=== PATIENT | male | born 1950 | race Caucasian/White ===

== ENCOUNTER 2019-06-20 18:18 | Inpatient (IN) | payer OTHER ==
[~2019-06-20] VITALS: Ht 172.7 cm; Wt 92.7 kg
[2019-06-20] MEDS ORDERED: AMLO10TA8 PO (18:44)
[2019-06-20] MEDS ORDERED: MELA3TAB19 PO (18:44)
[2019-06-20] MEDS ORDERED: ERGO500027 PO (18:44)
[2019-06-20] MEDS ORDERED: ASPI-630 PO (18:44)
[2019-06-20] MEDS ORDERED: TRAZ-120 PO ×2 (18:44)
[2019-06-20] MEDS ORDERED: traZODone 50 MG TABLET. PO PRN (18:45)
[2019-06-20 18:56] VITALS: BP 165/95
[2019-06-20] MEDS ORDERED: MAGNESIUM HYDROXIDE 2,400 MG/30 ML ORAL.SUSP. PO PRN (19:00)
[2019-06-20] MEDS ORDERED: METHYL SALICYLATE/MENTHOL TOPICAL OINTMENT 57GM TUBE. TP PRN (19:00)
[2019-06-20] MEDS ORDERED: ACETAMINOPHEN 325 MG TABLET PO PRN (19:00)
[2019-06-20] MEDS ORDERED: MAG HYDROX/AL HYDROX/SIMETH 30 ML ORAL.SUSP PO PRN (19:00)
--- NOTE | 2019-06-20 20:21 | PDOC ---
Exam Note: Jassi Note: Please also refer to the separate dictated note~for this date of service dictated separately. Discussed the patient with Nursing staff reviewed the chart.~Reviewed interim history and current functioning. Reviewed vital signs,~Labs/ Radiology~and current medications noted below. Continue current treatment with the changes noted in the dictated addendum note Assessment: Vital Signs/I&O: Vital Signs Date Time Temp Pulse Resp B/P (MAP) Pulse Ox O2 Delivery O2 Flow Rate FiO2 06/20/19 18:56 97.4 117 20 165/95 (118) 96 Current Medications: I have reviewed the current psychotropics carefully including drug interactions. Risk benefit ratio favors no change other than as noted in my dictated progress note. OBDULIA MOLINA MD Jun 20, 2019 20:21
[2019-06-20] MEDS: MELATONIN 3 MG TABLET PO SCH (21:00)
[2019-06-20] MEDS: traZODone 50 MG TABLET. PO SCH (21:00)
[2019-06-21 05:29] VITALS: BP 134/82
[2019-06-21 06:31] LABS: BASO # 0.1 x10^3/uL (0.0-0.2); BASO % 1 % (0-3); EOS # 0.3 x10^3/uL (0.0-0.7); EOS % 5 % (0-3); HEMATOCRIT 41.6 % (39.0-53.0); HEMOGLOBIN 13.9 g/dL (13.0-17.5); LYMPH # 1.3 x10^3/uL (1.0-4.8); LYMPH % 21 % (24-48); MEAN CORPUSCULAR HEMOGLOBIN 30 pg (25-35); MEAN CORPUSCULAR HGB CONC 33 g/dL (31-37); MEAN CORPUSCULAR VOLUME 91 fL (79-100); MONO % 17 % (0-9); NEUT # 3.5 x10^3uL (1.8-7.7); NEUT % 56 % (31-73); PLATELET COUNT 286 x10^3/uL (140-400); RED BLOOD COUNT 4.57 x10^6/uL (4.30-5.70); RED CELL DISTRIBUTION WIDTH 13.8 % (11.5-14.5); WHITE BLOOD COUNT 6.1 x10^3/uL (4.0-11.0)
[2019-06-21 06:53] LABS: ALBUMIN 3.4 g/dL (3.4-5.0); CALCIUM 8.6 mg/dL (8.5-10.1); CREATININE 0.9 mg/dL (0.7-1.3); GFR 83.4; POTASSIUM 4.4 mmol/L (3.5-5.1); TOTAL BILIRUBIN 0.4 mg/dL (0.2-1.0); TOTAL PROTEIN 6.7 g/dL (6.4-8.2)
[2019-06-21] MEDS: ASPIRIN 81 MG TAB.CHEW PO SCH (08:40)
[2019-06-21] MEDS: amLODIPine BESYLATE 10 MG TABLET PO SCH (08:41)
[2019-06-21 10:52] LABS: THYROID STIM HORMONE (TSH) 1.579 uIU/mL (0.358-3.740)
[2019-06-21 12:07] LABS: THYROXINE 5.5 ug/dL (4.5-12.0)
[2019-06-21 15:44] VITALS: BP 126/77
--- NOTE | 2019-06-21 19:42 | EKG ---
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
[2019-06-21] MEDS: MELATONIN 3 MG TABLET PO SCH (20:43)
[2019-06-21] MEDS: traZODone 50 MG TABLET. PO SCH (20:43)
[2019-06-21] MEDS ORDERED: DIVALPROEX 125 MG CAP.SPRINK PO SCH (21:00)
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
[2019-06-21 23:06] LABS: HEMOGLOBIN A1C 5.2 % (4.8-5.6)
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
[2019-06-22 05:51] VITALS: BP 126/73
[2019-06-22] MEDS: amLODIPine BESYLATE 10 MG TABLET PO SCH (09:00)
[2019-06-22] MEDS: ASPIRIN 81 MG TAB.CHEW PO SCH (09:00)
[2019-06-22] MEDS: DIVALPROEX 125 MG CAP.SPRINK PO SCH ×2 (09:00→17:50)
[2019-06-22 16:08] VITALS: BP 115/72
[2019-06-22] MEDS ORDERED: NEOMY/BACITR/POLYMYXIN OINT PACKET. TP PRN (18:45)
[2019-06-22] MEDS: MELATONIN 3 MG TABLET PO SCH (20:09)
[2019-06-22] MEDS: traZODone 50 MG TABLET. PO SCH (20:09)
--- NOTE | 2019-06-22 21:46 | PDOC ---
Exam Note: Jassi Note: Please also refer to the separate dictated note~for this date of service dictated separately.~Patient seen individually. Discussed the patient with Nursing staff reviewed the chart.~Reviewed interim history and current functioning. Reviewed vital signs,~Labs/ Radiology~and current medications noted below. Continue current treatment with the changes noted in the dictated addendum note Assessment: Vital Signs/I&O: Vital Signs Date Time Temp Pulse Resp B/P (MAP) Pulse Ox O2 Delivery O2 Flow Rate FiO2 06/22/19 16:08 97.2 72 20 115/72 (86) 98 06/21/19 05:29 Room Air I & O 06/21/19 06/21/19 06/22/19 15:00 23:00 07:00 Intake Total 600 ml 240 ml 240 ml Balance 600 ml 240 ml 240 ml Current Medications: Meds: Current Medications Medications (Trade) Dose Ordered Sig/Vicente Route PRN Reason Start Time Stop Time Status Last Admin Dose Admin Divalproex Sodium (Depakote Sprinkles) 125 mg BID@0900,1700 PO 06/22/19 09:00 06/22/19 17:50 I have reviewed the current psychotropics carefully including drug interactions. Risk benefit ratio favors no change other than as noted in my dictated progress note. Diagnosis: Problems: (1) Major neurocognitive disorder (2) Anxiety disorder (3) Frontotemporal dementia with behavioral disturbance (4) Impulse control disorder OBDULIA MOLINA MD Jun 22, 2019 21:46
--- NOTE | 2019-06-22 21:46 | PDOC ---
Exam Note: Jassi Note: This is a late entry for DOS 06/21/2019. Please also refer to the separate dictated note~for this date of service dictated separately.~Patient seen individually. Discussed the patient with Nursing staff reviewed the chart.~Reviewed interim history and current functioning. Reviewed vital signs,~Labs/ Radiology~and current medications noted below. Continue current treatment with the changes noted in the dictated addendum note Assessment: Vital Signs/I&O: Vital Signs Date Time Temp Pulse Resp B/P (MAP) Pulse Ox O2 Delivery O2 Flow Rate FiO2 06/22/19 16:08 97.2 72 20 115/72 (86) 98 06/21/19 05:29 Room Air I & O 06/21/19 06/21/19 06/22/19 15:00 23:00 07:00 Intake Total 600 ml 240 ml 240 ml Balance 600 ml 240 ml 240 ml Current Medications: Meds: Current Medications Medications (Trade) Dose Ordered Sig/Vicente Route PRN Reason Start Time Stop Time Status Last Admin Dose Admin Divalproex Sodium (Depakote Sprinkles) 125 mg BID@0900,1700 PO 06/22/19 09:00 06/22/19 17:50 I have reviewed the current psychotropics carefully including drug interactions. Risk benefit ratio favors no change other than as noted in my dictated progress note. Diagnosis: Problems: (1) Anxiety disorder (2) Frontotemporal dementia with behavioral disturbance (3) Impulse control disorder (4) Major neurocognitive disorder OBDULIA MOLINA MD Jun 22, 2019 21:46
[2019-06-23 05:50] VITALS: BP 127/78
[2019-06-23] MEDS: ASPIRIN 81 MG TAB.CHEW PO SCH (09:09)
[2019-06-23] MEDS: amLODIPine BESYLATE 10 MG TABLET PO SCH (09:09)
[2019-06-23] MEDS: DIVALPROEX 125 MG CAP.SPRINK PO SCH ×2 (09:09→17:13)
[2019-06-23 12:23] LABS: BACTERIA,URINE 0 /HPF (0-FEW); BILIRUBIN,URINE NEG (NEG); CLARITY,URINE CLEAR; COLOR,URINE YELLOW; GLUCOSE,URINE NEG (NEG); NITRITE,URINE NEG (NEG); RBC,URINE OCC /HPF (0-2); SQUAMOUS EPITHELIAL CELL,UR OCC /LPF; UROBILINOGEN,URINE 0.2 mg/dL (0.2 mg/dL); WBC,URINE RARE /HPF (0-4)
[2019-06-23 16:00] VITALS: BP 115/82
--- NOTE | 2019-06-23 20:22 | PDOC ---
Exam Note: Jassi Note: Please also refer to the separate dictated note~for this date of service dictated separately.~Patient seen individually. Discussed the patient with Nursing staff reviewed the chart.~Reviewed interim history and current functioning. Reviewed vital signs,~Labs/ Radiology~and current medications noted below. Continue current treatment with the changes noted in the dictated addendum note Assessment: Vital Signs/I&O: Vital Signs Date Time Temp Pulse Resp B/P (MAP) Pulse Ox O2 Delivery O2 Flow Rate FiO2 06/23/19 16:00 97.7 88 16 115/82 (93) 96 06/21/19 05:29 Room Air I & O 06/22/19 06/22/19 06/23/19 14:59 22:59 06:59 Intake Total 960 ml 840 ml Balance 960 ml 840 ml Labs: Laboratory Tests Test 06/23/19 11:15 Urine Collection Type Unknown Urine Color Yellow Urine Clarity Clear Urine pH 8.0 Urine Specific Erlanger 1.015 Urine Protein Neg (NEG-TRACE) Urine Glucose (UA) Neg mg/dL (NEG) Urine Ketones (Stick) Neg mg/dL (NEG) Urine Blood Neg (NEG) Urine Nitrite Neg (NEG) Urine Bilirubin Neg (NEG) Urine Urobilinogen Dipstick 0.2 mg/dL (0.2 mg/dL) Urine Leukocyte Esterase Neg (NEG) Urine RBC Occ /HPF (0-2) Urine WBC Rare /HPF (0-4) Urine Squamous Epithelial Cells Occ /LPF Urine Bacteria 0 /HPF (0-FEW) Current Medications: I have reviewed the current psychotropics carefully including drug interactions. Risk benefit ratio favors no change other than as noted in my dictated progress note. Diagnosis: Problems: (1) Major neurocognitive disorder (2) Anxiety disorder (3) Frontotemporal dementia with behavioral disturbance (4) Impulse control disorder OBDULIA MOLINA MD Jun 23, 2019 20:22
[2019-06-23] MEDS: MELATONIN 3 MG TABLET PO SCH (20:34)
[2019-06-23] MEDS: traZODone 50 MG TABLET. PO SCH (20:34)
--- NOTE | 2019-06-24 00:23 | PN ---
DATE: 06/22/2019 PSYCHIATRIC PROGRESS NOTE This late entry 06/22/2019 covers elements not covered in my initial note. SUBJECTIVE: I met with the patient evening of 06/22/2019. The patient slept 7 hours previous night. He has been cooperative, tolerating the Depakote, which was initiated for his impulse control consequent to the frontotemporal dementia. REVIEW OF SYSTEMS: No CV, , pulmonary, eye system symptoms on review. MENTAL STATUS EXAM: Reasonably oriented. Speech is coherent, abstraction fair, computation impaired, language function intact, attention span short. Mood and affect showing improvement. LABORATORY DATA: Reviewed. IMPRESSION: Unchanged from initial note. PLAN: No change from initial note. OBDULIA MOLINA MD DR: CHANNING/eileen JOB#: [id number] / [id number]
--- NOTE | 2019-06-24 00:26 | PN ---
DATE: 06/21/2019 PSYCHIATRIC PROGRESS NOTE This late entry of 06/21 covers elements not covered in my initial note. SUBJECTIVE: I met with the patient on the evening of 06/21. The patient had slept 6-1/4 hours the previous night. The patient continues to have poor social skills, somewhat impulsive, but is reasonably oriented. REVIEW OF SYSTEMS: No CV, , pulmonary, eye system symptoms on review. MENTAL STATUS EXAMINATION: Reasonably oriented. Speech is coherent, abstraction fair, computation impaired, language function intact. Mood and affect showing some improvement. No active suicidal or homicidal ideation. PLAN: May consider SSRIs for his anxiety, impulse control problems; Depakote as a mood stabilizer; and we will adjust it to reach therapeutic level. OBDULIA MOLINA MD DR: CHANNING/eileen JOB#: [id number] / [id number]
[2019-06-24 06:16] VITALS: BP 135/64
[2019-06-24 07:22] LABS: BASO # 0.1 x10^3/uL (0.0-0.2); BASO % 1 % (0-3); EOS # 0.5 x10^3/uL (0.0-0.7); EOS % 8 % (0-3); HEMATOCRIT 42.9 % (39.0-53.0); HEMOGLOBIN 14.5 g/dL (13.0-17.5); LYMPH # 1.2 x10^3/uL (1.0-4.8); LYMPH % 21 % (24-48); MEAN CORPUSCULAR HEMOGLOBIN 31 pg (25-35); MEAN CORPUSCULAR HGB CONC 34 g/dL (31-37); MEAN CORPUSCULAR VOLUME 92 fL (79-100); MONO # 0.9 x10^3/uL (0.0-1.1); MONO % 15 % (0-9); NEUT # 3.2 x10^3uL (1.8-7.7); NEUT % 55 % (31-73); PLATELET COUNT 309 x10^3/uL (140-400); RED BLOOD COUNT 4.68 x10^6/uL (4.30-5.70); WHITE BLOOD COUNT 5.9 x10^3/uL (4.0-11.0)
[2019-06-24 07:50] LABS: ALBUMIN 3.8 g/dL (3.4-5.0); ALK PHOS 135 U/L (46-116); ALT (SGPT) 43 U/L (16-63); ANION GAP 6 (6-14); AST (SGOT) 29 U/L (15-37); BLOOD UREA NITROGEN 14 mg/dL (8-26); BUN/CREATININE RATIO 16 (6-20); CALCIUM 9.2 mg/dL (8.5-10.1); CARBON DIOXIDE 32 mmol/L (21-32); CHLORIDE 106 mmol/L (98-107); CREATININE 0.9 mg/dL (0.7-1.3); GFR 83.4; GLUCOSE 104 mg/dL (70-99); POTASSIUM 4.1 mmol/L (3.5-5.1); SODIUM 144 mmol/L (136-145); TOTAL BILIRUBIN 0.3 mg/dL (0.2-1.0); TOTAL PROTEIN 7.6 g/dL (6.4-8.2)
[2019-06-24 07:51] LABS: VAL ACID 12 mcg/mL (50-100)
--- NOTE | 2019-06-24 08:20 | EKG ---
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
[2019-06-24] MEDS: ASPIRIN 81 MG TAB.CHEW PO SCH (08:33)
[2019-06-24] MEDS: amLODIPine BESYLATE 10 MG TABLET PO SCH (08:34)
[2019-06-24] MEDS: DIVALPROEX 125 MG CAP.SPRINK PO SCH ×2 (08:34→16:04)
[2019-06-24 15:45] VITALS: BP 123/70
[2019-06-24] MEDS: MELATONIN 3 MG TABLET PO SCH (19:55)
[2019-06-24] MEDS: traZODone 50 MG TABLET. PO SCH (19:55)
--- NOTE | 2019-06-24 20:46 | PDOC ---
Exam Note: Jassi Note: Please also refer to the separate dictated note~for this date of service dictated separately.~Patient seen individually. Discussed the patient with Nursing staff reviewed the chart.~Reviewed interim history and current functioning. Reviewed vital signs,~Labs/ Radiology~and current medications noted below. Continue current treatment with the changes noted in the dictated addendum note Assessment: Vital Signs/I&O: Vital Signs Date Time Temp Pulse Resp B/P (MAP) Pulse Ox O2 Delivery O2 Flow Rate FiO2 06/24/19 15:45 97.2 99 16 123/70 (87) 96 06/24/19 06:16 Room Air I & O 06/23/19 06/23/19 06/24/19 15:00 23:00 07:00 Intake Total 840 ml 240 ml 480 ml Balance 840 ml 240 ml 480 ml Labs: Laboratory Tests Test 06/24/19 06:43 White Blood Count 5.9 x10^3/uL (4.0-11.0) Red Blood Count 4.68 x10^6/uL (4.30-5.70) Hemoglobin 14.5 g/dL (13.0-17.5) Hematocrit 42.9 % (39.0-53.0) Mean Corpuscular Volume 92 fL (79-100) Mean Corpuscular Hemoglobin 31 pg (25-35) Mean Corpuscular Hemoglobin Concent 34 g/dL (31-37) Red Cell Distribution Width 14.0 % (11.5-14.5) Platelet Count 309 x10^3/uL (140-400) Neutrophils (%) (Auto) 55 % (31-73) Lymphocytes (%) (Auto) 21 % (24-48) L Monocytes (%) (Auto) 15 % (0-9) H Eosinophils (%) (Auto) 8 % (0-3) H Basophils (%) (Auto) 1 % (0-3) Neutrophils # (Auto) 3.2 x10^3uL (1.8-7.7) Lymphocytes # (Auto) 1.2 x10^3/uL (1.0-4.8) Monocytes # (Auto) 0.9 x10^3/uL (0.0-1.1) Eosinophils # (Auto) 0.5 x10^3/uL (0.0-0.7) Basophils # (Auto) 0.1 x10^3/uL (0.0-0.2) Sodium Level 144 mmol/L (136-145) Potassium Level 4.1 mmol/L (3.5-5.1) Chloride Level 106 mmol/L (98-107) Carbon Dioxide Level 32 mmol/L (21-32) Anion Gap 6 (6-14) Blood Urea Nitrogen 14 mg/dL (8-26) Creatinine 0.9 mg/dL (0.7-1.3) Estimated GFR (Cockcroft-Gault) 83.4 BUN/Creatinine Ratio 16 (6-20) Glucose Level 104 mg/dL (70-99) H Calcium Level 9.2 mg/dL (8.5-10.1) Total Bilirubin 0.3 mg/dL (0.2-1.0) Aspartate Amino Transferase (AST) 29 U/L (15-37) Alanine Aminotransferase (ALT) 43 U/L (16-63) Alkaline Phosphatase 135 U/L (46-116) H Total Protein 7.6 g/dL (6.4-8.2) Albumin 3.8 g/dL (3.4-5.0) Albumin/Globulin Ratio 1.0 (1.0-1.7) Valproic Acid Level 12 mcg/mL (50-100) L Valproic Acid Last Dose Date 06/23/19 Valproic Acid Last Dose Time 1700 Current Medications: I have reviewed the current psychotropics carefully including drug interactions. Risk benefit ratio favors no change other than as noted in my dictated progress note. Diagnosis: Problems: (1) Major neurocognitive disorder (2) Anxiety disorder (3) Frontotemporal dementia with behavioral disturbance (4) Impulse control disorder OBDULIA MOLINA MD Jun 24, 2019 20:46
[2019-06-25 05:45] VITALS: BP 125/81
[2019-06-25] MEDS: ASPIRIN 81 MG TAB.CHEW PO SCH (08:59)
[2019-06-25] MEDS: DIVALPROEX 125 MG CAP.SPRINK PO SCH ×2 (08:59→17:27)
[2019-06-25] MEDS: amLODIPine BESYLATE 10 MG TABLET PO SCH (08:59)
[2019-06-25 15:59] VITALS: BP 123/78
--- NOTE | 2019-06-25 17:10 | PN ---
DATE: 06/23/2019 PSYCHIATRIC PROGRESS NOTE This late entry 06/23/2019 covers elements not covered in my initial note. SUBJECTIVE: I met with the patient evening of 06/23/2019. The patient slept reasonably previous night. Overall, he states he is feeling better with the Depakote, feels his mind is clearer. I returned a call from the patient's daughter and discussed the patient's diagnosis, treatment options, placement options possibly at [facility] in [place]. REVIEW OF SYSTEMS: No CV, , pulmonary, eye system symptoms on review. MENTAL STATUS EXAMINATION: The patient is reasonably oriented. Speech is coherent, abstraction fair, computation impaired, language function intact, attention span short. Mood and affect improved. LABORATORY DATA: Reviewed. IMPRESSION: Unchanged from initial note. PLAN: No change from initial note. MAN Tonie MOLINA MD DR: CHANNING/eileen JOB#: [id number] / [id number]
--- NOTE | 2019-06-25 18:52 | PN ---
DATE: 06/24/2019 PSYCHIATRIC PROGRESS NOTE This late entry 06/24/2019 covers elements not covered in my initial note. SUBJECTIVE: I met with the patient evening of 06/24/2019. The patient slept 6-1/4 hours previous night. Overall, the patient is doing better per DARRICK Crouch. Valproic acid level is 12, subtherapeutic, but still adequate since he feels his mind is clearer, he is less impulsive and states his mind is "sharper." REVIEW OF SYSTEMS: No CV, , pulmonary, eye system symptoms on review. MENTAL STATUS EXAM: Reasonably oriented. Speech is coherent, abstraction fair, computation reasonable, language function intact, attention span short. Mood and affect is improved, less impulsive. LABORATORY DATA: Reviewed. IMPRESSION: Unchanged from initial note. PLAN: No change from initial note. MAN Tonie MOLINA MD DR: CHANNING/eileen JOB#: [id number] / [id number]
[2019-06-25] MEDS: traZODone 50 MG TABLET. PO SCH (19:57)
[2019-06-25] MEDS: MELATONIN 3 MG TABLET PO SCH (19:57)
--- NOTE | 2019-06-25 20:34 | PDOC ---
Exam Note: Jassi Note: Please also refer to the separate dictated note~for this date of service dictated separately.~Patient seen individually. Discussed the patient with Nursing staff reviewed the chart.~Reviewed interim history and current functioning. Reviewed vital signs,~Labs/ Radiology~and current medications noted below. Continue current treatment with the changes noted in the dictated addendum note Assessment: Vital Signs/I&O: Vital Signs Date Time Temp Pulse Resp B/P (MAP) Pulse Ox O2 Delivery O2 Flow Rate FiO2 06/25/19 15:59 98.0 97 14 123/78 (93) 96 Room Air I & O 06/24/19 06/24/19 06/25/19 15:00 23:00 07:00 Intake Total 1200 ml 600 ml 360 ml Balance 1200 ml 600 ml 360 ml Current Medications: I have reviewed the current psychotropics carefully including drug interactions. Risk benefit ratio favors no change other than as noted in my dictated progress note. Diagnosis: Problems: (1) Major neurocognitive disorder (2) Anxiety disorder (3) Frontotemporal dementia with behavioral disturbance (4) Impulse control disorder OBDULIA MOLINA MD Jun 25, 2019 20:34
[2019-06-26 05:51] VITALS: BP 136/79
[2019-06-26] MEDS: DIVALPROEX 125 MG CAP.SPRINK PO SCH ×2 (08:43→17:11)
[2019-06-26] MEDS: ASPIRIN 81 MG TAB.CHEW PO SCH (08:43)
[2019-06-26] MEDS: CHOLECALCIFEROL (VITAMIN D3) 50,000 UNIT CAPSULE PO SCH (08:43)
[2019-06-26] MEDS: amLODIPine BESYLATE 10 MG TABLET PO SCH (08:43)
[2019-06-26 16:38] VITALS: BP 130/77
[2019-06-26] MEDS: MELATONIN 3 MG TABLET PO SCH (20:14)
[2019-06-26] MEDS: traZODone 50 MG TABLET. PO SCH (20:14)
--- NOTE | 2019-06-26 20:34 | PDOC ---
Exam Note: Jassi Note: Please also refer to the separate dictated note~for this date of service dictated separately.~Patient seen individually. Discussed the patient with Nursing staff reviewed the chart.~Reviewed interim history and current functioning. Reviewed vital signs,~Labs/ Radiology~and current medications noted below. Continue current treatment with the changes noted in the dictated addendum note Assessment: Vital Signs/I&O: Vital Signs Date Time Temp Pulse Resp B/P (MAP) Pulse Ox O2 Delivery O2 Flow Rate FiO2 06/26/19 16:38 98.0 79 18 130/77 (94) 97 06/26/19 05:51 Room Air I & O 06/25/19 06/25/19 06/26/19 15:00 23:00 07:00 Intake Total 720 ml 360 ml Balance 720 ml 360 ml Current Medications: Meds: Current Medications Medications (Trade) Dose Ordered Sig/Vicente Route PRN Reason Start Time Stop Time Status Last Admin Dose Admin Vitamin D (Vitamin D3) 50,000 unit WEEKLY PO 06/26/19 09:00 06/26/19 08:43 I have reviewed the current psychotropics carefully including drug interactions. Risk benefit ratio favors no change other than as noted in my dictated progress note. Diagnosis: Problems: (1) Major neurocognitive disorder (2) Anxiety disorder (3) Frontotemporal dementia with behavioral disturbance (4) Impulse control disorder OBDULIA MOLINA MD Jun 26, 2019 20:34
[2019-06-27 06:25] VITALS: BP 149/80
[2019-06-27] MEDS: DIVALPROEX 125 MG CAP.SPRINK PO SCH ×2 (08:15→17:13)
[2019-06-27] MEDS: ASPIRIN 81 MG TAB.CHEW PO SCH (08:15)
[2019-06-27] MEDS: amLODIPine BESYLATE 10 MG TABLET PO SCH (08:16)
--- NOTE | 2019-06-27 12:27 | PN ---
DATE: 06/25/2019 This late entry 06/25 covers elements not covered in my initial note. SUBJECTIVE: I met with the patient evening of 06/25. The patient slept 7-1/4 hours previous night per Autumn. He reportedly had a good day, does have some poor social skills consistent with his frontotemporal dementia, but not agitated, disruptive, intrusive. Compliant with medications, pleasant. REVIEW OF SYSTEMS: No CV, , pulmonary, eye system symptoms on review. MENTAL STATUS EXAM: The patient is reasonably oriented. Speech is coherent, abstraction fair, computation reasonable, language function intact, attention span short. Mood and affect is improved. LABORATORY DATA: Reviewed. ASSESSMENT: He is tolerating the Depakote and I do not see a need to add SSRIs or cholinesterase inhibitors for now. PLAN: No further change for now. MAN Tonie MOLINA MD DR: CHANNING/eileen JOB#: [id number] / [id number]
[2019-06-27 15:55] VITALS: BP 135/78
--- NOTE | 2019-06-27 18:59 | PN ---
DATE: 06/26/2019 PSYCHIATRIC PROGRESS NOTE This late entry 06/26/2019 covers elements not covered in my initial note. SUBJECTIVE: I met with the patient evening of 06/26/2019, staff at the treatment team, meeting with the entire team in the morning and the patient's daughter who is a family physician attended this conference. Pennie, the daughter, reviewed the patient's history and we discussed the patient's progress, diagnosis, current treatment on Depakote while we are leaving open the option of using cholinesterase inhibitors and SSRIs, but only if needed. He is sleeping about 6-1/2 hours average, much more appropriate on the unit. REVIEW OF SYSTEMS: No CV, , Pulmonary, Eye, ENT system symptoms on review. MENTAL STATUS EXAM: Reasonably oriented. Speech is coherent, very pleasant, verbal, interactive, abstraction fair, computation impaired, language function intact, other times computation is reasonable. Mood and affect is improved. No suicidal or homicidal ideation. LABORATORY DATA: Reviewed. IMPRESSION: Unchanged from initial note. PLAN: No change from initial note. OBDULIA MOLINA MD DR: CHANNING/eileen JOB#: [id number] / [id number]
[2019-06-27] MEDS: traZODone 50 MG TABLET. PO SCH (19:57)
[2019-06-27] MEDS: MELATONIN 3 MG TABLET PO SCH (19:57)
--- NOTE | 2019-06-27 20:47 | PDOC ---
Exam Note: Jassi Note: Please also refer to the separate dictated note~for this date of service dictated separately.~Patient seen individually. Discussed the patient with Nursing staff reviewed the chart.~Reviewed interim history and current functioning. Reviewed vital signs,~Labs/ Radiology~and current medications noted below. Continue current treatment with the changes noted in the dictated addendum note Assessment: Vital Signs/I&O: Vital Signs Date Time Temp Pulse Resp B/P (MAP) Pulse Ox O2 Delivery O2 Flow Rate FiO2 06/27/19 15:55 98.6 85 20 135/78 (97) 96 06/26/19 05:51 Room Air I & O 06/26/19 06/26/19 06/27/19 15:00 23:00 07:00 Intake Total 1200 ml 480 ml 240 ml Balance 1200 ml 480 ml 240 ml Current Medications: I have reviewed the current psychotropics carefully including drug interactions. Risk benefit ratio favors no change other than as noted in my dictated progress note. Diagnosis: Problems: (1) Major neurocognitive disorder (2) Anxiety disorder (3) Frontotemporal dementia with behavioral disturbance (4) Impulse control disorder OBDULIA MOLINA MD Jun 27, 2019 20:47
[2019-06-28 05:10] VITALS: BP 121/77
[2019-06-28] MEDS: DIVALPROEX 125 MG CAP.SPRINK PO SCH ×2 (08:11→16:48)
[2019-06-28] MEDS: ASPIRIN 81 MG TAB.CHEW PO SCH (08:11)
[2019-06-28] MEDS: amLODIPine BESYLATE 10 MG TABLET PO SCH (08:12)
[2019-06-28 15:53] VITALS: BP 120/74
[2019-06-28] MEDS: MELATONIN 3 MG TABLET PO SCH (20:09)
[2019-06-28] MEDS: traZODone 50 MG TABLET. PO SCH (20:09)
--- NOTE | 2019-06-28 20:38 | PDOC ---
Exam Note: Jassi Note: Please also refer to the separate dictated note~for this date of service dictated separately.~Patient seen individually. Discussed the patient with Nursing staff reviewed the chart.~Reviewed interim history and current functioning. Reviewed vital signs,~Labs/ Radiology~and current medications noted below. Continue current treatment with the changes noted in the dictated addendum note Assessment: Vital Signs/I&O: Vital Signs Date Time Temp Pulse Resp B/P (MAP) Pulse Ox O2 Delivery O2 Flow Rate FiO2 06/28/19 15:53 98.2 90 16 120/74 (89) 94 06/28/19 05:10 Room Air I & O 06/27/19 06/27/19 06/28/19 14:59 22:59 06:59 Intake Total 840 ml 720 ml Balance 840 ml 720 ml Current Medications: I have reviewed the current psychotropics carefully including drug interactions. Risk benefit ratio favors no change other than as noted in my dictated progress note. Diagnosis: Problems: (1) Major neurocognitive disorder (2) Anxiety disorder (3) Frontotemporal dementia with behavioral disturbance (4) Impulse control disorder OBDULIA MOLINA MD Jun 28, 2019 20:38
[2019-06-29] MEDS: ASPIRIN 81 MG TAB.CHEW PO SCH (06:15)
[2019-06-29] MEDS: DIVALPROEX 125 MG CAP.SPRINK PO SCH ×2 (06:15→16:02)
[2019-06-29] MEDS: amLODIPine BESYLATE 10 MG TABLET PO SCH (06:15)
[2019-06-29 06:25] VITALS: BP 120/74
[2019-06-29 08:45] LABS: BASO # 0.1 x10^3/uL (0.0-0.2); BASO % 1 % (0-3); EOS # 0.3 x10^3/uL (0.0-0.7); EOS % 5 % (0-3); HEMATOCRIT 42.6 % (39.0-53.0); HEMOGLOBIN 14.4 g/dL (13.0-17.5); LYMPH # 1.2 x10^3/uL (1.0-4.8); LYMPH % 18 % (24-48); MEAN CORPUSCULAR HEMOGLOBIN 31 pg (25-35); MEAN CORPUSCULAR HGB CONC 34 g/dL (31-37); MEAN CORPUSCULAR VOLUME 91 fL (79-100); MONO # 0.9 x10^3/uL (0.0-1.1); MONO % 14 % (0-9); NEUT # 4.3 x10^3uL (1.8-7.7); NEUT % 63 % (31-73); PLATELET COUNT 314 x10^3/uL (140-400); RED BLOOD COUNT 4.69 x10^6/uL (4.30-5.70); RED CELL DISTRIBUTION WIDTH 13.7 % (11.5-14.5); WHITE BLOOD COUNT 6.8 x10^3/uL (4.0-11.0)
[2019-06-29 08:48] LABS: ALBUMIN 3.7 g/dL (3.4-5.0); CALCIUM 9.1 mg/dL (8.5-10.1); CREATININE 0.9 mg/dL (0.7-1.3); GFR 83.4; POTASSIUM 4.3 mmol/L (3.5-5.1); TOTAL BILIRUBIN 0.4 mg/dL (0.2-1.0); TOTAL PROTEIN 7.4 g/dL (6.4-8.2)
--- NOTE | 2019-06-29 15:12 | PN ---
DATE: 06/27/2019 PSYCHIATRIC PROGRESS NOTE This late entry June 27 covers elements not covered in my initial note. SUBJECTIVE: I met with the patient in the evening. Per Vel RN, the patient slept 6-3/4 hours previous night. He has some social skill deficits consistent with his frontal lobe dementia. At times, he is found holding puddings and snacks, picking some of these off the trays of other patients, but does redirect. Other than this, he has been appropriate. Memory is reasonable. REVIEW OF SYSTEMS: No CV, , pulmonary, eye system symptoms on review. MENTAL STATUS EXAM: Reasonably oriented. Speech is coherent, abstraction fair, computation impaired, language function intact, attention span short. Mood and affect have improved. LABORATORY DATA: Reviewed. IMPRESSION: Unchanged from initial note. PLAN: No change from initial note. MAN Tonie MOLINA MD DR: CHANNING/eileen JOB#: [id number] / [id number]
[2019-06-29 16:02] VITALS: BP 120/74
[2019-06-29] MEDS: MELATONIN 3 MG TABLET PO SCH (18:01)
[2019-06-29] MEDS: traZODone 50 MG TABLET. PO SCH (18:01)
--- NOTE | 2019-06-29 20:28 | PDOC ---
Exam Note: Jassi Note: Please also refer to the separate dictated note~for this date of service dictated separately.~Patient seen individually. Discussed the patient with Nursing staff reviewed the chart.~Reviewed interim history and current functioning. Reviewed vital signs,~Labs/ Radiology~and current medications noted below. Continue current treatment with the changes noted in the dictated addendum note Assessment: Vital Signs/I&O: Vital Signs Date Time Temp Pulse Resp B/P (MAP) Pulse Ox O2 Delivery O2 Flow Rate FiO2 06/29/19 16:02 98.0 78 18 120/74 (89) 96 06/28/19 05:10 Room Air I & O 06/28/19 06/28/19 06/29/19 15:00 23:00 07:00 Intake Total 1080 ml 360 ml Balance 1080 ml 360 ml Labs: Laboratory Tests Test 06/29/19 08:10 White Blood Count 6.8 x10^3/uL (4.0-11.0) Red Blood Count 4.69 x10^6/uL (4.30-5.70) Hemoglobin 14.4 g/dL (13.0-17.5) Hematocrit 42.6 % (39.0-53.0) Mean Corpuscular Volume 91 fL (79-100) Mean Corpuscular Hemoglobin 31 pg (25-35) Mean Corpuscular Hemoglobin Concent 34 g/dL (31-37) Red Cell Distribution Width 13.7 % (11.5-14.5) Platelet Count 314 x10^3/uL (140-400) Neutrophils (%) (Auto) 63 % (31-73) Lymphocytes (%) (Auto) 18 % (24-48) L Monocytes (%) (Auto) 14 % (0-9) H Eosinophils (%) (Auto) 5 % (0-3) H Basophils (%) (Auto) 1 % (0-3) Neutrophils # (Auto) 4.3 x10^3uL (1.8-7.7) Lymphocytes # (Auto) 1.2 x10^3/uL (1.0-4.8) Monocytes # (Auto) 0.9 x10^3/uL (0.0-1.1) Eosinophils # (Auto) 0.3 x10^3/uL (0.0-0.7) Basophils # (Auto) 0.1 x10^3/uL (0.0-0.2) Sodium Level 143 mmol/L (136-145) Potassium Level 4.3 mmol/L (3.5-5.1) Chloride Level 106 mmol/L (98-107) Carbon Dioxide Level 30 mmol/L (21-32) Anion Gap 7 (6-14) Blood Urea Nitrogen 14 mg/dL (8-26) Creatinine 0.9 mg/dL (0.7-1.3) Estimated GFR (Cockcroft-Gault) 83.4 BUN/Creatinine Ratio 16 (6-20) Glucose Level 89 mg/dL (70-99) Calcium Level 9.1 mg/dL (8.5-10.1) Total Bilirubin 0.4 mg/dL (0.2-1.0) Aspartate Amino Transferase (AST) 26 U/L (15-37) Alanine Aminotransferase (ALT) 37 U/L (16-63) Alkaline Phosphatase 134 U/L (46-116) H Total Protein 7.4 g/dL (6.4-8.2) Albumin 3.7 g/dL (3.4-5.0) Albumin/Globulin Ratio 1.0 (1.0-1.7) Current Medications: I have reviewed the current psychotropics carefully including drug interactions. Risk benefit ratio favors no change other than as noted in my dictated progress note. Diagnosis: Problems: (1) Major neurocognitive disorder (2) Anxiety disorder (3) Frontotemporal dementia with behavioral disturbance (4) Impulse control disorder OBDULIA MOLINA MD Jun 29, 2019 20:28
--- NOTE | 2019-06-29 23:37 | PN ---
DATE: 06/28/2019 PSYCHIATRIC PROGRESS NOTE This late entry of 06/28/2019 covers the elements not covered in my initial note. SUBJECTIVE: I met with the patient in the evening. The patient slept 7-1/2 hours previous night. He has been pleasant, cooperative, has been holding snags, part of this is his poor social skills consequent to frontal lobe damage. REVIEW OF SYSTEMS: No CV, , pulmonary, eye system symptoms on review. MENTAL STATUS EXAM: Reasonably oriented. Speech is coherent, abstraction fair, computation impaired, language function intact, attention span short. Mood and affect is improved. LABORATORY DATA: Reviewed. IMPRESSION: Unchanged from initial note. PLAN: No change from initial note. OBDULIA MOLINA MD DR: CHANNING/eileen JOB#: [id number] / [id number]
[2019-06-30 05:41] VITALS: BP 118/75
[2019-06-30] MEDS: amLODIPine BESYLATE 10 MG TABLET PO SCH (08:40)
[2019-06-30] MEDS: DIVALPROEX 125 MG CAP.SPRINK PO SCH ×2 (08:40→17:31)
[2019-06-30] MEDS: ASPIRIN 81 MG TAB.CHEW PO SCH (08:40)
[2019-06-30 15:34] VITALS: BP 133/77
[2019-06-30] MEDS: MELATONIN 3 MG TABLET PO SCH (20:04)
[2019-06-30] MEDS: traZODone 50 MG TABLET. PO SCH (20:04)
--- NOTE | 2019-06-30 20:04 | PDOC ---
Exam Note: Jassi Note: Please also refer to the separate dictated note~for this date of service dictated separately.~Patient seen individually. Discussed the patient with Nursing staff reviewed the chart.~Reviewed interim history and current functioning. Reviewed vital signs,~Labs/ Radiology~and current medications noted below. Continue current treatment with the changes noted in the dictated addendum note Assessment: Vital Signs/I&O: Vital Signs Date Time Temp Pulse Resp B/P (MAP) Pulse Ox O2 Delivery O2 Flow Rate FiO2 06/30/19 15:34 97.9 82 18 133/77 (95) 96 06/30/19 05:41 Room Air I & O 06/29/19 06/29/19 06/30/19 14:59 22:59 06:59 Intake Total 1200 ml 480 ml 120 ml Balance 1200 ml 480 ml 120 ml Current Medications: I have reviewed the current psychotropics carefully including drug interactions. Risk benefit ratio favors no change other than as noted in my dictated progress note. Diagnosis: Problems: (1) Major neurocognitive disorder (2) Anxiety disorder (3) Frontotemporal dementia with behavioral disturbance (4) Impulse control disorder OBDULIA MOLINA MD Jun 30, 2019 20:04
--- NOTE | 2019-06-30 22:18 | PN ---
DATE: 06/29/2019 PSYCHIATRIC PROGRESS NOTE This late entry of 06/29 covers elements not covered in my initial note. SUBJECTIVE: I met with the patient on the evening of 06/29. The patient slept 7 hours the previous night. He has been fairly cooperative, compliant on the unit; does have some poor social skills secondary to his frontal lobe damage. REVIEW OF SYSTEMS: No CV, , pulmonary, eye, ENT system symptoms on review. MENTAL STATUS EXAMINATION: The patient is reasonably oriented. Speech coherent; talked at length about his daughter, Pennie, and her 4 children, i.e., his grandchildren, and how Pennie while taking care of the children was trying to make appropriate arrangements for his placement and he is pleased with this. Speech is coherent, abstraction fair, computation reasonable, language function intact. Mood and affect was improved. LABORATORY DATA: Reviewed. IMPRESSION: Unchanged from initial note. PLAN: No change from initial note. Transition to nursing facility this week. OBDULIA MOLINA MD DR: CHANNING/eileen JOB#: [id number] / [id number]
[2019-07-01 06:16] VITALS: BP 121/78
[2019-07-01] MEDS: ASPIRIN 81 MG TAB.CHEW PO SCH (09:37)
[2019-07-01] MEDS: DIVALPROEX 125 MG CAP.SPRINK PO SCH ×2 (09:37→17:07)
[2019-07-01] MEDS: amLODIPine BESYLATE 10 MG TABLET PO SCH (09:38)
[2019-07-01 16:06] VITALS: BP 126/75
[2019-07-01] MEDS: MELATONIN 3 MG TABLET PO SCH (19:46)
[2019-07-01] MEDS: traZODone 50 MG TABLET. PO SCH (19:46)
--- NOTE | 2019-07-01 19:50 | PDOC ---
Exam Note: Jassi Note: Please also refer to the separate dictated note~for this date of service dictated separately.~Patient seen individually. Discussed the patient with Nursing staff reviewed the chart.~Reviewed interim history and current functioning. Reviewed vital signs,~Labs/ Radiology~and current medications noted below. Continue current treatment with the changes noted in the dictated addendum note Assessment: Vital Signs/I&O: Vital Signs Date Time Temp Pulse Resp B/P (MAP) Pulse Ox O2 Delivery O2 Flow Rate FiO2 07/01/19 16:06 98.1 84 18 126/75 (92) 95 06/30/19 05:41 Room Air I & O 06/30/19 06/30/19 07/01/19 15:00 23:00 07:00 Intake Total 1080 ml 240 ml 100 ml Balance 1080 ml 240 ml 100 ml Current Medications: I have reviewed the current psychotropics carefully including drug interactions. Risk benefit ratio favors no change other than as noted in my dictated progress note. Diagnosis: Problems: (1) Major neurocognitive disorder (2) Anxiety disorder (3) Frontotemporal dementia with behavioral disturbance (4) Impulse control disorder OBDULIA MOLINA MD Jul 01, 2019 19:50
--- NOTE | 2019-07-02 03:16 | PN ---
DATE: 06/30/2019 This late entry, 06/30/2019, covers elements not covered in my initial note. SUBJECTIVE: I met with the patient in the evening of 06/30/2019. The patient slept 6-1/2 hours previous night per DARRICK Cook. He has been interactive, appropriate, does have poor social skills consequent to his frontal lobe damage. REVIEW OF SYSTEMS: No CV, , pulmonary, or eye system symptoms on review. MENTAL STATUS EXAM: Reasonably oriented. Speech is coherent and has some latency. Abstraction fair, computation impaired, language function intact, and attention span short. Mood and affect withdrawn. LABORATORY DATA: Reviewed. IMPRESSION: Unchanged from initial note. PLAN: No change from initial note. MAN Tonie MOLINA MD DR: CHANNING/eileen JOB#: [id number] / [id number]
[2019-07-02 06:05] VITALS: BP 134/71
[2019-07-02] MEDS: DIVALPROEX 125 MG CAP.SPRINK PO SCH ×2 (08:22→17:31)
[2019-07-02] MEDS: ASPIRIN 81 MG TAB.CHEW PO SCH (08:22)
[2019-07-02] MEDS: amLODIPine BESYLATE 10 MG TABLET PO SCH (08:25)
[2019-07-02 16:23] VITALS: BP 139/76
--- NOTE | 2019-07-02 19:50 | PDOC ---
Exam Note: Jassi Note: Please also refer to the separate dictated note~for this date of service dictated separately.~Patient seen individually. Discussed the patient with Nursing staff reviewed the chart.~Reviewed interim history and current functioning. Reviewed vital signs,~Labs/ Radiology~and current medications noted below. Continue current treatment with the changes noted in the dictated addendum note Assessment: Vital Signs/I&O: Vital Signs Date Time Temp Pulse Resp B/P (MAP) Pulse Ox O2 Delivery O2 Flow Rate FiO2 07/02/19 16:23 97.8 84 18 139/76 (97) 96 06/30/19 05:41 Room Air I & O 07/01/19 07/01/19 07/02/19 15:00 23:00 07:00 Intake Total 1440 ml 360 ml Balance 1440 ml 360 ml Current Medications: I have reviewed the current psychotropics carefully including drug interactions. Risk benefit ratio favors no change other than as noted in my dictated progress note. Diagnosis: Problems: (1) Major neurocognitive disorder (2) Anxiety disorder (3) Frontotemporal dementia with behavioral disturbance (4) Impulse control disorder OBDULIA MOLINA MD Jul 02, 2019 19:50
[2019-07-02] MEDS: traZODone 50 MG TABLET. PO SCH (19:58)
[2019-07-02] MEDS: MELATONIN 3 MG TABLET PO SCH (19:59)
[2019-07-03 05:54] VITALS: BP 132/77
[2019-07-03] MEDS: amLODIPine BESYLATE 10 MG TABLET PO SCH (07:48)
[2019-07-03] MEDS: ASPIRIN 81 MG TAB.CHEW PO SCH (07:48)
[2019-07-03] MEDS: DIVALPROEX 125 MG CAP.SPRINK PO SCH ×2 (07:48→16:26)
[2019-07-03] MEDS: CHOLECALCIFEROL (VITAMIN D3) 50,000 UNIT CAPSULE PO SCH (07:52)
--- NOTE | 2019-07-03 10:24 | PN ---
DATE: 07/01/2019 PSYCHIATRIC PROGRESS NOTE This late entry 07/01/2019 covers elements not covered in my initial note. SUBJECTIVE: I met with the patient evening of 07/01/2019. The patient per DARRICK Crowder slept 6-3/4 hours previous night. Earlier in the day, had a call from [facility] Social Service staff indicating the patient had made sexually inappropriate comments to one of the nursing aides and then to [facility] herself. We did discuss informing the daughter about this and if the daughter is agreeable, we may consider hormone therapy if these persist. There was a concern how he would function at the new facility if these behaviors persisted, but we will watch another 24 hours and decide. REVIEW OF SYSTEMS: No CV, , pulmonary, eye, ENT system symptoms on review. Reliability fair. MENTAL STATUS EXAM: Oriented reasonably. Speech is coherent, abstraction fair, computation reasonable, language function intact. Mood and affect improved. LABORATORY DATA: Reviewed. IMPRESSION: Unchanged from initial note. PLAN: No change from initial note. OBDULIA MOLINA MD DR: CHANNING/eileen JOB#: [id number] / [id number]
[2019-07-03 15:59] VITALS: BP 133/79
[2019-07-03] MEDS: traZODone 50 MG TABLET. PO SCH (19:44)
[2019-07-03] MEDS: MELATONIN 3 MG TABLET PO SCH (19:44)
--- NOTE | 2019-07-03 19:56 | PDOC ---
Exam Note: Jassi Note: Please also refer to the separate dictated note~for this date of service dictated separately.~Patient seen individually. Discussed the patient with Nursing staff reviewed the chart.~Reviewed interim history and current functioning. Reviewed vital signs,~Labs/ Radiology~and current medications noted below. Continue current treatment with the changes noted in the dictated addendum note Assessment: Vital Signs/I&O: Vital Signs Date Time Temp Pulse Resp B/P (MAP) Pulse Ox O2 Delivery O2 Flow Rate FiO2 07/03/19 15:59 97.8 73 18 133/79 (97) 96 06/30/19 05:41 Room Air I & O 07/02/19 07/02/19 07/03/19 15:00 23:00 07:00 Intake Total 960 ml 600 ml Balance 960 ml 600 ml Current Medications: I have reviewed the current psychotropics carefully including drug interactions. Risk benefit ratio favors no change other than as noted in my dictated progress note. Diagnosis: Problems: (1) Major neurocognitive disorder (2) Anxiety disorder (3) Frontotemporal dementia with behavioral disturbance (4) Impulse control disorder OBDULIA MOLINA MD Jul 03, 2019 19:56
[2019-07-04 05:53] VITALS: BP 117/66
[2019-07-04] MEDS: ASPIRIN 81 MG TAB.CHEW PO SCH (07:43)
[2019-07-04] MEDS: amLODIPine BESYLATE 10 MG TABLET PO SCH (07:43)
[2019-07-04] MEDS: DIVALPROEX 125 MG CAP.SPRINK PO SCH ×2 (07:43→17:01)
[2019-07-04 16:12] VITALS: BP 134/75
[2019-07-04] MEDS: MELATONIN 3 MG TABLET PO SCH (20:11)
[2019-07-04] MEDS: traZODone 50 MG TABLET. PO SCH (20:11)
--- NOTE | 2019-07-04 20:32 | PDOC ---
Exam Note: Jassi Note: Please also refer to the separate dictated note~for this date of service dictated separately.~Patient seen individually. Discussed the patient with Nursing staff reviewed the chart.~Reviewed interim history and current functioning. Reviewed vital signs,~Labs/ Radiology~and current medications noted below. Continue current treatment with the changes noted in the dictated addendum note Assessment: Vital Signs/I&O: Vital Signs Date Time Temp Pulse Resp B/P (MAP) Pulse Ox O2 Delivery O2 Flow Rate FiO2 07/04/19 16:12 98.0 77 16 134/75 (94) 97 Room Air I & O 07/03/19 07/03/19 07/04/19 15:00 23:00 07:00 Intake Total 720 ml 960 ml Balance 720 ml 960 ml Current Medications: Meds: Current Medications Medications (Trade) Dose Ordered Sig/Vicente Route PRN Reason Start Time Stop Time Status Last Admin Dose Admin Medroxyprogesterone Acetate (Provera) 2.5 mg DAILY PO 07/04/19 09:00 07/06/19 21:00 07/04/19 07:43 I have reviewed the current psychotropics carefully including drug interactions. Risk benefit ratio favors no change other than as noted in my dictated progress note. Diagnosis: Problems: (1) Major neurocognitive disorder (2) Anxiety disorder (3) Frontotemporal dementia with behavioral disturbance (4) Impulse control disorder OBDULIA MOLINA MD Jul 04, 2019 20:32
--- NOTE | 2019-07-04 23:21 | PN ---
DATE: 07/02/2019 PSYCHIATRIC PROGRESS NOTE This late entry 07/02/2019 covers elements not covered in my initial note. SUBJECTIVE: I met with the patient evening of 07/02/2019. Per DARRICK Crowder, the patient slept 7 hours previous night. He has had no sexually inappropriate behaviors, though social service staff, Eula, indicated, he has made sexually suggestive statements to others and to her during visits. REVIEW OF SYSTEMS: No CV, , pulmonary, eye system symptoms on review. MENTAL STATUS EXAMINATION: Oriented to himself and situation. Speech is coherent, has some latency. Abstraction fair, computation impaired, language function intact. Mood and affect remain somewhat withdrawn at times, but overall improved. LABORATORY DATA: Reviewed. IMPRESSION: Unchanged from initial note. PLAN: No change from initial note. MAN Tonie MOLINA MD DR: CHANNING/eileen JOB#: [id number] / [id number]
--- NOTE | 2019-07-05 02:34 | PN ---
DATE: 07/03/2019 PSYCHIATRIC PROGRESS NOTE This late entry 07/03/2019 covers the elements not covered in my initial note. SUBJECTIVE: I met with the patient in the evening and staffed at a treatment team meeting with the entire team in the morning and later in the day, I also called the patient's daughter, Pennie, who is a physician herself to discuss the patient's progress. The patient has had some sexually inappropriate behaviors statements on the unit, but not physically, sexually inappropriate behaviors. Slept 7-1/4 hours previous night. Appetite is fair. REVIEW OF SYSTEMS: No CV, , pulmonary, eye system symptoms on review. MENTAL STATUS EXAM: Reasonably oriented. Speech is coherent, has some latency. Abstraction fair, computation impaired, language function intact. Mood and affect somewhat withdrawn. LABORATORY DATA: Reviewed. IMPRESSION: Unchanged from initial note. Frontotemporal dementia, impulse control disorder; anxiety disorder, unspecified. PLAN: After discussion with the patient's daughter be in agreement to start him on Provera 2.5 mg a day if approved by Dr. Youngblood from a medical standpoint. We will increase to 5 mg a day. We are trying to make sure his placement is not jeopardized in [place], which is good that he can be close to his daughter. Continue rest unchanged for now. MAN Tonie MOLINA MD DR: CHANNING/eileen JOB#: [id number] / [id number]
[2019-07-05 05:53] VITALS: BP 136/83
[2019-07-05] MEDS: ASPIRIN 81 MG TAB.CHEW PO SCH (08:20)
[2019-07-05] MEDS: amLODIPine BESYLATE 10 MG TABLET PO SCH (08:20)
[2019-07-05] MEDS: DIVALPROEX 125 MG CAP.SPRINK PO SCH ×2 (08:20→17:20)
[2019-07-05 08:24] LABS: ALBUMIN 3.6 g/dL (3.4-5.0); CALCIUM 8.7 mg/dL (8.5-10.1); CREATININE 0.8 mg/dL (0.7-1.3); GFR 95.6; POTASSIUM 4.2 mmol/L (3.5-5.1); TOTAL BILIRUBIN 0.5 mg/dL (0.2-1.0); TOTAL PROTEIN 7.2 g/dL (6.4-8.2)
[2019-07-05 08:25] LABS: BASO # 0.1 x10^3/uL (0.0-0.2); BASO % 1 % (0-3); EOS # 0.3 x10^3/uL (0.0-0.7); EOS % 5 % (0-3); HEMATOCRIT 42.7 % (39.0-53.0); HEMOGLOBIN 14.4 g/dL (13.0-17.5); LYMPH # 1.1 x10^3/uL (1.0-4.8); LYMPH % 17 % (24-48); MEAN CORPUSCULAR HEMOGLOBIN 30 pg (25-35); MEAN CORPUSCULAR HGB CONC 34 g/dL (31-37); MEAN CORPUSCULAR VOLUME 90 fL (79-100); MONO % 15 % (0-9); NEUT % 62 % (31-73); PLATELET COUNT 307 x10^3/uL (140-400); RED BLOOD COUNT 4.75 x10^6/uL (4.30-5.70); RED CELL DISTRIBUTION WIDTH 13.6 % (11.5-14.5); WHITE BLOOD COUNT 6.5 x10^3/uL (4.0-11.0)
[2019-07-05 15:54] VITALS: BP 111/79
--- NOTE | 2019-07-05 20:35 | PDOC ---
Exam Note: Jassi Note: Please also refer to the separate dictated note~for this date of service dictated separately.~Patient seen individually. Discussed the patient with Nursing staff reviewed the chart.~Reviewed interim history and current functioning. Reviewed vital signs,~Labs/ Radiology~and current medications noted below. Continue current treatment with the changes noted in the dictated addendum note Assessment: Vital Signs/I&O: Vital Signs Date Time Temp Pulse Resp B/P (MAP) Pulse Ox O2 Delivery O2 Flow Rate FiO2 07/05/19 15:54 97.0 80 18 111/79 (90) 96 07/05/19 05:53 Room Air I & O 07/04/19 07/04/19 07/05/19 15:00 23:00 07:00 Intake Total 1080 ml 480 ml Balance 1080 ml 480 ml Labs: Laboratory Tests Test 07/05/19 07:40 White Blood Count 6.5 x10^3/uL (4.0-11.0) Red Blood Count 4.75 x10^6/uL (4.30-5.70) Hemoglobin 14.4 g/dL (13.0-17.5) Hematocrit 42.7 % (39.0-53.0) Mean Corpuscular Volume 90 fL (79-100) Mean Corpuscular Hemoglobin 30 pg (25-35) Mean Corpuscular Hemoglobin Concent 34 g/dL (31-37) Red Cell Distribution Width 13.6 % (11.5-14.5) Platelet Count 307 x10^3/uL (140-400) Neutrophils (%) (Auto) 62 % (31-73) Lymphocytes (%) (Auto) 17 % (24-48) L Monocytes (%) (Auto) 15 % (0-9) H Eosinophils (%) (Auto) 5 % (0-3) H Basophils (%) (Auto) 1 % (0-3) Neutrophils # (Auto) 4.0 x10^3uL (1.8-7.7) Lymphocytes # (Auto) 1.1 x10^3/uL (1.0-4.8) Monocytes # (Auto) 1.0 x10^3/uL (0.0-1.1) Eosinophils # (Auto) 0.3 x10^3/uL (0.0-0.7) Basophils # (Auto) 0.1 x10^3/uL (0.0-0.2) Sodium Level 143 mmol/L (136-145) Potassium Level 4.2 mmol/L (3.5-5.1) Chloride Level 107 mmol/L (98-107) Carbon Dioxide Level 28 mmol/L (21-32) Anion Gap 8 (6-14) Blood Urea Nitrogen 11 mg/dL (8-26) Creatinine 0.8 mg/dL (0.7-1.3) Estimated GFR (Cockcroft-Gault) 95.6 BUN/Creatinine Ratio 14 (6-20) Glucose Level 97 mg/dL (70-99) Calcium Level 8.7 mg/dL (8.5-10.1) Total Bilirubin 0.5 mg/dL (0.2-1.0) Aspartate Amino Transferase (AST) 23 U/L (15-37) Alanine Aminotransferase (ALT) 32 U/L (16-63) Alkaline Phosphatase 128 U/L (46-116) H Total Protein 7.2 g/dL (6.4-8.2) Albumin 3.6 g/dL (3.4-5.0) Albumin/Globulin Ratio 1.0 (1.0-1.7) Current Medications: I have reviewed the current psychotropics carefully including drug interactions. Risk benefit ratio favors no change other than as noted in my dictated progress note. Diagnosis: Problems: (1) Major neurocognitive disorder (2) Anxiety disorder (3) Frontotemporal dementia with behavioral disturbance (4) Impulse control disorder OBDULIA MOLINA MD Jul 05, 2019 20:35
[2019-07-05] MEDS: traZODone 50 MG TABLET. PO SCH (21:00)
[2019-07-05] MEDS: MELATONIN 3 MG TABLET PO SCH (21:01)
[2019-07-06 05:44] VITALS: BP 116/54
[2019-07-06] MEDS: DIVALPROEX 125 MG CAP.SPRINK PO SCH ×2 (08:11→17:04)
[2019-07-06] MEDS: ASPIRIN 81 MG TAB.CHEW PO SCH (08:11)
[2019-07-06 08:12] VITALS: BP 162/78
[2019-07-06] MEDS: amLODIPine BESYLATE 10 MG TABLET PO SCH (08:13)
[2019-07-06 15:34] VITALS: BP 122/76
[2019-07-06] MEDS: traZODone 50 MG TABLET. PO SCH (19:49)
[2019-07-06] MEDS: MELATONIN 3 MG TABLET PO SCH (19:50)
--- NOTE | 2019-07-06 19:53 | PDOC ---
Exam Note: Jassi Note: Please also refer to the separate dictated note~for this date of service dictated separately.~Patient seen individually. Discussed the patient with Nursing staff reviewed the chart.~Reviewed interim history and current functioning. Reviewed vital signs,~Labs/ Radiology~and current medications noted below. Continue current treatment with the changes noted in the dictated addendum note Assessment: Vital Signs/I&O: Vital Signs Date Time Temp Pulse Resp B/P (MAP) Pulse Ox O2 Delivery O2 Flow Rate FiO2 07/06/19 15:34 98.3 84 18 122/76 (91) 98 07/05/19 05:53 Room Air I & O 07/05/19 07/05/19 07/06/19 15:00 23:00 07:00 Intake Total 840 ml 720 ml Balance 840 ml 720 ml Current Medications: I have reviewed the current psychotropics carefully including drug interactions. Risk benefit ratio favors no change other than as noted in my dictated progress note. Diagnosis: Problems: (1) Major neurocognitive disorder (2) Anxiety disorder (3) Frontotemporal dementia with behavioral disturbance (4) Impulse control disorder OBDULIA MOLINA MD Jul 06, 2019 19:53
--- NOTE | 2019-07-06 21:05 | PN ---
DATE: 07/04/2019 PSYCHIATRIC PROGRESS NOTE This late entry 07/04/2019 covers the elements not covered in my initial note. SUBJECTIVE: I met with the patient in the evening. Per Vel RN, the patient slept 7-1/2 hours previous night. He has not had any sexually inappropriate behaviors and is tolerating Provera 2.5 mg a day, which we will increase to 5 mg a day after 2 doses. REVIEW OF SYSTEMS: No CV, , pulmonary, eye, ENT system symptoms on review. MENTAL STATUS EXAM: Oriented to himself and situation. Speech is coherent, abstraction fair, computation reasonable, language function intact. Mood and affect is improved. IMPRESSION: Unchanged from initial note. PLAN: No change from initial note. MAN Tonie MOLINA MD DR: CHANNING/eileen JOB#: [id number] / [id number]
[2019-07-07 05:59] VITALS: BP 119/75
[2019-07-07] MEDS: DIVALPROEX 125 MG CAP.SPRINK PO SCH ×2 (08:14→17:09)
[2019-07-07] MEDS: ASPIRIN 81 MG TAB.CHEW PO SCH (08:14)
[2019-07-07] MEDS: amLODIPine BESYLATE 10 MG TABLET PO SCH (08:15)
[2019-07-07] MEDS: medroxyPROGESTERone 5 MG TABLET PO SCH (08:15)
--- NOTE | 2019-07-07 15:26 | PN ---
DATE: 07/05/2019 This late entry, 07/05/2019, covers the elements not covered in my initial note. SUBJECTIVE: I met with the patient in the evening. The patient slept 6-1/4 hours previous night. He has had no sexually inappropriate behavior, somewhat withdrawn, but appropriate. REVIEW OF SYSTEMS: No CV, , pulmonary, eye, or ENT system symptoms on review. Reliability fair. MENTAL STATUS EXAM: Oriented to himself and situation. Speech has some latency, coherent. Abstraction fair, computation impaired, language function intact, and attention span short. Mood and affect remains somewhat withdrawn. LABORATORY DATA: Reviewed. IMPRESSION: Unchanged from initial note. PLAN: No change from initial note. MAN Tonie MOLINA MD DR: CHANNING/eileen JOB#: [id number] / [id number]
--- NOTE | 2019-07-07 15:26 | PN ---
DATE: 07/06/2019 PSYCHIATRIC PROGRESS NOTE This late entry 07/06/2019 covers elements not covered in my initial note. SUBJECTIVE: I met with the patient in the evening. The patient slept 6-1/4 hours previous night. Per nursing report, he has been fairly appropriate. No sexually inappropriate behaviors noted. I talked to him at length about transition to the nursing facility next Sunday and he is very agreeable to it. He said he talked to his daughter, Pennie, and that two of his grandchildren are still sick, but improving. Quite animated, talking about this. REVIEW OF SYSTEMS: No CV, , pulmonary, eye, ENT system symptoms on review. MENTAL STATUS EXAM: Reasonably oriented. Speech is coherent, has some latency. Abstraction fair, computation impaired, language function intact. Mood and affect is improved. LABORATORY DATA: Reviewed. IMPRESSION: Unchanged from initial note. PLAN: No change from initial note. MAN Tonie MOLINA MD DR: CHANNING/eileen JOB#: [id number] / [id number]
[2019-07-07 15:50] VITALS: BP 145/88
[2019-07-07] MEDS: traZODone 50 MG TABLET. PO SCH (19:42)
[2019-07-07] MEDS: MELATONIN 3 MG TABLET PO SCH (19:42)
--- NOTE | 2019-07-07 19:47 | PDOC ---
Exam Note: Jassi Note: Please also refer to the separate dictated note~for this date of service dictated separately.~Patient seen individually. Discussed the patient with Nursing staff reviewed the chart.~Reviewed interim history and current functioning. Reviewed vital signs,~Labs/ Radiology~and current medications noted below. Continue current treatment with the changes noted in the dictated addendum note Assessment: Vital Signs/I&O: Vital Signs Date Time Temp Pulse Resp B/P (MAP) Pulse Ox O2 Delivery O2 Flow Rate FiO2 07/07/19 15:50 98.2 92 20 145/88 (107) 98 07/07/19 05:59 Room Air I & O 07/06/19 07/06/19 07/07/19 14:59 22:59 06:59 Intake Total 960 ml 720 ml Balance 960 ml 720 ml Current Medications: Meds: Current Medications Medications (Trade) Dose Ordered Sig/Vicente Route PRN Reason Start Time Stop Time Status Last Admin Dose Admin Medroxyprogesterone Acetate (Provera) 5 mg DAILY PO 07/07/19 09:00 07/07/19 08:15 I have reviewed the current psychotropics carefully including drug interactions. Risk benefit ratio favors no change other than as noted in my dictated progress note. Diagnosis: Problems: (1) Major neurocognitive disorder (2) Anxiety disorder (3) Frontotemporal dementia with behavioral disturbance (4) Impulse control disorder OBDULIA MOLINA MD Jul 07, 2019 19:47
[2019-07-07] MEDS ORDERED: ACET325T9 PO (22:08)
[2019-07-07] MEDS ORDERED: CHOL500021 PO (22:09)
[2019-07-07] MEDS ORDERED: DIVA125C2 PO (22:11)
[2019-07-07] MEDS ORDERED: MAG30ORA2 PO (22:12)
[2019-07-07] MEDS ORDERED: MAGN2400 PO (22:12)
[2019-07-07] MEDS ORDERED: METH28OI2 TP (22:13)
[2019-07-07] MEDS ORDERED: NEOM1OIN13 TP (22:16)
[2019-07-07] MEDS ORDERED: OLAN5TAB5 PO (22:17)
[2019-07-07] MEDS ORDERED: MEDR5TAB PO (22:19)
[2019-07-08 06:10] VITALS: BP 152/68
[2019-07-08 08:10] VITALS: BP 152/68
[2019-07-08] MEDS: DIVALPROEX 125 MG CAP.SPRINK PO SCH (08:10)
[2019-07-08] MEDS: ASPIRIN 81 MG TAB.CHEW PO SCH (08:10)
[2019-07-08] MEDS: medroxyPROGESTERone 5 MG TABLET PO SCH (08:10)
[2019-07-08] MEDS: amLODIPine BESYLATE 10 MG TABLET PO SCH (08:10)
--- NOTE | 2019-07-08 19:12 | DS ---
DATE OF DISCHARGE: 07/08/2019 PSYCHIATRIC DISCHARGE SUMMARY/PSYCHIATRIC PROGRESS NOTE This note covers elements not covered in my initial note 07/08/2019. REASON FOR ADMISSION: Please refer to the admission history for details. Briefly, patient is a 68-year-old male referred to us from the [facility] with a history of frontotemporal dementia. He had been living at home, was impulsive, delusional and socially inappropriate, intrusive, threatening to self-harm and kill other elderly demented patients. He was talking about violence. Prior to being at the [facility], he had wandered into the home of strangers and was arrested. The daughter had to bail him out and took him to the [facility]. He has had some short-term memory deficits, but globally cognitively he has been intact and oriented. SIGNIFICANT FINDINGS AND CLINICAL COURSE: Following admission, the patient was seen daily individually by myself from a psychiatric standpoint, medical followup per Dr. Youngblood. The patient was socially inappropriate at times, sexually inappropriate, but minimally so initially, but more of a problem later in the hospitalization. Provera was added 2.5 mg daily, increasing to 5 mg daily and he seemed to additionally respond to a combination of Depakote Sprinkles 125 mg twice a day. Even though the level was subtherapeutic at 12, it was adequate to help with his impulse control. He was maintained on melatonin 6 mg at bedtime, trazodone 25 mg q.i.d. p.r.n. 50 mg at bedtime. CONDITION AT DISCHARGE: Improved. REVIEW OF SYSTEMS: Prior to discharge on 07/08/2019. No CV, , pulmonary, eye, ENT system symptoms on review. MENTAL STATUS EXAM: Oriented to himself and situation. Speech is coherent, has some latency. Abstraction fair, computation impaired, language function intact, attention span short. Mood and affect is improved, less labile. LABORATORY DATA: Reviewed. No suicidal or homicidal ideation. No sexually inappropriate behaviors prior to discharge. FINAL DIAGNOSES: Major neurocognitive disorder, frontotemporal with delusion, behavioral disturbance, impulse control disorder; anxiety disorder, unspecified. Rest unchanged from admission. DISCHARGE MEDICATIONS: Please refer to the MRAD. DISCHARGE INSTRUCTIONS: Outpatient psychiatric and medical followup as arranged in [place], [place] where he had been residing at the facility close to his daughter. Time for discharge day management greater than 30 minutes. OBDULIA MOLINA MD DR: CHANNING/eileen JOB#: [id number] / [id number]
--- NOTE | 2019-07-08 19:49 | PDOC ---
Exam Note: Jassi Note: Please also refer to the separate dictated note~for this date of service dictated separately.~Patient seen individually. Discussed the patient with Nursing staff reviewed the chart.~Reviewed interim history and current functioning. Reviewed vital signs,~Labs/ Radiology~and current medications noted below. Continue current treatment with the changes noted in the dictated addendum note Assessment: Vital Signs/I&O: Vital Signs Date Time Temp Pulse Resp B/P (MAP) Pulse Ox O2 Delivery O2 Flow Rate FiO2 07/08/19 08:10 72 152/68 07/08/19 06:10 97.7 16 97 07/07/19 05:59 Room Air I & O 07/07/19 07/07/19 07/08/19 15:00 23:00 07:00 Intake Total 960 ml 240 ml 240 ml Balance 960 ml 240 ml 240 ml Current Medications: I have reviewed the current psychotropics carefully including drug interactions. Risk benefit ratio favors no change other than as noted in my dictated progress note. Diagnosis: Problems: (1) Major neurocognitive disorder (2) Anxiety disorder (3) Frontotemporal dementia with behavioral disturbance (4) Impulse control disorder OBDULIA MOLINA MD Jul 08, 2019 19:49
--- NOTE | 2019-07-08 23:14 | PN ---
DATE: 07/07/2019 PSYCHIATRIC PROGRESS NOTE This late entry, 07/07/2019, covers the elements not covered in my initial note. SUBJECTIVE: I met with the patient in the evening. Per Anupama RN, the patient slept 6-3/4 hours previous night. He has been appropriate with no sexually inappropriate behaviors noted. During the individual visit, he talked at some length. Having talked to his daughter, his 2 grandchildren are still not well, but he states the daughter intends to come and pick him up on 07/08/2019 and transfer him to the facility. REVIEW OF SYSTEMS: No CV, , pulmonary, or eye system symptoms on review. MENTAL STATUS EXAM: Reasonably oriented. Speech is coherent, abstraction fair, computation impaired, and language function intact. Mood and affect appears improved. LABORATORY DATA: Reviewed. IMPRESSION: Unchanged from initial note. PLAN: No change from initial note. MAN Tonie MOLINA MD DR: CHANNING/eileen JOB#: [id number] / [id number]
== END 2019-07-08 13:06 | DRG 57 ==
LOC: GEROPSY 18:19
PROVIDERS: ADMIT Psychiatry & Neurology Psychiatry; ATTEND Psychiatry & Neurology Psychiatry
DX: G31.09 Other frontotemporal neurocognitive disorder (principal); F01.51 Vascular dementia, unspecified severity, with behavioral disturbance; F02.81 Dementia in other diseases classified elsewhere, unspecified severity, with behavioral disturbance; F63.9 Impulse disorder, unspecified; F41.9 Anxiety disorder, unspecified; B35.1 Tinea unguium; E55.9 Vitamin D deficiency, unspecified; I10 Essential (primary) hypertension; M15.9 Polyosteoarthritis, unspecified; Z79.899 Other long term (current) drug therapy; Z86.73 Personal history of transient ischemic attack (TIA), and cerebral infarction without residual deficits
CPT/HCPCS: 36415; 80053; 80061; 80164; 81001; 82306; 82607; 83036; 83540; 83550; 83735; 84436; 84443; 84480; 85025; 86592; 93005

== ENCOUNTER 2020-02-23 10:07 | Inpatient (IN) | payer MEDICARE, MEDICAID ==
[~2020-02-23] VITALS: Ht 172.7 cm; Wt 86.5 kg
[~2020-02-23 10:07] MED LIST: ACET325T9 PO; AMLO10TA8 PO; ASPI-630 PO; CHOL500021 PO; DIVA125C2 PO; ERGO500027 PO; MAG30ORA2 PO; MAGN24003 PO; MEDR5TAB PO; MELA3TAB19 PO; METH28OI2 TP; NEOM1OIN13 TP; OLAN5TAB99 PO; TRAZ-120 PO
[2020-02-23] MEDS ORDERED: LORA10CA PO (10:37)
[2020-02-23] MEDS ORDERED: CALC250T PO (10:37)
[2020-02-23] MEDS ORDERED: ACET500T68 PO (10:37)
[2020-02-23] MEDS ORDERED: METO-239 PO (10:37)
[2020-02-23] MEDS ORDERED: CYCL-331 PO (10:37)
[2020-02-23] MEDS ORDERED: DICL100G18 TP (10:39)
[2020-02-23] MEDS ORDERED: MAG HYDROX/AL HYDROX/SIMETH 30 ML ORAL.SUSP PO PRN (10:45)
[2020-02-23] MEDS ORDERED: METHYL SALICYLATE/MENTHOL TOPICAL OINTMENT 57GM TUBE. TP PRN (10:45)
[2020-02-23] MEDS ORDERED: MAGNESIUM HYDROXIDE 2,400 MG/30 ML ORAL.SUSP. PO PRN (10:45)
[2020-02-23 11:06] VITALS: BP 156/82
--- NOTE | 2020-02-23 11:40 | RAD ---
CT HEAD INDICATION: Altered mental status COMPARISON: None Available. Exposure: One or more of the following individualized dose reduction techniques were utilized for this examination: 1. Automated exposure control 2. Adjustment of the mA and/or kV according to patient size 3. Use of iterative reconstruction technique TECHNIQUE: 5 mm contiguous axial images were obtained from the skull base to the vertex in both bone and soft tissue algorithm. FINDINGS: Mild bilateral periventricular white matter hypodensities likely chronic small vessel ischemic disease. No evidence of acute intracranial hemorrhage. No extra-axial fluid collections. No mass effect or midline shift. Ventricular size is appropriate. Basal cisterns are patent. No fractures identified.Fontana-white differentiation is preserved.Globes and orbits are within normal limits. Minimal mucosal thickening identified in the left maxillary sinus. IMPRESSION: No acute intracranial findings. Electronically signed by: Pablo Villegas MD (02/23/2020 11:36 AM) [id number]
[2020-02-23] MEDS ORDERED: DICLOFENAC SODIUM 1% TOPICAL GEL 100GM TUBE. TP PRN (14:15)
[2020-02-23 16:16] VITALS: BP 129/81
[2020-02-23] MEDS: CALCIUM CARBONATE 500 MG TABLET PO SCH (17:18)
[2020-02-23 20:31] LABS: BASO # 0.1 x10^3/uL (0.0-0.2); BASO % 2 % (0-3); EOS # 0.2 x10^3/uL (0.0-0.7); EOS % 3 % (0-3); HEMATOCRIT 40.7 % (39.0-53.0); HEMOGLOBIN 14.4 g/dL (13.0-17.5); LYMPH # 1.6 x10^3/uL (1.0-4.8); LYMPH % 18 % (24-48); MEAN CORPUSCULAR HEMOGLOBIN 32 pg (25-35); MEAN CORPUSCULAR HGB CONC 35 g/dL (31-37); MEAN CORPUSCULAR VOLUME 90 fL (79-100); MONO % 12 % (0-9); NEUT # 5.8 x10^3uL (1.8-7.7); NEUT % 66 % (31-73); PLATELET COUNT 336 x10^3/uL (140-400); RED BLOOD COUNT 4.51 x10^6/uL (4.30-5.70); RED CELL DISTRIBUTION WIDTH 13.2 % (11.5-14.5); WHITE BLOOD COUNT 8.7 x10^3/uL (4.0-11.0)
[2020-02-23 21:06] LABS: ALBUMIN 3.7 g/dL (3.4-5.0); CALCIUM 9.3 mg/dL (8.5-10.1); CREATININE 1.1 mg/dL (0.7-1.3); MAGNESIUM 2.1 mg/dL (1.8-2.4); POTASSIUM 3.7 mmol/L (3.5-5.1); TOTAL BILIRUBIN 0.4 mg/dL (0.2-1.0); TOTAL PROTEIN 7.4 g/dL (6.4-8.2)
[2020-02-23] MEDS: traZODone 50 MG TABLET. PO SCH (21:58)
[2020-02-23] MEDS: ACETAMINOPHEN 500 MG TABLET PO SCH (21:58)
[2020-02-23] MEDS ORDERED: CETIRIZINE HCL 10 MG TABLET PO PRN (22:00)
--- NOTE | 2020-02-23 22:02 | PDOC ---
Exam Note: Jassi Note: Please also refer to the separate dictated note~for this date of service dictated separately.~Patient seen individually. Discussed the patient with Nursing staff reviewed the chart.~Reviewed interim history and current functioning. Reviewed vital signs,~Labs/ Radiology~and current medications noted below. Continue current treatment with the changes noted in the dictated addendum note Assessment: Vital Signs/I&O: Vital Signs Date Time Temp Pulse Resp B/P (MAP) Pulse Ox O2 Delivery O2 Flow Rate FiO2 02/23/20 16:16 98.1 85 16 129/81 (97) 95 02/23/20 11:06 Room Air Labs: Laboratory Tests Test 02/23/20 20:20 White Blood Count 8.7 x10^3/uL (4.0-11.0) Red Blood Count 4.51 x10^6/uL (4.30-5.70) Hemoglobin 14.4 g/dL (13.0-17.5) Hematocrit 40.7 % (39.0-53.0) Mean Corpuscular Volume 90 fL (79-100) Mean Corpuscular Hemoglobin 32 pg (25-35) Mean Corpuscular Hemoglobin Concent 35 g/dL (31-37) Red Cell Distribution Width 13.2 % (11.5-14.5) Platelet Count 336 x10^3/uL (140-400) Neutrophils (%) (Auto) 66 % (31-73) Lymphocytes (%) (Auto) 18 % (24-48) L Monocytes (%) (Auto) 12 % (0-9) H Eosinophils (%) (Auto) 3 % (0-3) Basophils (%) (Auto) 2 % (0-3) Neutrophils # (Auto) 5.8 x10^3uL (1.8-7.7) Lymphocytes # (Auto) 1.6 x10^3/uL (1.0-4.8) Monocytes # (Auto) 1.0 x10^3/uL (0.0-1.1) Eosinophils # (Auto) 0.2 x10^3/uL (0.0-0.7) Basophils # (Auto) 0.1 x10^3/uL (0.0-0.2) Sodium Level 139 mmol/L (136-145) Potassium Level 3.7 mmol/L (3.5-5.1) Chloride Level 103 mmol/L (98-107) Carbon Dioxide Level 28 mmol/L (21-32) Anion Gap 8 (6-14) Blood Urea Nitrogen 12 mg/dL (8-26) Creatinine 1.1 mg/dL (0.7-1.3) Estimated GFR (Cockcroft-Gault) 66.0 BUN/Creatinine Ratio 11 (6-20) Glucose Level 100 mg/dL (70-99) H Calcium Level 9.3 mg/dL (8.5-10.1) Magnesium Level 2.1 mg/dL (1.8-2.4) Total Bilirubin 0.4 mg/dL (0.2-1.0) Aspartate Amino Transferase (AST) 27 U/L (15-37) Alanine Aminotransferase (ALT) 35 U/L (16-63) Alkaline Phosphatase 115 U/L (46-116) Total Protein 7.4 g/dL (6.4-8.2) Albumin 3.7 g/dL (3.4-5.0) Albumin/Globulin Ratio 1.0 (1.0-1.7) Current Medications: Meds: Current Medications Medications (Trade) Dose Ordered Sig/Vicente Route PRN Reason Start Time Stop Time Status Last Admin Dose Admin Acetaminophen (Tylenol) 1,000 mg BID PO 02/23/20 21:00 02/23/20 21:58 Trazodone HCl (Desyrel) 50 mg QHS PO 02/23/20 21:00 02/23/20 21:58 Calcium Carbonate/ Glycine (Oscal) 500 mg TIDAFTMEAL PO 02/23/20 18:00 02/23/20 17:18 I have reviewed the current psychotropics carefully including drug interactions. Risk benefit ratio favors no change other than as noted in my dictated progress note. Diagnosis: Problems: (1) Major neurocognitive disorder (2) Anxiety disorder (3) Frontotemporal dementia with behavioral disturbance (4) Impulse control disorder OBDULIA MOLINA MD Feb 23, 2020 22:02
--- NOTE | 2020-02-23 22:46 | HP ---
ADMIT DATE: 02/23/2020 PSYCHIATRIC ADMISSION HISTORY/EVALUATION This note covers elements not covered in my initial note 02/23/2020. IDENTIFYING DATA: The patient is a 69-year-old male referred to us from [facility] Emergency Room at 3:00 a.m. this morning when I was called by the nursing staff. The patient presented to the ER from [facility] on account of inappropriate sexual behavior, refusing medications, increased agitation. He was hospitalized here in the past in 06/2019 and was discharged on a combination of Provera for his sexually inappropriate behaviors and Depakote as a mood stabilizer along with olanzapine. His psychotropics had been discontinued at [facility] and some of his behaviors seemed to resurface with sexually inappropriate behaviors. He was also agitated, refusing medications, threatening another resident "I will rip your throat out." This happened because the other resident called him a "piece of shit." The patient's Depakote, olanzapine and Provera had been discontinued previously at the care home and he was restarted on Provera, sent to the ER and referred back to us due to his dangerous, out of control behaviors. CHIEF COMPLAINT: "I didn't do anything. He says things to me and I told him I would rip his throat out." HISTORY OF PRESENT ILLNESS: The patient has a history of worsening symptoms of depression, anxiety, mood lability, paranoia, marked agitation. Initially, he was thought to be confused, but he is oriented x 4. He is ex[employer], having served in [employer] and states he will use those skills to injure the other person. He has had mood swings and worsening paranoia. No active suicidal or homicidal ideation. PAST PSYCHIATRIC HISTORY: As above. PAST MEDICAL HISTORY: Hypertension, vitamin D deficiency, osteoarthritis, history of TIAs. CODE STATUS: Full code. ALLERGIES: HANK INHIBITORS, RIFAMPICIN. ACTIVITIES: Ambulates independently. DIET: Regular. ACCU-CHEKS: None. LABORATORY DATA: UA 02/23/2020 at the ER was negative. PSYCHOTROPICS: Zyprexa p.r.n., which we added following admission. Trazodone 50 mg at bedtime, Provera 2.5 mg daily. FAMILY HISTORY: Noncontributory. SOCIAL HISTORY: No history of alcohol, drug abuse, physical, sexual or elder abuse. He is not known to be a perpetrator. REACTION TO HOSPITALIZATION: The patient accepting of it. ASSETS: Supportive living back at the care home. REVIEW OF SYSTEMS: No CV, , pulmonary, eye, ENT system symptoms on review. MENTAL STATUS EXAMINATION: The patient is reasonably oriented, seen individually evening of 02/23/2020. Speech coherent. He is angry, irritable, paranoid, discussing the incident at the care home, prompting this referral. Abstraction fair, computation impaired, language function intact, attention span short. Mood and affect remains paranoid, labile at times, withdrawn. No suicidal or homicidal ideation. LABORATORY DATA: Reviewed. IMPRESSION: Schizoaffective disorder, bipolar type, mixed with psychotic features; anxiety disorder, unspecified; impulse control disorder, unspecified. Rest unchanged. PLAN: Admit to Geropsychiatry Unit at [facility]. I will see the patient daily individually from a psychiatric standpoint. Medical followup per Dr. Youngblood/Dr. Marinelli. Continue on his current psychotropics, add the Zyprexa p.r.n. Consider adding and restarting Depakote and olanzapine. We will make further adjustments as clinically indicated. ESTIMATED LENGTH OF STAY: 10-12 days. DISPOSITION: Plans back to care home when stable. OBDULIA MOLINA MD DR: CHANNING/eileen JOB#: [id number] / [id number]
[2020-02-24 05:00] VITALS: BP 149/72
[2020-02-24] MEDS: CALCIUM CARBONATE 500 MG TABLET PO SCH ×3 (08:34→16:59)
[2020-02-24] MEDS: METOPROLOL SUCC 24HR ER 25 MG TAB.ER.24H. PO SCH (08:35)
[2020-02-24] MEDS: medroxyPROGESTERone 5 MG TABLET PO SCH (08:35)
[2020-02-24] MEDS: amLODIPine BESYLATE 5 MG TABLET PO SCH (08:35)
[2020-02-24] MEDS: ACETAMINOPHEN 500 MG TABLET PO SCH ×2 (08:35→20:32)
--- NOTE | 2020-02-24 11:55 | CONS ---
DATE OF CONSULTATION: 02/24/2020 ATTENDING PHYSICIAN: Dr. Santamaria. REASON FOR CONSULTATION: We are asked to see this patient for medical consultation. HISTORY OF PRESENT ILLNESS: The patient is a 69-year-old gentleman with frontotemporal dementia and behavioral disturbances. He has been living at [facility]. He originally came [place] [facility]. The patient is pleasant, but somewhat confused. He has major neurocognitive disorder along with anxiety. He was sent here for further treatment and evaluation of his meds. ALLERGIES: HE HAS ALLERGIES TO HANK INHIBITORS, RAMIPRIL AND RIFAMPIN. CURRENT MEDICINES: Include Tylenol, amlodipine, calcium, Flexeril, diclofenac gel, loratadine, magnesium, Provera tablets, methyl salicylate, metoprolol and trazodone 50 mg at bedtime. SOCIAL HISTORY: He is a nonsmoker, nondrinker. FAMILY HISTORY: Unobtainable. REVIEW OF SYSTEMS: Unobtainable due to the patient's condition. PHYSICAL EXAMINATION: GENERAL: When I saw him, this is a pleasant gentleman. INITIAL VITAL SIGNS: Showed a blood pressure 129/81 mmHg, pulse is 85 and regular, temperature 98.3 degrees Fahrenheit, and his room air saturation were 95%. HEENT: Head is without trauma. The pupils are reactive. Sclerae are nonicteric. The oropharynx is clear. NECK: Supple, no bruits. LUNGS: Otherwise clear. CARDIOVASCULAR: Showed regular heart tones. No gallops. Peripheral pulses palpable and full. ABDOMEN: Soft, scaphoid, nontender, no organomegaly. Bowel sounds are normoactive. EXTREMITIES: Showed both knees are in braces to help with ambulation. There is trace edema. NEUROLOGIC: Focally intact. Speech is fluent. Cranial nerves 2 through 12 are intact. The tendon reflexes unremarkable. No focal deficits identified. At this time because of his arthritis, we did not assess his gait or his Romberg. PERTINENT LABORATORY DATA: His hemoglobin is maintained at 14.4 g/dL with a white count of 8700. Electrolytes within normal range. Creatinine is 1.1 mg/dL, nonfasting blood sugar 100. Transaminases, bilirubin and liver panel are all within normal range. ASSESSMENT: 1. This 69-year-old gentleman has frontotemporal dementia with behavioral issues. 2. Degenerative arthritis. 3. Essential hypertension. 4. The patient is stable from medical standpoint at this time. RECOMMENDATIONS: 1. The patient is medically stable. 2. I reviewed his medication. 3. We shall follow along closely during his inpatient stay. Thank you again for asking me to see this patient for medical consultation. CHARO STEEL MD DR: ADELINA/eileen JOB#: [id number] / [id number]
[2020-02-24 15:20] VITALS: BP 129/81
[2020-02-24 20:07] LABS: THYROXINE 6.7 ug/dL (4.5-12.0)
[2020-02-24] MEDS: DIVALPROEX ER 250 MG TAB.ER.24H. PO SCH (20:32)
[2020-02-24] MEDS: traZODone 50 MG TABLET. PO SCH (20:32)
--- NOTE | 2020-02-24 22:03 | PDOC ---
Exam Note: Jassi Note: Please also refer to the separate dictated note~for this date of service dictated separately.~Patient seen individually. Discussed the patient with Nursing staff reviewed the chart.~Reviewed interim history and current functioning. Reviewed vital signs,~Labs/ Radiology~and current medications noted below. Continue current treatment with the changes noted in the dictated addendum note Assessment: Vital Signs/I&O: Vital Signs Date Time Temp Pulse Resp B/P (MAP) Pulse Ox O2 Delivery O2 Flow Rate FiO2 02/24/20 20:43 98.4 97 02/24/20 15:20 85 18 129/81 (97) 02/23/20 11:06 Room Air Current Medications: Meds: Current Medications Medications (Trade) Dose Ordered Sig/Vicente Route PRN Reason Start Time Stop Time Status Last Admin Dose Admin Medroxyprogesterone Acetate (Provera) 2.5 mg DAILY PO 02/24/20 09:00 02/24/20 08:35 Metoprolol Succinate (Toprol Xl) 25 mg DAILY PO 02/24/20 09:00 02/24/20 08:35 Amlodipine Besylate (Norvasc) 5 mg DAILY PO 02/24/20 09:00 02/24/20 08:35 Divalproex Sodium (Depakote Er) 250 mg QHS PO 02/24/20 21:00 02/24/20 20:32 I have reviewed the current psychotropics carefully including drug interactions. Risk benefit ratio favors no change other than as noted in my dictated progress note. Diagnosis: Problems: (1) Schizoaffective disorder, bipolar type (2) Bipolar disorder, curr episode mixed, severe, with psychotic features (3) Anxiety disorder, unspecified (4) Impulse control disorder, unspecified (5) Major neurocognitive disorder OBDULIA MOLINA MD Feb 24, 2020 22:03
[2020-02-25 01:07] LABS: HEMOGLOBIN A1C 5.2 % (4.8-5.6)
[2020-02-25 06:03] VITALS: BP 124/71
--- NOTE | 2020-02-25 07:42 | PDOC ---
Exam Note: Jassi Note: This note is a late entry for 02/24/2020 covers elements not covered in my initial note. Subjective: The patient was seen on telehealth rounds in the evening of 02/24/2020 with Sami RN and Janette RN. COVID-19 screen has been done on all patients and staff members since one patient has turned up positive for COVID-19 on the unit today. The unit is on lockdown per the [facility] ([facility]Centers for Disease Control (CDC) due to the COVID positive patient on our unit, which was discovered. All patients are back in their rooms and are not using main dining room either to avoid group activities and exposure. Per Niya HOLLINGSWORTH, she slept 5 hours previous night. She had a good night and had done reasonably during the day, somewhat suspicious. I have reviewed his past inpatient psychiatric records and the time of discharge from our facility last year, he was on Depakote, schedule Zyprexa, and schedule Provera. We talked at length about how not to react to others at the facility he lives at since this gives them even more control on him than he is aware of. He is insightful about this. Review of Systems: Ambulates independently. No CV, , eye, ENT system symp toms on review. Mental Status Exam: Reasonably oriented. Speech is coherent, little pressured at times. Abstraction is fair. Computation is impaired. Language function is intact. Attention span short. Mood and affect remains somewhat labile, anxiou s. Laboratory Data: Reviewed. Impression: Bipolar 1 disorder mixed with psychotic features. Impulse control disorder, unspecified. Anxiety disorder unspecified. Plan: Continue current psychotropics from initial note. Start Depakote ER 250 mg h.s. Check CBC, CMP, valproic acid level in 3 days. Adjust to reach therapeutic level. Discussed with Niya HOLLINGSWORTH. Assessment: Vital Signs/I&O: Vital Signs Date Time Temp Pulse Resp B/P (MAP) Pulse Ox O2 Delivery O2 Flow Rate FiO2 02/25/20 06:03 97.9 64 18 124/71 (88) 95 02/23/20 11:06 Room Air I & O 02/24/20 02/24/20 02/25/20 15:00 23:00 07:00 Intake Total 960 ml 480 ml Balance 960 ml 480 ml Current Medications: Meds: Current Medications Medications (Trade) Dose Ordered Sig/Vicente Route PRN Reason Start Time Stop Time Status Last Admin Dose Admin Medroxyprogesterone Acetate (Provera) 2.5 mg DAILY PO 02/24/20 09:00 02/24/20 08:35 Metoprolol Succinate (Toprol Xl) 25 mg DAILY PO 02/24/20 09:00 02/24/20 08:35 Amlodipine Besylate (Norvasc) 5 mg DAILY PO 02/24/20 09:00 02/24/20 08:35 Divalproex Sodium (Depakote Er) 250 mg QHS PO 02/24/20 21:00 02/24/20 20:32 I have reviewed the current psychotropics carefully including drug interactions. Risk benefit ratio favors no change other than as noted in my dictated progress note. Diagnosis: Problems: (1) Major neurocognitive disorder (2) Impulse control disorder, unspecified (3) Anxiety disorder, unspecified (4) Bipolar disorder, curr episode mixed, severe, with psychotic features (5) Anxiety disorder (6) Impulse control disorder (7) Schizoaffective disorder, bipolar type OBDULIA MOLINA MD Feb 25, 2020 07:41
[2020-02-25] MEDS: METOPROLOL SUCC 24HR ER 25 MG TAB.ER.24H. PO SCH (08:40)
[2020-02-25] MEDS: amLODIPine BESYLATE 5 MG TABLET PO SCH (08:41)
[2020-02-25] MEDS: CALCIUM CARBONATE 500 MG TABLET PO SCH ×3 (08:41→17:10)
[2020-02-25] MEDS: ACETAMINOPHEN 500 MG TABLET PO SCH ×2 (08:41→20:25)
[2020-02-25] MEDS: medroxyPROGESTERone 5 MG TABLET PO SCH (08:41)
[2020-02-25 15:34] VITALS: BP 134/85
--- NOTE | 2020-02-25 15:34 | TX PLAN ---
Interdisciplinary Tx Plan Admission Information Feb 23, 2020 at 10:07 Legal Status (on Admission): Voluntary DPOA/Guardian Name: Adriana Olsen "La" Contact Other Contact Name: Pioneer Beard Other Contact Verified Code Status: Full Code Allergies: Coded Allergies: ramipril (Verified Allergy, Mild, Hives, 02/23/20) HANK Inhibitors (Verified Allergy, Unknown, 02/23/20) rifampin (Verified Allergy, Unknown, 02/23/20) Diagnoses Primary Diagnosis: Dementia with Behavioral Disturbance Reasons for Admission: Aggressive, Agitated, Poor impulse control, Other Problem in Patient's Words: Pt dtr believes that the other resident has been antagonizing pt for some time. But because pt is the one getting "aggressive" and is mobile, he will have to be moved. Additional Admission Comments: According to the intake pt was displaying inappropriate sexual behaviors, increased agitation, threatened another resident "I'll rip your thought out" because the other resident called him a "piece of shit", refusing medications Problems Active Problems: delusional Inactive Problems: Compliant with medications Compliant with cares Compiant with staff direction Compliant with wearing a mask on the unit Participating in group Pt Strengths/Limitations Ability for Ray: Poor Cognitive Functioning/Ability: Fair Communication Skills/Ability: Fair Financial Resources: Fair Insight/Judgement: Poor Intellectual Ability: Fair Physical Health: Poor Social Skills: Fair Stability in Family: Good Stability in School/Work: Poor Verbal Skills: Fair Discharge Criteria Discharge Criteria: Adequate arrangements @DC, Improved behavior, Improved mood/thought Preliminary Discharge Plan Preliminary DC Plan: Placement Needed Special Precautions Fall Risk: Low Initial D/C Plan Referrals to placements will be sent out as pt is not able to return to placement at [facility] Identified Discharge Needs: Referrals for a different level of care Currently Utilized Resources Currently Utilized Resources/P: Primary Care physician Referrals Community Resources: Referrals to a different level of care Identified Problems/Hx/Goals Objectives/Short-Term Goals Short Term Goals: Dec. Aggression, Dec. Outbursts, Medication Stabilization, Promote Coping Skill Short Term Goals in Patient's: N/A Interventions/Frequency Staff Interventions/Frequency&: Psychiatrist to assess pt at least 3x per week Social Work to assess pt at least 2x per week. Nursing to assess behaviors, medications and complete 15 minute checks. Encourage group participation in activities or 1:1 engagement based of Activity Dept assessment. 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 Once the recession hit, he was laid off and did odds and ends jobs. 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 Education: Graduated high school (12th) Community Follow-up Primary Care Physician Referal to psychiatrist/neurologist Community Provider/Family Inpu: I cannot keep moving him. I need someone who can maintain him and his behavior. Treatment Plan Explained Patient/Prep Person had this treatment plan explained to him/her as indicated by the signature below and has been given the opportunity to ask questions and make suggestions: Date: Patient/Prep Person Signature: Patient/Prep Person Decline: No (Pt daughter very active within pt care.) CLEMENT LANIER Feb 25, 2020 15:34
[2020-02-25] MEDS: DIVALPROEX ER 250 MG TAB.ER.24H. PO SCH (20:26)
[2020-02-25] MEDS: traZODone 50 MG TABLET. PO SCH (20:26)
--- NOTE | 2020-02-25 22:06 | PDOC ---
Exam Note: Jassi Note: Please also refer to the separate dictated note~for this date of service dictated separately.~Patient seen individually. Discussed the patient with Nursing staff reviewed the chart.~Reviewed interim history and current functioning. Reviewed vital signs,~Labs/ Radiology~and current medications noted below. Continue current treatment with the changes noted in the dictated addendum note Assessment: Vital Signs/I&O: Vital Signs Date Time Temp Pulse Resp B/P (MAP) Pulse Ox O2 Delivery O2 Flow Rate FiO2 02/25/20 19:03 97.9 02/25/20 15:34 92 18 134/85 (101) 96 02/23/20 11:06 Room Air I & O 02/24/20 02/24/20 02/25/20 15:00 23:00 07:00 Intake Total 960 ml 480 ml Balance 960 ml 480 ml Labs: Laboratory Tests Test 02/25/20 13:00 Coronavirus (COVID-19)(PCR) Negative (NEGATIVE) Current Medications: I have reviewed the current psychotropics carefully including drug interactions. Risk benefit ratio favors no change other than as noted in my dictated progress note. Diagnosis: Problems: (1) Major neurocognitive disorder (2) Impulse control disorder, unspecified (3) Anxiety disorder, unspecified (4) Bipolar disorder, curr episode mixed, severe, with psychotic features (5) Anxiety disorder (6) Impulse control disorder (7) Schizoaffective disorder, bipolar type OBDULIA MOLINA MD Feb 25, 2020 22:06
[2020-02-26 06:24] VITALS: BP 133/73
--- NOTE | 2020-02-26 07:09 | PDOC ---
Exam Note: Jassi Note: This note is a late entry for 02/25/2020 covers elements not covered in my initial note. Subjective: The patient was seen on telehealth rounds in the evening of 02/25/2020 with nursing staff. The unit is on lockdown due to the COVID positive patient on our unit, which was discovered. Each patient is in their room, not able to come out to the dining room or to interact with others according to the recommendation by the [facility]. Per Niya HOLLINGSWORTH, he slept 7 hours previous night. I met with him on telehealth rounds in the evening. Overall he had done better today. Review of Systems: No CV, , eye, ENT system symptoms on review. Mental Status Exam: Reasonably oriented. Speech is coherent. Abstraction is fair. Computation is impaired. Language function is intact. Attention span short. Mood and affect remains somewhat anxious, at times labile but improved. Laboratory Data: Reviewed. Impression: Bipolar 1 disorder mixed with psychotic features. Impulse control disorder, unspecified. Anxiety disorder unspecified. Plan: No change from initial note. We will adjust the Depakote ER currently at 250 mg h.s. We will draw labs on the 02/26 and adjust to reach therapeutic level. I addressed with him about being able to not react to everything thrown at him at the alf. Assessment: Vital Signs/I&O: Vital Signs Date Time Temp Pulse Resp B/P (MAP) Pulse Ox O2 Delivery O2 Flow Rate FiO2 02/26/20 06:24 97.9 69 18 133/73 (93) 97 02/23/20 11:06 Room Air I & O 02/25/20 02/25/20 02/26/20 14:59 22:59 06:59 Intake Total 960 ml 240 ml 0 ml Balance 960 ml 240 ml 0 ml Labs: Laboratory Tests Test 02/25/20 13:00 Coronavirus (COVID-19)(PCR) Negative (NEGATIVE) Current Medications: I have reviewed the current psychotropics carefully including drug interactions. Risk benefit ratio favors no change other than as noted in my dictated progress note. Diagnosis: Problems: (1) Major neurocognitive disorder (2) Schizoaffective disorder, bipolar type (3) Impulse control disorder, unspecified (4) Anxiety disorder, unspecified (5) Bipolar disorder, curr episode mixed, severe, with psychotic features (6) Anxiety disorder (7) Impulse control disorder OBDULIA MOLINA MD Feb 26, 2020 07:09
[2020-02-26] MEDS: CALCIUM CARBONATE 500 MG TABLET PO SCH ×3 (08:42→18:00)
[2020-02-26] MEDS: medroxyPROGESTERone 5 MG TABLET PO SCH (08:42)
[2020-02-26] MEDS: METOPROLOL SUCC 24HR ER 25 MG TAB.ER.24H. PO SCH (08:43)
[2020-02-26] MEDS: ACETAMINOPHEN 500 MG TABLET PO SCH ×2 (08:43→19:49)
[2020-02-26] MEDS: amLODIPine BESYLATE 5 MG TABLET PO SCH (08:43)
[2020-02-26 16:36] VITALS: BP 155/81
[2020-02-26] MEDS: traZODone 50 MG TABLET. PO SCH (19:48)
[2020-02-26] MEDS: DIVALPROEX ER 250 MG TAB.ER.24H. PO SCH (19:49)
--- NOTE | 2020-02-26 22:05 | PDOC ---
Exam Note: Jassi Note: Please also refer to the separate dictated note~for this date of service dictated separately.~Patient seen individually. Discussed the patient with Nursing staff reviewed the chart.~Reviewed interim history and current functioning. Reviewed vital signs,~Labs/ Radiology~and current medications noted below. Continue current treatment with the changes noted in the dictated addendum note Assessment: Vital Signs/I&O: Vital Signs Date Time Temp Pulse Resp B/P (MAP) Pulse Ox O2 Delivery O2 Flow Rate FiO2 02/26/20 18:21 98.6 02/26/20 16:36 71 18 155/81 (105) 96 Room Air I & O 02/25/20 02/25/20 02/26/20 15:00 23:00 07:00 Intake Total 960 ml 240 ml 0 ml Balance 960 ml 240 ml 0 ml Current Medications: I have reviewed the current psychotropics carefully including drug interactions. Risk benefit ratio favors no change other than as noted in my dictated progress note. Diagnosis: Problems: (1) Major neurocognitive disorder (2) Schizoaffective disorder, bipolar type (3) Impulse control disorder, unspecified (4) Anxiety disorder, unspecified (5) Bipolar disorder, curr episode mixed, severe, with psychotic features (6) Anxiety disorder (7) Impulse control disorder OBDULIA MOLINA MD Feb 26, 2020 22:05
--- NOTE | 2020-02-26 23:28 | PDOC ---
Exam Note: Jassi Note: This note for 02/26/2020 covers elements not covered in my initial note. Subjective: The patient was evaluated via telehealth rounds in the morning of 02/26/2020 for the treatment team meeting with [place] (social service staff), and Santa HOLLINGSWORTH. He was also evaluated in the evening on telehealth rounds with Reggie HOLLINGSWORTH. The patient is sleeping 5-6 hours. Appetite is 100%. He is COVID negative. He has been calm, pleasant, cooperative, walking the unit, tolerating the Depakote. He will be re-swabbed. He slept 5-1/2 hours previous night. Review of Systems: No CV, , pulmonary, eye, ENT system symptoms on review. Mental Status Exam: The patient is reasonably oriented. Speech is coherent, has some latency. Abstraction is fair. Computation is impaired. Language function is intact. Mood and affect remains somewhat withdrawn but improved. Laboratory Data: Reviewed. Impression: Bipolar 1 disorder mixed with psychotic features. Impulse control disorder, unspecified. Anxiety disorder unspecified. Plan: The patient has been started on Depakote ER 250 mg h.s. We will check CBC, CMP, valproic acid level in 3 days. Continue rest of the psychotropics unchanged. Assessment: Vital Signs/I&O: Vital Signs Date Time Temp Pulse Resp B/P (MAP) Pulse Ox O2 Delivery O2 Flow Rate FiO2 02/26/20 23:20 97.9 96 02/26/20 16:36 71 18 155/81 (105) Room Air I & O 02/25/20 02/25/20 02/26/20 15:00 23:00 07:00 Intake Total 960 ml 240 ml 0 ml Balance 960 ml 240 ml 0 ml Current Medications: I have reviewed the current psychotropics carefully including drug interactions. Risk benefit ratio favors no change other than as noted in my dictated progress note. Diagnosis: Problems: (1) Major neurocognitive disorder (2) Schizoaffective disorder, bipolar type (3) Impulse control disorder, unspecified (4) Anxiety disorder, unspecified (5) Bipolar disorder, curr episode mixed, severe, with psychotic features (6) Anxiety disorder (7) Impulse control disorder OBDULIA MOLINA MD Feb 26, 2020 23:28
[2020-02-27 06:24] VITALS: BP 150/84
[2020-02-27 06:24] LABS: BASO # 0.1 x10^3/uL (0.0-0.2); BASO % 1 % (0-3); EOS # 0.3 x10^3/uL (0.0-0.7); EOS % 4 % (0-3); HEMATOCRIT 39.2 % (39.0-53.0); HEMOGLOBIN 13.6 g/dL (13.0-17.5); LYMPH # 1.5 x10^3/uL (1.0-4.8); LYMPH % 23 % (24-48); MEAN CORPUSCULAR HEMOGLOBIN 32 pg (25-35); MEAN CORPUSCULAR HGB CONC 35 g/dL (31-37); MEAN CORPUSCULAR VOLUME 92 fL (79-100); MONO # 0.8 x10^3/uL (0.0-1.1); MONO % 13 % (0-9); NEUT # 3.7 x10^3uL (1.8-7.7); NEUT % 59 % (31-73); PLATELET COUNT 294 x10^3/uL (140-400); RED BLOOD COUNT 4.28 x10^6/uL (4.30-5.70); RED CELL DISTRIBUTION WIDTH 13.4 % (11.5-14.5); WHITE BLOOD COUNT 6.4 x10^3/uL (4.0-11.0)
[2020-02-27 06:35] LABS: ALBUMIN 3.5 g/dL (3.4-5.0); ALK PHOS 105 U/L (46-116); ALT (SGPT) 34 U/L (16-63); ANION GAP 6 (6-14); AST (SGOT) 25 U/L (15-37); BLOOD UREA NITROGEN 14 mg/dL (8-26); BUN/CREATININE RATIO 14 (6-20); CALCIUM 8.9 mg/dL (8.5-10.1); CARBON DIOXIDE 29 mmol/L (21-32); CHLORIDE 105 mmol/L (98-107); GFR 73.7; GLUCOSE 98 mg/dL (70-99); POTASSIUM 3.9 mmol/L (3.5-5.1); SODIUM 140 mmol/L (136-145); TOTAL BILIRUBIN 0.6 mg/dL (0.2-1.0)
[2020-02-27 06:40] LABS: VAL ACID 18 mcg/mL (50-100)
[2020-02-27] MEDS: medroxyPROGESTERone 5 MG TABLET PO SCH (08:08)
[2020-02-27] MEDS: ACETAMINOPHEN 500 MG TABLET PO SCH ×2 (08:08→19:35)
[2020-02-27] MEDS: amLODIPine BESYLATE 5 MG TABLET PO SCH (08:09)
[2020-02-27] MEDS: CALCIUM CARBONATE 500 MG TABLET PO SCH ×3 (08:09→17:28)
[2020-02-27] MEDS: METOPROLOL SUCC 24HR ER 25 MG TAB.ER.24H. PO SCH (08:09)
[2020-02-27 15:16] VITALS: BP 135/81
[2020-02-27] MEDS: DIVALPROEX ER 500 MG TAB.ER.24H PO SCH (19:34)
[2020-02-27] MEDS: traZODone 50 MG TABLET. PO SCH (19:35)
--- NOTE | 2020-02-27 21:57 | PDOC ---
Exam Note: Jassi Note: Please also refer to the separate dictated note~for this date of service dictated separately.~Patient seen individually. Discussed the patient with Nursing staff reviewed the chart.~Reviewed interim history and current functioning. Reviewed vital signs,~Labs/ Radiology~and current medications noted below. Continue current treatment with the changes noted in the dictated addendum note Assessment: Vital Signs/I&O: Vital Signs Date Time Temp Pulse Resp B/P (MAP) Pulse Ox O2 Delivery O2 Flow Rate FiO2 02/27/20 20:14 98.0 98 02/27/20 15:16 76 16 135/81 (99) Room Air I & O 02/26/20 02/26/20 02/27/20 15:00 23:00 07:00 Intake Total 960 ml 480 ml 240 ml Balance 960 ml 480 ml 240 ml Labs: Laboratory Tests Test 02/27/20 06:00 White Blood Count 6.4 x10^3/uL (4.0-11.0) Red Blood Count 4.28 x10^6/uL (4.30-5.70) L Hemoglobin 13.6 g/dL (13.0-17.5) Hematocrit 39.2 % (39.0-53.0) Mean Corpuscular Volume 92 fL (79-100) Mean Corpuscular Hemoglobin 32 pg (25-35) Mean Corpuscular Hemoglobin Concent 35 g/dL (31-37) Red Cell Distribution Width 13.4 % (11.5-14.5) Platelet Count 294 x10^3/uL (140-400) Neutrophils (%) (Auto) 59 % (31-73) Lymphocytes (%) (Auto) 23 % (24-48) L Monocytes (%) (Auto) 13 % (0-9) H Eosinophils (%) (Auto) 4 % (0-3) H Basophils (%) (Auto) 1 % (0-3) Neutrophils # (Auto) 3.7 x10^3uL (1.8-7.7) Lymphocytes # (Auto) 1.5 x10^3/uL (1.0-4.8) Monocytes # (Auto) 0.8 x10^3/uL (0.0-1.1) Eosinophils # (Auto) 0.3 x10^3/uL (0.0-0.7) Basophils # (Auto) 0.1 x10^3/uL (0.0-0.2) Sodium Level 140 mmol/L (136-145) Potassium Level 3.9 mmol/L (3.5-5.1) Chloride Level 105 mmol/L (98-107) Carbon Dioxide Level 29 mmol/L (21-32) Anion Gap 6 (6-14) Blood Urea Nitrogen 14 mg/dL (8-26) Creatinine 1.0 mg/dL (0.7-1.3) Estimated GFR (Cockcroft-Gault) 73.7 BUN/Creatinine Ratio 14 (6-20) Glucose Level 98 mg/dL (70-99) Calcium Level 8.9 mg/dL (8.5-10.1) Total Bilirubin 0.6 mg/dL (0.2-1.0) Aspartate Amino Transferase (AST) 25 U/L (15-37) Alanine Aminotransferase (ALT) 34 U/L (16-63) Alkaline Phosphatase 105 U/L (46-116) Total Protein 7.0 g/dL (6.4-8.2) Albumin 3.5 g/dL (3.4-5.0) Albumin/Globulin Ratio 1.0 (1.0-1.7) Valproic Acid Level 18 mcg/mL (50-100) L Valproic Acid Last Dose Date 02/26/2020 Valproic Acid Last Dose Time 2100 Current Medications: Meds: Current Medications Medications (Trade) Dose Ordered Sig/Vicente Route PRN Reason Start Time Stop Time Status Last Admin Dose Admin Divalproex Sodium (Depakote Er) 500 mg QHS PO 02/27/20 21:00 02/27/20 19:34 I have reviewed the current psychotropics carefully including drug interactions. Risk benefit ratio favors no change other than as noted in my dictated progress note. Diagnosis: Problems: (1) Major neurocognitive disorder (2) Schizoaffective disorder, bipolar type (3) Impulse control disorder, unspecified (4) Anxiety disorder, unspecified (5) Bipolar disorder, curr episode mixed, severe, with psychotic features (6) Anxiety disorder (7) Impulse control disorder OBDULIA MOLINA MD Feb 27, 2020 21:57
[2020-02-28 06:30] VITALS: BP 149/71
[2020-02-28] MEDS: amLODIPine BESYLATE 5 MG TABLET PO SCH (08:29)
[2020-02-28] MEDS: medroxyPROGESTERone 5 MG TABLET PO SCH (08:29)
[2020-02-28] MEDS: METOPROLOL SUCC 24HR ER 25 MG TAB.ER.24H. PO SCH (08:30)
[2020-02-28] MEDS: ACETAMINOPHEN 500 MG TABLET PO SCH ×2 (08:30→20:18)
[2020-02-28] MEDS: CALCIUM CARBONATE 500 MG TABLET PO SCH ×3 (08:30→16:48)
[2020-02-28 16:07] VITALS: BP 150/81
[2020-02-28] MEDS: DIVALPROEX ER 500 MG TAB.ER.24H PO SCH (20:18)
[2020-02-28] MEDS: traZODone 50 MG TABLET. PO SCH (20:18)
--- NOTE | 2020-02-28 21:54 | PDOC ---
Exam Note: Jassi Note: Please also refer to the separate dictated note~for this date of service dictated separately.~Patient seen individually. Discussed the patient with Nursing staff reviewed the chart.~Reviewed interim history and current functioning. Reviewed vital signs,~Labs/ Radiology~and current medications noted below. Continue current treatment with the changes noted in the dictated addendum note Assessment: Vital Signs/I&O: Vital Signs Date Time Temp Pulse Resp B/P (MAP) Pulse Ox O2 Delivery O2 Flow Rate FiO2 02/28/20 20:36 99.6 97 02/28/20 16:07 87 18 150/81 (104) Room Air I & O 02/27/20 02/27/20 02/28/20 15:00 23:00 07:00 Intake Total 760 ml 510 ml Balance 760 ml 510 ml Current Medications: I have reviewed the current psychotropics carefully including drug interactions. Risk benefit ratio favors no change other than as noted in my dictated progress note. Diagnosis: Problems: (1) Major neurocognitive disorder (2) Schizoaffective disorder, bipolar type (3) Impulse control disorder, unspecified (4) Anxiety disorder, unspecified (5) Bipolar disorder, curr episode mixed, severe, with psychotic features (6) Anxiety disorder (7) Impulse control disorder OBDULIA MOLINA MD Feb 28, 2020 21:54
[2020-02-29 06:29] VITALS: BP 145/71
--- NOTE | 2020-02-29 06:48 | PDOC ---
Exam Note: Jassi Note: This note is a late entry for 02/27/2020 covers elements not covered in my initial note. Subjective: The patient was evaluated on telehealth rounds in the evening of 02/27/2020 with Reggie HOLLINGSWORTH taking the camera around. Per Reggie HOLLINGSWORTH overall the patient has been fairly cooperative, gets a little anxious at times, redirects. He slept 7 hours previous night. He remains a little delusional, somewhat hypomanic at times. He has been talking about wanting to be discharged so he can go and live with his 20-year-old girlfriend. Review of Systems: No CV, , pulmonary, eye, ENT system symptoms on review. Mental Status Exam: The patient is reasonably oriented. Speech is coherent. Abstraction is fair. Computation is impaired. Language function is intact. Attention span short. Mood and affect remains delusional, hypomanic at times. Laboratory Data: Reviewed. Impression: Bipolar 1 disorder mixed with psychotic features. Impulse control disorder, unspecified. Anxiety disorder unspecified. Plan: The patients WBC is 6.4. Valproic acid level is 18. Continue rest of the psychotropics unchanged. Increase Depakote ER from 250 mg h.s. to 500 mg h.s. Check CBC, CMP, valproic acid level in 3 days. Continue rest of the psychotropics unchanged. I addressed the above with him at some length and the importance of keeping his mind busy during the day. We will provide a kevin for him to listen to music otherwise, engage himself since he is on COVID restrictions, restricted to his room. Assessment: Vital Signs/I&O: Vital Signs Date Time Temp Pulse Resp B/P (MAP) Pulse Ox O2 Delivery O2 Flow Rate FiO2 02/29/20 06:29 98.1 64 16 145/71 (95) 97 Room Air I & O 02/28/20 02/28/20 02/29/20 15:00 23:00 07:00 Intake Total 600 ml 220 ml Balance 600 ml 220 ml Current Medications: I have reviewed the current psychotropics carefully including drug interactions. Risk benefit ratio favors no change other than as noted in my dictated progress note. Diagnosis: Problems: (1) Major neurocognitive disorder (2) Schizoaffective disorder, bipolar type (3) Impulse control disorder, unspecified (4) Anxiety disorder, unspecified (5) Bipolar disorder, curr episode mixed, severe, with psychotic features (6) Anxiety disorder (7) Impulse control disorder OBDULIA MOLINA MD Feb 29, 2020 06:48
--- NOTE | 2020-02-29 06:59 | PDOC ---
Exam Note: Jassi Note: This note is a late entry for 02/28/2020 covers elements not covered in my initial note. Subjective: The patient was evaluated on telehealth rounds in the evening of 02/28/2020 with Santa HOLLINGSWORTH taking the camera around. Per Alexander RN, he slept 8 hours previous night. He has been listening to music on the kevin, keeping himself busy. Review of Systems: No CV, , pulmonary, eye, ENT system symptoms on review. Mental Status Exam: The patient is reasonably oriented. He is quite verbal, animated, appreciative of having had the opportunity to listen to music keeping his mind busy. Speech is coherent, has some latency. Abstraction is fair. Computation is impaired. Language function is intact. Mood and affect remains improved. Laboratory Data: Reviewed. Impression: Bipolar 1 disorder mixed with psychotic features. Impulse control disorder, unspecified. Anxiety disorder unspecified. Plan: Continue rest of the psychotropics unchanged. Assessment: Vital Signs/I&O: Vital Signs Date Time Temp Pulse Resp B/P (MAP) Pulse Ox O2 Delivery O2 Flow Rate FiO2 02/29/20 06:29 98.1 64 16 145/71 (95) 97 Room Air I & O 02/28/20 02/28/20 02/29/20 15:00 23:00 07:00 Intake Total 600 ml 220 ml Balance 600 ml 220 ml Current Medications: I have reviewed the current psychotropics carefully including drug interactions. Risk benefit ratio favors no change other than as noted in my dictated progress note. Diagnosis: Problems: (1) Major neurocognitive disorder (2) Schizoaffective disorder, bipolar type (3) Impulse control disorder, unspecified (4) Anxiety disorder, unspecified (5) Bipolar disorder, curr episode mixed, severe, with psychotic features (6) Anxiety disorder (7) Impulse control disorder OBDULIA MOLINA MD Feb 29, 2020 06:59
[2020-02-29] MEDS: ACETAMINOPHEN 500 MG TABLET PO SCH ×2 (08:15→19:57)
[2020-02-29] MEDS: amLODIPine BESYLATE 5 MG TABLET PO SCH (08:15)
[2020-02-29] MEDS: METOPROLOL SUCC 24HR ER 25 MG TAB.ER.24H. PO SCH (08:15)
[2020-02-29] MEDS: medroxyPROGESTERone 5 MG TABLET PO SCH (08:15)
[2020-02-29] MEDS: CALCIUM CARBONATE 500 MG TABLET PO SCH ×3 (08:16→17:14)
[2020-02-29 16:26] VITALS: BP 135/82
[2020-02-29] MEDS: traZODone 50 MG TABLET. PO SCH (19:57)
[2020-02-29] MEDS: DIVALPROEX ER 500 MG TAB.ER.24H PO SCH (19:57)
--- NOTE | 2020-02-29 21:54 | PDOC ---
Exam Note: Jassi Note: Please also refer to the separate dictated note~for this date of service dictated separately.~Patient seen individually. Discussed the patient with Nursing staff reviewed the chart.~Reviewed interim history and current functioning. Reviewed vital signs,~Labs/ Radiology~and current medications noted below. Continue current treatment with the changes noted in the dictated addendum note Assessment: Vital Signs/I&O: Vital Signs Date Time Temp Pulse Resp B/P (MAP) Pulse Ox O2 Delivery O2 Flow Rate FiO2 02/29/20 21:35 98.5 97 02/29/20 16:26 79 18 135/82 (99) 02/29/20 06:29 Room Air I & O 02/28/20 02/28/20 02/29/20 15:00 23:00 07:00 Intake Total 600 ml 220 ml Balance 600 ml 220 ml Current Medications: I have reviewed the current psychotropics carefully including drug interactions. Risk benefit ratio favors no change other than as noted in my dictated progress note. Diagnosis: Problems: (1) Major neurocognitive disorder (2) Schizoaffective disorder, bipolar type (3) Impulse control disorder, unspecified (4) Anxiety disorder, unspecified (5) Bipolar disorder, curr episode mixed, severe, with psychotic features (6) Impulse control disorder (7) Anxiety disorder (8) Frontotemporal dementia with behavioral disturbance OBDULIA MOLINA MD Feb 29, 2020 21:54
--- NOTE | 2020-02-29 23:04 | PDOC ---
Exam Note: Jassi Note: This note is for 02/29/2020 covers elements not covered in my initial note. Subjective: The patient was evaluated on telehealth rounds in the evening of 02/29/2020 with Santa HOLLINGSWORTH with the camera around. Per Santa HOLLINGSWORTH, he slept 7- 3/4 hours previous night. He had low-grade temperature last evening 99.6 degree s but today it has been unremarkable. Review of Systems: No CV, , pulmonary, eye, ENT system symptoms on review. Mental Status Exam: The patient is quite animated as I met with him in the evening audiovisually. Speech is coherent. Abstraction is fair. Computation is impaired. Language function is intact. Attention span is fair. Mood and affect has improved. Laboratory Data: Reviewed. Impression: Bipolar 1 disorder mixed with psychotic features. Impulse control disorder, unspecified. Anxiety disorder unspecified. Plan: Continue rest of the psychotropics unchanged. He is tolerating the increased Depakote ER 500 mg h.s. Labs and valproic acid level to be checked in 2 days. Assessment: Vital Signs/I&O: Vital Signs Date Time Temp Pulse Resp B/P (MAP) Pulse Ox O2 Delivery O2 Flow Rate FiO2 02/29/20 21:35 98.5 97 02/29/20 16:26 79 18 135/82 (99) 02/29/20 06:29 Room Air I & O 02/28/20 02/28/20 02/29/20 15:00 23:00 07:00 Intake Total 600 ml 220 ml Balance 600 ml 220 ml Current Medications: I have reviewed the current psychotropics carefully including drug interactions. Risk benefit ratio favors no change other than as noted in my dictated progress note. Diagnosis: Problems: (1) Major neurocognitive disorder (2) Schizoaffective disorder, bipolar type (3) Impulse control disorder, unspecified (4) Anxiety disorder, unspecified (5) Bipolar disorder, curr episode mixed, severe, with psychotic features (6) Anxiety disorder (7) Frontotemporal dementia with behavioral disturbance (8) Impulse control disorder OBDULIA MOLINA MD Feb 29, 2020 23:04
[2020-03-01 05:48] VITALS: BP 155/71
[2020-03-01 08:08] LABS: BASO # 0.1 x10^3/uL (0.0-0.2); BASO % 1 % (0-3); EOS # 0.2 x10^3/uL (0.0-0.7); EOS % 4 % (0-3); HEMATOCRIT 38.9 % (39.0-53.0); HEMOGLOBIN 13.4 g/dL (13.0-17.5); LYMPH # 1.1 x10^3/uL (1.0-4.8); LYMPH % 18 % (24-48); MEAN CORPUSCULAR HEMOGLOBIN 31 pg (25-35); MEAN CORPUSCULAR HGB CONC 35 g/dL (31-37); MEAN CORPUSCULAR VOLUME 91 fL (79-100); MONO # 0.8 x10^3/uL (0.0-1.1); MONO % 14 % (0-9); NEUT # 3.6 x10^3uL (1.8-7.7); NEUT % 63 % (31-73); PLATELET COUNT 322 x10^3/uL (140-400); RED BLOOD COUNT 4.28 x10^6/uL (4.30-5.70); RED CELL DISTRIBUTION WIDTH 13.4 % (11.5-14.5); WHITE BLOOD COUNT 5.8 x10^3/uL (4.0-11.0)
[2020-03-01 08:29] LABS: ANION GAP 6 (6-14); BLOOD UREA NITROGEN 15 mg/dL (8-26); CALCIUM 8.9 mg/dL (8.5-10.1); CARBON DIOXIDE 29 mmol/L (21-32); CHLORIDE 105 mmol/L (98-107); GFR 73.7; GLUCOSE 98 mg/dL (70-99); POTASSIUM 4.1 mmol/L (3.5-5.1); SODIUM 140 mmol/L (136-145)
[2020-03-01] MEDS: amLODIPine BESYLATE 5 MG TABLET PO SCH (08:30)
[2020-03-01] MEDS: CALCIUM CARBONATE 500 MG TABLET PO SCH ×3 (08:30→17:10)
[2020-03-01] MEDS: ACETAMINOPHEN 500 MG TABLET PO SCH ×2 (08:31→19:36)
[2020-03-01] MEDS: METOPROLOL SUCC 24HR ER 25 MG TAB.ER.24H. PO SCH (08:31)
[2020-03-01] MEDS: medroxyPROGESTERone 5 MG TABLET PO SCH (08:31)
[2020-03-01 08:32] LABS: VAL ACID 31 mcg/mL (50-100)
[2020-03-01 16:24] VITALS: BP 136/82
[2020-03-01] MEDS: traZODone 50 MG TABLET. PO SCH (19:36)
[2020-03-01] MEDS: DIVALPROEX ER 250 MG TAB.ER.24H. PO SCH (19:39)
--- NOTE | 2020-03-01 22:08 | PDOC ---
Exam Note: Jassi Note: Please also refer to the separate dictated note~for this date of service dictated separately.~Patient seen individually. Discussed the patient with Nursing staff reviewed the chart.~Reviewed interim history and current functioning. Reviewed vital signs,~Labs/ Radiology~and current medications noted below. Continue current treatment with the changes noted in the dictated addendum note Assessment: Vital Signs/I&O: Vital Signs Date Time Temp Pulse Resp B/P (MAP) Pulse Ox O2 Delivery O2 Flow Rate FiO2 03/01/20 20:59 97.9 98 03/01/20 16:24 88 18 136/82 (100) Room Air I & O 02/29/20 02/29/20 03/01/20 15:00 23:00 07:00 Intake Total 840 ml 720 ml Balance 840 ml 720 ml Labs: Laboratory Tests Test 03/01/20 07:10 White Blood Count 5.8 x10^3/uL (4.0-11.0) Red Blood Count 4.28 x10^6/uL (4.30-5.70) L Hemoglobin 13.4 g/dL (13.0-17.5) Hematocrit 38.9 % (39.0-53.0) L Mean Corpuscular Volume 91 fL (79-100) Mean Corpuscular Hemoglobin 31 pg (25-35) Mean Corpuscular Hemoglobin Concent 35 g/dL (31-37) Red Cell Distribution Width 13.4 % (11.5-14.5) Platelet Count 322 x10^3/uL (140-400) Neutrophils (%) (Auto) 63 % (31-73) Lymphocytes (%) (Auto) 18 % (24-48) L Monocytes (%) (Auto) 14 % (0-9) H Eosinophils (%) (Auto) 4 % (0-3) H Basophils (%) (Auto) 1 % (0-3) Neutrophils # (Auto) 3.6 x10^3uL (1.8-7.7) Lymphocytes # (Auto) 1.1 x10^3/uL (1.0-4.8) Monocytes # (Auto) 0.8 x10^3/uL (0.0-1.1) Eosinophils # (Auto) 0.2 x10^3/uL (0.0-0.7) Basophils # (Auto) 0.1 x10^3/uL (0.0-0.2) Sodium Level 140 mmol/L (136-145) Potassium Level 4.1 mmol/L (3.5-5.1) Chloride Level 105 mmol/L (98-107) Carbon Dioxide Level 29 mmol/L (21-32) Anion Gap 6 (6-14) Blood Urea Nitrogen 15 mg/dL (8-26) Creatinine 1.0 mg/dL (0.7-1.3) Estimated GFR (Cockcroft-Gault) 73.7 Glucose Level 98 mg/dL (70-99) Calcium Level 8.9 mg/dL (8.5-10.1) Valproic Acid Level 31 mcg/mL (50-100) L Valproic Acid Last Dose Date 02/29/20 Valproic Acid Last Dose Time 2100 Current Medications: Meds: Current Medications Medications (Trade) Dose Ordered Sig/Vicente Route PRN Reason Start Time Stop Time Status Last Admin Dose Admin Divalproex Sodium (Depakote Er) 750 mg QHS PO 03/01/20 21:00 03/01/20 19:39 I have reviewed the current psychotropics carefully including drug interactions. Risk benefit ratio favors no change other than as noted in my dictated progress note. Diagnosis: Problems: (1) Major neurocognitive disorder (2) Schizoaffective disorder, bipolar type (3) Impulse control disorder, unspecified (4) Anxiety disorder, unspecified (5) Bipolar disorder, curr episode mixed, severe, with psychotic features (6) Anxiety disorder (7) Frontotemporal dementia with behavioral disturbance (8) Impulse control disorder OBDULIA MOLINA MD Mar 01, 2020 22:07
[2020-03-02 06:08] VITALS: BP 139/76
[2020-03-02] MEDS: medroxyPROGESTERone 5 MG TABLET PO SCH (08:43)
[2020-03-02] MEDS: CALCIUM CARBONATE 500 MG TABLET PO SCH ×3 (08:43→17:58)
[2020-03-02] MEDS: ACETAMINOPHEN 500 MG TABLET PO SCH ×2 (08:43→20:04)
[2020-03-02] MEDS: METOPROLOL SUCC 24HR ER 25 MG TAB.ER.24H. PO SCH (08:43)
[2020-03-02] MEDS: amLODIPine BESYLATE 5 MG TABLET PO SCH (08:44)
[2020-03-02 15:47] VITALS: BP 165/74
[2020-03-02] MEDS: traZODone 50 MG TABLET. PO SCH (20:04)
[2020-03-02] MEDS: DIVALPROEX ER 250 MG TAB.ER.24H. PO SCH (20:04)
[2020-03-02] MEDS: CYCLOBENZAPRINE 10 MG TABLET. PO PRN (20:05)
[2020-03-02] MEDS: ACETAMINOPHEN 325 MG TABLET PO PRN (20:06)
--- NOTE | 2020-03-02 22:32 | PDOC ---
Exam Note: Jassi Note: Please also refer to the separate dictated note~for this date of service dictated separately.~Patient seen individually. Discussed the patient with Nursing staff reviewed the chart.~Reviewed interim history and current functioning. Reviewed vital signs,~Labs/ Radiology~and current medications noted below. Continue current treatment with the changes noted in the dictated addendum note Assessment: Vital Signs/I&O: Vital Signs Date Time Temp Pulse Resp B/P (MAP) Pulse Ox O2 Delivery O2 Flow Rate FiO2 03/02/20 21:23 98.6 96 03/02/20 18:06 Room Air 03/02/20 15:47 85 18 I & O 03/01/20 03/01/20 03/02/20 15:00 23:00 07:00 Intake Total 840 ml 480 ml Balance 840 ml 480 ml Current Medications: I have reviewed the current psychotropics carefully including drug interactions. Risk benefit ratio favors no change other than as noted in my dictated progress note. Diagnosis: Problems: (1) Major neurocognitive disorder (2) Schizoaffective disorder, bipolar type (3) Impulse control disorder, unspecified (4) Anxiety disorder, unspecified (5) Bipolar disorder, curr episode mixed, severe, with psychotic features (6) Anxiety disorder (7) Frontotemporal dementia with behavioral disturbance (8) Impulse control disorder OBDULIA MOLINA MD Mar 02, 2020 22:32
[2020-03-03 06:00] VITALS: BP 137/72
--- NOTE | 2020-03-03 07:04 | PDOC ---
Exam Note: Jassi Note: This note is a late entry for 03/01/2020 covers elements not covered in my initial note. Subjective: The patient was evaluated on telehealth rounds in the evening of 03/01/2020 with nursing staff. Per Santa HOLLINGSWORTH, he slept 7-1/2 hours previous night. Valproic acid level is 31 on Depakote ER 500 mg p.o. h.s. The patient has been quite appropriate on the unit. As we met individually, he repeatedly talked about ignoring the other person who he was reacting to at the group home. Review of Systems: No CV, , pulmonary, eye, ENT system symptoms on review. Mental Status Exam: The patient is quite animated, appropriate as I met with him audiovisually. Speech is coherent. Abstraction is fair. Computation is impaired. Language function is intact. Attention span is fair. Mood and affect has improved. Laboratory Data: Reviewed. Impression: Bipolar 1 disorder mixed with psychotic features. Impulse control disorder, unspecified. Anxiety disorder unspecified. Plan: Since the patients valproic acid is subtherapeutic at 31 we will increase Depakote ER from 500 mg h.s. to 750 mg h.s. Check CBC, CMP, and valproic acid level in 3 days. Continue rest unchanged. Assessment: Vital Signs/I&O: Vital Signs Date Time Temp Pulse Resp B/P (MAP) Pulse Ox O2 Delivery O2 Flow Rate FiO2 03/03/20 06:00 97.9 63 16 137/72 (93) 98 03/02/20 18:06 Room Air I & O0 03/02/20 03/02/20 03/03/20 15:00 23:00 07:00 Intake Total 720 ml 480 ml Balance 720 ml 480 ml Current Medications: I have reviewed the current psychotropics carefully including drug interactions. Risk benefit ratio favors no change other than as noted in my dictated progress note. Diagnosis: Problems: (1) Major neurocognitive disorder (2) Schizoaffective disorder, bipolar type (3) Impulse control disorder, unspecified (4) Anxiety disorder, unspecified (5) Bipolar disorder, curr episode mixed, severe, with psychotic features (6) Anxiety disorder (7) Frontotemporal dementia with behavioral disturbance (8) Impulse control disorder OBDULIA MOLINA MD Mar 03, 2020 07:04
--- NOTE | 2020-03-03 07:13 | PDOC ---
Exam Note: Jassi Note: This note is late entry for 03/02/2020 covers elements not covered in my initial note. Subjective: The patient was evaluated on telehealth rounds in the evening of 03/02/2020 with Otilia, nursing staff. Per Vel HOLLINGSWORTH, he slept 7-1/4 hours previous night. Overall he had a good day. At times he appears disoriented to the day and date but behaviorally less impulsive. Review of Systems: No CV, , pulmonary, eye, ENT system symptoms on review. Mental Status Exam: The patient is quite animated, verbal, interactive, and appropriate with me during the audiovisual visit. Speech is coherent. Abstraction is fair. Computation is impaired. Language function is intact. Attention span is fair. Mood and affect has improved. No suicidal or homicidal ideation. Laboratory Data: Reviewed. Impression: Bipolar 1 disorder mixed with psychotic features. Impulse control disorder, unspecified. Anxiety disorder unspecified. Plan: No change from initial note. Assessment: Vital Signs/I&O: Vital Signs Date Time Temp Pulse Resp B/P (MAP) Pulse Ox O2 Delivery O2 Flow Rate FiO2 03/03/20 06:00 97.9 63 16 137/72 (93) 98 03/02/20 18:06 Room Air I & O 03/02/20 03/02/20 03/03/20 15:00 23:00 07:00 Intake Total 720 ml 480 ml Balance 720 ml 480 ml Current Medications: I have reviewed the current psychotropics carefully including drug interactions. Risk benefit ratio favors no change other than as noted in my dictated progress note. Diagnosis: Problems: (1) Major neurocognitive disorder (2) Schizoaffective disorder, bipolar type (3) Impulse control disorder, unspecified (4) Anxiety disorder, unspecified (5) Bipolar disorder, curr episode mixed, severe, with psychotic features (6) Anxiety disorder (7) Frontotemporal dementia with behavioral disturbance (8) Impulse control disorder OBDULIA MOLINA MD Mar 03, 2020 07:13
[2020-03-03] MEDS: METOPROLOL SUCC 24HR ER 25 MG TAB.ER.24H. PO SCH (08:30)
[2020-03-03] MEDS: medroxyPROGESTERone 5 MG TABLET PO SCH (08:31)
[2020-03-03] MEDS: CALCIUM CARBONATE 500 MG TABLET PO SCH ×3 (08:31→17:17)
[2020-03-03] MEDS: amLODIPine BESYLATE 5 MG TABLET PO SCH (08:31)
[2020-03-03] MEDS: ACETAMINOPHEN 500 MG TABLET PO SCH ×2 (08:31→20:28)
[2020-03-03 15:36] VITALS: BP 133/77
[2020-03-03] MEDS: DIVALPROEX ER 250 MG TAB.ER.24H. PO SCH (20:28)
[2020-03-03] MEDS: traZODone 50 MG TABLET. PO SCH (20:28)
--- NOTE | 2020-03-03 22:03 | PDOC ---
Exam Note: Jassi Note: Please also refer to the separate dictated note~for this date of service dictated separately.~Patient seen individually. Discussed the patient with Nursing staff reviewed the chart.~Reviewed interim history and current functioning. Reviewed vital signs,~Labs/ Radiology~and current medications noted below. Continue current treatment with the changes noted in the dictated addendum note Assessment: Vital Signs/I&O: Vital Signs Date Time Temp Pulse Resp B/P (MAP) Pulse Ox O2 Delivery O2 Flow Rate FiO2 03/03/20 19:55 98.4 96 03/03/20 15:36 81 16 133/77 (95) 03/02/20 18:06 Room Air I & O 03/02/20 03/02/20 03/03/20 15:00 23:00 07:00 Intake Total 720 ml 480 ml Balance 720 ml 480 ml Current Medications: I have reviewed the current psychotropics carefully including drug interactions. Risk benefit ratio favors no change other than as noted in my dictated progress note. Diagnosis: Problems: (1) Major neurocognitive disorder (2) Schizoaffective disorder, bipolar type (3) Impulse control disorder, unspecified (4) Anxiety disorder, unspecified (5) Bipolar disorder, curr episode mixed, severe, with psychotic features (6) Anxiety disorder (7) Frontotemporal dementia with behavioral disturbance (8) Impulse control disorder OBDULIA MOLINA MD Mar 03, 2020 22:03
[2020-03-04 06:13] LABS: BASO # 0.1 x10^3/uL (0.0-0.2); BASO % 2 % (0-3); EOS # 0.3 x10^3/uL (0.0-0.7); EOS % 5 % (0-3); HEMATOCRIT 37.1 % (39.0-53.0); HEMOGLOBIN 12.9 g/dL (13.0-17.5); LYMPH # 1.5 x10^3/uL (1.0-4.8); LYMPH % 29 % (24-48); MEAN CORPUSCULAR HEMOGLOBIN 32 pg (25-35); MEAN CORPUSCULAR HGB CONC 35 g/dL (31-37); MEAN CORPUSCULAR VOLUME 91 fL (79-100); MONO # 0.8 x10^3/uL (0.0-1.1); MONO % 15 % (0-9); NEUT # 2.6 x10^3uL (1.8-7.7); NEUT % 50 % (31-73); PLATELET COUNT 294 x10^3/uL (140-400); RED BLOOD COUNT 4.07 x10^6/uL (4.30-5.70); RED CELL DISTRIBUTION WIDTH 13.2 % (11.5-14.5); WHITE BLOOD COUNT 5.3 x10^3/uL (4.0-11.0)
[2020-03-04 06:19] LABS: ALBUMIN 3.3 g/dL (3.4-5.0); ALK PHOS 93 U/L (46-116); ALT (SGPT) 25 U/L (16-63); ANION GAP 5 (6-14); AST (SGOT) 15 U/L (15-37); BLOOD UREA NITROGEN 16 mg/dL (8-26); BUN/CREATININE RATIO 16 (6-20); CALCIUM 8.8 mg/dL (8.5-10.1); CARBON DIOXIDE 31 mmol/L (21-32); CHLORIDE 105 mmol/L (98-107); GFR 73.7; GLUCOSE 99 mg/dL (70-99); POTASSIUM 3.9 mmol/L (3.5-5.1); SODIUM 141 mmol/L (136-145); TOTAL BILIRUBIN 0.3 mg/dL (0.2-1.0); TOTAL PROTEIN 6.5 g/dL (6.4-8.2)
[2020-03-04 06:22] LABS: VAL ACID 43 mcg/mL (50-100)
[2020-03-04 06:24] VITALS: BP 136/81
[2020-03-04] MEDS: METOPROLOL SUCC 24HR ER 25 MG TAB.ER.24H. PO SCH (09:06)
[2020-03-04] MEDS: medroxyPROGESTERone 5 MG TABLET PO SCH (09:07)
[2020-03-04] MEDS: ACETAMINOPHEN 500 MG TABLET PO SCH ×2 (09:07→20:02)
[2020-03-04] MEDS: CALCIUM CARBONATE 500 MG TABLET PO SCH ×3 (09:07→17:24)
[2020-03-04] MEDS: amLODIPine BESYLATE 5 MG TABLET PO SCH (09:07)
[2020-03-04 15:48] VITALS: BP 148/88
[2020-03-04] MEDS: traZODone 50 MG TABLET. PO SCH (20:01)
[2020-03-04] MEDS: DIVALPROEX ER 500 MG TAB.ER.24H PO SCH (20:02)
--- NOTE | 2020-03-04 22:02 | PDOC ---
Exam Note: Jassi Note: Please also refer to the separate dictated note~for this date of service dictated separately.~Patient seen individually. Discussed the patient with Nursing staff reviewed the chart.~Reviewed interim history and current functioning. Reviewed vital signs,~Labs/ Radiology~and current medications noted below. Continue current treatment with the changes noted in the dictated addendum note Assessment: Vital Signs/I&O: Vital Signs Date Time Temp Pulse Resp B/P (MAP) Pulse Ox O2 Delivery O2 Flow Rate FiO2 03/04/20 20:22 98.1 97 03/04/20 15:48 78 18 148/88 (108) 03/02/20 18:06 Room Air I & O 03/03/20 03/03/20 03/04/20 15:00 23:00 07:00 Intake Total 960 ml 760 ml Balance 960 ml 760 ml Labs: Laboratory Tests Test 03/04/20 05:55 White Blood Count 5.3 x10^3/uL (4.0-11.0) Red Blood Count 4.07 x10^6/uL (4.30-5.70) L Hemoglobin 12.9 g/dL (13.0-17.5) L Hematocrit 37.1 % (39.0-53.0) L Mean Corpuscular Volume 91 fL (79-100) Mean Corpuscular Hemoglobin 32 pg (25-35) Mean Corpuscular Hemoglobin Concent 35 g/dL (31-37) Red Cell Distribution Width 13.2 % (11.5-14.5) Platelet Count 294 x10^3/uL (140-400) Neutrophils (%) (Auto) 50 % (31-73) Lymphocytes (%) (Auto) 29 % (24-48) Monocytes (%) (Auto) 15 % (0-9) H Eosinophils (%) (Auto) 5 % (0-3) H Basophils (%) (Auto) 2 % (0-3) Neutrophils # (Auto) 2.6 x10^3uL (1.8-7.7) Lymphocytes # (Auto) 1.5 x10^3/uL (1.0-4.8) Monocytes # (Auto) 0.8 x10^3/uL (0.0-1.1) Eosinophils # (Auto) 0.3 x10^3/uL (0.0-0.7) Basophils # (Auto) 0.1 x10^3/uL (0.0-0.2) Sodium Level 141 mmol/L (136-145) Potassium Level 3.9 mmol/L (3.5-5.1) Chloride Level 105 mmol/L (98-107) Carbon Dioxide Level 31 mmol/L (21-32) Anion Gap 5 (6-14) L Blood Urea Nitrogen 16 mg/dL (8-26) Creatinine 1.0 mg/dL (0.7-1.3) Estimated GFR (Cockcroft-Gault) 73.7 BUN/Creatinine Ratio 16 (6-20) Glucose Level 99 mg/dL (70-99) Calcium Level 8.8 mg/dL (8.5-10.1) Total Bilirubin 0.3 mg/dL (0.2-1.0) Aspartate Amino Transferase (AST) 15 U/L (15-37) Alanine Aminotransferase (ALT) 25 U/L (16-63) Alkaline Phosphatase 93 U/L (46-116) Total Protein 6.5 g/dL (6.4-8.2) Albumin 3.3 g/dL (3.4-5.0) L Albumin/Globulin Ratio 1.0 (1.0-1.7) Valproic Acid Level 43 mcg/mL (50-100) L Valproic Acid Last Dose Date 03/03/2020 Valproic Acid Last Dose Time 2100 Current Medications: Meds: Current Medications Medications (Trade) Dose Ordered Sig/Vicente Route PRN Reason Start Time Stop Time Status Last Admin Dose Admin Divalproex Sodium (Depakote Er) 1,000 mg QHS PO 03/04/20 21:00 03/04/20 20:02 I have reviewed the current psychotropics carefully including drug interactions. Risk benefit ratio favors no change other than as noted in my dictated progress note. Diagnosis: Problems: (1) Major neurocognitive disorder (2) Schizoaffective disorder, bipolar type (3) Impulse control disorder, unspecified (4) Anxiety disorder, unspecified (5) Bipolar disorder, curr episode mixed, severe, with psychotic features (6) Anxiety disorder (7) Frontotemporal dementia with behavioral disturbance (8) Impulse control disorder OBDULIA MOLINA MD Mar 04, 2020 22:02
[2020-03-05 05:29] VITALS: BP 122/67
[2020-03-05] MEDS: METOPROLOL SUCC 24HR ER 25 MG TAB.ER.24H. PO SCH (08:32)
[2020-03-05] MEDS: amLODIPine BESYLATE 5 MG TABLET PO SCH (08:32)
[2020-03-05] MEDS: ACETAMINOPHEN 500 MG TABLET PO SCH ×2 (08:32→20:00)
[2020-03-05] MEDS: CALCIUM CARBONATE 500 MG TABLET PO SCH ×3 (08:32→17:05)
[2020-03-05] MEDS: medroxyPROGESTERone 5 MG TABLET PO SCH (08:32)
--- NOTE | 2020-03-05 10:47 | TX PLAN ---
Interdisciplinary Tx Plan Admission Information Feb 23, 2020 at 10:07 Legal Status (on Admission): Voluntary DPOA/Guardian Name: Adriana Olsen "La" Contact Other Contact Name: Pioneer Beard Other Contact Verified Code Status: Full Code Allergies: Coded Allergies: ramipril (Verified Allergy, Mild, Hives, 02/23/20) HANK Inhibitors (Verified Allergy, Unknown, 02/23/20) rifampin (Verified Allergy, Unknown, 02/23/20) Diagnoses Primary Diagnosis: Dementia with Behavioral Disturbance Reasons for Admission: Aggressive, Agitated, Poor impulse control, Other Problem in Patient's Words: Pt dtr believes that the other resident has been antagonizing pt for some time. But because pt is the one getting "aggressive" and is mobile, he will have to be moved. Additional Admission Comments: According to the intake pt was displaying inappropriate sexual behaviors, increased agitation, threatened another resident "I'll rip your thought out" because the other resident called him a "piece of shit", refusing medications Problems Active Problems: delusional Inactive Problems: Compliant with medications Compliant with cares Compiant with staff direction Compliant with wearing a mask on the unit Participating in group Pt Strengths/Limitations Ability for [place]: Poor Cognitive Functioning/Ability: Fair Communication Skills/Ability: Fair Financial Resources: Fair Insight/Judgement: Poor Intellectual Ability: Fair Physical Health: Poor Social Skills: Fair Stability in Family: Good Stability in School/Work: Poor Verbal Skills: Fair Discharge Criteria Discharge Criteria: Adequate arrangements @DC, Improved behavior, Improved mood/thought Preliminary Discharge Plan Preliminary DC Plan: Placement Needed Special Precautions Fall Risk: Low Initial D/C Plan Referrals to placements will be sent out as pt is not able to return to placement at [facility] Identified Discharge Needs: Referrals for a different level of care Currently Utilized Resources Currently Utilized Resources/P: Primary Care physician Referrals Community Resources: Referrals to a different level of care Identified Problems/Hx/Goals Objectives/Short-Term Goals Short Term Goals: Dec. Aggression, Dec. Outbursts, Medication Stabilization, Promote Coping Skill Short Term Goals in Patient's: N/A Interventions/Frequency Staff Interventions/Frequency&: Psychiatrist to assess pt at least 3x per week Social Work to assess pt at least 2x per week. Nursing to assess behaviors, medications and complete 15 minute checks. Encourage group participation in activities or 1:1 engagement based of Activity Dept assessment. 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 Once the recession hit, he was laid off and did odds and ends jobs. 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 Education: Graduated high school (12th) Community Follow-up Primary Care Physician Referal to psychiatrist/neurologist Community Provider/Family Inpu: I cannot keep moving him. I need someone who can maintain him and his behavior. Treatment Plan Explained Patient/Well Service Floor Worker had this treatment plan explained to him/her as indicated by the signature below and has been given the opportunity to ask questions and make suggestions: Date: Patient/Well Service Floor Worker Signature: Status Update Update Pt is eating 100% and sleeping on average 6.5 hours of sleep. Pt is doing well with the quarantine and wears his mask in the event that he wants to walk the hallway. Pt is calm, compliant with all cares and medications. Pt facility is working on getting a new placement for pt as they do not feel that they are a great fit. [facility] sent a referral to the [facility], who turned pt down as they currently do not have any openings. [facility] will be working with pt family and sending out referrals for placement. CLEMENT LANIER Mar 05, 2020 10:47
[2020-03-05 16:12] VITALS: BP 154/82
[2020-03-05] MEDS: DIVALPROEX ER 500 MG TAB.ER.24H PO SCH (20:00)
[2020-03-05] MEDS: traZODone 50 MG TABLET. PO SCH (20:01)
--- NOTE | 2020-03-05 22:05 | PDOC ---
Exam Note: Jassi Note: Please also refer to the separate dictated note~for this date of service dictated separately.~Patient seen individually. Discussed the patient with Nursing staff reviewed the chart.~Reviewed interim history and current functioning. Reviewed vital signs,~Labs/ Radiology~and current medications noted below. Continue current treatment with the changes noted in the dictated addendum note Assessment: Vital Signs/I&O: Vital Signs Date Time Temp Pulse Resp B/P (MAP) Pulse Ox O2 Delivery O2 Flow Rate FiO2 03/05/20 21:58 98.1 98 03/05/20 16:12 65 18 154/82 (106) 03/05/20 05:29 Room Air I & O 03/04/20 03/04/20 03/05/20 15:00 23:00 07:00 Intake Total 960 ml 840 ml Balance 960 ml 840 ml Current Medications: I have reviewed the current psychotropics carefully including drug interactions. Risk benefit ratio favors no change other than as noted in my dictated progress note. Diagnosis: Problems: (1) Major neurocognitive disorder (2) Schizoaffective disorder, bipolar type (3) Impulse control disorder, unspecified (4) Anxiety disorder, unspecified (5) Bipolar disorder, curr episode mixed, severe, with psychotic features (6) Anxiety disorder (7) Frontotemporal dementia with behavioral disturbance (8) Impulse control disorder OBDULIA MOLINA MD Mar 05, 2020 22:05
[2020-03-06 06:05] VITALS: BP 146/72
--- NOTE | 2020-03-06 07:03 | PDOC ---
Exam Note: Jassi Note: This note is late entry for 03/03/2020 covers elements not covered in my initial note. Subjective: The patient was evaluated on telehealth rounds in the evening of 03/03/2020 with nursing staff. Per Niya HOLLINGSWORTH, he slept 6-1/4 hours previous night. Overall the patient states he is doing well. Review of Systems: No CV, , pulmonary, eye, ENT system symptoms on review. Mental Status Exam: The patient is reasonably oriented. Speech is coherent. Abstraction is fair. Computation is impaired. Language function is intact. Mood and affect has improved, less labile. Laboratory Data: Reviewed. Impression: Bipolar 1 disorder mixed with psychotic features. Impulse control disorder, unspecified. Anxiety disorder unspecified. Plan: No change from initial note. We have increased the Depakote. We will monitor labs level and adjust as indicated. Assessment: Vital Signs/I&O: Vital Signs Date Time Temp Pulse Resp B/P (MAP) Pulse Ox O2 Delivery O2 Flow Rate FiO2 03/06/20 06:05 98.4 73 14 146/72 (96) 98 Room Air I & O 03/05/20 03/05/20 03/06/20 15:00 23:00 07:00 Intake Total 960 ml 920 ml Balance 960 ml 920 ml Current Medications: I have reviewed the current psychotropics carefully including drug interactions. Risk benefit ratio favors no change other than as noted in my dictated progress note. Diagnosis: Problems: (1) Major neurocognitive disorder (2) Schizoaffective disorder, bipolar type (3) Impulse control disorder, unspecified (4) Anxiety disorder, unspecified (5) Bipolar disorder, curr episode mixed, severe, with psychotic features (6) Anxiety disorder (7) Frontotemporal dementia with behavioral disturbance (8) Impulse control disorder OBDULIA MOLINA MD Mar 06, 2020 07:03
--- NOTE | 2020-03-06 07:09 | PDOC ---
Exam Note: Jassi Note: This note is late entry for 03/04/2020 covers elements not covered in my initial note. Subjective: The patient was evaluated in the morning of 03/01/2020 with treatment team meeting with Modesta (social service staff)Niya RN. He slept 7 hours previous night. Appetite is fair. Valproic acid level is 43 and we will increase the Depakote ER from 750 mg h.s. to 1000 mg h.s. Check CBC, CMP, valproic acid level in 3 days. The patient repeated himself spontaneously that he was not going to fall for the tricks the other resident at the skilled nursing does by trying to have the patient react to that patients overtures. He was quite deliberate about saying this. Review of Systems: No CV, , pulmonary, eye, ENT system symptoms on review. Mental Status Exam: The patient is quite verbal, open, pleasant, smiling during the audiovisual visit. Speech is coherent. Abstraction is fair. Computation is impaired. Language function is intact. Mood and affect improved, labile. No suicidal or homicidal ideation. Laboratory Data: Reviewed. Impression: Bipolar 1 disorder mixed with psychotic features. Impulse control disorder, unspecified. Anxiety disorder unspecified. Plan: Valproic acid level is 43 and we will increase the Depakote ER from 750 mg h.s. to 1000 mg h.s. Check CBC, CMP, valproic acid level in 3 days. We will make further adjustments as clinically indicated. Assessment: Vital Signs/I&O: Vital Signs Date Time Temp Pulse Resp B/P (MAP) Pulse Ox O2 Delivery O2 Flow Rate FiO2 03/06/20 06:05 98.4 73 14 146/72 (96) 98 Room Air I & O 03/05/20 03/05/20 03/06/20 15:00 23:00 07:00 Intake Total 960 ml 920 ml Balance 960 ml 920 ml Current Medications: I have reviewed the current psychotropics carefully including drug interactions. Risk benefit ratio favors no change other than as noted in my dictated progress note. Diagnosis: Problems: (1) Major neurocognitive disorder (2) Schizoaffective disorder, bipolar type (3) Impulse control disorder, unspecified (4) Anxiety disorder, unspecified (5) Bipolar disorder, curr episode mixed, severe, with psychotic features (6) Anxiety disorder (7) Frontotemporal dementia with behavioral disturbance (8) Impulse control disorder OBDULIA MOLINA MD Mar 06, 2020 07:09
--- NOTE | 2020-03-06 07:15 | PDOC ---
Exam Note: Jassi Note: This note is late entry for 03/04/2020 covers elements not covered in my initial note. Subjective: The patient was evaluated in the morning of 03/04/2020 with treatment team meeting with Modesta (social service staff), Niya HOLLINGSWORTH. He slept 7 hours previous night. Appetite is fair. Valproic acid level is 43 and we will increase the Depakote ER from 750 mg h.s. to 1000 mg h.s. Check CBC, CMP, valproic acid level in 3 days. The patient repeated himself spontaneously that he was not going to fall for the tricks the other resident at the senior living does by trying to have the patient react to that patients overtures. He was quite deliberate about saying this. Review of Systems: No CV, , pulmonary, eye, ENT system symptoms on review. Mental Status Exam: The patient is quite verbal, open, pleasant, smiling during the audiovisual visit. Speech is coherent. Abstraction is fair. Computation is impaired. Language function is intact. Mood and affect improved, labile. No suicidal or homicidal ideation. Laboratory Data: Reviewed. Impression: Bipolar 1 disorder mixed with psychotic features. Impulse control disorder, unspecified. Anxiety disorder unspecified. Plan: Valproic acid level is 43 and we will increase the Depakote ER from 750 mg h.s. to 1000 mg h.s. Check CBC, CMP, valproic acid level in 3 days. We will make further adjustments as clinically indicated. Assessment: Vital Signs/I&O: Vital Signs Date Time Temp Pulse Resp B/P (MAP) Pulse Ox O2 Delivery O2 Flow Rate FiO2 03/06/20 06:05 98.4 73 14 146/72 (96) 98 Room Air I & O 03/05/20 03/05/20 03/06/20 14:59 22:59 06:59 Intake Total 960 ml 920 ml Balance 960 ml 920 ml Current Medications: I have reviewed the current psychotropics carefully including drug interactions. Risk benefit ratio favors no change other than as noted in my dictated progress note. Diagnosis: Problems: (1) Major neurocognitive disorder (2) Schizoaffective disorder, bipolar type (3) Impulse control disorder, unspecified (4) Anxiety disorder, unspecified (5) Bipolar disorder, curr episode mixed, severe, with psychotic features (6) Anxiety disorder (7) Frontotemporal dementia with behavioral disturbance (8) Impulse control disorder OBDULIA MOLINA MD Mar 06, 2020 07:15
--- NOTE | 2020-03-06 07:20 | PDOC ---
Exam Note: Jassi Note: This note is late entry for 03/05/2020 covers elements not covered in my initial note. Subjective: The patient was evaluated on telehealth rounds in the evening of 03/05/2020 with nursing staff. Per Niya HOLLINGSWORTH, he slept 5-3/4 hours previous night. He was somewhat snarky during the showers previous night with the nursing aid but better during the day today. Review of Systems: No CV, , pulmonary, eye, ENT system symptoms on review. Mental Status Exam: The patient is reasonably oriented during the audiovisual visit. Speech is coherent. Abstraction is fair. Computation is impaired. Language function is intact. Mood and affect lability is improved. Laboratory Data: Reviewed. Impression: Bipolar 1 disorder mixed with psychotic features. Impulse control disorder, unspecified. Anxiety disorder unspecified. Plan: No change from initial note. Check CBC, CMP, valproic acid level in 2 days. Assessment: Vital Signs/I&O: Vital Signs Date Time Temp Pulse Resp B/P (MAP) Pulse Ox O2 Delivery O2 Flow Rate FiO2 03/06/20 06:05 98.4 73 14 146/72 (96) 98 Room Air I & O 03/05/20 03/05/20 03/06/20 14:59 22:59 06:59 Intake Total 960 ml 920 ml Balance 960 ml 920 ml Current Medications: I have reviewed the current psychotropics carefully including drug interactions. Risk benefit ratio favors no change other than as noted in my dictated progress note. Diagnosis: Problems: (1) Major neurocognitive disorder (2) Schizoaffective disorder, bipolar type (3) Impulse control disorder, unspecified (4) Anxiety disorder, unspecified (5) Bipolar disorder, curr episode mixed, severe, with psychotic features (6) Anxiety disorder (7) Frontotemporal dementia with behavioral disturbance (8) Impulse control disorder OBDULIA MOLINA MD Mar 06, 2020 07:20
[2020-03-06] MEDS: medroxyPROGESTERone 5 MG TABLET PO SCH (08:37)
[2020-03-06] MEDS: METOPROLOL SUCC 24HR ER 25 MG TAB.ER.24H. PO SCH (08:38)
[2020-03-06] MEDS: CALCIUM CARBONATE 500 MG TABLET PO SCH ×3 (08:38→17:30)
[2020-03-06] MEDS: ACETAMINOPHEN 500 MG TABLET PO SCH ×2 (08:38→19:41)
[2020-03-06] MEDS: amLODIPine BESYLATE 5 MG TABLET PO SCH (08:38)
[2020-03-06 16:51] VITALS: BP 157/80
[2020-03-06] MEDS: DIVALPROEX ER 500 MG TAB.ER.24H PO SCH (19:41)
[2020-03-06] MEDS: traZODone 50 MG TABLET. PO SCH (19:41)
--- NOTE | 2020-03-06 22:04 | PDOC ---
Exam Note: Jassi Note: Please also refer to the separate dictated note~for this date of service dictated separately.~Patient seen individually. Discussed the patient with Nursing staff reviewed the chart.~Reviewed interim history and current functioning. Reviewed vital signs,~Labs/ Radiology~and current medications noted below. Continue current treatment with the changes noted in the dictated addendum note Assessment: Vital Signs/I&O: Vital Signs Date Time Temp Pulse Resp B/P (MAP) Pulse Ox O2 Delivery O2 Flow Rate FiO2 03/06/20 20:41 98.2 97 03/06/20 16:51 76 157/80 (105) 03/06/20 06:05 14 Room Air I & O 03/05/20 03/05/20 03/06/20 15:00 23:00 07:00 Intake Total 960 ml 920 ml Balance 960 ml 920 ml Current Medications: I have reviewed the current psychotropics carefully including drug interactions. Risk benefit ratio favors no change other than as noted in my dictated progress note. Diagnosis: Problems: (1) Major neurocognitive disorder (2) Schizoaffective disorder, bipolar type (3) Impulse control disorder, unspecified (4) Anxiety disorder, unspecified (5) Bipolar disorder, curr episode mixed, severe, with psychotic features (6) Anxiety disorder (7) Frontotemporal dementia with behavioral disturbance (8) Impulse control disorder OBDULIA MOLINA MD Mar 06, 2020 22:04
[2020-03-07 06:03] VITALS: BP 107/66
[2020-03-07] MEDS: amLODIPine BESYLATE 5 MG TABLET PO SCH (08:43)
[2020-03-07] MEDS: CALCIUM CARBONATE 500 MG TABLET PO SCH ×3 (08:43→17:09)
[2020-03-07] MEDS: medroxyPROGESTERone 5 MG TABLET PO SCH (08:44)
[2020-03-07] MEDS: ACETAMINOPHEN 500 MG TABLET PO SCH ×2 (08:44→20:07)
[2020-03-07] MEDS: METOPROLOL SUCC 24HR ER 25 MG TAB.ER.24H. PO SCH (08:44)
[2020-03-07 09:30] LABS: BASO # 0.1 x10^3/uL (0.0-0.2); BASO % 1 % (0-3); EOS # 0.2 x10^3/uL (0.0-0.7); EOS % 3 % (0-3); HEMATOCRIT 41.4 % (39.0-53.0); HEMOGLOBIN 14.2 g/dL (13.0-17.5); LYMPH # 1.2 x10^3/uL (1.0-4.8); LYMPH % 18 % (24-48); MEAN CORPUSCULAR HEMOGLOBIN 32 pg (25-35); MEAN CORPUSCULAR HGB CONC 34 g/dL (31-37); MEAN CORPUSCULAR VOLUME 92 fL (79-100); MONO # 0.6 x10^3/uL (0.0-1.1); MONO % 9 % (0-9); NEUT # 4.6 x10^3uL (1.8-7.7); NEUT % 70 % (31-73); PLATELET COUNT 350 x10^3/uL (140-400); RED BLOOD COUNT 4.49 x10^6/uL (4.30-5.70); RED CELL DISTRIBUTION WIDTH 13.4 % (11.5-14.5); WHITE BLOOD COUNT 6.7 x10^3/uL (4.0-11.0)
[2020-03-07 09:33] LABS: ALBUMIN 4.1 g/dL (3.4-5.0); ALBUMIN/GLOBULIN RATIO 1.1 (1.0-1.7); ALK PHOS 109 U/L (46-116); ALT (SGPT) 28 U/L (16-63); ANION GAP 9 (6-14); AST (SGOT) 21 U/L (15-37); BLOOD UREA NITROGEN 14 mg/dL (8-26); BUN/CREATININE RATIO 14 (6-20); CALCIUM 9.3 mg/dL (8.5-10.1); CARBON DIOXIDE 29 mmol/L (21-32); CHLORIDE 102 mmol/L (98-107); GFR 73.7; GLUCOSE 139 mg/dL (70-99); SODIUM 140 mmol/L (136-145); TOTAL BILIRUBIN 0.6 mg/dL (0.2-1.0); TOTAL PROTEIN 7.8 g/dL (6.4-8.2)
[2020-03-07 09:42] LABS: VAL ACID 79 mcg/mL (50-100)
[2020-03-07 15:30] VITALS: BP 127/66
[2020-03-07] MEDS: DIVALPROEX ER 500 MG TAB.ER.24H PO SCH (20:06)
[2020-03-07] MEDS: traZODone 50 MG TABLET. PO SCH (20:07)
[2020-03-08 06:22] VITALS: BP 136/86
--- NOTE | 2020-03-08 07:16 | PDOC ---
Exam Note: Jassi Note: This note is late entry for 03/06/2020 covers elements not covered in my initial note. Subjective: The patient was evaluated on telehealth rounds in the evening of 03/06/2020 with Rosalia HOLLINGSWORTH. Per Rosalia HOLLINGSWORTH, he slept 7 hours previous night. I met with him in his room. He has been listening to music from the 70s on the [place], appears to keep himself mentally occupied. We will address what prompted this referral from the intermediate and how he will avoid that specific resident rather than take his zaina and react to him. We will check labs morning of 03/07 for his Depakote, CBC, CMP. Review of Systems: No CV, , pulmonary, eye, ENT system symptoms on review. Mental Status Exam: The patient is reasonably oriented. Speech is coherent. Abstraction is fair. Computation is impaired. Language function is intact. Attention span is short. He is quite animated, verbal, pleasant as I met with him. No suicidal or homicidal ideation. Laboratory Data: Reviewed. Impression: Bipolar 1 disorder mixed with psychotic features. Impulse control disorder, unspecified. Anxiety disorder unspecified. Plan: No change from initial note. Assessment: Vital Signs/I&O: Vital Signs Date Time Temp Pulse Resp B/P (MAP) Pulse Ox O2 Delivery O2 Flow Rate FiO2 03/08/20 06:22 98.7 60 18 136/86 (103) 96 03/07/20 15:30 Room Air I & O 03/07/20 03/07/20 03/08/20 14:59 22:59 06:59 Intake Total 1080 ml 410 ml Balance 1080 ml 410 ml Labs: Laboratory Tests Test 03/07/20 08:46 White Blood Count 6.7 x10^3/uL (4.0-11.0) Red Blood Count 4.49 x10^6/uL (4.30-5.70) Hemoglobin 14.2 g/dL (13.0-17.5) Hematocrit 41.4 % (39.0-53.0) Mean Corpuscular Volume 92 fL (79-100) Mean Corpuscular Hemoglobin 32 pg (25-35) Mean Corpuscular Hemoglobin Concent 34 g/dL (31-37) Red Cell Distribution Width 13.4 % (11.5-14.5) Platelet Count 350 x10^3/uL (140-400) Neutrophils (%) (Auto) 70 % (31-73) Lymphocytes (%) (Auto) 18 % (24-48) L Monocytes (%) (Auto) 9 % (0-9) Eosinophils (%) (Auto) 3 % (0-3) Basophils (%) (Auto) 1 % (0-3) Neutrophils # (Auto) 4.6 x10^3uL (1.8-7.7) Lymphocytes # (Auto) 1.2 x10^3/uL (1.0-4.8) Monocytes # (Auto) 0.6 x10^3/uL (0.0-1.1) Eosinophils # (Auto) 0.2 x10^3/uL (0.0-0.7) Basophils # (Auto) 0.1 x10^3/uL (0.0-0.2) Sodium Level 140 mmol/L (136-145) Potassium Level 4.0 mmol/L (3.5-5.1) Chloride Level 102 mmol/L (98-107) Carbon Dioxide Level 29 mmol/L (21-32) Anion Gap 9 (6-14) Blood Urea Nitrogen 14 mg/dL (8-26) Creatinine 1.0 mg/dL (0.7-1.3) Estimated GFR (Cockcroft-Gault) 73.7 BUN/Creatinine Ratio 14 (6-20) Glucose Level 139 mg/dL (70-99) H Calcium Level 9.3 mg/dL (8.5-10.1) Total Bilirubin 0.6 mg/dL (0.2-1.0) Aspartate Amino Transferase (AST) 21 U/L (15-37) Alanine Aminotransferase (ALT) 28 U/L (16-63) Alkaline Phosphatase 109 U/L (46-116) Total Protein 7.8 g/dL (6.4-8.2) Albumin 4.1 g/dL (3.4-5.0) Albumin/Globulin Ratio 1.1 (1.0-1.7) Valproic Acid Level 79 mcg/mL (50-100) Valproic Acid Last Dose Date 03/06/20 Valproic Acid Last Dose Time 2100 Current Medications: I have reviewed the current psychotropics carefully including drug interactions. Risk benefit ratio favors no change other than as noted in my dictated progress note. Diagnosis: Problems: (1) Major neurocognitive disorder (2) Schizoaffective disorder, bipolar type (3) Impulse control disorder, unspecified (4) Anxiety disorder, unspecified (5) Bipolar disorder, curr episode mixed, severe, with psychotic features (6) Anxiety disorder (7) Frontotemporal dementia with behavioral disturbance (8) Impulse control disorder OBDULIA MOLINA MD Mar 08, 2020 07:16
--- NOTE | 2020-03-08 07:17 | PDOC ---
Exam Note: Jassi Note: This is a late entry for DOS 03/07/20. Please also refer to the separate dictated note~for this date of service dictated separately.~Patient seen individually. Discussed the patient with Nursing staff reviewed the chart.~Reviewed interim history and current functioning. Reviewed vital signs,~Labs/ Radiology~and current medications noted below. Continue current treatment with the changes noted in the dictated addendum note Assessment: Vital Signs/I&O: Vital Signs Date Time Temp Pulse Resp B/P (MAP) Pulse Ox O2 Delivery O2 Flow Rate FiO2 03/08/20 06:22 98.7 60 18 136/86 (103) 96 03/07/20 15:30 Room Air I & O 03/07/20 03/07/20 03/08/20 14:59 22:59 06:59 Intake Total 1080 ml 410 ml Balance 1080 ml 410 ml Labs: Laboratory Tests Test 03/07/20 08:46 White Blood Count 6.7 x10^3/uL (4.0-11.0) Red Blood Count 4.49 x10^6/uL (4.30-5.70) Hemoglobin 14.2 g/dL (13.0-17.5) Hematocrit 41.4 % (39.0-53.0) Mean Corpuscular Volume 92 fL (79-100) Mean Corpuscular Hemoglobin 32 pg (25-35) Mean Corpuscular Hemoglobin Concent 34 g/dL (31-37) Red Cell Distribution Width 13.4 % (11.5-14.5) Platelet Count 350 x10^3/uL (140-400) Neutrophils (%) (Auto) 70 % (31-73) Lymphocytes (%) (Auto) 18 % (24-48) L Monocytes (%) (Auto) 9 % (0-9) Eosinophils (%) (Auto) 3 % (0-3) Basophils (%) (Auto) 1 % (0-3) Neutrophils # (Auto) 4.6 x10^3uL (1.8-7.7) Lymphocytes # (Auto) 1.2 x10^3/uL (1.0-4.8) Monocytes # (Auto) 0.6 x10^3/uL (0.0-1.1) Eosinophils # (Auto) 0.2 x10^3/uL (0.0-0.7) Basophils # (Auto) 0.1 x10^3/uL (0.0-0.2) Sodium Level 140 mmol/L (136-145) Potassium Level 4.0 mmol/L (3.5-5.1) Chloride Level 102 mmol/L (98-107) Carbon Dioxide Level 29 mmol/L (21-32) Anion Gap 9 (6-14) Blood Urea Nitrogen 14 mg/dL (8-26) Creatinine 1.0 mg/dL (0.7-1.3) Estimated GFR (Cockcroft-Gault) 73.7 BUN/Creatinine Ratio 14 (6-20) Glucose Level 139 mg/dL (70-99) H Calcium Level 9.3 mg/dL (8.5-10.1) Total Bilirubin 0.6 mg/dL (0.2-1.0) Aspartate Amino Transferase (AST) 21 U/L (15-37) Alanine Aminotransferase (ALT) 28 U/L (16-63) Alkaline Phosphatase 109 U/L (46-116) Total Protein 7.8 g/dL (6.4-8.2) Albumin 4.1 g/dL (3.4-5.0) Albumin/Globulin Ratio 1.1 (1.0-1.7) Valproic Acid Level 79 mcg/mL (50-100) Valproic Acid Last Dose Date 03/06/20 Valproic Acid Last Dose Time 2100 Current Medications: I have reviewed the current psychotropics carefully including drug interactions. Risk benefit ratio favors no change other than as noted in my dictated progress note. Diagnosis: Problems: (1) Major neurocognitive disorder (2) Schizoaffective disorder, bipolar type (3) Impulse control disorder, unspecified (4) Anxiety disorder, unspecified (5) Bipolar disorder, curr episode mixed, severe, with psychotic features (6) Anxiety disorder (7) Frontotemporal dementia with behavioral disturbance (8) Impulse control disorder OBDULIA MOLINA MD Mar 08, 2020 07:17
[2020-03-08] MEDS: CALCIUM CARBONATE 500 MG TABLET PO SCH ×3 (09:05→17:46)
[2020-03-08] MEDS: ACETAMINOPHEN 500 MG TABLET PO SCH ×2 (09:05→19:53)
[2020-03-08] MEDS: METOPROLOL SUCC 24HR ER 25 MG TAB.ER.24H. PO SCH (09:05)
[2020-03-08] MEDS: medroxyPROGESTERone 5 MG TABLET PO SCH (09:05)
[2020-03-08] MEDS: amLODIPine BESYLATE 5 MG TABLET PO SCH (09:06)
[2020-03-08 15:35] VITALS: BP 163/77
[2020-03-08] MEDS: DIVALPROEX ER 500 MG TAB.ER.24H PO SCH (19:54)
[2020-03-08] MEDS: traZODone 50 MG TABLET. PO SCH (19:55)
--- NOTE | 2020-03-08 21:57 | PDOC ---
Exam Note: Jassi Note: Please also refer to the separate dictated note~for this date of service dictated separately.~Patient seen individually. Discussed the patient with Nursing staff reviewed the chart.~Reviewed interim history and current functioning. Reviewed vital signs,~Labs/ Radiology~and current medications noted below. Continue current treatment with the changes noted in the dictated addendum note Assessment: Vital Signs/I&O: Vital Signs Date Time Temp Pulse Resp B/P (MAP) Pulse Ox O2 Delivery O2 Flow Rate FiO2 03/08/20 19:57 98.0 03/08/20 15:35 65 18 163/77 (105) 97 03/07/20 15:30 Room Air I & O 03/07/20 03/07/20 03/08/20 15:00 23:00 07:00 Intake Total 1080 ml 410 ml Balance 1080 ml 410 ml Current Medications: I have reviewed the current psychotropics carefully including drug interactions. Risk benefit ratio favors no change other than as noted in my dictated progress note. Diagnosis: Problems: (1) Major neurocognitive disorder (2) Schizoaffective disorder, bipolar type (3) Impulse control disorder, unspecified (4) Anxiety disorder, unspecified (5) Bipolar disorder, curr episode mixed, severe, with psychotic features (6) Anxiety disorder (7) Frontotemporal dementia with behavioral disturbance (8) Impulse control disorder OBDULIA MOLINA MD Mar 08, 2020 21:57
[2020-03-09 06:06] VITALS: BP 155/80
[2020-03-09] MEDS: CALCIUM CARBONATE 500 MG TABLET PO SCH ×3 (09:07→17:08)
[2020-03-09] MEDS: amLODIPine BESYLATE 5 MG TABLET PO SCH (09:07)
[2020-03-09] MEDS: medroxyPROGESTERone 5 MG TABLET PO SCH (09:07)
[2020-03-09] MEDS: METOPROLOL SUCC 24HR ER 25 MG TAB.ER.24H. PO SCH (09:07)
[2020-03-09] MEDS: ACETAMINOPHEN 500 MG TABLET PO SCH ×2 (09:07→20:39)
[2020-03-09 15:24] VITALS: BP 126/72
[2020-03-09] MEDS: traZODone 50 MG TABLET. PO SCH (20:38)
[2020-03-09] MEDS: DIVALPROEX ER 500 MG TAB.ER.24H PO SCH (20:39)
--- NOTE | 2020-03-09 22:01 | PDOC ---
Exam Note: Jassi Note: Please also refer to the separate dictated note~for this date of service dictated separately.~Patient seen individually. Discussed the patient with Nursing staff reviewed the chart.~Reviewed interim history and current functioning. Reviewed vital signs,~Labs/ Radiology~and current medications noted below. Continue current treatment with the changes noted in the dictated addendum note Assessment: Vital Signs/I&O: Vital Signs Date Time Temp Pulse Resp B/P (MAP) Pulse Ox O2 Delivery O2 Flow Rate FiO2 03/09/20 19:45 97.7 94 03/09/20 15:24 61 16 126/72 (90) 03/09/20 06:06 Room Air I & O 03/08/20 03/08/20 03/09/20 15:00 23:00 07:00 Intake Total 720 ml 840 ml Balance 720 ml 840 ml Current Medications: I have reviewed the current psychotropics carefully including drug interactions. Risk benefit ratio favors no change other than as noted in my dictated progress note. Diagnosis: Problems: (1) Major neurocognitive disorder (2) Schizoaffective disorder, bipolar type (3) Impulse control disorder, unspecified (4) Anxiety disorder, unspecified (5) Bipolar disorder, curr episode mixed, severe, with psychotic features (6) Anxiety disorder (7) Frontotemporal dementia with behavioral disturbance (8) Impulse control disorder OBDULIA MOLINA MD Mar 09, 2020 22:00
[2020-03-10 06:31] VITALS: BP 130/82
--- NOTE | 2020-03-10 06:56 | PDOC ---
Exam Note: Jassi Note: This note is late entry for 03/07/2020 covers elements not covered in my initial note. Subjective: The patient was evaluated on telehealth rounds in the evening of 03/07/2020 with nursing staff. Per Santa HOLLINGSWORTH, his valproic acid level is 79 therapeutic. He slept 7-1/2 hours previous night. He remains somewhat obsessive, states he cannot shave himself, wants assistance for this. Otherwise, oriented, listens to music from the 70s. Review of Systems: No CV, , pulmonary, eye, ENT system symptoms on review. Mental Status Exam: The patient is reasonably oriented. Speech is coherent. Abstraction is fair. Computation is impaired. Language function is intact. Attention span is short. No suicidal or homicidal ideation. Laboratory Data: Reviewed. Impression: Bipolar 1 disorder mixed with psychotic features. Impulse control disorder, unspecified. Anxiety disorder unspecified. Plan: No change from initial note. Assessment: Vital Signs/I&O: Vital Signs Date Time Temp Pulse Resp B/P (MAP) Pulse Ox O2 Delivery O2 Flow Rate FiO2 03/10/20 06:31 98.2 76 20 130/82 (98) 98 Room Air I & O 03/09/20 03/09/20 03/10/20 15:00 23:00 07:00 Intake Total 840 ml 960 ml Balance 840 ml 960 ml Current Medications: I have reviewed the current psychotropics carefully including drug interactions. Risk benefit ratio favors no change other than as noted in my dictated progress note. Diagnosis: Problems: (1) Major neurocognitive disorder (2) Schizoaffective disorder, bipolar type (3) Impulse control disorder, unspecified (4) Anxiety disorder, unspecified (5) Bipolar disorder, curr episode mixed, severe, with psychotic features (6) Anxiety disorder (7) Frontotemporal dementia with behavioral disturbance (8) Impulse control disorder OBDULIA MOLINA MD Mar 10, 2020 06:56
--- NOTE | 2020-03-10 07:09 | PDOC ---
Exam Note: Jassi Note: This note is late entry for 03/08/2020 covers elements not covered in my initial note. Subjective: The patient was evaluated on telehealth rounds in the evening of 03/08/2020 with Anette HOLLINGSWORTH. Per Vel HOLLINGSWORTH, he slept 7-1/4 hours previous night. He remains quite oriented, very pleasant, appropriate as I met with him individually. He made it a point to tell me that which time I am going to react to other patient at the residential and not take his zaina. He seems to be ruminating about this which perhaps is reasonable given the circumstances prompting admission. Review of Systems: No CV, , pulmonary, eye, ENT system symptoms on review. Mental Status Exam: The patient is reasonably oriented. Speech is coherent. Abstraction is fair. Computation is impaired. Language function is intact. Attention span is short. No suicidal or homicidal ideation. Laboratory Data: Reviewed. Impression: Bipolar 1 disorder mixed with psychotic features. Impulse control disorder, unspecified. Anxiety disorder unspecified. Plan: No change from initial note. Assessment: Vital Signs/I&O: Vital Signs Date Time Temp Pulse Resp B/P (MAP) Pulse Ox O2 Delivery O2 Flow Rate FiO2 03/10/20 06:31 98.2 76 20 130/82 (98) 98 Room Air I & O 03/09/20 03/09/20 03/10/20 15:00 23:00 07:00 Intake Total 840 ml 960 ml Balance 840 ml 960 ml Current Medications: I have reviewed the current psychotropics carefully including drug interactions. Risk benefit ratio favors no change other than as noted in my dictated progress note. Diagnosis: Problems: (1) Major neurocognitive disorder (2) Schizoaffective disorder, bipolar type (3) Impulse control disorder, unspecified (4) Anxiety disorder, unspecified (5) Bipolar disorder, curr episode mixed, severe, with psychotic features (6) Anxiety disorder (7) Frontotemporal dementia with behavioral disturbance (8) Impulse control disorder OBDULIA MOLINA MD Mar 10, 2020 07:09
--- NOTE | 2020-03-10 07:22 | PDOC ---
Exam Note: Jassi Note: This note is late entry for 03/09/2020 covers elements not covered in my initial note. Subjective: The patient was evaluated on telehealth rounds in the evening of 03/09/2020 with Anette HOLLINGSWORTH. Per Niya HOLLINGSWORTH, he slept 6-1/4 hours previous night. Per nursing report last night he was hoarding spoons in his room and we addressed this. He was then quite anxious, paranoid, obsessive feeling one of the other patients on the unit had COVID-19 infection. In fact there is no evidence of this. I addressed this with him, he was understanding. Review of Systems: No CV, , pulmonary, eye, ENT system symptoms on review. Mental Status Exam: The patient is reasonably oriented. Speech is coherent. Abstraction is fair. Computation is impaired. Language function is intact. Attention span is short. No suicidal or homicidal ideation. Laboratory Data: Reviewed. Impression: Bipolar 1 disorder mixed with psychotic features. Impulse control disorder, unspecified. Anxiety disorder unspecified. Plan: No change from initial note. Assessment: Vital Signs/I&O: Vital Signs Date Time Temp Pulse Resp B/P (MAP) Pulse Ox O2 Delivery O2 Flow Rate FiO2 03/10/20 06:31 98.2 76 20 130/82 (98) 98 Room Air I & O 03/09/20 03/09/20 03/10/20 15:00 23:00 07:00 Intake Total 840 ml 960 ml Balance 840 ml 960 ml Current Medications: I have reviewed the current psychotropics carefully including drug interactions. Risk benefit ratio favors no change other than as noted in my dictated progress note. Diagnosis: Problems: (1) Major neurocognitive disorder (2) Schizoaffective disorder, bipolar type (3) Impulse control disorder, unspecified (4) Anxiety disorder, unspecified (5) Bipolar disorder, curr episode mixed, severe, with psychotic features (6) Anxiety disorder (7) Frontotemporal dementia with behavioral disturbance (8) Impulse control disorder OBDULIA MOLINA MD Mar 10, 2020 07:22
[2020-03-10] MEDS: CALCIUM CARBONATE 500 MG TABLET PO SCH ×3 (08:44→17:05)
[2020-03-10] MEDS: METOPROLOL SUCC 24HR ER 25 MG TAB.ER.24H. PO SCH (08:44)
[2020-03-10] MEDS: amLODIPine BESYLATE 5 MG TABLET PO SCH (08:44)
[2020-03-10] MEDS: medroxyPROGESTERone 5 MG TABLET PO SCH (08:44)
[2020-03-10] MEDS: ACETAMINOPHEN 500 MG TABLET PO SCH ×2 (08:44→19:37)
[2020-03-10] MEDS: ACETAMINOPHEN 325 MG TABLET PO PRN (14:56)
[2020-03-10 15:28] VITALS: BP 103/65
[2020-03-10] MEDS: DIVALPROEX ER 500 MG TAB.ER.24H PO SCH (19:38)
[2020-03-10] MEDS: traZODone 50 MG TABLET. PO SCH (19:38)
--- NOTE | 2020-03-10 22:01 | PDOC ---
Exam Note: Jassi Note: Please also refer to the separate dictated note~for this date of service dictated separately.~Patient seen individually. Discussed the patient with Nursing staff reviewed the chart.~Reviewed interim history and current functioning. Reviewed vital signs,~Labs/ Radiology~and current medications noted below. Continue current treatment with the changes noted in the dictated addendum note Assessment: Vital Signs/I&O: Vital Signs Date Time Temp Pulse Resp B/P (MAP) Pulse Ox O2 Delivery O2 Flow Rate FiO2 03/10/20 20:34 98.5 96 03/10/20 15:28 63 16 103/65 (78) 03/10/20 06:31 Room Air I & O 03/09/20 03/09/20 03/10/20 15:00 23:00 07:00 Intake Total 840 ml 960 ml Balance 840 ml 960 ml Current Medications: I have reviewed the current psychotropics carefully including drug interactions. Risk benefit ratio favors no change other than as noted in my dictated progress note. Diagnosis: Problems: (1) Major neurocognitive disorder (2) Schizoaffective disorder, bipolar type (3) Impulse control disorder, unspecified (4) Anxiety disorder, unspecified (5) Bipolar disorder, curr episode mixed, severe, with psychotic features (6) Anxiety disorder (7) Frontotemporal dementia with behavioral disturbance (8) Impulse control disorder OBDULIA MOLINA MD Mar 10, 2020 22:01
[2020-03-11 05:03] VITALS: BP 130/84
[2020-03-11] MEDS: CALCIUM CARBONATE 500 MG TABLET PO SCH ×3 (08:20→17:01)
[2020-03-11] MEDS: amLODIPine BESYLATE 5 MG TABLET PO SCH (08:20)
[2020-03-11] MEDS: METOPROLOL SUCC 24HR ER 25 MG TAB.ER.24H. PO SCH (08:20)
[2020-03-11] MEDS: medroxyPROGESTERone 5 MG TABLET PO SCH (08:20)
[2020-03-11] MEDS: ACETAMINOPHEN 500 MG TABLET PO SCH ×2 (08:27→20:03)
[2020-03-11 15:19] VITALS: BP 129/78
[2020-03-11] MEDS: ACETAMINOPHEN 325 MG TABLET PO PRN (15:21)
[2020-03-11] MEDS: DIVALPROEX ER 500 MG TAB.ER.24H PO SCH (20:03)
[2020-03-11] MEDS: traZODone 50 MG TABLET. PO SCH (20:03)
--- NOTE | 2020-03-11 21:59 | PDOC ---
Exam Note: Jassi Note: Please also refer to the separate dictated note~for this date of service dictated separately.~Patient seen individually. Discussed the patient with Nursing staff reviewed the chart.~Reviewed interim history and current functioning. Reviewed vital signs,~Labs/ Radiology~and current medications noted below. Continue current treatment with the changes noted in the dictated addendum note Assessment: Vital Signs/I&O: Vital Signs Date Time Temp Pulse Resp B/P (MAP) Pulse Ox O2 Delivery O2 Flow Rate FiO2 03/11/20 20:27 98.2 99 03/11/20 15:19 83 16 129/78 (95) Room Air I & O 03/10/20 03/10/20 03/11/20 15:00 23:00 07:00 Intake Total 420 ml 480 ml Balance 420 ml 480 ml Current Medications: I have reviewed the current psychotropics carefully including drug interactions. Risk benefit ratio favors no change other than as noted in my dictated progress note. Diagnosis: Problems: (1) Major neurocognitive disorder (2) Schizoaffective disorder, bipolar type (3) Impulse control disorder, unspecified (4) Anxiety disorder, unspecified (5) Bipolar disorder, curr episode mixed, severe, with psychotic features (6) Anxiety disorder (7) Frontotemporal dementia with behavioral disturbance (8) Impulse control disorder OBDULIA MOLINA MD Mar 11, 2020 21:59
[2020-03-12 05:53] VITALS: BP 123/72
--- NOTE | 2020-03-12 07:11 | PDOC ---
Exam Note: Jassi Note: This note is late entry for 03/10/2020 covers elements not covered in my initial note. Subjective: The patient was evaluated on telehealth rounds in the evening of 03/10/2020 with nursing staff. Per Niya HOLLINGSWORTH, he slept 5-3/4 hours previous night. He has been appropriate, trying to be helpful to one of the other female patients on the unit, trying to go into her room but easily redirected when staff intervened. Review of Systems: No CV, , pulmonary, eye, ENT system symptoms on review. Mental Status Exam: Reasonably oriented. Speech is coherent, verbal, interactive, repeatedly stating how he will avoid any conflicts with other resident at the care home that prompted this admission and we processed this. No suicidal or homicidal ideation. Laboratory Data: Reviewed. Impression: Bipolar 1 disorder mixed with psychotic features. Impulse control disorder, unspecified. Anxiety disorder unspecified. Plan: Continue psychotropics from initial note. Assessment: Vital Signs/I&O: Vital Signs Date Time Temp Pulse Resp B/P (MAP) Pulse Ox O2 Delivery O2 Flow Rate FiO2 03/12/20 05:53 98.1 64 18 123/72 (89) 97 03/11/20 15:19 Room Air I & O 03/11/20 03/11/20 03/12/20 15:00 23:00 07:00 Intake Total 600 ml 360 ml Balance 600 ml 360 ml Current Medications: I have reviewed the current psychotropics carefully including drug interactions. Risk benefit ratio favors no change other than as noted in my dictated progress note. Diagnosis: Problems: (1) Major neurocognitive disorder (2) Schizoaffective disorder, bipolar type (3) Impulse control disorder, unspecified (4) Anxiety disorder, unspecified (5) Bipolar disorder, curr episode mixed, severe, with psychotic features (6) Anxiety disorder (7) Frontotemporal dementia with behavioral disturbance (8) Impulse control disorder OBDULIA MOLINA MD Mar 12, 2020 07:11
--- NOTE | 2020-03-12 07:21 | PDOC ---
Exam Note: Jassi Note: This note is late entry for 03/11/2020 covers elements not covered in my initial note. Subjective: The patient was evaluated in the morning of 03/11/2020 with treatment team meeting with Modesta (social service staff) and Reggie HOLLINGSWORTH and also was evaluated on telehealth rounds in the evening of 03/11/2020 with Mary adam RN, he slept 6-1/2 hours previous night. Appetite is fair. Review of Systems: No CV, , pulmonary, eye, ENT system symptoms on review. Mental Status Exam: The patient is reasonably oriented. Speech is coherent, interactive. Abstraction is fair. Computation is impaired. Language function is intact. Attention span is short. No suicidal or homicidal ideation. Laboratory Data: Reviewed. Impression: Bipolar 1 disorder mixed with psychotic features. Impulse control disorder, unspecified. Anxiety disorder unspecified. Plan: No change from initial note. Assessment: Vital Signs/I&O: Vital Signs Date Time Temp Pulse Resp B/P (MAP) Pulse Ox O2 Delivery O2 Flow Rate FiO2 03/12/20 05:53 98.1 64 18 123/72 (89) 97 03/11/20 15:19 Room Air I & O 03/11/20 03/11/20 03/12/20 15:00 23:00 07:00 Intake Total 600 ml 360 ml Balance 600 ml 360 ml Current Medications: I have reviewed the current psychotropics carefully including drug interactions. Risk benefit ratio favors no change other than as noted in my dictated progress note. Diagnosis: Problems: (1) Major neurocognitive disorder (2) Schizoaffective disorder, bipolar type (3) Impulse control disorder, unspecified (4) Anxiety disorder, unspecified (5) Bipolar disorder, curr episode mixed, severe, with psychotic features (6) Anxiety disorder (7) Frontotemporal dementia with behavioral disturbance (8) Impulse control disorder OBDULIA MOLINA MD Mar 12, 2020 07:21
[2020-03-12] MEDS: METOPROLOL SUCC 24HR ER 25 MG TAB.ER.24H. PO SCH (09:21)
[2020-03-12] MEDS: medroxyPROGESTERone 5 MG TABLET PO SCH (09:21)
[2020-03-12] MEDS: ACETAMINOPHEN 500 MG TABLET PO SCH ×2 (09:21→20:03)
[2020-03-12] MEDS: amLODIPine BESYLATE 5 MG TABLET PO SCH (09:22)
[2020-03-12] MEDS: CALCIUM CARBONATE 500 MG TABLET PO SCH ×3 (09:22→17:06)
[2020-03-12] MEDS: CYCLOBENZAPRINE 10 MG TABLET. PO PRN (14:15)
[2020-03-12 16:07] VITALS: BP 128/76
[2020-03-12] MEDS: traZODone 50 MG TABLET. PO SCH (20:03)
[2020-03-12] MEDS: DIVALPROEX ER 500 MG TAB.ER.24H PO SCH (20:03)
--- NOTE | 2020-03-12 21:59 | PDOC ---
Exam Note: Jassi Note: Please also refer to the separate dictated note~for this date of service dictated separately.~Patient seen individually. Discussed the patient with Nursing staff reviewed the chart.~Reviewed interim history and current functioning. Reviewed vital signs,~Labs/ Radiology~and current medications noted below. Continue current treatment with the changes noted in the dictated addendum note Assessment: Vital Signs/I&O: Vital Signs Date Time Temp Pulse Resp B/P (MAP) Pulse Ox O2 Delivery O2 Flow Rate FiO2 03/12/20 20:33 99.0 95 03/12/20 16:07 63 16 128/76 (93) 03/11/20 15:19 Room Air I & O 03/11/20 03/11/20 03/12/20 14:59 22:59 06:59 Intake Total 600 ml 360 ml Balance 600 ml 360 ml Current Medications: I have reviewed the current psychotropics carefully including drug interactions. Risk benefit ratio favors no change other than as noted in my dictated progress note. Diagnosis: Problems: (1) Major neurocognitive disorder (2) Schizoaffective disorder, bipolar type (3) Impulse control disorder, unspecified (4) Anxiety disorder, unspecified (5) Bipolar disorder, curr episode mixed, severe, with psychotic features (6) Anxiety disorder (7) Frontotemporal dementia with behavioral disturbance (8) Impulse control disorder OBDULIA MOLINA MD Mar 12, 2020 21:59
[2020-03-13 05:57] VITALS: BP 118/65
[2020-03-13] MEDS: METOPROLOL SUCC 24HR ER 25 MG TAB.ER.24H. PO SCH ×2 (09:29→09:34)
[2020-03-13] MEDS: amLODIPine BESYLATE 5 MG TABLET PO SCH (09:31)
[2020-03-13] MEDS: medroxyPROGESTERone 5 MG TABLET PO SCH (09:31)
[2020-03-13] MEDS: ACETAMINOPHEN 500 MG TABLET PO SCH ×2 (09:31→20:00)
[2020-03-13] MEDS: CALCIUM CARBONATE 500 MG TABLET PO SCH ×3 (09:31→17:05)
[2020-03-13 09:59] LABS: BASO # 0.1 x10^3/uL (0.0-0.2); BASO % 1 % (0-3); EOS # 0.2 x10^3/uL (0.0-0.7); EOS % 3 % (0-3); HEMATOCRIT 41.3 % (39.0-53.0); HEMOGLOBIN 14.5 g/dL (13.0-17.5); LYMPH # 1.3 x10^3/uL (1.0-4.8); LYMPH % 20 % (24-48); MEAN CORPUSCULAR HEMOGLOBIN 32 pg (25-35); MEAN CORPUSCULAR HGB CONC 35 g/dL (31-37); MEAN CORPUSCULAR VOLUME 92 fL (79-100); MONO % 15 % (0-9); NEUT # 4.1 x10^3uL (1.8-7.7); NEUT % 61 % (31-73); PLATELET COUNT 345 x10^3/uL (140-400); RED CELL DISTRIBUTION WIDTH 13.1 % (11.5-14.5); WHITE BLOOD COUNT 6.7 x10^3/uL (4.0-11.0)
[2020-03-13 10:14] LABS: ALBUMIN 3.9 g/dL (3.4-5.0); ALBUMIN/GLOBULIN RATIO 1.1 (1.0-1.7); CREATININE 1.1 mg/dL (0.7-1.3); POTASSIUM 3.9 mmol/L (3.5-5.1); TOTAL BILIRUBIN 0.4 mg/dL (0.2-1.0); TOTAL PROTEIN 7.5 g/dL (6.4-8.2)
[2020-03-13] MEDS: ACETAMINOPHEN 325 MG TABLET PO PRN (15:15)
[2020-03-13 16:04] VITALS: BP 126/77
[2020-03-13] MEDS: traZODone 50 MG TABLET. PO SCH (19:59)
[2020-03-13] MEDS: DIVALPROEX ER 500 MG TAB.ER.24H PO SCH (20:00)
--- NOTE | 2020-03-13 22:01 | PDOC ---
Exam Note: Jassi Note: Please also refer to the separate dictated note~for this date of service dictated separately.~Patient seen individually. Discussed the patient with Nursing staff reviewed the chart.~Reviewed interim history and current functioning. Reviewed vital signs,~Labs/ Radiology~and current medications noted below. Continue current treatment with the changes noted in the dictated addendum note Assessment: Vital Signs/I&O: Vital Signs Date Time Temp Pulse Resp B/P (MAP) Pulse Ox O2 Delivery O2 Flow Rate FiO2 03/13/20 20:04 97.9 03/13/20 16:04 86 18 126/77 (93) 96 03/13/20 08:44 Room Air I & O 03/12/20 03/12/20 03/13/20 15:00 23:00 07:00 Intake Total 1440 ml 840 ml Balance 1440 ml 840 ml Labs: Laboratory Tests Test 03/13/20 09:40 White Blood Count 6.7 x10^3/uL (4.0-11.0) Red Blood Count 4.50 x10^6/uL (4.30-5.70) Hemoglobin 14.5 g/dL (13.0-17.5) Hematocrit 41.3 % (39.0-53.0) Mean Corpuscular Volume 92 fL (79-100) Mean Corpuscular Hemoglobin 32 pg (25-35) Mean Corpuscular Hemoglobin Concent 35 g/dL (31-37) Red Cell Distribution Width 13.1 % (11.5-14.5) Platelet Count 345 x10^3/uL (140-400) Neutrophils (%) (Auto) 61 % (31-73) Lymphocytes (%) (Auto) 20 % (24-48) L Monocytes (%) (Auto) 15 % (0-9) H Eosinophils (%) (Auto) 3 % (0-3) Basophils (%) (Auto) 1 % (0-3) Neutrophils # (Auto) 4.1 x10^3uL (1.8-7.7) Lymphocytes # (Auto) 1.3 x10^3/uL (1.0-4.8) Monocytes # (Auto) 1.0 x10^3/uL (0.0-1.1) Eosinophils # (Auto) 0.2 x10^3/uL (0.0-0.7) Basophils # (Auto) 0.1 x10^3/uL (0.0-0.2) Sodium Level 140 mmol/L (136-145) Potassium Level 3.9 mmol/L (3.5-5.1) Chloride Level 103 mmol/L (98-107) Carbon Dioxide Level 28 mmol/L (21-32) Anion Gap 9 (6-14) Blood Urea Nitrogen 13 mg/dL (8-26) Creatinine 1.1 mg/dL (0.7-1.3) Estimated GFR (Cockcroft-Gault) 66.0 BUN/Creatinine Ratio 12 (6-20) Glucose Level 78 mg/dL (70-99) Calcium Level 9.0 mg/dL (8.5-10.1) Total Bilirubin 0.4 mg/dL (0.2-1.0) Aspartate Amino Transferase (AST) 24 U/L (15-37) Alanine Aminotransferase (ALT) 30 U/L (16-63) Alkaline Phosphatase 98 U/L (46-116) Total Protein 7.5 g/dL (6.4-8.2) Albumin 3.9 g/dL (3.4-5.0) Albumin/Globulin Ratio 1.1 (1.0-1.7) Current Medications: I have reviewed the current psychotropics carefully including drug interactions. Risk benefit ratio favors no change other than as noted in my dictated progress note. Diagnosis: Problems: (1) Major neurocognitive disorder (2) Schizoaffective disorder, bipolar type (3) Impulse control disorder, unspecified (4) Anxiety disorder, unspecified (5) Bipolar disorder, curr episode mixed, severe, with psychotic features (6) Anxiety disorder (7) Frontotemporal dementia with behavioral disturbance (8) Impulse control disorder OBDULIA MOLINA MD Mar 13, 2020 22:01
[2020-03-14 06:07] VITALS: BP 134/74
--- NOTE | 2020-03-14 07:00 | PDOC ---
Exam Note: Jassi Note: This note is late entry for 03/12/2020 covers elements not covered in my initial note. Subjective: The patient was evaluated in the evening of 03/12/2020 with Niya HOLLINGSWORTH. Per Niya RN, he slept 5-1/4 hours previous night. He has been doing better, appropriate, trying to be helpful to other patients, redirects when nursing staff stating needs to stay in his room. He is less talkative at night. Review of Systems: No CV, , pulmonary, eye, ENT system symptoms on review. Mental Status Exam: The patient is reasonably oriented. Speech is coherent. Abstraction is fair. Computation is impaired. Language function is intact. Attention span is short. No suicidal or homicidal ideation. Laboratory Data: Reviewed. Impression: Bipolar 1 disorder mixed with psychotic features. Impulse control disorder, unspecified. Anxiety disorder unspecified. Plan: No change from initial note. Assessment: Vital Signs/I&O: Vital Signs Date Time Temp Pulse Resp B/P (MAP) Pulse Ox O2 Delivery O2 Flow Rate FiO2 03/14/20 06:07 98.1 64 16 134/74 (94) 98 03/13/20 08:44 Room Air I & O 03/13/20 03/13/20 03/14/20 15:00 23:00 07:00 Intake Total 840 ml 840 ml Balance 840 ml 840 ml Labs: Laboratory Tests Test 03/13/20 09:40 White Blood Count 6.7 x10^3/uL (4.0-11.0) Red Blood Count 4.50 x10^6/uL (4.30-5.70) Hemoglobin 14.5 g/dL (13.0-17.5) Hematocrit 41.3 % (39.0-53.0) Mean Corpuscular Volume 92 fL (79-100) Mean Corpuscular Hemoglobin 32 pg (25-35) Mean Corpuscular Hemoglobin Concent 35 g/dL (31-37) Red Cell Distribution Width 13.1 % (11.5-14.5) Platelet Count 345 x10^3/uL (140-400) Neutrophils (%) (Auto) 61 % (31-73) Lymphocytes (%) (Auto) 20 % (24-48) L Monocytes (%) (Auto) 15 % (0-9) H Eosinophils (%) (Auto) 3 % (0-3) Basophils (%) (Auto) 1 % (0-3) Neutrophils # (Auto) 4.1 x10^3uL (1.8-7.7) Lymphocytes # (Auto) 1.3 x10^3/uL (1.0-4.8) Monocytes # (Auto) 1.0 x10^3/uL (0.0-1.1) Eosinophils # (Auto) 0.2 x10^3/uL (0.0-0.7) Basophils # (Auto) 0.1 x10^3/uL (0.0-0.2) Sodium Level 140 mmol/L (136-145) Potassium Level 3.9 mmol/L (3.5-5.1) Chloride Level 103 mmol/L (98-107) Carbon Dioxide Level 28 mmol/L (21-32) Anion Gap 9 (6-14) Blood Urea Nitrogen 13 mg/dL (8-26) Creatinine 1.1 mg/dL (0.7-1.3) Estimated GFR (Cockcroft-Gault) 66.0 BUN/Creatinine Ratio 12 (6-20) Glucose Level 78 mg/dL (70-99) Calcium Level 9.0 mg/dL (8.5-10.1) Total Bilirubin 0.4 mg/dL (0.2-1.0) Aspartate Amino Transferase (AST) 24 U/L (15-37) Alanine Aminotransferase (ALT) 30 U/L (16-63) Alkaline Phosphatase 98 U/L (46-116) Total Protein 7.5 g/dL (6.4-8.2) Albumin 3.9 g/dL (3.4-5.0) Albumin/Globulin Ratio 1.1 (1.0-1.7) Current Medications: I have reviewed the current psychotropics carefully including drug interactions. Risk benefit ratio favors no change other than as noted in my dictated progress note. Diagnosis: Problems: (1) Major neurocognitive disorder (2) Schizoaffective disorder, bipolar type (3) Impulse control disorder, unspecified (4) Anxiety disorder, unspecified (5) Bipolar disorder, curr episode mixed, severe, with psychotic features (6) Anxiety disorder (7) Frontotemporal dementia with behavioral disturbance (8) Impulse control disorder OBDULIA MOLINA MD Mar 14, 2020 07:00
--- NOTE | 2020-03-14 07:16 | PDOC ---
Exam Note: Jassi Note: This note is late entry for 03/13/2020 covers elements not covered in my initial note. Subjective: The patient was evaluated in the evening of 03/13/2020 with Santa HOLLINGSOWRTH. Per Santa HOLLINGSWORTH, he slept 7-1/4 hours previous night. I met with him in his room on telehealth rounds. He is quite pleasant, appropriate, states he has walked several 100 steps and states he does regular exercise all day. Review of Systems: No CV, , pulmonary, eye, ENT system symptoms on review. Mental Status Exam: The patient is reasonably oriented. Speech is coherent, interactive. Abstraction is fair. Computation is impaired. Language function is intact. Attention span is short. No suicidal or homicidal ideation. Laboratory Data: Reviewed. Impression: Bipolar 1 disorder mixed with psychotic features. Impulse control disorder, unspecified. Anxiety disorder unspecified. Plan: No change from initial note. Assessment: Vital Signs/I&O: Vital Signs Date Time Temp Pulse Resp B/P (MAP) Pulse Ox O2 Delivery O2 Flow Rate FiO2 03/14/20 06:07 98.1 64 16 134/74 (94) 98 03/13/20 08:44 Room Air I & O 03/13/20 03/13/20 03/14/20 15:00 23:00 07:00 Intake Total 840 ml 840 ml Balance 840 ml 840 ml Labs: Laboratory Tests Test 03/13/20 09:40 White Blood Count 6.7 x10^3/uL (4.0-11.0) Red Blood Count 4.50 x10^6/uL (4.30-5.70) Hemoglobin 14.5 g/dL (13.0-17.5) Hematocrit 41.3 % (39.0-53.0) Mean Corpuscular Volume 92 fL (79-100) Mean Corpuscular Hemoglobin 32 pg (25-35) Mean Corpuscular Hemoglobin Concent 35 g/dL (31-37) Red Cell Distribution Width 13.1 % (11.5-14.5) Platelet Count 345 x10^3/uL (140-400) Neutrophils (%) (Auto) 61 % (31-73) Lymphocytes (%) (Auto) 20 % (24-48) L Monocytes (%) (Auto) 15 % (0-9) H Eosinophils (%) (Auto) 3 % (0-3) Basophils (%) (Auto) 1 % (0-3) Neutrophils # (Auto) 4.1 x10^3uL (1.8-7.7) Lymphocytes # (Auto) 1.3 x10^3/uL (1.0-4.8) Monocytes # (Auto) 1.0 x10^3/uL (0.0-1.1) Eosinophils # (Auto) 0.2 x10^3/uL (0.0-0.7) Basophils # (Auto) 0.1 x10^3/uL (0.0-0.2) Sodium Level 140 mmol/L (136-145) Potassium Level 3.9 mmol/L (3.5-5.1) Chloride Level 103 mmol/L (98-107) Carbon Dioxide Level 28 mmol/L (21-32) Anion Gap 9 (6-14) Blood Urea Nitrogen 13 mg/dL (8-26) Creatinine 1.1 mg/dL (0.7-1.3) Estimated GFR (Cockcroft-Gault) 66.0 BUN/Creatinine Ratio 12 (6-20) Glucose Level 78 mg/dL (70-99) Calcium Level 9.0 mg/dL (8.5-10.1) Total Bilirubin 0.4 mg/dL (0.2-1.0) Aspartate Amino Transferase (AST) 24 U/L (15-37) Alanine Aminotransferase (ALT) 30 U/L (16-63) Alkaline Phosphatase 98 U/L (46-116) Total Protein 7.5 g/dL (6.4-8.2) Albumin 3.9 g/dL (3.4-5.0) Albumin/Globulin Ratio 1.1 (1.0-1.7) Current Medications: I have reviewed the current psychotropics carefully including drug interactions. Risk benefit ratio favors no change other than as noted in my dictated progress note. Diagnosis: Problems: (1) Major neurocognitive disorder (2) Schizoaffective disorder, bipolar type (3) Impulse control disorder, unspecified (4) Anxiety disorder, unspecified (5) Bipolar disorder, curr episode mixed, severe, with psychotic features (6) Anxiety disorder (7) Frontotemporal dementia with behavioral disturbance (8) Impulse control disorder OBDULIA MOLINA MD Mar 14, 2020 07:16
[2020-03-14] MEDS: medroxyPROGESTERone 5 MG TABLET PO SCH (08:58)
[2020-03-14] MEDS: CALCIUM CARBONATE 500 MG TABLET PO SCH ×3 (08:58→17:10)
[2020-03-14] MEDS: amLODIPine BESYLATE 5 MG TABLET PO SCH (08:58)
[2020-03-14] MEDS: METOPROLOL SUCC 24HR ER 25 MG TAB.ER.24H. PO SCH (08:59)
[2020-03-14] MEDS: ACETAMINOPHEN 500 MG TABLET PO SCH ×2 (08:59→19:56)
[2020-03-14 15:31] VITALS: BP 144/77
[2020-03-14] MEDS: DIVALPROEX ER 500 MG TAB.ER.24H PO SCH (19:56)
[2020-03-14] MEDS: traZODone 50 MG TABLET. PO SCH (19:56)
--- NOTE | 2020-03-14 22:16 | PDOC ---
Exam Note: Jassi Note: Please also refer to the separate dictated note~for this date of service dictated separately.~Patient seen individually. Discussed the patient with Nursing staff reviewed the chart.~Reviewed interim history and current functioning. Reviewed vital signs,~Labs/ Radiology~and current medications noted below. Continue current treatment with the changes noted in the dictated addendum note Assessment: Vital Signs/I&O: Vital Signs Date Time Temp Pulse Resp B/P (MAP) Pulse Ox O2 Delivery O2 Flow Rate FiO2 03/14/20 20:06 97.8 98 03/14/20 15:31 86 18 144/77 (99) 03/13/20 08:44 Room Air I & O 03/13/20 03/13/20 03/14/20 15:00 23:00 07:00 Intake Total 840 ml 840 ml Balance 840 ml 840 ml Current Medications: I have reviewed the current psychotropics carefully including drug interactions. Risk benefit ratio favors no change other than as noted in my dictated progress note. Diagnosis: Problems: (1) Major neurocognitive disorder (2) Schizoaffective disorder, bipolar type (3) Impulse control disorder, unspecified (4) Anxiety disorder, unspecified (5) Bipolar disorder, curr episode mixed, severe, with psychotic features (6) Anxiety disorder (7) Frontotemporal dementia with behavioral disturbance (8) Impulse control disorder OBDULIA MOLINA MD Mar 14, 2020 22:16
[2020-03-15 06:08] VITALS: BP 139/73
[2020-03-15] MEDS: amLODIPine BESYLATE 5 MG TABLET PO SCH (08:25)
[2020-03-15] MEDS: ACETAMINOPHEN 500 MG TABLET PO SCH ×2 (08:25→20:37)
[2020-03-15] MEDS: METOPROLOL SUCC 24HR ER 25 MG TAB.ER.24H. PO SCH (08:25)
[2020-03-15] MEDS: medroxyPROGESTERone 5 MG TABLET PO SCH (08:25)
[2020-03-15] MEDS: CALCIUM CARBONATE 500 MG TABLET PO SCH ×3 (08:26→17:10)
[2020-03-15] MEDS: ACETAMINOPHEN 325 MG TABLET PO PRN (15:05)
[2020-03-15 15:31] VITALS: BP 137/77
[2020-03-15] MEDS: traZODone 50 MG TABLET. PO SCH (20:37)
[2020-03-15] MEDS: DIVALPROEX ER 500 MG TAB.ER.24H PO SCH (20:37)
--- NOTE | 2020-03-15 22:01 | PDOC ---
Exam Note: Jassi Note: Please also refer to the separate dictated note~for this date of service dictated separately.~Patient seen individually. Discussed the patient with Nursing staff reviewed the chart.~Reviewed interim history and current functioning. Reviewed vital signs,~Labs/ Radiology~and current medications noted below. Continue current treatment with the changes noted in the dictated addendum note Assessment: Vital Signs/I&O: Vital Signs Date Time Temp Pulse Resp B/P (MAP) Pulse Ox O2 Delivery O2 Flow Rate FiO2 03/15/20 15:31 98.1 83 16 137/77 (97) 98 03/15/20 06:08 Room Air I & O 03/14/20 03/14/20 03/15/20 14:59 22:59 06:59 Intake Total 1140 ml 720 ml Balance 1140 ml 720 ml Current Medications: I have reviewed the current psychotropics carefully including drug interactions. Risk benefit ratio favors no change other than as noted in my dictated progress note. Diagnosis: Problems: (1) Major neurocognitive disorder (2) Schizoaffective disorder, bipolar type (3) Impulse control disorder, unspecified (4) Anxiety disorder, unspecified (5) Bipolar disorder, curr episode mixed, severe, with psychotic features (6) Anxiety disorder (7) Frontotemporal dementia with behavioral disturbance (8) Impulse control disorder OBDULIA MOLINA MD Mar 15, 2020 22:01
[2020-03-16 06:05] VITALS: BP 122/79
[2020-03-16] MEDS: medroxyPROGESTERone 5 MG TABLET PO SCH (08:30)
[2020-03-16] MEDS: METOPROLOL SUCC 24HR ER 25 MG TAB.ER.24H. PO SCH (08:31)
[2020-03-16] MEDS: amLODIPine BESYLATE 5 MG TABLET PO SCH (08:31)
[2020-03-16] MEDS: CALCIUM CARBONATE 500 MG TABLET PO SCH ×3 (08:31→17:44)
[2020-03-16] MEDS: ACETAMINOPHEN 500 MG TABLET PO SCH ×2 (08:31→20:56)
[2020-03-16] MEDS: ACETAMINOPHEN 325 MG TABLET PO PRN (15:02)
[2020-03-16 16:09] VITALS: BP 126/76
[2020-03-16] MEDS: DIVALPROEX ER 500 MG TAB.ER.24H PO SCH (20:57)
[2020-03-16] MEDS: traZODone 50 MG TABLET. PO SCH (20:57)
--- NOTE | 2020-03-16 22:22 | PDOC ---
Exam Note: Jassi Note: Please also refer to the separate dictated note~for this date of service dictated separately.~Patient seen individually. Discussed the patient with Nursing staff reviewed the chart.~Reviewed interim history and current functioning. Reviewed vital signs,~Labs/ Radiology~and current medications noted below. Continue current treatment with the changes noted in the dictated addendum note Assessment: Vital Signs/I&O: Vital Signs Date Time Temp Pulse Resp B/P (MAP) Pulse Ox O2 Delivery O2 Flow Rate FiO2 03/16/20 20:25 98.2 96 03/16/20 16:09 78 16 126/76 (93) Room Air I & O 03/15/20 03/15/20 03/16/20 15:00 23:00 07:00 Intake Total 720 ml 240 ml Balance 720 ml 240 ml Current Medications: I have reviewed the current psychotropics carefully including drug interactions. Risk benefit ratio favors no change other than as noted in my dictated progress note. Diagnosis: Problems: (1) Major neurocognitive disorder (2) Schizoaffective disorder, bipolar type (3) Impulse control disorder, unspecified (4) Anxiety disorder, unspecified (5) Bipolar disorder, curr episode mixed, severe, with psychotic features (6) Anxiety disorder (7) Frontotemporal dementia with behavioral disturbance (8) Impulse control disorder OBDULIA MOLINA MD Mar 16, 2020 22:22
[2020-03-17 05:54] VITALS: BP 157/81
--- NOTE | 2020-03-17 07:10 | PDOC ---
Exam Note: Jassi Note: This note is late entry for 03/14/2020 covers elements not covered in my initial note. Subjective: The patient was evaluated in the evening of 03/14/2020 with Santa HOLLINGSWORTH. Per Santa RN, he slept 6 hours previous night. He did well previous night and during the day. Review of Systems: No CV, , pulmonary, eye, ENT system symptoms on review. Mental Status Exam: The patient is reasonably oriented. Speech is coherent. Abstraction is fair. Computation is impaired. Language function is intact. Attention span is short. No suicidal or homicidal ideation. Laboratory Data: Reviewed. Impression: Bipolar 1 disorder mixed with psychotic features. Impulse control disorder, unspecified. Anxiety disorder unspecified. Plan: No change from initial note. Assessment: Vital Signs/I&O: Vital Signs Date Time Temp Pulse Resp B/P (MAP) Pulse Ox O2 Delivery O2 Flow Rate FiO2 03/17/20 05:54 97.8 64 16 157/81 (106) 98 03/16/20 16:09 Room Air I & O 03/16/20 03/16/20 03/17/20 15:00 23:00 07:00 Intake Total 1320 ml 840 ml Balance 1320 ml 840 ml Current Medications: I have reviewed the current psychotropics carefully including drug interactions. Risk benefit ratio favors no change other than as noted in my dictated progress note. Diagnosis: Problems: (1) Major neurocognitive disorder (2) Schizoaffective disorder, bipolar type (3) Impulse control disorder, unspecified (4) Anxiety disorder, unspecified (5) Bipolar disorder, curr episode mixed, severe, with psychotic features (6) Anxiety disorder (7) Frontotemporal dementia with behavioral disturbance (8) Impulse control disorder OBDULIA MOLINA MD Mar 17, 2020 07:10
--- NOTE | 2020-03-17 07:25 | PDOC ---
Exam Note: Jassi Note: This note is late entry for 03/15/2020 covers elements not covered in my initial note. Subjective: The patient was evaluated in the evening of 03/15/2020 with Niya HOLLINGSWORTH. He slept 7 hours previous night. He is pleasant, cooperative. He does walk and tries to exercise during the day. Review of Systems: No CV, , pulmonary, eye, ENT system symptoms on review. Mental Status Exam: The patient is reasonably oriented. Speech is coherent. He is pleasant, cooperative. Abstraction is fair. Computation is impaired. Language function is intact. Attention span is short. No suicidal or homicidal ideation. Laboratory Data: Reviewed. Impression: Bipolar 1 disorder mixed with psychotic features. Impulse control disorder, unspecified. Anxiety disorder unspecified. Plan: No change from initial note. Assessment: Vital Signs/I&O: Vital Signs Date Time Temp Pulse Resp B/P (MAP) Pulse Ox O2 Delivery O2 Flow Rate FiO2 03/17/20 05:54 97.8 64 16 157/81 (106) 98 03/16/20 16:09 Room Air I & O 03/16/20 03/16/20 03/17/20 15:00 23:00 07:00 Intake Total 1320 ml 840 ml Balance 1320 ml 840 ml Current Medications: I have reviewed the current psychotropics carefully including drug interactions. Risk benefit ratio favors no change other than as noted in my dictated progress note. Diagnosis: Problems: (1) Major neurocognitive disorder (2) Schizoaffective disorder, bipolar type (3) Impulse control disorder, unspecified (4) Anxiety disorder, unspecified (5) Bipolar disorder, curr episode mixed, severe, with psychotic features (6) Anxiety disorder (7) Frontotemporal dementia with behavioral disturbance (8) Impulse control disorder OBDULIA MOLINA MD Mar 17, 2020 07:25
--- NOTE | 2020-03-17 07:32 | PDOC ---
Exam Note: Jassi Note: This note is late entry for 03/16/2020 covers elements not covered in my initial note. Subjective: The patient was evaluated in the evening of 03/16/2020 with Rosalia HOLLINGSWORTH. Per Rosalia HOLLINGSWORTH, he slept 6-1/2 hours previous night. He does take the kevin and listen to music, more so after breakfast. He was somewhat obsessive, but distressed about a crack in the glass window. I processed this with him. Review of Systems: No CV, , pulmonary, eye, ENT system symptoms on review. Mental Status Exam: The patient is reasonably oriented. Speech is coherent, interactive. Abstraction is fair. Computation is impaired. Language function is intact. Attention span is short. No suicidal or homicidal ideation. Laboratory Data: Reviewed. Impression: Bipolar 1 disorder mixed with psychotic features. Impulse control disorder, unspecified. Anxiety disorder unspecified. Plan: No change from initial note. Assessment: Vital Signs/I&O: Vital Signs Date Time Temp Pulse Resp B/P (MAP) Pulse Ox O2 Delivery O2 Flow Rate FiO2 03/17/20 05:54 97.8 64 16 157/81 (106) 98 03/16/20 16:09 Room Air I & O 03/16/20 03/16/20 03/17/20 15:00 23:00 07:00 Intake Total 1320 ml 840 ml Balance 1320 ml 840 ml Current Medications: I have reviewed the current psychotropics carefully including drug interactions. Risk benefit ratio favors no change other than as noted in my dictated progress note. Diagnosis: Problems: (1) Major neurocognitive disorder (2) Schizoaffective disorder, bipolar type (3) Impulse control disorder, unspecified (4) Anxiety disorder, unspecified (5) Bipolar disorder, curr episode mixed, severe, with psychotic features (6) Anxiety disorder (7) Frontotemporal dementia with behavioral disturbance (8) Impulse control disorder OBDULIA MOLINA MD Mar 17, 2020 07:32
[2020-03-17] MEDS: METOPROLOL SUCC 24HR ER 25 MG TAB.ER.24H. PO SCH (08:40)
[2020-03-17] MEDS: medroxyPROGESTERone 5 MG TABLET PO SCH (08:40)
[2020-03-17] MEDS: CALCIUM CARBONATE 500 MG TABLET PO SCH ×3 (08:41→17:15)
[2020-03-17] MEDS: ACETAMINOPHEN 500 MG TABLET PO SCH ×2 (08:41→19:59)
[2020-03-17] MEDS: amLODIPine BESYLATE 5 MG TABLET PO SCH (08:41)
[2020-03-17 15:23] VITALS: BP 130/83
[2020-03-17] MEDS: traZODone 50 MG TABLET. PO SCH (19:58)
[2020-03-17] MEDS: DIVALPROEX ER 500 MG TAB.ER.24H PO SCH (19:59)
--- NOTE | 2020-03-17 21:54 | PDOC ---
Exam Note: Jassi Note: Please also refer to the separate dictated note~for this date of service dictated separately.~Patient seen individually. Discussed the patient with Nursing staff reviewed the chart.~Reviewed interim history and current functioning. Reviewed vital signs,~Labs/ Radiology~and current medications noted below. Continue current treatment with the changes noted in the dictated addendum note Assessment: Vital Signs/I&O: Vital Signs Date Time Temp Pulse Resp B/P (MAP) Pulse Ox O2 Delivery O2 Flow Rate FiO2 03/17/20 20:27 98.7 97 03/17/20 15:23 94 18 130/83 (99) 03/16/20 16:09 Room Air I & O 03/16/20 03/16/20 03/17/20 15:00 23:00 07:00 Intake Total 1320 ml 840 ml Balance 1320 ml 840 ml Current Medications: I have reviewed the current psychotropics carefully including drug interactions. Risk benefit ratio favors no change other than as noted in my dictated progress note. Diagnosis: Problems: (1) Major neurocognitive disorder (2) Schizoaffective disorder, bipolar type (3) Impulse control disorder, unspecified (4) Anxiety disorder, unspecified (5) Bipolar disorder, curr episode mixed, severe, with psychotic features (6) Anxiety disorder (7) Frontotemporal dementia with behavioral disturbance (8) Impulse control disorder OBDULIA MOLINA MD Mar 17, 2020 21:54
[2020-03-18 06:19] VITALS: BP_SYST 131; BP_DIAS 4; BP_DIAS 74
--- NOTE | 2020-03-18 06:47 | PDOC ---
Exam Note: Jassi Note: This note is late entry for 03/17/2020 covers elements not covered in my initial note. Subjective: The patient was evaluated in the evening of 03/17/2020 with Rosalia HOLLINGSWORTH. Per Rosalia HOLLINGSWORTH, he slept 7-1/4 hours previous night. He has been demanding to use the kevin but some of this is understandable and he was given kevin after breakfast. He sat outside on the patio watching the tree being cut down. Review of Systems: No CV, , pulmonary, eye, ENT system symptoms on review. Mental Status Exam: The patient is well oriented. He was pleasant, smiling, interactive. He states if he cannot be accepted back at nursing he would rather go home and he will go to the [facility] every 2 weeks to do his grocery shopping, cook and clean for himself in case if he is capable of that. We addressed this and the need for him to have a more structured setting. He is agreeable to this. Speech is coherent. Abstraction is fair. Computation is impaired. Language function is intact. Attention span is short. No suicidal or homicidal ideation. Laboratory Data: Reviewed. Impression: Bipolar 1 disorder mixed with psychotic features. Impulse control disorder, unspecified. Anxiety disorder unspecified. Plan: No change from initial note. Assessment: Vital Signs/I&O: Vital Signs Date Time Temp Pulse Resp B/P (MAP) Pulse Ox O2 Delivery O2 Flow Rate FiO2 03/18/20 06:19 97.9 65 20 131/74 (93) 98 03/16/20 16:09 Room Air I & O 03/17/20 03/17/20 03/18/20 15:00 23:00 07:00 Intake Total 1140 ml 720 ml Balance 1140 ml 720 ml Current Medications: I have reviewed the current psychotropics carefully including drug interactions. Risk benefit ratio favors no change other than as noted in my dictated progress note. Diagnosis: Problems: (1) Major neurocognitive disorder (2) Schizoaffective disorder, bipolar type (3) Impulse control disorder, unspecified (4) Anxiety disorder, unspecified (5) Bipolar disorder, curr episode mixed, severe, with psychotic features (6) Anxiety disorder (7) Frontotemporal dementia with behavioral disturbance (8) Impulse control disorder OBDULIA MOLINA MD Mar 18, 2020 06:47
[2020-03-18] MEDS: CALCIUM CARBONATE 500 MG TABLET PO SCH ×3 (07:59→17:03)
[2020-03-18] MEDS: amLODIPine BESYLATE 5 MG TABLET PO SCH (07:59)
[2020-03-18] MEDS: medroxyPROGESTERone 5 MG TABLET PO SCH (07:59)
[2020-03-18] MEDS: ACETAMINOPHEN 500 MG TABLET PO SCH ×2 (07:59→20:24)
[2020-03-18] MEDS: METOPROLOL SUCC 24HR ER 25 MG TAB.ER.24H. PO SCH (08:00)
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
[2020-03-18 15:23] VITALS: BP 125/76
[2020-03-18] MEDS: traZODone 50 MG TABLET. PO SCH (20:23)
[2020-03-18] MEDS: DIVALPROEX ER 500 MG TAB.ER.24H PO SCH (20:24)
[2020-03-18] MEDS ORDERED: CETI10TA24 PO (20:31)
[2020-03-18] MEDS ORDERED: DIVA500T17 PO (20:32)
--- NOTE | 2020-03-18 21:50 | PDOC ---
Exam Note: Jassi Note: Please also refer to the separate dictated note~for this date of service dictated separately.~Patient seen individually. Discussed the patient with Nursing staff reviewed the chart.~Reviewed interim history and current functioning. Reviewed vital signs,~Labs/ Radiology~and current medications noted below. Continue current treatment with the changes noted in the dictated addendum note Assessment: Vital Signs/I&O: Vital Signs Date Time Temp Pulse Resp B/P (MAP) Pulse Ox O2 Delivery O2 Flow Rate FiO2 03/18/20 20:27 97.0 98 03/18/20 15:23 103 125/76 (92) 03/18/20 06:19 20 03/16/20 16:09 Room Air I & O 03/17/20 03/17/20 03/18/20 15:00 23:00 07:00 Intake Total 1140 ml 720 ml Balance 1140 ml 720 ml Current Medications: I have reviewed the current psychotropics carefully including drug interactions. Risk benefit ratio favors no change other than as noted in my dictated progress note. Diagnosis: Problems: (1) Major neurocognitive disorder (2) Schizoaffective disorder, bipolar type (3) Impulse control disorder, unspecified (4) Anxiety disorder, unspecified (5) Bipolar disorder, curr episode mixed, severe, with psychotic features (6) Anxiety disorder (7) Frontotemporal dementia with behavioral disturbance (8) Impulse control disorder OBDULIA MOLINA MD Mar 18, 2020 21:50
[2020-03-19 06:32] VITALS: BP 151/82
[2020-03-19] MEDS: CALCIUM CARBONATE 500 MG TABLET PO SCH (08:02)
[2020-03-19 08:03] VITALS: BP 151/82
[2020-03-19] MEDS: ACETAMINOPHEN 500 MG TABLET PO SCH (08:03)
[2020-03-19] MEDS: amLODIPine BESYLATE 5 MG TABLET PO SCH (08:03)
[2020-03-19] MEDS: METOPROLOL SUCC 24HR ER 25 MG TAB.ER.24H. PO SCH (08:03)
[2020-03-19] MEDS: medroxyPROGESTERone 5 MG TABLET PO SCH (08:03)
--- NOTE | 2020-03-19 21:51 | PDOC ---
Exam Note: Jassi Note: Please also refer to the separate dictated note~for this date of service dictated separately.~Patient seen individually. Discussed the patient with Nursing staff reviewed the chart.~Reviewed interim history and current functioning. Reviewed vital signs,~Labs/ Radiology~and current medications noted below. Continue current treatment with the changes noted in the dictated addendum note Assessment: Vital Signs/I&O: Vital Signs Date Time Temp Pulse Resp B/P (MAP) Pulse Ox O2 Delivery O2 Flow Rate FiO2 03/19/20 08:50 97.9 99 Room Air 03/19/20 08:03 63 151/82 03/19/20 06:32 18 I & O 03/18/20 03/18/20 03/19/20 15:00 23:00 07:00 Intake Total 480 ml 840 ml Balance 480 ml 840 ml Current Medications: I have reviewed the current psychotropics carefully including drug interactions. Risk benefit ratio favors no change other than as noted in my dictated progress note. Diagnosis: Problems: (1) Major neurocognitive disorder (2) Schizoaffective disorder, bipolar type (3) Impulse control disorder, unspecified (4) Anxiety disorder, unspecified (5) Bipolar disorder, curr episode mixed, severe, with psychotic features (6) Anxiety disorder (7) Frontotemporal dementia with behavioral disturbance (8) Impulse control disorder OBDULIA MOLINA MD Mar 19, 2020 21:51
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
--- NOTE | 2020-03-21 06:45 | PDOC ---
Exam Note: Jassi Note: This note is late entry for 03/18/2020 covers elements not covered in my initial note. Subjective: The patient was evaluated in the morning of 03/18/2020 on telehealth rounds for a treatment team meeting with Samra (social insurance analyst)Niya RN. Appetite is 100%. The patients Pennie attended the treatment team meeting as well. He was also seen on telehealth rounds in the evening. The patients sleeping average is 7 hours. He slept 4-3/4 hours previous night. He has been appropriate, pleasant, cooperative. We discussed alternate placements since he is not being accepted back at [facility]. Review of Systems: No CV, , pulmonary, eye, ENT system symptoms on review. Mental Status Exam: The patient is well oriented. He was pleasant, cooperative as I met with him. Speech is coherent. Abstraction is fair. Computation is impaired. Language function is intact. Attention span is short. No suicidal or homicidal ideation. Laboratory Data: Reviewed. Impression: Bipolar 1 disorder mixed with psychotic features. Impulse control disorder, unspecified. Anxiety disorder unspecified. Plan: We discussed alternate placements since he is not being accepted back at [facility]. Assessment: Vital Signs/I&O: Vital Signs Date Time Temp Pulse Resp B/P (MAP) Pulse Ox O2 Delivery O2 Flow Rate FiO2 03/19/20 08:50 97.9 99 Room Air 03/19/20 08:03 63 151/82 03/19/20 06:32 18 Current Medications: I have reviewed the current psychotropics carefully including drug interactions. Risk benefit ratio favors no change other than as noted in my dictated progress note. Diagnosis: Problems: (1) Major neurocognitive disorder (2) Schizoaffective disorder, bipolar type (3) Impulse control disorder, unspecified (4) Anxiety disorder, unspecified (5) Bipolar disorder, curr episode mixed, severe, with psychotic features (6) Anxiety disorder (7) Frontotemporal dementia with behavioral disturbance (8) Impulse control disorder OBDULIA MOLINA MD Mar 21, 2020 06:45
== END 2020-03-19 11:00 | DRG 885 ==
LOC: GEROPSY 10:07
PROVIDERS: ADMIT Psychiatry & Neurology Psychiatry; ATTEND Psychiatry & Neurology Psychiatry
DX: F25.0 Schizoaffective disorder, bipolar type (principal); F02.81 Dementia in other diseases classified elsewhere, unspecified severity, with behavioral disturbance; F01.51 Vascular dementia, unspecified severity, with behavioral disturbance; F41.9 Anxiety disorder, unspecified; F63.9 Impulse disorder, unspecified; Z20.828 Contact with and (suspected) exposure to other viral communicable diseases; G31.09 Other frontotemporal neurocognitive disorder; I10 Essential (primary) hypertension; M19.90 Unspecified osteoarthritis, unspecified site; Z79.899 Other long term (current) drug therapy; Z86.73 Personal history of transient ischemic attack (TIA), and cerebral infarction without residual deficits
CPT/HCPCS: 36415; 70450; 80048; 80053; 80061; 80164; 82306; 82607; 83036; 83540; 83550; 83735; 84436; 84480; 85025; 86592; U0003-CS

== ENCOUNTER 2020-06-04 14:37 | Inpatient (IN) | payer MEDICARE, MEDICAID ==
[~2020-06-04] VITALS: Ht 170.2 cm; Wt 89.3 kg
[~2020-06-04 14:37] MED LIST changes: +ACET500T68 PO; +AMLO-187 PO; -AMLO10TA8 PO; +CALC250T PO; +CETI10TA74 PO; +CYCL-331 PO; +DICL100G18 TP; +DIVA500T17 PO; +LORA10CA PO; +METO-239 PO
[2020-06-04 15:33] VITALS: BP 158/100
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
[2020-06-04] MEDS ORDERED: CETIRIZINE HCL 10 MG TABLET PO PRN (17:45)
[2020-06-04] MEDS ORDERED: MAG HYDROX/AL HYDROX/SIMETH 30 ML ORAL.SUSP PO PRN (17:45)
[2020-06-04] MEDS ORDERED: DICLOFENAC SODIUM 1% TOPICAL GEL 100GM TUBE. TP PRN (17:45)
[2020-06-04] MEDS ORDERED: CYCLOBENZAPRINE 10 MG TABLET. PO PRN (17:45)
[2020-06-04] MEDS ORDERED: METHYL SALICYLATE/MENTHOL TOPICAL OINTMENT 57GM TUBE. TP PRN (18:00)
[2020-06-04] MEDS ORDERED: MAGNESIUM HYDROXIDE 2,400 MG/30 ML ORAL.SUSP. PO PRN (18:00)
[2020-06-04] MEDS: CALCIUM CARBONATE 500 MG TAB.CHEW PO SCH (18:30)
[2020-06-04 20:20] VITALS: BP 136/87
[2020-06-04] MEDS: ACETAMINOPHEN 500 MG TABLET PO SCH (20:45)
[2020-06-04] MEDS ORDERED: traZODone 50 MG TABLET. PO SCH (21:00)
[2020-06-04] MEDS ORDERED: DIVALPROEX ER 500 MG TAB.ER.24H PO SCH (21:00)
--- NOTE | 2020-06-04 22:10 | PDOC ---
Exam Note: Jassi Note: Please also refer to the separate dictated note~for this date of service dictated separately.~Patient seen individually. Discussed the patient with Nursing staff reviewed the chart.~Reviewed interim history and current functioning. Reviewed vital signs,~Labs/ Radiology~and current medications noted below. Continue current treatment with the changes noted in the dictated addendum note Assessment: Vital Signs/I&O: Vital Signs Date Time Temp Pulse Resp B/P (MAP) Pulse Ox O2 Delivery O2 Flow Rate FiO2 06/04/20 20:30 Room Air 06/04/20 20:20 98.4 87 18 136/87 (103) 93 Current Medications: Meds: Current Medications Medications (Trade) Dose Ordered Sig/Vicente Route PRN Reason Start Time Stop Time Status Last Admin Dose Admin Acetaminophen (Tylenol) 1,000 mg BID PO 06/04/20 21:00 06/04/20 20:45 Divalproex Sodium (Depakote Er) 1,000 mg QHS PO 06/04/20 21:00 06/04/20 20:45 Trazodone HCl (Desyrel) 50 mg QHS PO 06/04/20 21:00 06/04/20 20:45 I have reviewed the current psychotropics carefully including drug interactions. Risk benefit ratio favors no change other than as noted in my dictated progress note. Diagnosis: Problems: (1) Major neurocognitive disorder (2) Schizoaffective disorder, bipolar type (3) Impulse control disorder, unspecified (4) Anxiety disorder, unspecified (5) Bipolar disorder, curr episode mixed, severe, with psychotic features (6) Person under investigation for COVID-19 (7) Anxiety disorder (8) Frontotemporal dementia with behavioral disturbance (9) Impulse control disorder OBDULIA MOLINA MD Jun 04, 2020 22:10
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
[2020-06-05 08:27] VITALS: BP 148/72
[2020-06-05] MEDS ORDERED: amLODIPine BESYLATE 5 MG TABLET PO SCH (09:00)
[2020-06-05] MEDS ORDERED: METOPROLOL SUCC 24HR ER 25 MG TAB.ER.24H. PO SCH (09:00)
[2020-06-05 09:03] VITALS: BP 148/72
[2020-06-05] MEDS: CALCIUM CARBONATE 500 MG TAB.CHEW PO SCH ×2 (09:03→12:47)
[2020-06-05] MEDS: ACETAMINOPHEN 500 MG TABLET PO SCH (09:03)
--- NOTE | 2020-06-05 15:02 | DS ---
DATE OF DISCHARGE: 06/05/2020 HOSPITAL COURSE: The patient is a 69-year-old male patient, a resident at [facility], in [place], [place], who was admitted to skilled unit of [facility] and his COVID test was done and was negative and was discharged to [facility] for inpatient psychiatric stabilization. PHYSICAL EXAMINATION: GENERAL: When I saw him this afternoon, he was sitting comfortably in his chair, in no apparent respiratory distress. No pallor, jaundice, cyanosis or thyromegaly. No jugular venous distention or limb edema. VITAL SIGNS: His heart rate was 58, blood pressure was 148/72, temperature was 98.5, respiratory rate was 18 and oxygen saturation was 97% on room air. The rest of clinical exam is stable. The patient is ambulatory without any assistance or assistive devices. LABORATORY DATA: His lab work done at [facility] were all within normal range. DISCHARGE MEDICATIONS: He was discharged to [facility] to continue on his acetaminophen 1000 mg twice a day, amlodipine 5 mg once a day, calcium citrate 500 mg 3 times a day, cetirizine 10 mg once a day, cyclobenzaprine 10 mg at bedtime, diclofenac sodium 1 gram applied topically every 6 hours, divalproex sodium 1000 mg at bedtime. He is on Mylanta 15 mL after meals and as needed, milk of magnesia 30 mL p.o. daily p.r.n. for constipation. He is on analgesic balm applied topically 4 times a day, metoprolol succinate 25 mg once a day and trazodone 50 mg at bedtime. FINAL DISCHARGE DIAGNOSES: Bipolar disorder, mixed with psychotic features, impulse control disorder, anxiety disorder. His COVID screen is negative. ROJELIO BERG MD DR: NAVA/eileen JOB#: [id number] / [id number]
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
== END 2020-06-05 15:05 | DRG 57 ==
LOC: 1 SOUTH 14:37
PROVIDERS: ADMIT Internal Medicine; ATTEND Internal Medicine
DX: G31.09 Other frontotemporal neurocognitive disorder (principal); F02.81 Dementia in other diseases classified elsewhere, unspecified severity, with behavioral disturbance; F25.0 Schizoaffective disorder, bipolar type; E78.5 Hyperlipidemia, unspecified; F01.50 Vascular dementia, unspecified severity, without behavioral disturbance, psychotic disturbance, mood disturbance, and anxiety; F41.9 Anxiety disorder, unspecified; F63.9 Impulse disorder, unspecified; I10 Essential (primary) hypertension; Z20.828 Contact with and (suspected) exposure to other viral communicable diseases; Z80.1 Family history of malignant neoplasm of trachea, bronchus and lung; Z86.73 Personal history of transient ischemic attack (TIA), and cerebral infarction without residual deficits; Z87.891 Personal history of nicotine dependence; Z88.8 Allergy status to other drugs, medicaments and biological substances
CPT/HCPCS: U0003

== ENCOUNTER 2020-06-05 15:05 | Inpatient (IN) | payer MEDICARE, MEDICAID ==
[~2020-06-05] VITALS: Ht 170.2 cm; Wt 96.8 kg
[~2020-06-05 15:05] MED LIST changes: +NEOM1OIN TP; -NEOM1OIN13 TP
[2020-06-05] MEDS ORDERED: METHYL SALICYLATE/MENTHOL TOPICAL OINTMENT 57GM TUBE. TP PRN ×2 (16:45→18:45)
[2020-06-05] MEDS ORDERED: MAG HYDROX/AL HYDROX/SIMETH 30 ML ORAL.SUSP PO PRN ×2 (16:45→18:15)
[2020-06-05 18:29] VITALS: BP 148/82
[2020-06-05] MEDS: CALCIUM CARBONATE 500 MG TAB.CHEW PO SCH (18:42)
[2020-06-05] MEDS ORDERED: MAGNESIUM HYDROXIDE 2,400 MG/30 ML ORAL.SUSP. PO PRN (18:45)
[2020-06-05 19:10] LABS: ALBUMIN 3.8 g/dL (3.4-5.0); CALCIUM 9.5 mg/dL (8.5-10.1); CREATININE 1.2 mg/dL (0.7-1.3); GFR 59.7; TOTAL BILIRUBIN 0.4 mg/dL (0.2-1.0); TOTAL PROTEIN 7.5 g/dL (6.4-8.2)
[2020-06-05 19:16] LABS: BASO # 0.1 x10^3/uL (0.0-0.2); BASO % 1 % (0-3); EOS # 0.1 x10^3/uL (0.0-0.7); EOS % 2 % (0-3); HEMATOCRIT 42.2 % (39.0-53.0); HEMOGLOBIN 14.4 g/dL (13.0-17.5); LYMPH # 1.3 x10^3/uL (1.0-4.8); LYMPH % 17 % (24-48); MEAN CORPUSCULAR HEMOGLOBIN 32 pg (25-35); MEAN CORPUSCULAR HGB CONC 34 g/dL (31-37); MEAN CORPUSCULAR VOLUME 92 fL (79-100); MONO # 0.8 x10^3/uL (0.0-1.1); MONO % 11 % (0-9); NEUT # 5.4 x10^3uL (1.8-7.7); NEUT % 70 % (31-73); PLATELET COUNT 311 x10^3/uL (140-400); RED BLOOD COUNT 4.58 x10^6/uL (4.30-5.70); RED CELL DISTRIBUTION WIDTH 13.2 % (11.5-14.5); WHITE BLOOD COUNT 7.7 x10^3/uL (4.0-11.0)
[2020-06-05] MEDS: DIVALPROEX ER 500 MG TAB.ER.24H PO SCH (20:04)
[2020-06-05] MEDS: ACETAMINOPHEN 500 MG TABLET PO SCH (20:04)
[2020-06-05] MEDS: traZODone 50 MG TABLET. PO SCH (20:06)
[2020-06-05] MEDS: CETIRIZINE HCL 10 MG TABLET PO PRN (20:13)
[2020-06-06 06:00] VITALS: BP 133/82
[2020-06-06] MEDS: CALCIUM CARBONATE 500 MG TAB.CHEW PO SCH ×3 (08:14→08:17)
[2020-06-06] MEDS: amLODIPine BESYLATE 10 MG TABLET PO SCH (08:14)
[2020-06-06] MEDS: ACETAMINOPHEN 500 MG TABLET PO SCH ×2 (08:14→20:47)
[2020-06-06] MEDS: METOPROLOL SUCC 24HR ER 25 MG TAB.ER.24H. PO SCH (08:14)
[2020-06-06 10:43] LABS: THYROID STIM HORMONE (TSH) 0.793 uIU/mL (0.358-3.740)
[2020-06-06 15:50] VITALS: BP 121/76
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
[2020-06-06 20:20] LABS: CLARITY,URINE CLEAR; COLOR,URINE YELLOW
[2020-06-06 20:21] LABS: BACTERIA,URINE 0 /HPF (0-FEW); BILIRUBIN,URINE NEG (NEG); GLUCOSE,URINE NEG (NEG); NITRITE,URINE NEG (NEG); SQUAMOUS EPITHELIAL CELL,UR OCC /LPF; UROBILINOGEN,URINE 0.2 mg/dL (0.2 mg/dL); WBC,URINE OCC /HPF (0-4)
[2020-06-06] MEDS: DIVALPROEX ER 500 MG TAB.ER.24H PO SCH (20:47)
[2020-06-06] MEDS: traZODone 50 MG TABLET. PO SCH (20:48)
[2020-06-06 23:09] LABS: THYROXINE 5.8 ug/dL (4.5-12.0)
[2020-06-07 03:10] LABS: HEMOGLOBIN A1C 5.2 % (4.8-5.6)
[2020-06-07 06:00] VITALS: BP 113/69
--- NOTE | 2020-06-07 06:52 | PDOC ---
Exam Note: Jassi Note: This is a late entry for DOS 06/05/2020. Please also refer to the separate dictated note~for this date of service dictated separately.~Patient seen individually. Discussed the patient with Nursing staff reviewed the chart.~Reviewed interim history and current functioning. Reviewed vital signs,~Labs/ Radiology~and current medications noted below. Continue current treatment with the changes noted in the dictated addendum note Assessment: Vital Signs/I&O: Vital Signs Date Time Temp Pulse Resp B/P (MAP) Pulse Ox O2 Delivery O2 Flow Rate FiO2 06/07/20 06:00 97.9 73 16 113/69 (84) 98 Room Air I & O 06/06/20 06/06/20 06/07/20 14:59 22:59 06:59 Intake Total 960 ml 360 ml Balance 960 ml 360 ml Labs: Laboratory Tests Test 06/06/20 19:53 Urine Collection Type Unknown Urine Color Yellow Urine Clarity Clear Urine pH 7.0 Urine Specific [place] 1.020 Urine Protein Neg (NEG-TRACE) Urine Glucose (UA) Neg mg/dL (NEG) Urine Ketones (Stick) Neg mg/dL (NEG) Urine Blood Small (NEG) Urine Nitrite Neg (NEG) Urine Bilirubin Neg (NEG) Urine Urobilinogen Dipstick 0.2 mg/dL (0.2 mg/dL) Urine Leukocyte Esterase Neg (NEG) Urine RBC 1-2 /HPF (0-2) Urine WBC Occ /HPF (0-4) Urine Squamous Epithelial Cells Occ /LPF Urine Bacteria 0 /HPF (0-FEW) Current Medications: Meds: Current Medications Medications (Trade) Dose Ordered Sig/Vicente Route PRN Reason Start Time Stop Time Status Last Admin Dose Admin Amlodipine Besylate (Norvasc) 5 mg DAILY PO 06/06/20 09:00 06/06/20 08:14 Metoprolol Succinate (Toprol Xl) 25 mg DAILY PO 06/06/20 09:00 06/06/20 08:14 I have reviewed the current psychotropics carefully including drug interactions. Risk benefit ratio favors no change other than as noted in my dictated progress note. Diagnosis: Problems: (1) Bipolar disorder, curr episode mixed, severe, with psychotic features (2) Anxiety disorder (3) Frontotemporal dementia with behavioral disturbance (4) Impulse control disorder (5) Anxiety disorder, unspecified (6) Major neurocognitive disorder (7) Schizoaffective disorder, bipolar type OBDULIA MOLINA MD Jun 07, 2020 06:52
--- NOTE | 2020-06-07 06:53 | PDOC ---
Exam Note: Jassi Note: This is a late entry for DOS 06/06/2020. Please also refer to the separate dictated note~for this date of service dictated separately.~Patient seen individually. Discussed the patient with Nursing staff reviewed the chart.~Reviewed interim history and current functioning. Reviewed vital signs,~Labs/ Radiology~and current medications noted below. Continue current treatment with the changes noted in the dictated addendum note Assessment: Vital Signs/I&O: Vital Signs Date Time Temp Pulse Resp B/P (MAP) Pulse Ox O2 Delivery O2 Flow Rate FiO2 06/07/20 06:00 97.9 73 16 113/69 (84) 98 Room Air I & O 06/06/20 06/06/20 06/07/20 14:59 22:59 06:59 Intake Total 960 ml 360 ml Balance 960 ml 360 ml Labs: Laboratory Tests Test 06/06/20 19:53 Urine Collection Type Unknown Urine Color Yellow Urine Clarity Clear Urine pH 7.0 Urine Specific [place] 1.020 Urine Protein Neg (NEG-TRACE) Urine Glucose (UA) Neg mg/dL (NEG) Urine Ketones (Stick) Neg mg/dL (NEG) Urine Blood Small (NEG) Urine Nitrite Neg (NEG) Urine Bilirubin Neg (NEG) Urine Urobilinogen Dipstick 0.2 mg/dL (0.2 mg/dL) Urine Leukocyte Esterase Neg (NEG) Urine RBC 1-2 /HPF (0-2) Urine WBC Occ /HPF (0-4) Urine Squamous Epithelial Cells Occ /LPF Urine Bacteria 0 /HPF (0-FEW) Current Medications: Meds: Current Medications Medications (Trade) Dose Ordered Sig/Vicente Route PRN Reason Start Time Stop Time Status Last Admin Dose Admin Amlodipine Besylate (Norvasc) 5 mg DAILY PO 06/06/20 09:00 06/06/20 08:14 Metoprolol Succinate (Toprol Xl) 25 mg DAILY PO 06/06/20 09:00 06/06/20 08:14 I have reviewed the current psychotropics carefully including drug interactions. Risk benefit ratio favors no change other than as noted in my dictated progress note. Diagnosis: Problems: (1) Impulse control disorder, unspecified (2) Schizoaffective disorder, bipolar type (3) Anxiety disorder, unspecified (4) Bipolar disorder, curr episode mixed, severe, with psychotic features (5) Major neurocognitive disorder (6) Anxiety disorder (7) Frontotemporal dementia with behavioral disturbance (8) Impulse control disorder OBDULIA MOLINA MD Jun 07, 2020 06:53
[2020-06-07 07:40] LABS: VAL ACID 42 mcg/mL (50-100)
[2020-06-07] MEDS: CALCIUM CARBONATE 500 MG TAB.CHEW PO SCH ×3 (08:48→17:48)
[2020-06-07] MEDS: ACETAMINOPHEN 500 MG TABLET PO SCH ×2 (08:48→20:09)
[2020-06-07] MEDS: METOPROLOL SUCC 24HR ER 25 MG TAB.ER.24H. PO SCH (08:49)
[2020-06-07] MEDS: amLODIPine BESYLATE 10 MG TABLET PO SCH (08:55)
[2020-06-07 16:00] VITALS: BP 107/64
[2020-06-07] MEDS: CHOLECALCIFEROL (VITAMIN D3) 50,000 UNIT CAPSULE PO SCH (17:47)
[2020-06-07] MEDS: traZODone 50 MG TABLET. PO SCH (20:10)
[2020-06-07] MEDS: DIVALPROEX ER 500 MG TAB.ER.24H PO SCH (20:12)
[2020-06-07] MEDS: ATORVASTATIN CALCIUM 10 MG TABLET. PO SCH (20:12)
[2020-06-07] MEDS: ACETAMINOPHEN 325 MG TABLET PO PRN (20:55)
--- NOTE | 2020-06-07 22:08 | PDOC ---
Exam Note: Jassi Note: Please also refer to the separate dictated note~for this date of service dictated separately.~Patient seen individually. Discussed the patient with Nursing staff reviewed the chart.~Reviewed interim history and current functioning. Reviewed vital signs,~Labs/ Radiology~and current medications noted below. Continue current treatment with the changes noted in the dictated addendum note Assessment: Vital Signs/I&O: Vital Signs Date Time Temp Pulse Resp B/P (MAP) Pulse Ox O2 Delivery O2 Flow Rate FiO2 06/07/20 16:00 98.3 83 19 107/64 (78) 95 06/07/20 06:00 Room Air I & O 06/06/20 06/06/20 06/07/20 15:00 23:00 07:00 Intake Total 960 ml 360 ml Balance 960 ml 360 ml Labs: Laboratory Tests Test 06/07/20 06:50 Valproic Acid Level 42 mcg/mL (50-100) L Valproic Acid Last Dose Date 06/06/20 Valproic Acid Last Dose Time 2100 Current Medications: Meds: Current Medications Medications (Trade) Dose Ordered Sig/Vicente Route PRN Reason Start Time Stop Time Status Last Admin Dose Admin Divalproex Sodium (Depakote Er) 1,250 mg QHS PO 06/07/20 21:00 06/07/20 20:12 Vitamin D (Vitamin D3) 50,000 unit WEEKLY PO 06/07/20 17:15 06/07/20 17:47 Atorvastatin Calcium (Lipitor) 10 mg QHS PO 06/07/20 21:00 06/07/20 20:12 I have reviewed the current psychotropics carefully including drug interactions. Risk benefit ratio favors no change other than as noted in my dictated progress note. Diagnosis: Problems: (1) Schizoaffective disorder, bipolar type (2) Anxiety disorder, unspecified (3) Impulse control disorder, unspecified (4) Frontotemporal dementia with behavioral disturbance OBDULIA MOLINA MD Jun 07, 2020 22:08
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
[2020-06-08 06:06] VITALS: BP 149/68
--- NOTE | 2020-06-08 06:41 | PDOC ---
Exam Note: Jassi Note: This note is a late entry for 06/06/2020 covers elements not covered in my initial note. Subjective: The patient was seen face to face in the evening of 06/06/2020 with Alexander HOLLINGSWORTH. Discussed with nursing staff, reviewed the chart. The patient slept 6-3/4 hours previous night. I reviewed the discharge summary from his last hospitalization. At the time of discharge he was on Depakote ER 1000 mg h.s., trazodone 50 mg h.s., Provera 2.5 mg a day. He is showing no sexually inappropriate behaviours and we will not restart Provera. Review of Systems: Ambulation impaired with walker. No CV, , pulmonary, eye system symptoms on review. Mental Status Exam: Reasonably oriented. Speech is coherent. Abstraction is fair. Computation is impaired. Language function intact. Attention span is short. Mood and affect is improved, very pleasant, verbal, interactive as I met with him in his room. No suicidal or homicidal ideation. Laboratory Data: Reviewed. Impression: Bipolar disorder mixed with psychotic features. Mild cognitive impairment. Impulse control disorder unspecified. Plan: No change from initial note. Check valproic acid level, adjust to reach therapeutic level. Consider adding atypical antipsychotic if mood lability and agitation resurfaces. Assessment: Vital Signs/I&O: Vital Signs Date Time Temp Pulse Resp B/P (MAP) Pulse Ox O2 Delivery O2 Flow Rate FiO2 06/08/20 06:06 97.5 59 18 149/68 (95) 97 06/07/20 06:00 Room Air I & O 06/07/20 06/07/20 06/08/20 15:00 23:00 07:00 Intake Total 720 ml 480 ml Balance 720 ml 480 ml Labs: Laboratory Tests Test 06/07/20 06:50 Valproic Acid Level 42 mcg/mL (50-100) L Valproic Acid Last Dose Date 06/06/20 Valproic Acid Last Dose Time 2100 Current Medications: Meds: Current Medications Medications (Trade) Dose Ordered Sig/Vicente Route PRN Reason Start Time Stop Time Status Last Admin Dose Admin Divalproex Sodium (Depakote Er) 1,250 mg QHS PO 06/07/20 21:00 06/07/20 20:12 Vitamin D (Vitamin D3) 50,000 unit WEEKLY PO 06/07/20 17:15 06/07/20 17:47 Atorvastatin Calcium (Lipitor) 10 mg QHS PO 06/07/20 21:00 06/07/20 20:12 I have reviewed the current psychotropics carefully including drug interactions. Risk benefit ratio favors no change other than as noted in my dictated progress note. Diagnosis: Problems: (1) Bipolar disorder, curr episode mixed, severe, with psychotic features (2) Anxiety disorder, unspecified (3) Major neurocognitive disorder (4) Impulse control disorder, unspecified (5) Anxiety disorder (6) Impulse control disorder (7) Schizoaffective disorder, bipolar type OBDULIA MOLINA MD Jun 08, 2020 06:41
--- NOTE | 2020-06-08 07:10 | PDOC ---
Exam Note: Jassi Note: This note is a late entry for 06/06/2020 covers elements not covered in my initial note. Subjective: The patient was seen face to face in the morning of 06/07/2020 for a treatment team meeting with Samra Forde Nikki (social sciences department chair), and Niya HOLLINGSWORTH. Discussed with nursing staff, reviewed the chart. The patient slept 6/3-4 hours previous night. The patient has been compliant with meals, not aggressive or disruptive. The patients daughter is his power of transactional attorney. She and her are physicians in [facility] and the patient states his plan is not to return to the senior living but to start living back on his own. Review of Systems: Ambulation impaired with walker. No CV, , pulmonary, eye system symptoms on review. Mental Status Exam: Reasonably oriented. I met with him in his room. He was very pleasant, verbal, interactive. Speech is coherent. Abstraction is fair. Computation is impaired. Language function intact. Attention span is short. Mood and affect is improved. No suicidal or homicidal ideation. Laboratory Data: Reviewed. Impression: Plan: Valproic acid level is 42 on Depakote ER 1000 mg h.s. We will increase to 1250 mg h.s. Check CBC, CMP, valproic acid level in 3 days. Make further adjustments as clinically indicated. Assessment: Vital Signs/I&O: Vital Signs Date Time Temp Pulse Resp B/P (MAP) Pulse Ox O2 Delivery O2 Flow Rate FiO2 06/08/20 06:06 97.5 59 18 149/68 (95) 97 06/07/20 06:00 Room Air I & O 06/07/20 06/07/20 06/08/20 14:59 22:59 06:59 Intake Total 720 ml 480 ml Balance 720 ml 480 ml Current Medications: Meds: Current Medications Medications (Trade) Dose Ordered Sig/Vicente Route PRN Reason Start Time Stop Time Status Last Admin Dose Admin Divalproex Sodium (Depakote Er) 1,250 mg QHS PO 06/07/20 21:00 06/07/20 20:12 Vitamin D (Vitamin D3) 50,000 unit WEEKLY PO 06/07/20 17:15 06/07/20 17:47 Atorvastatin Calcium (Lipitor) 10 mg QHS PO 06/07/20 21:00 06/07/20 20:12 I have reviewed the current psychotropics carefully including drug interactions. Risk benefit ratio favors no change other than as noted in my dictated progress note. Diagnosis: Problems: (1) Bipolar disorder, curr episode mixed, severe, with psychotic features (2) Major neurocognitive disorder (3) Impulse control disorder, unspecified (4) Anxiety disorder (5) Schizoaffective disorder, bipolar type (6) Impulse control disorder OBDULIA MOLINA MD Jun 08, 2020 07:10
[2020-06-08] MEDS: CALCIUM CARBONATE 500 MG TAB.CHEW PO SCH ×3 (08:57→17:25)
[2020-06-08] MEDS: ACETAMINOPHEN 500 MG TABLET PO SCH ×2 (08:57→20:51)
[2020-06-08] MEDS: amLODIPine BESYLATE 10 MG TABLET PO SCH (08:57)
[2020-06-08] MEDS: METOPROLOL SUCC 24HR ER 25 MG TAB.ER.24H. PO SCH (08:57)
[2020-06-08 16:03] VITALS: BP 142/75
[2020-06-08] MEDS: ATORVASTATIN CALCIUM 10 MG TABLET. PO SCH (20:49)
[2020-06-08] MEDS: DIVALPROEX ER 500 MG TAB.ER.24H PO SCH (20:50)
[2020-06-08] MEDS: traZODone 50 MG TABLET. PO SCH (20:51)
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
--- NOTE | 2020-06-08 21:59 | PDOC ---
Exam Note: Jassi Note: Please also refer to the separate dictated note~for this date of service dictated separately.~Patient seen individually. Discussed the patient with Nursing staff reviewed the chart.~Reviewed interim history and current functioning. Reviewed vital signs,~Labs/ Radiology~and current medications noted below. Continue current treatment with the changes noted in the dictated addendum note Assessment: Vital Signs/I&O: Vital Signs Date Time Temp Pulse Resp B/P (MAP) Pulse Ox O2 Delivery O2 Flow Rate FiO2 06/08/20 16:03 98.3 82 18 142/75 (97) 98 Room Air I & O 06/07/20 06/07/20 06/08/20 15:00 23:00 07:00 Intake Total 720 ml 480 ml Balance 720 ml 480 ml Current Medications: I have reviewed the current psychotropics carefully including drug interactions. Risk benefit ratio favors no change other than as noted in my dictated progress note. Diagnosis: Problems: (1) Schizoaffective disorder, bipolar type (2) Anxiety disorder, unspecified (3) Bipolar disorder, curr episode mixed, severe, with psychotic features (4) Major neurocognitive disorder (5) Impulse control disorder, unspecified (6) Anxiety disorder OBDULIA MOLINA MD Jun 08, 2020 21:58
[2020-06-09 05:32] VITALS: BP 130/71
[2020-06-09] MEDS: ACETAMINOPHEN 500 MG TABLET PO SCH ×2 (09:03→19:59)
[2020-06-09] MEDS: CALCIUM CARBONATE 500 MG TAB.CHEW PO SCH ×3 (09:03→17:28)
[2020-06-09] MEDS: METOPROLOL SUCC 24HR ER 25 MG TAB.ER.24H. PO SCH (09:03)
[2020-06-09] MEDS: amLODIPine BESYLATE 10 MG TABLET PO SCH (09:03)
[2020-06-09 16:19] VITALS: BP 152/94
[2020-06-09] MEDS: traZODone 50 MG TABLET. PO SCH (19:59)
[2020-06-09] MEDS: ATORVASTATIN CALCIUM 10 MG TABLET. PO SCH (20:00)
[2020-06-09] MEDS: QUEtiapine 25 MG TABLET. PO SCH (20:00)
[2020-06-09] MEDS: DIVALPROEX ER 500 MG TAB.ER.24H PO SCH (20:01)
--- NOTE | 2020-06-09 22:10 | PDOC ---
Exam Note: Jassi Note: Please also refer to the separate dictated note~for this date of service dictated separately.~Patient seen individually. Discussed the patient with Nursing staff reviewed the chart.~Reviewed interim history and current functioning. Reviewed vital signs,~Labs/ Radiology~and current medications noted below. Continue current treatment with the changes noted in the dictated addendum note Assessment: Vital Signs/I&O: Vital Signs Date Time Temp Pulse Resp B/P (MAP) Pulse Ox O2 Delivery O2 Flow Rate FiO2 06/09/20 16:19 98.5 89 19 152/94 (113) 96 06/08/20 16:03 Room Air I & O 06/08/20 06/08/20 06/09/20 15:00 23:00 07:00 Intake Total 840 ml 480 ml Balance 840 ml 480 ml Current Medications: Meds: Current Medications Medications (Trade) Dose Ordered Sig/Vicente Route PRN Reason Start Time Stop Time Status Last Admin Dose Admin Quetiapine Fumarate (SEROquel) 25 mg QHS PO 06/09/20 21:00 06/09/20 20:00 I have reviewed the current psychotropics carefully including drug interactions. Risk benefit ratio favors no change other than as noted in my dictated progress note. Diagnosis: Problems: (1) Bipolar disorder, curr episode mixed, severe, with psychotic features (2) Schizoaffective disorder, bipolar type (3) Major neurocognitive disorder (4) Impulse control disorder, unspecified (5) Impulse control disorder (6) Anxiety disorder, unspecified OBDULIA MOLINA MD Jun 09, 2020 22:10
[2020-06-10 05:38] VITALS: BP 128/74
--- NOTE | 2020-06-10 06:15 | PDOC ---
Exam Note: Jassi Note: This note is a late entry for 06/06/2020 covers elements not covered in my initial note. Subjective: The patient was seen face to face in the evening of 06/08/2020 with Niya HOLLINGSWORTH. Discussed with nursing staff, reviewed the chart. The patient slept 6-1/4 hours previous night. He has done reasonably well. Per nursing report as noted he has done well, but as I met with him in the evening, he was a little confused about his daughter being as second marriage is what he initially indicated but then on further questioning it appears this is her first marriage. He was aware she has 4 children. 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 Review of Systems: Ambulation impaired with walker. No CV, , pulmonary, eye system symptoms on review. Mental Status Exam: Reasonably oriented. He was very pleasant, interactive. Speech is coherent. Abstraction is fair. Computation is impaired. Language function intact. Attention span is short. Mood and affect is improved. No suicidal or homicidal ideation. Laboratory Data: Reviewed. Impression: Bipolar disorder mixed with psychotic features. Mild cognitive impairment. Impulse control disorder unspecified. Anxiety disorder unspecified. Plan: No change from initial note. Assessment: Vital Signs/I&O: Vital Signs Date Time Temp Pulse Resp B/P (MAP) Pulse Ox O2 Delivery O2 Flow Rate FiO2 06/10/20 05:38 97.5 66 18 128/74 (92) 98 Room Air I & O 06/09/20 06/09/20 06/10/20 15:00 23:00 07:00 Intake Total 620 ml 480 ml Balance 620 ml 480 ml Current Medications: Meds: Current Medications Medications (Trade) Dose Ordered Sig/Vicente Route PRN Reason Start Time Stop Time Status Last Admin Dose Admin Quetiapine Fumarate (SEROquel) 25 mg QHS PO 06/09/20 21:00 06/09/20 20:00 I have reviewed the current psychotropics carefully including drug interactions. Risk benefit ratio favors no change other than as noted in my dictated progress note. Diagnosis: Problems: (1) Anxiety disorder, unspecified (2) Schizoaffective disorder, bipolar type (3) Bipolar disorder, curr episode mixed, severe, with psychotic features (4) Major neurocognitive disorder (5) Impulse control disorder, unspecified (6) Impulse control disorder OBDULIA MOLINA MD Jun 10, 2020 06:15
[2020-06-10 06:29] LABS: BASO # 0.1 x10^3/uL (0.0-0.2); BASO % 1 % (0-3); EOS # 0.3 x10^3/uL (0.0-0.7); EOS % 5 % (0-3); HEMATOCRIT 40.6 % (39.0-53.0); HEMOGLOBIN 13.7 g/dL (13.0-17.5); LYMPH # 1.7 x10^3/uL (1.0-4.8); LYMPH % 30 % (24-48); MEAN CORPUSCULAR HEMOGLOBIN 31 pg (25-35); MEAN CORPUSCULAR HGB CONC 34 g/dL (31-37); MEAN CORPUSCULAR VOLUME 92 fL (79-100); MONO # 0.9 x10^3/uL (0.0-1.1); MONO % 15 % (0-9); NEUT # 2.8 x10^3uL (1.8-7.7); NEUT % 49 % (31-73); PLATELET COUNT 264 x10^3/uL (140-400); RED BLOOD COUNT 4.41 x10^6/uL (4.30-5.70); RED CELL DISTRIBUTION WIDTH 13.4 % (11.5-14.5); WHITE BLOOD COUNT 5.8 x10^3/uL (4.0-11.0)
--- NOTE | 2020-06-10 06:41 | PDOC ---
Exam Note: Jassi Note: This note is a late entry for 06/09/2020 covers elements not covered in my initial note. Subjective: The patient was seen face to face in the evening of 06/09/2020 with Niya HOLLINGSWORTH. Discussed with nursing staff, reviewed the chart. Per nursing report, the patient is somewhat delusional, suspicious previous evening. He is talking about wanting to go home, get to his girlfriend and live in the house. He slept 7-1/2 hours previous night. Review of Systems: Ambulation impaired with walker. No CV, , pulmonary, eye system symptoms on review. Mental Status Exam: Reasonably oriented. I met with him in his room. He was very pleasant, verbal, interactive, some mild short-term memory deficits. Speech is coherent. Abstraction is fair. Computation is impaired. Language function intact. Attention span is short. Mood and affect is improved. No suicidal or homicidal ideation. Laboratory Data: Reviewed. Impression: Bipolar disorder mixed with psychotic features. Mild cognitive impairment. Impulse control disorder unspecified. Anxiety disorder unspecified. Plan: Start Seroquel 25 mg h.s. for some of his delusions, psychotic symptoms. Rest unchanged for now. Assessment: Vital Signs/I&O: Vital Signs Date Time Temp Pulse Resp B/P (MAP) Pulse Ox O2 Delivery O2 Flow Rate FiO2 06/10/20 05:38 97.5 66 18 128/74 (92) 98 Room Air I & O 06/09/20 06/09/20 06/10/20 15:00 23:00 07:00 Intake Total 620 ml 480 ml Balance 620 ml 480 ml Labs: Laboratory Tests Test 06/10/20 05:55 White Blood Count 5.8 x10^3/uL (4.0-11.0) Red Blood Count 4.41 x10^6/uL (4.30-5.70) Hemoglobin 13.7 g/dL (13.0-17.5) Hematocrit 40.6 % (39.0-53.0) Mean Corpuscular Volume 92 fL (79-100) Mean Corpuscular Hemoglobin 31 pg (25-35) Mean Corpuscular Hemoglobin Concent 34 g/dL (31-37) Red Cell Distribution Width 13.4 % (11.5-14.5) Platelet Count 264 x10^3/uL (140-400) Neutrophils (%) (Auto) 49 % (31-73) Lymphocytes (%) (Auto) 30 % (24-48) Monocytes (%) (Auto) 15 % (0-9) H Eosinophils (%) (Auto) 5 % (0-3) H Basophils (%) (Auto) 1 % (0-3) Neutrophils # (Auto) 2.8 x10^3uL (1.8-7.7) Lymphocytes # (Auto) 1.7 x10^3/uL (1.0-4.8) Monocytes # (Auto) 0.9 x10^3/uL (0.0-1.1) Eosinophils # (Auto) 0.3 x10^3/uL (0.0-0.7) Basophils # (Auto) 0.1 x10^3/uL (0.0-0.2) Current Medications: Meds: Current Medications Medications (Trade) Dose Ordered Sig/Vicente Route PRN Reason Start Time Stop Time Status Last Admin Dose Admin Quetiapine Fumarate (SEROquel) 25 mg QHS PO 06/09/20 21:00 06/09/20 20:00 I have reviewed the current psychotropics carefully including drug interactions. Risk benefit ratio favors no change other than as noted in my dictated progress note. Diagnosis: Problems: (1) Person under investigation for COVID-19 (2) Anxiety disorder, unspecified (3) Bipolar disorder, curr episode mixed, severe, with psychotic features (4) Major neurocognitive disorder (5) Impulse control disorder, unspecified (6) Impulse control disorder OBDULIA MOLINA MD Jun 10, 2020 06:41
[2020-06-10 06:48] LABS: ALBUMIN 3.4 g/dL (3.4-5.0); BLOOD UREA NITROGEN 13 mg/dL (8-26); BUN/CREATININE RATIO 14 (6-20); CREATININE 0.9 mg/dL (0.7-1.3); GLUCOSE 88 mg/dL (70-99); TOTAL PROTEIN 6.9 g/dL (6.4-8.2)
[2020-06-10 06:49] LABS: ALK PHOS 97 U/L (46-116); ALT (SGPT) 36 U/L (16-63); ANION GAP 8 (6-14); AST (SGOT) 25 U/L (15-37); CARBON DIOXIDE 29 mmol/L (21-32); CHLORIDE 105 mmol/L (98-107); GFR 83.2; SODIUM 142 mmol/L (136-145); TOTAL BILIRUBIN 0.4 mg/dL (0.2-1.0)
[2020-06-10 07:04] LABS: VAL ACID 79 mcg/mL (50-100)
[2020-06-10] MEDS: METOPROLOL SUCC 24HR ER 25 MG TAB.ER.24H. PO SCH (08:05)
[2020-06-10] MEDS: CALCIUM CARBONATE 500 MG TAB.CHEW PO SCH ×3 (08:05→17:05)
[2020-06-10] MEDS: amLODIPine BESYLATE 10 MG TABLET PO SCH (08:06)
[2020-06-10] MEDS: ACETAMINOPHEN 500 MG TABLET PO SCH ×2 (08:06→20:14)
[2020-06-10] MEDS: CYCLOBENZAPRINE 10 MG TABLET. PO PRN (12:21)
[2020-06-10 15:54] VITALS: BP 128/74
[2020-06-10] MEDS: ATORVASTATIN CALCIUM 10 MG TABLET. PO SCH (20:14)
[2020-06-10] MEDS: QUEtiapine 25 MG TABLET. PO SCH (20:14)
[2020-06-10] MEDS: traZODone 50 MG TABLET. PO SCH (20:14)
[2020-06-10] MEDS: DIVALPROEX ER 500 MG TAB.ER.24H PO SCH (20:15)
--- NOTE | 2020-06-10 21:55 | PDOC ---
Exam Note: Jassi Note: Please also refer to the separate dictated note~for this date of service dictated separately.~Patient seen individually. Discussed the patient with Nursing staff reviewed the chart.~Reviewed interim history and current functioning. Reviewed vital signs,~Labs/ Radiology~and current medications noted below. Continue current treatment with the changes noted in the dictated addendum note Assessment: Vital Signs/I&O: Vital Signs Date Time Temp Pulse Resp B/P (MAP) Pulse Ox O2 Delivery O2 Flow Rate FiO2 06/10/20 15:54 97.2 83 18 128/74 (92) 97 Room Air I & O 06/09/20 06/09/20 06/10/20 14:59 22:59 06:59 Intake Total 620 ml 480 ml Balance 620 ml 480 ml Labs: Laboratory Tests Test 06/10/20 05:55 White Blood Count 5.8 x10^3/uL (4.0-11.0) Red Blood Count 4.41 x10^6/uL (4.30-5.70) Hemoglobin 13.7 g/dL (13.0-17.5) Hematocrit 40.6 % (39.0-53.0) Mean Corpuscular Volume 92 fL (79-100) Mean Corpuscular Hemoglobin 31 pg (25-35) Mean Corpuscular Hemoglobin Concent 34 g/dL (31-37) Red Cell Distribution Width 13.4 % (11.5-14.5) Platelet Count 264 x10^3/uL (140-400) Neutrophils (%) (Auto) 49 % (31-73) Lymphocytes (%) (Auto) 30 % (24-48) Monocytes (%) (Auto) 15 % (0-9) H Eosinophils (%) (Auto) 5 % (0-3) H Basophils (%) (Auto) 1 % (0-3) Neutrophils # (Auto) 2.8 x10^3uL (1.8-7.7) Lymphocytes # (Auto) 1.7 x10^3/uL (1.0-4.8) Monocytes # (Auto) 0.9 x10^3/uL (0.0-1.1) Eosinophils # (Auto) 0.3 x10^3/uL (0.0-0.7) Basophils # (Auto) 0.1 x10^3/uL (0.0-0.2) Sodium Level 142 mmol/L (136-145) Potassium Level 4.0 mmol/L (3.5-5.1) Chloride Level 105 mmol/L (98-107) Carbon Dioxide Level 29 mmol/L (21-32) Anion Gap 8 (6-14) Blood Urea Nitrogen 13 mg/dL (8-26) Creatinine 0.9 mg/dL (0.7-1.3) Estimated GFR (Cockcroft-Gault) 83.2 BUN/Creatinine Ratio 14 (6-20) Glucose Level 88 mg/dL (70-99) Calcium Level 9.0 mg/dL (8.5-10.1) Total Bilirubin 0.4 mg/dL (0.2-1.0) Aspartate Amino Transferase (AST) 25 U/L (15-37) Alanine Aminotransferase (ALT) 36 U/L (16-63) Alkaline Phosphatase 97 U/L (46-116) Total Protein 6.9 g/dL (6.4-8.2) Albumin 3.4 g/dL (3.4-5.0) Albumin/Globulin Ratio 1.0 (1.0-1.7) Valproic Acid Level 79 mcg/mL (50-100) Valproic Acid Last Dose Date 06/09/20 Valproic Acid Last Dose Time 2100 Current Medications: I have reviewed the current psychotropics carefully including drug interactions. Risk benefit ratio favors no change other than as noted in my dictated progress note. Diagnosis: Problems: (1) Anxiety disorder, unspecified (2) Bipolar disorder, curr episode mixed, severe, with psychotic features (3) Major neurocognitive disorder (4) Impulse control disorder, unspecified (5) Schizoaffective disorder, bipolar type OBDULIA MOLINA MD Jun 10, 2020 21:55
[2020-06-11 06:23] VITALS: BP 151/75
[2020-06-11] MEDS: amLODIPine BESYLATE 10 MG TABLET PO SCH (08:34)
[2020-06-11] MEDS: METOPROLOL SUCC 24HR ER 25 MG TAB.ER.24H. PO SCH (08:34)
[2020-06-11] MEDS: CALCIUM CARBONATE 500 MG TAB.CHEW PO SCH ×3 (08:34→17:45)
[2020-06-11] MEDS: ACETAMINOPHEN 500 MG TABLET PO SCH ×2 (08:34→20:01)
[2020-06-11 15:55] VITALS: BP 136/87
[2020-06-11] MEDS: traZODone 50 MG TABLET. PO SCH (20:01)
[2020-06-11] MEDS: ATORVASTATIN CALCIUM 10 MG TABLET. PO SCH (20:01)
[2020-06-11] MEDS: QUEtiapine 25 MG TABLET. PO SCH (20:01)
[2020-06-11] MEDS: CYCLOBENZAPRINE 10 MG TABLET. PO PRN (20:01)
[2020-06-11] MEDS: DIVALPROEX ER 500 MG TAB.ER.24H PO SCH (20:02)
--- NOTE | 2020-06-11 22:01 | PDOC ---
Exam Note: Jassi Note: Please also refer to the separate dictated note~for this date of service dictated separately.~Patient seen individually. Discussed the patient with Nursing staff reviewed the chart.~Reviewed interim history and current functioning. Reviewed vital signs,~Labs/ Radiology~and current medications noted below. Continue current treatment with the changes noted in the dictated addendum note Assessment: Vital Signs/I&O: Vital Signs Date Time Temp Pulse Resp B/P (MAP) Pulse Ox O2 Delivery O2 Flow Rate FiO2 06/11/20 15:55 98.4 92 18 136/87 (103) 97 Room Air I & O 06/10/20 06/10/20 06/11/20 15:00 23:00 07:00 Intake Total 225 ml 705 ml Balance 225 ml 705 ml Current Medications: I have reviewed the current psychotropics carefully including drug interactions. Risk benefit ratio favors no change other than as noted in my dictated progress note. Diagnosis: Problems: (1) Bipolar disorder, curr episode mixed, severe, with psychotic features (2) Major neurocognitive disorder (3) Impulse control disorder, unspecified (4) Anxiety disorder, unspecified (5) Schizoaffective disorder, bipolar type OBDULIA MOLINA MD Jun 11, 2020 22:01
[2020-06-12 06:26] VITALS: BP 144/83
[2020-06-12] MEDS: METOPROLOL SUCC 24HR ER 25 MG TAB.ER.24H. PO SCH (08:34)
[2020-06-12] MEDS: amLODIPine BESYLATE 10 MG TABLET PO SCH (08:34)
[2020-06-12] MEDS: ACETAMINOPHEN 500 MG TABLET PO SCH ×2 (08:34→20:13)
[2020-06-12] MEDS: CALCIUM CARBONATE 500 MG TAB.CHEW PO SCH ×3 (08:34→17:32)
[2020-06-12 15:46] VITALS: BP 124/86
[2020-06-12] MEDS: DIVALPROEX ER 500 MG TAB.ER.24H PO SCH (20:12)
[2020-06-12] MEDS: traZODone 50 MG TABLET. PO SCH (20:13)
[2020-06-12] MEDS: QUEtiapine 25 MG TABLET. PO SCH (20:13)
[2020-06-12] MEDS: ATORVASTATIN CALCIUM 10 MG TABLET. PO SCH (20:13)
--- NOTE | 2020-06-12 21:51 | PDOC ---
Exam Note: Jassi Note: Please also refer to the separate dictated note~for this date of service dictated separately.~Patient seen individually. Discussed the patient with Nursing staff reviewed the chart.~Reviewed interim history and current functioning. Reviewed vital signs,~Labs/ Radiology~and current medications noted below. Continue current treatment with the changes noted in the dictated addendum note Assessment: Vital Signs/I&O: Vital Signs Date Time Temp Pulse Resp B/P (MAP) Pulse Ox O2 Delivery O2 Flow Rate FiO2 06/12/20 15:46 98.1 100 20 124/86 (99) 96 Room Air I & O 06/11/20 06/11/20 06/12/20 15:00 23:00 07:00 Intake Total 550 ml 445 ml Balance 550 ml 445 ml Current Medications: I have reviewed the current psychotropics carefully including drug interactions. Risk benefit ratio favors no change other than as noted in my dictated progress note. Diagnosis: Problems: (1) Schizoaffective disorder, bipolar type (2) Anxiety disorder, unspecified (3) Bipolar disorder, curr episode mixed, severe, with psychotic features (4) Major neurocognitive disorder (5) Impulse control disorder, unspecified OBDULIA MOLINA MD Jun 12, 2020 21:51
[2020-06-13 05:54] VITALS: BP 132/72
--- NOTE | 2020-06-13 07:14 | PDOC ---
Exam Note: Jassi Note: This note is a late entry for 06/10/2020 covers elements not covered in my initial note. Subjective: The patient was seen face to face in the evening of 06/10/2020 with Michelle HOLLINGSWORTH. Discussed with nursing staff, reviewed the chart. The patient slept 5-1/2 hours previous night. I met with the patient in his room. Review of Systems: Ambulation impaired with walker. No CV, , pulmonary, eye system symptoms on review. Mental Status Exam: Reasonably oriented. I met with him in his room. He is very pleasant, interactive, little confused with short-term memory deficits at times, other times much better. Speech is coherent. Abstraction is fair. Computation is impaired. Language function intact. Attention span is short. Mood and affect is improved. No suicidal or homicidal ideation. Laboratory Data: Reviewed. Impression: Bipolar disorder mixed with psychotic features. Mild cognitive impairment. Impulse control disorder unspecified. Anxiety disorder unspecified. Plan: No change from initial note. Assessment: Vital Signs/I&O: Vital Signs Date Time Temp Pulse Resp B/P (MAP) Pulse Ox O2 Delivery O2 Flow Rate FiO2 06/13/20 05:54 97.4 56 18 132/72 (92) 97 06/12/20 15:46 Room Air I & O 06/12/20 06/12/20 06/13/20 15:00 23:00 07:00 Intake Total 480 ml 600 ml Balance 480 ml 600 ml Current Medications: I have reviewed the current psychotropics carefully including drug interactions. Risk benefit ratio favors no change other than as noted in my dictated progress note. Diagnosis: Problems: (1) Anxiety disorder, unspecified (2) Bipolar disorder, curr episode mixed, severe, with psychotic features (3) Major neurocognitive disorder (4) Impulse control disorder, unspecified (5) Frontotemporal dementia with behavioral disturbance (6) Schizoaffective disorder, bipolar type OBDULIA MOLINA MD Jun 13, 2020 07:14
--- NOTE | 2020-06-13 07:37 | PDOC ---
Exam Note: Jassi Note: This note is a late entry for 06/11/2020 covers elements not covered in my initial note. Subjective: The patient was seen face to face in the evening of 06/11/2020 with Vel HOLLINGSWORTH. Discussed with nursing staff, reviewed the chart. The patient slept 7 hours previous night. He remains pleasant, interactive. I met with him in his room. No behaviors noted. Review of Systems: Ambulation impaired with walker. No CV, , pulmonary, eye system symptoms on review. Mental Status Exam: Reasonably oriented. He is very pleasant, interactive, short-term memory deficits at times, other times much better. Speech is coherent. Abstraction is fair. Computation is impaired. Language function i ntact. Attention span is short. Mood and affect is improved. No suicidal or homicidal ideation. Laboratory Data: Reviewed. Impression: Bipolar disorder mixed with psychotic features. Mild cognitive impairment. Impulse control disorder unspecified. Anxiety disorder unspecified. Plan: No change from initial note. Assessment: Vital Signs/I&O: Vital Signs Date Time Temp Pulse Resp B/P (MAP) Pulse Ox O2 Delivery O2 Flow Rate FiO2 06/13/20 05:54 97.4 56 18 132/72 (92) 97 06/12/20 15:46 Room Air I & O 06/12/20 06/12/20 06/13/20 15:00 23:00 07:00 Intake Total 480 ml 600 ml Balance 480 ml 600 ml Current Medications: I have reviewed the current psychotropics carefully including drug interactions. Risk benefit ratio favors no change other than as noted in my dictated progress note. Diagnosis: Problems: (1) Schizoaffective disorder, bipolar type (2) Anxiety disorder, unspecified (3) Bipolar disorder, curr episode mixed, severe, with psychotic features (4) Major neurocognitive disorder (5) Impulse control disorder, unspecified (6) Frontotemporal dementia with behavioral disturbance OBDULIA MOLINA MD Jun 13, 2020 07:37
--- NOTE | 2020-06-13 07:57 | PDOC ---
Exam Note: Jassi Note: This note is a late entry for 06/12/2020 covers elements not covered in my initial note. Subjective: The patient was seen face to face in the evening of 06/12/2020 with Diego HOLLINGSWORTH. Discussed with nursing staff, reviewed the chart. The patient slept 7 hours previous night. He has been somewhat isolative, withdrawn, but not agitated or aggressive. Review of Systems: Ambulation impaired with walker. No CV, , pulmonary, eye system symptoms on review. Mental Status Exam: Reasonably oriented. I met with him in his room in the evening of 06/12. Speech is coherent. Abstraction is fair. Computation is impaired. Language function intact. Attention span is short. Mood and affect is improved. No suicidal or homicidal ideation. Laboratory Data: Reviewed. Impression: Bipolar disorder mixed with psychotic features. Mild cognitive impairment. Impulse control disorder unspecified. Anxiety disorder unspecified. Plan: No change from initial note. Assessment: Vital Signs/I&O: Vital Signs Date Time Temp Pulse Resp B/P (MAP) Pulse Ox O2 Delivery O2 Flow Rate FiO2 06/13/20 05:54 97.4 56 18 132/72 (92) 97 06/12/20 15:46 Room Air I & O 06/12/20 06/12/20 06/13/20 15:00 23:00 07:00 Intake Total 480 ml 600 ml Balance 480 ml 600 ml Current Medications: I have reviewed the current psychotropics carefully including drug interactions. Risk benefit ratio favors no change other than as noted in my dictated progress note. Diagnosis: Problems: (1) Bipolar disorder, curr episode mixed, severe, with psychotic features (2) Anxiety disorder, unspecified (3) Major neurocognitive disorder (4) Impulse control disorder, unspecified (5) Frontotemporal dementia with behavioral disturbance (6) Schizoaffective disorder, bipolar type OBDULIA MOLINA MD Jun 13, 2020 07:56
[2020-06-13] MEDS: CALCIUM CARBONATE 500 MG TAB.CHEW PO SCH ×3 (08:58→16:22)
[2020-06-13] MEDS: ACETAMINOPHEN 500 MG TABLET PO SCH ×2 (08:58→20:06)
[2020-06-13] MEDS: METOPROLOL SUCC 24HR ER 25 MG TAB.ER.24H. PO SCH (08:59)
[2020-06-13] MEDS: amLODIPine BESYLATE 10 MG TABLET PO SCH (08:59)
[2020-06-13 16:00] VITALS: BP 148/86
[2020-06-13] MEDS: DIVALPROEX ER 500 MG TAB.ER.24H PO SCH (20:06)
[2020-06-13] MEDS: ATORVASTATIN CALCIUM 10 MG TABLET. PO SCH (20:07)
[2020-06-13] MEDS: traZODone 50 MG TABLET. PO SCH (20:07)
[2020-06-13] MEDS: QUEtiapine 25 MG TABLET. PO SCH (20:07)
--- NOTE | 2020-06-13 20:53 | PDOC ---
Exam Note: Jassi Note: Please also refer to the separate dictated note~for this date of service dictated separately.~Patient seen individually. Discussed the patient with Nursing staff reviewed the chart.~Reviewed interim history and current functioning. Reviewed vital signs,~Labs/ Radiology~and current medications noted below. Continue current treatment with the changes noted in the dictated addendum note Assessment: Vital Signs/I&O: Vital Signs Date Time Temp Pulse Resp B/P (MAP) Pulse Ox O2 Delivery O2 Flow Rate FiO2 06/13/20 16:00 98.2 81 20 148/86 (106) 96 Room Air I & O 06/12/20 06/12/20 06/13/20 15:00 23:00 07:00 Intake Total 480 ml 600 ml Balance 480 ml 600 ml Current Medications: I have reviewed the current psychotropics carefully including drug interactions. Risk benefit ratio favors no change other than as noted in my dictated progress note. Diagnosis: Problems: (1) Schizoaffective disorder, bipolar type (2) Anxiety disorder, unspecified (3) Bipolar disorder, curr episode mixed, severe, with psychotic features (4) Major neurocognitive disorder (5) Impulse control disorder, unspecified (6) Frontotemporal dementia with behavioral disturbance OBDULIA MOLINA MD Jun 13, 2020 20:53
[2020-06-14 06:05] VITALS: BP 153/71
[2020-06-14] MEDS: amLODIPine BESYLATE 10 MG TABLET PO SCH (08:03)
[2020-06-14] MEDS: METOPROLOL SUCC 24HR ER 25 MG TAB.ER.24H. PO SCH (08:03)
[2020-06-14] MEDS: CALCIUM CARBONATE 500 MG TAB.CHEW PO SCH ×3 (08:03→17:21)
[2020-06-14] MEDS: ACETAMINOPHEN 500 MG TABLET PO SCH ×2 (08:03→20:16)
[2020-06-14] MEDS: CHOLECALCIFEROL (VITAMIN D3) 50,000 UNIT CAPSULE PO SCH (08:08)
--- NOTE | 2020-06-14 13:07 | TX PLAN ---
Interdisciplinary Tx Plan Admission Information Jun 05, 2020 at 15:05 Legal Status (on Admission): Voluntary DPOA/Guardian Name: Adriana Olsen (Katy) Contact Other Contact Name: [facility] Other Contact Verified Code Status: Full Code Allergies: Coded Allergies: ramipril (Verified Allergy, Mild, Hives, 02/23/20) HANK Inhibitors (Verified Allergy, Unknown, 02/23/20) rifampin (Verified Allergy, Unknown, 02/23/20) Diagnoses Primary Diagnosis: Major Neurocognitive D/O Reasons for Admission: Aggressive, Relation/conflict, Agitated, Combative, Poor impulse control Problem in Patient's Words: Pt periodically has episodes with other residents Additional Admission Comments: According to the intake, pt was combative with another peer, pt hit the peer and threatens the peer. Pt is agitated. Problems Active Problems: Impulsive Poor boundaries Inactive Problems: Medication compliance Group participation Pt Strengths/Limitations Ability for [place]: Poor Cognitive Functioning/Ability: Fair Communication Skills/Ability: Fair Financial Resources: Fair Insight/Judgement: Poor Intellectual Ability: Fair Physical Health: Fair Social Skills: Poor Stability in Family: Good Stability in School/Work: Poor Verbal Skills: Fair Discharge Criteria Discharge Criteria: No need for close observ., Adequate arrangements @DC, Improved behavior, Improved mood/thought Preliminary Discharge Plan Preliminary DC Plan: Current Living Arrange. Special Precautions Fall Risk: Low Initial D/C Plan At this time, pt will discharge back [facility] once stable. Identified Discharge Needs: Referral for psychiatry Currently Utilized Resources Currently Utilized Resources/P: Primary Care Physician Referrals Community Resources: Psychiatry services Identified Problems/Hx/Goals Objectives/Short-Term Goals Short Term Goals: Dec. Aggression, Dec. Outbursts, Improved Social Skills, Medication Stabilization, Monitor Med Effects Short Term Goals in Patient's: I want to go back to my own home. Interventions/Frequency Staff Interventions/Frequency&: Psychiatrist to assess pt at least 3x per week for medication management. Social Work to assess pt at least 2x per week for discharge planning and attention to barriers. Nursing to assess medications, manage behaviors and complete 15 minute checks on pt once stable. Encourage group participation in activities (if applicable) or 1:1 engagement based of the activity dept assessment. 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 Education: Pt graduated High school (12th grade) Community Follow-up Primary Care Physician Community Provider/Family Inpu: He just gets fixated on one thing about another resident and his behaviors increase with that person over time. Treatment Plan Explained Patient/Crown Blocker had this treatment plan explained to him/her as indicated by the signature below and has been given the opportunity to ask questions and make suggestions: Date: Patient/Crown Blocker Signature: Status Update Update Team attempted to reach pt dtr, [place], to participate via telephone and was not able to connect. Pt is eating 100% of meals and sleeping on average 7 hours per night. Pt tends to be withdrawn to his room and is attending minimal groups. Pt did refuse to shower this morning and reports that he is adamant on leaving and using his thumb to catch a ride back to [place], [place] where he lived prior to placement. SW was verbally told by staff that pt attempted to pick on another peer but was able to be redirected to return back to his room (unknown if there is a note in his chart of this incident). Pt also randomly asked the activities staff to come live with him as he has kids and needs help. Pt is currently taking Depakote, Seroquel and Trazodone with no concerns. [facility] will continue to work with pt dtr and the facility on releasing pt within the beginning of next week. CLEMENT LANIER Jun 14, 2020 13:07
[2020-06-14 15:59] VITALS: BP 155/93
[2020-06-14] MEDS: QUEtiapine 25 MG TABLET. PO SCH (20:15)
[2020-06-14] MEDS: DIVALPROEX ER 500 MG TAB.ER.24H PO SCH (20:16)
[2020-06-14] MEDS: traZODone 50 MG TABLET. PO SCH (20:17)
[2020-06-14] MEDS: ATORVASTATIN CALCIUM 10 MG TABLET. PO SCH (20:17)
--- NOTE | 2020-06-14 21:13 | PDOC ---
Exam Note: Jassi Note: Please also refer to the separate dictated note~for this date of service dictated separately.~Patient seen individually. Discussed the patient with Nursing staff reviewed the chart.~Reviewed interim history and current functioning. Reviewed vital signs,~Labs/ Radiology~and current medications noted below. Continue current treatment with the changes noted in the dictated addendum note Assessment: Vital Signs/I&O: Vital Signs Date Time Temp Pulse Resp B/P (MAP) Pulse Ox O2 Delivery O2 Flow Rate FiO2 06/14/20 15:59 97.6 65 18 155/93 (113) 99 06/13/20 16:00 Room Air I & O 06/13/20 06/13/20 06/14/20 15:00 23:00 07:00 Intake Total 720 ml 480 ml Balance 720 ml 480 ml Current Medications: I have reviewed the current psychotropics carefully including drug interactions. Risk benefit ratio favors no change other than as noted in my dictated progress note. Diagnosis: Problems: (1) Bipolar disorder, curr episode mixed, severe, with psychotic features (2) Major neurocognitive disorder (3) Impulse control disorder, unspecified (4) Frontotemporal dementia with behavioral disturbance (5) Schizoaffective disorder, bipolar type (6) Anxiety disorder, unspecified OBDULIA MOLINA MD Jun 14, 2020 21:13
[2020-06-15 06:24] VITALS: BP 136/79
--- NOTE | 2020-06-15 07:58 | PDOC ---
Exam Note: Jassi Note: This note is a late entry for 06/13/2020 covers elements not covered in my initial note. Subjective: The patient was reviewed on telehealth rounds in the evening of 06/13/2020 with Tennille HOLLINGSWORTH. Discussed with nursing staff, reviewed the chart. The patient slept 7-1/2 hours previous night. He has been talking about hitchhiking to a place where he wants to live with his girlfriend. I addressed this with him individually. Review of Systems: Ambulation impaired with walker. No CV, , pulmonary, eye system symptoms on review. Mental Status Exam: Reasonably oriented. I met with him in his room. He is quite verbal, interactive, little forgetful at times. Speech is coherent. Abstraction is fair. Computation is impaired. Language function intact. Attention span is short. Mood and affect is improved. No suicidal or homicidal ideation. Laboratory Data: Reviewed. Impression: Bipolar disorder mixed with psychotic features. Mild cognitive impairment. Impulse control disorder unspecified. Anxiety disorder unspecified. Plan: No change from initial note. Assessment: Vital Signs/I&O: Vital Signs Date Time Temp Pulse Resp B/P (MAP) Pulse Ox O2 Delivery O2 Flow Rate FiO2 06/15/20 06:24 97.9 61 20 136/79 (98) 96 06/13/20 16:00 Room Air I & O 06/14/20 06/14/20 06/15/20 15:00 23:00 07:00 Intake Total 720 ml 480 ml Balance 720 ml 480 ml Current Medications: I have reviewed the current psychotropics carefully including drug interactions. Risk benefit ratio favors no change other than as noted in my dictated progress note. Diagnosis: Problems: (1) Bipolar disorder, curr episode mixed, severe, with psychotic features (2) Major neurocognitive disorder (3) Impulse control disorder, unspecified (4) Anxiety disorder, unspecified (5) Impulse control disorder OBDULIA MOLINA MD Jun 15, 2020 07:58
--- NOTE | 2020-06-15 08:13 | PDOC ---
Exam Note: Jassi Note: This note is a late entry for 06/14/2020 covers elements not covered in my initial note. Subjective: The patient was seen face to face in the morning of 06/14/2020 for treatment team meeting with Samra Forde, and Shirin (social service staff), Rosana (activity therapy), and Niya HOLLINGSWORTH. Discussed with nursing staff, reviewed the chart. The patient slept 7 hours previous night. No behaviors noted. He was agitated with another psychotic patient with this other patient, can be somewhat disruptive at times. I processed this with the patient. We did try to call the patients daughter Pennie who was his guardian to join us in the treatment team meeting but she was unavailable. Review of Systems: Ambulation impaired with walker. No CV, , pulmonary, eye system symptoms on review. Mental Status Exam: Reasonably oriented. I met with him in his room in the evening. He was quite verbal, interactive, stated he is doing well. Speech is coherent. Abstraction is fair. Computation is impaired. Language function intact. Attention span is short. Mood and affect is improved. No suicidal or homicidal ideation. Laboratory Data: Reviewed. Impression: Bipolar disorder mixed with psychotic features. Mild cognitive impairment. Impulse control disorder unspecified. Anxiety disorder unspecified. Plan: No change from initial note. Assessment: Vital Signs/I&O: Vital Signs Date Time Temp Pulse Resp B/P (MAP) Pulse Ox O2 Delivery O2 Flow Rate FiO2 06/15/20 06:24 97.9 61 20 136/79 (98) 96 06/13/20 16:00 Room Air I & O 06/14/20 06/14/20 06/15/20 14:59 22:59 06:59 Intake Total 720 ml 480 ml Balance 720 ml 480 ml Current Medications: I have reviewed the current psychotropics carefully including drug interactions. Risk benefit ratio favors no change other than as noted in my dictated progress note. Diagnosis: Problems: (1) Bipolar disorder, curr episode mixed, severe, with psychotic features (2) Major neurocognitive disorder (3) Impulse control disorder, unspecified (4) Anxiety disorder, unspecified OBDULIA MOLINA MD Jun 15, 2020 08:13
[2020-06-15] MEDS: amLODIPine BESYLATE 10 MG TABLET PO SCH (08:31)
[2020-06-15] MEDS: CALCIUM CARBONATE 500 MG TAB.CHEW PO SCH ×3 (08:31→17:02)
[2020-06-15] MEDS: ACETAMINOPHEN 500 MG TABLET PO SCH ×2 (08:31→20:19)
[2020-06-15] MEDS: METOPROLOL SUCC 24HR ER 25 MG TAB.ER.24H. PO SCH (08:31)
[2020-06-15 16:02] VITALS: BP 130/87
[2020-06-15] MEDS: DIVALPROEX ER 250 MG TAB.ER.24H. PO SCH (20:19)
[2020-06-15] MEDS: DIVALPROEX ER 500 MG TAB.ER.24H PO SCH (20:19)
[2020-06-15] MEDS: ATORVASTATIN CALCIUM 10 MG TABLET. PO SCH (20:20)
[2020-06-15] MEDS: traZODone 50 MG TABLET. PO SCH (20:20)
[2020-06-15] MEDS: QUEtiapine 25 MG TABLET. PO SCH (20:20)
--- NOTE | 2020-06-15 20:41 | PDOC ---
Exam Note: Jassi Note: Please also refer to the separate dictated note~for this date of service dictated separately.~Patient seen individually. Discussed the patient with Nursing staff reviewed the chart.~Reviewed interim history and current functioning. Reviewed vital signs,~Labs/ Radiology~and current medications noted below. Continue current treatment with the changes noted in the dictated addendum note Assessment: Vital Signs/I&O: Vital Signs Date Time Temp Pulse Resp B/P (MAP) Pulse Ox O2 Delivery O2 Flow Rate FiO2 06/15/20 16:02 98.0 86 17 130/87 (101) 97 06/13/20 16:00 Room Air I & O 06/14/20 06/14/20 06/15/20 15:00 23:00 07:00 Intake Total 720 ml 480 ml Balance 720 ml 480 ml Current Medications: Meds: Current Medications Medications (Trade) Dose Ordered Sig/Vicente Route PRN Reason Start Time Stop Time Status Last Admin Dose Admin Divalproex Sodium (Depakote Er) 250 mg QHS PO 06/15/20 21:00 06/15/20 20:19 Divalproex Sodium (Depakote Er) 1,000 mg QHS PO 06/15/20 21:00 06/15/20 20:19 I have reviewed the current psychotropics carefully including drug interactions. Risk benefit ratio favors no change other than as noted in my dictated progress note. Diagnosis: Problems: (1) Bipolar disorder, curr episode mixed, severe, with psychotic features (2) Major neurocognitive disorder (3) Impulse control disorder, unspecified (4) Impulse control disorder (5) Anxiety disorder, unspecified (6) Schizoaffective disorder, bipolar type OBDULIA MOLINA MD Jun 15, 2020 20:41
[2020-06-16 05:38] VITALS: BP 143/79
[2020-06-16] MEDS: METOPROLOL SUCC 24HR ER 25 MG TAB.ER.24H. PO SCH (09:10)
[2020-06-16] MEDS: CALCIUM CARBONATE 500 MG TAB.CHEW PO SCH ×3 (09:10→17:20)
[2020-06-16] MEDS: amLODIPine BESYLATE 10 MG TABLET PO SCH (09:10)
[2020-06-16] MEDS: ACETAMINOPHEN 500 MG TABLET PO SCH ×2 (09:10→19:52)
[2020-06-16 16:25] VITALS: BP 136/82
[2020-06-16] MEDS: QUEtiapine 25 MG TABLET. PO SCH (19:54)
[2020-06-16] MEDS: DIVALPROEX ER 250 MG TAB.ER.24H. PO SCH (19:54)
[2020-06-16] MEDS: DIVALPROEX ER 500 MG TAB.ER.24H PO SCH (19:54)
[2020-06-16] MEDS: traZODone 50 MG TABLET. PO SCH (19:54)
[2020-06-16] MEDS: ATORVASTATIN CALCIUM 10 MG TABLET. PO SCH (19:54)
--- NOTE | 2020-06-16 20:38 | PDOC ---
Exam Note: Jassi Note: Please also refer to the separate dictated note~for this date of service dictated separately.~Patient seen individually. Discussed the patient with Nursing staff reviewed the chart.~Reviewed interim history and current functioning. Reviewed vital signs,~Labs/ Radiology~and current medications noted below. Continue current treatment with the changes noted in the dictated addendum note Assessment: Vital Signs/I&O: Vital Signs Date Time Temp Pulse Resp B/P (MAP) Pulse Ox O2 Delivery O2 Flow Rate FiO2 06/16/20 16:25 98.1 84 19 136/82 (100) 95 06/13/20 16:00 Room Air I & O 06/15/20 06/15/20 06/16/20 15:00 23:00 07:00 Intake Total 840 ml 120 ml Balance 840 ml 120 ml Current Medications: Meds: Current Medications Medications (Trade) Dose Ordered Sig/Vicente Route PRN Reason Start Time Stop Time Status Last Admin Dose Admin Divalproex Sodium (Depakote Er) 250 mg QHS PO 06/15/20 21:00 06/16/20 19:54 Divalproex Sodium (Depakote Er) 1,000 mg QHS PO 06/15/20 21:00 06/16/20 19:54 I have reviewed the current psychotropics carefully including drug interactions. Risk benefit ratio favors no change other than as noted in my dictated progress note. Diagnosis: Problems: (1) Bipolar disorder, curr episode mixed, severe, with psychotic features (2) Major neurocognitive disorder (3) Impulse control disorder, unspecified (4) Impulse control disorder (5) Schizoaffective disorder, bipolar type OBDULIA MOLINA MD Jun 16, 2020 20:37
[2020-06-17 06:22] VITALS: BP 132/67
--- NOTE | 2020-06-17 06:52 | PDOC ---
Exam Note: Jassi Note: This note is a late entry for 06/15/2020 covers elements not covered in my initial note. Subjective: The patient was seen face to face in the evening of 06/15/2020 with Niya HOLLINGSWORTH. Discussed with nursing staff, reviewed the chart. The patient slept 6-3/4 hours previous night. No behaviors have been noted. Review of Systems: Ambulation impaired with walker. No CV, , pulmonary, eye system symptoms on review. Mental Status Exam: Reasonably oriented. I met with him in his room in the evening. He was quite verbal, interactive. Speech is coherent. Abstraction is fair. Computation is impaired. Language function intact. Attention span is short. Mood and affect is improved. No suicidal or homicidal ideation. Laboratory Data: Reviewed. Impression: Bipolar disorder mixed with psychotic features. Mild cognitive impairment. Impulse control disorder unspecified. Anxiety disorder unspecified. Plan: No change from initial note. Assessment: Vital Signs/I&O: Vital Signs Date Time Temp Pulse Resp B/P (MAP) Pulse Ox O2 Delivery O2 Flow Rate FiO2 06/17/20 06:22 97.2 54 18 132/67 (88) 96 06/13/20 16:00 Room Air I & O 06/16/20 06/16/20 06/17/20 14:59 22:59 06:59 Intake Total 840 ml 480 ml Balance 840 ml 480 ml Current Medications: I have reviewed the current psychotropics carefully including drug interactions. Risk benefit ratio favors no change other than as noted in my dictated progress note. Diagnosis: Problems: (1) Anxiety disorder, unspecified (2) Bipolar disorder, curr episode mixed, severe, with psychotic features (3) Major neurocognitive disorder (4) Impulse control disorder, unspecified (5) Person under investigation for COVID-19 OBDULIA MOLINA MD Jun 17, 2020 06:51
--- NOTE | 2020-06-17 07:24 | PDOC ---
Exam Note: Jassi Note: This note is a late entry for 06/16/2020 covers elements not covered in my initial note. Subjective: The patient was seen face to face in the evening of 06/16/2020 with Niya HOLLINGSWORTH. Discussed with nursing staff, reviewed the chart. He slept 7-1/4 hours previous night. He is overall doing well. Review of Systems: Ambulation impaired with walker. No CV, , pulmonary, eye system symptoms on review. Mental Status Exam: Reasonably oriented. I met with him in his room in the evening. He is somewhat withdrawn. He is wanting to go home. We discussed appropriate discharge plans. Abstraction is fair. Computation is impaired. Language function intact. Attention span is short. Mood and affect is improved. No suicidal or homicidal ideation. Laboratory Data: Reviewed. Impression: Bipolar disorder mixed with psychotic features. Mild cognitive impairment. Impulse control disorder unspecified. Anxiety disorder unspecified. Plan: No change from initial note. Assessment: Vital Signs/I&O: Vital Signs Date Time Temp Pulse Resp B/P (MAP) Pulse Ox O2 Delivery O2 Flow Rate FiO2 06/17/20 06:22 97.2 54 18 132/67 (88) 96 06/13/20 16:00 Room Air I & O 06/16/20 06/16/20 06/17/20 14:59 22:59 06:59 Intake Total 840 ml 480 ml Balance 840 ml 480 ml Current Medications: I have reviewed the current psychotropics carefully including drug interactions. Risk benefit ratio favors no change other than as noted in my dictated progress note. Diagnosis: Problems: (1) Bipolar disorder, curr episode mixed, severe, with psychotic features (2) Major neurocognitive disorder (3) Impulse control disorder, unspecified (4) Schizoaffective disorder, bipolar type OBDULIA MOLINA MD Jun 17, 2020 07:24
[2020-06-17] MEDS: CALCIUM CARBONATE 500 MG TAB.CHEW PO SCH ×3 (08:40→17:30)
[2020-06-17] MEDS: ACETAMINOPHEN 500 MG TABLET PO SCH ×2 (08:40→19:38)
[2020-06-17] MEDS: METOPROLOL SUCC 24HR ER 25 MG TAB.ER.24H. PO SCH (08:41)
[2020-06-17] MEDS: amLODIPine BESYLATE 10 MG TABLET PO SCH (08:41)
[2020-06-17 16:15] VITALS: BP 133/72
[2020-06-17] MEDS: traZODone 50 MG TABLET. PO SCH (19:38)
[2020-06-17] MEDS: DIVALPROEX ER 500 MG TAB.ER.24H PO SCH (19:39)
[2020-06-17] MEDS: QUEtiapine 25 MG TABLET. PO SCH (19:39)
[2020-06-17] MEDS: ATORVASTATIN CALCIUM 10 MG TABLET. PO SCH (19:39)
[2020-06-17] MEDS: DIVALPROEX ER 250 MG TAB.ER.24H. PO SCH (19:39)
--- NOTE | 2020-06-17 20:50 | PDOC ---
Exam Note: Jassi Note: Please also refer to the separate dictated note~for this date of service dictated separately.~Patient seen individually. Discussed the patient with Nursing staff reviewed the chart.~Reviewed interim history and current functioning. Reviewed vital signs,~Labs/ Radiology~and current medications noted below. Continue current treatment with the changes noted in the dictated addendum note Assessment: Vital Signs/I&O: Vital Signs Date Time Temp Pulse Resp B/P (MAP) Pulse Ox O2 Delivery O2 Flow Rate FiO2 06/17/20 16:15 98.2 84 18 133/72 (92) 95 06/13/20 16:00 Room Air I & O 06/16/20 06/16/20 06/17/20 14:59 22:59 06:59 Intake Total 840 ml 480 ml Balance 840 ml 480 ml Current Medications: I have reviewed the current psychotropics carefully including drug interactions. Risk benefit ratio favors no change other than as noted in my dictated progress note. Diagnosis: Problems: (1) Bipolar disorder, curr episode mixed, severe, with psychotic features (2) Anxiety disorder, unspecified (3) Schizoaffective disorder, bipolar type (4) Major neurocognitive disorder (5) Impulse control disorder, unspecified OBDULIA MOLINA MD Jun 17, 2020 20:50
[2020-06-18 05:58] VITALS: BP 108/69
[2020-06-18] MEDS: ACETAMINOPHEN 500 MG TABLET PO SCH ×2 (08:39→20:27)
[2020-06-18] MEDS: METOPROLOL SUCC 24HR ER 25 MG TAB.ER.24H. PO SCH (08:40)
[2020-06-18] MEDS: amLODIPine BESYLATE 10 MG TABLET PO SCH (08:40)
[2020-06-18] MEDS: CALCIUM CARBONATE 500 MG TAB.CHEW PO SCH ×3 (08:40→17:33)
[2020-06-18 15:56] VITALS: BP 135/85
[2020-06-18] MEDS: DIVALPROEX ER 250 MG TAB.ER.24H. PO SCH (20:26)
[2020-06-18] MEDS: traZODone 50 MG TABLET. PO SCH (20:27)
[2020-06-18] MEDS: DIVALPROEX ER 500 MG TAB.ER.24H PO SCH (20:27)
[2020-06-18] MEDS: QUEtiapine 25 MG TABLET. PO SCH (20:27)
[2020-06-18] MEDS: ATORVASTATIN CALCIUM 10 MG TABLET. PO SCH (20:28)
--- NOTE | 2020-06-18 20:59 | PDOC ---
Exam Note: Jassi Note: Please also refer to the separate dictated note~for this date of service dictated separately.~Patient seen individually. Discussed the patient with Nursing staff reviewed the chart.~Reviewed interim history and current functioning. Reviewed vital signs,~Labs/ Radiology~and current medications noted below. Continue current treatment with the changes noted in the dictated addendum note Assessment: Vital Signs/I&O: Vital Signs Date Time Temp Pulse Resp B/P (MAP) Pulse Ox O2 Delivery O2 Flow Rate FiO2 06/18/20 15:56 97.9 87 16 135/85 (102) 95 06/18/20 05:58 Room Air I & O 06/17/20 06/17/20 06/18/20 14:59 22:59 06:59 Intake Total 360 ml 360 ml Balance 360 ml 360 ml Current Medications: I have reviewed the current psychotropics carefully including drug interactions. Risk benefit ratio favors no change other than as noted in my dictated progress note. Diagnosis: Problems: (1) Schizoaffective disorder, bipolar type (2) Anxiety disorder, unspecified (3) Bipolar disorder, curr episode mixed, severe, with psychotic features (4) Major neurocognitive disorder (5) Impulse control disorder, unspecified OBDULIA MOLINA MD Jun 18, 2020 20:59
[2020-06-19 06:00] VITALS: BP 138/87
[2020-06-19] MEDS: ACETAMINOPHEN 500 MG TABLET PO SCH ×2 (07:49→20:33)
[2020-06-19] MEDS: amLODIPine BESYLATE 10 MG TABLET PO SCH (07:49)
[2020-06-19] MEDS: METOPROLOL SUCC 24HR ER 25 MG TAB.ER.24H. PO SCH (07:50)
[2020-06-19] MEDS: CALCIUM CARBONATE 500 MG TAB.CHEW PO SCH ×2 (07:50→11:28)
[2020-06-19 14:32] VITALS: BP 118/76
[2020-06-19] MEDS: DIVALPROEX ER 250 MG TAB.ER.24H. PO SCH (20:32)
[2020-06-19] MEDS: QUEtiapine 25 MG TABLET. PO SCH (20:33)
[2020-06-19] MEDS: DIVALPROEX ER 500 MG TAB.ER.24H PO SCH (20:33)
[2020-06-19] MEDS: ATORVASTATIN CALCIUM 10 MG TABLET. PO SCH (20:33)
[2020-06-19] MEDS: traZODone 50 MG TABLET. PO SCH (20:33)
--- NOTE | 2020-06-19 20:52 | PDOC ---
Exam Note: Jassi Note: Please also refer to the separate dictated note~for this date of service dictated separately.~Patient seen individually. Discussed the patient with Nursing staff reviewed the chart.~Reviewed interim history and current functioning. Reviewed vital signs,~Labs/ Radiology~and current medications noted below. Continue current treatment with the changes noted in the dictated addendum note Assessment: Vital Signs/I&O: Vital Signs Date Time Temp Pulse Resp B/P (MAP) Pulse Ox O2 Delivery O2 Flow Rate FiO2 06/19/20 14:32 98.3 96 18 118/76 (90) 95 06/19/20 06:00 Room Air I & O 06/18/20 06/18/20 06/19/20 15:00 23:00 07:00 Intake Total 650 ml 900 ml Balance 650 ml 900 ml Current Medications: I have reviewed the current psychotropics carefully including drug interactions. Risk benefit ratio favors no change other than as noted in my dictated progress note. Diagnosis: Problems: (1) Bipolar disorder, curr episode mixed, severe, with psychotic features (2) Major neurocognitive disorder (3) Impulse control disorder, unspecified (4) Schizoaffective disorder, bipolar type (5) Anxiety disorder, unspecified OBDULIA MOLINA MD Jun 19, 2020 20:52
[2020-06-20 06:29] VITALS: BP 148/87
--- NOTE | 2020-06-20 07:13 | PDOC ---
Exam Note: Jassi Note: This note is a late entry for 06/17/2020 covers elements not covered in my initial note. Subjective: The patient was seen face to face in the evening of 06/17/2020 with Vel HOLLINGSWORTH. Discussed with nursing staff, reviewed the chart. He slept 7-1/2 hours previous night. Review of Systems: Ambulation impaired with walker. No CV, , pulmonary, eye system symptoms on review. Mental Status Exam: Reasonably oriented. He was pleasant, verbal, interactive, quite appropriate. We discussed appropriate discharge plans. Abstraction is fair. Computation is impaired. Language function intact. Attention span is short. Mood and affect is improved. No suicidal or homicidal ideation. Laboratory Data: Reviewed. Impression: Bipolar disorder mixed with psychotic features. Mild cognitive impairment. Impulse control disorder unspecified. Anxiety disorder unspecified. Plan: No change from initial note. Assessment: Vital Signs/I&O: Vital Signs Date Time Temp Pulse Resp B/P (MAP) Pulse Ox O2 Delivery O2 Flow Rate FiO2 06/20/20 06:29 97.8 62 16 148/87 (107) 96 06/19/20 06:00 Room Air I & O 06/19/20 06/19/20 06/20/20 15:00 23:00 07:00 Intake Total 240 ml 600 ml Balance 240 ml 600 ml Current Medications: I have reviewed the current psychotropics carefully including drug interactions. Risk benefit ratio favors no change other than as noted in my dictated progress note. Diagnosis: Problems: (1) Schizoaffective disorder, bipolar type (2) Anxiety disorder, unspecified (3) Bipolar disorder, curr episode mixed, severe, with psychotic features (4) Major neurocognitive disorder (5) Impulse control disorder, unspecified OBDULIA MOLINA MD Jun 20, 2020 07:13
[2020-06-20] MEDS: CALCIUM CARBONATE 500 MG TAB.CHEW PO SCH (07:25)
--- NOTE | 2020-06-20 07:32 | PDOC ---
Exam Note: Jassi Note: This note is a late entry for 06/18/2020 covers elements not covered in my initial note. Subjective: The patient was seen face to face in the evening of 06/18/2020 with Vel HOLLINGSWORTH. Discussed with nursing staff, reviewed the chart. The patient is doing better. I met with him in his room. He was angry at lunch time with one of the other patients who was singing, somewhat intrusively. We discussed ways to help reduce his agitation, irritability and he was compliant with this. Also discussed whether his daughter had called him and he had no contact with her. He seemed to accept this reasonably well. The patient slept 6-1/2 hours previous night. Review of Systems: Ambulation impaired with walker. No CV, , pulmonary, eye system symptoms on review. Mental Status Exam: Reasonably oriented. Speech is coherent. Abstraction is fair. Computation is impaired. Language function intact. Attention span is short. Mood and affect is improved. No suicidal or homicidal ideation. Laboratory Data: Reviewed. Impression: Bipolar disorder mixed with psychotic features. Mild cognitive impairment. Impulse control disorder unspecified. Anxiety disorder unspecified. Plan: No change from initial note. Assessment: Vital Signs/I&O: Vital Signs Date Time Temp Pulse Resp B/P (MAP) Pulse Ox O2 Delivery O2 Flow Rate FiO2 06/20/20 06:29 97.8 62 16 148/87 (107) 96 06/19/20 06:00 Room Air I & O 06/19/20 06/19/20 06/20/20 15:00 23:00 07:00 Intake Total 240 ml 600 ml Balance 240 ml 600 ml Current Medications: I have reviewed the current psychotropics carefully including drug interactions. Risk benefit ratio favors no change other than as noted in my dictated progress note. Diagnosis: Problems: (1) Schizoaffective disorder, bipolar type (2) Anxiety disorder, unspecified (3) Bipolar disorder, curr episode mixed, severe, with psychotic features (4) Major neurocognitive disorder (5) Impulse control disorder, unspecified OBDULIA MOLINA MD Jun 20, 2020 07:32
--- NOTE | 2020-06-20 07:50 | PDOC ---
Exam Note: Jassi Note: This note is a late entry for 06/19/2020 covers elements not covered in my initial note. Subjective: The patient was seen face to face in the evening of 06/19/2020 with Alexander HOLLINGSWORTH. Discussed with nursing staff, reviewed the chart. The patient slept 7-1/4 hours previous night. He had become threatening the day before when another demented patient walked into his room but today during the day he has been pleasant, cooperative. Review of Systems: Ambulation impaired with walker. No CV, , pulmonary, eye system symptoms on review. Mental Status Exam: Reasonably oriented. I met with him in his room. He is pleasant, cooperative. He states his daughter has not called him even though he has left her message. Abstraction is fair. Computation is impaired. Language function intact. Attention span is short. Mood and affect is improved. No suicidal or homicidal ideation. Laboratory Data: Reviewed. Impression: Bipolar disorder mixed with psychotic features. Mild cognitive impairment. Impulse control disorder unspecified. Anxiety disorder unspecified. Plan: No change from initial note. Assessment: Vital Signs/I&O: Vital Signs Date Time Temp Pulse Resp B/P (MAP) Pulse Ox O2 Delivery O2 Flow Rate FiO2 06/20/20 06:29 97.8 62 16 148/87 (107) 96 06/19/20 06:00 Room Air I & O 06/19/20 06/19/20 06/20/20 15:00 23:00 07:00 Intake Total 240 ml 600 ml Balance 240 ml 600 ml Current Medications: I have reviewed the current psychotropics carefully including drug interactions. Risk benefit ratio favors no change other than as noted in my dictated progress note. Diagnosis: Problems: (1) Schizoaffective disorder, bipolar type (2) Anxiety disorder, unspecified (3) Bipolar disorder, curr episode mixed, severe, with psychotic features (4) Major neurocognitive disorder (5) Impulse control disorder, unspecified OBDULIA MOLINA MD Jun 20, 2020 07:50
[2020-06-20] MEDS: METOPROLOL SUCC 24HR ER 25 MG TAB.ER.24H. PO SCH (08:38)
[2020-06-20] MEDS: amLODIPine BESYLATE 10 MG TABLET PO SCH (08:38)
[2020-06-20] MEDS: ACETAMINOPHEN 500 MG TABLET PO SCH ×2 (08:38→20:21)
[2020-06-20 09:55] LABS: BASO # 0.1 x10^3/uL (0.0-0.2); BASO % 1 % (0-3); EOS # 0.3 x10^3/uL (0.0-0.7); EOS % 5 % (0-3); HEMATOCRIT 44.3 % (39.0-53.0); HEMOGLOBIN 14.8 g/dL (13.0-17.5); LYMPH # 1.3 x10^3/uL (1.0-4.8); LYMPH % 23 % (24-48); MEAN CORPUSCULAR HEMOGLOBIN 31 pg (25-35); MEAN CORPUSCULAR HGB CONC 34 g/dL (31-37); MEAN CORPUSCULAR VOLUME 92 fL (79-100); MONO # 0.5 x10^3/uL (0.0-1.1); MONO % 9 % (0-9); NEUT # 3.5 x10^3uL (1.8-7.7); NEUT % 61 % (31-73); PLATELET COUNT 285 x10^3/uL (140-400); RED BLOOD COUNT 4.79 x10^6/uL (4.30-5.70); RED CELL DISTRIBUTION WIDTH 13.3 % (11.5-14.5); WHITE BLOOD COUNT 5.7 x10^3/uL (4.0-11.0)
[2020-06-20 10:02] LABS: ALBUMIN 3.6 g/dL (3.4-5.0); ALBUMIN/GLOBULIN RATIO 0.9 (1.0-1.7); CALCIUM 9.4 mg/dL (8.5-10.1); CREATININE 0.9 mg/dL (0.7-1.3); GFR 83.2; TOTAL BILIRUBIN 0.4 mg/dL (0.2-1.0); TOTAL PROTEIN 7.4 g/dL (6.4-8.2)
[2020-06-20 15:51] VITALS: BP 147/78
[2020-06-20] MEDS: traZODone 50 MG TABLET. PO SCH (20:20)
[2020-06-20] MEDS: DIVALPROEX ER 250 MG TAB.ER.24H. PO SCH (20:20)
[2020-06-20] MEDS: QUEtiapine 25 MG TABLET. PO SCH (20:20)
[2020-06-20] MEDS: ATORVASTATIN CALCIUM 10 MG TABLET. PO SCH (20:21)
[2020-06-20] MEDS: DIVALPROEX ER 500 MG TAB.ER.24H PO SCH (20:21)
--- NOTE | 2020-06-20 20:36 | PDOC ---
Exam Note: Jassi Note: Please also refer to the separate dictated note~for this date of service dictated separately.~Patient seen individually. Discussed the patient with Nursing staff reviewed the chart.~Reviewed interim history and current functioning. Reviewed vital signs,~Labs/ Radiology~and current medications noted below. Continue current treatment with the changes noted in the dictated addendum note Assessment: Vital Signs/I&O: Vital Signs Date Time Temp Pulse Resp B/P (MAP) Pulse Ox O2 Delivery O2 Flow Rate FiO2 06/20/20 15:51 98.6 82 20 147/78 (101) 97 Room Air I & O 06/19/20 06/19/20 06/20/20 14:59 22:59 06:59 Intake Total 240 ml 600 ml Balance 240 ml 600 ml Labs: Laboratory Tests Test 06/20/20 08:50 White Blood Count 5.7 x10^3/uL (4.0-11.0) Red Blood Count 4.79 x10^6/uL (4.30-5.70) Hemoglobin 14.8 g/dL (13.0-17.5) Hematocrit 44.3 % (39.0-53.0) Mean Corpuscular Volume 92 fL (79-100) Mean Corpuscular Hemoglobin 31 pg (25-35) Mean Corpuscular Hemoglobin Concent 34 g/dL (31-37) Red Cell Distribution Width 13.3 % (11.5-14.5) Platelet Count 285 x10^3/uL (140-400) Neutrophils (%) (Auto) 61 % (31-73) Lymphocytes (%) (Auto) 23 % (24-48) L Monocytes (%) (Auto) 9 % (0-9) Eosinophils (%) (Auto) 5 % (0-3) H Basophils (%) (Auto) 1 % (0-3) Neutrophils # (Auto) 3.5 x10^3uL (1.8-7.7) Lymphocytes # (Auto) 1.3 x10^3/uL (1.0-4.8) Monocytes # (Auto) 0.5 x10^3/uL (0.0-1.1) Eosinophils # (Auto) 0.3 x10^3/uL (0.0-0.7) Basophils # (Auto) 0.1 x10^3/uL (0.0-0.2) Sodium Level 142 mmol/L (136-145) Potassium Level 4.0 mmol/L (3.5-5.1) Chloride Level 104 mmol/L (98-107) Carbon Dioxide Level 26 mmol/L (21-32) Anion Gap 12 (6-14) Blood Urea Nitrogen 16 mg/dL (8-26) Creatinine 0.9 mg/dL (0.7-1.3) Estimated GFR (Cockcroft-Gault) 83.2 BUN/Creatinine Ratio 18 (6-20) Glucose Level 133 mg/dL (70-99) H Calcium Level 9.4 mg/dL (8.5-10.1) Total Bilirubin 0.4 mg/dL (0.2-1.0) Aspartate Amino Transferase (AST) 61 U/L (15-37) H Alanine Aminotransferase (ALT) 53 U/L (16-63) Alkaline Phosphatase 101 U/L (46-116) Total Protein 7.4 g/dL (6.4-8.2) Albumin 3.6 g/dL (3.4-5.0) Albumin/Globulin Ratio 0.9 (1.0-1.7) L Current Medications: I have reviewed the current psychotropics carefully including drug interactions. Risk benefit ratio favors no change other than as noted in my dictated progress note. Diagnosis: Problems: (1) Schizoaffective disorder, bipolar type (2) Anxiety disorder, unspecified (3) Bipolar disorder, curr episode mixed, severe, with psychotic features (4) Major neurocognitive disorder (5) Impulse control disorder, unspecified OBDULIA MOLINA MD Jun 20, 2020 20:36
[2020-06-21 06:26] VITALS: BP 140/82
--- NOTE | 2020-06-21 07:48 | PDOC ---
Exam Note: Jassi Note: This note is a late entry for 06/20/2020 covers elements not covered in my initial note. Subjective: The patient was seen face to face in the evening of 06/20/2020 with Alexander HOLLINGSWORTH. Discussed with nursing staff, reviewed the chart. The patient slept 6-3/4 hours previous night. He has been calmer, anxious. He states he has not had a return telephone call from his daughter but he admits she is busy because she has 4 children to take care of. Review of Systems: Ambulation impaired with walker. No CV, , pulmonary, eye system symptoms on review. Mental Status Exam: Reasonably oriented. Speech is coherent. Abstraction is fair. Computation is impaired. Language function intact. Attention span is short. Mood and affect is improved. No suicidal or homicidal ideation. Laboratory Data: Reviewed. Impression: Bipolar disorder mixed with psychotic features. Mild cognitive impairment. Impulse control disorder unspecified. Anxiety disorder unspecified. Plan: No change from initial note. Assessment: Vital Signs/I&O: Vital Signs Date Time Temp Pulse Resp B/P (MAP) Pulse Ox O2 Delivery O2 Flow Rate FiO2 06/21/20 06:26 97.5 62 14 140/82 (101) 97 06/20/20 15:51 Room Air I & O 06/20/20 06/20/20 06/21/20 15:00 23:00 07:00 Intake Total 360 ml 580 ml 360 ml Balance 360 ml 580 ml 360 ml Labs: Laboratory Tests Test 06/20/20 08:50 White Blood Count 5.7 x10^3/uL (4.0-11.0) Red Blood Count 4.79 x10^6/uL (4.30-5.70) Hemoglobin 14.8 g/dL (13.0-17.5) Hematocrit 44.3 % (39.0-53.0) Mean Corpuscular Volume 92 fL (79-100) Mean Corpuscular Hemoglobin 31 pg (25-35) Mean Corpuscular Hemoglobin Concent 34 g/dL (31-37) Red Cell Distribution Width 13.3 % (11.5-14.5) Platelet Count 285 x10^3/uL (140-400) Neutrophils (%) (Auto) 61 % (31-73) Lymphocytes (%) (Auto) 23 % (24-48) L Monocytes (%) (Auto) 9 % (0-9) Eosinophils (%) (Auto) 5 % (0-3) H Basophils (%) (Auto) 1 % (0-3) Neutrophils # (Auto) 3.5 x10^3uL (1.8-7.7) Lymphocytes # (Auto) 1.3 x10^3/uL (1.0-4.8) Monocytes # (Auto) 0.5 x10^3/uL (0.0-1.1) Eosinophils # (Auto) 0.3 x10^3/uL (0.0-0.7) Basophils # (Auto) 0.1 x10^3/uL (0.0-0.2) Sodium Level 142 mmol/L (136-145) Potassium Level 4.0 mmol/L (3.5-5.1) Chloride Level 104 mmol/L (98-107) Carbon Dioxide Level 26 mmol/L (21-32) Anion Gap 12 (6-14) Blood Urea Nitrogen 16 mg/dL (8-26) Creatinine 0.9 mg/dL (0.7-1.3) Estimated GFR (Cockcroft-Gault) 83.2 BUN/Creatinine Ratio 18 (6-20) Glucose Level 133 mg/dL (70-99) H Calcium Level 9.4 mg/dL (8.5-10.1) Total Bilirubin 0.4 mg/dL (0.2-1.0) Aspartate Amino Transferase (AST) 61 U/L (15-37) H Alanine Aminotransferase (ALT) 53 U/L (16-63) Alkaline Phosphatase 101 U/L (46-116) Total Protein 7.4 g/dL (6.4-8.2) Albumin 3.6 g/dL (3.4-5.0) Albumin/Globulin Ratio 0.9 (1.0-1.7) L Current Medications: I have reviewed the current psychotropics carefully including drug interactions. Risk benefit ratio favors no change other than as noted in my dictated progress note. Diagnosis: Problems: (1) Schizoaffective disorder, bipolar type (2) Bipolar disorder, curr episode mixed, severe, with psychotic features (3) Anxiety disorder, unspecified (4) Major neurocognitive disorder (5) Impulse control disorder, unspecified (6) Impulse control disorder OBDULIA MOLINA MD Jun 21, 2020 07:48
[2020-06-21] MEDS: METOPROLOL SUCC 24HR ER 25 MG TAB.ER.24H. PO SCH (07:58)
[2020-06-21] MEDS: amLODIPine BESYLATE 10 MG TABLET PO SCH (07:58)
[2020-06-21] MEDS: CALCIUM CARBONATE 500 MG TAB.CHEW PO SCH ×3 (07:59→17:16)
[2020-06-21] MEDS: CHOLECALCIFEROL (VITAMIN D3) 50,000 UNIT CAPSULE PO SCH (07:59)
[2020-06-21] MEDS: ACETAMINOPHEN 500 MG TABLET PO SCH ×2 (07:59→19:58)
[2020-06-21 16:13] VITALS: BP 137/79
[2020-06-21] MEDS: QUEtiapine 25 MG TABLET. PO SCH (19:58)
[2020-06-21] MEDS: traZODone 50 MG TABLET. PO SCH (19:58)
[2020-06-21] MEDS: ATORVASTATIN CALCIUM 10 MG TABLET. PO SCH (19:58)
[2020-06-21] MEDS: GABAPENTIN 300 MG CAPSULE. PO SCH (20:00)
--- NOTE | 2020-06-21 20:53 | PDOC ---
Exam Note: Jassi Note: Please also refer to the separate dictated note~for this date of service dictated separately.~Patient seen individually. Discussed the patient with Nursing staff reviewed the chart.~Reviewed interim history and current functioning. Reviewed vital signs,~Labs/ Radiology~and current medications noted below. Continue current treatment with the changes noted in the dictated addendum note Assessment: Vital Signs/I&O: Vital Signs Date Time Temp Pulse Resp B/P (MAP) Pulse Ox O2 Delivery O2 Flow Rate FiO2 06/21/20 16:13 98.5 87 18 137/79 (98) 96 06/20/20 15:51 Room Air I & O 06/20/20 06/20/20 06/21/20 15:00 23:00 07:00 Intake Total 360 ml 580 ml 360 ml Balance 360 ml 580 ml 360 ml Current Medications: Meds: Current Medications Medications (Trade) Dose Ordered Sig/Vicente Route PRN Reason Start Time Stop Time Status Last Admin Dose Admin Gabapentin (Neurontin) 300 mg BID PO 06/21/20 21:00 06/21/20 20:00 I have reviewed the current psychotropics carefully including drug interactions. Risk benefit ratio favors no change other than as noted in my dictated progress note. Diagnosis: Problems: (1) Schizoaffective disorder, bipolar type (2) Anxiety disorder, unspecified (3) Bipolar disorder, curr episode mixed, severe, with psychotic features (4) Major neurocognitive disorder (5) Impulse control disorder, unspecified OBDULIA MOLINA MD Jun 21, 2020 20:53
[2020-06-22 06:17] VITALS: BP 124/71
--- NOTE | 2020-06-22 07:24 | PDOC ---
Exam Note: Jassi Note: This note is a late entry for 06/21/2020 covers elements not covered in my initial note. Subjective: The patient was seen face to face in the evening of 06/21/2020 with Niya HOLLINGSWORTH. Discussed with nursing staff, reviewed the chart. The patient slept 5-3/4 hours previous night. Overall the patient is doing better. He does complain of a wart on his fingers and we will defer to Dr. Youngblood. AST is increased from 25 to 61. ALT 36 to 53. He is on Depakote and we will change this to Neurontin 300 mg twice a day as a mood stabilizer and avoid side effects from Depakote. Review of Systems: Ambulation impaired with walker. No CV, , pulmonary, eye system symptoms on review. Mental Status Exam: Reasonably oriented. I met with him in his room. He is quite pleasant, verbal, interactive, fixated on the warts on his fingers. We will defer to Dr. Youngblood. Speech is coherent. Abstraction is fair. Computation is impaired. Language function intact. Attention span is short. Mood and affect is improved. No suicidal or homicidal ideation. Laboratory Data: Reviewed. Impression: Bipolar disorder mixed with psychotic features. Mild cognitive impairment. Impulse control disorder unspecified. Anxiety disorder unspecified. Plan: Change the patients Depakote which could be hepatotoxic to Neurontin 300 mg twice a day. Rest unchanged for now. Assessment: Vital Signs/I&O: Vital Signs Date Time Temp Pulse Resp B/P (MAP) Pulse Ox O2 Delivery O2 Flow Rate FiO2 06/22/20 06:17 97.8 60 18 124/71 (88) 96 06/20/20 15:51 Room Air I & O 06/21/20 06/21/20 06/22/20 15:00 23:00 07:00 Intake Total 840 ml 480 ml 360 ml Balance 840 ml 480 ml 360 ml Current Medications: Meds: Current Medications Medications (Trade) Dose Ordered Sig/Vicente Route PRN Reason Start Time Stop Time Status Last Admin Dose Admin Gabapentin (Neurontin) 300 mg BID PO 06/21/20 21:00 06/21/20 20:00 I have reviewed the current psychotropics carefully including drug interactions. Risk benefit ratio favors no change other than as noted in my dictated progress note. Diagnosis: Problems: (1) Schizoaffective disorder, bipolar type (2) Anxiety disorder, unspecified (3) Bipolar disorder, curr episode mixed, severe, with psychotic features (4) Major neurocognitive disorder (5) Impulse control disorder, unspecified OBDULIA MOLINA MD Jun 22, 2020 07:24
[2020-06-22] MEDS: METOPROLOL SUCC 24HR ER 25 MG TAB.ER.24H. PO SCH (08:52)
[2020-06-22] MEDS: CALCIUM CARBONATE 500 MG TAB.CHEW PO SCH ×3 (08:52→17:34)
[2020-06-22] MEDS: GABAPENTIN 300 MG CAPSULE. PO SCH ×2 (08:53→20:34)
[2020-06-22] MEDS: amLODIPine BESYLATE 10 MG TABLET PO SCH (08:53)
[2020-06-22] MEDS: ACETAMINOPHEN 500 MG TABLET PO SCH ×2 (08:53→20:37)
[2020-06-22 16:25] VITALS: BP 118/77
[2020-06-22] MEDS: ATORVASTATIN CALCIUM 10 MG TABLET. PO SCH (20:36)
[2020-06-22] MEDS: traZODone 50 MG TABLET. PO SCH (20:38)
[2020-06-22] MEDS: QUEtiapine 25 MG TABLET. PO SCH (20:40)
--- NOTE | 2020-06-22 20:47 | PDOC ---
Exam Note: Jassi Note: Please also refer to the separate dictated note~for this date of service dictated separately.~Patient seen individually. Discussed the patient with Nursing staff reviewed the chart.~Reviewed interim history and current functioning. Reviewed vital signs,~Labs/ Radiology~and current medications noted below. Continue current treatment with the changes noted in the dictated addendum note Assessment: Vital Signs/I&O: Vital Signs Date Time Temp Pulse Resp B/P (MAP) Pulse Ox O2 Delivery O2 Flow Rate FiO2 06/22/20 16:25 98.5 88 16 118/77 (91) 94 06/20/20 15:51 Room Air I & O 06/21/20 06/21/20 06/22/20 15:00 23:00 07:00 Intake Total 840 ml 480 ml 360 ml Balance 840 ml 480 ml 360 ml Current Medications: Meds: Current Medications Medications (Trade) Dose Ordered Sig/Vicente Route PRN Reason Start Time Stop Time Status Last Admin Dose Admin Gabapentin (Neurontin) 300 mg BID PO 06/21/20 21:00 06/22/20 20:34 I have reviewed the current psychotropics carefully including drug interactions. Risk benefit ratio favors no change other than as noted in my dictated progress note. Diagnosis: Problems: (1) Anxiety disorder, unspecified (2) Bipolar disorder, curr episode mixed, severe, with psychotic features (3) Major neurocognitive disorder (4) Impulse control disorder, unspecified (5) Schizoaffective disorder, bipolar type OBDULIA MOLINA MD Jun 22, 2020 20:47
[2020-06-23 07:11] VITALS: BP 145/88
[2020-06-23 07:54] LABS: BASO # 0.1 x10^3/uL (0.0-0.2); BASO % 1 % (0-3); EOS # 0.3 x10^3/uL (0.0-0.7); EOS % 5 % (0-3); HEMATOCRIT 37.7 % (39.0-53.0); HEMOGLOBIN 12.8 g/dL (13.0-17.5); LYMPH # 1.3 x10^3/uL (1.0-4.8); LYMPH % 25 % (24-48); MEAN CORPUSCULAR HEMOGLOBIN 31 pg (25-35); MEAN CORPUSCULAR HGB CONC 34 g/dL (31-37); MEAN CORPUSCULAR VOLUME 92 fL (79-100); MONO % 19 % (0-9); NEUT # 2.5 x10^3uL (1.8-7.7); NEUT % 49 % (31-73); PLATELET COUNT 259 x10^3/uL (140-400); RED BLOOD COUNT 4.08 x10^6/uL (4.30-5.70); RED CELL DISTRIBUTION WIDTH 13.4 % (11.5-14.5)
[2020-06-23 08:07] LABS: ALBUMIN 3.1 g/dL (3.4-5.0); CALCIUM 8.6 mg/dL (8.5-10.1); GFR 73.7; POTASSIUM 3.9 mmol/L (3.5-5.1); TOTAL BILIRUBIN 0.3 mg/dL (0.2-1.0); TOTAL PROTEIN 6.2 g/dL (6.4-8.2)
[2020-06-23] MEDS: CALCIUM CARBONATE 500 MG TAB.CHEW PO SCH ×3 (09:06→17:19)
[2020-06-23] MEDS: GABAPENTIN 300 MG CAPSULE. PO SCH ×2 (09:06→19:56)
[2020-06-23] MEDS: METOPROLOL SUCC 24HR ER 25 MG TAB.ER.24H. PO SCH (09:06)
[2020-06-23] MEDS: amLODIPine BESYLATE 10 MG TABLET PO SCH (09:07)
[2020-06-23] MEDS: ACETAMINOPHEN 500 MG TABLET PO SCH ×3 (09:08→20:13)
[2020-06-23 11:19] LABS: % EOS 7 % (0-5); % LYMPHS 29 % (24-48); % MONOS 19 % (0-10); % SEGS 45 % (35-66); PLT ESTIMATE ADEQUATE (ADEQUATE)
[2020-06-23 16:32] VITALS: BP 130/79
[2020-06-23] MEDS: ATORVASTATIN CALCIUM 10 MG TABLET. PO SCH (19:56)
[2020-06-23] MEDS: traZODone 50 MG TABLET. PO SCH (19:56)
[2020-06-23] MEDS: QUEtiapine 25 MG TABLET. PO SCH (19:56)
--- NOTE | 2020-06-23 20:44 | PDOC ---
Exam Note: Jassi Note: Please also refer to the separate dictated note~for this date of service dictated separately.~Patient seen individually. Discussed the patient with Nursing staff reviewed the chart.~Reviewed interim history and current functioning. Reviewed vital signs,~Labs/ Radiology~and current medications noted below. Continue current treatment with the changes noted in the dictated addendum note Assessment: Vital Signs/I&O: Vital Signs Date Time Temp Pulse Resp B/P (MAP) Pulse Ox O2 Delivery O2 Flow Rate FiO2 06/23/20 16:32 97.6 84 19 130/79 (96) 94 06/20/20 15:51 Room Air I & O 06/22/20 06/22/20 06/23/20 15:00 23:00 07:00 Intake Total 805 ml 720 ml Balance 805 ml 720 ml Labs: Laboratory Tests Test 06/23/20 07:23 White Blood Count 5.0 x10^3/uL (4.0-11.0) Red Blood Count 4.08 x10^6/uL (4.30-5.70) L Hemoglobin 12.8 g/dL (13.0-17.5) L Hematocrit 37.7 % (39.0-53.0) L Mean Corpuscular Volume 92 fL (79-100) Mean Corpuscular Hemoglobin 31 pg (25-35) Mean Corpuscular Hemoglobin Concent 34 g/dL (31-37) Red Cell Distribution Width 13.4 % (11.5-14.5) Platelet Count 259 x10^3/uL (140-400) Neutrophils (%) (Auto) 49 % (31-73) Lymphocytes (%) (Auto) 25 % (24-48) Monocytes (%) (Auto) 19 % (0-9) H Eosinophils (%) (Auto) 5 % (0-3) H Basophils (%) (Auto) 1 % (0-3) Neutrophils # (Auto) 2.5 x10^3uL (1.8-7.7) Lymphocytes # (Auto) 1.3 x10^3/uL (1.0-4.8) Monocytes # (Auto) 1.0 x10^3/uL (0.0-1.1) Eosinophils # (Auto) 0.3 x10^3/uL (0.0-0.7) Basophils # (Auto) 0.1 x10^3/uL (0.0-0.2) Segmented Neutrophils % 45 % (35-66) Lymphocytes % 29 % (24-48) Monocytes % 19 % (0-10) H Eosinophils % 7 % (0-5) H Platelet Estimate Adequate (ADEQUATE) Sodium Level 142 mmol/L (136-145) Potassium Level 3.9 mmol/L (3.5-5.1) Chloride Level 108 mmol/L (98-107) H Carbon Dioxide Level 28 mmol/L (21-32) Anion Gap 6 (6-14) Blood Urea Nitrogen 17 mg/dL (8-26) Creatinine 1.0 mg/dL (0.7-1.3) Estimated GFR (Cockcroft-Gault) 73.7 BUN/Creatinine Ratio 17 (6-20) Glucose Level 93 mg/dL (70-99) Calcium Level 8.6 mg/dL (8.5-10.1) Total Bilirubin 0.3 mg/dL (0.2-1.0) Aspartate Amino Transferase (AST) 40 U/L (15-37) H Alanine Aminotransferase (ALT) 52 U/L (16-63) Alkaline Phosphatase 86 U/L (46-116) Total Protein 6.2 g/dL (6.4-8.2) L Albumin 3.1 g/dL (3.4-5.0) L Albumin/Globulin Ratio 1.0 (1.0-1.7) Current Medications: I have reviewed the current psychotropics carefully including drug interactions. Risk benefit ratio favors no change other than as noted in my dictated progress note. Diagnosis: Problems: (1) Schizoaffective disorder, bipolar type (2) Anxiety disorder, unspecified (3) Bipolar disorder, curr episode mixed, severe, with psychotic features (4) Major neurocognitive disorder (5) Impulse control disorder, unspecified OBDULIA MOLINA MD Jun 23, 2020 20:44
[2020-06-24 05:54] VITALS: BP 123/73
--- NOTE | 2020-06-24 07:09 | PDOC ---
Exam Note: Jassi Note: This note is a late entry for 06/22/2020 covers elements not covered in my initial note. Subjective: The patient was seen face to face in the evening of 06/22/2020 with Niya HOLLINGSWORTH. Discussed with nursing staff, reviewed the chart. The patient slept 7 hours previous night. The patient has been a new roommate with another patient. He has been somewhat frustrated about this but we processed this individually. He was able to accept this. We will repeat labs morning of 06/23. Review of Systems: Ambulation impaired with walker. No CV, , pulmonary, eye system symptoms on review. Mental Status Exam: Reasonably oriented. I met with him in his room. Speech is coherent. Abstraction is fair. Computation is impaired. Language function intact. Attention span is short. Mood and affect is improved. No suicidal or homicidal ideation. Laboratory Data: Reviewed. Impression: Bipolar disorder mixed with psychotic features. Mild cognitive impairment. Impulse control disorder unspecified. Anxiety disorder unspecified. Plan: The patient is tolerating the change from Depakote which was stopped due to elevation of liver enzymes to Neurontin as a mood stabilizer and seems to be tolerating it well. We may need to increase this as clinically indicated. Assessment: Vital Signs/I&O: Vital Signs Date Time Temp Pulse Resp B/P (MAP) Pulse Ox O2 Delivery O2 Flow Rate FiO2 06/24/20 05:54 97.5 60 18 123/73 (90) 96 Room Air I & O 06/23/20 06/23/20 06/24/20 15:00 23:00 07:00 Intake Total 650 ml 480 ml 120 ml Balance 650 ml 480 ml 120 ml Labs: Laboratory Tests Test 06/23/20 07:23 White Blood Count 5.0 x10^3/uL (4.0-11.0) Red Blood Count 4.08 x10^6/uL (4.30-5.70) L Hemoglobin 12.8 g/dL (13.0-17.5) L Hematocrit 37.7 % (39.0-53.0) L Mean Corpuscular Volume 92 fL (79-100) Mean Corpuscular Hemoglobin 31 pg (25-35) Mean Corpuscular Hemoglobin Concent 34 g/dL (31-37) Red Cell Distribution Width 13.4 % (11.5-14.5) Platelet Count 259 x10^3/uL (140-400) Neutrophils (%) (Auto) 49 % (31-73) Lymphocytes (%) (Auto) 25 % (24-48) Monocytes (%) (Auto) 19 % (0-9) H Eosinophils (%) (Auto) 5 % (0-3) H Basophils (%) (Auto) 1 % (0-3) Neutrophils # (Auto) 2.5 x10^3uL (1.8-7.7) Lymphocytes # (Auto) 1.3 x10^3/uL (1.0-4.8) Monocytes # (Auto) 1.0 x10^3/uL (0.0-1.1) Eosinophils # (Auto) 0.3 x10^3/uL (0.0-0.7) Basophils # (Auto) 0.1 x10^3/uL (0.0-0.2) Segmented Neutrophils % 45 % (35-66) Lymphocytes % 29 % (24-48) Monocytes % 19 % (0-10) H Eosinophils % 7 % (0-5) H Platelet Estimate Adequate (ADEQUATE) Sodium Level 142 mmol/L (136-145) Potassium Level 3.9 mmol/L (3.5-5.1) Chloride Level 108 mmol/L (98-107) H Carbon Dioxide Level 28 mmol/L (21-32) Anion Gap 6 (6-14) Blood Urea Nitrogen 17 mg/dL (8-26) Creatinine 1.0 mg/dL (0.7-1.3) Estimated GFR (Cockcroft-Gault) 73.7 BUN/Creatinine Ratio 17 (6-20) Glucose Level 93 mg/dL (70-99) Calcium Level 8.6 mg/dL (8.5-10.1) Total Bilirubin 0.3 mg/dL (0.2-1.0) Aspartate Amino Transferase (AST) 40 U/L (15-37) H Alanine Aminotransferase (ALT) 52 U/L (16-63) Alkaline Phosphatase 86 U/L (46-116) Total Protein 6.2 g/dL (6.4-8.2) L Albumin 3.1 g/dL (3.4-5.0) L Albumin/Globulin Ratio 1.0 (1.0-1.7) Current Medications: I have reviewed the current psychotropics carefully including drug interactions. Risk benefit ratio favors no change other than as noted in my dictated progress note. Diagnosis: Problems: (1) Schizoaffective disorder, bipolar type (2) Anxiety disorder, unspecified (3) Bipolar disorder, curr episode mixed, severe, with psychotic features (4) Major neurocognitive disorder (5) Impulse control disorder, unspecified OBDULIA MOLINA MD Jun 24, 2020 07:09
[2020-06-24] MEDS: METOPROLOL SUCC 24HR ER 25 MG TAB.ER.24H. PO SCH (09:04)
[2020-06-24] MEDS: CALCIUM CARBONATE 500 MG TAB.CHEW PO SCH ×3 (09:04→18:00)
[2020-06-24] MEDS: GABAPENTIN 300 MG CAPSULE. PO SCH ×2 (09:04→19:30)
[2020-06-24] MEDS: amLODIPine BESYLATE 10 MG TABLET PO SCH (09:04)
[2020-06-24] MEDS: ACETAMINOPHEN 500 MG TABLET PO SCH ×2 (09:05→19:31)
[2020-06-24 16:25] VITALS: BP 123/65
[2020-06-24] MEDS: ATORVASTATIN CALCIUM 10 MG TABLET. PO SCH (19:30)
[2020-06-24] MEDS: QUEtiapine 25 MG TABLET. PO SCH (19:30)
[2020-06-24] MEDS: traZODone 50 MG TABLET. PO SCH (19:30)
--- NOTE | 2020-06-24 20:42 | PDOC ---
Exam Note: Jassi Note: Please also refer to the separate dictated note~for this date of service dictated separately.~Patient seen individually. Discussed the patient with Nursing staff reviewed the chart.~Reviewed interim history and current functioning. Reviewed vital signs,~Labs/ Radiology~and current medications noted below. Continue current treatment with the changes noted in the dictated addendum note Assessment: Vital Signs/I&O: Vital Signs Date Time Temp Pulse Resp B/P (MAP) Pulse Ox O2 Delivery O2 Flow Rate FiO2 06/24/20 16:25 97.9 86 16 123/65 (84) 96 06/24/20 05:54 Room Air I & O 06/23/20 06/23/20 06/24/20 15:00 23:00 07:00 Intake Total 650 ml 480 ml 120 ml Balance 650 ml 480 ml 120 ml Current Medications: I have reviewed the current psychotropics carefully including drug interactions. Risk benefit ratio favors no change other than as noted in my dictated progress note. Diagnosis: Problems: (1) Schizoaffective disorder, bipolar type (2) Anxiety disorder, unspecified (3) Bipolar disorder, curr episode mixed, severe, with psychotic features (4) Major neurocognitive disorder (5) Impulse control disorder, unspecified OBDULIA MOLINA MD Jun 24, 2020 20:42
[2020-06-25 05:49] VITALS: BP 130/81
[2020-06-25] MEDS: GABAPENTIN 300 MG CAPSULE. PO SCH ×2 (08:40→20:02)
[2020-06-25] MEDS: amLODIPine BESYLATE 10 MG TABLET PO SCH (08:41)
[2020-06-25] MEDS: CALCIUM CARBONATE 500 MG TAB.CHEW PO SCH ×3 (08:41→17:56)
[2020-06-25] MEDS: METOPROLOL SUCC 24HR ER 25 MG TAB.ER.24H. PO SCH (08:41)
[2020-06-25] MEDS: ACETAMINOPHEN 500 MG TABLET PO SCH (08:46)
--- NOTE | 2020-06-25 08:49 | PDOC ---
Exam Note: Jassi Note: This note is a late entry for 06/23/2020 covers elements not covered in my initial note. Subjective: The patient was seen face to face in the evening of 06/23/2020 with Vel HOLLINGSWORTH. Discussed with nursing staff, reviewed the chart. The patient slept 6-3/4 hours previous night. Overall the patient has been quite appropriate on the unit. He spends much time in his room, wanting to walk outside. At one point he stated he needed to go out as one of the other patient was being discharged. Staff informed him that it was not possible and he accepted it readily. Reportedly his [facility] is not willing to have him back and I will defer to social service staff to address this. Review of Systems: Ambulation impaired with walker. No CV, , pulmonary, eye system symptoms on review. He does complain of a wart on his hand. I will defer to Dr. Youngblood. Mental Status Exam: Reasonably oriented. I met with him in his room. Speech is coherent. Abstraction is fair. Computation is impaired. Language function intact. Attention span is short. Mood and affect is improved. No suicidal or homicidal ideation. Laboratory Data: Reviewed. Impression: Bipolar disorder mixed with psychotic features. Mild cognitive impairment. Impulse control disorder unspecified. Anxiety disorder unspecified. Plan: Continue current psychotropics. The patient is tolerating Neurontin in place of Depakote. We will repeat liver enzymes to assess stability. Assessment: Vital Signs/I&O: Vital Signs Date Time Temp Pulse Resp B/P (MAP) Pulse Ox O2 Delivery O2 Flow Rate FiO2 06/25/20 08:41 57 130/81 06/25/20 05:49 97.6 18 94 Room Air I & O 06/24/20 06/24/20 06/25/20 15:00 23:00 07:00 Intake Total 680 ml 420 ml Balance 680 ml 420 ml Current Medications: I have reviewed the current psychotropics carefully including drug interactions. Risk benefit ratio favors no change other than as noted in my dictated progress note. Diagnosis: Problems: (1) Schizoaffective disorder, bipolar type (2) Anxiety disorder, unspecified (3) Bipolar disorder, curr episode mixed, severe, with psychotic features (4) Major neurocognitive disorder (5) Impulse control disorder, unspecified OBDULIA MOLINA MD Jun 25, 2020 08:48
--- NOTE | 2020-06-25 08:50 | PDOC ---
Exam Note: Jassi Note: This note is a late entry for 06/24/2020 covers elements not covered in my initial note. Subjective: The patient was reviewed on telehealth rounds in the evening of 06/24/2020 with Vel HOLLINGSWORTH, because there was a patient who turned up positive for Covid-19 infection on the unit and the unit has been closed by the [facility] for any admissions or discharges once again. Discussed with nursing staff, reviewed the chart. The patient has been refusing Tylenol because he is aware his liver enzymes were elevated. When I explained the risk-benefit ratio he stated he did not need Tylenol because he had no pain. AST is still elevated, slightly at 40 but ALT is normal at 53. Review of Systems: Ambulation impaired with walker. No CV, , pulmonary, eye system symptoms on review. Mental Status Exam: Reasonably oriented. He was very pleasant, verbal, interactive I met with him in his room. I asked him if his daughter had called and he stated she had not but he understands because she is busy raising 4 children. He intends to call her tomorrow. Speech is coherent. Abstraction is fair. Computation is impaired. Language function intact. Attention span is short. Mood and affect is improved. No suicidal or homicidal ideation. Laboratory Data: Reviewed. Impression: Bipolar disorder mixed with psychotic features. Mild cognitive impairment. Impulse control disorder unspecified. Anxiety disorder unspecified. Plan: No change from initial note. Assessment: Vital Signs/I&O: Vital Signs Date Time Temp Pulse Resp B/P (MAP) Pulse Ox O2 Delivery O2 Flow Rate FiO2 06/25/20 08:41 57 130/81 06/25/20 05:49 97.6 18 94 Room Air I & O 06/24/20 06/24/20 06/25/20 15:00 23:00 07:00 Intake Total 680 ml 420 ml Balance 680 ml 420 ml Current Medications: I have reviewed the current psychotropics carefully including drug interactions. Risk benefit ratio favors no change other than as noted in my dictated progress note. Diagnosis: Problems: (1) Schizoaffective disorder, bipolar type (2) Anxiety disorder, unspecified (3) Bipolar disorder, curr episode mixed, severe, with psychotic features (4) Major neurocognitive disorder (5) Impulse control disorder, unspecified OBDULIA MOLINA MD Jun 25, 2020 08:50
[2020-06-25 15:47] VITALS: BP 128/73
--- NOTE | 2020-06-25 18:40 | TX PLAN ---
Interdisciplinary Tx Plan Admission Information Jun 05, 2020 at 15:05 Legal Status (on Admission): Voluntary DPOA/Guardian Name: Adriana Olsen (Katy) Contact Other Contact Name: [facility] Other Contact Verified Code Status: Full Code Allergies: Coded Allergies: ramipril (Verified Allergy, Mild, Hives, 02/23/20) HANK Inhibitors (Verified Allergy, Unknown, 02/23/20) rifampin (Verified Allergy, Unknown, 02/23/20) Diagnoses Primary Diagnosis: Major Neurocognitive D/O Reasons for Admission: Aggressive, Relation/conflict, Agitated, Combative, Poor impulse control Problem in Patient's Words: Pt periodically has episodes with other residents Additional Admission Comments: According to the intake, pt was combative with another peer, pt hit the peer and threatens the peer. Pt is agitated. Problems Active Problems: Impulsive Poor boundaries Inactive Problems: Medication compliance Group participation Pt Strengths/Limitations Ability for [place]: Poor Cognitive Functioning/Ability: Fair Communication Skills/Ability: Fair Financial Resources: Fair Insight/Judgement: Poor Intellectual Ability: Fair Physical Health: Fair Social Skills: Poor Stability in Family: Good Stability in School/Work: Poor Verbal Skills: Fair Discharge Criteria Discharge Criteria: No need for close observ., Adequate arrangements @DC, Improved behavior, Improved mood/thought Preliminary Discharge Plan Preliminary DC Plan: Current Living Arrange. Special Precautions Fall Risk: Low Initial D/C Plan At this time, pt will discharge back to [facility] once stable. Identified Discharge Needs: Referral for psychiatry Currently Utilized Resources Currently Utilized Resources/P: Primary Care Physician Referrals Community Resources: Psychiatry services Identified Problems/Hx/Goals Objectives/Short-Term Goals Short Term Goals: Dec. Aggression, Dec. Outbursts, Improved Social Skills, Medication Stabilization, Monitor Med Effects Short Term Goals in Patient's: I want to go back to my own home. Interventions/Frequency Staff Interventions/Frequency&: Psychiatrist to assess pt at least 3x per week for medication management. Social Work to assess pt at least 2x per week for discharge planning and attention to barriers. Nursing to assess medications, manage behaviors and complete 15 minute checks on pt once stable. Encourage group participation in activities (if applicable) or 1:1 engagement based of the activity dept assessment. 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 Education: Pt graduated High school (12th grade) Community Follow-up Primary Care Physician Community Provider/Family Inpu: He just gets fixated on one thing about another resident and his behaviors increase with that person over time. Treatment Plan Explained Patient/Quartz Miner [employer]asting had this treatment plan explained to him/her as indicated by the signature below and has been given the opportunity to ask questions and make suggestions: Date: Patient/Qu[employer]z [employer]er [employer]asting Signature: Status Update Update Pt is eating 100% of meals and sleeping on average 7 hours per night. Pt is calm and cooperative with all staff direction; pt is completely compliant with medications. 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 SW was told that pt is not able to return to [facility] and will need placement elsewhere. SW will aid pt family in finding placement. Pt to discharge [place]. CLEMENT LANIER Jun 25, 2020 18:40
[2020-06-25] MEDS: ATORVASTATIN CALCIUM 10 MG TABLET. PO SCH (20:01)
[2020-06-25] MEDS: traZODone 50 MG TABLET. PO SCH (20:01)
[2020-06-25] MEDS: QUEtiapine 25 MG TABLET. PO SCH (20:01)
--- NOTE | 2020-06-25 20:53 | PDOC ---
Exam Note: Jassi Note: Please also refer to the separate dictated note~for this date of service dictated separately.~Patient seen individually. Discussed the patient with Nursing staff reviewed the chart.~Reviewed interim history and current functioning. Reviewed vital signs,~Labs/ Radiology~and current medications noted below. Continue current treatment with the changes noted in the dictated addendum note Assessment: Vital Signs/I&O: Vital Signs Date Time Temp Pulse Resp B/P (MAP) Pulse Ox O2 Delivery O2 Flow Rate FiO2 06/25/20 15:47 98.0 78 22 128/73 (91) 97 Room Air I & O 06/24/20 06/24/20 06/25/20 15:00 23:00 07:00 Intake Total 680 ml 420 ml Balance 680 ml 420 ml Current Medications: I have reviewed the current psychotropics carefully including drug interactions. Risk benefit ratio favors no change other than as noted in my dictated progress note. Diagnosis: Problems: (1) Schizoaffective disorder, bipolar type (2) Anxiety disorder, unspecified (3) Bipolar disorder, curr episode mixed, severe, with psychotic features (4) Major neurocognitive disorder (5) Impulse control disorder, unspecified OBDULIA MOLINA MD Jun 25, 2020 20:53
[2020-06-26 06:00] VITALS: BP 135/78
[2020-06-26] MEDS: GABAPENTIN 300 MG CAPSULE. PO SCH ×2 (09:21→19:58)
[2020-06-26] MEDS: METOPROLOL SUCC 24HR ER 25 MG TAB.ER.24H. PO SCH (09:22)
[2020-06-26] MEDS: amLODIPine BESYLATE 10 MG TABLET PO SCH (09:22)
[2020-06-26] MEDS: CALCIUM CARBONATE 500 MG TAB.CHEW PO SCH ×3 (09:23→17:27)
[2020-06-26 15:00] VITALS: BP 117/82
[2020-06-26] MEDS: traZODone 50 MG TABLET. PO SCH (19:57)
[2020-06-26] MEDS: QUEtiapine 25 MG TABLET. PO SCH (19:57)
[2020-06-26] MEDS: ATORVASTATIN CALCIUM 10 MG TABLET. PO SCH (19:58)
--- NOTE | 2020-06-26 21:01 | PDOC ---
Exam Note: Jassi Note: Please also refer to the separate dictated note~for this date of service dictated separately.~Patient seen individually. Discussed the patient with Nursing staff reviewed the chart.~Reviewed interim history and current functioning. Reviewed vital signs,~Labs/ Radiology~and current medications noted below. Continue current treatment with the changes noted in the dictated addendum note Assessment: Vital Signs/I&O: Vital Signs Date Time Temp Pulse Resp B/P (MAP) Pulse Ox O2 Delivery O2 Flow Rate FiO2 06/26/20 15:00 97.2 99 20 117/82 (94) 97 Room Air I & O 06/25/20 06/25/20 06/26/20 15:00 23:00 07:00 Intake Total 960 ml 600 ml Balance 960 ml 600 ml Current Medications: I have reviewed the current psychotropics carefully including drug interactions. Risk benefit ratio favors no change other than as noted in my dictated progress note. Diagnosis: Problems: (1) Schizoaffective disorder, bipolar type (2) Anxiety disorder, unspecified (3) Bipolar disorder, curr episode mixed, severe, with psychotic features (4) Major neurocognitive disorder (5) Impulse control disorder, unspecified OBDULIA MOLINA MD Jun 26, 2020 21:01
[2020-06-27 05:42] VITALS: BP 122/68
[2020-06-27] MEDS: amLODIPine BESYLATE 10 MG TABLET PO SCH (08:41)
[2020-06-27] MEDS: GABAPENTIN 300 MG CAPSULE. PO SCH ×2 (08:41→19:54)
[2020-06-27] MEDS: CALCIUM CARBONATE 500 MG TAB.CHEW PO SCH ×3 (08:42→17:28)
[2020-06-27] MEDS: METOPROLOL SUCC 24HR ER 25 MG TAB.ER.24H. PO SCH (09:00)
[2020-06-27 16:15] VITALS: BP 127/74
[2020-06-27] MEDS: traZODone 50 MG TABLET. PO SCH (19:53)
[2020-06-27] MEDS: QUEtiapine 25 MG TABLET. PO SCH (19:54)
[2020-06-27] MEDS: ATORVASTATIN CALCIUM 10 MG TABLET. PO SCH (19:54)
--- NOTE | 2020-06-27 20:54 | PDOC ---
Exam Note: Jassi Note: This note is a late entry for 06/25/2020 covers elements not covered in my initial note. Subjective: The patient was reviewed on telehealth rounds in the evening of 06/25/2020 with Vel HOLLINGSWORTH. Discussed with nursing staff, reviewed the chart. He slept reasonably for 6 hours previous night. He states he tried to talk to his daughter but ended up leaving a message. Review of Systems: Ambulation impaired with walker. No CV, , pulmonary, eye system symptoms on review. Mental Status Exam: Reasonably oriented. He is pleasant, interactive, fairly cooperative, verbal. Speech is coherent. Abstraction is fair. Computation is impaired. Language function intact. Attention span is short. Mood and affect is improved. No suicidal or homicidal ideation. Laboratory Data: Reviewed. Impression: Bipolar disorder mixed with psychotic features. Mild cognitive impairment. Impulse control disorder unspecified. Anxiety disorder unspecified. Plan: No change from initial note. Assessment: Vital Signs/I&O: Vital Signs Date Time Temp Pulse Resp B/P (MAP) Pulse Ox O2 Delivery O2 Flow Rate FiO2 06/27/20 16:15 98.0 96 18 127/74 (91) 97 06/26/20 15:00 Room Air I & O 06/26/20 06/26/20 06/27/20 14:59 22:59 06:59 Intake Total 840 ml 720 ml Balance 840 ml 720 ml Current Medications: I have reviewed the current psychotropics carefully including drug interactions. Risk benefit ratio favors no change other than as noted in my dictated progress note. Diagnosis: Problems: (1) Schizoaffective disorder, bipolar type (2) Anxiety disorder, unspecified (3) Bipolar disorder, curr episode mixed, severe, with psychotic features (4) Major neurocognitive disorder (5) Impulse control disorder, unspecified OBDULIA MOLINA MD Jun 27, 2020 20:54
--- NOTE | 2020-06-27 21:10 | PDOC ---
Exam Note: Jassi Note: This note is a late entry for 06/26/2020 covers elements not covered in my initial note. Subjective: The patient was reviewed on telehealth rounds in the evening of 06/26/2020 with Santa HOLLINGSWORTH. Discussed with nursing staff, reviewed the chart. He slept 7 hours previous night. He did well previous night and during the day. Review of Systems: Ambulation impaired with walker. No CV, , pulmonary, eye system symptoms on review. Mental Status Exam: Reasonably oriented. He is pleasant, verbal, interactive. I have specifically questioned him about any mood changes he has experienced since we have changed the Depakote to Neurontin and he was quite verbal explaining that his mood seems stable to him. No different from before and in fact improved. He does seem less anxious. Speech is coherent. Abstraction is fair. Computation is impaired. Language function intact. Attention span is short. Mood and affect is improved. No suicidal or homicidal ideation. Laboratory Data: Reviewed. Impression: Bipolar disorder mixed with psychotic features. Mild cognitive impairment. Impulse control disorder unspecified. Anxiety disorder unspecified. Plan: No change from initial note. Assessment: Vital Signs/I&O: Vital Signs Date Time Temp Pulse Resp B/P (MAP) Pulse Ox O2 Delivery O2 Flow Rate FiO2 06/27/20 16:15 98.0 96 18 127/74 (91) 97 06/26/20 15:00 Room Air I & O 06/26/20 06/26/20 06/27/20 14:59 22:59 06:59 Intake Total 840 ml 720 ml Balance 840 ml 720 ml Current Medications: I have reviewed the current psychotropics carefully including drug interactions. Risk benefit ratio favors no change other than as noted in my dictated progress note. Diagnosis: Problems: (1) Schizoaffective disorder, bipolar type (2) Anxiety disorder, unspecified (3) Bipolar disorder, curr episode mixed, severe, with psychotic features (4) Major neurocognitive disorder (5) Impulse control disorder, unspecified OBDULIA MOLINA MD Jun 27, 2020 21:10
--- NOTE | 2020-06-27 21:22 | PDOC ---
Exam Note: Jassi Note: Please also refer to the separate dictated note~for this date of service dictated separately.~Patient seen individually. Discussed the patient with Nursing staff reviewed the chart.~Reviewed interim history and current functioning. Reviewed vital signs,~Labs/ Radiology~and current medications noted below. Continue current treatment with the changes noted in the dictated addendum note Assessment: Vital Signs/I&O: Vital Signs Date Time Temp Pulse Resp B/P (MAP) Pulse Ox O2 Delivery O2 Flow Rate FiO2 06/27/20 16:15 98.0 96 18 127/74 (91) 97 06/26/20 15:00 Room Air I & O 06/26/20 06/26/20 06/27/20 14:59 22:59 06:59 Intake Total 840 ml 720 ml Balance 840 ml 720 ml Current Medications: I have reviewed the current psychotropics carefully including drug interactions. Risk benefit ratio favors no change other than as noted in my dictated progress note. Diagnosis: Problems: (1) Schizoaffective disorder, bipolar type (2) Anxiety disorder, unspecified (3) Bipolar disorder, curr episode mixed, severe, with psychotic features (4) Major neurocognitive disorder (5) Impulse control disorder, unspecified OBDULIA MOLINA MD Jun 27, 2020 21:22
[2020-06-28 06:03] VITALS: BP 134/65
[2020-06-28 06:57] LABS: BASO # 0.1 x10^3/uL (0.0-0.2); BASO % 1 % (0-3); EOS # 0.4 x10^3/uL (0.0-0.7); EOS % 7 % (0-3); HEMATOCRIT 38.7 % (39.0-53.0); HEMOGLOBIN 12.9 g/dL (13.0-17.5); LYMPH # 1.6 x10^3/uL (1.0-4.8); LYMPH % 27 % (24-48); MEAN CORPUSCULAR HEMOGLOBIN 31 pg (25-35); MEAN CORPUSCULAR HGB CONC 33 g/dL (31-37); MEAN CORPUSCULAR VOLUME 93 fL (79-100); MONO % 16 % (0-9); NEUT # 2.8 x10^3uL (1.8-7.7); NEUT % 48 % (31-73); PLATELET COUNT 266 x10^3/uL (140-400); RED BLOOD COUNT 4.18 x10^6/uL (4.30-5.70); RED CELL DISTRIBUTION WIDTH 13.3 % (11.5-14.5); WHITE BLOOD COUNT 5.9 x10^3/uL (4.0-11.0)
[2020-06-28 07:26] LABS: ALBUMIN 3.1 g/dL (3.4-5.0); CALCIUM 8.8 mg/dL (8.5-10.1); GFR 73.7; POTASSIUM 4.1 mmol/L (3.5-5.1); TOTAL BILIRUBIN 0.3 mg/dL (0.2-1.0); TOTAL PROTEIN 6.2 g/dL (6.4-8.2)
[2020-06-28] MEDS: GABAPENTIN 300 MG CAPSULE. PO SCH ×2 (09:08→19:40)
[2020-06-28] MEDS: amLODIPine BESYLATE 10 MG TABLET PO SCH (09:08)
[2020-06-28] MEDS: METOPROLOL SUCC 24HR ER 25 MG TAB.ER.24H. PO SCH (09:09)
[2020-06-28] MEDS: CALCIUM CARBONATE 500 MG TAB.CHEW PO SCH ×3 (09:09→17:20)
[2020-06-28] MEDS: CHOLECALCIFEROL (VITAMIN D3) 50,000 UNIT CAPSULE PO SCH (13:37)
--- NOTE | 2020-06-28 14:47 | TX PLAN ---
Interdisciplinary Tx Plan Admission Information Jun 05, 2020 at 15:05 Legal Status (on Admission): Voluntary DPOA/Guardian Name: Adriana Olsen (Katy) Contact Other Contact Name: [facility] Other Contact Verified Code Status: Full Code Allergies: Coded Allergies: ramipril (Verified Allergy, Mild, Hives, 02/23/20) HANK Inhibitors (Verified Allergy, Unknown, 02/23/20) rifampin (Verified Allergy, Unknown, 02/23/20) Diagnoses Primary Diagnosis: Major Neurocognitive D/O Reasons for Admission: Aggressive, Relation/conflict, Agitated, Combative, Poor impulse control Problem in Patient's Words: Pt periodically has episodes with other residents Additional Admission Comments: According to the intake, pt was combative with another peer, pt hit the peer and threatens the peer. Pt is agitated. Problems Active Problems: Impulsive Poor boundaries Inactive Problems: Medication compliance Group participation Pt Strengths/Limitations Ability for [place]: Poor Cognitive Functioning/Ability: Fair Communication Skills/Ability: Fair Financial Resources: Fair Insight/Judgement: Poor Intellectual Ability: Fair Physical Health: Fair Social Skills: Poor Stability in Family: Good Stability in School/Work: Poor Verbal Skills: Fair Discharge Criteria Discharge Criteria: No need for close observ., Adequate arrangements @DC, Improved behavior, Improved mood/thought Preliminary Discharge Plan Preliminary DC Plan: Current Living Arrange. Special Precautions Fall Risk: Low Initial D/C Plan At this time, pt will discharge back to [facility] once stable. Identified Discharge Needs: Referral for psychiatry Currently Utilized Resources Currently Utilized Resources/P: Primary Care Physician Referrals Community Resources: Psychiatry services Identified Problems/Hx/Goals Objectives/Short-Term Goals Short Term Goals: Dec. Aggression, Dec. Outbursts, Improved Social Skills, Medication Stabilization, Monitor Med Effects Short Term Goals in Patient's: I want to go back to my own home. Interventions/Frequency Staff Interventions/Frequency&: Psychiatrist to assess pt at least 3x per week for medication management. Social Work to assess pt at least 2x per week for discharge planning and attention to barriers. Nursing to assess medications, manage behaviors and complete 15 minute checks on pt once stable. Encourage group participation in activities (if applicable) or 1:1 engagement based of the activity dept assessment. 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 Education: Pt graduated High school (12th grade) Community Follow-up Primary Care Physician Community Provider/Family Inpu: He just gets fixated on one thing about another resident and his behaviors increase with that person over time. Treatment Plan Explained Patient/Fudger had this treatment plan explained to him/her as indicated by the signature below and has been given the opportunity to ask questions and make suggestions: Date: Patient/Fudger Signature: Status Update Update Pt is currently eating 100% of meals and sleeping on average 7 hours per night. Pt is calm, cooperative and compliant with all medications. Pt is not able to return to his placement and will need referrals sent out. SW to work with pt family and his placement on getting referrals sent out. CLEMENT LANIER Jun 28, 2020 14:47
[2020-06-28 15:58] VITALS: BP 128/76
[2020-06-28] MEDS: QUEtiapine 25 MG TABLET. PO SCH (19:40)
[2020-06-28] MEDS: ATORVASTATIN CALCIUM 10 MG TABLET. PO SCH (19:40)
[2020-06-28] MEDS: traZODone 50 MG TABLET. PO SCH (19:40)
--- NOTE | 2020-06-28 20:44 | PDOC ---
Exam Note: Jassi Note: Please also refer to the separate dictated note~for this date of service dictated separately.~Patient seen individually. Discussed the patient with Nursing staff reviewed the chart.~Reviewed interim history and current functioning. Reviewed vital signs,~Labs/ Radiology~and current medications noted below. Continue current treatment with the changes noted in the dictated addendum note Assessment: Vital Signs/I&O: Vital Signs Date Time Temp Pulse Resp B/P (MAP) Pulse Ox O2 Delivery O2 Flow Rate FiO2 06/28/20 15:58 98.0 88 16 128/76 (93) 94 06/26/20 15:00 Room Air I & O 06/27/20 06/27/20 06/28/20 15:00 23:00 07:00 Intake Total 960 ml 360 ml Balance 960 ml 360 ml Labs: Laboratory Tests Test 06/28/20 06:25 White Blood Count 5.9 x10^3/uL (4.0-11.0) Red Blood Count 4.18 x10^6/uL (4.30-5.70) L Hemoglobin 12.9 g/dL (13.0-17.5) L Hematocrit 38.7 % (39.0-53.0) L Mean Corpuscular Volume 93 fL (79-100) Mean Corpuscular Hemoglobin 31 pg (25-35) Mean Corpuscular Hemoglobin Concent 33 g/dL (31-37) Red Cell Distribution Width 13.3 % (11.5-14.5) Platelet Count 266 x10^3/uL (140-400) Neutrophils (%) (Auto) 48 % (31-73) Lymphocytes (%) (Auto) 27 % (24-48) Monocytes (%) (Auto) 16 % (0-9) H Eosinophils (%) (Auto) 7 % (0-3) H Basophils (%) (Auto) 1 % (0-3) Neutrophils # (Auto) 2.8 x10^3uL (1.8-7.7) Lymphocytes # (Auto) 1.6 x10^3/uL (1.0-4.8) Monocytes # (Auto) 1.0 x10^3/uL (0.0-1.1) Eosinophils # (Auto) 0.4 x10^3/uL (0.0-0.7) Basophils # (Auto) 0.1 x10^3/uL (0.0-0.2) Sodium Level 142 mmol/L (136-145) Potassium Level 4.1 mmol/L (3.5-5.1) Chloride Level 107 mmol/L (98-107) Carbon Dioxide Level 26 mmol/L (21-32) Anion Gap 9 (6-14) Blood Urea Nitrogen 17 mg/dL (8-26) Creatinine 1.0 mg/dL (0.7-1.3) Estimated GFR (Cockcroft-Gault) 73.7 BUN/Creatinine Ratio 17 (6-20) Glucose Level 94 mg/dL (70-99) Calcium Level 8.8 mg/dL (8.5-10.1) Total Bilirubin 0.3 mg/dL (0.2-1.0) Aspartate Amino Transferase (AST) 22 U/L (15-37) Alanine Aminotransferase (ALT) 39 U/L (16-63) Alkaline Phosphatase 88 U/L (46-116) Total Protein 6.2 g/dL (6.4-8.2) L Albumin 3.1 g/dL (3.4-5.0) L Albumin/Globulin Ratio 1.0 (1.0-1.7) Current Medications: I have reviewed the current psychotropics carefully including drug interactions. Risk benefit ratio favors no change other than as noted in my dictated progress note. Diagnosis: Problems: (1) Schizoaffective disorder, bipolar type (2) Anxiety disorder, unspecified (3) Bipolar disorder, curr episode mixed, severe, with psychotic features (4) Major neurocognitive disorder (5) Impulse control disorder, unspecified OBDULIA MOLINA MD Jun 28, 2020 20:44
[2020-06-29 06:31] VITALS: BP 134/75
--- NOTE | 2020-06-29 07:46 | PDOC ---
Exam Note: Jassi Note: This note is a late entry for 06/27/2020 covers elements not covered in my initial note. Subjective: The patient was reviewed on telehealth rounds in the evening of 06/27/2020 with Santa HOLLINGSWORTH. Discussed with nursing staff, reviewed the chart. He slept 7-3/4 hours previous night. Review of Systems: Ambulation impaired with walker. No CV, , pulmonary, eye system symptoms on review. Mental Status Exam: Reasonably oriented. The patient was verbal, interactive. He talked about him trying to contact his daughter on the 06/27. He states he has left several messages for her but knows she is busy with her children and she has not called back and he was quite accepting of this. Speech is coherent. Abstraction is fair. Computation is impaired. Language function intact. Attention span is short. Mood and affect is improved. No suicidal or homicidal ideation. Laboratory Data: Reviewed. Impression: Bipolar disorder mixed with psychotic features. Mild cognitive impairment. Impulse control disorder unspecified. Anxiety disorder unspecified. Plan: No change from initial note. Assessment: Vital Signs/I&O: Vital Signs Date Time Temp Pulse Resp B/P (MAP) Pulse Ox O2 Delivery O2 Flow Rate FiO2 06/29/20 06:31 97.6 60 18 134/75 (94) 97 06/26/20 15:00 Room Air I & O 06/28/20 06/28/20 06/29/20 15:00 23:00 07:00 Intake Total 840 ml 720 ml Balance 840 ml 720 ml Current Medications: I have reviewed the current psychotropics carefully including drug interactions. Risk benefit ratio favors no change other than as noted in my dictated progress note. Diagnosis: Problems: (1) Schizoaffective disorder, bipolar type (2) Anxiety disorder, unspecified (3) Bipolar disorder, curr episode mixed, severe, with psychotic features (4) Major neurocognitive disorder (5) Impulse control disorder, unspecified OBDULIA MOLINA MD Jun 29, 2020 07:46
--- NOTE | 2020-06-29 08:03 | PDOC ---
Exam Note: Jassi Note: This note is a late entry for 06/28/2020 covers elements not covered in my initial note. Subjective: The patient was seen face to face in the morning of 06/28/2020 for treatment team meeting with Rhonda, criminal justice social worker, Rosana, activity therapy and Santa HOLLINGSWORTH. Discussed with nursing staff, reviewed the chart. He slept 7 hours previous night. Appetite is 100%. He was also seen face to face in the evening. Review of Systems: Ambulation impaired with walker. No CV, , pulmonary, eye system symptoms on review. Mental Status Exam: Reasonably oriented. Speech is coherent. Abstraction is fair. Computation is impaired. Language function intact. Attention span is fair. Mood and affect is improved. Laboratory Data: Reviewed. Impression: Bipolar disorder mixed with psychotic features. Mild cognitive impairment. Impulse control disorder unspecified. Anxiety disorder unspecified. Plan: No change from initial note. Assessment: Vital Signs/I&O: Vital Signs Date Time Temp Pulse Resp B/P (MAP) Pulse Ox O2 Delivery O2 Flow Rate FiO2 06/29/20 06:31 97.6 60 18 134/75 (94) 97 06/26/20 15:00 Room Air I & O 06/28/20 06/28/20 06/29/20 15:00 23:00 07:00 Intake Total 840 ml 720 ml Balance 840 ml 720 ml Current Medications: I have reviewed the current psychotropics carefully including drug interactions. Risk benefit ratio favors no change other than as noted in my dictated progress note. Diagnosis: Problems: (1) Schizoaffective disorder, bipolar type (2) Anxiety disorder, unspecified (3) Bipolar disorder, curr episode mixed, severe, with psychotic features (4) Major neurocognitive disorder OBDULIA MOLINA MD Jun 29, 2020 08:03
[2020-06-29] MEDS: GABAPENTIN 300 MG CAPSULE. PO SCH ×2 (09:11→20:02)
[2020-06-29] MEDS: METOPROLOL SUCC 24HR ER 25 MG TAB.ER.24H. PO SCH (09:11)
[2020-06-29] MEDS: CALCIUM CARBONATE 500 MG TAB.CHEW PO SCH ×3 (09:12→17:38)
[2020-06-29] MEDS: amLODIPine BESYLATE 10 MG TABLET PO SCH (09:12)
[2020-06-29 15:36] VITALS: BP 121/81
[2020-06-29] MEDS: ATORVASTATIN CALCIUM 10 MG TABLET. PO SCH (20:02)
[2020-06-29] MEDS: QUEtiapine 25 MG TABLET. PO SCH (20:02)
[2020-06-29] MEDS: traZODone 50 MG TABLET. PO SCH (20:02)
--- NOTE | 2020-06-29 20:58 | PDOC ---
Exam Note: Jassi Note: Please also refer to the separate dictated note~for this date of service dictated separately.~Patient seen individually. Discussed the patient with Nursing staff reviewed the chart.~Reviewed interim history and current functioning. Reviewed vital signs,~Labs/ Radiology~and current medications noted below. Continue current treatment with the changes noted in the dictated addendum note Assessment: Vital Signs/I&O: Vital Signs Date Time Temp Pulse Resp B/P (MAP) Pulse Ox O2 Delivery O2 Flow Rate FiO2 06/29/20 15:36 98.1 87 16 121/81 (94) 95 06/26/20 15:00 Room Air I & O 06/28/20 06/28/20 06/29/20 15:00 23:00 07:00 Intake Total 840 ml 720 ml Balance 840 ml 720 ml Current Medications: I have reviewed the current psychotropics carefully including drug interactions. Risk benefit ratio favors no change other than as noted in my dictated progress note. Diagnosis: Problems: (1) Schizoaffective disorder, bipolar type (2) Anxiety disorder, unspecified (3) Bipolar disorder, curr episode mixed, severe, with psychotic features (4) Major neurocognitive disorder (5) Impulse control disorder, unspecified OBDULIA MOLINA MD Jun 29, 2020 20:58
[2020-06-30 06:32] VITALS: BP 88/50
[2020-06-30] MEDS: GABAPENTIN 300 MG CAPSULE. PO SCH ×2 (08:36→19:37)
[2020-06-30] MEDS: amLODIPine BESYLATE 10 MG TABLET PO SCH (08:36)
[2020-06-30] MEDS: METOPROLOL SUCC 24HR ER 25 MG TAB.ER.24H. PO SCH (08:37)
[2020-06-30] MEDS: CALCIUM CARBONATE 500 MG TAB.CHEW PO SCH ×3 (08:37→17:23)
[2020-06-30 15:22] VITALS: BP 128/83
[2020-06-30] MEDS: QUEtiapine 25 MG TABLET. PO SCH (19:37)
[2020-06-30] MEDS: traZODone 50 MG TABLET. PO SCH (19:37)
[2020-06-30] MEDS: ATORVASTATIN CALCIUM 10 MG TABLET. PO SCH (19:37)
--- NOTE | 2020-06-30 20:55 | PDOC ---
Exam Note: Jassi Note: Please also refer to the separate dictated note~for this date of service dictated separately.~Patient seen individually. Discussed the patient with Nursing staff reviewed the chart.~Reviewed interim history and current functioning. Reviewed vital signs,~Labs/ Radiology~and current medications noted below. Continue current treatment with the changes noted in the dictated addendum note Assessment: Vital Signs/I&O: Vital Signs Date Time Temp Pulse Resp B/P (MAP) Pulse Ox O2 Delivery O2 Flow Rate FiO2 06/30/20 15:22 98.4 94 18 128/83 (98) 94 Room Air I & O 06/29/20 06/29/20 06/30/20 15:00 23:00 07:00 Intake Total 720 ml 360 ml Balance 720 ml 360 ml Current Medications: I have reviewed the current psychotropics carefully including drug interactions. Risk benefit ratio favors no change other than as noted in my dictated progress note. Diagnosis: Problems: (1) Schizoaffective disorder, bipolar type (2) Anxiety disorder, unspecified (3) Bipolar disorder, curr episode mixed, severe, with psychotic features (4) Major neurocognitive disorder (5) Impulse control disorder, unspecified OBDULIA MOLINA MD Jun 30, 2020 20:55
[2020-07-01] MEDS: CALCIUM CARBONATE 500 MG TAB.CHEW PO SCH ×3 (04:13→17:48)
[2020-07-01] MEDS: GABAPENTIN 300 MG CAPSULE. PO SCH ×2 (04:13→19:54)
[2020-07-01] MEDS: amLODIPine BESYLATE 10 MG TABLET PO SCH (04:15)
[2020-07-01] MEDS: METOPROLOL SUCC 24HR ER 25 MG TAB.ER.24H. PO SCH (04:16)
[2020-07-01 04:33] VITALS: BP 16/75
--- NOTE | 2020-07-01 07:54 | PDOC ---
Exam Note: Jassi Note: This note is a late entry for 06/29/2020 covers elements not covered in my initial note. Subjective: The patient was seen face to face in the evening of 06/29/2020 with Vel HOLLINGSWORTH. Discussed with nursing staff, reviewed the chart. He slept 7 hours previous night. For the most part he has been cooperative. He did yell at Brady the nursing aid on one occasion after she had asked for one of the female patients in his room to go back to her own room and the patient resented this. I addressed this with him individually on inappropriateness of doing this and he was accepting. He states he is again trying to call his daughter with no response from her. Review of Systems: Ambulation impaired with walker. No CV, , pulmonary, eye system symptoms on review. Mental Status Exam: Reasonably oriented. Speech is coherent. Abstraction is fair. Computation is impaired. Language function intact. Attention span is fair. Mood and affect is improved. Laboratory Data: Reviewed. Impression: Bipolar disorder mixed with psychotic features. Mild cognitive impairment. Impulse control disorder unspecified. Anxiety disorder unspecified. Plan: No change from initial note. Assessment: Vital Signs/I&O: Vital Signs Date Time Temp Pulse Resp B/P (MAP) Pulse Ox O2 Delivery O2 Flow Rate FiO2 07/01/20 04:33 98.1 59 14 16/75 (56) 96 Room Air I & O 06/30/20 06/30/20 07/01/20 15:00 23:00 07:00 Intake Total 840 ml 600 ml Balance 840 ml 600 ml Current Medications: I have reviewed the current psychotropics carefully including drug interactions. Risk benefit ratio favors no change other than as noted in my dictated progress note. Diagnosis: Problems: (1) Schizoaffective disorder, bipolar type (2) Anxiety disorder, unspecified (3) Bipolar disorder, curr episode mixed, severe, with psychotic features (4) Major neurocognitive disorder (5) Impulse control disorder, unspecified OBDULIA MOLINA MD Jul 01, 2020 07:54
--- NOTE | 2020-07-01 08:10 | PDOC ---
Exam Note: Jassi Note: This note is a late entry for 06/30/2020 covers elements not covered in my initial note. Subjective: The patient was seen face to face in the evening of 06/30/2020 with Niya HOLLINGSWORTH. Discussed with nursing staff, reviewed the chart. He slept 8 hours previous night. The patient has been fairly appropriate. Review of Systems: Ambulation impaired. No CV, , pulmonary, eye system symptoms on review. Mental Status Exam: Reasonably oriented. He is pleasant, interactive. He states he left another message for his daughter but she did not call back perhaps she is busy with her 4 children. Speech is coherent. Abstraction is fair. Computation is impaired. Language function intact. Attention span is fair. Mood and affect is improved. Laboratory Data: Reviewed. Impression: Bipolar disorder mixed with psychotic features. Mild cognitive impairment. Impulse control disorder unspecified. Anxiety disorder unspecified. Plan: No change from initial note. Assessment: Vital Signs/I&O: Vital Signs Date Time Temp Pulse Resp B/P (MAP) Pulse Ox O2 Delivery O2 Flow Rate FiO2 07/01/20 04:33 98.1 59 14 16/75 (56) 96 Room Air I & O 06/30/20 06/30/20 07/01/20 15:00 23:00 07:00 Intake Total 840 ml 600 ml Balance 840 ml 600 ml Current Medications: I have reviewed the current psychotropics carefully including drug interactions. Risk benefit ratio favors no change other than as noted in my dictated progress note. Diagnosis: Problems: (1) Schizoaffective disorder, bipolar type (2) Anxiety disorder, unspecified (3) Bipolar disorder, curr episode mixed, severe, with psychotic features (4) Major neurocognitive disorder (5) Impulse control disorder, unspecified OBDULIA MOLIAN MD Jul 01, 2020 08:10
[2020-07-01 16:13] VITALS: BP 126/79
[2020-07-01] MEDS: QUEtiapine 25 MG TABLET. PO SCH (19:54)
[2020-07-01] MEDS: traZODone 50 MG TABLET. PO SCH (19:54)
[2020-07-01] MEDS: ATORVASTATIN CALCIUM 10 MG TABLET. PO SCH (19:54)
[2020-07-01] MEDS: ACETAMINOPHEN 325 MG TABLET PO PRN (20:08)
--- NOTE | 2020-07-01 20:52 | PDOC ---
Exam Note: Jassi Note: Please also refer to the separate dictated note~for this date of service dictated separately.~Patient seen individually. Discussed the patient with Nursing staff reviewed the chart.~Reviewed interim history and current functioning. Reviewed vital signs,~Labs/ Radiology~and current medications noted below. Continue current treatment with the changes noted in the dictated addendum note Assessment: Vital Signs/I&O: Vital Signs Date Time Temp Pulse Resp B/P (MAP) Pulse Ox O2 Delivery O2 Flow Rate FiO2 07/01/20 16:13 98.7 69 18 126/79 (95) 95 07/01/20 04:33 Room Air I & O 06/30/20 06/30/20 07/01/20 15:00 23:00 07:00 Intake Total 840 ml 600 ml Balance 840 ml 600 ml Current Medications: I have reviewed the current psychotropics carefully including drug interactions. Risk benefit ratio favors no change other than as noted in my dictated progress note. Diagnosis: Problems: (1) Schizoaffective disorder, bipolar type (2) Anxiety disorder, unspecified (3) Bipolar disorder, curr episode mixed, severe, with psychotic features (4) Major neurocognitive disorder (5) Impulse control disorder, unspecified (6) Person under investigation for COVID-19 OBDULIA MOLINA MD Jul 01, 2020 20:52
[2020-07-02 06:00] VITALS: BP 124/68
[2020-07-02] MEDS: GABAPENTIN 300 MG CAPSULE. PO SCH ×2 (08:59→20:20)
[2020-07-02] MEDS: CALCIUM CARBONATE 500 MG TAB.CHEW PO SCH ×3 (08:59→17:43)
[2020-07-02] MEDS: amLODIPine BESYLATE 10 MG TABLET PO SCH (09:00)
[2020-07-02] MEDS: METOPROLOL SUCC 24HR ER 25 MG TAB.ER.24H. PO SCH (09:00)
[2020-07-02 15:00] VITALS: BP 123/74
[2020-07-02] MEDS: traZODone 50 MG TABLET. PO SCH (20:19)
[2020-07-02] MEDS: QUEtiapine 25 MG TABLET. PO SCH (20:20)
[2020-07-02] MEDS: ATORVASTATIN CALCIUM 10 MG TABLET. PO SCH (20:20)
--- NOTE | 2020-07-02 21:01 | PDOC ---
Exam Note: Jassi Note: Please also refer to the separate dictated note~for this date of service dictated separately.~Patient seen individually. Discussed the patient with Nursing staff reviewed the chart.~Reviewed interim history and current functioning. Reviewed vital signs,~Labs/ Radiology~and current medications noted below. Continue current treatment with the changes noted in the dictated addendum note Assessment: Vital Signs/I&O: Vital Signs Date Time Temp Pulse Resp B/P (MAP) Pulse Ox O2 Delivery O2 Flow Rate FiO2 07/02/20 15:00 98.4 85 18 123/74 (90) 98 Room Air I & O 07/01/20 07/01/20 07/02/20 15:00 23:00 07:00 Intake Total 685 ml 240 ml Balance 685 ml 240 ml Current Medications: I have reviewed the current psychotropics carefully including drug interactions. Risk benefit ratio favors no change other than as noted in my dictated progress note. Diagnosis: Problems: (1) Schizoaffective disorder, bipolar type (2) Anxiety disorder, unspecified (3) Bipolar disorder, curr episode mixed, severe, with psychotic features (4) Major neurocognitive disorder (5) Impulse control disorder, unspecified OBDULIA MOLINA MD Jul 02, 2020 21:01
[2020-07-03 06:29] VITALS: BP 156/88
--- NOTE | 2020-07-03 07:02 | PDOC ---
Exam Note: Jassi Note: This note is a late entry for 07/01/2020 covers elements not covered in my initial note. Subjective: The patient was seen face to face in the evening of 07/01/2020 with Vel HOLLINGSWORTH. Discussed with nursing staff, reviewed the chart. He slept 7-1/4 hours previous night. Review of Systems: Ambulation impaired. No CV, , pulmonary, eye system symptoms on review. Mental Status Exam: Reasonably oriented. I met with him in his room. The patient has been pleasant, cooperative, at times seems somewhat more confused in the evening as I met with him. He was talking about his son-in-law having been killed. This came out of nowhere and I addressed this with him. Speech is coherent. Abstraction is fair. Computation is impaired. Language function intact. Attention span is fair. Mood and affect is improved. Laboratory Data: Reviewed. Impression: Bipolar disorder mixed with psychotic features. Mild cognitive impairment. Impulse control disorder unspecified. Anxiety disorder unspecified. Plan: No change from initial note. Assessment: Vital Signs/I&O: Vital Signs Date Time Temp Pulse Resp B/P (MAP) Pulse Ox O2 Delivery O2 Flow Rate FiO2 07/03/20 06:29 97.8 58 17 156/88 (110) 97 Room Air I & O 07/02/20 07/02/20 07/03/20 15:00 23:00 07:00 Intake Total 480 ml 360 ml Balance 480 ml 360 ml Current Medications: I have reviewed the current psychotropics carefully including drug interactions. Risk benefit ratio favors no change other than as noted in my dictated progress note. Diagnosis: Problems: (1) Schizoaffective disorder, bipolar type (2) Anxiety disorder, unspecified (3) Bipolar disorder, curr episode mixed, severe, with psychotic features (4) Major neurocognitive disorder (5) Impulse control disorder, unspecified OBDULIA MOLINA MD Jul 03, 2020 07:02
--- NOTE | 2020-07-03 07:21 | PDOC ---
Exam Note: Jassi Note: This note is a late entry for 07/02/2020 covers elements not covered in my initial note. Subjective: The patient was seen on telehealth rounds in the evening of 07/02/2020 with Vel HOLLINGSWORTH. Discussed with nursing staff, reviewed the chart. He slept 6-1/2 hours previous night. He appears a little confused in the evening, better during the day, spends much time in his room. Review of Systems: Ambulation impaired. No CV, , pulmonary, eye system symptoms on review. Mental Status Exam: Reasonably oriented. He is pleasant, less delusional overall today. Speech is coherent. Abstraction is fair. Computation is impaired. Language function intact. Attention span is fair. Mood and affect is improved. Laboratory Data: Reviewed. Impression: Bipolar disorder mixed with psychotic features. Mild cognitive impa irment. Impulse control disorder unspecified. Anxiety disorder unspecified. Plan: No change from initial note. Assessment: Vital Signs/I&O: Vital Signs Date Time Temp Pulse Resp B/P (MAP) Pulse Ox O2 Delivery O2 Flow Rate FiO2 07/03/20 06:29 97.8 58 17 156/88 (110) 97 Room Air I & O 07/02/20 07/02/20 07/03/20 15:00 23:00 07:00 Intake Total 480 ml 360 ml Balance 480 ml 360 ml Current Medications: I have reviewed the current psychotropics carefully including drug interactions. Risk benefit ratio favors no change other than as noted in my dictated progress note. Diagnosis: Problems: (1) Schizoaffective disorder, bipolar type (2) Anxiety disorder, unspecified (3) Bipolar disorder, curr episode mixed, severe, with psychotic features (4) Major neurocognitive disorder (5) Impulse control disorder, unspecified OBDULIA MOLINA MD Jul 03, 2020 07:21
[2020-07-03] MEDS: GABAPENTIN 300 MG CAPSULE. PO SCH ×2 (09:42→19:58)
[2020-07-03] MEDS: amLODIPine BESYLATE 10 MG TABLET PO SCH (09:43)
[2020-07-03] MEDS: METOPROLOL SUCC 24HR ER 25 MG TAB.ER.24H. PO SCH (09:44)
[2020-07-03] MEDS: CALCIUM CARBONATE 500 MG TAB.CHEW PO SCH ×3 (09:45→17:40)
[2020-07-03 12:04] LABS: BASO # 0.1 x10^3/uL (0.0-0.2); BASO % 1 % (0-3); EOS # 0.2 x10^3/uL (0.0-0.7); EOS % 3 % (0-3); HEMATOCRIT 40.5 % (39.0-53.0); HEMOGLOBIN 13.8 g/dL (13.0-17.5); LYMPH % 16 % (24-48); MEAN CORPUSCULAR HEMOGLOBIN 31 pg (25-35); MEAN CORPUSCULAR HGB CONC 34 g/dL (31-37); MEAN CORPUSCULAR VOLUME 92 fL (79-100); MONO # 0.9 x10^3/uL (0.0-1.1); MONO % 14 % (0-9); NEUT # 4.1 x10^3uL (1.8-7.7); NEUT % 65 % (31-73); PLATELET COUNT 315 x10^3/uL (140-400); RED BLOOD COUNT 4.38 x10^6/uL (4.30-5.70); RED CELL DISTRIBUTION WIDTH 13.9 % (11.5-14.5); WHITE BLOOD COUNT 6.3 x10^3/uL (4.0-11.0)
[2020-07-03 12:26] LABS: ALBUMIN 3.5 g/dL (3.4-5.0); CALCIUM 9.1 mg/dL (8.5-10.1); GFR 73.7; POTASSIUM 4.1 mmol/L (3.5-5.1); TOTAL BILIRUBIN 0.4 mg/dL (0.2-1.0); TOTAL PROTEIN 6.9 g/dL (6.4-8.2)
[2020-07-03 15:55] VITALS: BP 131/74
[2020-07-03] MEDS: traZODone 50 MG TABLET. PO SCH (19:57)
[2020-07-03] MEDS: ATORVASTATIN CALCIUM 10 MG TABLET. PO SCH (19:59)
[2020-07-03] MEDS: QUEtiapine 25 MG TABLET. PO SCH (19:59)
--- NOTE | 2020-07-03 21:03 | PDOC ---
Exam Note: Jassi Note: Please also refer to the separate dictated note~for this date of service dictated separately.~Patient seen individually. Discussed the patient with Nursing staff reviewed the chart.~Reviewed interim history and current functioning. Reviewed vital signs,~Labs/ Radiology~and current medications noted below. Continue current treatment with the changes noted in the dictated addendum note Assessment: Vital Signs/I&O: Vital Signs Date Time Temp Pulse Resp B/P (MAP) Pulse Ox O2 Delivery O2 Flow Rate FiO2 07/03/20 15:55 98.1 75 16 131/74 (93) 96 07/03/20 06:29 Room Air I & O 07/02/20 07/02/20 07/03/20 15:00 23:00 07:00 Intake Total 480 ml 360 ml Balance 480 ml 360 ml Labs: Laboratory Tests Test 07/03/20 11:25 White Blood Count 6.3 x10^3/uL (4.0-11.0) Red Blood Count 4.38 x10^6/uL (4.30-5.70) Hemoglobin 13.8 g/dL (13.0-17.5) Hematocrit 40.5 % (39.0-53.0) Mean Corpuscular Volume 92 fL (79-100) Mean Corpuscular Hemoglobin 31 pg (25-35) Mean Corpuscular Hemoglobin Concent 34 g/dL (31-37) Red Cell Distribution Width 13.9 % (11.5-14.5) Platelet Count 315 x10^3/uL (140-400) Neutrophils (%) (Auto) 65 % (31-73) Lymphocytes (%) (Auto) 16 % (24-48) L Monocytes (%) (Auto) 14 % (0-9) H Eosinophils (%) (Auto) 3 % (0-3) Basophils (%) (Auto) 1 % (0-3) Neutrophils # (Auto) 4.1 x10^3uL (1.8-7.7) Lymphocytes # (Auto) 1.0 x10^3/uL (1.0-4.8) Monocytes # (Auto) 0.9 x10^3/uL (0.0-1.1) Eosinophils # (Auto) 0.2 x10^3/uL (0.0-0.7) Basophils # (Auto) 0.1 x10^3/uL (0.0-0.2) Sodium Level 139 mmol/L (136-145) Potassium Level 4.1 mmol/L (3.5-5.1) Chloride Level 104 mmol/L (98-107) Carbon Dioxide Level 28 mmol/L (21-32) Anion Gap 7 (6-14) Blood Urea Nitrogen 17 mg/dL (8-26) Creatinine 1.0 mg/dL (0.7-1.3) Estimated GFR (Cockcroft-Gault) 73.7 BUN/Creatinine Ratio 17 (6-20) Glucose Level 108 mg/dL (70-99) H Calcium Level 9.1 mg/dL (8.5-10.1) Total Bilirubin 0.4 mg/dL (0.2-1.0) Aspartate Amino Transferase (AST) 29 U/L (15-37) Alanine Aminotransferase (ALT) 47 U/L (16-63) Alkaline Phosphatase 108 U/L (46-116) Total Protein 6.9 g/dL (6.4-8.2) Albumin 3.5 g/dL (3.4-5.0) Albumin/Globulin Ratio 1.0 (1.0-1.7) Current Medications: I have reviewed the current psychotropics carefully including drug interactions. Risk benefit ratio favors no change other than as noted in my dictated progress note. Diagnosis: Problems: (1) Schizoaffective disorder, bipolar type (2) Anxiety disorder, unspecified (3) Bipolar disorder, curr episode mixed, severe, with psychotic features (4) Major neurocognitive disorder (5) Impulse control disorder, unspecified OBDULIA MOLINA MD Jul 03, 2020 21:03
[2020-07-04 05:47] VITALS: BP 126/80
[2020-07-04] MEDS: amLODIPine BESYLATE 10 MG TABLET PO SCH (09:15)
[2020-07-04] MEDS: GABAPENTIN 300 MG CAPSULE. PO SCH ×2 (09:15→19:42)
[2020-07-04] MEDS: CALCIUM CARBONATE 500 MG TAB.CHEW PO SCH ×3 (09:16→17:36)
[2020-07-04] MEDS: METOPROLOL SUCC 24HR ER 25 MG TAB.ER.24H. PO SCH (09:16)
[2020-07-04 15:00] VITALS: BP 133/81
[2020-07-04] MEDS: QUEtiapine 25 MG TABLET. PO SCH (19:42)
[2020-07-04] MEDS: ATORVASTATIN CALCIUM 10 MG TABLET. PO SCH (19:42)
[2020-07-04] MEDS: traZODone 50 MG TABLET. PO SCH (19:42)
--- NOTE | 2020-07-04 20:46 | PDOC ---
Exam Note: Jassi Note: Please also refer to the separate dictated note~for this date of service dictated separately.~Patient seen individually. Discussed the patient with Nursing staff reviewed the chart.~Reviewed interim history and current functioning. Reviewed vital signs,~Labs/ Radiology~and current medications noted below. Continue current treatment with the changes noted in the dictated addendum note Assessment: Vital Signs/I&O: Vital Signs Date Time Temp Pulse Resp B/P (MAP) Pulse Ox O2 Delivery O2 Flow Rate FiO2 07/04/20 15:00 98.3 80 16 133/81 (98) 99 Room Air I & O 07/03/20 07/03/20 07/04/20 15:00 23:00 07:00 Intake Total 840 ml 720 ml Balance 840 ml 720 ml Current Medications: I have reviewed the current psychotropics carefully including drug interactions. Risk benefit ratio favors no change other than as noted in my dictated progress note. Diagnosis: Problems: (1) Schizoaffective disorder, bipolar type (2) Anxiety disorder, unspecified (3) Bipolar disorder, curr episode mixed, severe, with psychotic features (4) Major neurocognitive disorder (5) Impulse control disorder, unspecified OBDULIA MOLINA MD Jul 04, 2020 20:46
[2020-07-05 05:59] VITALS: BP 145/81
--- NOTE | 2020-07-05 07:31 | PDOC ---
Exam Note: Jassi Note: This note is a late entry for 07/03/2020 covers elements not covered in my initial note. Subjective: The patient was seen on telehealth rounds in the evening of 07/03/2020 with Santa HOLLINGSWORTH. Discussed with nursing staff, reviewed the chart. He slept 7-1/2 hours previous night. He did well previous night and during the day, talking about wanting to go home and I addressed this with him during the telehealth rounds. Review of Systems: Ambulation impaired. No CV, , pulmonary, eye system symptoms on review. Mental Status Exam: Reasonably oriented. Speech is coherent. Abstraction is fair. Computation is impaired. Language function intact. Attention span is fair. Mood and affect is improved. Laboratory Data: Reviewed. Impression: Bipolar disorder mixed with psychotic features. Mild cognitive impairment. Impulse control disorder unspecified. Anxiety disorder unspecified. Plan: No change from initial note. Assessment: Vital Signs/I&O: Vital Signs Date Time Temp Pulse Resp B/P (MAP) Pulse Ox O2 Delivery O2 Flow Rate FiO2 07/05/20 05:59 97.7 58 18 145/81 (102) 97 07/04/20 15:00 Room Air I & O 07/04/20 07/04/20 07/05/20 15:00 23:00 07:00 Intake Total 480 ml 480 ml Balance 480 ml 480 ml Current Medications: I have reviewed the current psychotropics carefully including drug interactions. Risk benefit ratio favors no change other than as noted in my dictated progress note. Diagnosis: Problems: (1) Schizoaffective disorder, bipolar type (2) Anxiety disorder, unspecified (3) Bipolar disorder, curr episode mixed, severe, with psychotic features (4) Major neurocognitive disorder (5) Impulse control disorder, unspecified OBDULIA MOLINA MD Jul 05, 2020 07:31
--- NOTE | 2020-07-05 07:52 | PDOC ---
Exam Note: Jassi Note: This note is a late entry for 07/04/2020 covers elements not covered in my initial note. Subjective: The patient was seen on telehealth rounds in the evening of 07/04/2020 with Santa HOLLINGSWORTH. Discussed with nursing staff, reviewed the chart. He slept 8 hours previous night. The patient is pleasant, fairly interactive, cooperative, less delusional about someone being killed in his family as I questioned him. Review of Systems: Ambulation impaired. No CV, , pulmonary, eye system symptoms on review. Mental Status Exam: Reasonably oriented. He is pleasant, less delusional, fairly interactive. Speech is coherent. Abstraction is fair. Computation is impaired. Language function intact. Attention span is fair. Mood and affect is improved. Laboratory Data: Reviewed. Impression: Bipolar disorder mixed with psychotic features. Mild cognitive impairment. Impulse control disorder unspecified. Anxiety disorder unspecified. Plan: No change from initial note. Assessment: Vital Signs/I&O: Vital Signs Date Time Temp Pulse Resp B/P (MAP) Pulse Ox O2 Delivery O2 Flow Rate FiO2 07/05/20 05:59 97.7 58 18 145/81 (102) 97 07/04/20 15:00 Room Air I & O 07/04/20 07/04/20 07/05/20 14:59 22:59 06:59 Intake Total 1280 ml 480 ml Balance 1280 ml 480 ml Current Medications: I have reviewed the current psychotropics carefully including drug interactions. Risk benefit ratio favors no change other than as noted in my dictated progress note. Diagnosis: Problems: (1) Schizoaffective disorder, bipolar type (2) Anxiety disorder, unspecified (3) Bipolar disorder, curr episode mixed, severe, with psychotic features (4) Major neurocognitive disorder (5) Impulse control disorder, unspecified OBDULIA MOLINA MD Jul 05, 2020 07:52
[2020-07-05] MEDS: GABAPENTIN 300 MG CAPSULE. PO SCH ×2 (09:31→19:10)
[2020-07-05] MEDS: amLODIPine BESYLATE 10 MG TABLET PO SCH (09:32)
[2020-07-05] MEDS: CALCIUM CARBONATE 500 MG TAB.CHEW PO SCH ×3 (09:32→17:28)
[2020-07-05] MEDS: METOPROLOL SUCC 24HR ER 25 MG TAB.ER.24H. PO SCH (09:32)
[2020-07-05] MEDS: CHOLECALCIFEROL (VITAMIN D3) 50,000 UNIT CAPSULE PO SCH (09:33)
[2020-07-05 15:13] VITALS: BP 142/73
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
[2020-07-05] MEDS: traZODone 50 MG TABLET. PO SCH (19:10)
[2020-07-05] MEDS: ATORVASTATIN CALCIUM 10 MG TABLET. PO SCH (19:10)
[2020-07-05] MEDS: QUEtiapine 25 MG TABLET. PO SCH (19:10)
--- NOTE | 2020-07-05 21:18 | PDOC ---
Exam Note: Jassi Note: Please also refer to the separate dictated note~for this date of service dictated separately.~Patient seen individually. Discussed the patient with Nursing staff reviewed the chart.~Reviewed interim history and current functioning. Reviewed vital signs,~Labs/ Radiology~and current medications noted below. Continue current treatment with the changes noted in the dictated addendum note Assessment: Vital Signs/I&O: Vital Signs Date Time Temp Pulse Resp B/P (MAP) Pulse Ox O2 Delivery O2 Flow Rate FiO2 07/05/20 15:13 97.6 73 16 142/73 (96) 96 07/04/20 15:00 Room Air I & O 07/04/20 07/04/20 07/05/20 15:00 23:00 07:00 Intake Total 1280 ml 480 ml Balance 1280 ml 480 ml Current Medications: I have reviewed the current psychotropics carefully including drug interactions. Risk benefit ratio favors no change other than as noted in my dictated progress note. Diagnosis: Problems: (1) Schizoaffective disorder, bipolar type (2) Anxiety disorder, unspecified (3) Bipolar disorder, curr episode mixed, severe, with psychotic features (4) Major neurocognitive disorder (5) Impulse control disorder, unspecified OBDULIA MOLINA MD Jul 05, 2020 21:18
[2020-07-06 05:53] VITALS: BP 146/74
--- NOTE | 2020-07-06 07:55 | PDOC ---
Exam Note: Jassi Note: This note is a late entry for 07/05/2020 covers elements not covered in my initial note. Subjective: The patient was seen on telehealth rounds in the morning of 07/05/2020 for treatment team meeting with Samra Hsu and Shirin, social service liaison and Santa HOLLINGSWORTH. Discussed with nursing staff, reviewed the chart. He slept 7-1/4 hours previous night. Appetite is 100%. He gets a little delusional, gets confused. As I met with him he was talking that his daughter is from her first . Review of Systems: Ambulation impaired. No CV, , pulmonary, eye system symptoms on review. Mental Status Exam: Reasonably oriented. He was quite animated, verbal, interactive as I met with him. No suicidal or homicidal ideation. Speech is coherent. Abstraction is fair. Computation is impaired. Language function intact. Attention span is fair. Mood and affect is improved. Laboratory Data: Reviewed. Impression: Bipolar disorder mixed with psychotic features. Mild cognitive impairment. Impulse control disorder unspecified. Anxiety disorder unspecified. Plan: No change from initial note. Assessment: Vital Signs/I&O: Vital Signs Date Time Temp Pulse Resp B/P (MAP) Pulse Ox O2 Delivery O2 Flow Rate FiO2 07/06/20 05:53 97.6 56 18 146/74 (98) 98 07/04/20 15:00 Room Air I & O 07/05/20 07/05/20 07/06/20 15:00 23:00 07:00 Intake Total 685 ml 445 ml Balance 685 ml 445 ml Current Medications: I have reviewed the current psychotropics carefully including drug interactions. Risk benefit ratio favors no change other than as noted in my dictated progress note. Diagnosis: Problems: (1) Schizoaffective disorder, bipolar type (2) Anxiety disorder, unspecified (3) Bipolar disorder, curr episode mixed, severe, with psychotic features (4) Major neurocognitive disorder (5) Impulse control disorder, unspecified OBDULIA MOLINA MD Jul 06, 2020 07:55
[2020-07-06] MEDS: GABAPENTIN 300 MG CAPSULE. PO SCH ×2 (08:33→20:01)
[2020-07-06] MEDS: CALCIUM CARBONATE 500 MG TAB.CHEW PO SCH ×3 (08:33→17:22)
[2020-07-06] MEDS: METOPROLOL SUCC 24HR ER 25 MG TAB.ER.24H. PO SCH (08:33)
[2020-07-06] MEDS: amLODIPine BESYLATE 10 MG TABLET PO SCH (08:33)
[2020-07-06 15:46] VITALS: BP 133/81
[2020-07-06] MEDS: QUEtiapine 25 MG TABLET. PO SCH (20:00)
[2020-07-06] MEDS: traZODone 50 MG TABLET. PO SCH (20:00)
[2020-07-06] MEDS: ATORVASTATIN CALCIUM 10 MG TABLET. PO SCH (20:01)
--- NOTE | 2020-07-06 20:57 | PDOC ---
Exam Note: Jassi Note: Please also refer to the separate dictated note~for this date of service dictated separately.~Patient seen individually. Discussed the patient with Nursing staff reviewed the chart.~Reviewed interim history and current functioning. Reviewed vital signs,~Labs/ Radiology~and current medications noted below. Continue current treatment with the changes noted in the dictated addendum note Assessment: Vital Signs/I&O: Vital Signs Date Time Temp Pulse Resp B/P (MAP) Pulse Ox O2 Delivery O2 Flow Rate FiO2 07/06/20 15:46 97.7 83 16 133/81 (98) 95 07/04/20 15:00 Room Air I & O 07/05/20 07/05/20 07/06/20 15:00 23:00 07:00 Intake Total 685 ml 445 ml Balance 685 ml 445 ml Current Medications: I have reviewed the current psychotropics carefully including drug interactions. Risk benefit ratio favors no change other than as noted in my dictated progress note. Diagnosis: Problems: (1) Schizoaffective disorder, bipolar type (2) Anxiety disorder, unspecified (3) Bipolar disorder, curr episode mixed, severe, with psychotic features (4) Major neurocognitive disorder (5) Impulse control disorder, unspecified OBDULIA MOLINA MD Jul 06, 2020 20:57
[2020-07-07 06:33] VITALS: BP 115/64
[2020-07-07] MEDS: GABAPENTIN 300 MG CAPSULE. PO SCH ×2 (08:56→20:09)
[2020-07-07] MEDS: METOPROLOL SUCC 24HR ER 25 MG TAB.ER.24H. PO SCH (08:56)
[2020-07-07] MEDS: CALCIUM CARBONATE 500 MG TAB.CHEW PO SCH ×3 (08:57→18:04)
[2020-07-07] MEDS: amLODIPine BESYLATE 10 MG TABLET PO SCH (08:57)
[2020-07-07 15:47] VITALS: BP 133/85
[2020-07-07] MEDS: ATORVASTATIN CALCIUM 10 MG TABLET. PO SCH (20:09)
[2020-07-07] MEDS: traZODone 50 MG TABLET. PO SCH (20:09)
[2020-07-07] MEDS: QUEtiapine 25 MG TABLET. PO SCH (20:09)
--- NOTE | 2020-07-07 20:57 | PDOC ---
Exam Note: Jassi Note: Please also refer to the separate dictated note~for this date of service dictated separately.~Patient seen individually. Discussed the patient with Nursing staff reviewed the chart.~Reviewed interim history and current functioning. Reviewed vital signs,~Labs/ Radiology~and current medications noted below. Continue current treatment with the changes noted in the dictated addendum note Assessment: Vital Signs/I&O: Vital Signs Date Time Temp Pulse Resp B/P (MAP) Pulse Ox O2 Delivery O2 Flow Rate FiO2 07/07/20 15:47 97.8 88 16 133/85 (101) 96 07/04/20 15:00 Room Air I & O 07/06/20 07/06/20 07/07/20 15:00 23:00 07:00 Intake Total 1080 ml 600 ml Balance 1080 ml 600 ml Current Medications: I have reviewed the current psychotropics carefully including drug interactions. Risk benefit ratio favors no change other than as noted in my dictated progress note. Diagnosis: Problems: (1) Schizoaffective disorder, bipolar type (2) Anxiety disorder, unspecified (3) Bipolar disorder, curr episode mixed, severe, with psychotic features (4) Major neurocognitive disorder (5) Impulse control disorder, unspecified OBDULIA MOLINA MD Jul 07, 2020 20:57
[2020-07-08 05:39] VITALS: BP 120/67
[2020-07-08] MEDS: METOPROLOL SUCC 24HR ER 25 MG TAB.ER.24H. PO SCH (08:44)
[2020-07-08] MEDS: CALCIUM CARBONATE 500 MG TAB.CHEW PO SCH ×3 (08:44→17:40)
[2020-07-08] MEDS: GABAPENTIN 300 MG CAPSULE. PO SCH ×2 (08:44→19:43)
[2020-07-08] MEDS: amLODIPine BESYLATE 10 MG TABLET PO SCH (08:45)
[2020-07-08 15:40] VITALS: BP 144/79
[2020-07-08] MEDS: QUEtiapine 25 MG TABLET. PO SCH (19:43)
[2020-07-08] MEDS: traZODone 50 MG TABLET. PO SCH (19:43)
[2020-07-08] MEDS: ATORVASTATIN CALCIUM 10 MG TABLET. PO SCH (19:43)
--- NOTE | 2020-07-08 20:58 | PDOC ---
Exam Note: Jassi Note: This note is a late entry for 07/06/2020 covers elements not covered in my initial note. Subjective: The patient was seen face to face in the evening of 07/06/2020 with Vel HOLLINGSWORTH. Discussed with nursing staff, reviewed the chart. He slept 6 hours previous night. Basically he is the same as before. He gets a little delusional, gets confused. Review of Systems: Ambulation impaired. No CV, , pulmonary, eye system symptoms on review. Mental Status Exam: Reasonably oriented. I met with him in his room. He was again wanting the wart on his finger to be frozen. We will defer to Dr. Youngblood. I addressed this with him. He said he again tried to contact his daughter. No suicidal or homicidal ideation. Speech is coherent. Abstraction is fair. Computation is impaired. Language function intact. Attention span is fair. Mood and affect is improved. Laboratory Data: Reviewed. Impression: Bipolar disorder mixed with psychotic features. Mild cognitive impairment. Impulse control disorder unspecified. Anxiety disorder unspecified. Plan: No change from initial note. Assessment: Vital Signs/I&O: Vital Signs Date Time Temp Pulse Resp B/P (MAP) Pulse Ox O2 Delivery O2 Flow Rate FiO2 07/08/20 15:40 98.8 85 16 144/79 (100) 97 07/04/20 15:00 Room Air I & O 07/07/20 07/07/20 07/08/20 15:00 23:00 07:00 Intake Total 720 ml 480 ml Balance 720 ml 480 ml Current Medications: I have reviewed the current psychotropics carefully including drug interactions. Risk benefit ratio favors no change other than as noted in my dictated progress note. Diagnosis: Problems: (1) Schizoaffective disorder, bipolar type (2) Anxiety disorder, unspecified (3) Bipolar disorder, curr episode mixed, severe, with psychotic features (4) Major neurocognitive disorder (5) Impulse control disorder, unspecified OBDULIA MOLINA MD Jul 08, 2020 20:58
--- NOTE | 2020-07-08 21:14 | PDOC ---
Exam Note: Jassi Note: This note is a late entry for 07/07/2020 covers elements not covered in my initial note. Subjective: The patient was seen on telehealth rounds in the evening of 07/07/2020 with Vel HOLLINGSWORTH. Discussed with nursing staff, reviewed the chart. He slept 7-1/4 hours previous night. No changes from before. He is delusional, anxious. Review of Systems: Ambulation impaired. No CV, , pulmonary, eye system symptoms on review. Mental Status Exam: Reasonably oriented. He was more verbal, interactive as I met with him. No suicidal or homicidal ideation. Speech is coherent. Abstraction is fair. Computation is impaired. Language function intact. Attention span is fair. Mood and affect is anxious. Laboratory Data: Reviewed. Impression: Bipolar disorder mixed with psychotic features. Mild cognitive impairment. Impulse control disorder unspecified. Anxiety disorder unspecified. Plan: No change from initial note. Assessment: Vital Signs/I&O: Vital Signs Date Time Temp Pulse Resp B/P (MAP) Pulse Ox O2 Delivery O2 Flow Rate FiO2 07/08/20 15:40 98.8 85 16 144/79 (100) 97 07/04/20 15:00 Room Air I & O 07/07/20 07/07/20 07/08/20 15:00 23:00 07:00 Intake Total 720 ml 480 ml Balance 720 ml 480 ml Current Medications: I have reviewed the current psychotropics carefully including drug interactions. Risk benefit ratio favors no change other than as noted in my dictated progress note. Diagnosis: Problems: (1) Schizoaffective disorder, bipolar type (2) Anxiety disorder, unspecified (3) Bipolar disorder, curr episode mixed, severe, with psychotic features (4) Major neurocognitive disorder (5) Impulse control disorder, unspecified OBDULIA MOLINA MD Jul 08, 2020 21:14
--- NOTE | 2020-07-08 21:32 | PDOC ---
Exam Note: Jassi Note: Please also refer to the separate dictated note~for this date of service dictated separately.~Patient seen individually. Discussed the patient with Nursing staff reviewed the chart.~Reviewed interim history and current functioning. Reviewed vital signs,~Labs/ Radiology~and current medications noted below. Continue current treatment with the changes noted in the dictated addendum note Assessment: Vital Signs/I&O: Vital Signs Date Time Temp Pulse Resp B/P (MAP) Pulse Ox O2 Delivery O2 Flow Rate FiO2 07/08/20 15:40 98.8 85 16 144/79 (100) 97 07/04/20 15:00 Room Air I & O 07/07/20 07/07/20 07/08/20 15:00 23:00 07:00 Intake Total 720 ml 480 ml Balance 720 ml 480 ml Current Medications: I have reviewed the current psychotropics carefully including drug interactions. Risk benefit ratio favors no change other than as noted in my dictated progress note. Diagnosis: Problems: (1) Schizoaffective disorder, bipolar type (2) Anxiety disorder, unspecified (3) Bipolar disorder, curr episode mixed, severe, with psychotic features (4) Major neurocognitive disorder (5) Impulse control disorder, unspecified OBDULIA MOLINA MD Jul 08, 2020 21:32
[2020-07-09 06:09] VITALS: BP 115/64
--- NOTE | 2020-07-09 07:55 | PDOC ---
Exam Note: Jassi Note: This note is a late entry for 07/08/2020 covers elements not covered in my initial note. Subjective: The patient was seen on telehealth rounds in the evening of 07/08/2020 with Vel HOLLINGSWORTH. Discussed with nursing staff, reviewed the chart. He slept 6-3/4 hours previous night. The patient has been active doing word searches, quite involved and flexible in his thinking. Review of Systems: Ambulation impaired. No CV, , pulmonary, eye system symptoms on review. Mental Status Exam: Reasonably oriented. When I questioned the patient of what he has done all day, he was able to describe various thanksgiving activities and what he had at thanksgiving meal and how happy he was to be doing word searches, quite interactive, appropriate. Speech is coherent. Abstraction is fair. Computation is impaired. Language function intact. Attention span is fair. Mood and affect is anxious. Laboratory Data: Reviewed. Impression: Bipolar disorder mixed with psychotic features. Mild cognitive impairment. Impulse control disorder unspecified. Anxiety disorder unspecified. Plan: No change from initial note. Assessment: Vital Signs/I&O: Vital Signs Date Time Temp Pulse Resp B/P (MAP) Pulse Ox O2 Delivery O2 Flow Rate FiO2 07/09/20 06:09 98.3 57 16 115/64 (81) 98 Room Air I & O 07/08/20 07/08/20 07/09/20 15:00 23:00 07:00 Intake Total 840 ml 360 ml Balance 840 ml 360 ml Current Medications: I have reviewed the current psychotropics carefully including drug interactions. Risk benefit ratio favors no change other than as noted in my dictated progress note. Diagnosis: Problems: (1) Schizoaffective disorder, bipolar type (2) Anxiety disorder, unspecified (3) Bipolar disorder, curr episode mixed, severe, with psychotic features (4) Major neurocognitive disorder (5) Impulse control disorder, unspecified OBDULIA MOLINA MD Jul 09, 2020 07:55
[2020-07-09] MEDS: CALCIUM CARBONATE 500 MG TAB.CHEW PO SCH ×3 (08:10→17:34)
[2020-07-09] MEDS: amLODIPine BESYLATE 10 MG TABLET PO SCH (08:11)
[2020-07-09] MEDS: METOPROLOL SUCC 24HR ER 25 MG TAB.ER.24H. PO SCH (08:11)
[2020-07-09] MEDS: GABAPENTIN 300 MG CAPSULE. PO SCH ×2 (08:13→19:36)
[2020-07-09 15:42] VITALS: BP 133/90
[2020-07-09] MEDS: ATORVASTATIN CALCIUM 10 MG TABLET. PO SCH (19:36)
[2020-07-09] MEDS: QUEtiapine 25 MG TABLET. PO SCH (19:36)
[2020-07-09] MEDS: traZODone 50 MG TABLET. PO SCH (19:36)
--- NOTE | 2020-07-09 20:48 | PDOC ---
Exam Note: Jassi Note: Please also refer to the separate dictated note~for this date of service dictated separately.~Patient seen individually. Discussed the patient with Nursing staff reviewed the chart.~Reviewed interim history and current functioning. Reviewed vital signs,~Labs/ Radiology~and current medications noted below. Continue current treatment with the changes noted in the dictated addendum note Assessment: Vital Signs/I&O: Vital Signs Date Time Temp Pulse Resp B/P (MAP) Pulse Ox O2 Delivery O2 Flow Rate FiO2 07/09/20 15:42 98.1 88 18 133/90 (104) 95 07/09/20 06:09 Room Air I & O 07/08/20 07/08/20 07/09/20 15:00 23:00 07:00 Intake Total 840 ml 360 ml Balance 840 ml 360 ml Current Medications: I have reviewed the current psychotropics carefully including drug interactions. Risk benefit ratio favors no change other than as noted in my dictated progress note. Diagnosis: Problems: (1) Schizoaffective disorder, bipolar type (2) Anxiety disorder, unspecified (3) Bipolar disorder, curr episode mixed, severe, with psychotic features (4) Major neurocognitive disorder (5) Impulse control disorder, unspecified OBDULIA MOLINA MD Jul 09, 2020 20:48
[2020-07-10 06:29] VITALS: BP 150/72
[2020-07-10 07:00] LABS: BASO # 0.1 x10^3/uL (0.0-0.2); BASO % 2 % (0-3); EOS # 0.4 x10^3/uL (0.0-0.7); EOS % 6 % (0-3); HEMATOCRIT 40.2 % (39.0-53.0); HEMOGLOBIN 13.4 g/dL (13.0-17.5); LYMPH # 1.6 x10^3/uL (1.0-4.8); LYMPH % 26 % (24-48); MEAN CORPUSCULAR HEMOGLOBIN 31 pg (25-35); MEAN CORPUSCULAR HGB CONC 33 g/dL (31-37); MEAN CORPUSCULAR VOLUME 93 fL (79-100); MONO # 0.9 x10^3/uL (0.0-1.1); MONO % 15 % (0-9); NEUT # 3.1 x10^3uL (1.8-7.7); NEUT % 51 % (31-73); PLATELET COUNT 259 x10^3/uL (140-400); RED BLOOD COUNT 4.31 x10^6/uL (4.30-5.70); RED CELL DISTRIBUTION WIDTH 13.8 % (11.5-14.5)
[2020-07-10 07:15] LABS: ALBUMIN 3.2 g/dL (3.4-5.0); CALCIUM 8.7 mg/dL (8.5-10.1); CREATININE 1.1 mg/dL (0.7-1.3); POTASSIUM 4.2 mmol/L (3.5-5.1); TOTAL BILIRUBIN 0.4 mg/dL (0.2-1.0); TOTAL PROTEIN 6.5 g/dL (6.4-8.2)
[2020-07-10] MEDS: amLODIPine BESYLATE 10 MG TABLET PO SCH (08:28)
[2020-07-10] MEDS: GABAPENTIN 300 MG CAPSULE. PO SCH ×2 (08:28→19:48)
[2020-07-10] MEDS: CALCIUM CARBONATE 500 MG TAB.CHEW PO SCH ×3 (08:29→18:00)
[2020-07-10] MEDS: METOPROLOL SUCC 24HR ER 25 MG TAB.ER.24H. PO SCH (08:29)
[2020-07-10 16:41] VITALS: BP 143/84
[2020-07-10] MEDS: ATORVASTATIN CALCIUM 10 MG TABLET. PO SCH (19:48)
[2020-07-10] MEDS: traZODone 50 MG TABLET. PO SCH (19:48)
[2020-07-10] MEDS: QUEtiapine 25 MG TABLET. PO SCH (19:48)
--- NOTE | 2020-07-10 20:59 | PDOC ---
Exam Note: Jassi Note: This note is a late entry for 07/09/2020 covers elements not covered in my initial note. Subjective: The patient was seen on telehealth rounds in the evening of 07/09/2020 with Zuleima HOLLINGSWORTH as the unit is on a lockdown by the [place] [employer] because there were 2 patients who turned out positive for COVID-19 and no admission or discharges can be done for next 2 weeks due to the quarantine requirements. Discussed with nursing staff, reviewed the chart. He slept 7-3/4 hours previous night. I addressed the above changes due to COVID-19 with him. He did not fully comprehended but was otherwise pleasant. He keeps busy doing his crossword puzzles. Review of Systems: Ambulation impaired. No CV, , pulmonary, eye system symptoms on review. Mental Status Exam: Reasonably oriented. Speech is coherent. Abstraction is fair. Computation is impaired. Language function intact. Attention span is fair. Mood and affect is anxious. Laboratory Data: Reviewed. Impression: Bipolar disorder mixed with psychotic features. Mild cognitive impairment. Impulse control disorder unspecified. Anxiety disorder unspecified. Plan: No change from initial note. Assessment: Vital Signs/I&O: Vital Signs Date Time Temp Pulse Resp B/P (MAP) Pulse Ox O2 Delivery O2 Flow Rate FiO2 07/10/20 16:41 97.4 85 18 143/84 (103) 96 07/10/20 06:29 Room Air I & O 0 07/09/20 07/09/20 07/10/20 15:00 23:00 07:00 Intake Total 680 ml 720 ml Balance 680 ml 720 ml Labs: Laboratory Tests Test 07/10/20 06:25 White Blood Count 6.0 x10^3/uL (4.0-11.0) Red Blood Count 4.31 x10^6/uL (4.30-5.70) Hemoglobin 13.4 g/dL (13.0-17.5) Hematocrit 40.2 % (39.0-53.0) Mean Corpuscular Volume 93 fL (79-100) Mean Corpuscular Hemoglobin 31 pg (25-35) Mean Corpuscular Hemoglobin Concent 33 g/dL (31-37) Red Cell Distribution Width 13.8 % (11.5-14.5) Platelet Count 259 x10^3/uL (140-400) Neutrophils (%) (Auto) 51 % (31-73) Lymphocytes (%) (Auto) 26 % (24-48) Monocytes (%) (Auto) 15 % (0-9) H Eosinophils (%) (Auto) 6 % (0-3) H Basophils (%) (Auto) 2 % (0-3) Neutrophils # (Auto) 3.1 x10^3uL (1.8-7.7) Lymphocytes # (Auto) 1.6 x10^3/uL (1.0-4.8) Monocytes # (Auto) 0.9 x10^3/uL (0.0-1.1) Eosinophils # (Auto) 0.4 x10^3/uL (0.0-0.7) Basophils # (Auto) 0.1 x10^3/uL (0.0-0.2) Sodium Level 140 mmol/L (136-145) Potassium Level 4.2 mmol/L (3.5-5.1) Chloride Level 106 mmol/L (98-107) Carbon Dioxide Level 30 mmol/L (21-32) Anion Gap 4 (6-14) L Blood Urea Nitrogen 16 mg/dL (8-26) Creatinine 1.1 mg/dL (0.7-1.3) Estimated GFR (Cockcroft-Gault) 66.0 BUN/Creatinine Ratio 15 (6-20) Glucose Level 90 mg/dL (70-99) Calcium Level 8.7 mg/dL (8.5-10.1) Total Bilirubin 0.4 mg/dL (0.2-1.0) Aspartate Amino Transferase (AST) 27 U/L (15-37) Alanine Aminotransferase (ALT) 46 U/L (16-63) Alkaline Phosphatase 102 U/L (46-116) Total Protein 6.5 g/dL (6.4-8.2) Albumin 3.2 g/dL (3.4-5.0) L Albumin/Globulin Ratio 1.0 (1.0-1.7) Current Medications: I have reviewed the current psychotropics carefully including drug interactions. Risk benefit ratio favors no change other than as noted in my dictated progress note. Diagnosis: Problems: (1) Schizoaffective disorder, bipolar type (2) Anxiety disorder, unspecified (3) Bipolar disorder, curr episode mixed, severe, with psychotic features (4) Major neurocognitive disorder (5) Impulse control disorder, unspecified OBDULIA MOLINA MD Jul 10, 2020 20:59
--- NOTE | 2020-07-10 21:10 | PDOC ---
Exam Note: Jassi Note: Please also refer to the separate dictated note~for this date of service dictated separately.~Patient seen individually. Discussed the patient with Nursing staff reviewed the chart.~Reviewed interim history and current functioning. Reviewed vital signs,~Labs/ Radiology~and current medications noted below. Continue current treatment with the changes noted in the dictated addendum note Assessment: Vital Signs/I&O: Vital Signs Date Time Temp Pulse Resp B/P (MAP) Pulse Ox O2 Delivery O2 Flow Rate FiO2 07/10/20 16:41 97.4 85 18 143/84 (103) 96 07/10/20 06:29 Room Air I & O 07/09/20 07/09/20 07/10/20 15:00 23:00 07:00 Intake Total 680 ml 720 ml Balance 680 ml 720 ml Labs: Laboratory Tests Test 07/10/20 06:25 White Blood Count 6.0 x10^3/uL (4.0-11.0) Red Blood Count 4.31 x10^6/uL (4.30-5.70) Hemoglobin 13.4 g/dL (13.0-17.5) Hematocrit 40.2 % (39.0-53.0) Mean Corpuscular Volume 93 fL (79-100) Mean Corpuscular Hemoglobin 31 pg (25-35) Mean Corpuscular Hemoglobin Concent 33 g/dL (31-37) Red Cell Distribution Width 13.8 % (11.5-14.5) Platelet Count 259 x10^3/uL (140-400) Neutrophils (%) (Auto) 51 % (31-73) Lymphocytes (%) (Auto) 26 % (24-48) Monocytes (%) (Auto) 15 % (0-9) H Eosinophils (%) (Auto) 6 % (0-3) H Basophils (%) (Auto) 2 % (0-3) Neutrophils # (Auto) 3.1 x10^3uL (1.8-7.7) Lymphocytes # (Auto) 1.6 x10^3/uL (1.0-4.8) Monocytes # (Auto) 0.9 x10^3/uL (0.0-1.1) Eosinophils # (Auto) 0.4 x10^3/uL (0.0-0.7) Basophils # (Auto) 0.1 x10^3/uL (0.0-0.2) Sodium Level 140 mmol/L (136-145) Potassium Level 4.2 mmol/L (3.5-5.1) Chloride Level 106 mmol/L (98-107) Carbon Dioxide Level 30 mmol/L (21-32) Anion Gap 4 (6-14) L Blood Urea Nitrogen 16 mg/dL (8-26) Creatinine 1.1 mg/dL (0.7-1.3) Estimated GFR (Cockcroft-Gault) 66.0 BUN/Creatinine Ratio 15 (6-20) Glucose Level 90 mg/dL (70-99) Calcium Level 8.7 mg/dL (8.5-10.1) Total Bilirubin 0.4 mg/dL (0.2-1.0) Aspartate Amino Transferase (AST) 27 U/L (15-37) Alanine Aminotransferase (ALT) 46 U/L (16-63) Alkaline Phosphatase 102 U/L (46-116) Total Protein 6.5 g/dL (6.4-8.2) Albumin 3.2 g/dL (3.4-5.0) L Albumin/Globulin Ratio 1.0 (1.0-1.7) Current Medications: I have reviewed the current psychotropics carefully including drug interactions. Risk benefit ratio favors no change other than as noted in my dictated progress note. Diagnosis: Problems: (1) Schizoaffective disorder, bipolar type (2) Anxiety disorder, unspecified (3) Bipolar disorder, curr episode mixed, severe, with psychotic features (4) Major neurocognitive disorder (5) Impulse control disorder, unspecified OBDULIA MOLINA MD Jul 10, 2020 21:10
[2020-07-11 06:20] VITALS: BP 129/76
[2020-07-11] MEDS: GABAPENTIN 300 MG CAPSULE. PO SCH ×2 (08:14→19:52)
[2020-07-11] MEDS: amLODIPine BESYLATE 10 MG TABLET PO SCH (08:14)
[2020-07-11] MEDS: METOPROLOL SUCC 24HR ER 25 MG TAB.ER.24H. PO SCH (08:15)
[2020-07-11] MEDS: CALCIUM CARBONATE 500 MG TAB.CHEW PO SCH ×3 (08:15→17:45)
[2020-07-11 15:58] VITALS: BP 145/82
[2020-07-11] MEDS: QUEtiapine 25 MG TABLET. PO SCH (19:52)
[2020-07-11] MEDS: traZODone 50 MG TABLET. PO SCH (19:52)
[2020-07-11] MEDS: ATORVASTATIN CALCIUM 10 MG TABLET. PO SCH (19:52)
--- NOTE | 2020-07-12 00:24 | PDOC ---
Exam Note: Jassi Note: This is a late entry for 07/11/2020. Please also refer to the separate dictated note~for this date of service dictated separately.~Patient seen individually. Discussed the patient with Nursing staff reviewed the chart.~Reviewed interim history and current functioning. Reviewed vital signs,~Labs/ Radiology~and cur rent medications noted below. Continue current treatment with the changes noted in the dictated addendum note Assessment: Vital Signs/I&O: Vital Signs Date Time Temp Pulse Resp B/P (MAP) Pulse Ox O2 Delivery O2 Flow Rate FiO2 07/11/20 15:58 97.4 81 16 145/82 (103) 97 07/10/20 06:29 Room Air I & O 07/11/20 07/11/20 07/12/20 15:00 23:00 07:00 Intake Total 960 ml 600 ml Balance 960 ml 600 ml Current Medications: I have reviewed the current psychotropics carefully including drug interactions. Risk benefit ratio favors no change other than as noted in my dictated progress note. Diagnosis: Problems: (1) Schizoaffective disorder, bipolar type (2) Anxiety disorder, unspecified (3) Bipolar disorder, curr episode mixed, severe, with psychotic features (4) Major neurocognitive disorder (5) Impulse control disorder, unspecified OBDULIA MOLINA MD Jul 12, 2020 00:24
[2020-07-12 05:58] VITALS: BP 121/58
[2020-07-12] MEDS: GABAPENTIN 300 MG CAPSULE. PO SCH ×2 (08:07→20:02)
[2020-07-12] MEDS: amLODIPine BESYLATE 10 MG TABLET PO SCH (08:08)
[2020-07-12] MEDS: METOPROLOL SUCC 24HR ER 25 MG TAB.ER.24H. PO SCH (08:08)
[2020-07-12] MEDS: CALCIUM CARBONATE 500 MG TAB.CHEW PO SCH ×3 (08:09→17:10)
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
[2020-07-12 14:27] VITALS: BP 139/77
[2020-07-12] MEDS: CHOLECALCIFEROL (VITAMIN D3) 50,000 UNIT CAPSULE PO SCH (17:10)
[2020-07-12] MEDS: ATORVASTATIN CALCIUM 10 MG TABLET. PO SCH (20:01)
[2020-07-12] MEDS: QUEtiapine 25 MG TABLET. PO SCH (20:01)
[2020-07-12] MEDS: traZODone 50 MG TABLET. PO SCH (20:01)
--- NOTE | 2020-07-12 20:51 | PDOC ---
Exam Note: Jassi Note: Please also refer to the separate dictated note~for this date of service dictated separately.~Patient seen individually. Discussed the patient with Nursing staff reviewed the chart.~Reviewed interim history and current functioning. Reviewed vital signs,~Labs/ Radiology~and current medications noted below. Continue current treatment with the changes noted in the dictated addendum note Assessment: Vital Signs/I&O: Vital Signs Date Time Temp Pulse Resp B/P (MAP) Pulse Ox O2 Delivery O2 Flow Rate FiO2 07/12/20 14:27 97.6 84 17 139/77 (97) 96 Room Air I & O 07/11/20 07/11/20 07/12/20 15:00 23:00 07:00 Intake Total 960 ml 600 ml Balance 960 ml 600 ml Current Medications: I have reviewed the current psychotropics carefully including drug interactions. Risk benefit ratio favors no change other than as noted in my dictated progress note. Diagnosis: Problems: (1) Schizoaffective disorder, bipolar type (2) Anxiety disorder, unspecified (3) Bipolar disorder, curr episode mixed, severe, with psychotic features (4) Major neurocognitive disorder (5) Impulse control disorder, unspecified OBDULIA MOLINA MD Jul 12, 2020 20:51
[2020-07-13 05:29] VITALS: BP 130/69
[2020-07-13] MEDS: METOPROLOL SUCC 24HR ER 25 MG TAB.ER.24H. PO SCH (07:50)
[2020-07-13] MEDS: GABAPENTIN 300 MG CAPSULE. PO SCH ×2 (07:50→19:38)
[2020-07-13] MEDS: CALCIUM CARBONATE 500 MG TAB.CHEW PO SCH ×3 (07:50→17:24)
[2020-07-13] MEDS: amLODIPine BESYLATE 10 MG TABLET PO SCH (07:51)
--- NOTE | 2020-07-13 08:40 | PDOC ---
Exam Note: Jassi Note: This note is a late entry for 07/10/2020 covers elements not covered in my initial note. Subjective: The patient was seen on telehealth rounds in the evening of 07/10/2020 with Essence HOLLINGSWORTH as the unit is on a lockdown by the [facility] because there were 2 patients who turned out positive for COVID-19 and no admission or discharges can be done for next 2 weeks due to the quarantine requirements. Discussed with nursing staff, reviewed the chart. He slept 8 hours previous night. Review of Systems: Ambulation impaired. No CV, , pulmonary, eye system symptoms on review. Mental Status Exam: Reasonably oriented. I addressed the patient about Covid exposure on the unit and he was accepting of it not fully understanding. He has been working on Crossword puzzles. Speech is coherent. Abstraction is fair. Computation is impaired. Language function intact. Attention span is fair. Mood and affect is anxious. Laboratory Data: Reviewed. Impression: Bipolar disorder mixed with psychotic features. Mild cognitive impairment. Impulse control disorder unspecified. Anxiety disorder unspecified. Plan: No change from initial note. Assessment: Vital Signs/I&O: Vital Signs Date Time Temp Pulse Resp B/P (MAP) Pulse Ox O2 Delivery O2 Flow Rate FiO2 07/13/20 07:51 62 130/69 07/13/20 05:29 97.6 18 96 07/12/20 14:27 Room Air I & O 07/12/20 07/12/20 07/13/20 15:00 23:00 07:00 Intake Total 720 ml 480 ml Balance 720 ml 480 ml Current Medications: I have reviewed the current psychotropics carefully including drug interactions. Risk benefit ratio favors no change other than as noted in my dictated progress note. Diagnosis: Problems: (1) Schizoaffective disorder, bipolar type (2) Anxiety disorder, unspecified (3) Bipolar disorder, curr episode mixed, severe, with psychotic features (4) Major neurocognitive disorder (5) Impulse control disorder, unspecified BODULIA MOLINA MD Jul 13, 2020 08:40
--- NOTE | 2020-07-13 08:57 | PDOC ---
Exam Note: Jassi Note: This note is a late entry for 07/11/2020 covers elements not covered in my initial note. Subjective: The patient was seen on telehealth rounds in the evening of 07/11/2020 with Essence HOLLINGSWORTH as the unit is on a lockdown by the [facility] of COVID-19 exposure on the unit and no admission or discharges can be done for next 2 weeks due to the quarantine requirements. Discussed with nursing staff, reviewed the chart. He slept 7-1/2 hours previous night. Review of Systems: Ambulation impaired. No CV, , pulmonary, eye system symptoms on review. Mental Status Exam: Reasonably oriented. We discussed his discharge plans given the current Covid status on the unit and he seemed to understand. Speech is coherent. Abstraction is fair. Computation is impaired. Language function intact. Attention span is fair. Mood and affect is anxious. Laboratory Data: Reviewed. Impression: Bipolar disorder mixed with psychotic features. Mild cognitive impairment. Impulse control disorder unspecified. Anxiety disorder unspecified. Plan: No change from initial note. Assessment: Vital Signs/I&O: Vital Signs Date Time Temp Pulse Resp B/P (MAP) Pulse Ox O2 Delivery O2 Flow Rate FiO2 07/13/20 07:51 62 130/69 07/13/20 05:29 97.6 18 96 07/12/20 14:27 Room Air I & O 07/12/20 07/12/20 07/13/20 14:59 22:59 06:59 Intake Total 720 ml 480 ml Balance 720 ml 480 ml Current Medications: I have reviewed the current psychotropics carefully including drug interactions. Risk benefit ratio favors no change other than as noted in my dictated progress note. Diagnosis: Problems: (1) Schizoaffective disorder, bipolar type (2) Anxiety disorder, unspecified (3) Bipolar disorder, curr episode mixed, severe, with psychotic features (4) Major neurocognitive disorder (5) Impulse control disorder, unspecified OBDULIA MOLINA MD Jul 13, 2020 08:57
--- NOTE | 2020-07-13 09:15 | PDOC ---
Exam Note: Jassi Note: This note is a late entry for 07/12/2020 covers elements not covered in my initial note. Subjective: The patient was seen on telehealth rounds in the morning of 07/12/2020 for treatment team meeting with Shirin Cruz, social sciences chair, Rosana, activity therapy and Santa HOLLINGSWORTH as the unit is on a lockdown by the [facility] of COVID-19 exposure on the unit and no admission or discharges can be done for next 2 weeks due to the quarantine requirements. Discussed with nursing staff, reviewed the chart. He slept 7-1/2 hours previous night. Appetite is 100%. He is making inappropriate comments at times to staff but redirects. Review of Systems: Ambulation impaired. No CV, , pulmonary, eye system symptoms on review. Mental Status Exam: Reasonably oriented. Speech is coherent. Abstraction is fair. Computation is impaired. Language function intact. Attention span is fair. Mood and affect is anxious. Laboratory Data: Reviewed. Impression: Bipolar disorder mixed with psychotic features. Mild cognitive impairment. Impulse control disorder unspecified. Anxiety disorder unspecified. Plan: No change from initial note. Assessment: Vital Signs/I&O: Vital Signs Date Time Temp Pulse Resp B/P (MAP) Pulse Ox O2 Delivery O2 Flow Rate FiO2 07/13/20 07:51 62 130/69 07/13/20 05:29 97.6 18 96 07/12/20 14:27 Room Air I & O 07/12/20 07/12/20 07/13/20 15:00 23:00 07:00 Intake Total 720 ml 480 ml Balance 720 ml 480 ml Current Medications: I have reviewed the current psychotropics carefully including drug interactions. Risk benefit ratio favors no change other than as noted in my dictated progress note. Diagnosis: Problems: (1) Schizoaffective disorder, bipolar type (2) Anxiety disorder, unspecified (3) Bipolar disorder, curr episode mixed, severe, with psychotic features (4) Major neurocognitive disorder (5) Impulse control disorder, unspecified OBDULIA MOLINA MD Jul 13, 2020 09:15
[2020-07-13 15:42] VITALS: BP 134/76
[2020-07-13] MEDS: QUEtiapine 25 MG TABLET. PO SCH (19:38)
[2020-07-13] MEDS: ATORVASTATIN CALCIUM 10 MG TABLET. PO SCH (19:38)
[2020-07-13] MEDS: traZODone 50 MG TABLET. PO SCH (19:38)
--- NOTE | 2020-07-13 21:02 | PDOC ---
Exam Note: Jassi Note: Please also refer to the separate dictated note~for this date of service dictated separately.~Patient seen individually. Discussed the patient with Nursing staff reviewed the chart.~Reviewed interim history and current functioning. Reviewed vital signs,~Labs/ Radiology~and current medications noted below. Continue current treatment with the changes noted in the dictated addendum note Assessment: Vital Signs/I&O: Vital Signs Date Time Temp Pulse Resp B/P (MAP) Pulse Ox O2 Delivery O2 Flow Rate FiO2 07/13/20 15:42 97.5 76 18 134/76 (95) 95 07/12/20 14:27 Room Air I & O 07/12/20 07/12/20 07/13/20 15:00 23:00 07:00 Intake Total 720 ml 480 ml Balance 720 ml 480 ml Current Medications: I have reviewed the current psychotropics carefully including drug interactions. Risk benefit ratio favors no change other than as noted in my dictated progress note. Diagnosis: Problems: (1) Schizoaffective disorder, bipolar type (2) Anxiety disorder, unspecified (3) Bipolar disorder, curr episode mixed, severe, with psychotic features (4) Major neurocognitive disorder (5) Impulse control disorder, unspecified OBDULIA MOLINA MD Jul 13, 2020 21:02
[2020-07-14 06:19] VITALS: BP 137/75
[2020-07-14] MEDS: GABAPENTIN 300 MG CAPSULE. PO SCH ×2 (06:32→20:04)
[2020-07-14] MEDS: CALCIUM CARBONATE 500 MG TAB.CHEW PO SCH ×3 (06:32→17:45)
[2020-07-14] MEDS: METOPROLOL SUCC 24HR ER 25 MG TAB.ER.24H. PO SCH (06:32)
[2020-07-14] MEDS: amLODIPine BESYLATE 10 MG TABLET PO SCH (06:33)
[2020-07-14 15:09] VITALS: BP 139/89
[2020-07-14] MEDS: traZODone 50 MG TABLET. PO SCH (20:04)
[2020-07-14] MEDS: QUEtiapine 25 MG TABLET. PO SCH (20:04)
[2020-07-14] MEDS: ATORVASTATIN CALCIUM 10 MG TABLET. PO SCH (20:04)
--- NOTE | 2020-07-14 20:47 | PDOC ---
Exam Note: Jassi Note: Please also refer to the separate dictated note~for this date of service dictated separately.~Patient seen individually. Discussed the patient with Nursing staff reviewed the chart.~Reviewed interim history and current functioning. Reviewed vital signs,~Labs/ Radiology~and current medications noted below. Continue current treatment with the changes noted in the dictated addendum note Assessment: Vital Signs/I&O: Vital Signs Date Time Temp Pulse Resp B/P (MAP) Pulse Ox O2 Delivery O2 Flow Rate FiO2 07/14/20 15:09 97.8 72 18 139/89 (106) 98 07/12/20 14:27 Room Air I & O 07/13/20 07/13/20 07/14/20 15:00 23:00 07:00 Intake Total 1080 ml 480 ml 120 ml Balance 1080 ml 480 ml 120 ml Current Medications: I have reviewed the current psychotropics carefully including drug interactions. Risk benefit ratio favors no change other than as noted in my dictated progress note. Diagnosis: Problems: (1) Schizoaffective disorder, bipolar type (2) Anxiety disorder, unspecified (3) Bipolar disorder, curr episode mixed, severe, with psychotic features (4) Major neurocognitive disorder (5) Impulse control disorder, unspecified OBDULIA MOLINA MD Jul 14, 2020 20:46
[2020-07-15 06:07] VITALS: BP 134/85
[2020-07-15] MEDS: CALCIUM CARBONATE 500 MG TAB.CHEW PO SCH ×3 (08:00→16:55)
[2020-07-15] MEDS: METOPROLOL SUCC 24HR ER 25 MG TAB.ER.24H. PO SCH (08:00)
[2020-07-15] MEDS: GABAPENTIN 300 MG CAPSULE. PO SCH ×2 (08:00→19:54)
[2020-07-15] MEDS: amLODIPine BESYLATE 10 MG TABLET PO SCH (08:01)
[2020-07-15 15:06] VITALS: BP 157/90
[2020-07-15] MEDS: ATORVASTATIN CALCIUM 10 MG TABLET. PO SCH (19:54)
[2020-07-15] MEDS: traZODone 50 MG TABLET. PO SCH (19:54)
[2020-07-15] MEDS: QUEtiapine 25 MG TABLET. PO SCH (19:54)
--- NOTE | 2020-07-15 21:03 | PDOC ---
Exam Note: Jassi Note: Please also refer to the separate dictated note~for this date of service dictated separately.~Patient seen individually. Discussed the patient with Nursing staff reviewed the chart.~Reviewed interim history and current functioning. Reviewed vital signs,~Labs/ Radiology~and current medications noted below. Continue current treatment with the changes noted in the dictated addendum note Assessment: Vital Signs/I&O: Vital Signs Date Time Temp Pulse Resp B/P (MAP) Pulse Ox O2 Delivery O2 Flow Rate FiO2 07/15/20 15:06 98.5 68 20 157/90 (112) 95 07/15/20 06:07 Room Air I & O 07/14/20 07/14/20 07/15/20 15:00 23:00 07:00 Intake Total 960 ml 240 ml 360 ml Balance 960 ml 240 ml 360 ml Current Medications: I have reviewed the current psychotropics carefully including drug interactions. Risk benefit ratio favors no change other than as noted in my dictated progress note. Diagnosis: Problems: (1) Schizoaffective disorder, bipolar type (2) Anxiety disorder, unspecified (3) Bipolar disorder, curr episode mixed, severe, with psychotic features (4) Major neurocognitive disorder (5) Impulse control disorder, unspecified OBDULIA MOLINA MD Jul 15, 2020 21:03
[2020-07-16 06:35] VITALS: BP 129/86
[2020-07-16] MEDS: CALCIUM CARBONATE 500 MG TAB.CHEW PO SCH ×3 (07:35→17:54)
[2020-07-16] MEDS: GABAPENTIN 300 MG CAPSULE. PO SCH ×2 (07:36→19:38)
[2020-07-16] MEDS: METOPROLOL SUCC 24HR ER 25 MG TAB.ER.24H. PO SCH (07:36)
[2020-07-16] MEDS: amLODIPine BESYLATE 10 MG TABLET PO SCH (07:36)
--- NOTE | 2020-07-16 08:03 | PDOC ---
Exam Note: Jassi Note: This note is a late entry for 07/13/2020 covers elements not covered in my initial note. Subjective: The patient was seen on telehealth rounds in the evening of 07/13/2020 with Jessie HOLLINGSWORTH as the unit is on a lockdown by the [facility] of COVID-19 exposure on the unit and no admission or discharges can be done. Discussed with nursing staff, reviewed the chart. He slept well previous night. He remains withdrawn, working on Crossword puzzles. Review of Systems: Ambulation impaired. No CV, , pulmonary, eye system symptoms on review. Mental Status Exam: Reasonably oriented. Speech is coherent. Abstraction is fair. Computation is impaired. Language function intact. Attention span is fair. Mood and affect is anxious. Laboratory Data: Reviewed. Impression: Bipolar disorder mixed with psychotic features. Mild cognitive impairment. Impulse control disorder unspecified. Anxiety disorder unspecified. Plan: No change from initial note. Assessment: Vital Signs/I&O: Vital Signs Date Time Temp Pulse Resp B/P (MAP) Pulse Ox O2 Delivery O2 Flow Rate FiO2 07/16/20 07:36 61 129/86 07/16/20 06:35 97.5 16 97 07/15/20 06:07 Room Air I & O 07/15/20 07/15/20 07/16/20 15:00 23:00 07:00 Intake Total 640 ml 480 ml Balance 640 ml 480 ml Current Medications: I have reviewed the current psychotropics carefully including drug interactions. Risk benefit ratio favors no change other than as noted in my dictated progress note. Diagnosis: Problems: (1) Schizoaffective disorder, bipolar type (2) Anxiety disorder, unspecified (3) Bipolar disorder, curr episode mixed, severe, with psychotic features (4) Major neurocognitive disorder (5) Impulse control disorder, unspecified OBDULIA MOLINA MD Jul 16, 2020 08:03
--- NOTE | 2020-07-16 08:21 | PDOC ---
Exam Note: Jassi Note: This note is a late entry for 07/14/2020 covers elements not covered in my initial note. Subjective: The patient was seen on telehealth rounds in the evening of 07/14/2020 with Shalini HOLLINGSWORTH as the unit is on a lockdown by the [facility] of COVID-19 exposure on the unit and no admission or discharges can be done. Discussed with nursing staff, reviewed the chart. He slept 7-1/2 hours previous night. He is doing better, somewhat withdrawn, paranoid at times. Review of Systems: Ambulation impaired. No CV, , pulmonary, eye system symptoms on review. He is hard of hearing. Mental Status Exam: Reasonably oriented. Speech is coherent. Abstraction is fair. Computation is impaired. Language function intact. Attention span is fair. Mood and affect is withdrawn, paranoid. Laboratory Data: Reviewed. Impression: Bipolar disorder mixed with psychotic features. Mild cognitive impairment. Impulse control disorder unspecified. Anxiety disorder unspecified. Plan: No change from initial note. Assessment: Vital Signs/I&O: Vital Signs Date Time Temp Pulse Resp B/P (MAP) Pulse Ox O2 Delivery O2 Flow Rate FiO2 07/16/20 07:36 61 129/86 07/16/20 06:35 97.5 16 97 07/15/20 06:07 Room Air I & O 07/15/20 07/15/20 07/16/20 15:00 23:00 07:00 Intake Total 640 ml 480 ml Balance 640 ml 480 ml Current Medications: I have reviewed the current psychotropics carefully including drug interactions. Risk benefit ratio favors no change other than as noted in my dictated progress note. Diagnosis: Problems: (1) Schizoaffective disorder, bipolar type (2) Anxiety disorder, unspecified (3) Bipolar disorder, curr episode mixed, severe, with psychotic features (4) Major neurocognitive disorder (5) Impulse control disorder, unspecified OBDULIA MOLINA MD Jul 16, 2020 08:21
--- NOTE | 2020-07-16 08:45 | PDOC ---
Exam Note: Jassi Note: This note is a late entry for 07/15/2020 covers elements not covered in my initial note. Subjective: The patient was seen on telehealth rounds in the evening of 07/15/2020 with Janette HOLLINGSWORTH as the unit is on a lockdown by the [facility] of COVID-19 exposure on the unit and no admission or discharges can be done. Discussed with nursing staff, reviewed the chart. He remains a little more disorganized, withdrawn. Review of Systems: Ambulation impaired. No CV, , pulmonary, eye system symptoms on review. He is hard of hearing. Mental Status Exam: Reasonably oriented. Speech is coherent. Abstraction is fair. Computation is impaired. Language function intact. Attention span is fair. Mood and affect is anxious. Laboratory Data: Reviewed. Impression: Bipolar disorder mixed with psychotic features. Mild cognitive impairment. Impulse control disorder unspecified. Anxiety disorder unspecified. Plan: No change from initial note. Assessment: Vital Signs/I&O: Vital Signs Date Time Temp Pulse Resp B/P (MAP) Pulse Ox O2 Delivery O2 Flow Rate FiO2 07/16/20 07:36 61 129/86 07/16/20 06:35 97.5 16 97 07/15/20 06:07 Room Air I & O 07/15/20 07/15/20 07/16/20 15:00 23:00 07:00 Intake Total 640 ml 480 ml Balance 640 ml 480 ml Current Medications: I have reviewed the current psychotropics carefully including drug interactions. Risk benefit ratio favors no change other than as noted in my dictated progress note. Diagnosis: Problems: (1) Schizoaffective disorder, bipolar type (2) Anxiety disorder, unspecified (3) Bipolar disorder, curr episode mixed, severe, with psychotic features (4) Major neurocognitive disorder (5) Impulse control disorder, unspecified OBDULIA MOLINA MD Jul 16, 2020 08:45
[2020-07-16 15:42] VITALS: BP 164/75
[2020-07-16] MEDS: ATORVASTATIN CALCIUM 10 MG TABLET. PO SCH (19:38)
[2020-07-16] MEDS: traZODone 50 MG TABLET. PO SCH (19:38)
[2020-07-16] MEDS: QUEtiapine 25 MG TABLET. PO SCH (19:38)
--- NOTE | 2020-07-16 20:57 | PDOC ---
Exam Note: Jassi Note: Please also refer to the separate dictated note~for this date of service dictated separately.~Patient seen individually. Discussed the patient with Nursing staff reviewed the chart.~Reviewed interim history and current functioning. Reviewed vital signs,~Labs/ Radiology~and current medications noted below. Continue current treatment with the changes noted in the dictated addendum note Assessment: Vital Signs/I&O: Vital Signs Date Time Temp Pulse Resp B/P (MAP) Pulse Ox O2 Delivery O2 Flow Rate FiO2 07/16/20 15:42 97.8 86 17 164/75 (104) 95 Room Air I & O 07/15/20 07/15/20 07/16/20 15:00 23:00 07:00 Intake Total 640 ml 480 ml Balance 640 ml 480 ml Current Medications: I have reviewed the current psychotropics carefully including drug interactions. Risk benefit ratio favors no change other than as noted in my dictated progress note. Diagnosis: Problems: (1) Schizoaffective disorder, bipolar type (2) Anxiety disorder, unspecified (3) Bipolar disorder, curr episode mixed, severe, with psychotic features (4) Major neurocognitive disorder (5) Impulse control disorder, unspecified OBDULIA MOLINA MD Jul 16, 2020 20:57
[2020-07-17 06:26] VITALS: BP 150/88
[2020-07-17] MEDS: GABAPENTIN 300 MG CAPSULE. PO SCH ×2 (08:24→19:39)
[2020-07-17] MEDS: amLODIPine BESYLATE 10 MG TABLET PO SCH (08:26)
[2020-07-17] MEDS: METOPROLOL SUCC 24HR ER 25 MG TAB.ER.24H. PO SCH (08:27)
[2020-07-17] MEDS: CALCIUM CARBONATE 500 MG TAB.CHEW PO SCH ×3 (08:27→18:23)
[2020-07-17 11:18] LABS: BASO # 0.1 x10^3/uL (0.0-0.2); BASO % 1 % (0-3); EOS # 0.3 x10^3/uL (0.0-0.7); EOS % 4 % (0-3); HEMATOCRIT 41.6 % (39.0-53.0); LYMPH # 1.1 x10^3/uL (1.0-4.8); LYMPH % 17 % (24-48); MEAN CORPUSCULAR HEMOGLOBIN 31 pg (25-35); MEAN CORPUSCULAR HGB CONC 34 g/dL (31-37); MEAN CORPUSCULAR VOLUME 92 fL (79-100); MONO # 0.8 x10^3/uL (0.0-1.1); MONO % 13 % (0-9); NEUT # 4.3 x10^3uL (1.8-7.7); NEUT % 65 % (31-73); PLATELET COUNT 287 x10^3/uL (140-400); RED CELL DISTRIBUTION WIDTH 13.6 % (11.5-14.5); WHITE BLOOD COUNT 6.6 x10^3/uL (4.0-11.0)
[2020-07-17 14:08] LABS: ALBUMIN 3.6 g/dL (3.4-5.0); CALCIUM 9.1 mg/dL (8.5-10.1); GFR 73.7; POTASSIUM 4.2 mmol/L (3.5-5.1); TOTAL BILIRUBIN 0.4 mg/dL (0.2-1.0); TOTAL PROTEIN 7.3 g/dL (6.4-8.2)
[2020-07-17 15:00] VITALS: BP 136/82
[2020-07-17] MEDS: QUEtiapine 25 MG TABLET. PO SCH (19:40)
[2020-07-17] MEDS: traZODone 50 MG TABLET. PO SCH (19:40)
[2020-07-17] MEDS: ATORVASTATIN CALCIUM 10 MG TABLET. PO SCH (19:40)
[2020-07-17] MEDS: ACETAMINOPHEN 325 MG TABLET PO PRN (20:55)
--- NOTE | 2020-07-17 21:15 | PDOC ---
Exam Note: Jassi Note: Please also refer to the separate dictated note~for this date of service dictated separately.~Patient seen individually. Discussed the patient with Nursing staff reviewed the chart.~Reviewed interim history and current functioning. Reviewed vital signs,~Labs/ Radiology~and current medications noted below. Continue current treatment with the changes noted in the dictated addendum note Assessment: Vital Signs/I&O: Vital Signs Date Time Temp Pulse Resp B/P (MAP) Pulse Ox O2 Delivery O2 Flow Rate FiO2 07/17/20 15:00 98.0 88 20 136/82 (100) 96 Room Air I & O 07/16/20 07/16/20 07/17/20 15:00 23:00 07:00 Intake Total 720 ml 960 ml Balance 720 ml 960 ml Labs: Laboratory Tests Test 07/17/20 10:50 White Blood Count 6.6 x10^3/uL (4.0-11.0) Red Blood Count 4.50 x10^6/uL (4.30-5.70) Hemoglobin 14.0 g/dL (13.0-17.5) Hematocrit 41.6 % (39.0-53.0) Mean Corpuscular Volume 92 fL (79-100) Mean Corpuscular Hemoglobin 31 pg (25-35) Mean Corpuscular Hemoglobin Concent 34 g/dL (31-37) Red Cell Distribution Width 13.6 % (11.5-14.5) Platelet Count 287 x10^3/uL (140-400) Neutrophils (%) (Auto) 65 % (31-73) Lymphocytes (%) (Auto) 17 % (24-48) L Monocytes (%) (Auto) 13 % (0-9) H Eosinophils (%) (Auto) 4 % (0-3) H Basophils (%) (Auto) 1 % (0-3) Neutrophils # (Auto) 4.3 x10^3uL (1.8-7.7) Lymphocytes # (Auto) 1.1 x10^3/uL (1.0-4.8) Monocytes # (Auto) 0.8 x10^3/uL (0.0-1.1) Eosinophils # (Auto) 0.3 x10^3/uL (0.0-0.7) Basophils # (Auto) 0.1 x10^3/uL (0.0-0.2) Sodium Level 143 mmol/L (136-145) Potassium Level 4.2 mmol/L (3.5-5.1) Chloride Level 107 mmol/L (98-107) Carbon Dioxide Level 31 mmol/L (21-32) Anion Gap 5 (6-14) L Blood Urea Nitrogen 18 mg/dL (8-26) Creatinine 1.0 mg/dL (0.7-1.3) Estimated GFR (Cockcroft-Gault) 73.7 BUN/Creatinine Ratio 18 (6-20) Glucose Level 115 mg/dL (70-99) H Calcium Level 9.1 mg/dL (8.5-10.1) Total Bilirubin 0.4 mg/dL (0.2-1.0) Aspartate Amino Transferase (AST) 31 U/L (15-37) Alanine Aminotransferase (ALT) 59 U/L (16-63) Alkaline Phosphatase 131 U/L (46-116) H Total Protein 7.3 g/dL (6.4-8.2) Albumin 3.6 g/dL (3.4-5.0) Albumin/Globulin Ratio 1.0 (1.0-1.7) Current Medications: I have reviewed the current psychotropics carefully including drug interactions. Risk benefit ratio favors no change other than as noted in my dictated progress note. Diagnosis: Problems: (1) Schizoaffective disorder, bipolar type (2) Anxiety disorder, unspecified (3) Bipolar disorder, curr episode mixed, severe, with psychotic features (4) Major neurocognitive disorder (5) Impulse control disorder, unspecified OBDULIA MOLINA MD Jul 17, 2020 21:15
[2020-07-18 06:11] VITALS: BP 153/82
[2020-07-18] MEDS: GABAPENTIN 300 MG CAPSULE. PO SCH ×2 (08:24→20:17)
[2020-07-18] MEDS: METOPROLOL SUCC 24HR ER 25 MG TAB.ER.24H. PO SCH (08:25)
[2020-07-18] MEDS: amLODIPine BESYLATE 10 MG TABLET PO SCH (08:25)
[2020-07-18] MEDS: CALCIUM CARBONATE 500 MG TAB.CHEW PO SCH ×3 (08:26→17:50)
[2020-07-18] MEDS: ACETAMINOPHEN 325 MG TABLET PO PRN (08:28)
[2020-07-18 16:11] VITALS: BP 135/80
[2020-07-18] MEDS: QUEtiapine 25 MG TABLET. PO SCH (20:17)
[2020-07-18] MEDS: ATORVASTATIN CALCIUM 10 MG TABLET. PO SCH (20:17)
[2020-07-18] MEDS: traZODone 50 MG TABLET. PO SCH (20:18)
--- NOTE | 2020-07-18 21:29 | PDOC ---
Exam Note: Jassi Note: This note is a late entry for 07/16/2020 covers elements not covered in my initial note. Subjective: The patient was seen on telehealth rounds in the evening of 07/16/2020 with Jessie HOLLINGSWORTH as the unit is on a lockdown by the [facility] of COVID-19 exposure on the unit with no admissions or discharges. Discussed with nursing staff, reviewed the chart. He slept 7 hours previous night. Review of Systems: Ambulation impaired. No CV, , pulmonary, eye system symptoms on review. He is hard of hearing. Mental Status Exam: The patient is oriented to himself and situation. He remains withdrawn into his room but has been appropriate working on Crossword puzzles. Speech has some latency, coherent. Abstraction is fair. Computation is impaired. Language function intact. Mood and affect is somewhat withdrawn, but pleasant, verbal and interactive as I met with him. No suicidal or homicidal ideation. Laboratory Data: Reviewed. Impression: Bipolar disorder mixed with psychotic features. Mild cognitive impairment. Impulse control disorder unspecified. Anxiety disorder unspecified. Plan: No change from initial note. Assessment: Vital Signs/I&O: Vital Signs Date Time Temp Pulse Resp B/P (MAP) Pulse Ox O2 Delivery O2 Flow Rate FiO2 07/18/20 16:11 97.9 74 18 135/80 (98) 96 07/18/20 06:11 Room Air I & O 07/17/20 07/17/20 07/18/20 15:00 23:00 07:00 Intake Total 820 ml 600 ml Balance 820 ml 600 ml Current Medications: I have reviewed the current psychotropics carefully including drug interactions. Risk benefit ratio favors no change other than as noted in my dictated progress note. Diagnosis: Problems: (1) Schizoaffective disorder, bipolar type (2) Anxiety disorder, unspecified (3) Bipolar disorder, curr episode mixed, severe, with psychotic features (4) Major neurocognitive disorder (5) Impulse control disorder, unspecified OBDULIA MOLINA MD Jul 18, 2020 21:29
--- NOTE | 2020-07-18 21:40 | PDOC ---
Exam Note: Jassi Note: This note is a late entry for 07/17/2020 covers elements not covered in my initial note. Subjective: The patient was seen on telehealth rounds in the evening of 07/17/2020 with Santos HOLLINGSWORTH as the unit is on a lockdown by the [facility] of COVID-19 exposure on the unit with no admissions or discharges. Discussed with nursing staff, reviewed the chart. He slept 7-1/4 hours previous night. He continues to be somewhat isolative, doing Crossword puzzles in his room. Review of Systems: Ambulation impaired. No CV, , pulmonary, eye system symptoms on review. He is hard of hearing. He complains of pain in the right knee. I did address with nursing staff and they will apply Bengay and treat symptomatically and a crepe bandages needed. Mental Status Exam: The patient is oriented to himself and situation. Speech is coherent, has some latency. Abstraction is fair. Computation is impaired. Language function intact. Attention span is short. Mood and affect is withdrawn. Laboratory Data: Reviewed. Impression: Bipolar disorder mixed with psychotic features. Mild cognitive impairment. Impulse control disorder unspecified. Anxiety disorder unspecified. Plan: No change from initial note. Assessment: Vital Signs/I&O: Vital Signs Date Time Temp Pulse Resp B/P (MAP) Pulse Ox O2 Delivery O2 Flow Rate FiO2 07/18/20 16:11 97.9 74 18 135/80 (98) 96 07/18/20 06:11 Room Air I & O 07/17/20 07/17/20 07/18/20 15:00 23:00 07:00 Intake Total 820 ml 600 ml Balance 820 ml 600 ml Current Medications: I have reviewed the current psychotropics carefully including drug interactions. Risk benefit ratio favors no change other than as noted in my dictated progress note. Diagnosis: Problems: (1) Schizoaffective disorder, bipolar type (2) Anxiety disorder, unspecified (3) Bipolar disorder, curr episode mixed, severe, with psychotic features (4) Major neurocognitive disorder (5) Impulse control disorder, unspecified OBDULIA MOLINA MD Jul 18, 2020 21:40
--- NOTE | 2020-07-18 21:40 | PDOC ---
Exam Note: Jassi Note: Please also refer to the separate dictated note~for this date of service dictated separately.~Patient seen individually. Discussed the patient with Nursing staff reviewed the chart.~Reviewed interim history and current functioning. Reviewed vital signs,~Labs/ Radiology~and current medications noted below. Continue current treatment with the changes noted in the dictated addendum note Assessment: Vital Signs/I&O: Vital Signs Date Time Temp Pulse Resp B/P (MAP) Pulse Ox O2 Delivery O2 Flow Rate FiO2 07/18/20 16:11 97.9 74 18 135/80 (98) 96 07/18/20 06:11 Room Air I & O 07/17/20 07/17/20 07/18/20 15:00 23:00 07:00 Intake Total 820 ml 600 ml Balance 820 ml 600 ml Current Medications: I have reviewed the current psychotropics carefully including drug interactions. Risk benefit ratio favors no change other than as noted in my dictated progress note. Diagnosis: Problems: (1) Schizoaffective disorder, bipolar type (2) Anxiety disorder, unspecified (3) Bipolar disorder, curr episode mixed, severe, with psychotic features (4) Major neurocognitive disorder (5) Impulse control disorder, unspecified OBDULIA MOLINA MD Jul 18, 2020 21:40
[2020-07-19 06:04] VITALS: BP 153/80
[2020-07-19] MEDS: GABAPENTIN 300 MG CAPSULE. PO SCH ×2 (08:51→19:52)
[2020-07-19] MEDS: amLODIPine BESYLATE 10 MG TABLET PO SCH (08:51)
[2020-07-19] MEDS: METOPROLOL SUCC 24HR ER 25 MG TAB.ER.24H. PO SCH (08:52)
[2020-07-19] MEDS: CALCIUM CARBONATE 500 MG TAB.CHEW PO SCH ×3 (08:52→17:15)
[2020-07-19] MEDS: CHOLECALCIFEROL (VITAMIN D3) 50,000 UNIT CAPSULE PO SCH (08:53)
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
[2020-07-19 15:52] VITALS: BP 143/79
[2020-07-19] MEDS: traZODone 50 MG TABLET. PO SCH (19:52)
[2020-07-19] MEDS: QUEtiapine 25 MG TABLET. PO SCH (19:52)
[2020-07-19] MEDS: ATORVASTATIN CALCIUM 10 MG TABLET. PO SCH (19:52)
--- NOTE | 2020-07-19 20:59 | PDOC ---
Exam Note: Jassi Note: Please also refer to the separate dictated note~for this date of service dictated separately.~Patient seen individually. Discussed the patient with Nursing staff reviewed the chart.~Reviewed interim history and current functioning. Reviewed vital signs,~Labs/ Radiology~and current medications noted below. Continue current treatment with the changes noted in the dictated addendum note Assessment: Vital Signs/I&O: Vital Signs Date Time Temp Pulse Resp B/P (MAP) Pulse Ox O2 Delivery O2 Flow Rate FiO2 07/19/20 15:52 97.9 75 18 143/79 (100) 97 07/18/20 06:11 Room Air I & O 07/18/20 07/18/20 07/19/20 15:00 23:00 07:00 Intake Total 600 ml 600 ml Balance 600 ml 600 ml Current Medications: I have reviewed the current psychotropics carefully including drug interactions. Risk benefit ratio favors no change other than as noted in my dictated progress note. Diagnosis: Problems: (1) Schizoaffective disorder, bipolar type (2) Anxiety disorder, unspecified (3) Bipolar disorder, curr episode mixed, severe, with psychotic features (4) Major neurocognitive disorder (5) Impulse control disorder, unspecified OBDULIA MOLINA MD Jul 19, 2020 20:59
[2020-07-20 05:59] VITALS: BP 128/76
[2020-07-20] MEDS: CALCIUM CARBONATE 500 MG TAB.CHEW PO SCH ×3 (07:53→17:11)
[2020-07-20] MEDS: amLODIPine BESYLATE 10 MG TABLET PO SCH (07:54)
[2020-07-20] MEDS: METOPROLOL SUCC 24HR ER 25 MG TAB.ER.24H. PO SCH (07:54)
[2020-07-20] MEDS: GABAPENTIN 300 MG CAPSULE. PO SCH ×2 (07:54→20:49)
--- NOTE | 2020-07-20 08:02 | PDOC ---
Exam Note: Jassi Note: This note is a late entry for 07/18/2020 covers elements not covered in my initial note. Subjective: The patient was seen on telehealth rounds in the evening of 07/18/2020 with Santos HOLLINGSWORTH as the unit is on a lockdown by the [facility] of COVID-19 exposure on the unit with no admissions or discharges. Discussed with nursing staff, reviewed the chart. He slept 8 hours previous night. He states his knee pain is better. Review of Systems: Ambulation impaired. No CV, , pulmonary, eye system symptoms on review. He is hard of hearing. Mental Status Exam: The patient is oriented to himself and situation. He is little more interactive, pleasant, and cooperative. He states he has been trying to call his daughter. Speech is coherent, has some latency. Abstraction is fair. Computation is impaired. Language function intact. Attention span is short. Mood and affect is withdrawn. Laboratory Data: Reviewed. Impression: Bipolar disorder mixed with psychotic features. Mild cognitive impairment. Impulse control disorder unspecified. Anxiety disorder unspecified. Plan: No change from initial note. Assessment: Vital Signs/I&O: Vital Signs Date Time Temp Pulse Resp B/P (MAP) Pulse Ox O2 Delivery O2 Flow Rate FiO2 07/20/20 07:54 65 128/76 07/20/20 05:59 97.5 16 95 07/18/20 06:11 Room Air I & O 07/19/20 07/19/20 07/20/20 15:00 23:00 07:00 Intake Total 840 ml 600 ml Balance 840 ml 600 ml Current Medications: I have reviewed the current psychotropics carefully including drug interactions. Risk benefit ratio favors no change other than as noted in my dictated progress note. Diagnosis: Problems: (1) Schizoaffective disorder, bipolar type (2) Anxiety disorder, unspecified (3) Bipolar disorder, curr episode mixed, severe, with psychotic features (4) Major neurocognitive disorder (5) Impulse control disorder, unspecified OBDULIA MOLINA MD Jul 20, 2020 08:02
--- NOTE | 2020-07-20 08:12 | PDOC ---
Exam Note: Jassi Note: This note is a late entry for 07/19/2020 covers elements not covered in my initial note. Subjective: The patient was seen on telehealth rounds in the evening of 07/19/2020 with Shalini HOLLINGSWORTH as the unit is on a lockdown by the [facility] of COVID-19 exposure on the unit with no admissions or discharges. Discussed with nursing staff, reviewed the chart. He slept 6-1/2 hours previous night. He has been agitated with one of the other patients on the unit but redirects. Review of Systems: Ambulation impaired. No CV, , pulmonary, eye system symp toms on review. He is hard of hearing. Mental Status Exam: The patient is oriented to himself and situation. Speech is coherent, has some latency. Abstraction is fair. Computation is impaired. Language function intact. Attention span is short. Mood and affect is withdrawn. Laboratory Data: Reviewed. Impression: Bipolar disorder mixed with psychotic features. Mild cognitive impairment. Impulse control disorder unspecified. Anxiety disorder unspecified. Plan: No change from initial note. Assessment: Vital Signs/I&O: Vital Signs Date Time Temp Pulse Resp B/P (MAP) Pulse Ox O2 Delivery O2 Flow Rate FiO2 07/20/20 07:54 65 128/76 07/20/20 05:59 97.5 16 95 07/18/20 06:11 Room Air I & O 07/19/20 07/19/20 07/20/20 15:00 23:00 07:00 Intake Total 840 ml 600 ml Balance 840 ml 600 ml Current Medications: I have reviewed the current psychotropics carefully including drug interactions. Risk benefit ratio favors no change other than as noted in my dictated progress note. Diagnosis: Problems: (1) Schizoaffective disorder, bipolar type (2) Anxiety disorder, unspecified (3) Bipolar disorder, curr episode mixed, severe, with psychotic features (4) Major neurocognitive disorder (5) Impulse control disorder, unspecified OBDULIA MOLINA MD Jul 20, 2020 08:12
[2020-07-20 15:48] VITALS: BP 157/88
[2020-07-20] MEDS: ATORVASTATIN CALCIUM 10 MG TABLET. PO SCH (20:49)
[2020-07-20] MEDS: traZODone 50 MG TABLET. PO SCH (20:49)
[2020-07-20] MEDS: QUEtiapine 25 MG TABLET. PO SCH (20:49)
--- NOTE | 2020-07-20 21:04 | PDOC ---
Exam Note: Jassi Note: Please also refer to the separate dictated note~for this date of service dictated separately.~Patient seen individually. Discussed the patient with Nursing staff reviewed the chart.~Reviewed interim history and current functioning. Reviewed vital signs,~Labs/ Radiology~and current medications noted below. Continue current treatment with the changes noted in the dictated addendum note Assessment: Vital Signs/I&O: Vital Signs Date Time Temp Pulse Resp B/P (MAP) Pulse Ox O2 Delivery O2 Flow Rate FiO2 07/20/20 15:48 98.1 88 20 157/88 (111) 96 07/18/20 06:11 Room Air I & O 07/19/20 07/19/20 07/20/20 15:00 23:00 07:00 Intake Total 840 ml 600 ml Balance 840 ml 600 ml Current Medications: I have reviewed the current psychotropics carefully including drug interactions. Risk benefit ratio favors no change other than as noted in my dictated progress note. Diagnosis: Problems: (1) Schizoaffective disorder, bipolar type (2) Anxiety disorder, unspecified (3) Bipolar disorder, curr episode mixed, severe, with psychotic features (4) Major neurocognitive disorder (5) Impulse control disorder, unspecified OBDULIA MOLINA MD Jul 20, 2020 21:04
[2020-07-21 06:01] VITALS: BP 137/76
[2020-07-21] MEDS: CALCIUM CARBONATE 500 MG TAB.CHEW PO SCH ×3 (09:06→17:09)
[2020-07-21] MEDS: METOPROLOL SUCC 24HR ER 25 MG TAB.ER.24H. PO SCH (09:07)
[2020-07-21] MEDS: amLODIPine BESYLATE 10 MG TABLET PO SCH (09:07)
[2020-07-21] MEDS: GABAPENTIN 300 MG CAPSULE. PO SCH ×2 (09:08→20:21)
[2020-07-21 15:48] VITALS: BP 133/81
[2020-07-21] MEDS: ACETAMINOPHEN 325 MG TABLET PO PRN ×2 (18:04→20:21)
[2020-07-21] MEDS: ATORVASTATIN CALCIUM 10 MG TABLET. PO SCH (20:21)
[2020-07-21] MEDS: traZODone 50 MG TABLET. PO SCH (20:21)
[2020-07-21] MEDS: QUEtiapine 25 MG TABLET. PO SCH (20:21)
--- NOTE | 2020-07-21 20:53 | PDOC ---
Exam Note: Jassi Note: Please also refer to the separate dictated note~for this date of service dictated separately.~Patient seen individually. Discussed the patient with Nursing staff reviewed the chart.~Reviewed interim history and current functioning. Reviewed vital signs,~Labs/ Radiology~and current medications noted below. Continue current treatment with the changes noted in the dictated addendum note Assessment: Vital Signs/I&O: Vital Signs Date Time Temp Pulse Resp B/P (MAP) Pulse Ox O2 Delivery O2 Flow Rate FiO2 07/21/20 15:48 97.5 82 18 133/81 (98) 95 07/18/20 06:11 Room Air I & O 07/20/20 07/20/20 07/21/20 15:00 23:00 07:00 Intake Total 960 ml 840 ml Balance 960 ml 840 ml Current Medications: I have reviewed the current psychotropics carefully including drug interactions. Risk benefit ratio favors no change other than as noted in my dictated progress note. Diagnosis: Problems: (1) Schizoaffective disorder, bipolar type (2) Anxiety disorder, unspecified (3) Bipolar disorder, curr episode mixed, severe, with psychotic features (4) Major neurocognitive disorder (5) Impulse control disorder, unspecified OBDULIA MOLINA MD Jul 21, 2020 20:53
[2020-07-22 06:11] VITALS: BP 144/74
[2020-07-22] MEDS: CALCIUM CARBONATE 500 MG TAB.CHEW PO SCH ×3 (08:11→17:24)
--- NOTE | 2020-07-22 08:11 | PDOC ---
Exam Note: Jassi Note: This note is a late entry for 07/20/2020 covers elements not covered in my initial note. Subjective: The patient was seen on telehealth rounds in the evening of 07/20/2020 with Niya HOLLINGSWORTH as the unit is on a lockdown by the [facility] of COVID-19 exposure on the unit with no admissions or discharges. Discussed with nursing staff, reviewed the chart. He slept 7-3/4 hours previous night. He was snarky previous evening with nursing aid but then did better. Review of Systems: Ambulation impaired. He made somewhat sexually inappropriate comment to the nursing staff during the day on 07/20 I love you. When he was corrected he was very apologetic repeatedly. No CV, , pulmonary, eye system symptoms on review. He is hard of hearing. He was complaining of pain in his right knee. Nursing staff are treating him symptomatically. Mental Status Exam: The patient is oriented to himself and situation. He was again wanting to know discharge plans which I addressed with him. Speech is coherent, has some latency. Abstraction is fair. Computation is impaired. Language function intact. Attention span is short. Mood and affect is withdrawn. Laboratory Data: Reviewed. Impression: Bipolar disorder mixed with psychotic features. Mild cognitive impairment. Impulse control disorder unspecified. Anxiety disorder unspecified. Plan: No change from initial note. Assessment: Vital Signs/I&O: Vital Signs Date Time Temp Pulse Resp B/P (MAP) Pulse Ox O2 Delivery O2 Flow Rate FiO2 07/22/20 06:11 97.3 65 18 144/74 (97) 96 Room Air I & O 07/21/20 07/21/20 07/22/20 15:00 23:00 07:00 Intake Total 960 ml 480 ml Balance 960 ml 480 ml Current Medications: I have reviewed the current psychotropics carefully including drug interactions. Risk benefit ratio favors no change other than as noted in my dictated progress note. Diagnosis: Problems: (1) Schizoaffective disorder, bipolar type (2) Anxiety disorder, unspecified (3) Bipolar disorder, curr episode mixed, severe, with psychotic features (4) Major neurocognitive disorder (5) Impulse control disorder, unspecified OBDULIA MOLINA MD Jul 22, 2020 08:11
[2020-07-22] MEDS: METOPROLOL SUCC 24HR ER 25 MG TAB.ER.24H. PO SCH (08:12)
[2020-07-22] MEDS: amLODIPine BESYLATE 10 MG TABLET PO SCH (08:13)
--- NOTE | 2020-07-22 08:24 | PDOC ---
Exam Note: Jassi Note: This note is a late entry for 07/21/2020 covers elements not covered in my initial note. Subjective: The patient was seen on telehealth rounds in the evening of 07/21/2020 with Niya HOLLINGSWORTH as the unit is on a lockdown by the [facility] of COVID-19 exposure on the unit with no admissions or discharges. Discussed with nursing staff, reviewed the chart. He slept 7 hours previous night. He was appropriate, still complains of right knee pain. He has been less inappropriate in comments to the nursing staff, which even previously were infrequent. I did address this with him. Review of Systems: Ambulation impaired. No CV, , pulmonary, eye system symptoms on review. He is hard of hearing. Mental Status Exam: The patient is oriented to himself and situation. Speech is coherent, has some latency. Abstraction is fair. Computation is impaired. Language function intact. Attention span is short. Mood and affect is with drawn. Laboratory Data: Reviewed. Impression: Bipolar disorder mixed with psychotic features. Mild cognitive impairment. Impulse control disorder unspecified. Anxiety disorder unspecified. Plan: No change from initial note. Assessment: Vital Signs/I&O: Vital Signs Date Time Temp Pulse Resp B/P (MAP) Pulse Ox O2 Delivery O2 Flow Rate FiO2 07/22/20 08:13 65 144/74 07/22/20 06:11 97.3 18 96 Room Air I & O 0 07/21/20 07/21/20 07/22/20 15:00 23:00 07:00 Intake Total 960 ml 480 ml Balance 960 ml 480 ml Current Medications: I have reviewed the current psychotropics carefully including drug interactions. Risk benefit ratio favors no change other than as noted in my dictated progress note. Diagnosis: Problems: (1) Schizoaffective disorder, bipolar type (2) Anxiety disorder, unspecified (3) Bipolar disorder, curr episode mixed, severe, with psychotic features (4) Major neurocognitive disorder (5) Impulse control disorder, unspecified OBDULIA MOLINA MD Jul 22, 2020 08:24
[2020-07-22] MEDS: ACETAMINOPHEN 325 MG TABLET PO PRN ×2 (09:34→20:07)
[2020-07-22] MEDS: GABAPENTIN 300 MG CAPSULE. PO SCH ×2 (09:37→20:07)
[2020-07-22] MEDS: DICLOFENAC SODIUM 1% TOPICAL GEL 100GM TUBE. TP PRN (10:06)
[2020-07-22 15:48] VITALS: BP 114/79
[2020-07-22] MEDS: ATORVASTATIN CALCIUM 10 MG TABLET. PO SCH (20:07)
[2020-07-22] MEDS: traZODone 50 MG TABLET. PO SCH (20:07)
[2020-07-22] MEDS: QUEtiapine 25 MG TABLET. PO SCH (20:07)
--- NOTE | 2020-07-22 20:58 | PDOC ---
Exam Note: Jassi Note: Please also refer to the separate dictated note~for this date of service dictated separately.~Patient seen individually. Discussed the patient with Nursing staff reviewed the chart.~Reviewed interim history and current functioning. Reviewed vital signs,~Labs/ Radiology~and current medications noted below. Continue current treatment with the changes noted in the dictated addendum note Assessment: Vital Signs/I&O: Vital Signs Date Time Temp Pulse Resp B/P (MAP) Pulse Ox O2 Delivery O2 Flow Rate FiO2 07/22/20 15:48 98.3 76 16 114/79 (91) 97 07/22/20 06:11 Room Air I & O 07/21/20 07/21/20 07/22/20 15:00 23:00 07:00 Intake Total 960 ml 480 ml Balance 960 ml 480 ml Current Medications: I have reviewed the current psychotropics carefully including drug interactions. Risk benefit ratio favors no change other than as noted in my dictated progress note. Diagnosis: Problems: (1) Schizoaffective disorder, bipolar type (2) Anxiety disorder, unspecified (3) Bipolar disorder, curr episode mixed, severe, with psychotic features (4) Major neurocognitive disorder (5) Impulse control disorder, unspecified OBDULIA MOLINA MD Jul 22, 2020 20:58
[2020-07-23 05:59] VITALS: BP 169/64
[2020-07-23 06:16] LABS: BASO # 0.1 x10^3/uL (0.0-0.2); BASO % 1 % (0-3); EOS # 0.4 x10^3/uL (0.0-0.7); EOS % 6 % (0-3); HEMOGLOBIN 13.3 g/dL (13.0-17.5); LYMPH # 1.6 x10^3/uL (1.0-4.8); LYMPH % 23 % (24-48); MEAN CORPUSCULAR HEMOGLOBIN 31 pg (25-35); MEAN CORPUSCULAR HGB CONC 33 g/dL (31-37); MEAN CORPUSCULAR VOLUME 93 fL (79-100); MONO # 1.2 x10^3/uL (0.0-1.1); MONO % 16 % (0-9); NEUT # 3.8 x10^3uL (1.8-7.7); NEUT % 54 % (31-73); PLATELET COUNT 255 x10^3/uL (140-400); RED BLOOD COUNT 4.32 x10^6/uL (4.30-5.70); RED CELL DISTRIBUTION WIDTH 13.5 % (11.5-14.5)
[2020-07-23 06:31] LABS: ALBUMIN 3.4 g/dL (3.4-5.0); CALCIUM 8.8 mg/dL (8.5-10.1); GFR 73.7; TOTAL BILIRUBIN 0.6 mg/dL (0.2-1.0); TOTAL PROTEIN 6.7 g/dL (6.4-8.2)
[2020-07-23] MEDS: CALCIUM CARBONATE 500 MG TAB.CHEW PO SCH ×3 (07:14→16:21)
[2020-07-23] MEDS: amLODIPine BESYLATE 10 MG TABLET PO SCH (07:15)
[2020-07-23] MEDS: METOPROLOL SUCC 24HR ER 25 MG TAB.ER.24H. PO SCH (07:16)
[2020-07-23] MEDS: GABAPENTIN 300 MG CAPSULE. PO SCH ×2 (07:18→19:54)
[2020-07-23] MEDS: ACETAMINOPHEN 325 MG TABLET PO PRN (07:18)
[2020-07-23] MEDS ORDERED: ATOR10TA60 PO (11:09)
[2020-07-23] MEDS ORDERED: ACET325T9 PO (11:10)
[2020-07-23] MEDS ORDERED: GABA-586 PO (11:11)
[2020-07-23] MEDS ORDERED: QUET25TA5 PO (11:12)
[2020-07-23] MEDS ORDERED: CHOL500021 PO (11:13)
[2020-07-23] MEDS ORDERED: METH57CR17 TP (11:14)
[2020-07-23 15:30] VITALS: BP 126/79
[2020-07-23] MEDS: traZODone 50 MG TABLET. PO SCH (19:53)
[2020-07-23] MEDS: ATORVASTATIN CALCIUM 10 MG TABLET. PO SCH (19:54)
[2020-07-23] MEDS: QUEtiapine 25 MG TABLET. PO SCH (19:54)
--- NOTE | 2020-07-23 20:54 | PDOC ---
Exam Note: Jassi Note: Please also refer to the separate dictated note~for this date of service dictated separately.~Patient seen individually. Discussed the patient with Nursing staff reviewed the chart.~Reviewed interim history and current functioning. Reviewed vital signs,~Labs/ Radiology~and current medications noted below. Continue current treatment with the changes noted in the dictated addendum note Assessment: Vital Signs/I&O: Vital Signs Date Time Temp Pulse Resp B/P (MAP) Pulse Ox O2 Delivery O2 Flow Rate FiO2 07/23/20 15:30 98.4 88 18 126/79 (95) 95 Room Air I & O 07/22/20 07/22/20 07/23/20 15:00 23:00 07:00 Intake Total 480 ml 360 ml 300 ml Balance 480 ml 360 ml 300 ml Labs: Laboratory Tests Test 07/23/20 05:55 White Blood Count 7.0 x10^3/uL (4.0-11.0) Red Blood Count 4.32 x10^6/uL (4.30-5.70) Hemoglobin 13.3 g/dL (13.0-17.5) Hematocrit 40.0 % (39.0-53.0) Mean Corpuscular Volume 93 fL (79-100) Mean Corpuscular Hemoglobin 31 pg (25-35) Mean Corpuscular Hemoglobin Concent 33 g/dL (31-37) Red Cell Distribution Width 13.5 % (11.5-14.5) Platelet Count 255 x10^3/uL (140-400) Neutrophils (%) (Auto) 54 % (31-73) Lymphocytes (%) (Auto) 23 % (24-48) L Monocytes (%) (Auto) 16 % (0-9) H Eosinophils (%) (Auto) 6 % (0-3) H Basophils (%) (Auto) 1 % (0-3) Neutrophils # (Auto) 3.8 x10^3uL (1.8-7.7) Lymphocytes # (Auto) 1.6 x10^3/uL (1.0-4.8) Monocytes # (Auto) 1.2 x10^3/uL (0.0-1.1) H Eosinophils # (Auto) 0.4 x10^3/uL (0.0-0.7) Basophils # (Auto) 0.1 x10^3/uL (0.0-0.2) Sodium Level 143 mmol/L (136-145) Potassium Level 4.0 mmol/L (3.5-5.1) Chloride Level 107 mmol/L (98-107) Carbon Dioxide Level 28 mmol/L (21-32) Anion Gap 8 (6-14) Blood Urea Nitrogen 14 mg/dL (8-26) Creatinine 1.0 mg/dL (0.7-1.3) Estimated GFR (Cockcroft-Gault) 73.7 BUN/Creatinine Ratio 14 (6-20) Glucose Level 90 mg/dL (70-99) Calcium Level 8.8 mg/dL (8.5-10.1) Total Bilirubin 0.6 mg/dL (0.2-1.0) Aspartate Amino Transferase (AST) 30 U/L (15-37) Alanine Aminotransferase (ALT) 56 U/L (16-63) Alkaline Phosphatase 122 U/L (46-116) H Total Protein 6.7 g/dL (6.4-8.2) Albumin 3.4 g/dL (3.4-5.0) Albumin/Globulin Ratio 1.0 (1.0-1.7) Current Medications: I have reviewed the current psychotropics carefully including drug interactions. Risk benefit ratio favors no change other than as noted in my dictated progress note. Diagnosis: Problems: (1) Schizoaffective disorder, bipolar type (2) Anxiety disorder, unspecified (3) Bipolar disorder, curr episode mixed, severe, with psychotic features (4) Major neurocognitive disorder (5) Impulse control disorder, unspecified OBDULIA MOLINA MD Jul 23, 2020 20:54
[2020-07-24 06:02] VITALS: BP 133/83
[2020-07-24] MEDS: CALCIUM CARBONATE 500 MG TAB.CHEW PO SCH ×3 (08:31→17:49)
[2020-07-24] MEDS: GABAPENTIN 300 MG CAPSULE. PO SCH ×2 (08:31→20:02)
[2020-07-24] MEDS: amLODIPine BESYLATE 10 MG TABLET PO SCH (08:32)
[2020-07-24] MEDS: METOPROLOL SUCC 24HR ER 25 MG TAB.ER.24H. PO SCH (08:32)
[2020-07-24 16:03] VITALS: BP 131/74
[2020-07-24] MEDS: traZODone 50 MG TABLET. PO SCH (20:02)
[2020-07-24] MEDS: QUEtiapine 25 MG TABLET. PO SCH (20:02)
[2020-07-24] MEDS: ATORVASTATIN CALCIUM 10 MG TABLET. PO SCH (20:02)
[2020-07-25 06:02] VITALS: BP 172/80
[2020-07-25] MEDS: GABAPENTIN 300 MG CAPSULE. PO SCH ×2 (07:43→20:02)
[2020-07-25] MEDS: METOPROLOL SUCC 24HR ER 25 MG TAB.ER.24H. PO SCH (07:43)
[2020-07-25] MEDS: CALCIUM CARBONATE 500 MG TAB.CHEW PO SCH ×3 (07:43→15:41)
[2020-07-25] MEDS: amLODIPine BESYLATE 10 MG TABLET PO SCH (07:44)
[2020-07-25 15:51] VITALS: BP 120/74
[2020-07-25] MEDS: QUEtiapine 25 MG TABLET. PO SCH (20:02)
[2020-07-25] MEDS: ATORVASTATIN CALCIUM 10 MG TABLET. PO SCH (20:02)
[2020-07-25] MEDS: traZODone 50 MG TABLET. PO SCH (20:02)
--- NOTE | 2020-07-25 21:02 | PDOC ---
Exam Note: Jassi Note: This note is a late entry for 07/22/2020 covers elements not covered in my initial note. Subjective: The patient was reviewed on telehealth rounds in the evening of 07/22/2020 with Sami HOLLINGSWORTH as the unit is on a lockdown by the [facility] of COVID-19 exposure on the unit with no admissions or discharges. Discussed with nursing staff, reviewed the chart. He slept 7-3/4 hours previous night. He spent much time in his room. He has been pleasant, still gets a little agitated with or the other patients on the unit. We addressed this. Review of Systems: Ambulation impaired. No CV, , pulmonary, eye system symptoms on review. He complains of right knee pain. Mental Status Exam: The patient is oriented to himself and situation. He is pleasant, verbal, interactive. Speech is coherent, has some latency. Abstraction is fair. Computation is impaired. Language function intact. Attention span is somewhat short. Mood and affect is withdrawn. No suicidal or homicidal ideation. Laboratory Data: Reviewed. Impression: Bipolar disorder mixed with psychotic features. Mild cognitive impairment. Impulse control disorder unspecified. Anxiety disorder unspecified. Plan: No change from initial note. Assessment: Vital Signs/I&O: Vital Signs Date Time Temp Pulse Resp B/P (MAP) Pulse Ox O2 Delivery O2 Flow Rate FiO2 07/25/20 15:51 98.0 72 18 120/74 (89) 98 07/23/20 15:30 Room Air I & O 07/24/20 07/24/20 07/25/20 14:59 22:59 06:59 Intake Total 840 ml 720 ml Balance 840 ml 720 ml Current Medications: I have reviewed the current psychotropics carefully including drug interactions. Risk benefit ratio favors no change other than as noted in my dictated progress note. Diagnosis: Problems: (1) Schizoaffective disorder, bipolar type (2) Anxiety disorder, unspecified (3) Bipolar disorder, curr episode mixed, severe, with psychotic features (4) Major neurocognitive disorder (5) Impulse control disorder, unspecified OBDULIA MOLINA MD Jul 25, 2020 21:02
--- NOTE | 2020-07-25 21:24 | PDOC ---
Exam Note: Jassi Note: This note is a late entry for 07/23/2020 covers elements not covered in my initial note. Subjective: The patient was reviewed on telehealth rounds in the evening of 07/23/2020 with Santos HOLLINGSWORTH. The [facility] has opened up the unit for admission and discharges following quarantine for Covid-19 exposure. Discussed with nursing staff, reviewed the chart. He slept 7-3/4 hours previous night. Overall the patient has done better. Review of Systems: Ambulation impaired. No CV, , pulmonary, eye system symptoms on review. Patient states his right knee pain is better because God has given him a new cartilage and he states he walked 5 times around the unit with no pain whatsoever. Mental Status Exam: The patient is oriented to himself and situation. He is pleasant, smiling, verbal, interactive, wanting to know discharge plans which we addressed. Speech is coherent, has some latency. Abstraction is fair. Computation is impaired. Language function intact. Attention span is short. Mood and affect is withdrawn. Laboratory Data: Reviewed. Impression: Bipolar disorder mixed with psychotic features. Mild cognitive impairment. Impulse control disorder unspecified. Anxiety disorder unspecified. Plan: No change from initial note. Assessment: Vital Signs/I&O: Vital Signs Date Time Temp Pulse Resp B/P (MAP) Pulse Ox O2 Delivery O2 Flow Rate FiO2 07/25/20 15:51 98.0 72 18 120/74 (89) 98 07/23/20 15:30 Room Air I & O 07/24/20 07/24/20 07/25/20 15:00 23:00 07:00 Intake Total 840 ml 720 ml Balance 840 ml 720 ml Current Medications: I have reviewed the current psychotropics carefully including drug interactions. Risk benefit ratio favors no change other than as noted in my dictated progress note. Diagnosis: Problems: (1) Schizoaffective disorder, bipolar type (2) Anxiety disorder, unspecified (3) Bipolar disorder, curr episode mixed, severe, with psychotic features (4) Major neurocognitive disorder (5) Impulse control disorder, unspecified OBDULIA MOLINA MD Jul 25, 2020 21:24
--- NOTE | 2020-07-25 22:00 | PDOC ---
Exam Note: Jassi Note: Please also refer to the separate dictated note~for this date of service dictated separately.~Patient seen individually. Discussed the patient with Nursing staff reviewed the chart.~Reviewed interim history and current functioning. Reviewed vital signs,~Labs/ Radiology~and current medications noted below. Continue current treatment with the changes noted in the dictated addendum note Assessment: Vital Signs/I&O: Vital Signs Date Time Temp Pulse Resp B/P (MAP) Pulse Ox O2 Delivery O2 Flow Rate FiO2 07/25/20 15:51 98.0 72 18 120/74 (89) 98 07/23/20 15:30 Room Air I & O 07/24/20 07/24/20 07/25/20 15:00 23:00 07:00 Intake Total 840 ml 720 ml Balance 840 ml 720 ml Current Medications: I have reviewed the current psychotropics carefully including drug interactions. Risk benefit ratio favors no change other than as noted in my dictated progress note. Diagnosis: Problems: (1) Schizoaffective disorder, bipolar type (2) Anxiety disorder, unspecified (3) Bipolar disorder, curr episode mixed, severe, with psychotic features (4) Major neurocognitive disorder (5) Impulse control disorder, unspecified OBDULIA MOLINA MD Jul 25, 2020 22:00
[2020-07-26 06:09] VITALS: BP 118/75
--- NOTE | 2020-07-26 08:10 | PDOC ---
Exam Note: Jassi Note: This note is a late entry for 07/24/2020 covers elements not covered in my initial note. Subjective: The patient was reviewed on telehealth rounds in the evening of 07/24/2020 with Diego HOLLINGSWORTH. The [facility] Department has opened up the unit for admission and discharges following quarantine for Covid-19 exposure. Discussed with nursing staff, reviewed the chart. He slept 7-1/4 hours previous night. Overall the patient has been doing better. He does not complain of anymore pain in his right knee and he believes the good Lord has resolved this for him. He has been walking around the unit. Review of Systems: Ambulation impaired. No CV, , pulmonary, eye system symptoms on review. Mental Status Exam: The patient is oriented to himself and situation. He is pleasant, verbal, interactive, still believes he should be able to go home. I addressed this with him. Speech is coherent, has some latency. Abstraction is fair. Computation is impaired. Language function intact. Attention span is short. Mood and affect is improved. No suicidal or homicidal ideation. Laboratory Data: Reviewed. Impression: Bipolar disorder mixed with psychotic features. Mild cognitive impairment. Impulse control disorder unspecified. Anxiety disorder unspecified. Plan: No change from initial note. Assessment: Vital Signs/I&O: Vital Signs Date Time Temp Pulse Resp B/P (MAP) Pulse Ox O2 Delivery O2 Flow Rate FiO2 07/26/20 06:09 97.7 64 16 118/75 (89) 97 Room Air I & O 07/25/20 07/25/20 07/26/20 15:00 23:00 07:00 Intake Total 480 ml 720 ml Balance 480 ml 720 ml Current Medications: I have reviewed the current psychotropics carefully including drug interactions. Risk benefit ratio favors no change other than as noted in my dictated progress note. Diagnosis: Problems: (1) Schizoaffective disorder, bipolar type (2) Anxiety disorder, unspecified (3) Bipolar disorder, curr episode mixed, severe, with psychotic features (4) Major neurocognitive disorder (5) Impulse control disorder, unspecified OBDULIA MOLINA MD Jul 26, 2020 08:10
[2020-07-26] MEDS: METOPROLOL SUCC 24HR ER 25 MG TAB.ER.24H. PO SCH (08:12)
[2020-07-26] MEDS: GABAPENTIN 300 MG CAPSULE. PO SCH ×2 (08:12→20:11)
[2020-07-26] MEDS: CHOLECALCIFEROL (VITAMIN D3) 50,000 UNIT CAPSULE PO SCH (08:13)
[2020-07-26] MEDS: amLODIPine BESYLATE 10 MG TABLET PO SCH (08:13)
[2020-07-26] MEDS: CALCIUM CARBONATE 500 MG TAB.CHEW PO SCH ×3 (08:13→17:47)
--- NOTE | 2020-07-26 08:21 | PDOC ---
Exam Note: Jassi Note: This note is a late entry for 07/25/2020 covers elements not covered in my initial note. Subjective: The patient was reviewed on telehealth rounds in the evening of 07/25/2020 with Zenaida HOLLINGSWORTH. The Health Department has opened up the unit for admission and discharges following quarantine for Covid-19 exposure. Discussed with nursing staff, reviewed the chart. He slept 7-1/2 hours previous night. Overall the patient has done better. He is pleasant, cooperative, not getting into instigating the other patient on the unit that he was doing previously. He denies any pain in his knee. Review of Systems: Ambulation impaired. No CV, , pulmonary, eye system symptoms on review. Mental Status Exam: The patient is oriented to himself and situation. He is pleasant, verbal, interactive. Speech has some latency of responses but otherwise appropriate. Attention span is short. Mood and affect is improved. Thought processes goal directed. Intellect average. Insight is good. Judgment is intact. Laboratory Data: Reviewed. Impression: Bipolar disorder mixed with psychotic features. Mild cognitive impairment. Impulse control disorder unspecified. Anxiety disorder unspecified. Plan: No change from initial note. Assessment: Vital Signs/I&O: Vital Signs Date Time Temp Pulse Resp B/P (MAP) Pulse Ox O2 Delivery O2 Flow Rate FiO2 07/26/20 08:13 64 118/75 07/26/20 06:09 97.7 16 97 Room Air I & O 07/25/20 07/25/20 07/26/20 14:59 22:59 06:59 Intake Total 480 ml 720 ml Balance 480 ml 720 ml Current Medications: I have reviewed the current psychotropics carefully including drug interactions. Risk benefit ratio favors no change other than as noted in my dictated progress note. Diagnosis: Problems: (1) Schizoaffective disorder, bipolar type (2) Anxiety disorder, unspecified (3) Bipolar disorder, curr episode mixed, severe, with psychotic features (4) Major neurocognitive disorder (5) Impulse control disorder, unspecified OBDULIA MOLINA MD Jul 26, 2020 08:21
--- NOTE | 2020-07-26 12:18 | TX PLAN ---
Interdisciplinary Tx Plan Admission Information Jun 05, 2020 at 15:05 Legal Status (on Admission): Voluntary DPOA/Guardian Name: Adriana Olsen (Katy) Contact Other Contact Name: [facility] Other Contact Verified Code Status: Full Code Allergies: Coded Allergies: ramipril (Verified Allergy, Mild, Hives, 02/23/20) HANK Inhibitors (Verified Allergy, Unknown, 02/23/20) rifampin (Verified Allergy, Unknown, 02/23/20) Diagnoses Primary Diagnosis: Major Neurocognitive D/O Reasons for Admission: Aggressive, Relation/conflict, Agitated, Combative, Poor impulse control Problem in Patient's Words: Pt periodically has episodes with other residents Additional Admission Comments: According to the intake, pt was combative with another peer, pt hit the peer and threatens the peer. Pt is agitated. Problems Active Problems: Impulsive Poor boundaries Inactive Problems: Medication compliance Group participation Pt Strengths/Limitations Ability for Schoolcraft: Poor Cognitive Functioning/Ability: Fair Communication Skills/Ability: Fair Financial Resources: Fair Insight/Judgement: Poor Intellectual Ability: Fair Physical Health: Fair Social Skills: Poor Stability in Family: Good Stability in School/Work: Poor Verbal Skills: Fair Discharge Criteria Discharge Criteria: No need for close observ., Adequate arrangements @DC, Improved behavior, Improved mood/thought Preliminary Discharge Plan Preliminary DC Plan: Current Living Arrange. Special Precautions Fall Risk: Low Initial D/C Plan At this time, pt will discharge back to [facility] once stable. Identified Discharge Needs: Referral for psychiatry Currently Utilized Resources Currently Utilized Resources/P: Primary Care Physician Referrals Community Resources: Psychiatry services Identified Problems/Hx/Goals Objectives/Short-Term Goals Short Term Goals: Dec. Aggression, Dec. Outbursts, Improved Social Skills, Medication Stabilization, Monitor Med Effects Short Term Goals in Patient's: I want to go back to my own home. Interventions/Frequency Staff Interventions/Frequency&: Psychiatrist to assess pt at least 3x per week for medication management. Social Work to assess pt at least 2x per week for discharge planning and attention to barriers. Nursing to assess medications, manage behaviors and complete 15 minute checks on pt once stable. Encourage group participation in activities (if applicable) or 1:1 engagement based of the activity dept assessment. 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 Education: Pt graduated High school (12th grade) Community Follow-up Primary Care Physician Community Provider/Family Inpu: He just gets fixated on one thing about another resident and his behaviors increase with that person over time. 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 Pt continues to be calm, cooperative and compliant with all cares and medications. Pt does walk the hallway for exercise and can be intrusive with staff and some peers; however, is redirectable and apologetic afterwards. has sent multiple referrals for pt with no acceptance for admission. will continue to send referrals and keep pt family updated. CLEMENT LANIER Jul 26, 2020 12:17
[2020-07-26 15:52] VITALS: BP 130/72
[2020-07-26] MEDS: QUEtiapine 25 MG TABLET. PO SCH (20:11)
[2020-07-26] MEDS: ATORVASTATIN CALCIUM 10 MG TABLET. PO SCH (20:11)
[2020-07-26] MEDS: traZODone 50 MG TABLET. PO SCH (20:11)
--- NOTE | 2020-07-26 21:07 | PDOC ---
Exam Note: Jassi Note: Please also refer to the separate dictated note~for this date of service dictated separately.~Patient seen individually. Discussed the patient with Nursing staff reviewed the chart.~Reviewed interim history and current functioning. Reviewed vital signs,~Labs/ Radiology~and current medications noted below. Continue current treatment with the changes noted in the dictated addendum note Assessment: Vital Signs/I&O: Vital Signs Date Time Temp Pulse Resp B/P (MAP) Pulse Ox O2 Delivery O2 Flow Rate FiO2 07/26/20 15:52 98.5 87 17 130/72 (91) 94 07/26/20 06:09 Room Air I & O 07/25/20 07/25/20 07/26/20 15:00 23:00 07:00 Intake Total 480 ml 720 ml Balance 480 ml 720 ml Current Medications: I have reviewed the current psychotropics carefully including drug interactions. Risk benefit ratio favors no change other than as noted in my dictated progress note. Diagnosis: Problems: (1) Schizoaffective disorder, bipolar type (2) Anxiety disorder, unspecified (3) Bipolar disorder, curr episode mixed, severe, with psychotic features (4) Major neurocognitive disorder (5) Impulse control disorder, unspecified OBDULIA MOLINA MD Jul 26, 2020 21:07
[2020-07-27 06:31] VITALS: BP 138/72
--- NOTE | 2020-07-27 07:53 | PDOC ---
Exam Note: Jassi Note: This note is a late entry for 07/26/2020 covers elements not covered in my initial note. Subjective: The patient was reviewed on telehealth rounds in the morning of 07/26/2020 for treatment team meeting with Rhonda (transition social worker), Marzena, activity therapy, and Jessie RN. The Health Department has opened up the unit for admission and discharges following quarantine for Covid-19 exposure. Discussed with nursing staff, reviewed the chart. He slept 8 hours previous night. Overall the patient is doing better, less agitated but he spends much time in his room, but is ambulating better. He does not complain of knee pain. His daughter did call him later in the day and he was pleased with this. Review of Systems: Ambulation impaired. No CV, , pulmonary, eye system symptoms on review. Mental Status Exam: The patient is oriented to himself and situation. Speech is coherent. Abstraction is fair. Computation impaired. Attention span is short. Mood and affect is improved. Thought processes goal directed. Intellect average. Insight is good. Judgment is intact. Laboratory Data: Reviewed. Impression: Bipolar disorder mixed with psychotic features. Mild cognitive impairment. Impulse control disorder unspecified. Anxiety disorder unspecified. Plan: No change from initial note. Assessment: Vital Signs/I&O: Vital Signs Date Time Temp Pulse Resp B/P (MAP) Pulse Ox O2 Delivery O2 Flow Rate FiO2 07/27/20 06:31 97.2 101 20 138/72 (94) 98 07/26/20 06:09 Room Air I & O 07/26/20 07/26/20 07/27/20 15:00 23:00 07:00 Intake Total 1290 ml 600 ml Balance 1290 ml 600 ml Current Medications: I have reviewed the current psychotropics carefully including drug interactions. Risk benefit ratio favors no change other than as noted in my dictated progress note. Diagnosis: Problems: (1) Schizoaffective disorder, bipolar type (2) Anxiety disorder, unspecified (3) Bipolar disorder, curr episode mixed, severe, with psychotic features (4) Major neurocognitive disorder (5) Impulse control disorder, unspecified OBDULIA MOLINA MD Jul 27, 2020 07:53
[2020-07-27] MEDS: amLODIPine BESYLATE 10 MG TABLET PO SCH (08:49)
[2020-07-27] MEDS: GABAPENTIN 300 MG CAPSULE. PO SCH ×2 (08:49→20:00)
[2020-07-27] MEDS: CALCIUM CARBONATE 500 MG TAB.CHEW PO SCH ×3 (08:49→17:22)
[2020-07-27] MEDS: METOPROLOL SUCC 24HR ER 25 MG TAB.ER.24H. PO SCH (08:50)
[2020-07-27 15:55] VITALS: BP 146/66
[2020-07-27] MEDS: traZODone 50 MG TABLET. PO SCH (20:00)
[2020-07-27] MEDS: QUEtiapine 25 MG TABLET. PO SCH (20:01)
[2020-07-27] MEDS: ATORVASTATIN CALCIUM 10 MG TABLET. PO SCH (20:01)
--- NOTE | 2020-07-27 20:53 | PDOC ---
Exam Note: Jassi Note: Please also refer to the separate dictated note~for this date of service dictated separately.~Patient seen individually. Discussed the patient with Nursing staff reviewed the chart.~Reviewed interim history and current functioning. Reviewed vital signs,~Labs/ Radiology~and current medications noted below. Continue current treatment with the changes noted in the dictated addendum note Assessment: Vital Signs/I&O: Vital Signs Date Time Temp Pulse Resp B/P (MAP) Pulse Ox O2 Delivery O2 Flow Rate FiO2 07/27/20 15:55 98.1 77 16 146/66 (92) 96 Room Air I & O 07/26/20 07/26/20 07/27/20 15:00 23:00 07:00 Intake Total 1290 ml 600 ml Balance 1290 ml 600 ml Current Medications: I have reviewed the current psychotropics carefully including drug interactions. Risk benefit ratio favors no change other than as noted in my dictated progress note. Diagnosis: Problems: (1) Schizoaffective disorder, bipolar type (2) Anxiety disorder, unspecified (3) Bipolar disorder, curr episode mixed, severe, with psychotic features (4) Major neurocognitive disorder (5) Impulse control disorder, unspecified OBDULIA MOLINA MD Jul 27, 2020 20:53
[2020-07-28 06:03] VITALS: BP 160/90
[2020-07-28] MEDS: CALCIUM CARBONATE 500 MG TAB.CHEW PO SCH ×3 (08:40→17:33)
[2020-07-28] MEDS: amLODIPine BESYLATE 10 MG TABLET PO SCH (08:40)
[2020-07-28] MEDS: METOPROLOL SUCC 24HR ER 25 MG TAB.ER.24H. PO SCH (08:40)
[2020-07-28] MEDS: GABAPENTIN 300 MG CAPSULE. PO SCH ×2 (08:41→19:50)
--- NOTE | 2020-07-28 09:57 | PDOC ---
Exam Note: Jassi Note: This note is a late entry for 07/27/2020 covers elements not covered in my initial note. Subjective: The patient was reviewed on telehealth rounds in the evening of 07/27/2020 with Sami HOLLINGSWORTH. Discussed with nursing staff, reviewed the chart. He slept 7-1/2 hours previous night. He has done reasonably well. He denies any knee pain and assessment and observations were completed by nursing staff as part of my evaluation. Review of Systems: Ambulation impaired. No CV, , pulmonary, eye system symptoms on review. Mental Status Exam: The patient is reasonably oriented to himself and situation. Speech is coherent. Abstraction is fair. Computation impaired. Language function intact. Mood and affect is improved. Laboratory Data: Reviewed. Impression: Bipolar disorder mixed with psychotic features. Mild cognitive impairment. Impulse control disorder unspecified. Anxiety disorder unspecified. Plan: No change from initial note. Assessment: Vital Signs/I&O: Vital Signs Date Time Temp Pulse Resp B/P (MAP) Pulse Ox O2 Delivery O2 Flow Rate FiO2 07/28/20 08:40 69 160/90 07/28/20 06:03 97.1 16 97 Room Air I & O 07/27/20 07/27/20 07/28/20 14:59 22:59 06:59 Intake Total 840 ml 720 ml Balance 840 ml 720 ml Current Medications: I have reviewed the current psychotropics carefully including drug interactions. Risk benefit ratio favors no change other than as noted in my dictated progress note. Diagnosis: Problems: (1) Schizoaffective disorder, bipolar type (2) Anxiety disorder, unspecified (3) Bipolar disorder, curr episode mixed, severe, with psychotic features (4) Major neurocognitive disorder (5) Impulse control disorder, unspecified OBDULAI MOLINA MD Jul 28, 2020 09:57
[2020-07-28 15:48] VITALS: BP 125/83
[2020-07-28] MEDS: QUEtiapine 25 MG TABLET. PO SCH (19:51)
[2020-07-28] MEDS: ATORVASTATIN CALCIUM 10 MG TABLET. PO SCH (19:51)
[2020-07-28] MEDS: traZODone 50 MG TABLET. PO SCH (19:51)
[2020-07-29 06:00] VITALS: BP 154/81
[2020-07-29] MEDS: GABAPENTIN 300 MG CAPSULE. PO SCH ×2 (08:50→20:03)
[2020-07-29] MEDS: CALCIUM CARBONATE 500 MG TAB.CHEW PO SCH ×3 (08:51→17:28)
[2020-07-29] MEDS: METOPROLOL SUCC 24HR ER 25 MG TAB.ER.24H. PO SCH (08:51)
[2020-07-29] MEDS: amLODIPine BESYLATE 10 MG TABLET PO SCH (08:51)
[2020-07-29] MEDS: CETIRIZINE HCL 10 MG TABLET PO PRN (12:21)
[2020-07-29 18:18] VITALS: BP 133/77
[2020-07-29] MEDS: traZODone 50 MG TABLET. PO SCH (20:03)
[2020-07-29] MEDS: ATORVASTATIN CALCIUM 10 MG TABLET. PO SCH (20:03)
[2020-07-29] MEDS: QUEtiapine 25 MG TABLET. PO SCH (20:03)
--- NOTE | 2020-07-29 22:26 | PDOC ---
Exam Note: Jassi Note: Please also refer to the separate dictated note~for this date of service dictated separately.~Patient seen individually. Discussed the patient with Nursing staff reviewed the chart.~Reviewed interim history and current functioning. Reviewed vital signs,~Labs/ Radiology~and current medications noted below. Continue current treatment with the changes noted in the dictated addendum note Assessment: Vital Signs/I&O: Vital Signs Date Time Temp Pulse Resp B/P (MAP) Pulse Ox O2 Delivery O2 Flow Rate FiO2 07/29/20 18:18 97.9 79 16 133/77 (95) 96 07/29/20 06:00 Room Air I & O 07/28/20 07/28/20 07/29/20 15:00 23:00 07:00 Intake Total 720 ml 720 ml Balance 720 ml 720 ml Current Medications: I have reviewed the current psychotropics carefully including drug interactions. Risk benefit ratio favors no change other than as noted in my dictated progress note. Diagnosis: Problems: (1) Schizoaffective disorder, bipolar type (2) Anxiety disorder, unspecified (3) Bipolar disorder, curr episode mixed, severe, with psychotic features (4) Major neurocognitive disorder (5) Impulse control disorder, unspecified OBDULIA MOLINA MD Jul 29, 2020 22:26
--- NOTE | 2020-07-29 22:26 | PDOC ---
Exam Note: Jassi Note: This is a late entry for 07/28/2020. Please also refer to the separate dictated note~for this date of service dictated separately.~Patient seen individually. Discussed the patient with Nursing staff reviewed the chart.~Reviewed interim history and current functioning. Reviewed vital signs,~Labs/ Radiology~and cur rent medications noted below. Continue current treatment with the changes noted in the dictated addendum note Assessment: Vital Signs/I&O: Vital Signs Date Time Temp Pulse Resp B/P (MAP) Pulse Ox O2 Delivery O2 Flow Rate FiO2 07/29/20 18:18 97.9 79 16 133/77 (95) 96 07/29/20 06:00 Room Air I & O 07/28/20 07/28/20 07/29/20 15:00 23:00 07:00 Intake Total 720 ml 720 ml Balance 720 ml 720 ml Current Medications: I have reviewed the current psychotropics carefully including drug interactions. Risk benefit ratio favors no change other than as noted in my dictated progress note. Diagnosis: Problems: (1) Schizoaffective disorder, bipolar type (2) Anxiety disorder, unspecified (3) Bipolar disorder, curr episode mixed, severe, with psychotic features (4) Major neurocognitive disorder (5) Impulse control disorder, unspecified OBDULIA MOLINA MD Jul 29, 2020 22:26
[2020-07-30 05:04] VITALS: BP 131/71
[2020-07-30] MEDS: amLODIPine BESYLATE 10 MG TABLET PO SCH (07:41)
[2020-07-30] MEDS: CALCIUM CARBONATE 500 MG TAB.CHEW PO SCH ×3 (07:41→17:54)
[2020-07-30] MEDS: GABAPENTIN 300 MG CAPSULE. PO SCH ×2 (07:41→20:06)
[2020-07-30] MEDS: METOPROLOL SUCC 24HR ER 25 MG TAB.ER.24H. PO SCH (07:41)
--- NOTE | 2020-07-30 07:55 | PDOC ---
Exam Note: Jassi Note: This note is a late entry for 07/28/2020 covers elements not covered in my initial note. Subjective: The patient was reviewed on telehealth rounds in the evening of 07/28/2020 with Vel HOLLINGSWORTH. Discussed with nursing staff, reviewed the chart. He slept 8-1/2 hours previous night. Review of Systems: Ambulation impaired. No CV, , pulmonary, eye system symptoms on review. He does not complain of right knee pain. Mental Status Exam: The patient is reasonably oriented to himself and situation. He has been pleasant, cooperative. He is still withdrawn to his room but quite verbal, interactive as I met with him. Speech is coherent. Abstraction is fair. Computation impaired. Language function intact. Mood and affect is withdrawn. We discharged upcoming discharge plans and I will defer to social service staff to coordinate with his family for appropriate placement. Laboratory Data: Reviewed. Impression: Bipolar disorder mixed with psychotic features. Mild cognitive impairment. Impulse control disorder unspecified. Anxiety disorder unspecified. Plan: No change from initial note. Assessment: Vital Signs/I&O: Vital Signs Date Time Temp Pulse Resp B/P (MAP) Pulse Ox O2 Delivery O2 Flow Rate FiO2 07/30/20 07:41 58 131/71 07/30/20 05:04 97.7 16 97 07/29/20 06:00 Room Air I & O 07/29/20 07/29/20 07/30/20 15:00 23:00 07:00 Intake Total 960 ml 600 ml Balance 960 ml 600 ml Current Medications: I have reviewed the current psychotropics carefully including drug interactions. Risk benefit ratio favors no change other than as noted in my dictated progress note. Diagnosis: Problems: (1) Schizoaffective disorder, bipolar type (2) Anxiety disorder, unspecified (3) Bipolar disorder, curr episode mixed, severe, with psychotic features (4) Major neurocognitive disorder (5) Impulse control disorder, unspecified OBDULIA MOLINA MD Jul 30, 2020 07:55
--- NOTE | 2020-07-30 08:18 | PDOC ---
Exam Note: Jassi Note: This note is a late entry for 07/29/2020 covers elements not covered in my initial note. Subjective: The patient was reviewed on telehealth rounds in the evening of 07/29/2020 with Vel HOLLINGSWORTH. Discussed with nursing staff, reviewed the chart. He slept 7-1/2 hours previous night. The patient has been somewhat anxious, repeatedly going to Shirin, social service staff and asking about discharge plans. Otherwise, pleasant and cooperative. Denies any knee pain. Review of Systems: Ambulation impaired. No CV, , pulmonary, eye system symptoms on review. Denies any knee pain. Mental Status Exam: The patient is reasonably oriented to himself and situation. He has been pleasant, verbal, interactive, had questions about discharge plans which we addressed. Speech is coherent. Abstraction is fair. Computation impaired. Language function intact. Mood and affect is withdrawn. Laboratory Data: Reviewed. Impression: Bipolar disorder mixed with psychotic features. Mild cognitive impairment. Impulse control disorder unspecified. Anxiety disorder unspecified. Plan: No change from initial note. Assessment: Vital Signs/I&O: Vital Signs Date Time Temp Pulse Resp B/P (MAP) Pulse Ox O2 Delivery O2 Flow Rate FiO2 07/30/20 07:41 58 131/71 07/30/20 05:04 97.7 16 97 07/29/20 06:00 Room Air I & O 07/29/20 07/29/20 07/30/20 14:59 22:59 06:59 Intake Total 960 ml 600 ml Balance 960 ml 600 ml Current Medications: I have reviewed the current psychotropics carefully including drug interactions. Risk benefit ratio favors no change other than as noted in my dictated progress note. Diagnosis: Problems: (1) Schizoaffective disorder, bipolar type (2) Anxiety disorder, unspecified (3) Bipolar disorder, curr episode mixed, severe, with psychotic features (4) Major neurocognitive disorder (5) Impulse control disorder, unspecified OBDULIA MOLINA MD Jul 30, 2020 08:18
[2020-07-30 15:56] VITALS: BP 140/80
[2020-07-30] MEDS: traZODone 50 MG TABLET. PO SCH (20:06)
[2020-07-30] MEDS: ATORVASTATIN CALCIUM 10 MG TABLET. PO SCH (20:06)
[2020-07-30] MEDS: QUEtiapine 25 MG TABLET. PO SCH (20:06)
[2020-07-31 06:19] VITALS: BP 141/70
[2020-07-31] MEDS: METOPROLOL SUCC 24HR ER 25 MG TAB.ER.24H. PO SCH (07:56)
[2020-07-31] MEDS: amLODIPine BESYLATE 10 MG TABLET PO SCH (07:56)
[2020-07-31] MEDS: CALCIUM CARBONATE 500 MG TAB.CHEW PO SCH ×3 (07:57→17:35)
[2020-07-31] MEDS: GABAPENTIN 300 MG CAPSULE. PO SCH ×2 (07:57→19:18)
[2020-07-31 15:48] VITALS: BP 146/95
[2020-07-31] MEDS: QUEtiapine 25 MG TABLET. PO SCH (19:18)
[2020-07-31] MEDS: traZODone 50 MG TABLET. PO SCH (19:18)
[2020-07-31] MEDS: ATORVASTATIN CALCIUM 10 MG TABLET. PO SCH (19:18)
[2020-08-01 05:30] VITALS: BP 146/79
--- NOTE | 2020-08-01 08:11 | PN ---
DATE: 07/31/2020 SUBJECTIVE: The patient is a late entry for the service date 07/31/2020. Covering for Dr. Santamaria. The patient was evaluated by telehealth, met with the staff, and chart reviewed. Staff reports no major behavior problems, still anxious, wanting to go home. He keeps in contact with his daughter. The patient is scheduled for discharge as soon as placement is available. OBSERVATION: VITAL SIGNS: Temperature 97.5, blood pressure 141/70, pulse 56, respirations 16, O2 sat 98%. GENERAL: Slept about 7 hours last night. The patient's appetite is fair. The patient's medications have been reviewed. Also, lab reviewed. He denies of having any side effects to medications. His mental status has improved. He is alert, oriented to surroundings, able to hold a reasonable conversation, but slow to respond to questions. His affect and mood showed he is not depressed. No evidence of any psychotic symptoms. No problems with impulse control. The patient currently not exhibiting any psychotic symptoms. No suicidal thoughts. ASSESSMENT: 1. Bipolar disorder, mixed, with psychotic features. 2. Mild cognitive impairment. 3. Impulse control disorder, unspecified and anxiety disorder, unspecified. PLAN: Continue with the current treatment plan. The patient will be seen by Dr. Santamaria tomorrow. MEDHAT BACON MD DR: CÉSAR/eileen JOB#: [id number] / [id number]
[2020-08-01] MEDS: METOPROLOL SUCC 24HR ER 25 MG TAB.ER.24H. PO SCH (08:22)
[2020-08-01] MEDS: CALCIUM CARBONATE 500 MG TAB.CHEW PO SCH ×3 (08:22→16:47)
[2020-08-01] MEDS: GABAPENTIN 300 MG CAPSULE. PO SCH ×2 (08:23→19:31)
[2020-08-01] MEDS: amLODIPine BESYLATE 10 MG TABLET PO SCH (08:23)
[2020-08-01 10:19] LABS: BASO # 0.1 x10^3/uL (0.0-0.2); BASO % 1 % (0-3); EOS # 0.2 x10^3/uL (0.0-0.7); EOS % 3 % (0-3); HEMATOCRIT 42.5 % (39.0-53.0); HEMOGLOBIN 14.3 g/dL (13.0-17.5); LYMPH # 1.1 x10^3/uL (1.0-4.8); LYMPH % 17 % (24-48); MEAN CORPUSCULAR HEMOGLOBIN 31 pg (25-35); MEAN CORPUSCULAR HGB CONC 34 g/dL (31-37); MEAN CORPUSCULAR VOLUME 93 fL (79-100); MONO # 0.8 x10^3/uL (0.0-1.1); MONO % 14 % (0-9); NEUT % 65 % (31-73); PLATELET COUNT 332 x10^3/uL (140-400); RED BLOOD COUNT 4.59 x10^6/uL (4.30-5.70); RED CELL DISTRIBUTION WIDTH 13.3 % (11.5-14.5); WHITE BLOOD COUNT 6.2 x10^3/uL (4.0-11.0)
[2020-08-01 10:34] LABS: ALBUMIN 3.8 g/dL (3.4-5.0); CALCIUM 9.4 mg/dL (8.5-10.1); CREATININE 1.1 mg/dL (0.7-1.3); POTASSIUM 3.9 mmol/L (3.5-5.1); TOTAL BILIRUBIN 0.4 mg/dL (0.2-1.0); TOTAL PROTEIN 7.5 g/dL (6.4-8.2)
--- NOTE | 2020-08-01 13:06 | PN ---
DATE: 08/01/2020 SUBJECTIVE: The patient was seen today by telehealth, met with the staff, chart reviewed and also covering for Dr. Santamaria. The patient's behavior remains the same. The patient is able to hold a reasonable conversation. The patient is mainly concerned about discharge, wanting to go home, apparently they are not able to find a placement because the patient had problems with the previous placements. OBJECTIVE: VITAL SIGNS: Temperature 97.6, blood pressure 146/79, pulse 58, respiration 18, O2 sat 96%. GENERAL: Slept about 7 hours last night. The patient's appetite improved. NEUROLOGIC: His mental status has improved. He is alert, oriented and able to make eye contact. His behavior was appropriate, somewhat intrusive, able to interact with the staff and other residents. His speech is clear, normal rate and rhythm. His affect and mood showed he is anxious at times, some constriction of affect and no evidence of any depression, negative thoughts or any psychotic symptoms. He is oriented to surroundings. He has mild cognitive deficits. Judgment limited. Insight poor. MEDICATIONS: Reviewed, currently is not having any side effects. LABORATORY DATA: Reviewed. ASSESSMENT: 1. Bipolar disorder, mixed, with psychotic features. 2. Mild cognitive disorder. 3. Impulse control disorder, unspecified. 4. Anxiety disorder, unspecified. PLAN: To continue with the treatment. He is awaiting for placement. MEDHAT BACON MD DR: CÉSAR/eileen JOB#: [id number] / [id number]
[2020-08-01 14:22] VITALS: BP 152/82
[2020-08-01 15:00] VITALS: BP 152/82
[2020-08-01] MEDS: traZODone 50 MG TABLET. PO SCH (19:31)
[2020-08-01] MEDS: QUEtiapine 25 MG TABLET. PO SCH (19:31)
[2020-08-01] MEDS: ATORVASTATIN CALCIUM 10 MG TABLET. PO SCH (19:32)
[2020-08-02 05:41] VITALS: BP 135/76
[2020-08-02] MEDS: METOPROLOL SUCC 24HR ER 25 MG TAB.ER.24H. PO SCH (09:40)
[2020-08-02] MEDS: GABAPENTIN 300 MG CAPSULE. PO SCH ×2 (09:40→19:58)
[2020-08-02] MEDS: CALCIUM CARBONATE 500 MG TAB.CHEW PO SCH ×3 (09:40→17:47)
[2020-08-02] MEDS: amLODIPine BESYLATE 10 MG TABLET PO SCH (09:40)
[2020-08-02] MEDS: CHOLECALCIFEROL (VITAMIN D3) 50,000 UNIT CAPSULE PO SCH (09:41)
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
[2020-08-02] MEDS: ATORVASTATIN CALCIUM 10 MG TABLET. PO SCH (19:57)
[2020-08-02] MEDS: QUEtiapine 25 MG TABLET. PO SCH (19:57)
[2020-08-02] MEDS: traZODone 50 MG TABLET. PO SCH (19:58)
--- NOTE | 2020-08-02 21:01 | PDOC ---
Exam Note: Jassi Note: Please also refer to the separate dictated note~for this date of service dictated separately.~Patient seen individually. Discussed the patient with Nursing staff reviewed the chart.~Reviewed interim history and current functioning. Reviewed vital signs,~Labs/ Radiology~and current medications noted below. Continue current treatment with the changes noted in the dictated addendum note Assessment: Vital Signs/I&O: Vital Signs Date Time Temp Pulse Resp B/P (MAP) Pulse Ox O2 Delivery O2 Flow Rate FiO2 08/02/20 09:40 72 135/76 08/02/20 05:41 97.3 18 95 Room Air I & O 08/01/20 08/01/20 08/02/20 14:59 22:59 06:59 Intake Total 720 ml 840 ml Balance 720 ml 840 ml Current Medications: I have reviewed the current psychotropics carefully including drug interactions. Risk benefit ratio favors no change other than as noted in my dictated progress note. Diagnosis: Problems: (1) Schizoaffective disorder, bipolar type (2) Anxiety disorder, unspecified (3) Bipolar disorder, curr episode mixed, severe, with psychotic features (4) Major neurocognitive disorder (5) Impulse control disorder, unspecified (6) Impulse control disorder OBDULIA MOLINA MD Aug 02, 2020 21:01
[2020-08-03 05:58] VITALS: BP 133/80
[2020-08-03] MEDS: amLODIPine BESYLATE 10 MG TABLET PO SCH (10:14)
[2020-08-03] MEDS: METOPROLOL SUCC 24HR ER 25 MG TAB.ER.24H. PO SCH (10:15)
[2020-08-03] MEDS: CALCIUM CARBONATE 500 MG TAB.CHEW PO SCH ×3 (10:15→17:16)
[2020-08-03] MEDS: GABAPENTIN 300 MG CAPSULE. PO SCH ×2 (10:15→19:54)
[2020-08-03 15:59] VITALS: BP 131/88
[2020-08-03] MEDS: QUEtiapine 25 MG TABLET. PO SCH (19:54)
[2020-08-03] MEDS: ATORVASTATIN CALCIUM 10 MG TABLET. PO SCH (19:54)
[2020-08-03] MEDS: traZODone 50 MG TABLET. PO SCH (19:54)
--- NOTE | 2020-08-03 20:48 | PDOC ---
Exam Note: Jassi Note: Please also refer to the separate dictated note~for this date of service dictated separately.~Patient seen individually. Discussed the patient with Nursing staff reviewed the chart.~Reviewed interim history and current functioning. Reviewed vital signs,~Labs/ Radiology~and current medications noted below. Continue current treatment with the changes noted in the dictated addendum note Assessment: Vital Signs/I&O: Vital Signs Date Time Temp Pulse Resp B/P (MAP) Pulse Ox O2 Delivery O2 Flow Rate FiO2 08/03/20 15:59 97.9 71 16 131/88 (102) 97 08/02/20 05:41 Room Air I & O 08/02/20 08/02/20 08/03/20 14:59 22:59 06:59 Intake Total 840 ml 120 ml Balance 840 ml 120 ml Current Medications: I have reviewed the current psychotropics carefully including drug interactions. Risk benefit ratio favors no change other than as noted in my dictated progress note. Diagnosis: Problems: (1) Schizoaffective disorder, bipolar type (2) Anxiety disorder, unspecified (3) Bipolar disorder, curr episode mixed, severe, with psychotic features (4) Major neurocognitive disorder (5) Impulse control disorder, unspecified OBDULIA MOLINA MD Aug 03, 2020 20:48
[2020-08-04 05:38] VITALS: BP 131/74
[2020-08-04] MEDS: amLODIPine BESYLATE 10 MG TABLET PO SCH (08:34)
[2020-08-04] MEDS: GABAPENTIN 300 MG CAPSULE. PO SCH ×2 (08:34→20:01)
[2020-08-04] MEDS: CALCIUM CARBONATE 500 MG TAB.CHEW PO SCH ×3 (08:34→17:12)
[2020-08-04] MEDS: METOPROLOL SUCC 24HR ER 25 MG TAB.ER.24H. PO SCH (08:34)
[2020-08-04 15:39] VITALS: BP 137/77
[2020-08-04] MEDS: traZODone 50 MG TABLET. PO SCH (20:01)
[2020-08-04] MEDS: QUEtiapine 25 MG TABLET. PO SCH (20:01)
[2020-08-04] MEDS: ATORVASTATIN CALCIUM 10 MG TABLET. PO SCH (20:01)
--- NOTE | 2020-08-04 21:15 | PDOC ---
Exam Note: Jassi Note: This note is a late entry for 08/02/2020 covers elements not covered in my initial note. Subjective: The patient was reviewed on telehealth rounds in the morning of 08/02/2020 for a treatment team meeting with Samra Hsu and Shirin (social media manager), Rosana, activity therapy and Niya HOLLINGSWORTH. Discussed with nursing staff, reviewed the chart. He slept 8 hours previous night. Appetite is fair. Review of Systems: Ambulation impaired. No CV, , pulmonary, eye system symptoms on review. Mental Status Exam: The patient is awake, alert, and oriented. Speech is coherent. Abstraction is fair. Computation impaired. Language function intact. Attention span is somewhat distractible. Mood and affect is improved. Laboratory Data: Reviewed. Impression: Bipolar disorder mixed with psychotic features. Mild cognitive impairment. Impulse control disorder unspecified. Anxiety disorder unspecified. Plan: No change from initial note. Maintain Seroquel, trazodone, and gabapentin. Discussed discharge plans. The patient is ready to leave as soon as placement is found. Assessment: Vital Signs/I&O: Vital Signs Date Time Temp Pulse Resp B/P (MAP) Pulse Ox O2 Delivery O2 Flow Rate FiO2 08/04/20 15:39 98.1 89 16 137/77 (97) 94 08/02/20 05:41 Room Air I & O 08/03/20 08/03/20 08/04/20 15:00 23:00 07:00 Intake Total 480 ml 480 ml Balance 480 ml 480 ml Current Medications: I have reviewed the current psychotropics carefully including drug interactions. Risk benefit ratio favors no change other than as noted in my dictated progress note. Diagnosis: Problems: (1) Schizoaffective disorder, bipolar type (2) Anxiety disorder, unspecified (3) Bipolar disorder, curr episode mixed, severe, with psychotic features (4) Major neurocognitive disorder (5) Impulse control disorder, unspecified OBDULIA MOLINA MD Aug 04, 2020 21:15
--- NOTE | 2020-08-04 21:41 | PDOC ---
Exam Note: Jassi Note: This note is a late entry for 08/03/2020 covers elements not covered in my initial note. Subjective: The patient was reviewed on telehealth rounds in the evening of 08/03/2020 with Jessie HOLLINGSWORTH. Discussed with nursing staff, reviewed the chart. He slept 8 hours previous night. Appetite is fair. The patient is more verbally interactive, appropriate. Earlier this week he had packed his belongings ready to go but we discussed he needs a placement before he leaves. Review of Systems: Ambulation impaired. No CV, , pulmonary, eye system symptoms on review. Mental Status Exam: The patient is awake, alert, and oriented. Speech is coherent. Abstraction is fair. Computation impaired. Language function intact. Attention span is somewhat distractible. Mood and affect is improved. Laboratory Data: Reviewed. Impression: Bipolar disorder mixed with psychotic features. Mild cognitive impairment. Impulse control disorder unspecified. Anxiety disorder unspecified. Plan: No change from initial note. Assessment: Vital Signs/I&O: Vital Signs Date Time Temp Pulse Resp B/P (MAP) Pulse Ox O2 Delivery O2 Flow Rate FiO2 08/04/20 15:39 98.1 89 16 137/77 (97) 94 08/02/20 05:41 Room Air I & O 08/03/20 08/03/20 08/04/20 15:00 23:00 07:00 Intake Total 480 ml 480 ml Balance 480 ml 480 ml Current Medications: I have reviewed the current psychotropics carefully including drug interactions. Risk benefit ratio favors no change other than as noted in my dictated progress note. Diagnosis: Problems: (1) Schizoaffective disorder, bipolar type (2) Anxiety disorder, unspecified (3) Bipolar disorder, curr episode mixed, severe, with psychotic features (4) Major neurocognitive disorder (5) Impulse control disorder, unspecified OBDULIA MOLINA MD Aug 04, 2020 21:41
--- NOTE | 2020-08-04 21:51 | PDOC ---
Exam Note: Jassi Note: Please also refer to the separate dictated note~for this date of service dictated separately.~Patient seen individually. Discussed the patient with Nursing staff reviewed the chart.~Reviewed interim history and current functioning. Reviewed vital signs,~Labs/ Radiology~and current medications noted below. Continue current treatment with the changes noted in the dictated addendum note Assessment: Vital Signs/I&O: Vital Signs Date Time Temp Pulse Resp B/P (MAP) Pulse Ox O2 Delivery O2 Flow Rate FiO2 08/04/20 15:39 98.1 89 16 137/77 (97) 94 08/02/20 05:41 Room Air I & O 08/03/20 08/03/20 08/04/20 15:00 23:00 07:00 Intake Total 480 ml 480 ml Balance 480 ml 480 ml Current Medications: I have reviewed the current psychotropics carefully including drug interactions. Risk benefit ratio favors no change other than as noted in my dictated progress note. Diagnosis: Problems: (1) Schizoaffective disorder, bipolar type (2) Anxiety disorder, unspecified (3) Bipolar disorder, curr episode mixed, severe, with psychotic features (4) Major neurocognitive disorder (5) Impulse control disorder, unspecified OBDULIA MOLINA MD Aug 04, 2020 21:51
[2020-08-05 06:02] VITALS: BP 123/80
[2020-08-05] MEDS: GABAPENTIN 300 MG CAPSULE. PO SCH ×2 (08:14→19:48)
[2020-08-05] MEDS: CALCIUM CARBONATE 500 MG TAB.CHEW PO SCH ×3 (08:15→13:23)
[2020-08-05] MEDS: METOPROLOL SUCC 24HR ER 25 MG TAB.ER.24H. PO SCH (08:15)
[2020-08-05] MEDS: amLODIPine BESYLATE 10 MG TABLET PO SCH (08:16)
[2020-08-05 16:17] VITALS: BP 129/82
[2020-08-05] MEDS: traZODone 50 MG TABLET. PO SCH (19:48)
[2020-08-05] MEDS: QUEtiapine 25 MG TABLET. PO SCH (19:48)
[2020-08-05] MEDS: ATORVASTATIN CALCIUM 10 MG TABLET. PO SCH (19:48)
--- NOTE | 2020-08-05 20:57 | PDOC ---
Exam Note: Jassi Note: Please also refer to the separate dictated note~for this date of service dictated separately.~Patient seen individually. Discussed the patient with Nursing staff reviewed the chart.~Reviewed interim history and current functioning. Reviewed vital signs,~Labs/ Radiology~and current medications noted below. Continue current treatment with the changes noted in the dictated addendum note Assessment: Vital Signs/I&O: Vital Signs Date Time Temp Pulse Resp B/P (MAP) Pulse Ox O2 Delivery O2 Flow Rate FiO2 08/05/20 16:17 97.8 64 20 129/82 (98) 98 08/05/20 06:02 Room Air I & O 08/04/20 08/04/20 08/05/20 15:00 23:00 07:00 Intake Total 600 ml 480 ml Balance 600 ml 480 ml Current Medications: I have reviewed the current psychotropics carefully including drug interactions. Risk benefit ratio favors no change other than as noted in my dictated progress note. Diagnosis: Problems: (1) Schizoaffective disorder, bipolar type (2) Anxiety disorder, unspecified (3) Bipolar disorder, curr episode mixed, severe, with psychotic features (4) Major neurocognitive disorder (5) Impulse control disorder, unspecified OBDULIA MOLINA MD Aug 05, 2020 20:56
[2020-08-05] MEDS: CYCLOBENZAPRINE 10 MG TABLET. PO PRN (21:11)
[2020-08-06 05:27] VITALS: BP 105/66
[2020-08-06] MEDS: amLODIPine BESYLATE 10 MG TABLET PO SCH (08:13)
[2020-08-06] MEDS: METOPROLOL SUCC 24HR ER 25 MG TAB.ER.24H. PO SCH (08:13)
[2020-08-06] MEDS: CALCIUM CARBONATE 500 MG TAB.CHEW PO SCH ×4 (08:13→18:00)
[2020-08-06] MEDS: GABAPENTIN 300 MG CAPSULE. PO SCH ×2 (08:13→19:50)
[2020-08-06 16:18] VITALS: BP 122/75
[2020-08-06] MEDS: ATORVASTATIN CALCIUM 10 MG TABLET. PO SCH (19:50)
[2020-08-06] MEDS: traZODone 50 MG TABLET. PO SCH (19:50)
[2020-08-06] MEDS: QUEtiapine 25 MG TABLET. PO SCH (19:51)
[2020-08-06] MEDS: CYCLOBENZAPRINE 10 MG TABLET. PO PRN (20:24)
--- NOTE | 2020-08-06 20:40 | PDOC ---
Exam Note: Jassi Note: Please also refer to the separate dictated note~for this date of service dictated separately.~Patient seen individually. Discussed the patient with Nursing staff reviewed the chart.~Reviewed interim history and current functioning. Reviewed vital signs,~Labs/ Radiology~and current medications noted below. Continue current treatment with the changes noted in the dictated addendum note Assessment: Vital Signs/I&O: Vital Signs Date Time Temp Pulse Resp B/P (MAP) Pulse Ox O2 Delivery O2 Flow Rate FiO2 08/06/20 16:18 98.2 92 16 122/75 (91) 93 08/05/20 06:02 Room Air I & O 08/05/20 08/05/20 08/06/20 15:00 23:00 07:00 Intake Total 360 ml 840 ml Balance 360 ml 840 ml Current Medications: I have reviewed the current psychotropics carefully including drug interactions. Risk benefit ratio favors no change other than as noted in my dictated progress note. Diagnosis: Problems: (1) Schizoaffective disorder, bipolar type (2) Anxiety disorder, unspecified (3) Bipolar disorder, curr episode mixed, severe, with psychotic features (4) Major neurocognitive disorder (5) Impulse control disorder, unspecified OBDULIA MOLINA MD Aug 06, 2020 20:40
[2020-08-07 06:27] VITALS: BP 114/66
[2020-08-07] MEDS: CALCIUM CARBONATE 500 MG TAB.CHEW PO SCH ×3 (08:22→17:42)
[2020-08-07] MEDS: GABAPENTIN 300 MG CAPSULE. PO SCH ×2 (08:22→19:58)
[2020-08-07] MEDS: amLODIPine BESYLATE 10 MG TABLET PO SCH (08:23)
[2020-08-07] MEDS: METOPROLOL SUCC 24HR ER 25 MG TAB.ER.24H. PO SCH (08:23)
[2020-08-07 16:01] VITALS: BP 136/83
[2020-08-07] MEDS: QUEtiapine 25 MG TABLET. PO SCH (19:58)
[2020-08-07] MEDS: ATORVASTATIN CALCIUM 10 MG TABLET. PO SCH (19:58)
[2020-08-07] MEDS: traZODone 50 MG TABLET. PO SCH (19:58)
[2020-08-07] MEDS: CYCLOBENZAPRINE 10 MG TABLET. PO PRN (20:00)
--- NOTE | 2020-08-07 21:27 | PDOC ---
Exam Note: Jassi Note: This note is a late entry for 08/04/2020 covers elements not covered in my initial note. Subjective: The patient was reviewed on telehealth rounds in the evening of 08/04/2020 with Niya HOLLINGSWORTH. Discussed with nursing staff, reviewed the chart. He slept 8 hours previous night. Overall the patient is doing reasonably well. He has not voiced any overt delusional statements. He has his bags packed, expecting to be discharged but social service staff are still finding appropriate placement in coordination with his daughter who is his DPOA. Review of Systems: Ambulation impaired. No CV, , pulmonary, eye system symptoms on review. Mental Status Exam: The patient is reasonably oriented. Speech is coherent, quite animated as I met with him. Abstraction is fair. Computation reasonable. Language function intact. Attention span is fair. Mood and affect is improved. No psychotic symptoms, suicidal or homicidal ideation. Laboratory Data: Reviewed. Impression: Bipolar disorder mixed with psychotic features. Mild cognitive impairment. Impulse control disorder unspecified. Anxiety disorder unspecified. Plan: No change from initial note. Assessment: Vital Signs/I&O: Vital Signs Date Time Temp Pulse Resp B/P (MAP) Pulse Ox O2 Delivery O2 Flow Rate FiO2 08/07/20 16:01 98.9 80 16 136/83 (100) 95 08/07/20 06:27 Room Air I & O 08/06/20 08/06/20 08/07/20 15:00 23:00 07:00 Intake Total 840 ml 840 ml Balance 840 ml 840 ml Current Medications: I have reviewed the current psychotropics carefully including drug interactions. Risk benefit ratio favors no change other than as noted in my dictated progress note. Diagnosis: Problems: (1) Schizoaffective disorder, bipolar type (2) Anxiety disorder, unspecified (3) Bipolar disorder, curr episode mixed, severe, with psychotic features (4) Major neurocognitive disorder (5) Impulse control disorder, unspecified OBDULIA MOLINA MD Aug 07, 2020 21:27
--- NOTE | 2020-08-07 21:40 | PDOC ---
Exam Note: Jassi Note: This note is a late entry for 08/05/2020 covers elements not covered in my initial note. Subjective: The patient was reviewed on telehealth rounds in the morning of 08/05/2020 for a treatment team meeting with Samra Hsu and Shirin (social services specialist), Rosana, activity therapy and Jessie HOLLINGSWORTH. Discussed with nursing staff, reviewed the chart. He slept 6-3/4 hours previous night. Review of Systems: Ambulation impaired. No CV, , pulmonary, eye system symptoms on review. Mental Status Exam: The patient is oriented. He is pleasant, verbal, interactive, less fixated on discharge plans. Speech is coherent. Abstraction is fair. Computation impaired. Language function intact. Attention span is somewhat distractible. Mood and affect is improved. Laboratory Data: Reviewed. Impression: Bipolar disorder mixed with psychotic features. Mild cognitive impairment. Impulse control disorder unspecified. Anxiety disorder unspecified. Plan: No change from initial note. Assessment: Vital Signs/I&O: Vital Signs Date Time Temp Pulse Resp B/P (MAP) Pulse Ox O2 Delivery O2 Flow Rate FiO2 08/07/20 16:01 98.9 80 16 136/83 (100) 95 08/07/20 06:27 Room Air I & O 08/06/20 08/06/20 08/07/20 15:00 23:00 07:00 Intake Total 840 ml 840 ml Balance 840 ml 840 ml Current Medications: I have reviewed the current psychotropics carefully including drug interactions. Risk benefit ratio favors no change other than as noted in my dictated progress note. Diagnosis: Problems: (1) Schizoaffective disorder, bipolar type (2) Anxiety disorder, unspecified (3) Bipolar disorder, curr episode mixed, severe, with psychotic features (4) Major neurocognitive disorder (5) Impulse control disorder, unspecified OBDULIA MOLINA MD Aug 07, 2020 21:40
--- NOTE | 2020-08-07 21:52 | PDOC ---
Exam Note: Jassi Note: This note is a late entry for 08/06/2020 covers elements not covered in my initial note. Subjective: The patient was reviewed on telehealth rounds in the evening of 08/06/2020 with Jessie HOLLINGSWORTH. Discussed with nursing staff, reviewed the chart. He slept 7-1/2 hours previous night. Overall he has been doing well. He has been cooperative on the unit. Social service staff are actively trying to find placement for the patient in coordination with the daughter. Review of Systems: No CV, , pulmonary, eye system symptoms on review. Reliability fair. Mental Status Exam: The patient is reasonably oriented. He is pleasant, verbal, interactive. Discussed discharge plans. He states he talked to his daughter yesterday but not today on day since she has a large family she takes care of. Speech is coherent. Abstraction is fair. Computation reasonable. Language function intact. Attention span is fair. Mood and affect is improved. No psychotic symptoms, suicidal or homicidal ideation. Laboratory Data: Reviewed. Impression: Bipolar disorder mixed with psychotic features. Mild cognitive impairment. Impulse control disorder unspecified. Anxiety disorder unspecified. Plan: No change from initial note. Assessment: Vital Signs/I&O: Vital Signs Date Time Temp Pulse Resp B/P (MAP) Pulse Ox O2 Delivery O2 Flow Rate FiO2 08/07/20 16:01 98.9 80 16 136/83 (100) 95 08/07/20 06:27 Room Air I & O 08/06/20 08/06/20 08/07/20 15:00 23:00 07:00 Intake Total 840 ml 840 ml Balance 840 ml 840 ml Current Medications: I have reviewed the current psychotropics carefully including drug interactions. Risk benefit ratio favors no change other than as noted in my dictated progress note. Diagnosis: Problems: (1) Schizoaffective disorder, bipolar type (2) Anxiety disorder, unspecified (3) Bipolar disorder, curr episode mixed, severe, with psychotic features (4) Major neurocognitive disorder (5) Impulse control disorder, unspecified OBDULIA MOLINA MD Aug 07, 2020 21:52
--- NOTE | 2020-08-07 22:03 | PDOC ---
Exam Note: Jassi Note: Please also refer to the separate dictated note~for this date of service dictated separately.~Patient seen individually. Discussed the patient with Nursing staff reviewed the chart.~Reviewed interim history and current functioning. Reviewed vital signs,~Labs/ Radiology~and current medications noted below. Continue current treatment with the changes noted in the dictated addendum note Assessment: Vital Signs/I&O: Vital Signs Date Time Temp Pulse Resp B/P (MAP) Pulse Ox O2 Delivery O2 Flow Rate FiO2 08/07/20 16:01 98.9 80 16 136/83 (100) 95 08/07/20 06:27 Room Air I & O 08/06/20 08/06/20 08/07/20 15:00 23:00 07:00 Intake Total 840 ml 840 ml Balance 840 ml 840 ml Current Medications: I have reviewed the current psychotropics carefully including drug interactions. Risk benefit ratio favors no change other than as noted in my dictated progress note. Diagnosis: Problems: (1) Schizoaffective disorder, bipolar type (2) Anxiety disorder, unspecified (3) Bipolar disorder, curr episode mixed, severe, with psychotic features (4) Major neurocognitive disorder (5) Impulse control disorder, unspecified OBDULIA MOLINA MD Aug 07, 2020 22:03
[2020-08-08 06:05] VITALS: BP 149/83
[2020-08-08 06:37] LABS: BASO # 0.1 x10^3/uL (0.0-0.2); BASO % 1 % (0-3); EOS # 0.4 x10^3/uL (0.0-0.7); EOS % 6 % (0-3); HEMATOCRIT 39.1 % (39.0-53.0); HEMOGLOBIN 13.2 g/dL (13.0-17.5); LYMPH # 1.7 x10^3/uL (1.0-4.8); LYMPH % 27 % (24-48); MEAN CORPUSCULAR HEMOGLOBIN 31 pg (25-35); MEAN CORPUSCULAR HGB CONC 34 g/dL (31-37); MEAN CORPUSCULAR VOLUME 92 fL (79-100); MONO % 15 % (0-9); NEUT # 3.2 x10^3uL (1.8-7.7); NEUT % 51 % (31-73); PLATELET COUNT 278 x10^3/uL (140-400); RED BLOOD COUNT 4.27 x10^6/uL (4.30-5.70); RED CELL DISTRIBUTION WIDTH 13.2 % (11.5-14.5); WHITE BLOOD COUNT 6.3 x10^3/uL (4.0-11.0)
[2020-08-08 06:45] LABS: ALBUMIN 3.2 g/dL (3.4-5.0); CALCIUM 8.8 mg/dL (8.5-10.1); CREATININE 1.1 mg/dL (0.7-1.3); POTASSIUM 3.9 mmol/L (3.5-5.1); TOTAL BILIRUBIN 0.3 mg/dL (0.2-1.0); TOTAL PROTEIN 6.4 g/dL (6.4-8.2)
[2020-08-08] MEDS: CALCIUM CARBONATE 500 MG TAB.CHEW PO SCH ×3 (07:52→17:02)
[2020-08-08] MEDS: GABAPENTIN 300 MG CAPSULE. PO SCH ×2 (07:52→19:43)
[2020-08-08] MEDS: amLODIPine BESYLATE 10 MG TABLET PO SCH (07:53)
[2020-08-08] MEDS: METOPROLOL SUCC 24HR ER 25 MG TAB.ER.24H. PO SCH (07:53)
[2020-08-08 16:21] VITALS: BP 138/83
[2020-08-08] MEDS: QUEtiapine 25 MG TABLET. PO SCH (19:43)
[2020-08-08] MEDS: traZODone 50 MG TABLET. PO SCH (19:43)
[2020-08-08] MEDS: ATORVASTATIN CALCIUM 10 MG TABLET. PO SCH (19:43)
[2020-08-08] MEDS: CYCLOBENZAPRINE 10 MG TABLET. PO PRN (19:44)
--- NOTE | 2020-08-08 20:41 | PDOC ---
Exam Note: Jassi Note: Please also refer to the separate dictated note~for this date of service dictated separately.~Patient seen individually. Discussed the patient with Nursing staff reviewed the chart.~Reviewed interim history and current functioning. Reviewed vital signs,~Labs/ Radiology~and current medications noted below. Continue current treatment with the changes noted in the dictated addendum note Assessment: Vital Signs/I&O: Vital Signs Date Time Temp Pulse Resp B/P (MAP) Pulse Ox O2 Delivery O2 Flow Rate FiO2 08/08/20 16:21 98.3 81 16 138/83 (101) 95 08/08/20 06:05 Room Air I & O 08/07/20 08/07/20 08/08/20 15:00 23:00 07:00 Intake Total 720 ml 480 ml Balance 720 ml 480 ml Labs: Laboratory Tests Test 08/08/20 06:18 White Blood Count 6.3 x10^3/uL (4.0-11.0) Red Blood Count 4.27 x10^6/uL (4.30-5.70) L Hemoglobin 13.2 g/dL (13.0-17.5) Hematocrit 39.1 % (39.0-53.0) Mean Corpuscular Volume 92 fL (79-100) Mean Corpuscular Hemoglobin 31 pg (25-35) Mean Corpuscular Hemoglobin Concent 34 g/dL (31-37) Red Cell Distribution Width 13.2 % (11.5-14.5) Platelet Count 278 x10^3/uL (140-400) Neutrophils (%) (Auto) 51 % (31-73) Lymphocytes (%) (Auto) 27 % (24-48) Monocytes (%) (Auto) 15 % (0-9) H Eosinophils (%) (Auto) 6 % (0-3) H Basophils (%) (Auto) 1 % (0-3) Neutrophils # (Auto) 3.2 x10^3uL (1.8-7.7) Lymphocytes # (Auto) 1.7 x10^3/uL (1.0-4.8) Monocytes # (Auto) 1.0 x10^3/uL (0.0-1.1) Eosinophils # (Auto) 0.4 x10^3/uL (0.0-0.7) Basophils # (Auto) 0.1 x10^3/uL (0.0-0.2) Sodium Level 141 mmol/L (136-145) Potassium Level 3.9 mmol/L (3.5-5.1) Chloride Level 106 mmol/L (98-107) Carbon Dioxide Level 27 mmol/L (21-32) Anion Gap 8 (6-14) Blood Urea Nitrogen 16 mg/dL (8-26) Creatinine 1.1 mg/dL (0.7-1.3) Estimated GFR (Cockcroft-Gault) 66.0 BUN/Creatinine Ratio 15 (6-20) Glucose Level 100 mg/dL (70-99) H Calcium Level 8.8 mg/dL (8.5-10.1) Total Bilirubin 0.3 mg/dL (0.2-1.0) Aspartate Amino Transferase (AST) 24 U/L (15-37) Alanine Aminotransferase (ALT) 50 U/L (16-63) Alkaline Phosphatase 118 U/L (46-116) H Total Protein 6.4 g/dL (6.4-8.2) Albumin 3.2 g/dL (3.4-5.0) L Albumin/Globulin Ratio 1.0 (1.0-1.7) Current Medications: I have reviewed the current psychotropics carefully including drug interactions. Risk benefit ratio favors no change other than as noted in my dictated progress note. Diagnosis: Problems: (1) Schizoaffective disorder, bipolar type (2) Anxiety disorder, unspecified (3) Bipolar disorder, curr episode mixed, severe, with psychotic features (4) Major neurocognitive disorder (5) Impulse control disorder, unspecified OBDULIA MOLINA MD Aug 08, 2020 20:41
[2020-08-09 06:03] VITALS: BP 121/73
--- NOTE | 2020-08-09 08:08 | PDOC ---
Exam Note: Jassi Note: This note is a late entry for 08/08/2020 covers elements not covered in my initial note. Subjective: The patient was reviewed on telehealth rounds in the evening of 08/08/2020 with Zuleima HOLLINGSWORTH. Discussed with nursing staff, reviewed the chart. He slept 6-1/2 hours previous night. He was pleasant, cooperative, quite animated during the individual telehealth visit. He wanted to discuss discharge plans which we did. Review of Systems: No CV, , pulmonary, eye system symptoms on review. Mental Status Exam: The patient is reasonably oriented. He is pleasant, cooperative, quite animated. Speech is coherent. Abstraction is fair. Computation reasonable. Language function intact. Attention span is fair. Mood and affect is improved. No psychotic symptoms, suicidal or homicidal ideation. Laboratory Data: Reviewed. Impression: Bipolar disorder mixed with psychotic features. Mild cognitive impairment. Impulse control disorder unspecified. Anxiety disorder unspecified. Plan: No change from initial note. Assessment: Vital Signs/I&O: Vital Signs Date Time Temp Pulse Resp B/P (MAP) Pulse Ox O2 Delivery O2 Flow Rate FiO2 08/09/20 06:03 97.7 64 16 121/73 (89) 96 Room Air I & O 08/08/20 08/08/20 08/09/20 14:59 22:59 06:59 Intake Total 760 ml 600 ml Balance 760 ml 600 ml Current Medications: I have reviewed the current psychotropics carefully including drug interactions. Risk benefit ratio favors no change other than as noted in my dictated progress note. Diagnosis: Problems: (1) Schizoaffective disorder, bipolar type (2) Anxiety disorder, unspecified (3) Bipolar disorder, curr episode mixed, severe, with psychotic features (4) Major neurocognitive disorder (5) Impulse control disorder, unspecified OBDULIA MOLINA MD Aug 09, 2020 08:08
[2020-08-09] MEDS: CALCIUM CARBONATE 500 MG TAB.CHEW PO SCH ×3 (09:43→17:24)
[2020-08-09] MEDS: amLODIPine BESYLATE 10 MG TABLET PO SCH (09:43)
[2020-08-09] MEDS: GABAPENTIN 300 MG CAPSULE. PO SCH ×2 (09:43→19:40)
[2020-08-09] MEDS: METOPROLOL SUCC 24HR ER 25 MG TAB.ER.24H. PO SCH (09:44)
[2020-08-09] MEDS: CHOLECALCIFEROL (VITAMIN D3) 50,000 UNIT CAPSULE PO SCH (09:44)
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
[2020-08-09 16:02] VITALS: BP 137/78
[2020-08-09] MEDS: QUEtiapine 25 MG TABLET. PO SCH (19:40)
[2020-08-09] MEDS: ATORVASTATIN CALCIUM 10 MG TABLET. PO SCH (19:40)
[2020-08-09] MEDS: traZODone 50 MG TABLET. PO SCH (19:40)
[2020-08-09] MEDS: CYCLOBENZAPRINE 10 MG TABLET. PO PRN (19:42)
--- NOTE | 2020-08-09 20:59 | PDOC ---
Exam Note: Jassi Note: Please also refer to the separate dictated note~for this date of service dictated separately.~Patient seen individually. Discussed the patient with Nursing staff reviewed the chart.~Reviewed interim history and current functioning. Reviewed vital signs,~Labs/ Radiology~and current medications noted below. Continue current treatment with the changes noted in the dictated addendum note Assessment: Vital Signs/I&O: Vital Signs Date Time Temp Pulse Resp B/P (MAP) Pulse Ox O2 Delivery O2 Flow Rate FiO2 08/09/20 16:02 97.7 86 16 137/78 (97) 95 08/09/20 06:03 Room Air I & O 08/08/20 08/08/20 08/09/20 15:00 23:00 07:00 Intake Total 760 ml 600 ml Balance 760 ml 600 ml Current Medications: I have reviewed the current psychotropics carefully including drug interactions. Risk benefit ratio favors no change other than as noted in my dictated progress note. Diagnosis: Problems: (1) Schizoaffective disorder, bipolar type (2) Anxiety disorder, unspecified (3) Bipolar disorder, curr episode mixed, severe, with psychotic features (4) Major neurocognitive disorder (5) Impulse control disorder, unspecified OBDULIA MOLINA MD Aug 09, 2020 20:59
[2020-08-10 06:40] VITALS: BP 131/79
--- NOTE | 2020-08-10 07:36 | PDOC ---
Exam Note: Jassi Note: This note is a late entry for 08/09/2020 covers elements not covered in my initial note. Subjective: The patient was reviewed on telehealth rounds in the morning of 08/09/2020 for a treatment team meeting with Samra Hsu and Shirin (social media sr strategy manager), Rosana, activity therapy and Niya HOLLINGSWORTH. Discussed with nursing staff, reviewed the chart. He slept 8 hours previous night. Overall the patient has been doing better. He has not been agitated, not paranoid. He has some short-term memory deficits but generally compensates well for this. He takes Flexeril at night for muscle spasm and then sleeps reasonably well. Review of Systems: No CV, , pulmonary, eye system symptoms on review. Mental Status Exam: The patient is reasonably oriented. He is quite animated, verbal, had some questions about discharge plans which we addressed and also addressed it at treatment team meeting. Speech is coherent. Abstraction is fair. Computation reasonable. Language function intact. Attention span is fair. Mood and affect is improved. No psychotic symptoms, suicidal or homicidal ideation. Clinically he has been ready for discharge for quite some time. Placement is being sought actively by social service staff. Laboratory Data: Reviewed. Impression: Bipolar disorder mixed with psychotic features. Mild cognitive impairment. Impulse control disorder unspecified. Anxiety disorder unspecified. Plan: No change from initial note. Assessment: Vital Signs/I&O: Vital Signs Date Time Temp Pulse Resp B/P (MAP) Pulse Ox O2 Delivery O2 Flow Rate FiO2 08/10/20 06:40 97.7 62 20 131/79 (96) 96 08/09/20 06:03 Room Air I & O 08/09/20 08/09/20 08/10/20 15:00 23:00 07:00 Intake Total 720 ml 600 ml Balance 720 ml 600 ml Current Medications: I have reviewed the current psychotropics carefully including drug interactions. Risk benefit ratio favors no change other than as noted in my dictated progress note. Diagnosis: Problems: (1) Schizoaffective disorder, bipolar type (2) Anxiety disorder, unspecified (3) Bipolar disorder, curr episode mixed, severe, with psychotic features (4) Major neurocognitive disorder (5) Impulse control disorder, unspecified OBDULIA MOLINA MD Aug 10, 2020 07:36
[2020-08-10] MEDS: CALCIUM CARBONATE 500 MG TAB.CHEW PO SCH ×3 (08:07→17:24)
[2020-08-10] MEDS: GABAPENTIN 300 MG CAPSULE. PO SCH ×2 (08:08→19:33)
[2020-08-10] MEDS: METOPROLOL SUCC 24HR ER 25 MG TAB.ER.24H. PO SCH (08:08)
[2020-08-10] MEDS: amLODIPine BESYLATE 10 MG TABLET PO SCH (08:20)
[2020-08-10 15:17] VITALS: BP 131/74
[2020-08-10] MEDS: ATORVASTATIN CALCIUM 10 MG TABLET. PO SCH (19:33)
[2020-08-10] MEDS: traZODone 50 MG TABLET. PO SCH (19:33)
[2020-08-10] MEDS: QUEtiapine 25 MG TABLET. PO SCH (19:33)
--- NOTE | 2020-08-10 21:07 | PDOC ---
Exam Note: Jassi Note: Please also refer to the separate dictated note~for this date of service dictated separately.~Patient seen individually. Discussed the patient with Nursing staff reviewed the chart.~Reviewed interim history and current functioning. Reviewed vital signs,~Labs/ Radiology~and current medications noted below. Continue current treatment with the changes noted in the dictated addendum note Assessment: Vital Signs/I&O: Vital Signs Date Time Temp Pulse Resp B/P (MAP) Pulse Ox O2 Delivery O2 Flow Rate FiO2 08/10/20 15:17 98.7 86 16 131/74 (93) 95 08/09/20 06:03 Room Air I & O 08/09/20 08/09/20 08/10/20 15:00 23:00 07:00 Intake Total 720 ml 600 ml Balance 720 ml 600 ml Current Medications: I have reviewed the current psychotropics carefully including drug interactions. Risk benefit ratio favors no change other than as noted in my dictated progress note. Diagnosis: Problems: (1) Schizoaffective disorder, bipolar type (2) Anxiety disorder, unspecified (3) Bipolar disorder, curr episode mixed, severe, with psychotic features (4) Major neurocognitive disorder (5) Impulse control disorder, unspecified OBDULIA MOLINA MD Aug 10, 2020 21:07
[2020-08-11 05:50] VITALS: BP 145/91
[2020-08-11] MEDS: CALCIUM CARBONATE 500 MG TAB.CHEW PO SCH ×3 (09:21→17:28)
[2020-08-11] MEDS: GABAPENTIN 300 MG CAPSULE. PO SCH ×2 (09:21→20:20)
[2020-08-11] MEDS: amLODIPine BESYLATE 10 MG TABLET PO SCH (09:21)
[2020-08-11] MEDS: METOPROLOL SUCC 24HR ER 25 MG TAB.ER.24H. PO SCH (09:22)
[2020-08-11 15:56] VITALS: BP 133/79
[2020-08-11 20:10] VITALS: BP 191/90
[2020-08-11] MEDS: ATORVASTATIN CALCIUM 10 MG TABLET. PO SCH (20:20)
[2020-08-11] MEDS: traZODone 50 MG TABLET. PO SCH (20:20)
[2020-08-11] MEDS: QUEtiapine 25 MG TABLET. PO SCH (20:20)
[2020-08-11] MEDS: CYCLOBENZAPRINE 10 MG TABLET. PO PRN (20:25)
--- NOTE | 2020-08-11 20:50 | PDOC ---
Exam Note: Jassi Note: This note is a late entry for 08/10/2020 covers elements not covered in my initial note. Subjective: The patient was reviewed on telehealth rounds in the evening of 08/10/2020 with Jessie HOLLINGSWORTH. Discussed with nursing staff, reviewed the chart. He slept 5-3/4 hours previous night. Overall the patient is doing reasonably well. He is cooperative on the unit, has many questions about discharge plans. I addressed with him. He often complains of pain in his legs and therefore slept somewhat poorly last evening. Review of Systems: No CV, , pulmonary, eye system symptoms on review. Mental Status Exam: The patient is reasonably oriented. He is pleasant, verbal, interactive, smiling as I met with him. Speech is coherent. Abstraction is fair. Computation reasonable. Language function intact. Attention span is fair. Mood and affect is improved. No psychotic symptoms, suicidal or homicidal ideation. Laboratory Data: Reviewed. Impression: Bipolar disorder mixed with psychotic features. Mild cognitive impairment. Impulse control disorder unspecified. Anxiety disorder unspecified. Plan: No change from initial note. Assessment: Vital Signs/I&O: Vital Signs Date Time Temp Pulse Resp B/P (MAP) Pulse Ox O2 Delivery O2 Flow Rate FiO2 08/11/20 15:56 98.3 81 16 133/79 (97) 97 08/11/20 05:50 Room Air I & O 08/10/20 08/10/20 08/11/20 15:00 23:00 07:00 Intake Total 1080 ml 360 ml Balance 1080 ml 360 ml Current Medications: I have reviewed the current psychotropics carefully including drug interactions. Risk benefit ratio favors no change other than as noted in my dictated progress note. Diagnosis: Problems: (1) Schizoaffective disorder, bipolar type (2) Anxiety disorder, unspecified (3) Bipolar disorder, curr episode mixed, severe, with psychotic features (4) Major neurocognitive disorder (5) Impulse control disorder, unspecified OBDULIA MOLINA MD Aug 11, 2020 20:50
--- NOTE | 2020-08-11 21:16 | PDOC ---
Exam Note: Jassi Note: Please also refer to the separate dictated note~for this date of service dictated separately.~Patient seen individually. Discussed the patient with Nursing staff reviewed the chart.~Reviewed interim history and current functioning. Reviewed vital signs,~Labs/ Radiology~and current medications noted below. Continue current treatment with the changes noted in the dictated addendum note Assessment: Vital Signs/I&O: Vital Signs Date Time Temp Pulse Resp B/P (MAP) Pulse Ox O2 Delivery O2 Flow Rate FiO2 08/11/20 15:56 98.3 81 16 133/79 (97) 97 08/11/20 05:50 Room Air I & O 08/10/20 08/10/20 08/11/20 14:59 22:59 06:59 Intake Total 1080 ml 360 ml Balance 1080 ml 360 ml Current Medications: I have reviewed the current psychotropics carefully including drug interactions. Risk benefit ratio favors no change other than as noted in my dictated progress note. Diagnosis: Problems: (1) Schizoaffective disorder, bipolar type (2) Anxiety disorder, unspecified (3) Bipolar disorder, curr episode mixed, severe, with psychotic features (4) Major neurocognitive disorder (5) Impulse control disorder, unspecified OBDULIA MOLINA MD Aug 11, 2020 21:16
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
[2020-08-11] MEDS: ACETAMINOPHEN 325 MG TABLET PO PRN (21:39)
[2020-08-12 06:35] VITALS: BP 172/86
[2020-08-12] MEDS: GABAPENTIN 300 MG CAPSULE. PO SCH ×2 (08:16→19:47)
[2020-08-12] MEDS: CALCIUM CARBONATE 500 MG TAB.CHEW PO SCH ×3 (08:16→17:53)
[2020-08-12] MEDS: ACETAMINOPHEN 325 MG TABLET PO PRN ×3 (08:16→21:31)
[2020-08-12] MEDS: METOPROLOL SUCC 24HR ER 25 MG TAB.ER.24H. PO SCH (08:16)
[2020-08-12] MEDS: amLODIPine BESYLATE 10 MG TABLET PO SCH (08:17)
[2020-08-12 15:37] VITALS: BP 137/83
[2020-08-12] MEDS: CYCLOBENZAPRINE 10 MG TABLET. PO PRN (19:47)
[2020-08-12] MEDS: traZODone 50 MG TABLET. PO SCH (19:47)
[2020-08-12] MEDS: QUEtiapine 25 MG TABLET. PO SCH (19:47)
[2020-08-12] MEDS: ATORVASTATIN CALCIUM 10 MG TABLET. PO SCH (19:47)
--- NOTE | 2020-08-12 20:50 | PDOC ---
Exam Note: Jassi Note: Please also refer to the separate dictated note~for this date of service dictated separately.~Patient seen individually. Discussed the patient with Nursing staff reviewed the chart.~Reviewed interim history and current functioning. Reviewed vital signs,~Labs/ Radiology~and current medications noted below. Continue current treatment with the changes noted in the dictated addendum note Assessment: Vital Signs/I&O: VS - Last 72 Hours, by Label Date Time Temp Pulse Resp B/P (MAP) Pulse Ox O2 Delivery O2 Flow Rate FiO2 08/12/20 15:37 97.7 94 18 137/83 (101) 97 Room Air 08/12/20 08:17 95 172/86 08/12/20 08:16 95 172/86 08/12/20 06:35 97.8 95 18 172/86 (114) 97 Room Air 08/11/20 20:10 138 191/90 (123) 96 Room Air 08/11/20 15:56 98.3 81 16 133/79 (97) 97 08/11/20 09:22 66 145/91 08/11/20 09:21 66 145/91 08/11/20 05:50 98.1 66 18 145/91 (109) 98 Room Air 08/10/20 15:17 98.7 86 16 131/74 (93) 95 08/10/20 08:20 62 131/79 08/10/20 08:08 62 131/79 08/10/20 06:40 97.7 62 20 131/79 (96) 96 Current Medications Medications (Trade) Dose Ordered Sig/Vicente Route PRN Reason Start Time Stop Time Status Last Admin Dose Admin Acetaminophen (Tylenol) 650 mg PRN Q6HRS PRN PO MILD PAIN / TEMP > 100.3'F 06/05/20 16:45 08/12/20 15:26 Multi-Ingredient Ointment (Analgesic [place]) 1 martina PRN QID PRN TP MUSCLE PAIN 06/05/20 16:45 Cancel Al Hydroxide/Mg Hydroxide (Mylanta Plus Xs) 15 ml PRN AFTMEALHC PRN PO DYSPEPSIA 06/05/20 16:45 06/06/20 17:08 DC Magnesium Hydroxide (Milk Of Magnesia) 2,400 mg PRN QHS PRN PO CONSTIPATION 06/05/20 16:45 Acetaminophen (Tylenol) 1,000 mg BID PO 06/05/20 21:00 06/25/20 12:00 DC 06/23/20 09:08 Amlodipine Besylate (Norvasc) 5 mg DAILY PO 06/06/20 09:00 08/12/20 08:17 Cetirizine HCl (ZyrTEC) 10 mg PRN DAILY PRN PO ALLERGIES 06/05/20 18:15 07/29/20 12:21 Cyclobenzaprine HCl (Flexeril) 10 mg PRN QHS PRN PO MUSCLE SPASMS 06/05/20 18:15 08/12/20 19:47 Diclofenac Sodium (Voltaren) 1 martina PRN Q6HRS PRN TP MUSCLE SKELETAL PAIN 06/05/20 18:15 07/22/20 10:06 Divalproex Sodium (Depakote Er) 1,000 mg QHS PO 06/05/20 21:00 06/07/20 11:57 DC 06/06/20 20:47 Al Hydroxide/Mg Hydroxide (Mylanta Plus Xs) 15 ml PRN AFTMEALHC PRN PO DYSPEPSIA 06/05/20 18:15 Metoprolol Succinate (Toprol Xl) 25 mg DAILY PO 06/06/20 09:00 08/12/20 08:16 Trazodone HCl (Desyrel) 50 mg QHS PO 06/05/20 21:00 08/12/20 19:47 Calcium Carbonate/ Glycine (Tums) 500 mg TIDAFTMEAL PO 06/05/20 18:45 08/12/20 17:53 Magnesium Hydroxide (Milk Of Magnesia) 2,400 mg PRN QHS PRN PO CONSTIPATION 06/05/20 18:45 06/06/20 17:08 DC Multi-Ingredient Ointment (Analgesic [place]) 1 martina PRN QID PRN TP MUSCLE PAIN 06/05/20 18:45 06/06/20 17:09 DC Divalproex Sodium (Depakote Er) 1,250 mg QHS PO 06/07/20 21:00 06/15/20 19:47 DC 06/14/20 20:16 Vitamin D (Vitamin D3) 50,000 unit WEEKLY PO 06/07/20 17:15 08/09/20 09:44 Atorvastatin Calcium (Lipitor) 10 mg QHS PO 06/07/20 21:00 08/12/20 19:47 Quetiapine Fumarate (SEROquel) 25 mg QHS PO 06/09/20 21:00 08/12/20 19:47 Divalproex Sodium (Depakote Er) 250 mg QHS PO 06/15/20 21:00 06/21/20 17:39 DC 06/20/20 20:20 Divalproex Sodium (Depakote Er) 1,000 mg QHS PO 06/15/20 21:00 06/21/20 17:39 DC 06/20/20 20:21 Gabapentin (Neurontin) 300 mg BID PO 06/21/20 21:00 08/12/20 19:47 Vital Signs Date Time Temp Pulse Resp B/P (MAP) Pulse Ox O2 Delivery O2 Flow Rate FiO2 08/12/20 15:37 97.7 94 18 137/83 (101) 97 Room Air I & O 08/11/20 08/11/20 08/12/20 15:00 23:00 07:00 Intake Total 720 ml 600 ml Balance 720 ml 600 ml Current Medications: Meds: Current Medications Medications (Trade) Dose Ordered Sig/Vicente Route PRN Reason Start Time Stop Time Status Last Admin Dose Admin Acetaminophen (Tylenol) 650 mg PRN Q6HRS PRN PO MILD PAIN / TEMP > 100.3'F 06/05/20 16:45 08/12/20 15:26 Multi-Ingredient Ointment (Analgesic [place]) 1 martina PRN QID PRN TP MUSCLE PAIN 06/05/20 16:45 Cancel Al Hydroxide/Mg Hydroxide (Mylanta Plus Xs) 15 ml PRN AFTMEALHC PRN PO DYSPEPSIA 06/05/20 16:45 06/06/20 17:08 DC Magnesium Hydroxide (Milk Of Magnesia) 2,400 mg PRN QHS PRN PO CONSTIPATION 06/05/20 16:45 Acetaminophen (Tylenol) 1,000 mg BID PO 06/05/20 21:00 06/25/20 12:00 DC 06/23/20 09:08 Amlodipine Besylate (Norvasc) 5 mg DAILY PO 06/06/20 09:00 08/12/20 08:17 Cetirizine HCl (ZyrTEC) 10 mg PRN DAILY PRN PO ALLERGIES 06/05/20 18:15 12/17/20 12:21 Cyclobenzaprine HCl (Flexeril) 10 mg PRN QHS PRN PO MUSCLE SPASMS 06/05/20 18:15 08/12/20 19:47 Diclofenac Sodium (Voltaren) 1 martina PRN Q6HRS PRN TP MUSCLE SKELETAL PAIN 06/05/20 18:15 07/22/20 10:06 Divalproex Sodium (Depakote Er) 1,000 mg QHS PO 06/05/20 21:00 06/07/20 11:57 DC 06/06/20 20:47 Al Hydroxide/Mg Hydroxide (Mylanta Plus Xs) 15 ml PRN AFTMEALHC PRN PO DYSPEPSIA 06/05/20 18:15 Metoprolol Succinate (Toprol Xl) 25 mg DAILY PO 06/06/20 09:00 08/12/20 08:16 Trazodone HCl (Desyrel) 50 mg QHS PO 06/05/20 21:00 08/12/20 19:47 Calcium Carbonate/ Glycine (Tums) 500 mg TIDAFTMEAL PO 06/05/20 18:45 08/12/20 17:53 Magnesium Hydroxide (Milk Of Magnesia) 2,400 mg PRN QHS PRN PO CONSTIPATION 06/05/20 18:45 06/06/20 17:08 DC Multi-Ingredient Ointment (Analgesic [place]) 1 martina PRN QID PRN TP MUSCLE PAIN 06/05/20 18:45 06/06/20 17:09 DC Divalproex Sodium (Depakote Er) 1,250 mg QHS PO 06/07/20 21:00 06/15/20 19:47 DC 06/14/20 20:16 Vitamin D (Vitamin D3) 50,000 unit WEEKLY PO 06/07/20 17:15 08/09/20 09:44 Atorvastatin Calcium (Lipitor) 10 mg QHS PO 06/07/20 21:00 08/12/20 19:47 Quetiapine Fumarate (SEROquel) 25 mg QHS PO 06/09/20 21:00 08/12/20 19:47 Divalproex Sodium (Depakote Er) 250 mg QHS PO 06/15/20 21:00 06/21/20 17:39 DC 06/20/20 20:20 Divalproex Sodium (Depakote Er) 1,000 mg QHS PO 06/15/20 21:00 06/21/20 17:39 DC 06/20/20 20:21 Gabapentin (Neurontin) 300 mg BID PO 06/21/20 21:00 08/12/20 19:47 I have reviewed the current psychotropics carefully including drug interactions. Risk benefit ratio favors no change other than as noted in my dictated progress note. Diagnosis: Problems: (1) Schizoaffective disorder, bipolar type (2) Anxiety disorder, unspecified (3) Bipolar disorder, curr episode mixed, severe, with psychotic features (4) Major neurocognitive disorder (5) Impulse control disorder, unspecified OBDULIA MOLINA MD Aug 12, 2020 20:50
[2020-08-13] MEDS: ACETAMINOPHEN 325 MG TABLET PO PRN ×2 (03:48→08:26)
[2020-08-13 06:27] VITALS: BP 147/83
[2020-08-13] MEDS: CALCIUM CARBONATE 500 MG TAB.CHEW PO SCH ×3 (08:19→18:00)
[2020-08-13] MEDS: GABAPENTIN 300 MG CAPSULE. PO SCH ×2 (08:19→20:16)
[2020-08-13] MEDS: METOPROLOL SUCC 24HR ER 25 MG TAB.ER.24H. PO SCH (08:19)
[2020-08-13] MEDS: amLODIPine BESYLATE 10 MG TABLET PO SCH (08:20)
[2020-08-13 15:01] VITALS: BP 138/79
[2020-08-13] MEDS: ATORVASTATIN CALCIUM 10 MG TABLET. PO SCH (20:16)
[2020-08-13] MEDS: traZODone 50 MG TABLET. PO SCH (20:16)
[2020-08-13] MEDS: QUEtiapine 25 MG TABLET. PO SCH (20:16)
[2020-08-13] MEDS: CYCLOBENZAPRINE 10 MG TABLET. PO PRN (20:17)
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
--- NOTE | 2020-08-13 21:55 | PDOC ---
Exam Note: Jassi Note: Please also refer to the separate dictated note~for this date of service dictated separately.~Patient seen individually. Discussed the patient with Nursing staff reviewed the chart.~Reviewed interim history and current functioning. Reviewed vital signs,~Labs/ Radiology~and current medications noted below. Continue current treatment with the changes noted in the dictated addendum note Assessment: Vital Signs/I&O: Vital Signs Date Time Temp Pulse Resp B/P (MAP) Pulse Ox O2 Delivery O2 Flow Rate FiO2 08/13/20 15:01 98.6 95 17 138/79 (98) 94 08/13/20 06:27 Room Air I & O 08/12/20 08/12/20 08/13/20 15:00 23:00 07:00 Intake Total 960 ml 120 ml Balance 960 ml 120 ml Current Medications: Meds: Current Medications Medications (Trade) Dose Ordered Sig/Vicente Route PRN Reason Start Time Stop Time Status Last Admin Dose Admin Acetaminophen (Tylenol) 650 mg PRN Q6HRS PRN PO MILD PAIN / TEMP > 100.3'F 06/05/20 16:45 08/13/20 03:48 Multi-Ingredient Ointment (Analgesic [place]) 1 martina PRN QID PRN TP MUSCLE PAIN 06/05/20 16:45 Cancel Al Hydroxide/Mg Hydroxide (Mylanta Plus Xs) 15 ml PRN AFTMEALHC PRN PO DYSPEPSIA 06/05/20 16:45 06/06/20 17:08 DC Magnesium Hydroxide (Milk Of Magnesia) 2,400 mg PRN QHS PRN PO CONSTIPATION 06/05/20 16:45 Acetaminophen (Tylenol) 1,000 mg BID PO 06/05/20 21:00 06/25/20 12:00 DC 06/23/20 09:08 Amlodipine Besylate (Norvasc) 5 mg DAILY PO 06/06/20 09:00 08/13/20 08:20 Cetirizine HCl (ZyrTEC) 10 mg PRN DAILY PRN PO ALLERGIES 06/05/20 18:15 20 12:21 Cyclobenzaprine HCl (Flexeril) 10 mg PRN QHS PRN PO MUSCLE SPASMS 06/05/20 18:15 08/13/20 20:17 Diclofenac Sodium (Voltaren) 1 martina PRN Q6HRS PRN TP MUSCLE SKELETAL PAIN 06/05/20 18:15 07/22/20 10:06 Divalproex Sodium (Depakote Er) 1,000 mg QHS PO 06/05/20 21:00 06/07/20 11:57 DC 06/06/20 20:47 Al Hydroxide/Mg Hydroxide (Mylanta Plus Xs) 15 ml PRN AFTMEALHC PRN PO DYSPEPSIA 06/05/20 18:15 Metoprolol Succinate (Toprol Xl) 25 mg DAILY PO 06/06/20 09:00 08/13/20 08:19 Trazodone HCl (Desyrel) 50 mg QHS PO 06/05/20 21:00 08/13/20 20:16 Calcium Carbonate/ Glycine (Tums) 500 mg TIDAFTMEAL PO 06/05/20 18:45 08/13/20 18:00 Magnesium Hydroxide (Milk Of Magnesia) 2,400 mg PRN QHS PRN PO CONSTIPATION 06/05/20 18:45 06/06/20 17:08 DC Multi-Ingredient Ointment (Analgesic [place]) 1 martina PRN QID PRN TP MUSCLE PAIN 06/05/20 18:45 06/06/20 17:09 DC Divalproex Sodium (Depakote Er) 1,250 mg QHS PO 06/07/20 21:00 06/15/20 19:47 DC 06/14/20 20:16 Vitamin D (Vitamin D3) 50,000 unit WEEKLY PO 06/07/20 17:15 08/09/20 09:44 Atorvastatin Calcium (Lipitor) 10 mg QHS PO 06/07/20 21:00 08/13/20 20:16 Quetiapine Fumarate (SEROquel) 25 mg QHS PO 06/09/20 21:00 08/13/20 20:16 Divalproex Sodium (Depakote Er) 250 mg QHS PO 06/15/20 21:00 06/21/20 17:39 DC 06/20/20 20:20 Divalproex Sodium (Depakote Er) 1,000 mg QHS PO 06/15/20 21:00 06/21/20 17:39 DC 06/20/20 20:21 Gabapentin (Neurontin) 300 mg BID PO 11/9/20 21:00 08/13/20 20:16 I have reviewed the current psychotropics carefully including drug interactions. Risk benefit ratio favors no change other than as noted in my dictated progress note. Diagnosis: Problems: (1) Schizoaffective disorder, bipolar type (2) Anxiety disorder, unspecified (3) Bipolar disorder, curr episode mixed, severe, with psychotic features (4) Major neurocognitive disorder (5) Impulse control disorder, unspecified OBDULIA MOLINA MD Aug 13, 2020 21:55
[2020-08-14 05:56] VITALS: BP 134/66
[2020-08-14] MEDS: CALCIUM CARBONATE 500 MG TAB.CHEW PO SCH ×3 (08:09→17:32)
[2020-08-14] MEDS: amLODIPine BESYLATE 10 MG TABLET PO SCH (08:09)
[2020-08-14] MEDS: METOPROLOL SUCC 24HR ER 25 MG TAB.ER.24H. PO SCH (08:10)
[2020-08-14] MEDS: GABAPENTIN 300 MG CAPSULE. PO SCH ×2 (08:10→19:57)
[2020-08-14] MEDS: ACETAMINOPHEN 325 MG TABLET PO PRN ×2 (08:54→20:01)
[2020-08-14 15:00] VITALS: BP 147/73
[2020-08-14] MEDS: ATORVASTATIN CALCIUM 10 MG TABLET. PO SCH (19:57)
[2020-08-14] MEDS: traZODone 50 MG TABLET. PO SCH (19:57)
[2020-08-14] MEDS: QUEtiapine 25 MG TABLET. PO SCH (19:57)
[2020-08-14] MEDS: CYCLOBENZAPRINE 10 MG TABLET. PO PRN (20:01)
--- NOTE | 2020-08-14 21:08 | PDOC ---
Exam Note: Jassi Note: Please also refer to the separate dictated note~for this date of service dictated separately.~Patient seen individually. Discussed the patient with Nursing staff reviewed the chart.~Reviewed interim history and current functioning. Reviewed vital signs,~Labs/ Radiology~and current medications noted below. Continue current treatment with the changes noted in the dictated addendum note Assessment: Vital Signs/I&O: Vital Signs Date Time Temp Pulse Resp B/P (MAP) Pulse Ox O2 Delivery O2 Flow Rate FiO2 08/14/20 15:00 97.8 96 20 147/73 (97) 97 Room Air I & O 08/13/20 08/13/20 08/14/20 15:00 23:00 07:00 Intake Total 810 ml 600 ml Balance 810 ml 600 ml Current Medications: Meds: Current Medications Medications (Trade) Dose Ordered Sig/Vicente Route PRN Reason Start Time Stop Time Status Last Admin Dose Admin Acetaminophen (Tylenol) 650 mg PRN Q6HRS PRN PO MILD PAIN / TEMP > 100.3'F 06/05/20 16:45 08/14/20 20:01 Multi-Ingredient Ointment (Analgesic [place]) 1 martina PRN QID PRN TP MUSCLE PAIN 06/05/20 16:45 Cancel Al Hydroxide/Mg Hydroxide (Mylanta Plus Xs) 15 ml PRN AFTMEALHC PRN PO DYSPEPSIA 06/05/20 16:45 06/06/20 17:08 DC Magnesium Hydroxide (Milk Of Magnesia) 2,400 mg PRN QHS PRN PO CONSTIPATION 06/05/20 16:45 Acetaminophen (Tylenol) 1,000 mg BID PO 06/05/20 21:00 06/25/20 12:00 DC 06/23/20 09:08 Amlodipine Besylate (Norvasc) 5 mg DAILY PO 06/06/20 09:00 08/14/20 08:09 Cetirizine HCl (ZyrTEC) 10 mg PRN DAILY PRN PO ALLERGIES 06/05/20 18:15 07/29/20 12:21 Cyclobenzaprine HCl (Flexeril) 10 mg PRN QHS PRN PO MUSCLE SPASMS 06/05/20 18:15 08/14/20 20:01 Diclofenac Sodium (Voltaren) 1 martina PRN Q6HRS PRN TP MUSCLE SKELETAL PAIN 06/05/20 18:15 07/22/20 10:06 Divalproex Sodium (Depakote Er) 1,000 mg QHS PO 06/05/20 21:00 06/07/20 11:57 DC 06/06/20 20:47 Al Hydroxide/Mg Hydroxide (Mylanta Plus Xs) 15 ml PRN AFTMEALHC PRN PO DYSPEPSIA 06/05/20 18:15 Metoprolol Succinate (Toprol Xl) 25 mg DAILY PO 06/06/20 09:00 08/14/20 08:10 Trazodone HCl (Desyrel) 50 mg QHS PO 06/05/20 21:00 08/14/20 19:57 Calcium Carbonate/ Glycine (Tums) 500 mg TIDAFTMEAL PO 06/05/20 18:45 08/14/20 17:32 Magnesium Hydroxide (Milk Of Magnesia) 2,400 mg PRN QHS PRN PO CONSTIPATION 06/05/20 18:45 06/06/20 17:08 DC Multi-Ingredient Ointment (Analgesic [place]) 1 martina PRN QID PRN TP MUSCLE PAIN 06/05/20 18:45 06/06/20 17:09 DC Divalproex Sodium (Depakote Er) 1,250 mg QHS PO 06/07/20 21:00 06/15/20 19:47 DC 06/14/20 20:16 Vitamin D (Vitamin D3) 50,000 unit WEEKLY PO 06/07/20 17:15 08/09/20 09:44 Atorvastatin Calcium (Lipitor) 10 mg QHS PO 06/07/20 21:00 08/14/20 19:57 Quetiapine Fumarate (SEROquel) 25 mg QHS PO 06/09/20 21:00 08/14/20 19:57 Divalproex Sodium (Depakote Er) 250 mg QHS PO 06/15/20 21:00 06/21/20 17:39 DC 06/20/20 20:20 Divalproex Sodium (Depakote Er) 1,000 mg QHS PO 06/15/20 21:00 06/21/20 17:39 DC 06/20/20 20:21 Gabapentin (Neurontin) 300 mg BID PO 06/21/20 21:00 1/2/21 19:57 I have reviewed the current psychotropics carefully including drug interactions. Risk benefit ratio favors no change other than as noted in my dictated progress note. Diagnosis: Problems: (1) Schizoaffective disorder, bipolar type (2) Anxiety disorder, unspecified (3) Bipolar disorder, curr episode mixed, severe, with psychotic features (4) Major neurocognitive disorder (5) Impulse control disorder, unspecified OBDULIA MOLINA MD Aug 14, 2020 21:08
--- NOTE | 2020-08-14 23:15 | PN ---
DATE: 08/14/2020 PSYCHIATRIC PROGRESS NOTE This note covers elements not covered in my initial note 1. SUBJECTIVE: I met with the patient evening of 08/14/2020 on telehealth rounds. Discussed with DARRICK Dewey. The patient slept 6-1/4 hours previous night. He has been a little more irritable, demanding at times, and this has been evident for the past 48 hours or so. There is no clear correlation with the fall, but seems to have started around that time. CT head was unremarkable. REVIEW OF SYSTEMS: No CV, , pulmonary, eye, ENT system symptoms on review. MENTAL STATUS EXAM: Oriented to himself and situation. Speech is coherent, has some latency. Abstraction fair, computation impaired, language function intact, attention span short. Mood and affect somewhat withdrawn, little anxious, irritable at times, but improved. LABORATORY DATA: Reviewed. IMPRESSION: Bipolar 1 disorder mixed with psychotic features, anxiety disorder, unspecified mild cognitive impairment. Rest unchanged. PLAN: He does complain of some back muscle spasms, but knee pain is better. Continue psychotropics mentioned in my initial note. Social service staff is working with his daughter for finding an appropriate placement as soon as possible. OBDULIA MOLINA MD DR: CHANNING/eileen JOB#: [id number] / [id number]
[2020-08-15 05:45] VITALS: BP 128/74
[2020-08-15] MEDS: amLODIPine BESYLATE 10 MG TABLET PO SCH (07:33)
[2020-08-15] MEDS: METOPROLOL SUCC 24HR ER 25 MG TAB.ER.24H. PO SCH (07:33)
[2020-08-15] MEDS: GABAPENTIN 300 MG CAPSULE. PO SCH ×2 (07:33→20:55)
[2020-08-15] MEDS: CALCIUM CARBONATE 500 MG TAB.CHEW PO SCH ×3 (07:33→16:51)
[2020-08-15] MEDS: ACETAMINOPHEN 325 MG TABLET PO PRN ×3 (08:37→20:56)
[2020-08-15 09:34] LABS: BASO # 0.1 x10^3/uL (0.0-0.2); BASO % 1 % (0-3); EOS # 0.3 x10^3/uL (0.0-0.7); EOS % 3 % (0-3); HEMATOCRIT 40.8 % (39.0-53.0); HEMOGLOBIN 13.9 g/dL (13.0-17.5); LYMPH % 13 % (24-48); MEAN CORPUSCULAR HEMOGLOBIN 31 pg (25-35); MEAN CORPUSCULAR HGB CONC 34 g/dL (31-37); MEAN CORPUSCULAR VOLUME 91 fL (79-100); MONO # 0.7 x10^3/uL (0.0-1.1); MONO % 9 % (0-9); NEUT # 5.8 x10^3uL (1.8-7.7); NEUT % 73 % (31-73); PLATELET COUNT 287 x10^3/uL (140-400); RED CELL DISTRIBUTION WIDTH 13.4 % (11.5-14.5); WHITE BLOOD COUNT 7.9 x10^3/uL (4.0-11.0)
[2020-08-15 09:47] LABS: ALBUMIN 3.5 g/dL (3.4-5.0); ALBUMIN/GLOBULIN RATIO 0.9 (1.0-1.7); GFR 73.7; POTASSIUM 3.7 mmol/L (3.5-5.1); TOTAL BILIRUBIN 0.5 mg/dL (0.2-1.0); TOTAL PROTEIN 7.4 g/dL (6.4-8.2)
[2020-08-15 15:01] VITALS: BP 133/78
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
[2020-08-15] MEDS: QUEtiapine 25 MG TABLET. PO SCH (20:55)
[2020-08-15] MEDS: traZODone 50 MG TABLET. PO SCH (20:55)
[2020-08-15] MEDS: CYCLOBENZAPRINE 10 MG TABLET. PO PRN (20:55)
[2020-08-15] MEDS: ATORVASTATIN CALCIUM 10 MG TABLET. PO SCH (20:55)
--- NOTE | 2020-08-15 21:13 | PDOC ---
Exam Note: Jassi Note: Please also refer to the separate dictated note~for this date of service dictated separately.~Patient seen individually. Discussed the patient with Nursing staff reviewed the chart.~Reviewed interim history and current functioning. Reviewed vital signs,~Labs/ Radiology~and current medications noted below. Continue current treatment with the changes noted in the dictated addendum note Assessment: Vital Signs/I&O: Vital Signs Date Time Temp Pulse Resp B/P (MAP) Pulse Ox O2 Delivery O2 Flow Rate FiO2 08/15/20 15:01 98.5 84 17 133/78 (96) 93 08/14/20 15:00 Room Air I & O 08/14/20 08/14/20 08/15/20 14:59 22:59 06:59 Intake Total 720 ml 240 ml Balance 720 ml 240 ml Labs: Laboratory Tests Test 08/15/20 08:50 White Blood Count 7.9 x10^3/uL (4.0-11.0) Red Blood Count 4.50 x10^6/uL (4.30-5.70) Hemoglobin 13.9 g/dL (13.0-17.5) Hematocrit 40.8 % (39.0-53.0) Mean Corpuscular Volume 91 fL (79-100) Mean Corpuscular Hemoglobin 31 pg (25-35) Mean Corpuscular Hemoglobin Concent 34 g/dL (31-37) Red Cell Distribution Width 13.4 % (11.5-14.5) Platelet Count 287 x10^3/uL (140-400) Neutrophils (%) (Auto) 73 % (31-73) Lymphocytes (%) (Auto) 13 % (24-48) L Monocytes (%) (Auto) 9 % (0-9) Eosinophils (%) (Auto) 3 % (0-3) Basophils (%) (Auto) 1 % (0-3) Neutrophils # (Auto) 5.8 x10^3uL (1.8-7.7) Lymphocytes # (Auto) 1.0 x10^3/uL (1.0-4.8) Monocytes # (Auto) 0.7 x10^3/uL (0.0-1.1) Eosinophils # (Auto) 0.3 x10^3/uL (0.0-0.7) Basophils # (Auto) 0.1 x10^3/uL (0.0-0.2) Sodium Level 138 mmol/L (136-145) Potassium Level 3.7 mmol/L (3.5-5.1) Chloride Level 102 mmol/L (98-107) Carbon Dioxide Level 28 mmol/L (21-32) Anion Gap 8 (6-14) Blood Urea Nitrogen 14 mg/dL (8-26) Creatinine 1.0 mg/dL (0.7-1.3) Estimated GFR (Cockcroft-Gault) 73.7 BUN/Creatinine Ratio 14 (6-20) Glucose Level 160 mg/dL (70-99) H Calcium Level 9.0 mg/dL (8.5-10.1) Total Bilirubin 0.5 mg/dL (0.2-1.0) Aspartate Amino Transferase (AST) 26 U/L (15-37) Alanine Aminotransferase (ALT) 54 U/L (16-63) Alkaline Phosphatase 156 U/L (46-116) H Total Protein 7.4 g/dL (6.4-8.2) Albumin 3.5 g/dL (3.4-5.0) Albumin/Globulin Ratio 0.9 (1.0-1.7) L Current Medications: I have reviewed the current psychotropics carefully including drug interactions. Risk benefit ratio favors no change other than as noted in my dictated progress note. Diagnosis: Problems: (1) Bipolar disorder, unspecified (2) Mild cognitive impairment (3) Anxiety disorder, unspecified (4) Impulse control disorder, unspecified OBDULIA MOLINA MD Aug 15, 2020 21:13
[2020-08-16 05:48] VITALS: BP 142/82
[2020-08-16] MEDS: CALCIUM CARBONATE 500 MG TAB.CHEW PO SCH ×3 (08:37→17:21)
[2020-08-16] MEDS: amLODIPine BESYLATE 10 MG TABLET PO SCH (08:37)
[2020-08-16] MEDS: METOPROLOL SUCC 24HR ER 25 MG TAB.ER.24H. PO SCH (08:37)
[2020-08-16] MEDS: GABAPENTIN 300 MG CAPSULE. PO SCH ×2 (08:37→19:58)
[2020-08-16] MEDS: ACETAMINOPHEN 325 MG TABLET PO PRN ×2 (08:39→19:58)
[2020-08-16] MEDS: CHOLECALCIFEROL (VITAMIN D3) 50,000 UNIT CAPSULE PO SCH (08:39)
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
[2020-08-16 16:31] VITALS: BP 145/92
[2020-08-16] MEDS: CYCLOBENZAPRINE 10 MG TABLET. PO PRN (19:57)
[2020-08-16] MEDS: QUEtiapine 25 MG TABLET. PO SCH (19:58)
[2020-08-16] MEDS: traZODone 50 MG TABLET. PO SCH (19:58)
[2020-08-16] MEDS: ATORVASTATIN CALCIUM 10 MG TABLET. PO SCH (19:58)
--- NOTE | 2020-08-16 20:46 | PDOC ---
Exam Note: Jassi Note: Please also refer to the separate dictated note~for this date of service dictated separately.~Patient seen individually. Discussed the patient with Nursing staff reviewed the chart.~Reviewed interim history and current functioning. Reviewed vital signs,~Labs/ Radiology~and current medications noted below. Continue current treatment with the changes noted in the dictated addendum note Assessment: Vital Signs/I&O: Vital Signs Date Time Temp Pulse Resp B/P (MAP) Pulse Ox O2 Delivery O2 Flow Rate FiO2 08/16/20 16:31 98.7 93 18 145/92 (109) 95 08/16/20 05:48 Room Air I & O 08/15/20 08/15/20 08/16/20 15:00 23:00 07:00 Intake Total 720 ml 600 ml Balance 720 ml 600 ml Current Medications: I have reviewed the current psychotropics carefully including drug interactions. Risk benefit ratio favors no change other than as noted in my dictated progress note. Diagnosis: Problems: (1) Schizoaffective disorder, bipolar type (2) Bipolar disorder, unspecified (3) Mild cognitive impairment (4) Impulse control disorder, unspecified (5) Anxiety disorder, unspecified OBDULIA MOLINA MD Aug 16, 2020 20:46
[2020-08-17] MEDS: ACETAMINOPHEN 325 MG TABLET PO PRN ×3 (02:08→21:29)
[2020-08-17 05:39] VITALS: BP 144/73
--- NOTE | 2020-08-17 07:54 | PDOC ---
Exam Note: Jassi Note: This note is a late entry for 08/15/2020 covers elements not covered in my initial note. Subjective: The patient was reviewed on telehealth rounds in the evening of 08/15/2020 with Shalini HOLLINGSWORTH. Discussed with nursing staff, reviewed the chart. He slept 7-3/4 hours previous night. The patient was somewhat obsessed regarding his medications per nursing report frequently back at the nursing station, fixated on what time he takes his medications either 8 p.m., 9 p.m. or 10 p.m., somewhat rigid about this. I processed with him. Review of Systems: He does complain of some knee pain but no CV, , pulmonary, eye system symptoms on review. Mental Status Exam: The patient is reasonably oriented. He is pleasant, verbal, interactive as I met with him on telehealth rounds. Speech coherent. Abstraction is fair. Computation reasonable. Language function intact. Attention span is fair. Mood and affect is anxious. No suicidal or homicidal ideation. Laboratory Data: Reviewed. Impression: Bipolar disorder unspecified. Anxiety disorder unspecified. Impulse control disorder. Plan: I have carefully reviewed his current psychotropics and drug interactions. Risk-benefit ratio favors no change in his psychotropics for now. On further evaluation the patient does not seem to have diagnosis of major neurocognitive disorder or mild cognitive impairment. He has a primary psychiatric disorder and as we are looking for placement perhaps a level 2 facility might be an option as well. Assessment: Vital Signs/I&O: Vital Signs Date Time Temp Pulse Resp B/P (MAP) Pulse Ox O2 Delivery O2 Flow Rate FiO2 08/17/20 05:39 97.8 59 16 144/73 (96) 94 08/16/20 05:48 Room Air I & O 08/16/20 08/16/20 08/17/20 15:00 23:00 07:00 Intake Total 600 ml 600 ml Balance 600 ml 600 ml Current Medications: I have reviewed the current psychotropics carefully including drug interactions. Risk benefit ratio favors no change other than as noted in my dictated progress note. Diagnosis: Problems: (1) Bipolar disorder, unspecified (2) Anxiety disorder, unspecified (3) Impulse control disorder OBDULIA MOLINA MD Aug 17, 2020 07:53
--- NOTE | 2020-08-17 08:13 | PDOC ---
Exam Note: Jassi Note: This note is a late entry for 08/16/2020 covers elements not covered in my initial note. Subjective: The patient was reviewed on telehealth rounds in the morning of 08/16/2020 for a treatment team meeting with Samra Hsu and Shirin (social services counselor), Rosana, activity therapy and Niya HOLLINGSWORTH. Discussed with nursing staff, reviewed the chart. Appetite is 100%. He slept 8 hours previous night. The patient is somewhat obsessive regarding his medications as before. Review of Systems: He complains of knee pain. No CV, , pulmonary, eye system symptoms on review. Mental Status Exam: The patient is reasonably oriented. He is pleasant, verbal, interactive. Abstraction is fair. Computation reasonable. Language function intact. Attention span is fair. Mood and affect is somewhat obsessed. No suicidal or homicidal ideation. Laboratory Data: Reviewed. Impression: Bipolar disorder unspecified. Anxiety disorder unspecified. Imp ulse control disorder. Plan: Continue psychotropics from initial note. He remains on gabapentin, trazodone, Seroquel. We discussed discharge plans. Additionally at treatment team meeting, we discussed transition plans to possibly to level-2 facility. The patient does not seem to have a diagnosis of major neurocognitive disorder or even mild cognitive impairment in which case options for level 2 may be pursued as well. Assessment: Vital Signs/I&O: Vital Signs Date Time Temp Pulse Resp B/P (MAP) Pulse Ox O2 Delivery O2 Flow Rate FiO2 08/17/20 05:39 97.8 59 16 144/73 (96) 94 08/16/20 05:48 Room Air I & O 08/16/20 08/16/20 08/17/20 15:00 23:00 07:00 Intake Total 600 ml 600 ml Balance 600 ml 600 ml Current Medications: Meds: Current Medications Medications (Trade) Dose Ordered Sig/Vicente Route PRN Reason Start Time Stop Time Status Last Admin Dose Admin Acetaminophen (Tylenol) 650 mg PRN Q6HRS PRN PO MILD PAIN / TEMP > 100.3'F 06/05/20 16:45 08/17/20 02:08 Multi-Ingredient Ointment (Analgesic [place]) 1 martina PRN QID PRN TP MUSCLE PAIN 06/05/20 16:45 Cancel Al Hydroxide/Mg Hydroxide (Mylanta Plus Xs) 15 ml PRN AFTMEALHC PRN PO DYSPEPSIA 06/05/20 16:45 06/06/20 17:08 DC Magnesium Hydroxide (Milk Of Magnesia) 2,400 mg PRN QHS PRN PO CONSTIPATION 06/05/20 16:45 Acetaminophen (Tylenol) 1,000 mg BID PO 06/05/20 21:00 06/25/20 12:00 DC 06/23/20 09:08 Amlodipine Besylate (Norvasc) 5 mg DAILY PO 06/06/20 09:00 08/16/20 08:37 Cetirizine HCl (ZyrTEC) 10 mg PRN DAILY PRN PO ALLERGIES 06/05/20 18:15 07/29/20 12:21 Cyclobenzaprine HCl (Flexeril) 10 mg PRN QHS PRN PO MUSCLE SPASMS 06/05/20 18:15 08/16/20 19:57 Diclofenac Sodium (Voltaren) 1 martina PRN Q6HRS PRN TP MUSCLE SKELETAL PAIN 06/05/20 18:15 07/22/20 10:06 Divalproex Sodium (Depakote Er) 1,000 mg QHS PO 06/05/20 21:00 06/07/20 11:57 DC 06/06/20 20:47 Al Hydroxide/Mg Hydroxide (Mylanta Plus Xs) 15 ml PRN AFTMEALHC PRN PO DYSPEPSIA 06/05/20 18:15 Metoprolol Succinate (Toprol Xl) 25 mg DAILY PO 06/06/20 09:00 08/16/20 08:37 Trazodone HCl (Desyrel) 50 mg QHS PO 06/05/20 21:00 08/16/20 19:58 Calcium Carbonate/ Glycine (Tums) 500 mg TIDAFTMEAL PO 06/05/20 18:45 08/16/20 17:21 Magnesium Hydroxide (Milk Of Magnesia) 2,400 mg PRN QHS PRN PO CONSTIPATION 06/05/20 18:45 06/06/20 17:08 DC Multi-Ingredient Ointment (Analgesic [place]) 1 martina PRN QID PRN TP MUSCLE PAIN 06/05/20 18:45 06/06/20 17:09 DC Divalproex Sodium (Depakote Er) 1,250 mg QHS PO 06/07/20 21:00 113/20 19:47 DC 06/14/20 20:16 Vitamin D (Vitamin D3) 50,000 unit WEEKLY PO 06/07/20 17:15 08/16/20 08:39 Atorvastatin Calcium (Lipitor) 10 mg QHS PO 06/07/20 21:00 08/16/20 19:58 Quetiapine Fumarate (SEROquel) 25 mg QHS PO 06/09/20 21:00 08/16/20 19:58 Divalproex Sodium (Depakote Er) 250 mg QHS PO 06/15/20 21:00 06/21/20 17:39 DC 06/20/20 20:20 Divalproex Sodium (Depakote Er) 1,000 mg QHS PO 06/15/20 21:00 06/21/20 17:39 DC 06/20/20 20:21 Gabapentin (Neurontin) 300 mg BID PO 06/21/20 21:00 08/16/20 19:58 I have reviewed the current psychotropics carefully including drug interactions. Risk benefit ratio favors no change other than as noted in my dictated progress note. Diagnosis: Problems: (1) Bipolar disorder, unspecified (2) Anxiety disorder, unspecified (3) Impulse control disorder OBDULIA MOLINA MD Aug 17, 2020 08:12
[2020-08-17] MEDS: amLODIPine BESYLATE 10 MG TABLET PO SCH (09:11)
[2020-08-17] MEDS: METOPROLOL SUCC 24HR ER 25 MG TAB.ER.24H. PO SCH (09:11)
[2020-08-17] MEDS: GABAPENTIN 300 MG CAPSULE. PO SCH ×2 (09:11→19:45)
[2020-08-17] MEDS: CALCIUM CARBONATE 500 MG TAB.CHEW PO SCH ×3 (09:11→17:59)
[2020-08-17 16:15] VITALS: BP 130/80
[2020-08-17] MEDS: ATORVASTATIN CALCIUM 10 MG TABLET. PO SCH (19:45)
[2020-08-17] MEDS: CYCLOBENZAPRINE 10 MG TABLET. PO PRN (19:45)
[2020-08-17] MEDS: QUEtiapine 25 MG TABLET. PO SCH (19:45)
[2020-08-17] MEDS: traZODone 50 MG TABLET. PO SCH (19:46)
[2020-08-17] MEDS: HYDROcodone/APAP 5/325MG 1 TAB TABLET PO PRN (20:02)
--- NOTE | 2020-08-17 20:46 | PDOC ---
Exam Note: Jassi Note: Please also refer to the separate dictated note~for this date of service dictated separately.~Patient seen individually. Discussed the patient with Nursing staff reviewed the chart.~Reviewed interim history and current functioning. Reviewed vital signs,~Labs/ Radiology~and current medications noted below. Continue current treatment with the changes noted in the dictated addendum note Assessment: Vital Signs/I&O: Vital Signs Date Time Temp Pulse Resp B/P (MAP) Pulse Ox O2 Delivery O2 Flow Rate FiO2 08/17/20 16:15 98.2 96 18 130/80 (97) 95 08/16/20 05:48 Room Air I & O 08/16/20 08/16/20 08/17/20 15:00 23:00 07:00 Intake Total 600 ml 600 ml Balance 600 ml 600 ml Current Medications: Meds: Current Medications Medications (Trade) Dose Ordered Sig/Vicente Route PRN Reason Start Time Stop Time Status Last Admin Dose Admin Acetaminophen (Tylenol) 650 mg PRN Q6HRS PRN PO MILD PAIN / TEMP > 100.3'F 06/05/20 16:45 08/17/20 09:11 Multi-Ingredient Ointment (Analgesic [place]) 1 martina PRN QID PRN TP MUSCLE PAIN 06/05/20 16:45 Cancel Al Hydroxide/Mg Hydroxide (Mylanta Plus Xs) 15 ml PRN AFTMEALHC PRN PO DYSPEPSIA 06/05/20 16:45 06/06/20 17:08 DC Magnesium Hydroxide (Milk Of Magnesia) 2,400 mg PRN QHS PRN PO CONSTIPATION 06/05/20 16:45 Acetaminophen (Tylenol) 1,000 mg BID PO 06/05/20 21:00 06/25/20 12:00 DC 06/23/20 09:08 Amlodipine Besylate (Norvasc) 5 mg DAILY PO 06/06/20 09:00 08/17/20 09:11 Cetirizine HCl (ZyrTEC) 10 mg PRN DAILY PRN PO ALLERGIES 06/05/20 18:15 07/29/20 12:21 Cyclobenzaprine HCl (Flexeril) 10 mg PRN QHS PRN PO MUSCLE SPASMS 06/05/20 18:15 08/17/20 19:45 Diclofenac Sodium (Voltaren) 1 martina PRN Q6HRS PRN TP MUSCLE SKELETAL PAIN 06/05/20 18:15 07/22/20 10:06 Divalproex Sodium (Depakote Er) 1,000 mg QHS PO 06/05/20 21:00 06/07/20 11:57 DC 06/06/20 20:47 Al Hydroxide/Mg Hydroxide (Mylanta Plus Xs) 15 ml PRN AFTMEALHC PRN PO DYSPEPSIA 06/05/20 18:15 Metoprolol Succinate (Toprol Xl) 25 mg DAILY PO 06/06/20 09:00 08/17/20 09:11 Trazodone HCl (Desyrel) 50 mg QHS PO 06/05/20 21:00 08/17/20 19:46 Calcium Carbonate/ Glycine (Tums) 500 mg TIDAFTMEAL PO 06/05/20 18:45 08/17/20 17:59 Magnesium Hydroxide (Milk Of Magnesia) 2,400 mg PRN QHS PRN PO CONSTIPATION 06/05/20 18:45 06/06/20 17:08 DC Multi-Ingredient Ointment (Analgesic [place]) 1 martina PRN QID PRN TP MUSCLE PAIN 06/05/20 18:45 06/06/20 17:09 DC Divalproex Sodium (Depakote Er) 1,250 mg QHS PO 06/07/20 21:00 06/15/20 19:47 DC 06/14/20 20:16 Vitamin D (Vitamin D3) 50,000 unit WEEKLY PO 06/07/20 17:15 08/16/20 08:39 Atorvastatin Calcium (Lipitor) 10 mg QHS PO 06/07/20 21:00 08/17/20 19:45 Quetiapine Fumarate (SEROquel) 25 mg QHS PO 06/09/20 21:00 08/17/20 19:45 Divalproex Sodium (Depakote Er) 250 mg QHS PO 06/15/20 21:00 06/21/20 17:39 DC 06/20/20 20:20 Divalproex Sodium (Depakote Er) 1,000 mg QHS PO 06/15/20 21:00 06/21/20 17:39 DC 06/20/20 20:21 Gabapentin (Neurontin) 300 mg BID PO 06/21/20 21:00 08/17/20 19:45 Acetaminophen/ Hydrocodone Bitart (Lortab 5/325) 1 tab PRN Q6HRS PRN PO PAIN 08/17/20 17:15 08/17/20 20:02 Current Medications Medications (Trade) Dose Ordered Sig/Vicente Route PRN Reason Start Time Stop Time Status Last Admin Dose Admin Acetaminophen/ Hydrocodone Bitart (Lortab 5/325) 1 tab PRN Q6HRS PRN PO PAIN 08/17/20 17:15 08/17/20 20:02 I have reviewed the current psychotropics carefully including drug interactions. Risk benefit ratio favors no change other than as noted in my dictated progress note. Diagnosis: Problems: (1) Anxiety disorder, unspecified (2) Bipolar disorder, curr episode mixed, severe, with psychotic features (3) Impulse control disorder OBDULIA MOLINA MD Aug 17, 2020 20:45
[2020-08-18 05:36] VITALS: BP 124/81
[2020-08-18] MEDS: amLODIPine BESYLATE 10 MG TABLET PO SCH (09:18)
[2020-08-18] MEDS: GABAPENTIN 300 MG CAPSULE. PO SCH ×2 (09:19→19:46)
[2020-08-18] MEDS: CALCIUM CARBONATE 500 MG TAB.CHEW PO SCH ×3 (09:19→17:29)
[2020-08-18] MEDS: METOPROLOL SUCC 24HR ER 25 MG TAB.ER.24H. PO SCH (09:19)
[2020-08-18] MEDS: HYDROcodone/APAP 5/325MG 1 TAB TABLET PO PRN (09:46)
--- NOTE | 2020-08-18 10:04 | RAD ---
EXAM: Lumbar spine, 3 views; thoracic spine, 3 views. HISTORY: Fall. Pain. COMPARISON: None. FINDINGS: Lumbar spine: 3 views lumbar spine are obtained. There is mild S-shaped lumbar scoliosis with levocur vature centered at the upper lumbar levels and dextrocurvature centered at the lower lumbar levels. T here is a mild chronic right anterior wedge compression deformity of L3. There is grade 1 anterolisth esis of L5 on S1. There is mild retrolisthesis of L3 on L4 and L4 and L5. There is multilevel endplat e remodeling with disc space narrowing, osteophytosis and facet arthropathy, primarily at L4-L5. Ther e are syndesmophytes and bridging and partially bridging osteophytes at the majority of the lower tho racic and lumbar levels suggesting possible ankylosing spondylitis. Thoracic spine: 3 views of the thoracic spine are obtained. There is multilevel endplate remodeling w ith disc space narrowing and osteophytosis. There are syndesmophytes throughout the visualized thorac ic spine suggesting ankylosing spondylitis. No acute fracture is seen. IMPRESSION: 1. No acute osseous finding. 2. Multilevel advanced degenerative change throughout the thoracolumbar spine, described above. 3. Low-level listhesis and mild scoliosis, described above. 4. Findings suggesting ankylosing spondylitis. Electronically signed by: Sapphire Ambrosio MD (08/18/2020 10:02 AM) [id number]
[2020-08-18] MEDS: DICLOFENAC SODIUM 1% TOPICAL GEL 100GM TUBE. TP PRN (11:29)
[2020-08-18 15:26] VITALS: BP 133/81
[2020-08-18] MEDS: traZODone 50 MG TABLET. PO SCH (19:46)
[2020-08-18] MEDS: ATORVASTATIN CALCIUM 10 MG TABLET. PO SCH (19:46)
[2020-08-18] MEDS: QUEtiapine 25 MG TABLET. PO SCH (19:46)
[2020-08-18] MEDS: ACETAMINOPHEN 325 MG TABLET PO PRN (19:46)
[2020-08-18] MEDS: CYCLOBENZAPRINE 10 MG TABLET. PO PRN (19:46)
--- NOTE | 2020-08-18 21:39 | PDOC ---
Exam Note: Jassi Note: Please also refer to the separate dictated note~for this date of service dictated separately.~Patient seen individually. Discussed the patient with Nursing staff reviewed the chart.~Reviewed interim history and current functioning. Reviewed vital signs,~Labs/ Radiology~and current medications noted below. Continue current treatment with the changes noted in the dictated addendum note Assessment: Vital Signs/I&O: Vital Signs Date Time Temp Pulse Resp B/P (MAP) Pulse Ox O2 Delivery O2 Flow Rate FiO2 08/18/20 15:26 98.2 91 17 133/81 (98) 93 08/18/20 05:36 Room Air I & O 08/17/20 08/17/20 08/18/20 15:00 23:00 07:00 Intake Total 840 ml 720 ml Balance 840 ml 720 ml Current Medications: Meds: Current Medications Medications (Trade) Dose Ordered Sig/Vicente Route PRN Reason Start Time Stop Time Status Last Admin Dose Admin Acetaminophen (Tylenol) 650 mg PRN Q6HRS PRN PO MILD PAIN / TEMP > 100.3'F 06/05/20 16:45 08/18/20 19:46 Multi-Ingredient Ointment (Analgesic [place]) 1 martina PRN QID PRN TP MUSCLE PAIN 06/05/20 16:45 Cancel Al Hydroxide/Mg Hydroxide (Mylanta Plus Xs) 15 ml PRN AFTMEALHC PRN PO DYSPEPSIA 06/05/20 16:45 06/06/20 17:08 DC Magnesium Hydroxide (Milk Of Magnesia) 2,400 mg PRN QHS PRN PO CONSTIPATION 06/05/20 16:45 Acetaminophen (Tylenol) 1,000 mg BID PO 06/05/20 21:00 06/25/20 12:00 DC 06/23/20 09:08 Amlodipine Besylate (Norvasc) 5 mg DAILY PO 06/06/20 09:00 08/18/20 09:18 Cetirizine HCl (ZyrTEC) 10 mg PRN DAILY PRN PO ALLERGIES 06/05/20 18:15 07/29/20 12:21 Cyclobenzaprine HCl (Flexeril) 10 mg PRN QHS PRN PO MUSCLE SPASMS 06/05/20 18:15 08/18/20 19:46 Diclofenac Sodium (Voltaren) 1 martina PRN Q6HRS PRN TP MUSCLE SKELETAL PAIN 06/05/20 18:15 08/18/20 11:29 Divalproex Sodium (Depakote Er) 1,000 mg QHS PO 06/05/20 21:00 06/07/20 11:57 DC 06/06/20 20:47 Al Hydroxide/Mg Hydroxide (Mylanta Plus Xs) 15 ml PRN AFTMEALHC PRN PO DYSPEPSIA 06/05/20 18:15 Metoprolol Succinate (Toprol Xl) 25 mg DAILY PO 06/06/20 09:00 08/18/20 09:19 Trazodone HCl (Desyrel) 50 mg QHS PO 06/05/20 21:00 08/18/20 19:46 Calcium Carbonate/ Glycine (Tums) 500 mg TIDAFTMEAL PO 06/05/20 18:45 08/18/20 17:29 Magnesium Hydroxide (Milk Of Magnesia) 2,400 mg PRN QHS PRN PO CONSTIPATION 06/05/20 18:45 06/06/20 17:08 DC Multi-Ingredient Ointment (Analgesic [place]) 1 martina PRN QID PRN TP MUSCLE PAIN 06/05/20 18:45 06/06/20 17:09 DC Divalproex Sodium (Depakote Er) 1,250 mg QHS PO 06/07/20 21:00 06/15/20 19:47 DC 06/14/20 20:16 Vitamin D (Vitamin D3) 50,000 unit WEEKLY PO 06/07/20 17:15 08/16/20 08:39 Atorvastatin Calcium (Lipitor) 10 mg QHS PO 06/07/20 21:00 08/18/20 19:46 Quetiapine Fumarate (SEROquel) 25 mg QHS PO 06/09/20 21:00 08/18/20 19:46 Divalproex Sodium (Depakote Er) 250 mg QHS PO 06/15/20 21:00 06/21/20 17:39 DC 06/20/20 20:20 Divalproex Sodium (Depakote Er) 1,000 mg QHS PO 06/15/20 21:00 06/21/20 17:39 DC 06/20/20 20:21 Gabapentin (Neurontin) 300 mg BID PO 11/9/20 21:00 08/18/20 19:46 Acetaminophen/ Hydrocodone Bitart (Lortab 5/325) 1 tab PRN Q6HRS PRN PO PAIN 08/17/20 17:15 08/18/20 09:46 I have reviewed the current psychotropics carefully including drug interactions. Risk benefit ratio favors no change other than as noted in my dictated progress note. Diagnosis: Problems: (1) Schizoaffective disorder, bipolar type (2) Anxiety disorder, unspecified (3) Bipolar disorder, curr episode mixed, severe, with psychotic features (4) Major neurocognitive disorder (5) Impulse control disorder, unspecified OBDULIA MOLINA MD Aug 18, 2020 21:39
[2020-08-19 06:20] VITALS: BP 145/83
--- NOTE | 2020-08-19 07:53 | PDOC ---
Exam Note: Jassi Note: This note is a late entry for 08/17/2020 covers elements not covered in my initial note. Subjective: The patient was reviewed on telehealth rounds in the evening of 08/17/2020 with Niya HOLLINGSWORTH. Discussed with nursing staff, reviewed the chart. Appetite is 100%. He slept 6-1/2 hours previous night. Overall the patient is doing well. He does complain of some pain but generally knee pain is better. Review of Systems: No CV, , pulmonary, eye system symptoms on review. Mental Status Exam: The patient is reasonably oriented. He is pleasant, verbal, interactive, still wanting to be discharged and we addressed this during telehealth rounds. Abstraction is fair. Computation reasonable. Language function intact. Attention span is fair. Mood and affect is somewhat withdrawn. No suicidal or homicidal ideation. Laboratory Data: Reviewed. Impression: Bipolar disorder unspecified. Anxiety disorder unspecified. Impulse control disorder. Plan: Continue psychotropics from initial note. Assessment: Vital Signs/I&O: Vital Signs Date Time Temp Pulse Resp B/P (MAP) Pulse Ox O2 Delivery O2 Flow Rate FiO2 08/19/20 06:20 97.7 68 17 145/83 (103) 95 Room Air I & O 08/18/20 08/18/20 08/19/20 15:00 23:00 07:00 Intake Total 840 ml 560 ml Balance 840 ml 560 ml Current Medications: Meds: Current Medications Medications (Trade) Dose Ordered Sig/Vicente Route PRN Reason Start Time Stop Time Status Last Admin Dose Admin Acetaminophen (Tylenol) 650 mg PRN Q6HRS PRN PO MILD PAIN / TEMP > 100.3'F 06/05/20 16:45 08/18/20 19:46 Multi-Ingredient Ointment (Analgesic [place]) 1 martina PRN QID PRN TP MUSCLE PAIN 06/05/20 16:45 Cancel Al Hydroxide/Mg Hydroxide (Mylanta Plus Xs) 15 ml PRN AFTMEALHC PRN PO DYSPEPSIA 06/05/20 16:45 06/06/20 17:08 DC Magnesium Hydroxide (Milk Of Magnesia) 2,400 mg PRN QHS PRN PO CONSTIPATION 06/05/20 16:45 Acetaminophen (Tylenol) 1,000 mg BID PO 06/05/20 21:00 06/25/20 12:00 DC 11/11/20 09:08 Amlodipine Besylate (Norvasc) 5 mg DAILY PO 06/06/20 09:00 08/18/20 09:18 Cetirizine HCl (ZyrTEC) 10 mg PRN DAILY PRN PO ALLERGIES 06/05/20 18:15 07/29/20 12:21 Cyclobenzaprine HCl (Flexeril) 10 mg PRN QHS PRN PO MUSCLE SPASMS 06/05/20 18:15 08/18/20 19:46 Diclofenac Sodium (Voltaren) 1 martina PRN Q6HRS PRN TP MUSCLE SKELETAL PAIN 06/05/20 18:15 08/18/20 11:29 Divalproex Sodium (Depakote Er) 1,000 mg QHS PO 06/05/20 21:00 06/07/20 11:57 DC 06/06/20 20:47 Al Hydroxide/Mg Hydroxide (Mylanta Plus Xs) 15 ml PRN AFTMEALHC PRN PO DYSPEPSIA 06/05/20 18:15 Metoprolol Succinate (Toprol Xl) 25 mg DAILY PO 06/06/20 09:00 08/18/20 09:19 Trazodone HCl (Desyrel) 50 mg QHS PO 06/05/20 21:00 08/18/20 19:46 Calcium Carbonate/ Glycine (Tums) 500 mg TIDAFTMEAL PO 06/05/20 18:45 08/18/20 17:29 Magnesium Hydroxide (Milk Of Magnesia) 2,400 mg PRN QHS PRN PO CONSTIPATION 06/05/20 18:45 06/06/20 17:08 DC Multi-Ingredient Ointment (Analgesic [place]) 1 martina PRN QID PRN TP MUSCLE PAIN 06/05/20 18:45 06/06/20 17:09 DC Divalproex Sodium (Depakote Er) 1,250 mg QHS PO 06/07/20 21:00 06/15/20 19:47 DC 06/14/20 20:16 Vitamin D (Vitamin D3) 50,000 unit WEEKLY PO 06/07/20 17:15 08/16/20 08:39 Atorvastatin Calcium (Lipitor) 10 mg QHS PO 06/07/20 21:00 08/18/20 19:46 Quetiapine Fumarate (SEROquel) 25 mg QHS PO 06/09/20 21:00 08/18/20 19:46 Divalproex Sodium (Depakote Er) 250 mg QHS PO 06/15/20 21:00 06/21/20 17:39 DC 06/20/20 20:20 Divalproex Sodium (Depakote Er) 1,000 mg QHS PO 06/15/20 21:00 06/21/20 17:39 DC 06/20/20 20:21 Gabapentin (Neurontin) 300 mg BID PO 06/21/20 21:00 08/18/20 19:46 Acetaminophen/ Hydrocodone Bitart (Lortab 5/325) 1 tab PRN Q6HRS PRN PO PAIN 08/17/20 17:15 08/18/20 09:46 I have reviewed the current psychotropics carefully including drug interactions. Risk benefit ratio favors no change other than as noted in my dictated progress note. Diagnosis: Problems: (1) Bipolar disorder, unspecified (2) Anxiety disorder, unspecified (3) Impulse control disorder OBDULIA MOLINA MD Aug 19, 2020 07:53
[2020-08-19] MEDS: CALCIUM CARBONATE 500 MG TAB.CHEW PO SCH ×3 (07:55→18:00)
[2020-08-19] MEDS: amLODIPine BESYLATE 10 MG TABLET PO SCH (07:58)
[2020-08-19] MEDS: GABAPENTIN 300 MG CAPSULE. PO SCH ×2 (07:58→19:51)
[2020-08-19] MEDS: METOPROLOL SUCC 24HR ER 25 MG TAB.ER.24H. PO SCH (07:58)
[2020-08-19] MEDS: ACETAMINOPHEN 325 MG TABLET PO PRN ×2 (08:15→19:51)
[2020-08-19] MEDS: DICLOFENAC SODIUM 1% TOPICAL GEL 100GM TUBE. TP PRN (08:16)
--- NOTE | 2020-08-19 08:18 | PDOC ---
Exam Note: Jassi Note: This note is a late entry for 08/18/2020 covers elements not covered in my initial note. Subjective: The patient was reviewed on telehealth rounds in the evening of 08/18/2020 with Niya HOLLINGSWORTH. Discussed with nursing staff, reviewed the chart. He slept 7-1/4 hours previous night. The patient has been a little more demanding and anxious, specifically regarding his p.r.n. pain medications. I addressed this with him. Review of Systems: No CV, , pulmonary, eye system symptoms on review. Mental Status Exam: The patient is reasonably oriented. He is pleasant, verbal, interactive. We discussed discharge plans, placement options being pursued by social service staff. Abstraction is fair. Computation reasonable. Language function intact. Attention span is fair. Mood and affect withdrawn. No suicidal or homicidal ideation. Laboratory Data: Reviewed. Impression: Bipolar disorder unspecified. Anxiety disorder unspecified. Impul se control disorder. Plan: Continue psychotropics from initial note. Assessment: Vital Signs/I&O: Vital Signs Date Time Temp Pulse Resp B/P (MAP) Pulse Ox O2 Delivery O2 Flow Rate FiO2 08/19/20 07:58 68 145/83 08/19/20 06:20 97.7 17 95 Room Air I & O 08/18/20 08/18/20 08/19/20 15:00 23:00 07:00 Intake Total 840 ml 560 ml Balance 840 ml 560 ml Current Medications: Meds: Current Medications Medications (Trade) Dose Ordered Sig/Vicente Route PRN Reason Start Time Stop Time Status Last Admin Dose Admin Acetaminophen (Tylenol) 650 mg PRN Q6HRS PRN PO MILD PAIN / TEMP > 100.3'F 06/05/20 16:45 08/19/20 08:15 Multi-Ingredient Ointment (Analgesic [place]) 1 martina PRN QID PRN TP MUSCLE PAIN 06/05/20 16:45 Cancel Al Hydroxide/Mg Hydroxide (Mylanta Plus Xs) 15 ml PRN AFTMEALHC PRN PO DYSPEPSIA 06/05/20 16:45 06/06/20 17:08 DC Magnesium Hydroxide (Milk Of Magnesia) 2,400 mg PRN QHS PRN PO CONSTIPATION 06/05/20 16:45 Acetaminophen (Tylenol) 1,000 mg BID PO 06/05/20 21:00 11/13/20 12:00 DC 06/23/20 09:08 Amlodipine Besylate (Norvasc) 5 mg DAILY PO 06/06/20 09:00 08/19/20 07:58 Cetirizine HCl (ZyrTEC) 10 mg PRN DAILY PRN PO ALLERGIES 06/05/20 18:15 07/29/20 12:21 Cyclobenzaprine HCl (Flexeril) 10 mg PRN QHS PRN PO MUSCLE SPASMS 06/05/20 18:15 08/18/20 19:46 Diclofenac Sodium (Voltaren) 1 martina PRN Q6HRS PRN TP MUSCLE SKELETAL PAIN 06/05/20 18:15 08/19/20 08:16 Divalproex Sodium (Depakote Er) 1,000 mg QHS PO 06/05/20 21:00 06/07/20 11:57 DC 06/06/20 20:47 Al Hydroxide/Mg Hydroxide (Mylanta Plus Xs) 15 ml PRN AFTMEALHC PRN PO DYSPEPSIA 06/05/20 18:15 Metoprolol Succinate (Toprol Xl) 25 mg DAILY PO 06/06/20 09:00 08/19/20 07:58 Trazodone HCl (Desyrel) 50 mg QHS PO 06/05/20 21:00 08/18/20 19:46 Calcium Carbonate/ Glycine (Tums) 500 mg TIDAFTMEAL PO 06/05/20 18:45 08/19/20 07:55 Magnesium Hydroxide (Milk Of Magnesia) 2,400 mg PRN QHS PRN PO CONSTIPATION 06/05/20 18:45 06/06/20 17:08 DC Multi-Ingredient Ointment (Analgesic [place]) 1 martina PRN QID PRN TP MUSCLE PAIN 06/05/20 18:45 06/06/20 17:09 DC Divalproex Sodium (Depakote Er) 1,250 mg QHS PO 06/07/20 21:00 06/15/20 19:47 DC 06/14/20 20:16 Vitamin D (Vitamin D3) 50,000 unit WEEKLY PO 06/07/20 17:15 08/16/20 08:39 Atorvastatin Calcium (Lipitor) 10 mg QHS PO 06/07/20 21:00 08/18/20 19:46 Quetiapine Fumarate (SEROquel) 25 mg QHS PO 06/09/20 21:00 08/18/20 19:46 Divalproex Sodium (Depakote Er) 250 mg QHS PO 06/15/20 21:00 06/21/20 17:39 DC 06/20/20 20:20 Divalproex Sodium (Depakote Er) 1,000 mg QHS PO 06/15/20 21:00 06/21/20 17:39 DC 06/20/20 20:21 Gabapentin (Neurontin) 300 mg BID PO 06/21/20 21:00 08/19/20 07:58 Acetaminophen/ Hydrocodone Bitart (Lortab 5/325) 1 tab PRN Q6HRS PRN PO PAIN 08/17/20 17:15 08/18/20 09:46 I have reviewed the current psychotropics carefully including drug interactions. Risk benefit ratio favors no change other than as noted in my dictated progress note. Diagnosis: Problems: (1) Anxiety disorder, unspecified (2) Impulse control disorder (3) Bipolar disorder, unspecified OBDULIA MOLINA MD Aug 19, 2020 08:18
[2020-08-19 15:32] VITALS: BP 131/77
[2020-08-19] MEDS: ATORVASTATIN CALCIUM 10 MG TABLET. PO SCH (19:51)
[2020-08-19] MEDS: QUEtiapine 25 MG TABLET. PO SCH (19:51)
[2020-08-19] MEDS: CYCLOBENZAPRINE 10 MG TABLET. PO PRN (19:51)
[2020-08-19] MEDS: traZODone 50 MG TABLET. PO SCH (19:51)
--- NOTE | 2020-08-19 20:56 | PDOC ---
Exam Note: Jassi Note: Please also refer to the separate dictated note~for this date of service dictated separately.~Patient seen individually. Discussed the patient with Nursing staff reviewed the chart.~Reviewed interim history and current functioning. Reviewed vital signs,~Labs/ Radiology~and current medications noted below. Continue current treatment with the changes noted in the dictated addendum note Assessment: Vital Signs/I&O: Vital Signs Date Time Temp Pulse Resp B/P (MAP) Pulse Ox O2 Delivery O2 Flow Rate FiO2 08/19/20 15:32 98.1 73 17 131/77 (95) 97 08/19/20 06:20 Room Air I & O 08/18/20 08/18/20 08/19/20 15:00 23:00 07:00 Intake Total 840 ml 560 ml Balance 840 ml 560 ml Current Medications: Meds: Current Medications Medications (Trade) Dose Ordered Sig/Vicente Route PRN Reason Start Time Stop Time Status Last Admin Dose Admin Acetaminophen (Tylenol) 650 mg PRN Q6HRS PRN PO MILD PAIN / TEMP > 100.3'F 06/05/20 16:45 08/19/20 19:51 Multi-Ingredient Ointment (Analgesic [place]) 1 martina PRN QID PRN TP MUSCLE PAIN 06/05/20 16:45 Cancel Al Hydroxide/Mg Hydroxide (Mylanta Plus Xs) 15 ml PRN AFTMEALHC PRN PO DYSPEPSIA 06/05/20 16:45 06/06/20 17:08 DC Magnesium Hydroxide (Milk Of Magnesia) 2,400 mg PRN QHS PRN PO CONSTIPATION 06/05/20 16:45 Acetaminophen (Tylenol) 1,000 mg BID PO 06/05/20 21:00 06/25/20 12:00 DC 06/23/20 09:08 Amlodipine Besylate (Norvasc) 5 mg DAILY PO 06/06/20 09:00 08/19/20 07:58 Cetirizine HCl (ZyrTEC) 10 mg PRN DAILY PRN PO ALLERGIES 06/05/20 18:15 07/29/20 12:21 Cyclobenzaprine HCl (Flexeril) 10 mg PRN QHS PRN PO MUSCLE SPASMS 06/05/20 18:15 08/19/20 19:51 Diclofenac Sodium (Voltaren) 1 martina PRN Q6HRS PRN TP MUSCLE SKELETAL PAIN 06/05/20 18:15 08/19/20 08:16 Divalproex Sodium (Depakote Er) 1,000 mg QHS PO 06/05/20 21:00 06/07/20 11:57 DC 06/06/20 20:47 Al Hydroxide/Mg Hydroxide (Mylanta Plus Xs) 15 ml PRN AFTMEALHC PRN PO DYSPEPSIA 06/05/20 18:15 Metoprolol Succinate (Toprol Xl) 25 mg DAILY PO 06/06/20 09:00 08/19/20 07:58 Trazodone HCl (Desyrel) 50 mg QHS PO 06/05/20 21:00 08/19/20 19:51 Calcium Carbonate/ Glycine (Tums) 500 mg TIDAFTMEAL PO 06/05/20 18:45 08/19/20 18:00 Magnesium Hydroxide (Milk Of Magnesia) 2,400 mg PRN QHS PRN PO CONSTIPATION 06/05/20 18:45 06/06/20 17:08 DC Multi-Ingredient Ointment (Analgesic [place]) 1 martina PRN QID PRN TP MUSCLE PAIN 06/05/20 18:45 06/06/20 17:09 DC Divalproex Sodium (Depakote Er) 1,250 mg QHS PO 06/07/20 21:00 06/15/20 19:47 DC 06/14/20 20:16 Vitamin D (Vitamin D3) 50,000 unit WEEKLY PO 06/07/20 17:15 08/16/20 08:39 Atorvastatin Calcium (Lipitor) 10 mg QHS PO 06/07/20 21:00 08/19/20 19:51 Quetiapine Fumarate (SEROquel) 25 mg QHS PO 06/09/20 21:00 08/19/20 19:51 Divalproex Sodium (Depakote Er) 250 mg QHS PO 06/15/20 21:00 06/21/20 17:39 DC 06/20/20 20:20 Divalproex Sodium (Depakote Er) 1,000 mg QHS PO 06/15/20 21:00 06/21/20 17:39 DC 06/20/20 20:21 Gabapentin (Neurontin) 300 mg BID PO 11/9/20 21:00 08/19/20 19:51 Acetaminophen/ Hydrocodone Bitart (Lortab 5/325) 1 tab PRN Q6HRS PRN PO PAIN 08/17/20 17:15 08/18/20 09:46 I have reviewed the current psychotropics carefully including drug interactions. Risk benefit ratio favors no change other than as noted in my dictated progress note. Diagnosis: Problems: (1) Bipolar disorder, unspecified (2) Anxiety disorder, unspecified (3) Impulse control disorder OBDULIA MOLINA MD Aug 19, 2020 20:56
[2020-08-20] MEDS: DICLOFENAC SODIUM 1% TOPICAL GEL 100GM TUBE. TP PRN ×4 (04:24→20:01)
[2020-08-20 06:27] VITALS: BP 155/77
[2020-08-20] MEDS: amLODIPine BESYLATE 10 MG TABLET PO SCH (08:35)
[2020-08-20] MEDS: CALCIUM CARBONATE 500 MG TAB.CHEW PO SCH ×3 (08:35→17:34)
[2020-08-20] MEDS: METOPROLOL SUCC 24HR ER 25 MG TAB.ER.24H. PO SCH (08:36)
[2020-08-20] MEDS: GABAPENTIN 300 MG CAPSULE. PO SCH ×2 (08:36→19:59)
[2020-08-20] MEDS: ACETAMINOPHEN 325 MG TABLET PO PRN (08:58)
[2020-08-20 15:00] VITALS: BP 135/85
[2020-08-20] MEDS ORDERED: ACETAMINOPHEN 325 MG TABLET PO PRN (15:30)
[2020-08-20] MEDS: QUEtiapine 25 MG TABLET. PO SCH (19:59)
[2020-08-20] MEDS: ATORVASTATIN CALCIUM 10 MG TABLET. PO SCH (19:59)
[2020-08-20] MEDS: CYCLOBENZAPRINE 10 MG TABLET. PO PRN (20:00)
[2020-08-20] MEDS: traZODone 50 MG TABLET. PO SCH (20:00)
[2020-08-20] MEDS: HYDROcodone/APAP 5/325MG 1 TAB TABLET PO PRN (20:02)
--- NOTE | 2020-08-20 21:04 | PDOC ---
Exam Note: Jassi Note: Please also refer to the separate dictated note~for this date of service dictated separately.~Patient seen individually. Discussed the patient with Nursing staff reviewed the chart.~Reviewed interim history and current functioning. Reviewed vital signs,~Labs/ Radiology~and current medications noted below. Continue current treatment with the changes noted in the dictated addendum note Assessment: Vital Signs/I&O: Vital Signs Date Time Temp Pulse Resp B/P (MAP) Pulse Ox O2 Delivery O2 Flow Rate FiO2 08/20/20 20:02 96 08/20/20 15:00 97.2 92 20 135/85 (102) Room Air I & O 08/19/20 08/19/20 08/20/20 15:00 23:00 07:00 Intake Total 780 ml 480 ml Balance 780 ml 480 ml Current Medications: Meds: Current Medications Medications (Trade) Dose Ordered Sig/Vicente Route PRN Reason Start Time Stop Time Status Last Admin Dose Admin Acetaminophen (Tylenol) 650 mg PRN Q6HRS PRN PO MILD PAIN / TEMP > 100.3'F 06/05/20 16:45 08/20/20 15:27 DC 08/20/20 08:58 Multi-Ingredient Ointment (Analgesic [place]) 1 martina PRN QID PRN TP MUSCLE PAIN 06/05/20 16:45 Cancel Al Hydroxide/Mg Hydroxide (Mylanta Plus Xs) 15 ml PRN AFTMEALHC PRN PO DYSPEPSIA 06/05/20 16:45 06/06/20 17:08 DC Magnesium Hydroxide (Milk Of Magnesia) 2,400 mg PRN QHS PRN PO CONSTIPATION 06/05/20 16:45 Acetaminophen (Tylenol) 1,000 mg BID PO 06/05/20 21:00 06/25/20 12:00 DC 06/23/20 09:08 Amlodipine Besylate (Norvasc) 5 mg DAILY PO 06/06/20 09:00 08/20/20 08:35 Cetirizine HCl (ZyrTEC) 10 mg PRN DAILY PRN PO ALLERGIES 06/05/20 18:15 07/29/20 12:21 Cyclobenzaprine HCl (Flexeril) 10 mg PRN QHS PRN PO MUSCLE SPASMS 06/05/20 18:15 08/20/20 20:00 Diclofenac Sodium (Voltaren) 1 martina PRN Q6HRS PRN TP MUSCLE SKELETAL PAIN 06/05/20 18:15 08/20/20 20:01 Divalproex Sodium (Depakote Er) 1,000 mg QHS PO 06/05/20 21:00 06/07/20 11:57 DC 06/06/20 20:47 Al Hydroxide/Mg Hydroxide (Mylanta Plus Xs) 15 ml PRN AFTMEALHC PRN PO DYSPEPSIA 06/05/20 18:15 Metoprolol Succinate (Toprol Xl) 25 mg DAILY PO 06/06/20 09:00 08/20/20 08:36 Trazodone HCl (Desyrel) 50 mg QHS PO 06/05/20 21:00 08/20/20 20:00 Calcium Carbonate/ Glycine (Tums) 500 mg TIDAFTMEAL PO 06/05/20 18:45 08/20/20 17:34 Magnesium Hydroxide (Milk Of Magnesia) 2,400 mg PRN QHS PRN PO CONSTIPATION 06/05/20 18:45 06/06/20 17:08 DC Multi-Ingredient Ointment (Analgesic [place]) 1 martina PRN QID PRN TP MUSCLE PAIN 06/05/20 18:45 06/06/20 17:09 DC Divalproex Sodium (Depakote Er) 1,250 mg QHS PO 06/07/20 21:00 06/15/20 19:47 DC 06/14/20 20:16 Vitamin D (Vitamin D3) 50,000 unit WEEKLY PO 06/07/20 17:15 08/16/20 08:39 Atorvastatin Calcium (Lipitor) 10 mg QHS PO 06/07/20 21:00 08/20/20 19:59 Quetiapine Fumarate (SEROquel) 25 mg QHS PO 06/09/20 21:00 08/20/20 19:59 Divalproex Sodium (Depakote Er) 250 mg QHS PO 06/15/20 21:00 06/21/20 17:39 DC 06/20/20 20:20 Divalproex Sodium (Depakote Er) 1,000 mg QHS PO 06/15/20 21:00 06/21/20 17:39 DC 06/20/20 20:21 Gabapentin (Neurontin) 300 mg BID PO 06/21/20 21:00 08/20/20 19:59 Acetaminophen/ Hydrocodone Bitart (Lortab 5/325) 1 tab PRN Q6HRS PRN PO PAIN 08/17/20 17:15 08/20/20 20:02 Acetaminophen (Tylenol) 1,300 mg PRN Q8HRS PRN PO MILD PAIN / TEMP > 100.3'F 08/20/20 15:30 I have reviewed the current psychotropics carefully including drug interactions. Risk benefit ratio favors no change other than as noted in my dictated progress note. Diagnosis: Problems: (1) Bipolar disorder, unspecified (2) Anxiety disorder, unspecified (3) Impulse control disorder OBDULIA MOLINA MD Aug 20, 2020 21:04
[2020-08-21 06:24] VITALS: BP 117/71
[2020-08-21] MEDS: CALCIUM CARBONATE 500 MG TAB.CHEW PO SCH ×3 (08:11→17:30)
[2020-08-21] MEDS: METOPROLOL SUCC 24HR ER 25 MG TAB.ER.24H. PO SCH (08:11)
[2020-08-21] MEDS: amLODIPine BESYLATE 10 MG TABLET PO SCH (08:12)
[2020-08-21] MEDS: GABAPENTIN 300 MG CAPSULE. PO SCH ×2 (08:12→19:58)
--- NOTE | 2020-08-21 08:21 | PDOC ---
Exam Note: Jassi Note: This note is a late entry for 08/19/2020 covers elements not covered in my initial note. Subjective: The patient was reviewed on telehealth rounds in the evening of 08/19/2020 with Tennille HOLLINGSWORTH. Discussed with nursing staff, reviewed the chart. He slept 6-1/2 hours previous night. He is pretty much the same as previous. Review of Systems: No CV, , pulmonary, eye system symptoms on review. Mental Status Exam: The patient is reasonably oriented. He is pleasant, verbal, interactive. He does complain of back pain but feels relief with Voltaren gel. Abstraction is fair. Computation reasonable. Language function intact. Attention span is fair. Mood and affect withdrawn. No suicidal or homicidal ideation. Laboratory Data: Reviewed. Impression: Bipolar disorder unspecified. Anxiety disorder unspecified. Impulse control disorder. Plan: Continue psychotropics from initial note. Assessment: Vital Signs/I&O: Vital Signs Date Time Temp Pulse Resp B/P (MAP) Pulse Ox O2 Delivery O2 Flow Rate FiO2 08/21/20 08:12 61 117/71 08/21/20 06:24 97.3 14 96 08/20/20 15:00 Room Air I & O 08/20/20 08/20/20 08/21/20 15:00 23:00 07:00 Intake Total 360 ml 1080 ml Balance 360 ml 1080 ml Current Medications: Meds: Current Medications Medications (Trade) Dose Ordered Sig/Vicente Route PRN Reason Start Time Stop Time Status Last Admin Dose Admin Acetaminophen (Tylenol) 650 mg PRN Q6HRS PRN PO MILD PAIN / TEMP > 100.3'F 06/05/20 16:45 08/20/20 15:27 DC 08/20/20 08:58 Multi-Ingredient Ointment (Analgesic [place]) 1 martina PRN QID PRN TP MUSCLE PAIN 06/05/20 16:45 Cancel Al Hydroxide/Mg Hydroxide (Mylanta Plus Xs) 15 ml PRN AFTMEALHC PRN PO DYSPEPSIA 06/05/20 16:45 06/06/20 17:08 DC Magnesium Hydroxide (Milk Of Magnesia) 2,400 mg PRN QHS PRN PO CONSTIPATION 06/05/20 16:45 Acetaminophen (Tylenol) 1,000 mg BID PO 06/05/20 21:00 06/25/20 12:00 DC 06/23/20 09:08 Amlodipine Besylate (Norvasc) 5 mg DAILY PO 06/06/20 09:00 08/21/20 08:12 Cetirizine HCl (ZyrTEC) 10 mg PRN DAILY PRN PO ALLERGIES 06/05/20 18:15 07/29/20 12:21 Cyclobenzaprine HCl (Flexeril) 10 mg PRN QHS PRN PO MUSCLE SPASMS 06/05/20 18:15 08/20/20 20:00 Diclofenac Sodium (Voltaren) 1 martina PRN Q6HRS PRN TP MUSCLE SKELETAL PAIN 06/05/20 18:15 08/20/20 20:01 Divalproex Sodium (Depakote Er) 1,000 mg QHS PO 06/05/20 21:00 06/07/20 11:57 DC 06/06/20 20:47 Al Hydroxide/Mg Hydroxide (Mylanta Plus Xs) 15 ml PRN AFTMEALHC PRN PO DYSPEPSIA 06/05/20 18:15 Metoprolol Succinate (Toprol Xl) 25 mg DAILY PO 06/06/20 09:00 08/21/20 08:11 Trazodone HCl (Desyrel) 50 mg QHS PO 06/05/20 21:00 08/20/20 20:00 Calcium Carbonate/ Glycine (Tums) 500 mg TIDAFTMEAL PO 06/05/20 18:45 08/21/20 08:11 Magnesium Hydroxide (Milk Of Magnesia) 2,400 mg PRN QHS PRN PO CONSTIPATION 06/05/20 18:45 06/06/20 17:08 DC Multi-Ingredient Ointment (Analgesic [place]) 1 martina PRN QID PRN TP MUSCLE PAIN 06/05/20 18:45 06/06/20 17:09 DC Divalproex Sodium (Depakote Er) 1,250 mg QHS PO 06/07/20 21:00 06/15/20 19:47 DC 06/14/20 20:16 Vitamin D (Vitamin D3) 50,000 unit WEEKLY PO 06/07/20 17:15 08/16/20 08:39 Atorvastatin Calcium (Lipitor) 10 mg QHS PO 06/07/20 21:00 08/20/20 19:59 Quetiapine Fumarate (SEROquel) 25 mg QHS PO 06/09/20 21:00 08/20/20 19:59 Divalproex Sodium (Depakote Er) 250 mg QHS PO 06/15/20 21:00 06/21/20 17:39 DC 06/20/20 20:20 Divalproex Sodium (Depakote Er) 1,000 mg QHS PO 06/15/20 21:00 06/21/20 17:39 DC 06/20/20 20:21 Gabapentin (Neurontin) 300 mg BID PO 06/21/20 21:00 08/21/20 08:12 Acetaminophen/ Hydrocodone Bitart (Lortab 5/325) 1 tab PRN Q6HRS PRN PO PAIN 08/17/20 17:15 08/20/20 20:02 Acetaminophen (Tylenol) 1,300 mg PRN Q8HRS PRN PO MILD PAIN / TEMP > 100.3'F 08/20/20 15:30 I have reviewed the current psychotropics carefully including drug interactions. Risk benefit ratio favors no change other than as noted in my dictated progress note. Diagnosis: Problems: (1) Major neurocognitive disorder (2) Impulse control disorder, unspecified (3) Bipolar disorder, curr episode mixed, severe, with psychotic features (4) Schizoaffective disorder, bipolar type (5) Anxiety disorder, unspecified OBDULIA MOLINA MD Aug 21, 2020 08:21
--- NOTE | 2020-08-21 08:37 | PDOC ---
Exam Note: Jassi Note: This note is a late entry for 08/20/2020 covers elements not covered in my initial note. Subjective: The patient was reviewed on telehealth rounds in the evening of 08/20/2020 with Vel HOLLINGSWORTH. Discussed with nursing staff, reviewed the chart. He slept 6-1/4 hours previous night. The patient is preoccupied with his back rub Voltaren gel. Other than back pain he does not complain of knee pain. Review of Systems: No CV, , pulmonary, eye system symptoms on review. Mental Status Exam: The patient is reasonably oriented. He is pleasant, verbal, interactive. Abstraction is fair. Computation reasonable. Language function intact. Attention span is fair. Mood and affect withdrawn. No suicidal or homicidal ideation. Laboratory Data: Reviewed. Impression: Bipolar disorder unspecified. Anxiety disorder unspecified. Impulse control disorder. Plan: No change from initial note. Assessment: Vital Signs/I&O: Vital Signs Date Time Temp Pulse Resp B/P (MAP) Pulse Ox O2 Delivery O2 Flow Rate FiO2 08/21/20 08:12 61 117/71 08/21/20 06:24 97.3 14 96 08/20/20 15:00 Room Air I & O 08/20/20 08/20/20 08/21/20 15:00 23:00 07:00 Intake Total 360 ml 1080 ml Balance 360 ml 1080 ml Current Medications: Meds: Current Medications Medications (Trade) Dose Ordered Sig/Vicente Route PRN Reason Start Time Stop Time Status Last Admin Dose Admin Acetaminophen (Tylenol) 650 mg PRN Q6HRS PRN PO MILD PAIN / TEMP > 100.3'F 06/05/20 16:45 08/20/20 15:27 DC 08/20/20 08:58 Multi-Ingredient Ointment (Analgesic [place]) 1 martina PRN QID PRN TP MUSCLE PAIN 06/05/20 16:45 Cancel Al Hydroxide/Mg Hydroxide (Mylanta Plus Xs) 15 ml PRN AFTMEALHC PRN PO DYSPEPSIA 06/05/20 16:45 06/06/20 17:08 DC Magnesium Hydroxide (Milk Of Magnesia) 2,400 mg PRN QHS PRN PO CONSTIPATION 06/05/20 16:45 Acetaminophen (Tylenol) 1,000 mg BID PO 06/05/20 21:00 06/25/20 12:00 DC 06/23/20 09:08 Amlodipine Besylate (Norvasc) 5 mg DAILY PO 06/06/20 09:00 08/21/20 08:12 Cetirizine HCl (ZyrTEC) 10 mg PRN DAILY PRN PO ALLERGIES 06/05/20 18:15 07/29/20 12:21 Cyclobenzaprine HCl (Flexeril) 10 mg PRN QHS PRN PO MUSCLE SPASMS 06/05/20 18:15 08/20/20 20:00 Diclofenac Sodium (Voltaren) 1 martina PRN Q6HRS PRN TP MUSCLE SKELETAL PAIN 06/05/20 18:15 08/20/20 20:01 Divalproex Sodium (Depakote Er) 1,000 mg QHS PO 06/05/20 21:00 06/07/20 11:57 DC 06/06/20 20:47 Al Hydroxide/Mg Hydroxide (Mylanta Plus Xs) 15 ml PRN AFTMEALHC PRN PO DYSPEPSIA 06/05/20 18:15 Metoprolol Succinate (Toprol Xl) 25 mg DAILY PO 06/06/20 09:00 08/21/20 08:11 Trazodone HCl (Desyrel) 50 mg QHS PO 06/05/20 21:00 08/20/20 20:00 Calcium Carbonate/ Glycine (Tums) 500 mg TIDAFTMEAL PO 06/05/20 18:45 08/21/20 08:11 Magnesium Hydroxide (Milk Of Magnesia) 2,400 mg PRN QHS PRN PO CONSTIPATION 06/05/20 18:45 06/06/20 17:08 DC Multi-Ingredient Ointment (Analgesic [place]) 1 martina PRN QID PRN TP MUSCLE PAIN 06/05/20 18:45 06/06/20 17:09 DC Divalproex Sodium (Depakote Er) 1,250 mg QHS PO 06/07/20 21:00 06/15/20 19:47 DC 06/14/20 20:16 Vitamin D (Vitamin D3) 50,000 unit WEEKLY PO 06/07/20 17:15 08/16/20 08:39 Atorvastatin Calcium (Lipitor) 10 mg QHS PO 06/07/20 21:00 08/20/20 19:59 Quetiapine Fumarate (SEROquel) 25 mg QHS PO 06/09/20 21:00 08/20/20 19:59 Divalproex Sodium (Depakote Er) 250 mg QHS PO 06/15/20 21:00 06/21/20 17:39 DC 06/20/20 20:20 Divalproex Sodium (Depakote Er) 1,000 mg QHS PO 06/15/20 21:00 06/21/20 17:39 DC 06/20/20 20:21 Gabapentin (Neurontin) 300 mg BID PO 06/21/20 21:00 08/21/20 08:12 Acetaminophen/ Hydrocodone Bitart (Lortab 5/325) 1 tab PRN Q6HRS PRN PO PAIN 08/17/20 17:15 08/20/20 20:02 Acetaminophen (Tylenol) 1,300 mg PRN Q8HRS PRN PO MILD PAIN / TEMP > 100.3'F 08/20/20 15:30 I have reviewed the current psychotropics carefully including drug interactions. Risk benefit ratio favors no change other than as noted in my dictated progress note. Diagnosis: Problems: (1) Bipolar disorder, unspecified (2) Anxiety disorder, unspecified (3) Impulse control disorder OBDULIA MOLINA MD Aug 21, 2020 08:37
[2020-08-21 16:26] VITALS: BP 123/84
[2020-08-21] MEDS: QUEtiapine 25 MG TABLET. PO SCH (19:57)
[2020-08-21] MEDS: ATORVASTATIN CALCIUM 10 MG TABLET. PO SCH (19:57)
[2020-08-21] MEDS: traZODone 50 MG TABLET. PO SCH (19:57)
[2020-08-21] MEDS: CYCLOBENZAPRINE 10 MG TABLET. PO PRN (19:58)
[2020-08-21] MEDS: HYDROcodone/APAP 5/325MG 1 TAB TABLET PO PRN (19:59)
--- NOTE | 2020-08-21 21:01 | PDOC ---
Exam Note: Jassi Note: Please also refer to the separate dictated note~for this date of service dictated separately.~Patient seen individually. Discussed the patient with Nursing staff reviewed the chart.~Reviewed interim history and current functioning. Reviewed vital signs,~Labs/ Radiology~and current medications noted below. Continue current treatment with the changes noted in the dictated addendum note Assessment: Vital Signs/I&O: Vital Signs Date Time Temp Pulse Resp B/P (MAP) Pulse Ox O2 Delivery O2 Flow Rate FiO2 08/21/20 19:59 98 08/21/20 16:26 97.9 89 20 123/84 (97) 08/20/20 15:00 Room Air I & O 08/20/20 08/20/20 08/21/20 15:00 23:00 07:00 Intake Total 360 ml 1080 ml Balance 360 ml 1080 ml Current Medications: Meds: Current Medications Medications (Trade) Dose Ordered Sig/Vicente Route PRN Reason Start Time Stop Time Status Last Admin Dose Admin Acetaminophen (Tylenol) 650 mg PRN Q6HRS PRN PO MILD PAIN / TEMP > 100.3'F 06/05/20 16:45 08/20/20 15:27 DC 08/20/20 08:58 Multi-Ingredient Ointment (Analgesic [place]) 1 martina PRN QID PRN TP MUSCLE PAIN 06/05/20 16:45 Cancel Al Hydroxide/Mg Hydroxide (Mylanta Plus Xs) 15 ml PRN AFTMEALHC PRN PO DYSPEPSIA 06/05/20 16:45 06/06/20 17:08 DC Magnesium Hydroxide (Milk Of Magnesia) 2,400 mg PRN QHS PRN PO CONSTIPATION 06/05/20 16:45 Acetaminophen (Tylenol) 1,000 mg BID PO 06/05/20 21:00 06/25/20 12:00 DC 06/23/20 09:08 Amlodipine Besylate (Norvasc) 5 mg DAILY PO 06/06/20 09:00 08/21/20 08:12 Cetirizine HCl (ZyrTEC) 10 mg PRN DAILY PRN PO ALLERGIES 06/05/20 18:15 07/29/20 12:21 Cyclobenzaprine HCl (Flexeril) 10 mg PRN QHS PRN PO MUSCLE SPASMS 06/05/20 18:15 08/21/20 19:58 Diclofenac Sodium (Voltaren) 1 martina PRN Q6HRS PRN TP MUSCLE SKELETAL PAIN 06/05/20 18:15 08/20/20 20:01 Divalproex Sodium (Depakote Er) 1,000 mg QHS PO 06/05/20 21:00 06/07/20 11:57 DC 06/06/20 20:47 Al Hydroxide/Mg Hydroxide (Mylanta Plus Xs) 15 ml PRN AFTMEALHC PRN PO DYSPEPSIA 06/05/20 18:15 Metoprolol Succinate (Toprol Xl) 25 mg DAILY PO 06/06/20 09:00 08/21/20 08:11 Trazodone HCl (Desyrel) 50 mg QHS PO 06/05/20 21:00 08/21/20 19:57 Calcium Carbonate/ Glycine (Tums) 500 mg TIDAFTMEAL PO 06/05/20 18:45 08/21/20 17:30 Magnesium Hydroxide (Milk Of Magnesia) 2,400 mg PRN QHS PRN PO CONSTIPATION 06/05/20 18:45 06/06/20 17:08 DC Multi-Ingredient Ointment (Analgesic [place]) 1 martina PRN QID PRN TP MUSCLE PAIN 06/05/20 18:45 06/06/20 17:09 DC Divalproex Sodium (Depakote Er) 1,250 mg QHS PO 06/07/20 21:00 06/15/20 19:47 DC 06/14/20 20:16 Vitamin D (Vitamin D3) 50,000 unit WEEKLY PO 06/07/20 17:15 08/16/20 08:39 Atorvastatin Calcium (Lipitor) 10 mg QHS PO 06/07/20 21:00 08/21/20 19:57 Quetiapine Fumarate (SEROquel) 25 mg QHS PO 06/09/20 21:00 08/21/20 19:57 Divalproex Sodium (Depakote Er) 250 mg QHS PO 06/15/20 21:00 06/21/20 17:39 DC 06/20/20 20:20 Divalproex Sodium (Depakote Er) 1,000 mg QHS PO 06/15/20 21:00 06/21/20 17:39 DC 06/20/20 20:21 Gabapentin (Neurontin) 300 mg BID PO 06/21/20 21:00 08/21/20 19:58 Acetaminophen/ Hydrocodone Bitart (Lortab 5/325) 1 tab PRN Q6HRS PRN PO PAIN 08/17/20 17:15 08/21/20 19:59 Acetaminophen (Tylenol) 1,300 mg PRN Q8HRS PRN PO MILD PAIN / TEMP > 100.3'F 08/20/20 15:30 I have reviewed the current psychotropics carefully including drug interactions. Risk benefit ratio favors no change other than as noted in my dictated progress note. Diagnosis: Problems: (1) Bipolar disorder, unspecified (2) Impulse control disorder (3) Anxiety disorder, unspecified OBDULIA MOLINA MD Aug 21, 2020 21:01
[2020-08-22 06:08] VITALS: BP 129/79
[2020-08-22 07:40] LABS: HEMATOCRIT 39.7 % (39.0-53.0); HEMOGLOBIN 13.4 g/dL (13.0-17.5); RED BLOOD COUNT 4.38 x10^6/uL (4.30-5.70); RED CELL DISTRIBUTION WIDTH 13.2 % (11.5-14.5)
[2020-08-22 08:00] LABS: ALBUMIN 3.4 g/dL (3.4-5.0); CALCIUM 8.8 mg/dL (8.5-10.1); CREATININE 0.9 mg/dL (0.7-1.3); GFR 83.2; POTASSIUM 4.2 mmol/L (3.5-5.1); TOTAL BILIRUBIN 0.3 mg/dL (0.2-1.0); TOTAL PROTEIN 6.9 g/dL (6.4-8.2)
[2020-08-22] MEDS: amLODIPine BESYLATE 10 MG TABLET PO SCH (08:17)
[2020-08-22] MEDS: GABAPENTIN 300 MG CAPSULE. PO SCH ×2 (08:17→20:03)
[2020-08-22] MEDS: METOPROLOL SUCC 24HR ER 25 MG TAB.ER.24H. PO SCH (08:18)
[2020-08-22] MEDS: CALCIUM CARBONATE 500 MG TAB.CHEW PO SCH ×3 (08:18→16:46)
--- NOTE | 2020-08-22 08:21 | PDOC ---
Exam Note: Jassi Note: This note is a late entry for 08/21/2020 covers elements not covered in my initial note. Subjective: The patient was reviewed on telehealth rounds in the evening of 08/21/2020 with Alexander HOLLINGSWORTH. Discussed with nursing staff, reviewed the chart. He slept 7-1/4 hours previous night. Overall the patient is interactive and pleasant. Review of Systems: No CV, , pulmonary, eye system symptoms on review. He does complain of some back pain, better with Voltaren gel. Mental Status Exam: The patient is reasonably oriented. He is pleasant, verbal, interactive. Abstraction is fair. Computation impaired. Language function intact. Attention span is fair. Mood and affect withdrawn. No suic idal or homicidal ideation. Laboratory Data: Reviewed. Impression: Bipolar disorder unspecified. Anxiety disorder unspecified. Impulse control disorder. Plan: No change from initial note. Assessment: Vital Signs/I&O: Vital Signs Date Time Temp Pulse Resp B/P (MAP) Pulse Ox O2 Delivery O2 Flow Rate FiO2 08/22/20 08:18 67 129/79 08/22/20 06:08 97.2 16 94 Room Air I & O 08/21/20 08/21/20 08/22/20 15:00 23:00 07:00 Intake Total 720 ml 600 ml Balance 720 ml 600 ml Labs: Laboratory Tests Test 08/22/20 07:16 White Blood Count 6.0 x10^3/uL (4.0-11.0) Red Blood Count 4.38 x10^6/uL (4.30-5.70) Hemoglobin 13.4 g/dL (13.0-17.5) Hematocrit 39.7 % (39.0-53.0) Mean Corpuscular Volume 91 fL (79-100) Mean Corpuscular Hemoglobin 31 pg (25-35) Mean Corpuscular Hemoglobin Concent 34 g/dL (31-37) Red Cell Distribution Width 13.2 % (11.5-14.5) Platelet Count 307 x10^3/uL (140-400) Sodium Level 139 mmol/L (136-145) Potassium Level 4.2 mmol/L (3.5-5.1) Chloride Level 104 mmol/L (98-107) Carbon Dioxide Level 29 mmol/L (21-32) Anion Gap 6 (6-14) Blood Urea Nitrogen 17 mg/dL (8-26) Creatinine 0.9 mg/dL (0.7-1.3) Estimated GFR (Cockcroft-Gault) 83.2 BUN/Creatinine Ratio 19 (6-20) Glucose Level 97 mg/dL (70-99) Calcium Level 8.8 mg/dL (8.5-10.1) Total Bilirubin 0.3 mg/dL (0.2-1.0) Aspartate Amino Transferase (AST) 28 U/L (15-37) Alanine Aminotransferase (ALT) 51 U/L (16-63) Alkaline Phosphatase 164 U/L (46-116) H Total Protein 6.9 g/dL (6.4-8.2) Albumin 3.4 g/dL (3.4-5.0) Albumin/Globulin Ratio 1.0 (1.0-1.7) Current Medications: Meds: Laboratory Tests Test 08/22/20 07:16 White Blood Count 6.0 x10^3/uL Red Blood Count 4.38 x10^6/uL Hemoglobin 13.4 g/dL Hematocrit 39.7 % Mean Corpuscular Volume 91 fL Mean Corpuscular Hemoglobin 31 pg Mean Corpuscular Hemoglobin Concent 34 g/dL Red Cell Distribution Width 13.2 % Platelet Count 307 x10^3/uL Sodium Level 139 mmol/L Potassium Level 4.2 mmol/L Chloride Level 104 mmol/L Carbon Dioxide Level 29 mmol/L Anion Gap 6 Blood Urea Nitrogen 17 mg/dL Creatinine 0.9 mg/dL Estimated GFR (Cockcroft-Gault) 83.2 BUN/Creatinine Ratio 19 Glucose Level 97 mg/dL Calcium Level 8.8 mg/dL Total Bilirubin 0.3 mg/dL Aspartate Amino Transf (AST/SGOT) 28 U/L Alanine Aminotransferase (ALT/SGPT) 51 U/L Alkaline Phosphatase 164 U/L Total Protein 6.9 g/dL Albumin 3.4 g/dL Albumin/Globulin Ratio 1.0 Current Medications Medications (Trade) Dose Ordered Sig/Vicente Route PRN Reason Start Time Stop Time Status Last Admin Dose Admin Acetaminophen (Tylenol) 650 mg PRN Q6HRS PRN PO MILD PAIN / TEMP > 100.3'F 06/05/20 16:45 08/20/20 15:27 DC 08/20/20 08:58 Multi-Ingredient Ointment (Analgesic [place]) 1 martina PRN QID PRN TP MUSCLE PAIN 06/05/20 16:45 Cancel Al Hydroxide/Mg Hydroxide (Mylanta Plus Xs) 15 ml PRN AFTMEALHC PRN PO DYSPEPSIA 06/05/20 16:45 06/06/20 17:08 DC Magnesium Hydroxide (Milk Of Magnesia) 2,400 mg PRN QHS PRN PO CONSTIPATION 06/05/20 16:45 Acetaminophen (Tylenol) 1,000 mg BID PO 06/05/20 21:00 06/25/20 12:00 DC 06/23/20 09:08 Amlodipine Besylate (Norvasc) 5 mg DAILY PO 06/06/20 09:00 08/22/20 08:17 Cetirizine HCl (ZyrTEC) 10 mg PRN DAILY PRN PO ALLERGIES 06/05/20 18:15 07/29/20 12:21 Cyclobenzaprine HCl (Flexeril) 10 mg PRN QHS PRN PO MUSCLE SPASMS 06/05/20 18:15 08/21/20 19:58 Diclofenac Sodium (Voltaren) 1 martina PRN Q6HRS PRN TP MUSCLE SKELETAL PAIN 06/05/20 18:15 08/20/20 20:01 Divalproex Sodium (Depakote Er) 1,000 mg QHS PO 06/05/20 21:00 06/07/20 11:57 DC 06/06/20 20:47 Al Hydroxide/Mg Hydroxide (Mylanta Plus Xs) 15 ml PRN AFTMEALHC PRN PO DYSPEPSIA 06/05/20 18:15 Metoprolol Succinate (Toprol Xl) 25 mg DAILY PO 06/06/20 09:00 08/22/20 08:18 Trazodone HCl (Desyrel) 50 mg QHS PO 06/05/20 21:00 08/21/20 19:57 Calcium Carbonate/ Glycine (Tums) 500 mg TIDAFTMEAL PO 06/05/20 18:45 08/22/20 08:18 Magnesium Hydroxide (Milk Of Magnesia) 2,400 mg PRN QHS PRN PO CONSTIPATION 06/05/20 18:45 06/06/20 17:08 DC Multi-Ingredient Ointment (Analgesic [place]) 1 martina PRN QID PRN TP MUSCLE PAIN 06/05/20 18:45 06/06/20 17:09 DC Divalproex Sodium (Depakote Er) 1,250 mg QHS PO 06/07/20 21:00 06/15/20 19:47 DC 06/14/20 20:16 Vitamin D (Vitamin D3) 50,000 unit WEEKLY PO 06/07/20 17:15 08/16/20 08:39 Atorvastatin Calcium (Lipitor) 10 mg QHS PO 06/07/20 21:00 08/21/20 19:57 Quetiapine Fumarate (SEROquel) 25 mg QHS PO 06/09/20 21:00 08/21/20 19:57 Divalproex Sodium (Depakote Er) 250 mg QHS PO 06/15/20 21:00 06/21/20 17:39 DC 06/20/20 20:20 Divalproex Sodium (Depakote Er) 1,000 mg QHS PO 06/15/20 21:00 06/21/20 17:39 DC 06/20/20 20:21 Gabapentin (Neurontin) 300 mg BID PO 06/21/20 21:00 08/22/20 08:17 Acetaminophen/ Hydrocodone Bitart (Lortab 5/325) 1 tab PRN Q6HRS PRN PO PAIN 08/17/20 17:15 08/21/20 19:59 Acetaminophen (Tylenol) 1,300 mg PRN Q8HRS PRN PO MILD PAIN / TEMP > 100.3'F 08/20/20 15:30 I have reviewed the current psychotropics carefully including drug interactions. Risk benefit ratio favors no change other than as noted in my dictated progress note. Diagnosis: Problems: (1) Bipolar disorder, unspecified (2) Anxiety disorder, unspecified (3) Impulse control disorder OBDULIA MOLINA MD Aug 22, 2020 08:21
[2020-08-22 16:04] VITALS: BP 131/76
[2020-08-22] MEDS: QUEtiapine 25 MG TABLET. PO SCH (20:01)
[2020-08-22] MEDS: traZODone 50 MG TABLET. PO SCH (20:01)
[2020-08-22] MEDS: ATORVASTATIN CALCIUM 10 MG TABLET. PO SCH (20:01)
[2020-08-22] MEDS: CYCLOBENZAPRINE 10 MG TABLET. PO PRN (20:03)
[2020-08-22] MEDS: HYDROcodone/APAP 5/325MG 1 TAB TABLET PO PRN (20:03)
--- NOTE | 2020-08-22 21:02 | PDOC ---
Exam Note: Jassi Note: Please also refer to the separate dictated note~for this date of service dictated separately.~Patient seen individually. Discussed the patient with Nursing staff reviewed the chart.~Reviewed interim history and current functioning. Reviewed vital signs,~Labs/ Radiology~and current medications noted below. Continue current treatment with the changes noted in the dictated addendum note Assessment: Vital Signs/I&O: Vital Signs Date Time Temp Pulse Resp B/P (MAP) Pulse Ox O2 Delivery O2 Flow Rate FiO2 08/22/20 20:03 93 08/22/20 16:04 98.1 79 18 131/76 (94) 08/22/20 06:08 Room Air I & O 08/21/20 08/21/20 08/22/20 15:00 23:00 07:00 Intake Total 720 ml 600 ml Balance 720 ml 600 ml Labs: Laboratory Tests Test 08/22/20 07:16 White Blood Count 6.0 x10^3/uL (4.0-11.0) Red Blood Count 4.38 x10^6/uL (4.30-5.70) Hemoglobin 13.4 g/dL (13.0-17.5) Hematocrit 39.7 % (39.0-53.0) Mean Corpuscular Volume 91 fL (79-100) Mean Corpuscular Hemoglobin 31 pg (25-35) Mean Corpuscular Hemoglobin Concent 34 g/dL (31-37) Red Cell Distribution Width 13.2 % (11.5-14.5) Platelet Count 307 x10^3/uL (140-400) Sodium Level 139 mmol/L (136-145) Potassium Level 4.2 mmol/L (3.5-5.1) Chloride Level 104 mmol/L (98-107) Carbon Dioxide Level 29 mmol/L (21-32) Anion Gap 6 (6-14) Blood Urea Nitrogen 17 mg/dL (8-26) Creatinine 0.9 mg/dL (0.7-1.3) Estimated GFR (Cockcroft-Gault) 83.2 BUN/Creatinine Ratio 19 (6-20) Glucose Level 97 mg/dL (70-99) Calcium Level 8.8 mg/dL (8.5-10.1) Total Bilirubin 0.3 mg/dL (0.2-1.0) Aspartate Amino Transferase (AST) 28 U/L (15-37) Alanine Aminotransferase (ALT) 51 U/L (16-63) Alkaline Phosphatase 164 U/L (46-116) H Total Protein 6.9 g/dL (6.4-8.2) Albumin 3.4 g/dL (3.4-5.0) Albumin/Globulin Ratio 1.0 (1.0-1.7) Current Medications: Meds: Laboratory Tests Test 08/22/20 07:16 White Blood Count 6.0 x10^3/uL Red Blood Count 4.38 x10^6/uL Hemoglobin 13.4 g/dL Hematocrit 39.7 % Mean Corpuscular Volume 91 fL Mean Corpuscular Hemoglobin 31 pg Mean Corpuscular Hemoglobin Concent 34 g/dL Red Cell Distribution Width 13.2 % Platelet Count 307 x10^3/uL Sodium Level 139 mmol/L Potassium Level 4.2 mmol/L Chloride Level 104 mmol/L Carbon Dioxide Level 29 mmol/L Anion Gap 6 Blood Urea Nitrogen 17 mg/dL Creatinine 0.9 mg/dL Estimated GFR (Cockcroft-Gault) 83.2 BUN/Creatinine Ratio 19 Glucose Level 97 mg/dL Calcium Level 8.8 mg/dL Total Bilirubin 0.3 mg/dL Aspartate Amino Transf (AST/SGOT) 28 U/L Alanine Aminotransferase (ALT/SGPT) 51 U/L Alkaline Phosphatase 164 U/L Total Protein 6.9 g/dL Albumin 3.4 g/dL Albumin/Globulin Ratio 1.0 Current Medications Medications (Trade) Dose Ordered Sig/Vicente Route PRN Reason Start Time Stop Time Status Last Admin Dose Admin Acetaminophen (Tylenol) 650 mg PRN Q6HRS PRN PO MILD PAIN / TEMP > 100.3'F 06/05/20 16:45 08/20/20 15:27 DC 08/20/20 08:58 Multi-Ingredient Ointment (Analgesic [place]) 1 martina PRN QID PRN TP MUSCLE PAIN 06/05/20 16:45 Cancel Al Hydroxide/Mg Hydroxide (Mylanta Plus Xs) 15 ml PRN AFTMEALHC PRN PO DYSPEPSIA 06/05/20 16:45 06/06/20 17:08 DC Magnesium Hydroxide (Milk Of Magnesia) 2,400 mg PRN QHS PRN PO CONSTIPATION 06/05/20 16:45 Acetaminophen (Tylenol) 1,000 mg BID PO 06/05/20 21:00 06/25/20 12:00 DC 06/23/20 09:08 Amlodipine Besylate (Norvasc) 5 mg DAILY PO 06/06/20 09:00 08/22/20 08:17 Cetirizine HCl (ZyrTEC) 10 mg PRN DAILY PRN PO ALLERGIES 06/05/20 18:15 07/29/20 12:21 Cyclobenzaprine HCl (Flexeril) 10 mg PRN QHS PRN PO MUSCLE SPASMS 06/05/20 18:15 08/22/20 20:03 Diclofenac Sodium (Voltaren) 1 martina PRN Q6HRS PRN TP MUSCLE SKELETAL PAIN 06/05/20 18:15 08/20/20 20:01 Divalproex Sodium (Depakote Er) 1,000 mg QHS PO 06/05/20 21:00 06/07/20 11:57 DC 06/06/20 20:47 Al Hydroxide/Mg Hydroxide (Mylanta Plus Xs) 15 ml PRN AFTMEALHC PRN PO DYSPEPSIA 06/05/20 18:15 Metoprolol Succinate (Toprol Xl) 25 mg DAILY PO 06/06/20 09:00 08/22/20 08:18 Trazodone HCl (Desyrel) 50 mg QHS PO 06/05/20 21:00 08/22/20 20:01 Calcium Carbonate/ Glycine (Tums) 500 mg TIDAFTMEAL PO 06/05/20 18:45 08/22/20 16:46 Magnesium Hydroxide (Milk Of Magnesia) 2,400 mg PRN QHS PRN PO CONSTIPATION 06/05/20 18:45 06/06/20 17:08 DC Multi-Ingredient Ointment (Analgesic Warren) 1 martina PRN QID PRN TP MUSCLE PAIN 06/05/20 18:45 06/06/20 17:09 DC Divalproex Sodium (Depakote Er) 1,250 mg QHS PO 06/07/20 21:00 06/15/20 19:47 DC 06/14/20 20:16 Vitamin D (Vitamin D3) 50,000 unit WEEKLY PO 06/07/20 17:15 08/16/20 08:39 Atorvastatin Calcium (Lipitor) 10 mg QHS PO 06/07/20 21:00 08/22/20 20:01 Quetiapine Fumarate (SEROquel) 25 mg QHS PO 06/09/20 21:00 08/22/20 20:01 Divalproex Sodium (Depakote Er) 250 mg QHS PO 06/15/20 21:00 06/21/20 17:39 DC 06/20/20 20:20 Divalproex Sodium (Depakote Er) 1,000 mg QHS PO 06/15/20 21:00 06/21/20 17:39 DC 06/20/20 20:21 Gabapentin (Neurontin) 300 mg BID PO 06/21/20 21:00 08/22/20 20:03 Acetaminophen/ Hydrocodone Bitart (Lortab 5/325) 1 tab PRN Q6HRS PRN PO PAIN 08/17/20 17:15 08/22/20 20:03 Acetaminophen (Tylenol) 1,300 mg PRN Q8HRS PRN PO MILD PAIN / TEMP > 100.3'F 08/20/20 15:30 I have reviewed the current psychotropics carefully including drug interactions. Risk benefit ratio favors no change other than as noted in my dictated progress note. Diagnosis: Problems: (1) Bipolar disorder, unspecified (2) Impulse control disorder, unspecified (3) Anxiety disorder, unspecified OBDULIA MOLINA MD Aug 22, 2020 21:02
[2020-08-23 05:47] VITALS: BP 129/70
[2020-08-23] MEDS: CALCIUM CARBONATE 500 MG TAB.CHEW PO SCH ×3 (07:26→18:00)
[2020-08-23] MEDS: GABAPENTIN 300 MG CAPSULE. PO SCH ×2 (07:26→19:57)
[2020-08-23] MEDS: amLODIPine BESYLATE 10 MG TABLET PO SCH (07:27)
[2020-08-23] MEDS: METOPROLOL SUCC 24HR ER 25 MG TAB.ER.24H. PO SCH (07:28)
[2020-08-23] MEDS: CYCLOBENZAPRINE 10 MG TABLET. PO PRN ×2 (07:29→19:57)
[2020-08-23] MEDS: HYDROcodone/APAP 5/325MG 1 TAB TABLET PO PRN ×2 (07:29→19:57)
[2020-08-23] MEDS: CHOLECALCIFEROL (VITAMIN D3) 50,000 UNIT CAPSULE PO SCH (07:29)
[2020-08-23] MEDS: DICLOFENAC SODIUM 1% TOPICAL GEL 100GM TUBE. TP PRN ×3 (07:30→21:16)
--- NOTE | 2020-08-23 07:45 | PDOC ---
Exam Note: Jassi Note: This note is a late entry for 08/22/2020 covers elements not covered in my initial note. Subjective: The patient was reviewed on telehealth rounds in the evening of 08/22/2020 with Alexander HOLLINGSWORTH. Discussed with nursing staff, reviewed the chart. He slept 8 hours previous night. Overall the patient has had a good day. Towards the evenings he becomes extremely obsessive about his medications. I addressed this with him. Review of Systems: No CV, , pulmonary, eye system symptoms on review. I specifically questioned him on his back pain and knee pain and he denies having any. Mental Status Exam: The patient is reasonably oriented. He is pleasant, verbal, interactive. Abstraction is fair. Computation impaired. Language function intact. Attention span is fair. Mood and affect withdrawn. No suicidal or homicidal ideation. Laboratory Data: Reviewed. Impression: Bipolar disorder unspecified. Anxiety disorder unspecified. Impulse control disorder. Plan: No change from initial note. Assessment: Vital Signs/I&O: Vital Signs Date Time Temp Pulse Resp B/P (MAP) Pulse Ox O2 Delivery O2 Flow Rate FiO2 08/23/20 07:29 95 08/23/20 07:28 63 129/70 08/23/20 05:47 97.2 18 08/22/20 06:08 Room Air I & O 08/22/20 08/22/20 08/23/20 15:00 23:00 07:00 Intake Total 720 ml 360 ml Balance 720 ml 360 ml Current Medications: Meds: Current Medications Medications (Trade) Dose Ordered Sig/Vicente Route PRN Reason Start Time Stop Time Status Last Admin Dose Admin Acetaminophen (Tylenol) 650 mg PRN Q6HRS PRN PO MILD PAIN / TEMP > 100.3'F 06/05/20 16:45 08/20/20 15:27 DC 08/20/20 08:58 Multi-Ingredient Ointment (Analgesic [place]) 1 martina PRN QID PRN TP MUSCLE PAIN 06/05/20 16:45 Cancel Al Hydroxide/Mg Hydroxide (Mylanta Plus Xs) 15 ml PRN AFTMEALHC PRN PO DYSPEPSIA 06/05/20 16:45 06/06/20 17:08 DC Magnesium Hydroxide (Milk Of Magnesia) 2,400 mg PRN QHS PRN PO CONSTIPATION 06/05/20 16:45 Acetaminophen (Tylenol) 1,000 mg BID PO 06/05/20 21:00 06/25/20 12:00 DC 06/23/20 09:08 Amlodipine Besylate (Norvasc) 5 mg DAILY PO 06/06/20 09:00 08/23/20 07:27 Cetirizine HCl (ZyrTEC) 10 mg PRN DAILY PRN PO ALLERGIES 06/05/20 18:15 07/29/20 12:21 Cyclobenzaprine HCl (Flexeril) 10 mg PRN QHS PRN PO MUSCLE SPASMS 06/05/20 18:15 08/23/20 07:29 Diclofenac Sodium (Voltaren) 1 martina PRN Q6HRS PRN TP MUSCLE SKELETAL PAIN 06/05/20 18:15 08/23/20 07:30 Divalproex Sodium (Depakote Er) 1,000 mg QHS PO 06/05/20 21:00 06/07/20 11:57 DC 06/06/20 20:47 Al Hydroxide/Mg Hydroxide (Mylanta Plus Xs) 15 ml PRN AFTMEALHC PRN PO DYSPEPSIA 06/05/20 18:15 Metoprolol Succinate (Toprol Xl) 25 mg DAILY PO 06/06/20 09:00 08/23/20 07:28 Trazodone HCl (Desyrel) 50 mg QHS PO 06/05/20 21:00 08/22/20 20:01 Calcium Carbonate/ Glycine (Tums) 500 mg TIDAFTMEAL PO 06/05/20 18:45 08/23/20 07:26 Magnesium Hydroxide (Milk Of Magnesia) 2,400 mg PRN QHS PRN PO CONSTIPATION 06/05/20 18:45 06/06/20 17:08 DC Multi-Ingredient Ointment (Analgesic [place]) 1 martina PRN QID PRN TP MUSCLE PAIN 06/05/20 18:45 06/06/20 17:09 DC Divalproex Sodium (Depakote Er) 1,250 mg QHS PO 06/07/20 21:00 06/15/20 19:47 DC 06/14/20 20:16 Vitamin D (Vitamin D3) 50,000 unit WEEKLY PO 06/07/20 17:15 08/23/20 07:29 Atorvastatin Calcium (Lipitor) 10 mg QHS PO 06/07/20 21:00 08/22/20 20:01 Quetiapine Fumarate (SEROquel) 25 mg QHS PO 06/09/20 21:00 08/22/20 20:01 Divalproex Sodium (Depakote Er) 250 mg QHS PO 06/15/20 21:00 06/21/20 17:39 DC 06/20/20 20:20 Divalproex Sodium (Depakote Er) 1,000 mg QHS PO 06/15/20 21:00 06/21/20 17:39 DC 06/20/20 20:21 Gabapentin (Neurontin) 300 mg BID PO 06/21/20 21:00 08/23/20 07:26 Acetaminophen/ Hydrocodone Bitart (Lortab 5/325) 1 tab PRN Q6HRS PRN PO PAIN 08/17/20 17:15 08/23/20 07:29 Acetaminophen (Tylenol) 1,300 mg PRN Q8HRS PRN PO MILD PAIN / TEMP > 100.3'F 08/20/20 15:30 I have reviewed the current psychotropics carefully including drug interactions. Risk benefit ratio favors no change other than as noted in my dictated progress note. Diagnosis: Problems: (1) Schizoaffective disorder, bipolar type (2) Impulse control disorder, unspecified (3) Bipolar disorder, unspecified (4) Anxiety disorder, unspecified (5) Impulse control disorder OBDULIA MOLINA MD Aug 23, 2020 07:44
[2020-08-23 15:58] VITALS: BP 120/55
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
[2020-08-23] MEDS: QUEtiapine 25 MG TABLET. PO SCH (19:57)
[2020-08-23] MEDS: traZODone 50 MG TABLET. PO SCH (19:57)
[2020-08-23] MEDS: ATORVASTATIN CALCIUM 10 MG TABLET. PO SCH (19:58)
--- NOTE | 2020-08-23 21:09 | PDOC ---
Exam Note: Jassi Note: Please also refer to the separate dictated note~for this date of service dictated separately.~Patient seen individually. Discussed the patient with Nursing staff reviewed the chart.~Reviewed interim history and current functioning. Reviewed vital signs,~Labs/ Radiology~and current medications noted below. Continue current treatment with the changes noted in the dictated addendum note Assessment: Vital Signs/I&O: Vital Signs Date Time Temp Pulse Resp B/P (MAP) Pulse Ox O2 Delivery O2 Flow Rate FiO2 08/23/20 19:57 95 08/23/20 15:58 97.8 76 16 120/55 (76) 08/22/20 06:08 Room Air I & O 08/22/20 08/22/20 08/23/20 15:00 23:00 07:00 Intake Total 720 ml 360 ml Balance 720 ml 360 ml Current Medications: Meds: Current Medications Medications (Trade) Dose Ordered Sig/Vicente Route PRN Reason Start Time Stop Time Status Last Admin Dose Admin Acetaminophen (Tylenol) 650 mg PRN Q6HRS PRN PO MILD PAIN / TEMP > 100.3'F 06/05/20 16:45 08/20/20 15:27 DC 08/20/20 08:58 Multi-Ingredient Ointment (Analgesic [place]) 1 martina PRN QID PRN TP MUSCLE PAIN 06/05/20 16:45 Cancel Al Hydroxide/Mg Hydroxide (Mylanta Plus Xs) 15 ml PRN AFTMEALHC PRN PO DYSPEPSIA 06/05/20 16:45 06/06/20 17:08 DC Magnesium Hydroxide (Milk Of Magnesia) 2,400 mg PRN QHS PRN PO CONSTIPATION 06/05/20 16:45 Acetaminophen (Tylenol) 1,000 mg BID PO 06/05/20 21:00 06/25/20 12:00 DC 06/23/20 09:08 Amlodipine Besylate (Norvasc) 5 mg DAILY PO 06/06/20 09:00 08/23/20 07:27 Cetirizine HCl (ZyrTEC) 10 mg PRN DAILY PRN PO ALLERGIES 06/05/20 18:15 07/29/20 12:21 Cyclobenzaprine HCl (Flexeril) 10 mg PRN QHS PRN PO MUSCLE SPASMS 06/05/20 18:15 08/23/20 19:57 Diclofenac Sodium (Voltaren) 1 martina PRN Q6HRS PRN TP MUSCLE SKELETAL PAIN 06/05/20 18:15 08/23/20 15:15 Divalproex Sodium (Depakote Er) 1,000 mg QHS PO 06/05/20 21:00 06/07/20 11:57 DC 06/06/20 20:47 Al Hydroxide/Mg Hydroxide (Mylanta Plus Xs) 15 ml PRN AFTMEALHC PRN PO DYSPEPSIA 06/05/20 18:15 Metoprolol Succinate (Toprol Xl) 25 mg DAILY PO 06/06/20 09:00 08/23/20 07:28 Trazodone HCl (Desyrel) 50 mg QHS PO 06/05/20 21:00 08/23/20 19:57 Calcium Carbonate/ Glycine (Tums) 500 mg TIDAFTMEAL PO 06/05/20 18:45 08/23/20 18:00 Magnesium Hydroxide (Milk Of Magnesia) 2,400 mg PRN QHS PRN PO CONSTIPATION 06/05/20 18:45 06/06/20 17:08 DC Multi-Ingredient Ointment (Analgesic [place]) 1 martina PRN QID PRN TP MUSCLE PAIN 06/05/20 18:45 06/06/20 17:09 DC Divalproex Sodium (Depakote Er) 1,250 mg QHS PO 06/07/20 21:00 06/15/20 19:47 DC 06/14/20 20:16 Vitamin D (Vitamin D3) 50,000 unit WEEKLY PO 06/07/20 17:15 08/23/20 07:29 Atorvastatin Calcium (Lipitor) 10 mg QHS PO 06/07/20 21:00 08/23/20 19:58 Quetiapine Fumarate (SEROquel) 25 mg QHS PO 06/09/20 21:00 08/23/20 19:57 Divalproex Sodium (Depakote Er) 250 mg QHS PO 06/15/20 21:00 06/21/20 17:39 DC 06/20/20 20:20 Divalproex Sodium (Depakote Er) 1,000 mg QHS PO 06/15/20 21:00 06/21/20 17:39 DC 06/20/20 20:21 Gabapentin (Neurontin) 300 mg BID PO 06/21/20 21:00 08/23/20 19:57 Acetaminophen/ Hydrocodone Bitart (Lortab 5/325) 1 tab PRN Q6HRS PRN PO PAIN 08/17/20 17:15 08/23/20 19:57 Acetaminophen (Tylenol) 1,300 mg PRN Q8HRS PRN PO MILD PAIN / TEMP > 100.3'F 08/20/20 15:30 I have reviewed the current psychotropics carefully including drug interactions. Risk benefit ratio favors no change other than as noted in my dictated progress note. Diagnosis: Problems: (1) Bipolar disorder, unspecified (2) Impulse control disorder, unspecified (3) Anxiety disorder OBDULIA MOLINA MD Aug 23, 2020 21:09
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
[2020-08-24 05:38] VITALS: BP 115/65
--- NOTE | 2020-08-24 08:22 | PDOC ---
Exam Note: Jassi Note: This note is a late entry for 08/23/2020 covers elements not covered in my initial note. I have also dictated an updated psychiatric evaluation/history on the patient under dictation # [id number]. Subjective: The patient was reviewed on telehealth rounds in the morning of 08/23/2020 for a treatment team meeting with Samra Forde and Shirin (medical social consultant), Rosana, activity therapy and Tnenille RN. Discussed with nursing staff, reviewed the chart. Sleeping average 8 hours. Appetite 100%. He is frequently wanting pain medications and gel Voltaren gel for his back and muscle relaxer. He gets somewhat obsessed about this but otherwise very appropriate. Review of Systems: No CV, , pulmonary, eye system symptoms on review. Mental Status Exam: The patient is reasonably oriented. He is pleasant, verba l, interactive. Abstraction is fair. Computation impaired. Language function intact. Attention span is fair. Mood and affect withdrawn. No suicidal or homicidal ideation. Laboratory Data: Reviewed. Impression: Bipolar disorder unspecified. Anxiety disorder unspecified. Impulse control disorder. Plan: Continue current psychotropics. Adjust further as clinically indicated. Assessment: Vital Signs/I&O: Vital Signs Date Time Temp Pulse Resp B/P (MAP) Pulse Ox O2 Delivery O2 Flow Rate FiO2 08/24/20 05:38 97.9 58 18 115/65 (82) 95 Room Air I & O 08/23/20 08/23/20 08/24/20 15:00 23:00 07:00 Intake Total 960 ml 600 ml Balance 960 ml 600 ml Current Medications: Meds: Current Medications Medications (Trade) Dose Ordered Sig/Vicente Route PRN Reason Start Time Stop Time Status Last Admin Dose Admin Acetaminophen (Tylenol) 650 mg PRN Q6HRS PRN PO MILD PAIN / TEMP > 100.3'F 06/05/20 16:45 08/20/20 15:27 DC 08/20/20 08:58 Multi-Ingredient Ointment (Analgesic [place]) 1 martina PRN QID PRN TP MUSCLE PAIN 06/05/20 16:45 Cancel Al Hydroxide/Mg Hydroxide (Mylanta Plus Xs) 15 ml PRN AFTMEALHC PRN PO DYSPEPSIA 06/05/20 16:45 06/06/20 17:08 DC Magnesium Hydroxide (Milk Of Magnesia) 2,400 mg PRN QHS PRN PO CONSTIPATION 06/05/20 16:45 Acetaminophen (Tylenol) 1,000 mg BID PO 06/05/20 21:00 06/25/20 12:00 DC 06/23/20 09:08 Amlodipine Besylate (Norvasc) 5 mg DAILY PO 06/06/20 09:00 08/23/20 07:27 Cetirizine HCl (ZyrTEC) 10 mg PRN DAILY PRN PO ALLERGIES 06/05/20 18:15 07/29/20 12:21 Cyclobenzaprine HCl (Flexeril) 10 mg PRN QHS PRN PO MUSCLE SPASMS 06/05/20 18:15 08/23/20 19:57 Diclofenac Sodium (Voltaren) 1 martina PRN Q6HRS PRN TP MUSCLE SKELETAL PAIN 06/05/20 18:15 08/23/20 21:16 Divalproex Sodium (Depakote Er) 1,000 mg QHS PO 06/05/20 21:00 06/07/20 11:57 DC 06/06/20 20:47 Al Hydroxide/Mg Hydroxide (Mylanta Plus Xs) 15 ml PRN AFTMEALHC PRN PO DYSPEPSIA 06/05/20 18:15 Metoprolol Succinate (Toprol Xl) 25 mg DAILY PO 06/06/20 09:00 08/23/20 07:28 Trazodone HCl (Desyrel) 50 mg QHS PO 06/05/20 21:00 08/23/20 19:57 Calcium Carbonate/ Glycine (Tums) 500 mg TIDAFTMEAL PO 06/05/20 18:45 08/23/20 18:00 Magnesium Hydroxide (Milk Of Magnesia) 2,400 mg PRN QHS PRN PO CONSTIPATION 06/05/20 18:45 06/06/20 17:08 DC Multi-Ingredient Ointment (Analgesic [place]) 1 martina PRN QID PRN TP MUSCLE PAIN 06/05/20 18:45 06/06/20 17:09 DC Divalproex Sodium (Depakote Er) 1,250 mg QHS PO 06/07/20 21:00 06/15/20 19:47 DC 06/14/20 20:16 Vitamin D (Vitamin D3) 50,000 unit WEEKLY PO 06/07/20 17:15 08/23/20 07:29 Atorvastatin Calcium (Lipitor) 10 mg QHS PO 06/07/20 21:00 08/23/20 19:58 Quetiapine Fumarate (SEROquel) 25 mg QHS PO 06/09/20 21:00 08/23/20 19:57 Divalproex Sodium (Depakote Er) 250 mg QHS PO 06/15/20 21:00 06/21/20 17:39 DC 06/20/20 20:20 Divalproex Sodium (Depakote Er) 1,000 mg QHS PO 06/15/20 21:00 06/21/20 17:39 DC 06/20/20 20:21 Gabapentin (Neurontin) 300 mg BID PO 06/21/20 21:00 08/23/20 19:57 Acetaminophen/ Hydrocodone Bitart (Lortab 5/325) 1 tab PRN Q6HRS PRN PO MOD-SEV PAIN 08/17/20 17:15 08/23/20 19:57 Acetaminophen (Tylenol) 1,300 mg PRN Q8HRS PRN PO MILD PAIN / TEMP > 100.3'F 08/20/20 15:30 I have reviewed the current psychotropics carefully including drug interactions. Risk benefit ratio favors no change other than as noted in my dictated progress note. Diagnosis: Problems: (1) Impulse control disorder, unspecified (2) Anxiety disorder, unspecified (3) Bipolar disorder, unspecified OBDULIA MOLINA MD Aug 24, 2020 08:22
[2020-08-24] MEDS: METOPROLOL SUCC 24HR ER 25 MG TAB.ER.24H. PO SCH (09:54)
[2020-08-24] MEDS: amLODIPine BESYLATE 10 MG TABLET PO SCH (09:55)
[2020-08-24] MEDS: GABAPENTIN 300 MG CAPSULE. PO SCH ×2 (09:55→20:18)
[2020-08-24] MEDS: CALCIUM CARBONATE 500 MG TAB.CHEW PO SCH ×3 (09:55→17:44)
[2020-08-24] MEDS: DICLOFENAC SODIUM 1% TOPICAL GEL 100GM TUBE. TP PRN ×2 (15:36→20:36)
[2020-08-24 15:39] VITALS: BP 133/82
[2020-08-24] MEDS: CYCLOBENZAPRINE 10 MG TABLET. PO PRN (20:18)
[2020-08-24] MEDS: traZODone 50 MG TABLET. PO SCH (20:18)
[2020-08-24] MEDS: HYDROcodone/APAP 5/325MG 1 TAB TABLET PO PRN (20:19)
[2020-08-24] MEDS: QUEtiapine 25 MG TABLET. PO SCH (20:19)
[2020-08-24] MEDS: ATORVASTATIN CALCIUM 10 MG TABLET. PO SCH (20:19)
--- NOTE | 2020-08-24 21:10 | PDOC ---
Exam Note: Jassi Note: Please also refer to the separate dictated note~for this date of service dictated separately.~Patient seen individually. Discussed the patient with Nursing staff reviewed the chart.~Reviewed interim history and current functioning. Reviewed vital signs,~Labs/ Radiology~and current medications noted below. Continue current treatment with the changes noted in the dictated addendum note Assessment: Vital Signs/I&O: Vital Signs Date Time Temp Pulse Resp B/P (MAP) Pulse Ox O2 Delivery O2 Flow Rate FiO2 08/24/20 20:19 97 08/24/20 15:39 97.7 81 18 133/82 (99) Room Air I & O 08/23/20 08/23/20 08/24/20 15:00 23:00 07:00 Intake Total 960 ml 600 ml Balance 960 ml 600 ml Current Medications: Meds: Current Medications Medications (Trade) Dose Ordered Sig/Vicente Route PRN Reason Start Time Stop Time Status Last Admin Dose Admin Acetaminophen (Tylenol) 650 mg PRN Q6HRS PRN PO MILD PAIN / TEMP > 100.3'F 06/05/20 16:45 08/20/20 15:27 DC 08/20/20 08:58 Multi-Ingredient Ointment (Analgesic [place]) 1 martina PRN QID PRN TP MUSCLE PAIN 06/05/20 16:45 Cancel Al Hydroxide/Mg Hydroxide (Mylanta Plus Xs) 15 ml PRN AFTMEALHC PRN PO DYSPEPSIA 06/05/20 16:45 06/06/20 17:08 DC Magnesium Hydroxide (Milk Of Magnesia) 2,400 mg PRN QHS PRN PO CONSTIPATION 06/05/20 16:45 Acetaminophen (Tylenol) 1,000 mg BID PO 06/05/20 21:00 06/25/20 12:00 DC 06/23/20 09:08 Amlodipine Besylate (Norvasc) 5 mg DAILY PO 06/06/20 09:00 08/24/20 09:55 Cetirizine HCl (ZyrTEC) 10 mg PRN DAILY PRN PO ALLERGIES 06/05/20 18:15 07/29/20 12:21 Cyclobenzaprine HCl (Flexeril) 10 mg PRN QHS PRN PO MUSCLE SPASMS 06/05/20 18:15 08/24/20 20:18 Diclofenac Sodium (Voltaren) 1 martina PRN Q6HRS PRN TP MUSCLE SKELETAL PAIN 06/05/20 18:15 08/24/20 20:36 Divalproex Sodium (Depakote Er) 1,000 mg QHS PO 06/05/20 21:00 06/07/20 11:57 DC 06/06/20 20:47 Al Hydroxide/Mg Hydroxide (Mylanta Plus Xs) 15 ml PRN AFTMEALHC PRN PO DYSPEPSIA 06/05/20 18:15 Metoprolol Succinate (Toprol Xl) 25 mg DAILY PO 06/06/20 09:00 08/24/20 09:54 Trazodone HCl (Desyrel) 50 mg QHS PO 06/05/20 21:00 08/24/20 20:18 Calcium Carbonate/ Glycine (Tums) 500 mg TIDAFTMEAL PO 06/05/20 18:45 08/24/20 17:44 Magnesium Hydroxide (Milk Of Magnesia) 2,400 mg PRN QHS PRN PO CONSTIPATION 06/05/20 18:45 06/06/20 17:08 DC Multi-Ingredient Ointment (Analgesic [place]) 1 martina PRN QID PRN TP MUSCLE PAIN 06/05/20 18:45 06/06/20 17:09 DC Divalproex Sodium (Depakote Er) 1,250 mg QHS PO 06/07/20 21:00 06/15/20 19:47 DC 06/14/20 20:16 Vitamin D (Vitamin D3) 50,000 unit WEEKLY PO 06/07/20 17:15 08/23/20 07:29 Atorvastatin Calcium (Lipitor) 10 mg QHS PO 06/07/20 21:00 08/24/20 20:19 Quetiapine Fumarate (SEROquel) 25 mg QHS PO 06/09/20 21:00 08/24/20 20:19 Divalproex Sodium (Depakote Er) 250 mg QHS PO 06/15/20 21:00 06/21/20 17:39 DC 06/20/20 20:20 Divalproex Sodium (Depakote Er) 1,000 mg QHS PO 06/15/20 21:00 06/21/20 17:39 DC 06/20/20 20:21 Gabapentin (Neurontin) 300 mg BID PO 06/21/20 21:00 08/24/20 20:18 Acetaminophen/ Hydrocodone Bitart (Lortab 5/325) 1 tab PRN Q6HRS PRN PO MOD-SEV PAIN 08/17/20 17:15 08/24/20 20:19 Acetaminophen (Tylenol) 1,300 mg PRN Q8HRS PRN PO MILD PAIN / TEMP > 100.3'F 08/20/20 15:30 I have reviewed the current psychotropics carefully including drug interactions. Risk benefit ratio favors no change other than as noted in my dictated progress note. Diagnosis: Problems: (1) Bipolar disorder, unspecified (2) Impulse control disorder (3) Anxiety disorder, unspecified OBDULIA MOLINA MD Aug 24, 2020 21:10
[2020-08-25 05:35] VITALS: BP 145/83
--- NOTE | 2020-08-25 08:08 | PDOC ---
Exam Note: Jassi Note: This note is a late entry for 08/24/2020 covers elements not covered in my initial note. Subjective: The patient was reviewed on telehealth rounds in the evening of 08/24/2020 with Niya HOLLINGSWORTH. Discussed with nursing staff, reviewed the chart. He slept 6-1/2 hours previous night. He was quite obsessive with his medications previous night, ruminating, fixated repeatedly after the nursing station. He has done better during the day today. No complains of back pain or knee pain. Review of Systems: No CV, , pulmonary, eye system symptoms on review. Mental Status Exam: The patient is alert and oriented. Speech is coherent. Abstraction is fair. Computation impaired. Language function intact. He was smiling and appropriate. Attention span is fair. Mood and affect is improved. No suicidal or homicidal ideation. Laboratory Data: Reviewed. Impression: Bipolar disorder unspecified. Anxiety disorder unspecified. Impulse control disorder. Plan: Continue current psychotropics. Assessment: Vital Signs/I&O: Vital Signs Date Time Temp Pulse Resp B/P (MAP) Pulse Ox O2 Delivery O2 Flow Rate FiO2 08/25/20 05:35 97.0 57 20 145/83 (103) 96 08/24/20 15:39 Room Air I & O 08/24/20 08/24/20 08/25/20 15:00 23:00 07:00 Intake Total 960 ml 600 ml Balance 960 ml 600 ml Current Medications: Meds: Current Medications Medications (Trade) Dose Ordered Sig/Vicente Route PRN Reason Start Time Stop Time Status Last Admin Dose Admin Acetaminophen (Tylenol) 650 mg PRN Q6HRS PRN PO MILD PAIN / TEMP > 100.3'F 06/05/20 16:45 08/20/20 15:27 DC 08/20/20 08:58 Multi-Ingredient Ointment (Analgesic [place]) 1 martina PRN QID PRN TP MUSCLE PAIN 06/05/20 16:45 Cancel Al Hydroxide/Mg Hydroxide (Mylanta Plus Xs) 15 ml PRN AFTMEALHC PRN PO DYSPEPSIA 06/05/20 16:45 06/06/20 17:08 DC Magnesium Hydroxide (Milk Of Magnesia) 2,400 mg PRN QHS PRN PO CONSTIPATION 06/05/20 16:45 Acetaminophen (Tylenol) 1,000 mg BID PO 10/24/20 21:00 06/25/20 12:00 DC 06/23/20 09:08 Amlodipine Besylate (Norvasc) 5 mg DAILY PO 06/06/20 09:00 08/24/20 09:55 Cetirizine HCl (ZyrTEC) 10 mg PRN DAILY PRN PO ALLERGIES 06/05/20 18:15 07/29/20 12:21 Cyclobenzaprine HCl (Flexeril) 10 mg PRN QHS PRN PO MUSCLE SPASMS 06/05/20 18:15 08/24/20 20:18 Diclofenac Sodium (Voltaren) 1 martina PRN Q6HRS PRN TP MUSCLE SKELETAL PAIN 06/05/20 18:15 08/24/20 20:36 Divalproex Sodium (Depakote Er) 1,000 mg QHS PO 06/05/20 21:00 06/07/20 11:57 DC 06/06/20 20:47 Al Hydroxide/Mg Hydroxide (Mylanta Plus Xs) 15 ml PRN AFTMEALHC PRN PO DYSPEPSIA 06/05/20 18:15 Metoprolol Succinate (Toprol Xl) 25 mg DAILY PO 06/06/20 09:00 08/24/20 09:54 Trazodone HCl (Desyrel) 50 mg QHS PO 06/05/20 21:00 08/24/20 20:18 Calcium Carbonate/ Glycine (Tums) 500 mg TIDAFTMEAL PO 06/05/20 18:45 08/24/20 17:44 Magnesium Hydroxide (Milk Of Magnesia) 2,400 mg PRN QHS PRN PO CONSTIPATION 06/05/20 18:45 06/06/20 17:08 DC Multi-Ingredient Ointment (Analgesic [place]) 1 martina PRN QID PRN TP MUSCLE PAIN 06/05/20 18:45 06/06/20 17:09 DC Divalproex Sodium (Depakote Er) 1,250 mg QHS PO 06/07/20 21:00 06/15/20 19:47 DC 06/14/20 20:16 Vitamin D (Vitamin D3) 50,000 unit WEEKLY PO 06/07/20 17:15 08/23/20 07:29 Atorvastatin Calcium (Lipitor) 10 mg QHS PO 06/07/20 21:00 08/24/20 20:19 Quetiapine Fumarate (SEROquel) 25 mg QHS PO 06/09/20 21:00 08/24/20 20:19 Divalproex Sodium (Depakote Er) 250 mg QHS PO 06/15/20 21:00 06/21/20 17:39 DC 06/20/20 20:20 Divalproex Sodium (Depakote Er) 1,000 mg QHS PO 06/15/20 21:00 06/21/20 17:39 DC 06/20/20 20:21 Gabapentin (Neurontin) 300 mg BID PO 06/21/20 21:00 08/24/20 20:18 Acetaminophen/ Hydrocodone Bitart (Lortab 5/325) 1 tab PRN Q6HRS PRN PO MOD-SEV PAIN 08/17/20 17:15 08/24/20 20:19 Acetaminophen (Tylenol) 1,300 mg PRN Q8HRS PRN PO MILD PAIN / TEMP > 100.3'F 08/20/20 15:30 I have reviewed the current psychotropics carefully including drug interactions. Risk benefit ratio favors no change other than as noted in my dictated progress note. Diagnosis: Problems: (1) Bipolar disorder, unspecified (2) Anxiety disorder (3) Impulse control disorder, unspecified OBDULIA MOLINA MD Aug 25, 2020 08:08
[2020-08-25] MEDS: GABAPENTIN 300 MG CAPSULE. PO SCH ×2 (09:26→19:53)
[2020-08-25] MEDS: METOPROLOL SUCC 24HR ER 25 MG TAB.ER.24H. PO SCH (09:26)
[2020-08-25] MEDS: CALCIUM CARBONATE 500 MG TAB.CHEW PO SCH ×3 (09:28→17:29)
[2020-08-25] MEDS: amLODIPine BESYLATE 10 MG TABLET PO SCH (09:28)
[2020-08-25 15:41] VITALS: BP 136/81
[2020-08-25] MEDS: traZODone 50 MG TABLET. PO SCH (19:52)
[2020-08-25] MEDS: CYCLOBENZAPRINE 10 MG TABLET. PO PRN (19:52)
[2020-08-25] MEDS: HYDROcodone/APAP 5/325MG 1 TAB TABLET PO PRN (19:52)
[2020-08-25] MEDS: ATORVASTATIN CALCIUM 10 MG TABLET. PO SCH (19:53)
[2020-08-25] MEDS: QUEtiapine 25 MG TABLET. PO SCH (19:53)
--- NOTE | 2020-08-25 21:16 | PDOC ---
Exam Note: Jassi Note: Please also refer to the separate dictated note~for this date of service dictated separately.~Patient seen individually. Discussed the patient with Nursing staff reviewed the chart.~Reviewed interim history and current functioning. Reviewed vital signs,~Labs/ Radiology~and current medications noted below. Continue current treatment with the changes noted in the dictated addendum note Assessment: Vital Signs/I&O: Vital Signs Date Time Temp Pulse Resp B/P (MAP) Pulse Ox O2 Delivery O2 Flow Rate FiO2 08/25/20 20:52 94 08/25/20 15:41 98.0 71 18 136/81 (99) 08/24/20 15:39 Room Air I & O 08/24/20 08/24/20 08/25/20 15:00 23:00 07:00 Intake Total 960 ml 600 ml Balance 960 ml 600 ml Current Medications: Meds: Current Medications Medications (Trade) Dose Ordered Sig/Vicente Route PRN Reason Start Time Stop Time Status Last Admin Dose Admin Acetaminophen (Tylenol) 650 mg PRN Q6HRS PRN PO MILD PAIN / TEMP > 100.3'F 06/05/20 16:45 08/20/20 15:27 DC 08/20/20 08:58 Multi-Ingredient Ointment (Analgesic [place]) 1 martina PRN QID PRN TP MUSCLE PAIN 06/05/20 16:45 Cancel Al Hydroxide/Mg Hydroxide (Mylanta Plus Xs) 15 ml PRN AFTMEALHC PRN PO DYSPEPSIA 06/05/20 16:45 06/06/20 17:08 DC Magnesium Hydroxide (Milk Of Magnesia) 2,400 mg PRN QHS PRN PO CONSTIPATION 06/05/20 16:45 Acetaminophen (Tylenol) 1,000 mg BID PO 06/05/20 21:00 06/25/20 12:00 DC 06/23/20 09:08 Amlodipine Besylate (Norvasc) 5 mg DAILY PO 06/06/20 09:00 08/25/20 09:28 Cetirizine HCl (ZyrTEC) 10 mg PRN DAILY PRN PO ALLERGIES 06/05/20 18:15 07/29/20 12:21 Cyclobenzaprine HCl (Flexeril) 10 mg PRN QHS PRN PO MUSCLE SPASMS 06/05/20 18:15 08/25/20 19:52 Diclofenac Sodium (Voltaren) 1 martina PRN Q6HRS PRN TP MUSCLE SKELETAL PAIN 06/05/20 18:15 08/24/20 20:36 Divalproex Sodium (Depakote Er) 1,000 mg QHS PO 06/05/20 21:00 06/07/20 11:57 DC 06/06/20 20:47 Al Hydroxide/Mg Hydroxide (Mylanta Plus Xs) 15 ml PRN AFTMEALHC PRN PO DYSPEPSIA 06/05/20 18:15 Metoprolol Succinate (Toprol Xl) 25 mg DAILY PO 06/06/20 09:00 08/25/20 09:26 Trazodone HCl (Desyrel) 50 mg QHS PO 06/05/20 21:00 08/25/20 19:52 Calcium Carbonate/ Glycine (Tums) 500 mg TIDAFTMEAL PO 06/05/20 18:45 08/25/20 17:29 Magnesium Hydroxide (Milk Of Magnesia) 2,400 mg PRN QHS PRN PO CONSTIPATION 06/05/20 18:45 06/06/20 17:08 DC Multi-Ingredient Ointment (Analgesic [place]) 1 martina PRN QID PRN TP MUSCLE PAIN 06/05/20 18:45 06/06/20 17:09 DC Divalproex Sodium (Depakote Er) 1,250 mg QHS PO 06/07/20 21:00 06/15/20 19:47 DC 06/14/20 20:16 Vitamin D (Vitamin D3) 50,000 unit WEEKLY PO 06/07/20 17:15 08/23/20 07:29 Atorvastatin Calcium (Lipitor) 10 mg QHS PO 06/07/20 21:00 08/25/20 19:53 Quetiapine Fumarate (SEROquel) 25 mg QHS PO 06/09/20 21:00 08/25/20 19:53 Divalproex Sodium (Depakote Er) 250 mg QHS PO 06/15/20 21:00 06/21/20 17:39 DC 06/20/20 20:20 Divalproex Sodium (Depakote Er) 1,000 mg QHS PO 06/15/20 21:00 06/21/20 17:39 DC 11/8/20 20:21 Gabapentin (Neurontin) 300 mg BID PO 06/21/20 21:00 08/25/20 19:53 Acetaminophen/ Hydrocodone Bitart (Lortab 5/325) 1 tab PRN Q6HRS PRN PO MOD-SEV PAIN 08/17/20 17:15 08/25/20 19:52 Acetaminophen (Tylenol) 1,300 mg PRN Q8HRS PRN PO MILD PAIN / TEMP > 100.3'F 08/20/20 15:30 I have reviewed the current psychotropics carefully including drug interactions. Risk benefit ratio favors no change other than as noted in my dictated progress note. Diagnosis: Problems: (1) Bipolar disorder, unspecified (2) Anxiety disorder, unspecified (3) Impulse control disorder OBDULIA MOLINA MD Aug 25, 2020 21:16
[2020-08-25] MEDS: DICLOFENAC SODIUM 1% TOPICAL GEL 100GM TUBE. TP PRN (21:38)
[2020-08-26 06:12] VITALS: BP 116/66
--- NOTE | 2020-08-26 08:14 | PDOC ---
Exam Note: Jassi Note: This note is a late entry for 08/25/2020 covers elements not covered in my initial note. Subjective: The patient was reviewed on telehealth rounds in the evening of 08/25/2020 with Niya HOLLINGSWORTH. Discussed with nursing staff, reviewed the chart. He slept 7 hours previous night. The patient was questionably delusional briefly last night but quite appropriate during the day today. He has been pleasant, cooperative. Review of Systems: No complaints of back pain, knee pain. No CV, , pulmonary, eye system symptoms on review. Mental Status Exam: The patient is alert and oriented. He is very pleasant, verbal, interactive. Speech is coherent. Abstraction is fair. Computation impaired. Language function intact. He was smiling and appropriate. Attention span is fair. Mood and affect is improved. No suicidal or homicidal ideation. Laboratory Data: Reviewed. Impression: Bipolar disorder unspecified. Anxiety disorder unspecified. Impulse control disorder. Plan: No change from initial note. Assessment: Vital Signs/I&O: Vital Signs Date Time Temp Pulse Resp B/P (MAP) Pulse Ox O2 Delivery O2 Flow Rate FiO2 08/26/20 06:12 97.3 64 16 116/66 (83) 94 Room Air I & O 08/25/20 08/25/20 08/26/20 15:00 23:00 07:00 Intake Total 680 ml 480 ml Balance 680 ml 480 ml Current Medications: Meds: Current Medications Medications (Trade) Dose Ordered Sig/Vicente Route PRN Reason Start Time Stop Time Status Last Admin Dose Admin Acetaminophen (Tylenol) 650 mg PRN Q6HRS PRN PO MILD PAIN / TEMP > 100.3'F 06/05/20 16:45 08/20/20 15:27 DC 08/20/20 08:58 Multi-Ingredient Ointment (Analgesic [place]) 1 martina PRN QID PRN TP MUSCLE PAIN 06/05/20 16:45 Cancel Al Hydroxide/Mg Hydroxide (Mylanta Plus Xs) 15 ml PRN AFTMEALHC PRN PO DYSPEPSIA 06/05/20 16:45 06/06/20 17:08 DC Magnesium Hydroxide (Milk Of Magnesia) 2,400 mg PRN QHS PRN PO CONSTIPATION 06/05/20 16:45 Acetaminophen (Tylenol) 1,000 mg BID PO 06/05/20 21:00 06/25/20 12:00 DC 06/23/20 09:08 Amlodipine Besylate (Norvasc) 5 mg DAILY PO 06/06/20 09:00 08/25/20 09:28 Cetirizine HCl (ZyrTEC) 10 mg PRN DAILY PRN PO ALLERGIES 06/05/20 18:15 07/29/20 12:21 Cyclobenzaprine HCl (Flexeril) 10 mg PRN QHS PRN PO MUSCLE SPASMS 06/05/20 18:15 08/25/20 19:52 Diclofenac Sodium (Voltaren) 1 martina PRN Q6HRS PRN TP MUSCLE SKELETAL PAIN 06/05/20 18:15 08/25/20 21:38 Divalproex Sodium (Depakote Er) 1,000 mg QHS PO 06/05/20 21:00 06/07/20 11:57 DC 06/06/20 20:47 Al Hydroxide/Mg Hydroxide (Mylanta Plus Xs) 15 ml PRN AFTMEALHC PRN PO DYSPEPSIA 06/05/20 18:15 Metoprolol Succinate (Toprol Xl) 25 mg DAILY PO 06/06/20 09:00 08/25/20 09:26 Trazodone HCl (Desyrel) 50 mg QHS PO 06/05/20 21:00 08/25/20 19:52 Calcium Carbonate/ Glycine (Tums) 500 mg TIDAFTMEAL PO 06/05/20 18:45 08/25/20 17:29 Magnesium Hydroxide (Milk Of Magnesia) 2,400 mg PRN QHS PRN PO CONSTIPATION 06/05/20 18:45 06/06/20 17:08 DC Multi-Ingredient Ointment (Analgesic [place]) 1 martina PRN QID PRN TP MUSCLE PAIN 06/05/20 18:45 06/06/20 17:09 DC Divalproex Sodium (Depakote Er) 1,250 mg QHS PO 06/07/20 21:00 06/15/20 19:47 DC 06/14/20 20:16 Vitamin D (Vitamin D3) 50,000 unit WEEKLY PO 06/07/20 17:15 08/23/20 07:29 Atorvastatin Calcium (Lipitor) 10 mg QHS PO 06/07/20 21:00 08/25/20 19:53 Quetiapine Fumarate (SEROquel) 25 mg QHS PO 06/09/20 21:00 08/25/20 19:53 Divalproex Sodium (Depakote Er) 250 mg QHS PO 06/15/20 21:00 06/21/20 17:39 DC 06/20/20 20:20 Divalproex Sodium (Depakote Er) 1,000 mg QHS PO 06/15/20 21:00 06/21/20 17:39 DC 06/20/20 20:21 Gabapentin (Neurontin) 300 mg BID PO 06/21/20 21:00 08/25/20 19:53 Acetaminophen/ Hydrocodone Bitart (Lortab 5/325) 1 tab PRN Q6HRS PRN PO MOD-SEV PAIN 08/17/20 17:15 08/25/20 19:52 Acetaminophen (Tylenol) 1,300 mg PRN Q8HRS PRN PO MILD PAIN / TEMP > 100.3'F 08/20/20 15:30 I have reviewed the current psychotropics carefully including drug interactions. Risk benefit ratio favors no change other than as noted in my dictated progress note. Diagnosis: Problems: (1) Bipolar disorder, unspecified (2) Impulse control disorder (3) Anxiety disorder, unspecified OBDULIA MOLINA MD Aug 26, 2020 08:14
[2020-08-26] MEDS: GABAPENTIN 300 MG CAPSULE. PO SCH ×2 (08:44→19:49)
[2020-08-26] MEDS: CALCIUM CARBONATE 500 MG TAB.CHEW PO SCH ×3 (08:44→17:14)
[2020-08-26] MEDS: METOPROLOL SUCC 24HR ER 25 MG TAB.ER.24H. PO SCH (08:44)
[2020-08-26] MEDS: amLODIPine BESYLATE 10 MG TABLET PO SCH (08:45)
[2020-08-26] MEDS: DICLOFENAC SODIUM 1% TOPICAL GEL 100GM TUBE. TP PRN (09:03)
[2020-08-26 15:57] VITALS: BP 148/80
[2020-08-26] MEDS: QUEtiapine 25 MG TABLET. PO SCH (19:49)
[2020-08-26] MEDS: HYDROcodone/APAP 5/325MG 1 TAB TABLET PO PRN (19:49)
[2020-08-26] MEDS: traZODone 50 MG TABLET. PO SCH (19:49)
[2020-08-26] MEDS: CYCLOBENZAPRINE 10 MG TABLET. PO PRN (19:49)
[2020-08-26] MEDS: ATORVASTATIN CALCIUM 10 MG TABLET. PO SCH (19:49)
--- NOTE | 2020-08-26 21:07 | PDOC ---
Exam Note: Jassi Note: Please also refer to the separate dictated note~for this date of service dictated separately.~Patient seen individually. Discussed the patient with Nursing staff reviewed the chart.~Reviewed interim history and current functioning. Reviewed vital signs,~Labs/ Radiology~and current medications noted below. Continue current treatment with the changes noted in the dictated addendum note Assessment: Vital Signs/I&O: Vital Signs Date Time Temp Pulse Resp B/P (MAP) Pulse Ox O2 Delivery O2 Flow Rate FiO2 08/26/20 20:49 96 08/26/20 15:57 97.6 79 16 148/80 (102) 08/26/20 06:12 Room Air I & O 08/25/20 08/25/20 08/26/20 15:00 23:00 07:00 Intake Total 680 ml 480 ml Balance 680 ml 480 ml Current Medications: Meds: Current Medications Medications (Trade) Dose Ordered Sig/Vicente Route PRN Reason Start Time Stop Time Status Last Admin Dose Admin Acetaminophen (Tylenol) 650 mg PRN Q6HRS PRN PO MILD PAIN / TEMP > 100.3'F 06/05/20 16:45 08/20/20 15:27 DC 08/20/20 08:58 Multi-Ingredient Ointment (Analgesic [place]) 1 martina PRN QID PRN TP MUSCLE PAIN 06/05/20 16:45 Cancel Al Hydroxide/Mg Hydroxide (Mylanta Plus Xs) 15 ml PRN AFTMEALHC PRN PO DYSPEPSIA 06/05/20 16:45 06/06/20 17:08 DC Magnesium Hydroxide (Milk Of Magnesia) 2,400 mg PRN QHS PRN PO CONSTIPATION 06/05/20 16:45 Acetaminophen (Tylenol) 1,000 mg BID PO 06/05/20 21:00 06/25/20 12:00 DC 06/23/20 09:08 Amlodipine Besylate (Norvasc) 5 mg DAILY PO 06/06/20 09:00 08/26/20 08:45 Cetirizine HCl (ZyrTEC) 10 mg PRN DAILY PRN PO ALLERGIES 06/05/20 18:15 07/29/20 12:21 Cyclobenzaprine HCl (Flexeril) 10 mg PRN QHS PRN PO MUSCLE SPASMS 06/05/20 18:15 08/26/20 19:49 Diclofenac Sodium (Voltaren) 1 martina PRN Q6HRS PRN TP MUSCLE SKELETAL PAIN 06/05/20 18:15 08/26/20 09:03 Divalproex Sodium (Depakote Er) 1,000 mg QHS PO 06/05/20 21:00 06/07/20 11:57 DC 06/06/20 20:47 Al Hydroxide/Mg Hydroxide (Mylanta Plus Xs) 15 ml PRN AFTMEALHC PRN PO DYSPEPSIA 06/05/20 18:15 Metoprolol Succinate (Toprol Xl) 25 mg DAILY PO 06/06/20 09:00 08/26/20 08:44 Trazodone HCl (Desyrel) 50 mg QHS PO 06/05/20 21:00 08/26/20 19:49 Calcium Carbonate/ Glycine (Tums) 500 mg TIDAFTMEAL PO 06/05/20 18:45 08/26/20 17:14 Magnesium Hydroxide (Milk Of Magnesia) 2,400 mg PRN QHS PRN PO CONSTIPATION 06/05/20 18:45 06/06/20 17:08 DC Multi-Ingredient Ointment (Analgesic [place]) 1 martina PRN QID PRN TP MUSCLE PAIN 06/05/20 18:45 06/06/20 17:09 DC Divalproex Sodium (Depakote Er) 1,250 mg QHS PO 06/07/20 21:00 06/15/20 19:47 DC 06/14/20 20:16 Vitamin D (Vitamin D3) 50,000 unit WEEKLY PO 06/07/20 17:15 08/23/20 07:29 Atorvastatin Calcium (Lipitor) 10 mg QHS PO 06/07/20 21:00 08/26/20 19:49 Quetiapine Fumarate (SEROquel) 25 mg QHS PO 06/09/20 21:00 08/26/20 19:49 Divalproex Sodium (Depakote Er) 250 mg QHS PO 06/15/20 21:00 06/21/20 17:39 DC 06/20/20 20:20 Divalproex Sodium (Depakote Er) 1,000 mg QHS PO 06/15/20 21:00 06/21/20 17:39 DC 06/20/20 20:21 Gabapentin (Neurontin) 300 mg BID PO 06/21/20 21:00 08/26/20 19:49 Acetaminophen/ Hydrocodone Bitart (Lortab 5/325) 1 tab PRN Q6HRS PRN PO MOD-SEV PAIN 08/17/20 17:15 08/26/20 19:49 Acetaminophen (Tylenol) 1,300 mg PRN Q8HRS PRN PO MILD PAIN / TEMP > 100.3'F 08/20/20 15:30 I have reviewed the current psychotropics carefully including drug interactions. Risk benefit ratio favors no change other than as noted in my dictated progress note. Diagnosis: Problems: (1) Impulse control disorder, unspecified (2) Bipolar disorder, unspecified (3) Anxiety disorder, unspecified OBDULIA MOLINA MD Aug 26, 2020 21:07
[2020-08-27 06:12] VITALS: BP 141/79
[2020-08-27] MEDS: METOPROLOL SUCC 24HR ER 25 MG TAB.ER.24H. PO SCH (08:00)
[2020-08-27] MEDS: GABAPENTIN 300 MG CAPSULE. PO SCH ×2 (08:00→19:57)
[2020-08-27] MEDS: CALCIUM CARBONATE 500 MG TAB.CHEW PO SCH ×3 (08:00→17:41)
[2020-08-27] MEDS: amLODIPine BESYLATE 10 MG TABLET PO SCH (08:01)
--- NOTE | 2020-08-27 08:57 | PDOC ---
Exam Note: Jassi Note: This note is a late entry for 08/26/2020 covers elements not covered in my initial note. Subjective: The patient was reviewed on telehealth rounds in the evening of 08/26/2020 with Sheron HOLLINGSWORTH. Discussed with nursing staff, reviewed the chart. He slept 6-3/4 hours previous night. The patient is compliant, cooperative. He states he was having some knee pain but he prayed to the Lord and the Lord cured his knee. He was quite convinced about this but very pleasant, verbal, interactive as I met with him individually. Review of Systems: No CV, , pulmonary, eye system symptoms on review. Mental Status Exam: The patient is alert and oriented. He is very pleasant, verbal, interactive. Speech is coherent. Abstraction is fair. Computation impaired. Language function intact. He was smiling and appropriate. Attention span is fair. Mood and affect is improved. No suicidal or homicidal ideation. Laboratory Data: Reviewed. Impression: Bipolar disorder unspecified. Anxiety disorder unspecified. Impulse control disorder. Plan: No change from initial note. Assessment: Vital Signs/I&O: Vital Signs Date Time Temp Pulse Resp B/P (MAP) Pulse Ox O2 Delivery O2 Flow Rate FiO2 08/27/20 08:01 57 141/79 08/27/20 06:12 98.2 16 96 08/26/20 06:12 Room Air I & O 08/26/20 08/26/20 08/27/20 15:00 23:00 07:00 Intake Total 840 ml 720 ml Balance 840 ml 720 ml Current Medications: Meds: Current Medications Medications (Trade) Dose Ordered Sig/Vicente Route PRN Reason Start Time Stop Time Status Last Admin Dose Admin Acetaminophen (Tylenol) 650 mg PRN Q6HRS PRN PO MILD PAIN / TEMP > 100.3'F 06/05/20 16:45 08/20/20 15:27 DC 08/20/20 08:58 Multi-Ingredient Ointment (Analgesic [place]) 1 martina PRN QID PRN TP MUSCLE PAIN 06/05/20 16:45 Cancel Al Hydroxide/Mg Hydroxide (Mylanta Plus Xs) 15 ml PRN AFTMEALHC PRN PO DYSPEPSIA 06/05/20 16:45 06/06/20 17:08 DC Magnesium Hydroxide (Milk Of Magnesia) 2,400 mg PRN QHS PRN PO CONSTIPATION 06/05/20 16:45 Acetaminophen (Tylenol) 1,000 mg BID PO 06/05/20 21:00 06/25/20 12:00 DC 06/23/20 09:08 Amlodipine Besylate (Norvasc) 5 mg DAILY PO 06/06/20 09:00 08/27/20 08:01 Cetirizine HCl (ZyrTEC) 10 mg PRN DAILY PRN PO ALLERGIES 06/05/20 18:15 07/29/20 12:21 Cyclobenzaprine HCl (Flexeril) 10 mg PRN QHS PRN PO MUSCLE SPASMS 06/05/20 18:15 08/26/20 19:49 Diclofenac Sodium (Voltaren) 1 martina PRN Q6HRS PRN TP MUSCLE SKELETAL PAIN 06/05/20 18:15 08/26/20 09:03 Divalproex Sodium (Depakote Er) 1,000 mg QHS PO 06/05/20 21:00 06/07/20 11:57 DC 06/06/20 20:47 Al Hydroxide/Mg Hydroxide (Mylanta Plus Xs) 15 ml PRN AFTMEALHC PRN PO DYSPEPSIA 06/05/20 18:15 Metoprolol Succinate (Toprol Xl) 25 mg DAILY PO 06/06/20 09:00 08/27/20 08:00 Trazodone HCl (Desyrel) 50 mg QHS PO 06/05/20 21:00 08/26/20 19:49 Calcium Carbonate/ Glycine (Tums) 500 mg TIDAFTMEAL PO 06/05/20 18:45 08/27/20 08:00 Magnesium Hydroxide (Milk Of Magnesia) 2,400 mg PRN QHS PRN PO CONSTIPATION 06/05/20 18:45 06/06/20 17:08 DC Multi-Ingredient Ointment (Analgesic [place]) 1 martina PRN QID PRN TP MUSCLE PAIN 06/05/20 18:45 06/06/20 17:09 DC Divalproex Sodium (Depakote Er) 1,250 mg QHS PO 06/07/20 21:00 06/15/20 19:47 DC 06/14/20 20:16 Vitamin D (Vitamin D3) 50,000 unit WEEKLY PO 06/07/20 17:15 08/23/20 07:29 Atorvastatin Calcium (Lipitor) 10 mg QHS PO 06/07/20 21:00 08/26/20 19:49 Quetiapine Fumarate (SEROquel) 25 mg QHS PO 06/09/20 21:00 08/26/20 19:49 Divalproex Sodium (Depakote Er) 250 mg QHS PO 06/15/20 21:00 06/21/20 17:39 DC 06/20/20 20:20 Divalproex Sodium (Depakote Er) 1,000 mg QHS PO 06/15/20 21:00 06/21/20 17:39 DC 06/20/20 20:21 Gabapentin (Neurontin) 300 mg BID PO 06/21/20 21:00 08/27/20 08:00 Acetaminophen/ Hydrocodone Bitart (Lortab 5/325) 1 tab PRN Q6HRS PRN PO MOD-SEV PAIN 08/17/20 17:15 08/26/20 19:49 Acetaminophen (Tylenol) 1,300 mg PRN Q8HRS PRN PO MILD PAIN / TEMP > 100.3'F 08/20/20 15:30 I have reviewed the current psychotropics carefully including drug interactions. Risk benefit ratio favors no change other than as noted in my dictated progress note. Diagnosis: Problems: (1) Bipolar disorder, unspecified (2) Impulse control disorder, unspecified (3) Anxiety disorder, unspecified OBDULIA MOLINA MD Aug 27, 2020 08:57
[2020-08-27 15:17] VITALS: BP 121/84
[2020-08-27] MEDS: traZODone 50 MG TABLET. PO SCH (19:56)
[2020-08-27] MEDS: CYCLOBENZAPRINE 10 MG TABLET. PO PRN (19:57)
[2020-08-27] MEDS: QUEtiapine 25 MG TABLET. PO SCH (19:57)
[2020-08-27] MEDS: ATORVASTATIN CALCIUM 10 MG TABLET. PO SCH (19:57)
--- NOTE | 2020-08-27 21:36 | PDOC ---
Exam Note: Jassi Note: Please also refer to the separate dictated note~for this date of service dictated separately.~Patient seen individually. Discussed the patient with Nursing staff reviewed the chart.~Reviewed interim history and current functioning. Reviewed vital signs,~Labs/ Radiology~and current medications noted below. Continue current treatment with the changes noted in the dictated addendum note Assessment: Vital Signs/I&O: Vital Signs Date Time Temp Pulse Resp B/P (MAP) Pulse Ox O2 Delivery O2 Flow Rate FiO2 08/27/20 15:17 97.9 84 20 121/84 (96) 94 Room Air I & O 08/26/20 08/26/20 08/27/20 15:00 23:00 07:00 Intake Total 840 ml 720 ml Balance 840 ml 720 ml Current Medications: I have reviewed the current psychotropics carefully including drug interactions. Risk benefit ratio favors no change other than as noted in my dictated progress note. Diagnosis: Problems: (1) Bipolar disorder, unspecified (2) Anxiety disorder, unspecified (3) Impulse control disorder OBDULIA MOLINA MD Aug 27, 2020 21:36
[2020-08-28 06:31] VITALS: BP 137/81
[2020-08-28] MEDS: METOPROLOL SUCC 24HR ER 25 MG TAB.ER.24H. PO SCH (08:14)
[2020-08-28] MEDS: GABAPENTIN 300 MG CAPSULE. PO SCH ×2 (08:15→20:24)
[2020-08-28] MEDS: amLODIPine BESYLATE 10 MG TABLET PO SCH (08:15)
[2020-08-28] MEDS: CALCIUM CARBONATE 500 MG TAB.CHEW PO SCH ×3 (08:15→17:58)
--- NOTE | 2020-08-28 12:53 | PN ---
DATE: 08/28/2020 SUBJECTIVE: The patient was seen today, met with the staff, chart reviewed and also covering for Dr. Santamaria. The patient is complaining of chronic back pain. Apparently, he fell recently hit his head backward. The patient is still awaiting for placement. Staff reports no major behavior problems. OBSERVATION: VITAL SIGNS: Temperature 97.1, blood pressure 137/81, pulse 69, respirations 16, O2 sat 95%. GENERAL: Slept about 5 hours last night. The patient's appetite is fair. The patient denies of any recent falls. LABORATORY DATA: The patient's lab reviewed. No significant change from prior levels. MEDICATIONS: The patient's current medications include gabapentin 300 mg twice a day, Seroquel 25 mg at night, trazodone 50 mg at night. ASSESSMENT: Bipolar disorder, mixed, with psychotic features; cognitive disorder, mild and impulse control disorder, unspecified. MEDHAT BACON MD DR: CÉSAR/eileen JOB#: [id number] / [id number]
[2020-08-28 15:32] VITALS: BP 130/88
[2020-08-28] MEDS: traZODone 50 MG TABLET. PO SCH (20:24)
[2020-08-28] MEDS: CYCLOBENZAPRINE 10 MG TABLET. PO PRN (20:25)
[2020-08-28] MEDS: QUEtiapine 25 MG TABLET. PO SCH (20:25)
[2020-08-28] MEDS: ATORVASTATIN CALCIUM 10 MG TABLET. PO SCH (20:26)
--- NOTE | 2020-08-28 21:12 | PDOC ---
Exam Note: Jassi Note: This note is a late entry for 08/27/2020 covers elements not covered in my initial note. Subjective: The patient was reviewed on telehealth rounds in the evening of 08/27/2020 with Zuleima HOLLINGSWORTH. Discussed with nursing staff, reviewed the chart. He slept 8 hours previous night. The patient has been fairly cooperative, appropriate on the unit. Review of Systems: No CV, , pulmonary, eye system symptoms on review. He still believes his power of prayer has got the Lord to cure his back pain and his knee pain. Mental Status Exam: The patient is alert and oriented. He is very pleasant, verbal, interactive. Speech is coherent. Abstraction is fair. Computation impaired. Language function intact. He was smiling and appropriate. Attention span is fair. Mood and affect is improved. No suicidal or homicidal ideation. Laboratory Data: Reviewed. Impression: Bipolar disorder unspecified. Anxiety disorder unspecified. Impulse control disorder. Plan: No change from initial note. Assessment: Vital Signs/I&O: Vital Signs Date Time Temp Pulse Resp B/P (MAP) Pulse Ox O2 Delivery O2 Flow Rate FiO2 08/28/20 15:32 98.0 98 20 130/88 (102) 96 Room Air I & O 08/27/20 08/27/20 08/28/20 15:00 23:00 07:00 Intake Total 840 ml 480 ml Balance 840 ml 480 ml Current Medications: Meds: Current Medications Medications (Trade) Dose Ordered Sig/Vicente Route PRN Reason Start Time Stop Time Status Last Admin Dose Admin Acetaminophen (Tylenol) 650 mg PRN Q6HRS PRN PO MILD PAIN / TEMP > 100.3'F 06/05/20 16:45 08/20/20 15:27 DC 08/20/20 08:58 Multi-Ingredient Ointment (Analgesic [place]) 1 martina PRN QID PRN TP MUSCLE PAIN 06/05/20 16:45 Cancel Al Hydroxide/Mg Hydroxide (Mylanta Plus Xs) 15 ml PRN AFTMEALHC PRN PO DYSPEPSIA 06/05/20 16:45 06/06/20 17:08 DC Magnesium Hydroxide (Milk Of Magnesia) 2,400 mg PRN QHS PRN PO CONSTIPATION 06/05/20 16:45 Acetaminophen (Tylenol) 1,000 mg BID PO 06/05/20 21:00 11/13/20 12:00 DC 06/23/20 09:08 Amlodipine Besylate (Norvasc) 5 mg DAILY PO 06/06/20 09:00 08/28/20 08:15 Cetirizine HCl (ZyrTEC) 10 mg PRN DAILY PRN PO ALLERGIES 06/05/20 18:15 07/29/20 12:21 Cyclobenzaprine HCl (Flexeril) 10 mg PRN QHS PRN PO MUSCLE SPASMS 06/05/20 18:15 08/28/20 20:25 Diclofenac Sodium (Voltaren) 1 martina PRN Q6HRS PRN TP MUSCLE SKELETAL PAIN 06/05/20 18:15 08/26/20 09:03 Divalproex Sodium (Depakote Er) 1,000 mg QHS PO 06/05/20 21:00 06/07/20 11:57 DC 06/06/20 20:47 Al Hydroxide/Mg Hydroxide (Mylanta Plus Xs) 15 ml PRN AFTMEALHC PRN PO DYSPEPSIA 06/05/20 18:15 Metoprolol Succinate (Toprol Xl) 25 mg DAILY PO 06/06/20 09:00 08/28/20 08:14 Trazodone HCl (Desyrel) 50 mg QHS PO 06/05/20 21:00 08/28/20 20:24 Calcium Carbonate/ Glycine (Tums) 500 mg TIDAFTMEAL PO 06/05/20 18:45 08/28/20 17:58 Magnesium Hydroxide (Milk Of Magnesia) 2,400 mg PRN QHS PRN PO CONSTIPATION 06/05/20 18:45 06/06/20 17:08 DC Multi-Ingredient Ointment (Analgesic [place]) 1 martina PRN QID PRN TP MUSCLE PAIN 06/05/20 18:45 06/06/20 17:09 DC Divalproex Sodium (Depakote Er) 1,250 mg QHS PO 06/07/20 21:00 06/15/20 19:47 DC 06/14/20 20:16 Vitamin D (Vitamin D3) 50,000 unit WEEKLY PO 06/07/20 17:15 08/23/20 07:29 Atorvastatin Calcium (Lipitor) 10 mg QHS PO 06/07/20 21:00 08/28/20 20:26 Quetiapine Fumarate (SEROquel) 25 mg QHS PO 06/09/20 21:00 08/28/20 20:25 Divalproex Sodium (Depakote Er) 250 mg QHS PO 06/15/20 21:00 06/21/20 17:39 DC 06/20/20 20:20 Divalproex Sodium (Depakote Er) 1,000 mg QHS PO 06/15/20 21:00 06/21/20 17:39 DC 06/20/20 20:21 Gabapentin (Neurontin) 300 mg BID PO 06/21/20 21:00 08/28/20 20:24 Acetaminophen/ Hydrocodone Bitart (Lortab 5/325) 1 tab PRN Q6HRS PRN PO MOD-SEV PAIN 08/17/20 17:15 08/26/20 19:49 Acetaminophen (Tylenol) 1,300 mg PRN Q8HRS PRN PO MILD PAIN / TEMP > 100.3'F 08/20/20 15:30 08/27/20 19:41 DC Acetaminophen (Tylenol) 650 mg PRN Q6HRS PRN PO MILD PAIN / TEMP > 100.3'F 08/27/20 19:45 I have reviewed the current psychotropics carefully including drug interactions. Risk benefit ratio favors no change other than as noted in my dictated progress note. Diagnosis: Problems: (1) Bipolar disorder, unspecified (2) Impulse control disorder, unspecified (3) Anxiety disorder, unspecified OBDULIA MOLINA MD Aug 28, 2020 21:12
[2020-08-29 06:33] VITALS: BP 150/88
[2020-08-29] MEDS: CALCIUM CARBONATE 500 MG TAB.CHEW PO SCH ×3 (07:43→17:29)
[2020-08-29] MEDS: METOPROLOL SUCC 24HR ER 25 MG TAB.ER.24H. PO SCH (07:44)
[2020-08-29] MEDS: amLODIPine BESYLATE 10 MG TABLET PO SCH (07:44)
[2020-08-29] MEDS: GABAPENTIN 300 MG CAPSULE. PO SCH ×2 (07:44→19:48)
[2020-08-29 10:27] LABS: HEMATOCRIT 41.5 % (39.0-53.0); RED BLOOD COUNT 4.59 x10^6/uL (4.30-5.70)
[2020-08-29 10:45] LABS: ALBUMIN 3.4 g/dL (3.4-5.0); ALBUMIN/GLOBULIN RATIO 0.9 (1.0-1.7); GFR 73.7; POTASSIUM 3.8 mmol/L (3.5-5.1); TOTAL BILIRUBIN 0.4 mg/dL (0.2-1.0); TOTAL PROTEIN 7.1 g/dL (6.4-8.2)
[2020-08-29] MEDS: DICLOFENAC SODIUM 1% TOPICAL GEL 100GM TUBE. TP PRN (11:32)
--- NOTE | 2020-08-29 12:58 | PN ---
DATE: 08/29/2020 SUBJECTIVE: The patient was seen today, met with the staff, chart reviewed. The patient continues to have problems with chronic pain; otherwise, no major behavior problems. OBSERVATION: VITAL SIGNS: Temperature 97.4, blood pressure 150/88, pulse 73, respirations 18, O2 sat 93%. GENERAL: Slept about 6 hours last night. The patient's appetite has improved. Staff reports he is much calmer, cooperative and compliant with the medications and assessments. MEDICATIONS: The patient is currently on gabapentin 300 mg twice a day, Seroquel 25 mg at night, trazodone 50 mg at night and not having any side effects. The patient is not admitting to any other physical problems. ASSESSMENT: Bipolar disorder, mixed with psychotic features, cognitive disorder, mild and impulse control disorder, unspecified. PLAN: To continue with the current treatment plan. LENGTH OF STAY: 5 days. Awaiting for placement. MEDHAT BACON MD DR: CÉSAR/eileen JOB#: [id number] / [id number]
[2020-08-29 16:02] VITALS: BP 132/74
[2020-08-29] MEDS: traZODone 50 MG TABLET. PO SCH (19:48)
[2020-08-29] MEDS: ATORVASTATIN CALCIUM 10 MG TABLET. PO SCH (19:49)
[2020-08-29] MEDS: CYCLOBENZAPRINE 10 MG TABLET. PO PRN (19:49)
[2020-08-29] MEDS: QUEtiapine 25 MG TABLET. PO SCH (19:49)
[2020-08-30 06:00] VITALS: BP 135/82
[2020-08-30] MEDS: GABAPENTIN 300 MG CAPSULE. PO SCH ×2 (08:26→20:27)
[2020-08-30] MEDS: METOPROLOL SUCC 24HR ER 25 MG TAB.ER.24H. PO SCH (08:26)
[2020-08-30] MEDS: amLODIPine BESYLATE 10 MG TABLET PO SCH (08:27)
[2020-08-30] MEDS: CALCIUM CARBONATE 500 MG TAB.CHEW PO SCH ×3 (08:27→17:30)
[2020-08-30] MEDS: CHOLECALCIFEROL (VITAMIN D3) 50,000 UNIT CAPSULE PO SCH (08:28)
[2020-08-30] MEDS: DICLOFENAC SODIUM 1% TOPICAL GEL 100GM TUBE. TP PRN (11:30)
[2020-08-30 16:27] VITALS: BP 130/85
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
[2020-08-30] MEDS: traZODone 50 MG TABLET. PO SCH (20:27)
[2020-08-30] MEDS: ATORVASTATIN CALCIUM 10 MG TABLET. PO SCH (20:27)
[2020-08-30] MEDS: QUEtiapine 25 MG TABLET. PO SCH (20:27)
[2020-08-30] MEDS: HYDROcodone/APAP 5/325MG 1 TAB TABLET PO PRN (20:28)
[2020-08-30] MEDS: CYCLOBENZAPRINE 10 MG TABLET. PO PRN (20:28)
--- NOTE | 2020-08-30 21:00 | PDOC ---
Exam Note: Jassi Note: Please also refer to the separate dictated note~for this date of service dictated separately.~Patient seen individually. Discussed the patient with Nursing staff reviewed the chart.~Reviewed interim history and current functioning. Reviewed vital signs,~Labs/ Radiology~and current medications noted below. Continue current treatment with the changes noted in the dictated addendum note Assessment: Vital Signs/I&O: Vital Signs Date Time Temp Pulse Resp B/P (MAP) Pulse Ox O2 Delivery O2 Flow Rate FiO2 08/30/20 16:27 98.4 96 18 130/85 (100) 100 08/29/20 06:33 Room Air I & O 08/29/20 08/29/20 08/30/20 15:00 23:00 07:00 Intake Total 960 ml 600 ml Balance 960 ml 600 ml Current Medications: I have reviewed the current psychotropics carefully including drug interactions. Risk benefit ratio favors no change other than as noted in my dictated progress note. Diagnosis: Problems: (1) Bipolar disorder, unspecified (2) Anxiety disorder, unspecified (3) Impulse control disorder, unspecified OBDULIA MOLINA MD Aug 30, 2020 21:00
[2020-08-31 05:44] VITALS: BP 124/62
--- NOTE | 2020-08-31 08:55 | PDOC ---
Exam Note: Jassi Note: This note is a late entry for 08/30/2020 covers elements not covered in my initial note. Subjective: The patient was reviewed on telehealth rounds in the morning of 08/30/2020 for a treatment team meeting with Eula Ellsworth, Samra Hsu and Shirin (social work case manager), Rosana Sanchez, activity therapy and Niya HOLLINGSWORTH. Discussed with nursing staff, reviewed the chart. He slept 6-3/4 hours previous night. Appetite is fair. Overall per social service report, the patient has been accepted at [facility]. Review of Systems: Denies any back pain or knee pain. No CV, , pulmonary, eye, ENT system symptoms on review. Mental Status Exam: The patient is alert and oriented. He is very pleasant, verbal, interactive. No overt paranoia. Speech is coherent. Abstraction is fair. Computation impaired. Language function intact. He was smiling and appropriate. Attention span is fair. Mood and affect is improved. No suicidal or homicidal ideation. Laboratory Data: Reviewed. Impression: Bipolar disorder unspecified. Anxiety disorder unspecified. Impulse control disorder. Plan: No change from initial note. Transition to the detention as can be arranged per social service staff. Assessment: Vital Signs/I&O: Vital Signs Date Time Temp Pulse Resp B/P (MAP) Pulse Ox O2 Delivery O2 Flow Rate FiO2 08/31/20 05:44 97.9 85 18 124/62 (82) 94 08/29/20 06:33 Room Air I & O 08/30/20 08/30/20 08/31/20 15:00 23:00 07:00 Intake Total 840 ml 480 ml Balance 840 ml 480 ml Current Medications: Meds: Current Medications Medications (Trade) Dose Ordered Sig/Vicente Route PRN Reason Start Time Stop Time Status Last Admin Dose Admin Acetaminophen (Tylenol) 650 mg PRN Q6HRS PRN PO MILD PAIN / TEMP > 100.3'F 06/05/20 16:45 08/20/20 15:27 DC 08/20/20 08:58 Multi-Ingredient Ointment (Analgesic [place]) 1 martina PRN QID PRN TP MUSCLE PAIN 06/05/20 16:45 Cancel Al Hydroxide/Mg Hydroxide (Mylanta Plus Xs) 15 ml PRN AFTMEALHC PRN PO DYSPEPSIA 06/05/20 16:45 06/06/20 17:08 DC Magnesium Hydroxide (Milk Of Magnesia) 2,400 mg PRN QHS PRN PO CONSTIPATION 06/05/20 16:45 Acetaminophen (Tylenol) 1,000 mg BID PO 06/05/20 21:00 06/25/20 12:00 DC 06/23/20 09:08 Amlodipine Besylate (Norvasc) 5 mg DAILY PO 06/06/20 09:00 08/30/20 08:27 Cetirizine HCl (ZyrTEC) 10 mg PRN DAILY PRN PO ALLERGIES 06/05/20 18:15 07/29/20 12:21 Cyclobenzaprine HCl (Flexeril) 10 mg PRN QHS PRN PO MUSCLE SPASMS 06/05/20 18:15 08/30/20 20:28 Diclofenac Sodium (Voltaren) 1 martina PRN Q6HRS PRN TP MUSCLE SKELETAL PAIN 06/05/20 18:15 08/30/20 11:30 Divalproex Sodium (Depakote Er) 1,000 mg QHS PO 06/05/20 21:00 06/07/20 11:57 DC 06/06/20 20:47 Al Hydroxide/Mg Hydroxide (Mylanta Plus Xs) 15 ml PRN AFTMEALHC PRN PO DYSPEPSIA 06/05/20 18:15 Metoprolol Succinate (Toprol Xl) 25 mg DAILY PO 06/06/20 09:00 08/30/20 08:26 Trazodone HCl (Desyrel) 50 mg QHS PO 06/05/20 21:00 08/30/20 20:27 Calcium Carbonate/ Glycine (Tums) 500 mg TIDAFTMEAL PO 06/05/20 18:45 08/30/20 17:30 Magnesium Hydroxide (Milk Of Magnesia) 2,400 mg PRN QHS PRN PO CONSTIPATION 06/05/20 18:45 06/06/20 17:08 DC Multi-Ingredient Ointment (Analgesic [place]) 1 martina PRN QID PRN TP MUSCLE PAIN 06/05/20 18:45 06/06/20 17:09 DC Divalproex Sodium (Depakote Er) 1,250 mg QHS PO 06/07/20 21:00 06/15/20 19:47 DC 06/14/20 20:16 Vitamin D (Vitamin D3) 50,000 unit WEEKLY PO 06/07/20 17:15 08/30/20 08:28 Atorvastatin Calcium (Lipitor) 10 mg QHS PO 06/07/20 21:00 08/30/20 20:27 Quetiapine Fumarate (SEROquel) 25 mg QHS PO 06/09/20 21:00 08/30/20 20:27 Divalproex Sodium (Depakote Er) 250 mg QHS PO 06/15/20 21:00 06/21/20 17:39 DC 06/20/20 20:20 Divalproex Sodium (Depakote Er) 1,000 mg QHS PO 06/15/20 21:00 06/21/20 17:39 DC 06/20/20 20:21 Gabapentin (Neurontin) 300 mg BID PO 06/21/20 21:00 08/30/20 20:27 Acetaminophen/ Hydrocodone Bitart (Lortab 5/325) 1 tab PRN Q6HRS PRN PO MOD-SEV PAIN 08/17/20 17:15 08/30/20 20:28 Acetaminophen (Tylenol) 1,300 mg PRN Q8HRS PRN PO MILD PAIN / TEMP > 100.3'F 08/20/20 15:30 08/27/20 19:41 DC Acetaminophen (Tylenol) 650 mg PRN Q6HRS PRN PO MILD PAIN / TEMP > 100.3'F 08/27/20 19:45 I have reviewed the current psychotropics carefully including drug interactions. Risk benefit ratio favors no change other than as noted in my dictated progress note. Diagnosis: Problems: (1) Bipolar disorder, unspecified (2) Anxiety disorder, unspecified (3) Impulse control disorder OBDULIA MOLINA MD Aug 31, 2020 08:55
[2020-08-31] MEDS: CALCIUM CARBONATE 500 MG TAB.CHEW PO SCH ×3 (08:57→17:41)
[2020-08-31] MEDS: GABAPENTIN 300 MG CAPSULE. PO SCH ×2 (08:57→20:13)
[2020-08-31] MEDS: METOPROLOL SUCC 24HR ER 25 MG TAB.ER.24H. PO SCH (08:57)
[2020-08-31] MEDS: amLODIPine BESYLATE 10 MG TABLET PO SCH (08:58)
[2020-08-31 16:03] VITALS: BP 117/77
[2020-08-31] MEDS: traZODone 50 MG TABLET. PO SCH (20:13)
[2020-08-31] MEDS: QUEtiapine 25 MG TABLET. PO SCH (20:13)
[2020-08-31] MEDS: ATORVASTATIN CALCIUM 10 MG TABLET. PO SCH (20:13)
[2020-08-31] MEDS: HYDROcodone/APAP 5/325MG 1 TAB TABLET PO PRN (20:15)
[2020-08-31] MEDS: CYCLOBENZAPRINE 10 MG TABLET. PO PRN (20:16)
[2020-08-31] MEDS: DICLOFENAC SODIUM 1% TOPICAL GEL 100GM TUBE. TP PRN (20:16)
--- NOTE | 2020-08-31 21:01 | PDOC ---
Exam Note: Jassi Note: Please also refer to the separate dictated note~for this date of service dictated separately.~Patient seen individually. Discussed the patient with Nursing staff reviewed the chart.~Reviewed interim history and current functioning. Reviewed vital signs,~Labs/ Radiology~and current medications noted below. Continue current treatment with the changes noted in the dictated addendum note Assessment: Vital Signs/I&O: Vital Signs Date Time Temp Pulse Resp B/P (MAP) Pulse Ox O2 Delivery O2 Flow Rate FiO2 08/31/20 16:03 97.8 94 18 117/77 (90) 96 08/29/20 06:33 Room Air I & O 08/30/20 08/30/20 08/31/20 15:00 23:00 07:00 Intake Total 840 ml 480 ml Balance 840 ml 480 ml Current Medications: Meds: Current Medications Medications (Trade) Dose Ordered Sig/Vicente Route PRN Reason Start Time Stop Time Status Last Admin Dose Admin Acetaminophen (Tylenol) 650 mg PRN Q6HRS PRN PO MILD PAIN / TEMP > 100.3'F 06/05/20 16:45 08/20/20 15:27 DC 08/20/20 08:58 Multi-Ingredient Ointment (Analgesic [place]) 1 martina PRN QID PRN TP MUSCLE PAIN 06/05/20 16:45 Cancel Al Hydroxide/Mg Hydroxide (Mylanta Plus Xs) 15 ml PRN AFTMEALHC PRN PO DYSPEPSIA 06/05/20 16:45 06/06/20 17:08 DC Magnesium Hydroxide (Milk Of Magnesia) 2,400 mg PRN QHS PRN PO CONSTIPATION 06/05/20 16:45 Acetaminophen (Tylenol) 1,000 mg BID PO 06/05/20 21:00 06/25/20 12:00 DC 06/23/20 09:08 Amlodipine Besylate (Norvasc) 5 mg DAILY PO 06/06/20 09:00 08/31/20 08:58 Cetirizine HCl (ZyrTEC) 10 mg PRN DAILY PRN PO ALLERGIES 06/05/20 18:15 07/29/20 12:21 Cyclobenzaprine HCl (Flexeril) 10 mg PRN QHS PRN PO MUSCLE SPASMS 06/05/20 18:15 08/31/20 20:16 Diclofenac Sodium (Voltaren) 1 martina PRN Q6HRS PRN TP MUSCLE SKELETAL PAIN 06/05/20 18:15 08/31/20 20:16 Divalproex Sodium (Depakote Er) 1,000 mg QHS PO 06/05/20 21:00 06/07/20 11:57 DC 06/06/20 20:47 Al Hydroxide/Mg Hydroxide (Mylanta Plus Xs) 15 ml PRN AFTMEALHC PRN PO DYSPEPSIA 06/05/20 18:15 Metoprolol Succinate (Toprol Xl) 25 mg DAILY PO 06/06/20 09:00 08/31/20 08:57 Trazodone HCl (Desyrel) 50 mg QHS PO 06/05/20 21:00 08/31/20 20:13 Calcium Carbonate/ Glycine (Tums) 500 mg TIDAFTMEAL PO 06/05/20 18:45 08/31/20 17:41 Magnesium Hydroxide (Milk Of Magnesia) 2,400 mg PRN QHS PRN PO CONSTIPATION 06/05/20 18:45 06/06/20 17:08 DC Multi-Ingredient Ointment (Analgesic [place]) 1 martina PRN QID PRN TP MUSCLE PAIN 06/05/20 18:45 06/06/20 17:09 DC Divalproex Sodium (Depakote Er) 1,250 mg QHS PO 06/07/20 21:00 06/15/20 19:47 DC 06/14/20 20:16 Vitamin D (Vitamin D3) 50,000 unit WEEKLY PO 06/07/20 17:15 08/30/20 08:28 Atorvastatin Calcium (Lipitor) 10 mg QHS PO 06/07/20 21:00 08/31/20 20:13 Quetiapine Fumarate (SEROquel) 25 mg QHS PO 06/09/20 21:00 08/31/20 20:13 Divalproex Sodium (Depakote Er) 250 mg QHS PO 06/15/20 21:00 06/21/20 17:39 DC 06/20/20 20:20 Divalproex Sodium (Depakote Er) 1,000 mg QHS PO 06/15/20 21:00 06/21/20 17:39 DC 06/20/20 20:21 Gabapentin (Neurontin) 300 mg BID PO 06/21/20 21:00 08/31/20 20:13 Acetaminophen/ Hydrocodone Bitart (Lortab 5/325) 1 tab PRN Q6HRS PRN PO MOD-SEV PAIN 08/17/20 17:15 08/31/20 20:15 Acetaminophen (Tylenol) 1,300 mg PRN Q8HRS PRN PO MILD PAIN / TEMP > 100.3'F 08/20/20 15:30 08/27/20 19:41 DC Acetaminophen (Tylenol) 650 mg PRN Q6HRS PRN PO MILD PAIN / TEMP > 100.3'F 08/27/20 19:45 I have reviewed the current psychotropics carefully including drug interactions. Risk benefit ratio favors no change other than as noted in my dictated progress note. Diagnosis: Problems: (1) Bipolar disorder, unspecified (2) Impulse control disorder, unspecified (3) Anxiety disorder, unspecified OBDULIA MOLINA MD Aug 31, 2020 21:01
[2020-09-01 06:32] VITALS: BP 122/78
[2020-09-01] MEDS: CALCIUM CARBONATE 500 MG TAB.CHEW PO SCH ×3 (07:52→17:29)
[2020-09-01] MEDS: METOPROLOL SUCC 24HR ER 25 MG TAB.ER.24H. PO SCH (07:52)
[2020-09-01] MEDS: GABAPENTIN 300 MG CAPSULE. PO SCH ×2 (07:52→20:38)
[2020-09-01] MEDS: amLODIPine BESYLATE 10 MG TABLET PO SCH (07:52)
[2020-09-01] MEDS: DICLOFENAC SODIUM 1% TOPICAL GEL 100GM TUBE. TP PRN (14:41)
[2020-09-01 15:10] VITALS: BP 142/81
[2020-09-01] MEDS: traZODone 50 MG TABLET. PO SCH (20:38)
[2020-09-01] MEDS: HYDROcodone/APAP 5/325MG 1 TAB TABLET PO PRN (20:38)
[2020-09-01] MEDS: CYCLOBENZAPRINE 10 MG TABLET. PO PRN (20:38)
[2020-09-01] MEDS: QUEtiapine 25 MG TABLET. PO SCH (20:38)
[2020-09-01] MEDS: ATORVASTATIN CALCIUM 10 MG TABLET. PO SCH (20:38)
--- NOTE | 2020-09-01 20:48 | PDOC ---
Exam Note: Jassi Note: Please also refer to the separate dictated note~for this date of service dictated separately.~Patient seen individually. Discussed the patient with Nursing staff reviewed the chart.~Reviewed interim history and current functioning. Reviewed vital signs,~Labs/ Radiology~and current medications noted below. Continue current treatment with the changes noted in the dictated addendum note Assessment: Vital Signs/I&O: Vital Signs Date Time Temp Pulse Resp B/P (MAP) Pulse Ox O2 Delivery O2 Flow Rate FiO2 09/01/20 15:10 98.7 92 17 142/81 (101) 97 09/01/20 06:32 Room Air I & O 08/31/20 08/31/20 09/01/20 15:00 23:00 07:00 Intake Total 700 ml 720 ml Balance 700 ml 720 ml Current Medications: Meds: Current Medications Medications (Trade) Dose Ordered Sig/Vicente Route PRN Reason Start Time Stop Time Status Last Admin Dose Admin Acetaminophen (Tylenol) 650 mg PRN Q6HRS PRN PO MILD PAIN / TEMP > 100.3'F 06/05/20 16:45 08/20/20 15:27 DC 08/20/20 08:58 Multi-Ingredient Ointment (Analgesic [place]) 1 martina PRN QID PRN TP MUSCLE PAIN 06/05/20 16:45 Cancel Al Hydroxide/Mg Hydroxide (Mylanta Plus Xs) 15 ml PRN AFTMEALHC PRN PO DYSPEPSIA 06/05/20 16:45 06/06/20 17:08 DC Magnesium Hydroxide (Milk Of Magnesia) 2,400 mg PRN QHS PRN PO CONSTIPATION 06/05/20 16:45 Acetaminophen (Tylenol) 1,000 mg BID PO 06/05/20 21:00 06/25/20 12:00 DC 06/23/20 09:08 Amlodipine Besylate (Norvasc) 5 mg DAILY PO 06/06/20 09:00 09/01/20 07:52 Cetirizine HCl (ZyrTEC) 10 mg PRN DAILY PRN PO ALLERGIES 06/05/20 18:15 07/29/20 12:21 Cyclobenzaprine HCl (Flexeril) 10 mg PRN QHS PRN PO MUSCLE SPASMS 06/05/20 18:15 09/01/20 20:38 Diclofenac Sodium (Voltaren) 1 martina PRN Q6HRS PRN TP MUSCLE SKELETAL PAIN 06/05/20 18:15 09/01/20 14:41 Divalproex Sodium (Depakote Er) 1,000 mg QHS PO 06/05/20 21:00 06/07/20 11:57 DC 06/06/20 20:47 Al Hydroxide/Mg Hydroxide (Mylanta Plus Xs) 15 ml PRN AFTMEALHC PRN PO DYSPEPSIA 06/05/20 18:15 Metoprolol Succinate (Toprol Xl) 25 mg DAILY PO 06/06/20 09:00 09/01/20 07:52 Trazodone HCl (Desyrel) 50 mg QHS PO 06/05/20 21:00 09/01/20 20:38 Calcium Carbonate/ Glycine (Tums) 500 mg TIDAFTMEAL PO 06/05/20 18:45 09/01/20 17:29 Magnesium Hydroxide (Milk Of Magnesia) 2,400 mg PRN QHS PRN PO CONSTIPATION 06/05/20 18:45 06/06/20 17:08 DC Multi-Ingredient Ointment (Analgesic [place]) 1 martina PRN QID PRN TP MUSCLE PAIN 06/05/20 18:45 06/06/20 17:09 DC Divalproex Sodium (Depakote Er) 1,250 mg QHS PO 06/07/20 21:00 06/15/20 19:47 DC 06/14/20 20:16 Vitamin D (Vitamin D3) 50,000 unit WEEKLY PO 06/07/20 17:15 08/30/20 08:28 Atorvastatin Calcium (Lipitor) 10 mg QHS PO 06/07/20 21:00 09/01/20 20:38 Quetiapine Fumarate (SEROquel) 25 mg QHS PO 06/09/20 21:00 09/01/20 20:38 Divalproex Sodium (Depakote Er) 250 mg QHS PO 06/15/20 21:00 06/21/20 17:39 DC 06/20/20 20:20 Divalproex Sodium (Depakote Er) 1,000 mg QHS PO 06/15/20 21:00 06/21/20 17:39 DC 06/20/20 20:21 Gabapentin (Neurontin) 300 mg BID PO 06/21/20 21:00 09/01/20 20:38 Acetaminophen/ Hydrocodone Bitart (Lortab 5/325) 1 tab PRN Q6HRS PRN PO MOD-SEV PAIN 08/17/20 17:15 09/01/20 20:38 Acetaminophen (Tylenol) 1,300 mg PRN Q8HRS PRN PO MILD PAIN / TEMP > 100.3'F 08/20/20 15:30 08/27/20 19:41 DC Acetaminophen (Tylenol) 650 mg PRN Q6HRS PRN PO MILD PAIN / TEMP > 100.3'F 08/27/20 19:45 I have reviewed the current psychotropics carefully including drug interactions. Risk benefit ratio favors no change other than as noted in my dictated progress note. Diagnosis: Problems: (1) Bipolar disorder, unspecified (2) Impulse control disorder, unspecified (3) Anxiety disorder, unspecified OBDULIA MOLINA MD Sep 01, 2020 20:48
--- NOTE | 2020-09-01 20:48 | PDOC ---
Exam Note: Jassi Note: This note is a late entry for 08/31/2020 covers elements not covered in my initial note. Subjective: The patient was reviewed on telehealth rounds in the evening of 08/31/2020 with Niya HOLLINGSWORTH. Discussed with nursing staff, reviewed the chart. He slept 5 hours previous night. Appetite is fair. Review of Systems: Denies any back pain or knee pain. No CV, , pulmonary, eye, ENT system symptoms on review. Mental Status Exam: The patient is alert and oriented. He is very pleasant, verbal, interactive. Speech is coherent. Abstraction is fair. Computation i mpaired. Language function intact. He was smiling and appropriate. Attention span is fair. Mood and affect is improved. No suicidal or homicidal ideation. Laboratory Data: Reviewed. Impression: Bipolar disorder unspecified. Anxiety disorder unspecified. Impulse control disorder. Plan: No change from initial note. Assessment: Vital Signs/I&O: Vital Signs Date Time Temp Pulse Resp B/P (MAP) Pulse Ox O2 Delivery O2 Flow Rate FiO2 09/01/20 15:10 98.7 92 17 142/81 (101) 97 09/01/20 06:32 Room Air I & O 08/31/20 08/31/20 09/01/20 15:00 23:00 07:00 Intake Total 700 ml 720 ml Balance 700 ml 720 ml Current Medications: Meds: Current Medications Medications (Trade) Dose Ordered Sig/Vicente Route PRN Reason Start Time Stop Time Status Last Admin Dose Admin Acetaminophen (Tylenol) 650 mg PRN Q6HRS PRN PO MILD PAIN / TEMP > 100.3'F 06/05/20 16:45 08/20/20 15:27 DC 08/20/20 08:58 Multi-Ingredient Ointment (Analgesic [place]) 1 martina PRN QID PRN TP MUSCLE PAIN 06/05/20 16:45 Cancel Al Hydroxide/Mg Hydroxide (Mylanta Plus Xs) 15 ml PRN AFTMEALHC PRN PO DYSPEPSIA 06/05/20 16:45 06/06/20 17:08 DC Magnesium Hydroxide (Milk Of Magnesia) 2,400 mg PRN QHS PRN PO CONSTIPATION 06/05/20 16:45 Acetaminophen (Tylenol) 1,000 mg BID PO 06/05/20 21:00 06/25/20 12:00 DC 06/23/20 09:08 Amlodipine Besylate (Norvasc) 5 mg DAILY PO 06/06/20 09:00 09/01/20 07:52 Cetirizine HCl (ZyrTEC) 10 mg PRN DAILY PRN PO ALLERGIES 06/05/20 18:15 07/29/20 12:21 Cyclobenzaprine HCl (Flexeril) 10 mg PRN QHS PRN PO MUSCLE SPASMS 06/05/20 18:15 09/01/20 20:38 Diclofenac Sodium (Voltaren) 1 martina PRN Q6HRS PRN TP MUSCLE SKELETAL PAIN 06/05/20 18:15 09/01/20 14:41 Divalproex Sodium (Depakote Er) 1,000 mg QHS PO 06/05/20 21:00 06/07/20 11:57 DC 06/06/20 20:47 Al Hydroxide/Mg Hydroxide (Mylanta Plus Xs) 15 ml PRN AFTMEALHC PRN PO DYSPEPSIA 06/05/20 18:15 Metoprolol Succinate (Toprol Xl) 25 mg DAILY PO 06/06/20 09:00 09/01/20 07:52 Trazodone HCl (Desyrel) 50 mg QHS PO 06/05/20 21:00 09/01/20 20:38 Calcium Carbonate/ Glycine (Tums) 500 mg TIDAFTMEAL PO 06/05/20 18:45 09/01/20 17:29 Magnesium Hydroxide (Milk Of Magnesia) 2,400 mg PRN QHS PRN PO CONSTIPATION 06/05/20 18:45 06/06/20 17:08 DC Multi-Ingredient Ointment (Analgesic [place]) 1 martina PRN QID PRN TP MUSCLE PAIN 06/05/20 18:45 06/06/20 17:09 DC Divalproex Sodium (Depakote Er) 1,250 mg QHS PO 06/07/20 21:00 06/15/20 19:47 DC 06/14/20 20:16 Vitamin D (Vitamin D3) 50,000 unit WEEKLY PO 06/07/20 17:15 08/30/20 08:28 Atorvastatin Calcium (Lipitor) 10 mg QHS PO 06/07/20 21:00 09/01/20 20:38 Quetiapine Fumarate (SEROquel) 25 mg QHS PO 06/09/20 21:00 09/01/20 20:38 Divalproex Sodium (Depakote Er) 250 mg QHS PO 06/15/20 21:00 06/21/20 17:39 DC 06/20/20 20:20 Divalproex Sodium (Depakote Er) 1,000 mg QHS PO 06/15/20 21:00 06/21/20 17:39 DC 06/20/20 20:21 Gabapentin (Neurontin) 300 mg BID PO 06/21/20 21:00 09/01/20 20:38 Acetaminophen/ Hydrocodone Bitart (Lortab 5/325) 1 tab PRN Q6HRS PRN PO MOD-SEV PAIN 08/17/20 17:15 09/01/20 20:38 Acetaminophen (Tylenol) 1,300 mg PRN Q8HRS PRN PO MILD PAIN / TEMP > 100.3'F 08/20/20 15:30 08/27/20 19:41 DC Acetaminophen (Tylenol) 650 mg PRN Q6HRS PRN PO MILD PAIN / TEMP > 100.3'F 08/27/20 19:45 I have reviewed the current psychotropics carefully including drug interactions. Risk benefit ratio favors no change other than as noted in my dictated progress note. Diagnosis: Problems: (1) Bipolar disorder, unspecified (2) Impulse control disorder, unspecified (3) Anxiety disorder, unspecified OBDULIA MOLINA MD Sep 01, 2020 20:48
[2020-09-02 06:18] VITALS: BP 121/76
--- NOTE | 2020-09-02 08:02 | PDOC ---
Exam Note: Jassi Note: This note is a late entry for 09/01/2020 covers elements not covered in my initial note. Subjective: The patient was reviewed on telehealth rounds in the evening of 09/01/2020 with Michelle HOLLINGSWORTH. Discussed with nursing staff, reviewed the chart. He slept 7-1/2 hours previous night. The patient has been somewhat intrusive at times, but redirects. As I met with him on telehealth rounds, he states his pain is better from 7 down to 1 in the back and knee. Review of Systems: No CV, , pulmonary, eye, ENT system symptoms on review. Mental Status Exam: The patient is alert and oriented. He is very pleasant, interactive, still looking forward to being discharged. Speech is coherent. Abstraction is fair. Computation impaired. Language function intact. Attention span is fair. Mood and affect is improved. No suicidal or homicidal ideation. Laboratory Data: Reviewed. Impression: Bipolar disorder unspecified. Anxiety disorder unspecified. Impulse control disorder. Plan: No change from initial note. Assessment: Vital Signs/I&O: Vital Signs Date Time Temp Pulse Resp B/P (MAP) Pulse Ox O2 Delivery O2 Flow Rate FiO2 09/02/20 06:18 97.1 68 17 121/76 (91) 96 Room Air I & O 09/01/20 09/01/20 09/02/20 15:00 23:00 07:00 Intake Total 720 ml 600 ml Balance 720 ml 600 ml Current Medications: Meds: Current Medications Medications (Trade) Dose Ordered Sig/Vicente Route PRN Reason Start Time Stop Time Status Last Admin Dose Admin Acetaminophen (Tylenol) 650 mg PRN Q6HRS PRN PO MILD PAIN / TEMP > 100.3'F 06/05/20 16:45 08/20/20 15:27 DC 08/20/20 08:58 Multi-Ingredient Ointment (Analgesic [place]) 1 martina PRN QID PRN TP MUSCLE PAIN 06/05/20 16:45 Cancel Al Hydroxide/Mg Hydroxide (Mylanta Plus Xs) 15 ml PRN AFTMEALHC PRN PO DYSPEPSIA 06/05/20 16:45 06/06/20 17:08 DC Magnesium Hydroxide (Milk Of Magnesia) 2,400 mg PRN QHS PRN PO CONSTIPATION 06/05/20 16:45 Acetaminophen (Tylenol) 1,000 mg BID PO 06/05/20 21:00 06/25/20 12:00 DC 06/23/20 09:08 Amlodipine Besylate (Norvasc) 5 mg DAILY PO 06/06/20 09:00 09/01/20 07:52 Cetirizine HCl (ZyrTEC) 10 mg PRN DAILY PRN PO ALLERGIES 06/05/20 18:15 07/29/20 12:21 Cyclobenzaprine HCl (Flexeril) 10 mg PRN QHS PRN PO MUSCLE SPASMS 06/05/20 18:15 09/01/20 20:38 Diclofenac Sodium (Voltaren) 1 martina PRN Q6HRS PRN TP MUSCLE SKELETAL PAIN 06/05/20 18:15 09/01/20 14:41 Divalproex Sodium (Depakote Er) 1,000 mg QHS PO 06/05/20 21:00 06/07/20 11:57 DC 06/06/20 20:47 Al Hydroxide/Mg Hydroxide (Mylanta Plus Xs) 15 ml PRN AFTMEALHC PRN PO DYSPEPSIA 06/05/20 18:15 Metoprolol Succinate (Toprol Xl) 25 mg DAILY PO 06/06/20 09:00 09/01/20 07:52 Trazodone HCl (Desyrel) 50 mg QHS PO 06/05/20 21:00 09/01/20 20:38 Calcium Carbonate/ Glycine (Tums) 500 mg TIDAFTMEAL PO 06/05/20 18:45 09/01/20 17:29 Magnesium Hydroxide (Milk Of Magnesia) 2,400 mg PRN QHS PRN PO CONSTIPATION 06/05/20 18:45 06/06/20 17:08 DC Multi-Ingredient Ointment (Analgesic [place]) 1 martina PRN QID PRN TP MUSCLE PAIN 06/05/20 18:45 06/06/20 17:09 DC Divalproex Sodium (Depakote Er) 1,250 mg QHS PO 06/07/20 21:00 06/15/20 19:47 DC 06/14/20 20:16 Vitamin D (Vitamin D3) 50,000 unit WEEKLY PO 06/07/20 17:15 08/30/20 08:28 Atorvastatin Calcium (Lipitor) 10 mg QHS PO 06/07/20 21:00 09/01/20 20:38 Quetiapine Fumarate (SEROquel) 25 mg QHS PO 06/09/20 21:00 09/01/20 20:38 Divalproex Sodium (Depakote Er) 250 mg QHS PO 06/15/20 21:00 06/21/20 17:39 DC 06/20/20 20:20 Divalproex Sodium (Depakote Er) 1,000 mg QHS PO 06/15/20 21:00 06/21/20 17:39 DC 06/20/20 20:21 Gabapentin (Neurontin) 300 mg BID PO 06/21/20 21:00 09/01/20 20:38 Acetaminophen/ Hydrocodone Bitart (Lortab 5/325) 1 tab PRN Q6HRS PRN PO MOD-SEV PAIN 08/17/20 17:15 09/01/20 20:38 Acetaminophen (Tylenol) 1,300 mg PRN Q8HRS PRN PO MILD PAIN / TEMP > 100.3'F 08/20/20 15:30 08/27/20 19:41 DC Acetaminophen (Tylenol) 650 mg PRN Q6HRS PRN PO MILD PAIN / TEMP > 100.3'F 08/27/20 19:45 I have reviewed the current psychotropics carefully including drug interactions. Risk benefit ratio favors no change other than as noted in my dictated progress note. Diagnosis: Problems: (1) Bipolar disorder, unspecified (2) Anxiety disorder, unspecified (3) Impulse control disorder, unspecified OBDULIA MOLINA MD Sep 02, 2020 08:02
[2020-09-02] MEDS: GABAPENTIN 300 MG CAPSULE. PO SCH ×2 (08:08→19:43)
[2020-09-02] MEDS: METOPROLOL SUCC 24HR ER 25 MG TAB.ER.24H. PO SCH (08:08)
[2020-09-02] MEDS: CALCIUM CARBONATE 500 MG TAB.CHEW PO SCH ×3 (08:09→17:12)
[2020-09-02] MEDS: amLODIPine BESYLATE 10 MG TABLET PO SCH (08:09)
[2020-09-02] MEDS: DICLOFENAC SODIUM 1% TOPICAL GEL 100GM TUBE. TP PRN (11:07)
[2020-09-02 16:08] VITALS: BP 135/71
[2020-09-02] MEDS: ACETAMINOPHEN 325 MG TABLET PO PRN (19:43)
[2020-09-02] MEDS: CYCLOBENZAPRINE 10 MG TABLET. PO PRN (19:43)
[2020-09-02] MEDS: QUEtiapine 25 MG TABLET. PO SCH (19:43)
[2020-09-02] MEDS: ATORVASTATIN CALCIUM 10 MG TABLET. PO SCH (19:43)
[2020-09-02] MEDS: traZODone 50 MG TABLET. PO SCH (19:43)
--- NOTE | 2020-09-02 20:56 | PDOC ---
Exam Note: Jassi Note: Please also refer to the separate dictated note~for this date of service dictated separately.~Patient seen individually. Discussed the patient with Nursing staff reviewed the chart.~Reviewed interim history and current functioning. Reviewed vital signs,~Labs/ Radiology~and current medications noted below. Continue current treatment with the changes noted in the dictated addendum note Assessment: Vital Signs/I&O: Vital Signs Date Time Temp Pulse Resp B/P (MAP) Pulse Ox O2 Delivery O2 Flow Rate FiO2 09/02/20 16:08 98.1 85 16 135/71 (92) 96 09/02/20 06:18 Room Air I & O 09/01/20 09/01/20 09/02/20 15:00 23:00 07:00 Intake Total 720 ml 600 ml Balance 720 ml 600 ml Current Medications: Meds: Current Medications Medications (Trade) Dose Ordered Sig/Vicente Route PRN Reason Start Time Stop Time Status Last Admin Dose Admin Acetaminophen (Tylenol) 650 mg PRN Q6HRS PRN PO MILD PAIN / TEMP > 100.3'F 06/05/20 16:45 08/20/20 15:27 DC 08/20/20 08:58 Multi-Ingredient Ointment (Analgesic [place]) 1 martina PRN QID PRN TP MUSCLE PAIN 06/05/20 16:45 Cancel Al Hydroxide/Mg Hydroxide (Mylanta Plus Xs) 15 ml PRN AFTMEALHC PRN PO DYSPEPSIA 06/05/20 16:45 06/06/20 17:08 DC Magnesium Hydroxide (Milk Of Magnesia) 2,400 mg PRN QHS PRN PO CONSTIPATION 06/05/20 16:45 Acetaminophen (Tylenol) 1,000 mg BID PO 06/05/20 21:00 06/25/20 12:00 DC 06/23/20 09:08 Amlodipine Besylate (Norvasc) 5 mg DAILY PO 06/06/20 09:00 09/02/20 08:09 Cetirizine HCl (ZyrTEC) 10 mg PRN DAILY PRN PO ALLERGIES 06/05/20 18:15 07/29/20 12:21 Cyclobenzaprine HCl (Flexeril) 10 mg PRN QHS PRN PO MUSCLE SPASMS 06/05/20 18:15 09/02/20 19:43 Diclofenac Sodium (Voltaren) 1 martina PRN Q6HRS PRN TP MUSCLE SKELETAL PAIN 06/05/20 18:15 09/02/20 11:07 Divalproex Sodium (Depakote Er) 1,000 mg QHS PO 06/05/20 21:00 06/07/20 11:57 DC 06/06/20 20:47 Al Hydroxide/Mg Hydroxide (Mylanta Plus Xs) 15 ml PRN AFTMEALHC PRN PO DYSPEPSIA 06/05/20 18:15 Metoprolol Succinate (Toprol Xl) 25 mg DAILY PO 06/06/20 09:00 09/02/20 08:08 Trazodone HCl (Desyrel) 50 mg QHS PO 06/05/20 21:00 09/02/20 19:43 Calcium Carbonate/ Glycine (Tums) 500 mg TIDAFTMEAL PO 06/05/20 18:45 09/02/20 17:12 Magnesium Hydroxide (Milk Of Magnesia) 2,400 mg PRN QHS PRN PO CONSTIPATION 06/05/20 18:45 06/06/20 17:08 DC Multi-Ingredient Ointment (Analgesic [place]) 1 martina PRN QID PRN TP MUSCLE PAIN 06/05/20 18:45 06/06/20 17:09 DC Divalproex Sodium (Depakote Er) 1,250 mg QHS PO 06/07/20 21:00 06/15/20 19:47 DC 06/14/20 20:16 Vitamin D (Vitamin D3) 50,000 unit WEEKLY PO 06/07/20 17:15 08/30/20 08:28 Atorvastatin Calcium (Lipitor) 10 mg QHS PO 06/07/20 21:00 09/02/20 19:43 Quetiapine Fumarate (SEROquel) 25 mg QHS PO 06/09/20 21:00 09/02/20 19:43 Divalproex Sodium (Depakote Er) 250 mg QHS PO 06/15/20 21:00 06/21/20 17:39 DC 06/20/20 20:20 Divalproex Sodium (Depakote Er) 1,000 mg QHS PO 06/15/20 21:00 06/21/20 17:39 DC 06/20/20 20:21 Gabapentin (Neurontin) 300 mg BID PO 06/21/20 21:00 09/02/20 19:43 Acetaminophen/ Hydrocodone Bitart (Lortab 5/325) 1 tab PRN Q6HRS PRN PO MOD-SEV PAIN 08/17/20 17:15 09/01/20 20:38 Acetaminophen (Tylenol) 1,300 mg PRN Q8HRS PRN PO MILD PAIN / TEMP > 100.3'F 08/20/20 15:30 08/27/20 19:41 DC Acetaminophen (Tylenol) 650 mg PRN Q6HRS PRN PO MILD PAIN / TEMP > 100.3'F 08/27/20 19:45 09/02/20 19:43 I have reviewed the current psychotropics carefully including drug interactions. Risk benefit ratio favors no change other than as noted in my dictated progress note. Diagnosis: Problems: (1) Bipolar disorder, unspecified (2) Impulse control disorder, unspecified (3) Anxiety disorder, unspecified OBDULIA MOLINA MD Sep 02, 2020 20:56
[2020-09-03 06:04] VITALS: BP 131/76
[2020-09-03] MEDS: CALCIUM CARBONATE 500 MG TAB.CHEW PO SCH ×3 (08:08→18:00)
[2020-09-03] MEDS: METOPROLOL SUCC 24HR ER 25 MG TAB.ER.24H. PO SCH (08:08)
[2020-09-03] MEDS: amLODIPine BESYLATE 10 MG TABLET PO SCH (08:08)
[2020-09-03] MEDS: GABAPENTIN 300 MG CAPSULE. PO SCH ×2 (08:09→20:06)
--- NOTE | 2020-09-03 08:17 | PDOC ---
Exam Note: Jassi Note: This note is a late entry for 09/02/2020 covers elements not covered in my initial note. Subjective: The patient was reviewed on telehealth rounds in the evening of 09/02/2020 with Michelle HOLLINGSWORTH. Discussed with nursing staff, reviewed the chart. He slept 3-1/2 hours previous night. The patient has been fairly cooperative, but last evening he was hoarding different things. He is getting quite bored staying here. Social service staff are actively looking for placement for him with the daughter. Review of Systems: No back pain, knee pain. No CV, , pulmonary, eye, ENT system symptoms on review. Mental Status Exam: The patient is alert and oriented. Speech is coherent. He is pleasant, cooperative, smiling. Abstraction is fair. Computation impaired. Language function intact. Attention span is fair. Mood and affect is improved. No suicidal or homicidal ideation. Laboratory Data: Reviewed. Impression: Bipolar disorder unspecified. Anxiety disorder unspecified. Impulse control disorder. Plan: No change from initial note. Assessment: Vital Signs/I&O: Vital Signs Date Time Temp Pulse Resp B/P (MAP) Pulse Ox O2 Delivery O2 Flow Rate FiO2 09/03/20 08:08 67 131/76 09/03/20 06:04 97.7 16 98 09/02/20 06:18 Room Air I & O 09/02/20 09/02/20 09/03/20 15:00 23:00 07:00 Intake Total 840 ml 480 ml Balance 840 ml 480 ml Current Medications: Meds: Current Medications Medications (Trade) Dose Ordered Sig/Vicente Route PRN Reason Start Time Stop Time Status Last Admin Dose Admin Acetaminophen (Tylenol) 650 mg PRN Q6HRS PRN PO MILD PAIN / TEMP > 100.3'F 06/05/20 16:45 08/20/20 15:27 DC 08/20/20 08:58 Multi-Ingredient Ointment (Analgesic [place]) 1 martina PRN QID PRN TP MUSCLE PAIN 06/05/20 16:45 Cancel Al Hydroxide/Mg Hydroxide (Mylanta Plus Xs) 15 ml PRN AFTMEALHC PRN PO DYSPEPSIA 06/05/20 16:45 06/06/20 17:08 DC Magnesium Hydroxide (Milk Of Magnesia) 2,400 mg PRN QHS PRN PO CONSTIPATION 06/05/20 16:45 Acetaminophen (Tylenol) 1,000 mg BID PO 06/05/20 21:00 06/25/20 12:00 DC 06/23/20 09:08 Amlodipine Besylate (Norvasc) 5 mg DAILY PO 06/06/20 09:00 09/03/20 08:08 Cetirizine HCl (ZyrTEC) 10 mg PRN DAILY PRN PO ALLERGIES 06/05/20 18:15 07/29/20 12:21 Cyclobenzaprine HCl (Flexeril) 10 mg PRN QHS PRN PO MUSCLE SPASMS 06/05/20 18:15 09/02/20 19:43 Diclofenac Sodium (Voltaren) 1 martina PRN Q6HRS PRN TP MUSCLE SKELETAL PAIN 06/05/20 18:15 09/02/20 11:07 Divalproex Sodium (Depakote Er) 1,000 mg QHS PO 06/05/20 21:00 06/07/20 11:57 DC 06/06/20 20:47 Al Hydroxide/Mg Hydroxide (Mylanta Plus Xs) 15 ml PRN AFTMEALHC PRN PO DYSPEPSIA 06/05/20 18:15 Metoprolol Succinate (Toprol Xl) 25 mg DAILY PO 06/06/20 09:00 09/03/20 08:08 Trazodone HCl (Desyrel) 50 mg QHS PO 06/05/20 21:00 09/02/20 19:43 Calcium Carbonate/ Glycine (Tums) 500 mg TIDAFTMEAL PO 06/05/20 18:45 09/03/20 08:08 Magnesium Hydroxide (Milk Of Magnesia) 2,400 mg PRN QHS PRN PO CONSTIPATION 06/05/20 18:45 06/06/20 17:08 DC Multi-Ingredient Ointment (Analgesic [place]) 1 martina PRN QID PRN TP MUSCLE PAIN 06/05/20 18:45 06/06/20 17:09 DC Divalproex Sodium (Depakote Er) 1,250 mg QHS PO 06/07/20 21:00 06/15/20 19:47 DC 06/14/20 20:16 Vitamin D (Vitamin D3) 50,000 unit WEEKLY PO 06/07/20 17:15 08/30/20 08:28 Atorvastatin Calcium (Lipitor) 10 mg QHS PO 06/07/20 21:00 09/02/20 19:43 Quetiapine Fumarate (SEROquel) 25 mg QHS PO 06/09/20 21:00 09/02/20 19:43 Divalproex Sodium (Depakote Er) 250 mg QHS PO 06/15/20 21:00 06/21/20 17:39 DC 06/20/20 20:20 Divalproex Sodium (Depakote Er) 1,000 mg QHS PO 06/15/20 21:00 06/21/20 17:39 DC 06/20/20 20:21 Gabapentin (Neurontin) 300 mg BID PO 06/21/20 21:00 09/03/20 08:09 Acetaminophen/ Hydrocodone Bitart (Lortab 5/325) 1 tab PRN Q6HRS PRN PO MOD-SEV PAIN 08/17/20 17:15 09/01/20 20:38 Acetaminophen (Tylenol) 1,300 mg PRN Q8HRS PRN PO MILD PAIN / TEMP > 100.3'F 08/20/20 15:30 08/27/20 19:41 DC Acetaminophen (Tylenol) 650 mg PRN Q6HRS PRN PO MILD PAIN / TEMP > 100.3'F 08/27/20 19:45 09/02/20 19:43 I have reviewed the current psychotropics carefully including drug interactions. Risk benefit ratio favors no change other than as noted in my dictated progress note. Diagnosis: Problems: (1) Bipolar disorder, unspecified (2) Anxiety disorder, unspecified (3) Impulse control disorder, unspecified OBDULIA MOLINA MD Sep 03, 2020 08:17
[2020-09-03 16:22] VITALS: BP 170/83
[2020-09-03] MEDS: ACETAMINOPHEN 325 MG TABLET PO PRN (20:05)
[2020-09-03] MEDS: CYCLOBENZAPRINE 10 MG TABLET. PO PRN (20:05)
[2020-09-03] MEDS: ATORVASTATIN CALCIUM 10 MG TABLET. PO SCH (20:06)
[2020-09-03] MEDS: traZODone 50 MG TABLET. PO SCH (20:06)
[2020-09-03] MEDS: QUEtiapine 25 MG TABLET. PO SCH (20:06)
--- NOTE | 2020-09-03 21:03 | PDOC ---
Exam Note: Jassi Note: Please also refer to the separate dictated note~for this date of service dictated separately.~Patient seen individually. Discussed the patient with Nursing staff reviewed the chart.~Reviewed interim history and current functioning. Reviewed vital signs,~Labs/ Radiology~and current medications noted below. Continue current treatment with the changes noted in the dictated addendum note Assessment: Vital Signs/I&O: Vital Signs Date Time Temp Pulse Resp B/P (MAP) Pulse Ox O2 Delivery O2 Flow Rate FiO2 09/03/20 16:22 97.7 92 20 170/83 (112) 97 Room Air I & O 09/02/20 09/02/20 09/03/20 15:00 23:00 07:00 Intake Total 840 ml 480 ml Balance 840 ml 480 ml Current Medications: Meds: Current Medications Medications (Trade) Dose Ordered Sig/Vicente Route PRN Reason Start Time Stop Time Status Last Admin Dose Admin Acetaminophen (Tylenol) 650 mg PRN Q6HRS PRN PO MILD PAIN / TEMP > 100.3'F 06/05/20 16:45 08/20/20 15:27 DC 08/20/20 08:58 Multi-Ingredient Ointment (Analgesic [place]) 1 martina PRN QID PRN TP MUSCLE PAIN 06/05/20 16:45 Cancel Al Hydroxide/Mg Hydroxide (Mylanta Plus Xs) 15 ml PRN AFTMEALHC PRN PO DYSPEPSIA 06/05/20 16:45 06/06/20 17:08 DC Magnesium Hydroxide (Milk Of Magnesia) 2,400 mg PRN QHS PRN PO CONSTIPATION 06/05/20 16:45 Acetaminophen (Tylenol) 1,000 mg BID PO 06/05/20 21:00 06/25/20 12:00 DC 06/23/20 09:08 Amlodipine Besylate (Norvasc) 5 mg DAILY PO 06/06/20 09:00 09/03/20 08:08 Cetirizine HCl (ZyrTEC) 10 mg PRN DAILY PRN PO ALLERGIES 06/05/20 18:15 07/29/20 12:21 Cyclobenzaprine HCl (Flexeril) 10 mg PRN QHS PRN PO MUSCLE SPASMS 06/05/20 18:15 09/03/20 20:05 Diclofenac Sodium (Voltaren) 1 martina PRN Q6HRS PRN TP MUSCLE SKELETAL PAIN 06/05/20 18:15 09/02/20 11:07 Divalproex Sodium (Depakote Er) 1,000 mg QHS PO 06/05/20 21:00 06/07/20 11:57 DC 06/06/20 20:47 Al Hydroxide/Mg Hydroxide (Mylanta Plus Xs) 15 ml PRN AFTMEALHC PRN PO DYSPEPSIA 06/05/20 18:15 Metoprolol Succinate (Toprol Xl) 25 mg DAILY PO 06/06/20 09:00 09/03/20 08:08 Trazodone HCl (Desyrel) 50 mg QHS PO 06/05/20 21:00 09/03/20 20:06 Calcium Carbonate/ Glycine (Tums) 500 mg TIDAFTMEAL PO 06/05/20 18:45 09/03/20 18:00 Magnesium Hydroxide (Milk Of Magnesia) 2,400 mg PRN QHS PRN PO CONSTIPATION 06/05/20 18:45 06/06/20 17:08 DC Multi-Ingredient Ointment (Analgesic [place]) 1 martina PRN QID PRN TP MUSCLE PAIN 06/05/20 18:45 06/06/20 17:09 DC Divalproex Sodium (Depakote Er) 1,250 mg QHS PO 06/07/20 21:00 06/15/20 19:47 DC 06/14/20 20:16 Vitamin D (Vitamin D3) 50,000 unit WEEKLY PO 06/07/20 17:15 08/30/20 08:28 Atorvastatin Calcium (Lipitor) 10 mg QHS PO 06/07/20 21:00 09/03/20 20:06 Quetiapine Fumarate (SEROquel) 25 mg QHS PO 06/09/20 21:00 09/03/20 20:06 Divalproex Sodium (Depakote Er) 250 mg QHS PO 06/15/20 21:00 06/21/20 17:39 DC 06/20/20 20:20 Divalproex Sodium (Depakote Er) 1,000 mg QHS PO 06/15/20 21:00 06/21/20 17:39 DC 06/20/20 20:21 Gabapentin (Neurontin) 300 mg BID PO 06/21/20 21:00 09/03/20 20:06 Acetaminophen/ Hydrocodone Bitart (Lortab 5/325) 1 tab PRN Q6HRS PRN PO MOD-SEV PAIN 08/17/20 17:15 09/01/20 20:38 Acetaminophen (Tylenol) 1,300 mg PRN Q8HRS PRN PO MILD PAIN / TEMP > 100.3'F 08/20/20 15:30 08/27/20 19:41 DC Acetaminophen (Tylenol) 650 mg PRN Q6HRS PRN PO MILD PAIN / TEMP > 100.3'F 08/27/20 19:45 09/03/20 20:05 I have reviewed the current psychotropics carefully including drug interactions. Risk benefit ratio favors no change other than as noted in my dictated progress note. Diagnosis: Problems: (1) Anxiety disorder, unspecified (2) Impulse control disorder, unspecified (3) Bipolar disorder, unspecified OBDULIA MOLINA MD Sep 03, 2020 21:03
[2020-09-04 00:09] LABS: ALKPHOS BONE 33 % (12-68); ALKPHOS INTES% 0 % (0-18); ALKPHOS LIV 67 % (13-88); ALPHOS TOT 212 IU/L (39-117)
[2020-09-04 05:52] VITALS: BP 143/85
[2020-09-04 07:26] LABS: BASO # 0.1 x10^3/uL (0.0-0.2); BASO % 1 % (0-3); EOS # 0.4 x10^3/uL (0.0-0.7); EOS % 6 % (0-3); HEMATOCRIT 40.4 % (39.0-53.0); HEMOGLOBIN 13.6 g/dL (13.0-17.5); LYMPH # 1.5 x10^3/uL (1.0-4.8); LYMPH % 24 % (24-48); MEAN CORPUSCULAR HEMOGLOBIN 31 pg (25-35); MEAN CORPUSCULAR HGB CONC 34 g/dL (31-37); MEAN CORPUSCULAR VOLUME 91 fL (79-100); MONO # 0.9 x10^3/uL (0.0-1.1); MONO % 14 % (0-9); NEUT # 3.3 x10^3uL (1.8-7.7); NEUT % 54 % (31-73); PLATELET COUNT 313 x10^3/uL (140-400); RED BLOOD COUNT 4.43 x10^6/uL (4.30-5.70); WHITE BLOOD COUNT 6.1 x10^3/uL (4.0-11.0)
--- NOTE | 2020-09-04 07:28 | PDOC ---
Exam Note: Jassi Note: This note is a late entry for 09/03/2020 covers elements not covered in my initial note. Subjective: The patient was reviewed on telehealth rounds in the evening of 09/03/2020 with Zuleima HOLLINGSWORTH. Discussed with nursing staff, reviewed the chart. He slept 8-1/2 hours previous night. Reportedly the patient is doing reasonably well though previous evening he was a little irritable with staff but redirected. Review of Systems: No complaints of back or knee pain. No CV, , pulmonary, eye, ENT system symptoms on review. Mental Status Exam: The patient is alert and oriented. He is pleasant, verbal, interactive. Abstraction is fair. Computation impaired. Language function intact. Attention span is fair. Mood and affect is improved. No suicidal or homicidal ideation. Laboratory Data: Reviewed. Impression: Bipolar disorder unspecified. Anxiety disorder unspecified. Impulse control disorder. Plan: Social service staff are actively finding placement in coordination with his daughter. Assessment: Vital Signs/I&O: Vital Signs Date Time Temp Pulse Resp B/P (MAP) Pulse Ox O2 Delivery O2 Flow Rate FiO2 09/04/20 05:52 96.8 64 16 143/85 (104) 95 Room Air I & O 09/03/20 09/03/20 09/04/20 15:00 23:00 07:00 Intake Total 720 ml 480 ml Balance 720 ml 480 ml Current Medications: Meds: Current Medications Medications (Trade) Dose Ordered Sig/Vicente Route PRN Reason Start Time Stop Time Status Last Admin Dose Admin Acetaminophen (Tylenol) 650 mg PRN Q6HRS PRN PO MILD PAIN / TEMP > 100.3'F 06/05/20 16:45 08/20/20 15:27 DC 08/20/20 08:58 Multi-Ingredient Ointment (Analgesic [place]) 1 martina PRN QID PRN TP MUSCLE PAIN 06/05/20 16:45 Cancel Al Hydroxide/Mg Hydroxide (Mylanta Plus Xs) 15 ml PRN AFTMEALHC PRN PO DYSPEPSIA 06/05/20 16:45 06/06/20 17:08 DC Magnesium Hydroxide (Milk Of Magnesia) 2,400 mg PRN QHS PRN PO CONSTIPATION 06/05/20 16:45 Acetaminophen (Tylenol) 1,000 mg BID PO 06/05/20 21:00 06/25/20 12:00 DC 06/23/20 09:08 Amlodipine Besylate (Norvasc) 5 mg DAILY PO 06/06/20 09:00 09/03/20 08:08 Cetirizine HCl (ZyrTEC) 10 mg PRN DAILY PRN PO ALLERGIES 06/05/20 18:15 07/29/20 12:21 Cyclobenzaprine HCl (Flexeril) 10 mg PRN QHS PRN PO MUSCLE SPASMS 06/05/20 18:15 09/03/20 20:05 Diclofenac Sodium (Voltaren) 1 martina PRN Q6HRS PRN TP MUSCLE SKELETAL PAIN 06/05/20 18:15 09/02/20 11:07 Divalproex Sodium (Depakote Er) 1,000 mg QHS PO 06/05/20 21:00 06/07/20 11:57 DC 06/06/20 20:47 Al Hydroxide/Mg Hydroxide (Mylanta Plus Xs) 15 ml PRN AFTMEALHC PRN PO DYSPEPSIA 06/05/20 18:15 Metoprolol Succinate (Toprol Xl) 25 mg DAILY PO 06/06/20 09:00 09/03/20 08:08 Trazodone HCl (Desyrel) 50 mg QHS PO 06/05/20 21:00 09/03/20 20:06 Calcium Carbonate/ Glycine (Tums) 500 mg TIDAFTMEAL PO 06/05/20 18:45 09/03/20 18:00 Magnesium Hydroxide (Milk Of Magnesia) 2,400 mg PRN QHS PRN PO CONSTIPATION 06/05/20 18:45 06/06/20 17:08 DC Multi-Ingredient Ointment (Analgesic [place]) 1 martina PRN QID PRN TP MUSCLE PAIN 06/05/20 18:45 06/06/20 17:09 DC Divalproex Sodium (Depakote Er) 1,250 mg QHS PO 06/07/20 21:00 06/15/20 19:47 DC 06/14/20 20:16 Vitamin D (Vitamin D3) 50,000 unit WEEKLY PO 06/07/20 17:15 08/30/20 08:28 Atorvastatin Calcium (Lipitor) 10 mg QHS PO 06/07/20 21:00 09/03/20 20:06 Quetiapine Fumarate (SEROquel) 25 mg QHS PO 06/09/20 21:00 09/03/20 20:06 Divalproex Sodium (Depakote Er) 250 mg QHS PO 06/15/20 21:00 06/21/20 17:39 DC 06/20/20 20:20 Divalproex Sodium (Depakote Er) 1,000 mg QHS PO 06/15/20 21:00 06/21/20 17:39 DC 06/20/20 20:21 Gabapentin (Neurontin) 300 mg BID PO 06/21/20 21:00 09/03/20 20:06 Acetaminophen/ Hydrocodone Bitart (Lortab 5/325) 1 tab PRN Q6HRS PRN PO MOD-SEV PAIN 08/17/20 17:15 09/01/20 20:38 Acetaminophen (Tylenol) 1,300 mg PRN Q8HRS PRN PO MILD PAIN / TEMP > 100.3'F 08/20/20 15:30 08/27/20 19:41 DC Acetaminophen (Tylenol) 650 mg PRN Q6HRS PRN PO MILD PAIN / TEMP > 100.3'F 08/27/20 19:45 09/03/20 20:05 I have reviewed the current psychotropics carefully including drug interactions. Risk benefit ratio favors no change other than as noted in my dictated progress note. Diagnosis: Problems: (1) Bipolar disorder, unspecified (2) Anxiety disorder, unspecified (3) Impulse control disorder, unspecified OBDULIA MOLINA MD Sep 04, 2020 07:28
[2020-09-04] MEDS: CALCIUM CARBONATE 500 MG TAB.CHEW PO SCH ×3 (08:05→17:09)
[2020-09-04] MEDS: METOPROLOL SUCC 24HR ER 25 MG TAB.ER.24H. PO SCH (08:06)
[2020-09-04] MEDS: GABAPENTIN 300 MG CAPSULE. PO SCH ×2 (08:06→19:55)
[2020-09-04] MEDS: amLODIPine BESYLATE 10 MG TABLET PO SCH (08:06)
[2020-09-04 09:16] LABS: ALBUMIN 3.4 g/dL (3.4-5.0); GFR 73.7; POTASSIUM 3.9 mmol/L (3.5-5.1); TOTAL BILIRUBIN 0.3 mg/dL (0.2-1.0); TOTAL PROTEIN 6.9 g/dL (6.4-8.2)
[2020-09-04 16:07] VITALS: BP 136/80
[2020-09-04] MEDS: DICLOFENAC SODIUM 1% TOPICAL GEL 100GM TUBE. TP PRN (18:47)
[2020-09-04] MEDS: CYCLOBENZAPRINE 10 MG TABLET. PO PRN (19:55)
[2020-09-04] MEDS: traZODone 50 MG TABLET. PO SCH (19:55)
[2020-09-04] MEDS: QUEtiapine 25 MG TABLET. PO SCH (19:55)
[2020-09-04] MEDS: ACETAMINOPHEN 325 MG TABLET PO PRN (19:55)
[2020-09-04] MEDS: ATORVASTATIN CALCIUM 10 MG TABLET. PO SCH (19:55)
--- NOTE | 2020-09-04 20:46 | PDOC ---
Exam Note: Jassi Note: Please also refer to the separate dictated note~for this date of service dictated separately.~Patient seen individually. Discussed the patient with Nursing staff reviewed the chart.~Reviewed interim history and current functioning. Reviewed vital signs,~Labs/ Radiology~and current medications noted below. Continue current treatment with the changes noted in the dictated addendum note Assessment: Vital Signs/I&O: Vital Signs Date Time Temp Pulse Resp B/P (MAP) Pulse Ox O2 Delivery O2 Flow Rate FiO2 09/04/20 16:07 97.8 101 20 136/80 (98) 98 09/04/20 05:52 Room Air I & O 09/03/20 09/03/20 09/04/20 15:00 23:00 07:00 Intake Total 720 ml 480 ml Balance 720 ml 480 ml Labs: Laboratory Tests Test 09/04/20 06:39 White Blood Count 6.1 x10^3/uL (4.0-11.0) Red Blood Count 4.43 x10^6/uL (4.30-5.70) Hemoglobin 13.6 g/dL (13.0-17.5) Hematocrit 40.4 % (39.0-53.0) Mean Corpuscular Volume 91 fL (79-100) Mean Corpuscular Hemoglobin 31 pg (25-35) Mean Corpuscular Hemoglobin Concent 34 g/dL (31-37) Red Cell Distribution Width 13.0 % (11.5-14.5) Platelet Count 313 x10^3/uL (140-400) Neutrophils (%) (Auto) 54 % (31-73) Lymphocytes (%) (Auto) 24 % (24-48) Monocytes (%) (Auto) 14 % (0-9) H Eosinophils (%) (Auto) 6 % (0-3) H Basophils (%) (Auto) 1 % (0-3) Neutrophils # (Auto) 3.3 x10^3uL (1.8-7.7) Lymphocytes # (Auto) 1.5 x10^3/uL (1.0-4.8) Monocytes # (Auto) 0.9 x10^3/uL (0.0-1.1) Eosinophils # (Auto) 0.4 x10^3/uL (0.0-0.7) Basophils # (Auto) 0.1 x10^3/uL (0.0-0.2) Sodium Level 143 mmol/L (136-145) Potassium Level 3.9 mmol/L (3.5-5.1) Chloride Level 107 mmol/L (98-107) Carbon Dioxide Level 30 mmol/L (21-32) Anion Gap 6 (6-14) Blood Urea Nitrogen 14 mg/dL (8-26) Creatinine 1.0 mg/dL (0.7-1.3) Estimated GFR (Cockcroft-Gault) 73.7 BUN/Creatinine Ratio 14 (6-20) Glucose Level 107 mg/dL (70-99) H Calcium Level 9.0 mg/dL (8.5-10.1) Total Bilirubin 0.3 mg/dL (0.2-1.0) Aspartate Amino Transferase (AST) 29 U/L (15-37) Alanine Aminotransferase (ALT) 60 U/L (16-63) Alkaline Phosphatase 194 U/L (46-116) H Total Protein 6.9 g/dL (6.4-8.2) Albumin 3.4 g/dL (3.4-5.0) Albumin/Globulin Ratio 1.0 (1.0-1.7) Current Medications: Meds: Laboratory Tests Test 09/04/20 06:39 White Blood Count 6.1 x10^3/uL Red Blood Count 4.43 x10^6/uL Hemoglobin 13.6 g/dL Hematocrit 40.4 % Mean Corpuscular Volume 91 fL Mean Corpuscular Hemoglobin 31 pg Mean Corpuscular Hemoglobin Concent 34 g/dL Red Cell Distribution Width 13.0 % Platelet Count 313 x10^3/uL Neutrophils (%) (Auto) 54 % Lymphocytes (%) (Auto) 24 % Monocytes (%) (Auto) 14 % Eosinophils (%) (Auto) 6 % Basophils (%) (Auto) 1 % Neutrophils # (Auto) 3.3 x10^3uL Lymphocytes # (Auto) 1.5 x10^3/uL Monocytes # (Auto) 0.9 x10^3/uL Eosinophils # (Auto) 0.4 x10^3/uL Basophils # (Auto) 0.1 x10^3/uL Sodium Level 143 mmol/L Potassium Level 3.9 mmol/L Chloride Level 107 mmol/L Carbon Dioxide Level 30 mmol/L Anion Gap 6 Blood Urea Nitrogen 14 mg/dL Creatinine 1.0 mg/dL Estimated GFR (Cockcroft-Gault) 73.7 BUN/Creatinine Ratio 14 Glucose Level 107 mg/dL Calcium Level 9.0 mg/dL Total Bilirubin 0.3 mg/dL Aspartate Amino Transf (AST/SGOT) 29 U/L Alanine Aminotransferase (ALT/SGPT) 60 U/L Alkaline Phosphatase 194 U/L Total Protein 6.9 g/dL Albumin 3.4 g/dL Albumin/Globulin Ratio 1.0 Current Medications Medications (Trade) Dose Ordered Sig/Vicente Route PRN Reason Start Time Stop Time Status Last Admin Dose Admin Acetaminophen (Tylenol) 650 mg PRN Q6HRS PRN PO MILD PAIN / TEMP > 100.3'F 06/05/20 16:45 08/20/20 15:27 DC 08/20/20 08:58 Multi-Ingredient Ointment (Analgesic [place]) 1 martina PRN QID PRN TP MUSCLE PAIN 06/05/20 16:45 Cancel Al Hydroxide/Mg Hydroxide (Mylanta Plus Xs) 15 ml PRN AFTMEALHC PRN PO DYSPEPSIA 06/05/20 16:45 06/06/20 17:08 DC Magnesium Hydroxide (Milk Of Magnesia) 2,400 mg PRN QHS PRN PO CONSTIPATION 06/05/20 16:45 Acetaminophen (Tylenol) 1,000 mg BID PO 06/05/20 21:00 06/25/20 12:00 DC 06/23/20 09:08 Amlodipine Besylate (Norvasc) 5 mg DAILY PO 06/06/20 09:00 09/04/20 08:06 Cetirizine HCl (ZyrTEC) 10 mg PRN DAILY PRN PO ALLERGIES 06/05/20 18:15 07/29/20 12:21 Cyclobenzaprine HCl (Flexeril) 10 mg PRN QHS PRN PO MUSCLE SPASMS 06/05/20 18:15 09/04/20 19:55 Diclofenac Sodium (Voltaren) 1 martina PRN Q6HRS PRN TP MUSCLE SKELETAL PAIN 06/05/20 18:15 09/04/20 18:47 Divalproex Sodium (Depakote Er) 1,000 mg QHS PO 06/05/20 21:00 06/07/20 11:57 DC 06/06/20 20:47 Al Hydroxide/Mg Hydroxide (Mylanta Plus Xs) 15 ml PRN AFTMEALHC PRN PO DYSPEPSIA 06/05/20 18:15 Metoprolol Succinate (Toprol Xl) 25 mg DAILY PO 06/06/20 09:00 09/04/20 08:06 Trazodone HCl (Desyrel) 50 mg QHS PO 06/05/20 21:00 09/04/20 19:55 Calcium Carbonate/ Glycine (Tums) 500 mg TIDAFTMEAL PO 06/05/20 18:45 09/04/20 17:09 Magnesium Hydroxide (Milk Of Magnesia) 2,400 mg PRN QHS PRN PO CONSTIPATION 06/05/20 18:45 06/06/20 17:08 DC Multi-Ingredient Ointment (Analgesic [place]) 1 martina PRN QID PRN TP MUSCLE PAIN 06/05/20 18:45 06/06/20 17:09 DC Divalproex Sodium (Depakote Er) 1,250 mg QHS PO 06/07/20 21:00 06/15/20 19:47 DC 06/14/20 20:16 Vitamin D (Vitamin D3) 50,000 unit WEEKLY PO 06/07/20 17:15 08/30/20 08:28 Atorvastatin Calcium (Lipitor) 10 mg QHS PO 06/07/20 21:00 09/04/20 19:55 Quetiapine Fumarate (SEROquel) 25 mg QHS PO 06/09/20 21:00 09/04/20 19:55 Divalproex Sodium (Depakote Er) 250 mg QHS PO 06/15/20 21:00 06/21/20 17:39 DC 06/20/20 20:20 Divalproex Sodium (Depakote Er) 1,000 mg QHS PO 06/15/20 21:00 06/21/20 17:39 DC 06/20/20 20:21 Gabapentin (Neurontin) 300 mg BID PO 06/21/20 21:00 09/04/20 19:55 Acetaminophen/ Hydrocodone Bitart (Lortab 5/325) 1 tab PRN Q6HRS PRN PO MOD-SEV PAIN 08/17/20 17:15 09/01/20 20:38 Acetaminophen (Tylenol) 1,300 mg PRN Q8HRS PRN PO MILD PAIN / TEMP > 100.3'F 08/20/20 15:30 08/27/20 19:41 DC Acetaminophen (Tylenol) 650 mg PRN Q6HRS PRN PO MILD PAIN / TEMP > 100.3'F 08/27/20 19:45 09/04/20 19:55 I have reviewed the current psychotropics carefully including drug interactions. Risk benefit ratio favors no change other than as noted in my dictated progress note. Diagnosis: Problems: (1) Bipolar disorder, unspecified (2) Anxiety disorder, unspecified (3) Impulse control disorder, unspecified OBDULIA MOLINA MD Sep 04, 2020 20:46
[2020-09-05 06:37] VITALS: BP 126/74
--- NOTE | 2020-09-05 07:34 | PDOC ---
Exam Note: Jassi Note: This note is a late entry for 09/04/2020 covers elements not covered in my initial note. Subjective: The patient was reviewed on telehealth rounds in the evening of 09/04/2020 with Zuleima HOLLINGSWORTH. Discussed with nursing staff, reviewed the chart. He slept 6-3/4 hours previous night. Overall the patient has done reasonably well. The patient has been pleasant, cooperative on the unit, smiling. He does complain of some back and knee pain but better than before. Review of Systems: No CV, , pulmonary, eye, ENT system symptoms on review. Mental Status Exam: The patient is alert and oriented. He is pleasant, verbal, interactive, smiling as I met with him. Abstraction is fair. Computation impaired. Language function intact. Attention span is fair. Mood and affect is improved. No suicidal or homicidal ideation. Laboratory Data: Reviewed. Impression: Bipolar disorder unspecified. Anxiety disorder unspecified. Impulse control disorder. Plan: No change from initial note. Assessment: Vital Signs/I&O: Vital Signs Date Time Temp Pulse Resp B/P (MAP) Pulse Ox O2 Delivery O2 Flow Rate FiO2 09/05/20 06:37 97.5 69 18 126/74 (91) 93 09/04/20 05:52 Room Air I & O 09/04/20 09/04/20 09/05/20 15:00 23:00 07:00 Intake Total 720 ml 720 ml Balance 720 ml 720 ml Current Medications: Meds: Current Medications Medications (Trade) Dose Ordered Sig/Vicente Route PRN Reason Start Time Stop Time Status Last Admin Dose Admin Acetaminophen (Tylenol) 650 mg PRN Q6HRS PRN PO MILD PAIN / TEMP > 100.3'F 06/05/20 16:45 08/20/20 15:27 DC 08/20/20 08:58 Multi-Ingredient Ointment (Analgesic [place]) 1 martina PRN QID PRN TP MUSCLE PAIN 06/05/20 16:45 Cancel Al Hydroxide/Mg Hydroxide (Mylanta Plus Xs) 15 ml PRN AFTMEALHC PRN PO DYSPEPSIA 06/05/20 16:45 06/06/20 17:08 DC Magnesium Hydroxide (Milk Of Magnesia) 2,400 mg PRN QHS PRN PO CONSTIPATION 06/05/20 16:45 Acetaminophen (Tylenol) 1,000 mg BID PO 06/05/20 21:00 06/25/20 12:00 DC 06/23/20 09:08 Amlodipine Besylate (Norvasc) 5 mg DAILY PO 06/06/20 09:00 09/04/20 08:06 Cetirizine HCl (ZyrTEC) 10 mg PRN DAILY PRN PO ALLERGIES 06/05/20 18:15 07/29/20 12:21 Cyclobenzaprine HCl (Flexeril) 10 mg PRN QHS PRN PO MUSCLE SPASMS 06/05/20 18:15 09/04/20 19:55 Diclofenac Sodium (Voltaren) 1 martina PRN Q6HRS PRN TP MUSCLE SKELETAL PAIN 06/05/20 18:15 09/04/20 18:47 Divalproex Sodium (Depakote Er) 1,000 mg QHS PO 06/05/20 21:00 06/07/20 11:57 DC 06/06/20 20:47 Al Hydroxide/Mg Hydroxide (Mylanta Plus Xs) 15 ml PRN AFTMEALHC PRN PO DYSPEPSIA 06/05/20 18:15 Metoprolol Succinate (Toprol Xl) 25 mg DAILY PO 06/06/20 09:00 09/04/20 08:06 Trazodone HCl (Desyrel) 50 mg QHS PO 06/05/20 21:00 09/04/20 19:55 Calcium Carbonate/ Glycine (Tums) 500 mg TIDAFTMEAL PO 06/05/20 18:45 09/04/20 17:09 Magnesium Hydroxide (Milk Of Magnesia) 2,400 mg PRN QHS PRN PO CONSTIPATION 06/05/20 18:45 06/06/20 17:08 DC Multi-Ingredient Ointment (Analgesic [place]) 1 martina PRN QID PRN TP MUSCLE PAIN 06/05/20 18:45 06/06/20 17:09 DC Divalproex Sodium (Depakote Er) 1,250 mg QHS PO 06/07/20 21:00 06/15/20 19:47 DC 06/14/20 20:16 Vitamin D (Vitamin D3) 50,000 unit WEEKLY PO 06/07/20 17:15 08/30/20 08:28 Atorvastatin Calcium (Lipitor) 10 mg QHS PO 06/07/20 21:00 09/04/20 19:55 Quetiapine Fumarate (SEROquel) 25 mg QHS PO 06/09/20 21:00 09/04/20 19:55 Divalproex Sodium (Depakote Er) 250 mg QHS PO 06/15/20 21:00 06/21/20 17:39 DC 06/20/20 20:20 Divalproex Sodium (Depakote Er) 1,000 mg QHS PO 06/15/20 21:00 06/21/20 17:39 DC 06/20/20 20:21 Gabapentin (Neurontin) 300 mg BID PO 06/21/20 21:00 09/04/20 19:55 Acetaminophen/ Hydrocodone Bitart (Lortab 5/325) 1 tab PRN Q6HRS PRN PO MOD-SEV PAIN 08/17/20 17:15 09/01/20 20:38 Acetaminophen (Tylenol) 1,300 mg PRN Q8HRS PRN PO MILD PAIN / TEMP > 100.3'F 08/20/20 15:30 08/27/20 19:41 DC Acetaminophen (Tylenol) 650 mg PRN Q6HRS PRN PO MILD PAIN / TEMP > 100.3'F 08/27/20 19:45 09/04/20 19:55 I have reviewed the current psychotropics carefully including drug interactions. Risk benefit ratio favors no change other than as noted in my dictated progress note. Diagnosis: Problems: (1) Bipolar disorder, unspecified (2) Anxiety disorder, unspecified (3) Impulse control disorder, unspecified OBDULIA MOLINA MD Sep 05, 2020 07:34
[2020-09-05] MEDS: GABAPENTIN 300 MG CAPSULE. PO SCH ×2 (07:55→20:12)
[2020-09-05] MEDS: CALCIUM CARBONATE 500 MG TAB.CHEW PO SCH ×3 (07:55→17:15)
[2020-09-05] MEDS: amLODIPine BESYLATE 10 MG TABLET PO SCH (07:56)
[2020-09-05] MEDS: METOPROLOL SUCC 24HR ER 25 MG TAB.ER.24H. PO SCH (07:56)
[2020-09-05] MEDS: DICLOFENAC SODIUM 1% TOPICAL GEL 100GM TUBE. TP PRN (09:59)
[2020-09-05 15:42] VITALS: BP 122/69
[2020-09-05] MEDS: ATORVASTATIN CALCIUM 10 MG TABLET. PO SCH (20:12)
[2020-09-05] MEDS: CYCLOBENZAPRINE 10 MG TABLET. PO PRN (20:12)
[2020-09-05] MEDS: traZODone 50 MG TABLET. PO SCH (20:13)
[2020-09-05] MEDS: QUEtiapine 25 MG TABLET. PO SCH (20:13)
--- NOTE | 2020-09-05 20:43 | PDOC ---
Exam Note: Jassi Note: Please also refer to the separate dictated note~for this date of service dictated separately.~Patient seen individually. Discussed the patient with Nursing staff reviewed the chart.~Reviewed interim history and current functioning. Reviewed vital signs,~Labs/ Radiology~and current medications noted below. Continue current treatment with the changes noted in the dictated addendum note Assessment: Vital Signs/I&O: Vital Signs Date Time Temp Pulse Resp B/P (MAP) Pulse Ox O2 Delivery O2 Flow Rate FiO2 09/05/20 15:42 98.3 96 17 122/69 (86) 95 09/04/20 05:52 Room Air I & O 09/04/20 09/04/20 09/05/20 15:00 23:00 07:00 Intake Total 720 ml 720 ml Balance 720 ml 720 ml Current Medications: Meds: Current Medications Medications (Trade) Dose Ordered Sig/Vicente Route PRN Reason Start Time Stop Time Status Last Admin Dose Admin Acetaminophen (Tylenol) 650 mg PRN Q6HRS PRN PO MILD PAIN / TEMP > 100.3'F 06/05/20 16:45 08/20/20 15:27 DC 08/20/20 08:58 Multi-Ingredient Ointment (Analgesic [place]) 1 martina PRN QID PRN TP MUSCLE PAIN 06/05/20 16:45 Cancel Al Hydroxide/Mg Hydroxide (Mylanta Plus Xs) 15 ml PRN AFTMEALHC PRN PO DYSPEPSIA 06/05/20 16:45 06/06/20 17:08 DC Magnesium Hydroxide (Milk Of Magnesia) 2,400 mg PRN QHS PRN PO CONSTIPATION 06/05/20 16:45 Acetaminophen (Tylenol) 1,000 mg BID PO 06/05/20 21:00 06/25/20 12:00 DC 06/23/20 09:08 Amlodipine Besylate (Norvasc) 5 mg DAILY PO 06/06/20 09:00 09/05/20 07:56 Cetirizine HCl (ZyrTEC) 10 mg PRN DAILY PRN PO ALLERGIES 06/05/20 18:15 07/29/20 12:21 Cyclobenzaprine HCl (Flexeril) 10 mg PRN QHS PRN PO MUSCLE SPASMS 06/05/20 18:15 09/05/20 20:12 Diclofenac Sodium (Voltaren) 1 martina PRN Q6HRS PRN TP MUSCLE SKELETAL PAIN 06/05/20 18:15 09/05/20 09:59 Divalproex Sodium (Depakote Er) 1,000 mg QHS PO 06/05/20 21:00 06/07/20 11:57 DC 06/06/20 20:47 Al Hydroxide/Mg Hydroxide (Mylanta Plus Xs) 15 ml PRN AFTMEALHC PRN PO DYSPEPSIA 06/05/20 18:15 Metoprolol Succinate (Toprol Xl) 25 mg DAILY PO 06/06/20 09:00 09/05/20 07:56 Trazodone HCl (Desyrel) 50 mg QHS PO 06/05/20 21:00 09/05/20 20:13 Calcium Carbonate/ Glycine (Tums) 500 mg TIDAFTMEAL PO 06/05/20 18:45 09/05/20 17:15 Magnesium Hydroxide (Milk Of Magnesia) 2,400 mg PRN QHS PRN PO CONSTIPATION 06/05/20 18:45 06/06/20 17:08 DC Multi-Ingredient Ointment (Analgesic [place]) 1 martina PRN QID PRN TP MUSCLE PAIN 06/05/20 18:45 06/06/20 17:09 DC Divalproex Sodium (Depakote Er) 1,250 mg QHS PO 06/07/20 21:00 06/15/20 19:47 DC 06/14/20 20:16 Vitamin D (Vitamin D3) 50,000 unit WEEKLY PO 06/07/20 17:15 08/30/20 08:28 Atorvastatin Calcium (Lipitor) 10 mg QHS PO 06/07/20 21:00 09/05/20 20:12 Quetiapine Fumarate (SEROquel) 25 mg QHS PO 06/09/20 21:00 09/05/20 20:13 Divalproex Sodium (Depakote Er) 250 mg QHS PO 06/15/20 21:00 06/21/20 17:39 DC 06/20/20 20:20 Divalproex Sodium (Depakote Er) 1,000 mg QHS PO 06/15/20 21:00 06/21/20 17:39 DC 06/20/20 20:21 Gabapentin (Neurontin) 300 mg BID PO 06/21/20 21:00 09/05/20 20:12 Acetaminophen/ Hydrocodone Bitart (Lortab 5/325) 1 tab PRN Q6HRS PRN PO MOD-SEV PAIN 08/17/20 17:15 09/01/20 20:38 Acetaminophen (Tylenol) 1,300 mg PRN Q8HRS PRN PO MILD PAIN / TEMP > 100.3'F 08/20/20 15:30 08/27/20 19:41 DC Acetaminophen (Tylenol) 650 mg PRN Q6HRS PRN PO MILD PAIN / TEMP > 100.3'F 08/27/20 19:45 09/04/20 19:55 I have reviewed the current psychotropics carefully including drug interactions. Risk benefit ratio favors no change other than as noted in my dictated progress note. Diagnosis: Problems: (1) Bipolar disorder, unspecified (2) Anxiety disorder, unspecified (3) Impulse control disorder, unspecified OBDULIA MOLINA MD Sep 05, 2020 20:43
[2020-09-06 06:01] VITALS: BP 131/74
--- NOTE | 2020-09-06 08:18 | PDOC ---
Exam Note: Jassi Note: This note is a late entry for 09/05/2020 covers elements not covered in my initial note. Subjective: The patient was reviewed on telehealth rounds in the evening of 09/05/2020 with Zuleima HOLLINGSWORTH. Discussed with nursing staff, reviewed the chart. He slept 7-1/4 hours previous night. Overall the patient has done reasonably well. He does complain of some back and knee pain but better than before. Review of Systems: No CV, , pulmonary, eye, ENT system symptoms on review. Mental Status Exam: The patient is alert and oriented. He is pleasant, verbal, interactive, still wanting to know when he will be discharged and I addressed this with him, but social service staff is working with the family for this. Abstraction is fair. Computation impaired. Language function intact. Attention span is fair. Mood and affect is improved. No suicidal or homicidal ideation. Laboratory Data: Reviewed. Impression: Bipolar disorder unspecified. Anxiety disorder unspecified. Impulse control disorder. Plan: No change from initial note. Assessment: Vital Signs/I&O: Vital Signs Date Time Temp Pulse Resp B/P (MAP) Pulse Ox O2 Delivery O2 Flow Rate FiO2 09/06/20 06:01 97.4 73 20 131/74 (93) 96 Room Air I & O 09/05/20 09/05/20 09/06/20 15:00 23:00 07:00 Intake Total 720 ml 720 ml Balance 720 ml 720 ml Current Medications: Meds: Current Medications Medications (Trade) Dose Ordered Sig/Vicente Route PRN Reason Start Time Stop Time Status Last Admin Dose Admin Acetaminophen (Tylenol) 650 mg PRN Q6HRS PRN PO MILD PAIN / TEMP > 100.3'F 06/05/20 16:45 08/20/20 15:27 DC 08/20/20 08:58 Multi-Ingredient Ointment (Analgesic [place]) 1 martina PRN QID PRN TP MUSCLE PAIN 06/05/20 16:45 Cancel Al Hydroxide/Mg Hydroxide (Mylanta Plus Xs) 15 ml PRN AFTMEALHC PRN PO DYSPEPSIA 06/05/20 16:45 06/06/20 17:08 DC Magnesium Hydroxide (Milk Of Magnesia) 2,400 mg PRN QHS PRN PO CONSTIPATION 06/05/20 16:45 Acetaminophen (Tylenol) 1,000 mg BID PO 06/05/20 21:00 06/25/20 12:00 DC 06/23/20 09:08 Amlodipine Besylate (Norvasc) 5 mg DAILY PO 06/06/20 09:00 09/05/20 07:56 Cetirizine HCl (ZyrTEC) 10 mg PRN DAILY PRN PO ALLERGIES 06/05/20 18:15 07/29/20 12:21 Cyclobenzaprine HCl (Flexeril) 10 mg PRN QHS PRN PO MUSCLE SPASMS 06/05/20 18:15 09/05/20 20:12 Diclofenac Sodium (Voltaren) 1 martina PRN Q6HRS PRN TP MUSCLE SKELETAL PAIN 06/05/20 18:15 09/05/20 09:59 Divalproex Sodium (Depakote Er) 1,000 mg QHS PO 06/05/20 21:00 06/07/20 11:57 DC 06/06/20 20:47 Al Hydroxide/Mg Hydroxide (Mylanta Plus Xs) 15 ml PRN AFTMEALHC PRN PO DYSPEPSIA 06/05/20 18:15 Metoprolol Succinate (Toprol Xl) 25 mg DAILY PO 06/06/20 09:00 09/05/20 07:56 Trazodone HCl (Desyrel) 50 mg QHS PO 06/05/20 21:00 09/05/20 20:13 Calcium Carbonate/ Glycine (Tums) 500 mg TIDAFTMEAL PO 06/05/20 18:45 09/05/20 17:15 Magnesium Hydroxide (Milk Of Magnesia) 2,400 mg PRN QHS PRN PO CONSTIPATION 06/05/20 18:45 06/06/20 17:08 DC Multi-Ingredient Ointment (Analgesic [place]) 1 martina PRN QID PRN TP MUSCLE PAIN 06/05/20 18:45 06/06/20 17:09 DC Divalproex Sodium (Depakote Er) 1,250 mg QHS PO 06/07/20 21:00 06/15/20 19:47 DC 06/14/20 20:16 Vitamin D (Vitamin D3) 50,000 unit WEEKLY PO 06/07/20 17:15 08/30/20 08:28 Atorvastatin Calcium (Lipitor) 10 mg QHS PO 06/07/20 21:00 09/05/20 20:12 Quetiapine Fumarate (SEROquel) 25 mg QHS PO 06/09/20 21:00 09/05/20 20:13 Divalproex Sodium (Depakote Er) 250 mg QHS PO 06/15/20 21:00 06/21/20 17:39 DC 06/20/20 20:20 Divalproex Sodium (Depakote Er) 1,000 mg QHS PO 06/15/20 21:00 06/21/20 17:39 DC 06/20/20 20:21 Gabapentin (Neurontin) 300 mg BID PO 06/21/20 21:00 09/05/20 20:12 Acetaminophen/ Hydrocodone Bitart (Lortab 5/325) 1 tab PRN Q6HRS PRN PO MOD-SEV PAIN 08/17/20 17:15 09/01/20 20:38 Acetaminophen (Tylenol) 1,300 mg PRN Q8HRS PRN PO MILD PAIN / TEMP > 100.3'F 08/20/20 15:30 08/27/20 19:41 DC Acetaminophen (Tylenol) 650 mg PRN Q6HRS PRN PO MILD PAIN / TEMP > 100.3'F 08/27/20 19:45 09/04/20 19:55 I have reviewed the current psychotropics carefully including drug interactions. Risk benefit ratio favors no change other than as noted in my dictated progress note. Diagnosis: Problems: (1) Bipolar disorder, unspecified (2) Anxiety disorder, unspecified (3) Impulse control disorder, unspecified OBDULIA MOLINA MD Sep 06, 2020 08:18
[2020-09-06] MEDS: CALCIUM CARBONATE 500 MG TAB.CHEW PO SCH ×3 (09:00→17:25)
[2020-09-06] MEDS: GABAPENTIN 300 MG CAPSULE. PO SCH ×2 (10:13→20:09)
[2020-09-06] MEDS: METOPROLOL SUCC 24HR ER 25 MG TAB.ER.24H. PO SCH (10:13)
[2020-09-06] MEDS: amLODIPine BESYLATE 10 MG TABLET PO SCH (10:13)
[2020-09-06] MEDS: CHOLECALCIFEROL (VITAMIN D3) 50,000 UNIT CAPSULE PO SCH (10:15)
[2020-09-06] MEDS: DICLOFENAC SODIUM 1% TOPICAL GEL 100GM TUBE. TP PRN (11:02)
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
[2020-09-06 16:25] VITALS: BP 136/80
[2020-09-06] MEDS: traZODone 50 MG TABLET. PO SCH (20:09)
[2020-09-06] MEDS: QUEtiapine 25 MG TABLET. PO SCH (20:09)
[2020-09-06] MEDS: ATORVASTATIN CALCIUM 10 MG TABLET. PO SCH (20:09)
[2020-09-06] MEDS: CYCLOBENZAPRINE 10 MG TABLET. PO PRN (20:11)
--- NOTE | 2020-09-06 20:53 | PDOC ---
Exam Note: Jassi Note: Please also refer to the separate dictated note~for this date of service dictated separately.~Patient seen individually. Discussed the patient with Nursing staff reviewed the chart.~Reviewed interim history and current functioning. Reviewed vital signs,~Labs/ Radiology~and current medications noted below. Continue current treatment with the changes noted in the dictated addendum note Assessment: Vital Signs/I&O: Vital Signs Date Time Temp Pulse Resp B/P (MAP) Pulse Ox O2 Delivery O2 Flow Rate FiO2 09/06/20 16:25 97.9 89 16 136/80 (98) 93 09/06/20 06:01 Room Air I & O 09/05/20 09/05/20 09/06/20 14:59 22:59 06:59 Intake Total 720 ml 720 ml Balance 720 ml 720 ml Current Medications: Meds: Current Medications Medications (Trade) Dose Ordered Sig/Vicente Route PRN Reason Start Time Stop Time Status Last Admin Dose Admin Acetaminophen (Tylenol) 650 mg PRN Q6HRS PRN PO MILD PAIN / TEMP > 100.3'F 06/05/20 16:45 08/20/20 15:27 DC 08/20/20 08:58 Multi-Ingredient Ointment (Analgesic [place]) 1 martina PRN QID PRN TP MUSCLE PAIN 06/05/20 16:45 Cancel Al Hydroxide/Mg Hydroxide (Mylanta Plus Xs) 15 ml PRN AFTMEALHC PRN PO DYSPEPSIA 06/05/20 16:45 06/06/20 17:08 DC Magnesium Hydroxide (Milk Of Magnesia) 2,400 mg PRN QHS PRN PO CONSTIPATION 06/05/20 16:45 Acetaminophen (Tylenol) 1,000 mg BID PO 06/05/20 21:00 06/25/20 12:00 DC 06/23/20 09:08 Amlodipine Besylate (Norvasc) 5 mg DAILY PO 06/06/20 09:00 09/06/20 10:13 Cetirizine HCl (ZyrTEC) 10 mg PRN DAILY PRN PO ALLERGIES 06/05/20 18:15 07/29/20 12:21 Cyclobenzaprine HCl (Flexeril) 10 mg PRN QHS PRN PO MUSCLE SPASMS 06/05/20 18:15 09/06/20 20:11 Diclofenac Sodium (Voltaren) 1 martina PRN Q6HRS PRN TP MUSCLE SKELETAL PAIN 06/05/20 18:15 09/06/20 11:02 Divalproex Sodium (Depakote Er) 1,000 mg QHS PO 06/05/20 21:00 06/07/20 11:57 DC 06/06/20 20:47 Al Hydroxide/Mg Hydroxide (Mylanta Plus Xs) 15 ml PRN AFTMEALHC PRN PO DYSPEPSIA 06/05/20 18:15 Metoprolol Succinate (Toprol Xl) 25 mg DAILY PO 06/06/20 09:00 09/06/20 10:13 Trazodone HCl (Desyrel) 50 mg QHS PO 06/05/20 21:00 09/06/20 20:09 Calcium Carbonate/ Glycine (Tums) 500 mg TIDAFTMEAL PO 06/05/20 18:45 09/06/20 17:25 Magnesium Hydroxide (Milk Of Magnesia) 2,400 mg PRN QHS PRN PO CONSTIPATION 06/05/20 18:45 06/06/20 17:08 DC Multi-Ingredient Ointment (Analgesic [place]) 1 martina PRN QID PRN TP MUSCLE PAIN 06/05/20 18:45 06/06/20 17:09 DC Divalproex Sodium (Depakote Er) 1,250 mg QHS PO 06/07/20 21:00 06/15/20 19:47 DC 06/14/20 20:16 Vitamin D (Vitamin D3) 50,000 unit WEEKLY PO 06/07/20 17:15 09/06/20 10:15 Atorvastatin Calcium (Lipitor) 10 mg QHS PO 06/07/20 21:00 09/06/20 20:09 Quetiapine Fumarate (SEROquel) 25 mg QHS PO 06/09/20 21:00 09/06/20 20:09 Divalproex Sodium (Depakote Er) 250 mg QHS PO 06/15/20 21:00 06/21/20 17:39 DC 06/20/20 20:20 Divalproex Sodium (Depakote Er) 1,000 mg QHS PO 06/15/20 21:00 06/21/20 17:39 DC 06/20/20 20:21 Gabapentin (Neurontin) 300 mg BID PO 06/21/20 21:00 09/06/20 20:09 Acetaminophen/ Hydrocodone Bitart (Lortab 5/325) 1 tab PRN Q6HRS PRN PO MOD-SEV PAIN 08/17/20 17:15 09/01/20 20:38 Acetaminophen (Tylenol) 1,300 mg PRN Q8HRS PRN PO MILD PAIN / TEMP > 100.3'F 08/20/20 15:30 08/27/20 19:41 DC Acetaminophen (Tylenol) 650 mg PRN Q6HRS PRN PO MILD PAIN / TEMP > 100.3'F 08/27/20 19:45 09/04/20 19:55 I have reviewed the current psychotropics carefully including drug interactions. Risk benefit ratio favors no change other than as noted in my dictated progress note. Diagnosis: Problems: (1) Bipolar disorder, unspecified (2) Anxiety disorder, unspecified (3) Impulse control disorder, unspecified OBDULIA MOLINA MD Sep 06, 2020 20:53
[2020-09-07 05:54] VITALS: BP 152/89
--- NOTE | 2020-09-07 08:06 | PDOC ---
Exam Note: Jassi Note: This note is a late entry for 09/06/2020 covers elements not covered in my initial note. Subjective: The patient was seen face to face in the morning of 09/06/2020 for a treatment team meeting with Eula Ellsworth, Samra Hsu and Shirin (social services coordinator), Rosana Sanchez, activity therapy and Niya HOLLINGSWORTH. Discussed with nursing staff, reviewed the chart. He was also seen individually in the evening. He slept 6-3/4 hours previous night. Nursing report indicates previous evening the patient had made a vague, somewhat inappropriate, sexual suggestion to the nursing staff and he asked her to rub his back for the back pain. There is certainly nothing more than the implication. Review of Systems: No CV, , pulmonary, eye, ENT system symptoms on review. He does complain of slight back pain. Mental Status Exam: The patient reasonably oriented. He is pleasant, verbal, interactive. Abstraction is fair. Computation impaired. Language function intact. Attention span is fair. Mood and affect is improved. No suicidal or homicidal ideation. Laboratory Data: Reviewed. Impression: Bipolar disorder unspecified. Anxiety disorder unspecified. Impulse control disorder. Plan: No change from initial note. Discussed with social service staff about placement options which are being actively pursued. Assessment: Vital Signs/I&O: Vital Signs Date Time Temp Pulse Resp B/P (MAP) Pulse Ox O2 Delivery O2 Flow Rate FiO2 09/07/20 05:54 96.3 77 18 152/89 (110) 94 Room Air I & O 09/06/20 09/06/20 09/07/20 15:00 23:00 07:00 Intake Total 840 ml 720 ml Balance 840 ml 720 ml Current Medications: Meds: Current Medications Medications (Trade) Dose Ordered Sig/Vicente Route PRN Reason Start Time Stop Time Status Last Admin Dose Admin Acetaminophen (Tylenol) 650 mg PRN Q6HRS PRN PO MILD PAIN / TEMP > 100.3'F 06/05/20 16:45 08/20/20 15:27 DC 08/20/20 08:58 Multi-Ingredient Ointment (Analgesic [place]) 1 martina PRN QID PRN TP MUSCLE PAIN 06/05/20 16:45 Cancel Al Hydroxide/Mg Hydroxide (Mylanta Plus Xs) 15 ml PRN AFTMEALHC PRN PO DYSPEPSIA 10/24/20 16:45 06/06/20 17:08 DC Magnesium Hydroxide (Milk Of Magnesia) 2,400 mg PRN QHS PRN PO CONSTIPATION 06/05/20 16:45 Acetaminophen (Tylenol) 1,000 mg BID PO 06/05/20 21:00 06/25/20 12:00 DC 06/23/20 09:08 Amlodipine Besylate (Norvasc) 5 mg DAILY PO 06/06/20 09:00 09/06/20 10:13 Cetirizine HCl (ZyrTEC) 10 mg PRN DAILY PRN PO ALLERGIES 06/05/20 18:15 07/29/20 12:21 Cyclobenzaprine HCl (Flexeril) 10 mg PRN QHS PRN PO MUSCLE SPASMS 06/05/20 18:15 09/06/20 20:11 Diclofenac Sodium (Voltaren) 1 martina PRN Q6HRS PRN TP MUSCLE SKELETAL PAIN 06/05/20 18:15 09/06/20 11:02 Divalproex Sodium (Depakote Er) 1,000 mg QHS PO 06/05/20 21:00 06/07/20 11:57 DC 06/06/20 20:47 Al Hydroxide/Mg Hydroxide (Mylanta Plus Xs) 15 ml PRN AFTMEALHC PRN PO DYSPEPSIA 06/05/20 18:15 Metoprolol Succinate (Toprol Xl) 25 mg DAILY PO 06/06/20 09:00 09/06/20 10:13 Trazodone HCl (Desyrel) 50 mg QHS PO 06/05/20 21:00 09/06/20 20:09 Calcium Carbonate/ Glycine (Tums) 500 mg TIDAFTMEAL PO 06/05/20 18:45 09/06/20 17:25 Magnesium Hydroxide (Milk Of Magnesia) 2,400 mg PRN QHS PRN PO CONSTIPATION 06/05/20 18:45 06/06/20 17:08 DC Multi-Ingredient Ointment (Analgesic [place]) 1 martina PRN QID PRN TP MUSCLE PAIN 06/05/20 18:45 06/06/20 17:09 DC Divalproex Sodium (Depakote Er) 1,250 mg QHS PO 06/07/20 21:00 06/15/20 19:47 DC 06/14/20 20:16 Vitamin D (Vitamin D3) 50,000 unit WEEKLY PO 06/07/20 17:15 09/06/20 10:15 Atorvastatin Calcium (Lipitor) 10 mg QHS PO 06/07/20 21:00 09/06/20 20:09 Quetiapine Fumarate (SEROquel) 25 mg QHS PO 06/09/20 21:00 09/06/20 20:09 Divalproex Sodium (Depakote Er) 250 mg QHS PO 06/15/20 21:00 06/21/20 17:39 DC 06/20/20 20:20 Divalproex Sodium (Depakote Er) 1,000 mg QHS PO 06/15/20 21:00 06/21/20 17:39 DC 06/20/20 20:21 Gabapentin (Neurontin) 300 mg BID PO 06/21/20 21:00 09/06/20 20:09 Acetaminophen/ Hydrocodone Bitart (Lortab 5/325) 1 tab PRN Q6HRS PRN PO MOD-SEV PAIN 08/17/20 17:15 09/01/20 20:38 Acetaminophen (Tylenol) 1,300 mg PRN Q8HRS PRN PO MILD PAIN / TEMP > 100.3'F 08/20/20 15:30 08/27/20 19:41 DC Acetaminophen (Tylenol) 650 mg PRN Q6HRS PRN PO MILD PAIN / TEMP > 100.3'F 08/27/20 19:45 09/04/20 19:55 I have reviewed the current psychotropics carefully including drug interactions. Risk benefit ratio favors no change other than as noted in my dictated progress note. Diagnosis: Problems: (1) Bipolar disorder, unspecified (2) Anxiety disorder, unspecified (3) Impulse control disorder, unspecified OBDULIA MOLINA MD Sep 07, 2020 08:06
[2020-09-07] MEDS: GABAPENTIN 300 MG CAPSULE. PO SCH ×2 (09:02→19:27)
[2020-09-07] MEDS: CALCIUM CARBONATE 500 MG TAB.CHEW PO SCH ×3 (09:02→17:23)
[2020-09-07] MEDS: METOPROLOL SUCC 24HR ER 25 MG TAB.ER.24H. PO SCH (09:02)
[2020-09-07] MEDS: amLODIPine BESYLATE 10 MG TABLET PO SCH (09:03)
[2020-09-07 15:55] VITALS: BP 135/77
[2020-09-07] MEDS: QUEtiapine 25 MG TABLET. PO SCH (19:27)
[2020-09-07] MEDS: traZODone 50 MG TABLET. PO SCH (19:27)
[2020-09-07] MEDS: ATORVASTATIN CALCIUM 10 MG TABLET. PO SCH (19:27)
[2020-09-07] MEDS: CYCLOBENZAPRINE 10 MG TABLET. PO PRN (19:28)
[2020-09-07] MEDS: DICLOFENAC SODIUM 1% TOPICAL GEL 100GM TUBE. TP PRN (20:59)
--- NOTE | 2020-09-07 21:25 | PDOC ---
Exam Note: Jassi Note: Please also refer to the separate dictated note~for this date of service dictated separately.~Patient seen individually. Discussed the patient with Nursing staff reviewed the chart.~Reviewed interim history and current functioning. Reviewed vital signs,~Labs/ Radiology~and current medications noted below. Continue current treatment with the changes noted in the dictated addendum note Assessment: Vital Signs/I&O: Vital Signs Date Time Temp Pulse Resp B/P (MAP) Pulse Ox O2 Delivery O2 Flow Rate FiO2 09/07/20 15:55 98.4 86 18 135/77 (96) 95 Room Air I & O 09/06/20 09/06/20 09/07/20 15:00 23:00 07:00 Intake Total 840 ml 720 ml Balance 840 ml 720 ml Current Medications: Meds: Current Medications Medications (Trade) Dose Ordered Sig/Vicente Route PRN Reason Start Time Stop Time Status Last Admin Dose Admin Acetaminophen (Tylenol) 650 mg PRN Q6HRS PRN PO MILD PAIN / TEMP > 100.3'F 06/05/20 16:45 08/20/20 15:27 DC 08/20/20 08:58 Multi-Ingredient Ointment (Analgesic [place]) 1 martina PRN QID PRN TP MUSCLE PAIN 06/05/20 16:45 Cancel Al Hydroxide/Mg Hydroxide (Mylanta Plus Xs) 15 ml PRN AFTMEALHC PRN PO DYSPEPSIA 06/05/20 16:45 06/06/20 17:08 DC Magnesium Hydroxide (Milk Of Magnesia) 2,400 mg PRN QHS PRN PO CONSTIPATION 06/05/20 16:45 Acetaminophen (Tylenol) 1,000 mg BID PO 06/05/20 21:00 06/25/20 12:00 DC 06/23/20 09:08 Amlodipine Besylate (Norvasc) 5 mg DAILY PO 06/06/20 09:00 09/07/20 09:03 Cetirizine HCl (ZyrTEC) 10 mg PRN DAILY PRN PO ALLERGIES 06/05/20 18:15 07/29/20 12:21 Cyclobenzaprine HCl (Flexeril) 10 mg PRN QHS PRN PO MUSCLE SPASMS 06/05/20 18:15 09/07/20 19:28 Diclofenac Sodium (Voltaren) 1 martina PRN Q6HRS PRN TP MUSCLE SKELETAL PAIN 06/05/20 18:15 09/07/20 20:59 Divalproex Sodium (Depakote Er) 1,000 mg QHS PO 06/05/20 21:00 06/07/20 11:57 DC 06/06/20 20:47 Al Hydroxide/Mg Hydroxide (Mylanta Plus Xs) 15 ml PRN AFTMEALHC PRN PO DYSPEPSIA 06/05/20 18:15 Metoprolol Succinate (Toprol Xl) 25 mg DAILY PO 06/06/20 09:00 09/07/20 09:02 Trazodone HCl (Desyrel) 50 mg QHS PO 06/05/20 21:00 09/07/20 19:27 Calcium Carbonate/ Glycine (Tums) 500 mg TIDAFTMEAL PO 06/05/20 18:45 09/07/20 17:23 Magnesium Hydroxide (Milk Of Magnesia) 2,400 mg PRN QHS PRN PO CONSTIPATION 06/05/20 18:45 06/06/20 17:08 DC Multi-Ingredient Ointment (Analgesic [place]) 1 martina PRN QID PRN TP MUSCLE PAIN 06/05/20 18:45 06/06/20 17:09 DC Divalproex Sodium (Depakote Er) 1,250 mg QHS PO 06/07/20 21:00 06/15/20 19:47 DC 06/14/20 20:16 Vitamin D (Vitamin D3) 50,000 unit WEEKLY PO 06/07/20 17:15 09/06/20 10:15 Atorvastatin Calcium (Lipitor) 10 mg QHS PO 06/07/20 21:00 09/07/20 19:27 Quetiapine Fumarate (SEROquel) 25 mg QHS PO 06/09/20 21:00 09/07/20 19:27 Divalproex Sodium (Depakote Er) 250 mg QHS PO 06/15/20 21:00 06/21/20 17:39 DC 06/20/20 20:20 Divalproex Sodium (Depakote Er) 1,000 mg QHS PO 06/15/20 21:00 06/21/20 17:39 DC 06/20/20 20:21 Gabapentin (Neurontin) 300 mg BID PO 06/21/20 21:00 09/07/20 19:27 Acetaminophen/ Hydrocodone Bitart (Lortab 5/325) 1 tab PRN Q6HRS PRN PO MOD-SEV PAIN 08/17/20 17:15 09/01/20 20:38 Acetaminophen (Tylenol) 1,300 mg PRN Q8HRS PRN PO MILD PAIN / TEMP > 100.3'F 08/20/20 15:30 08/27/20 19:41 DC Acetaminophen (Tylenol) 650 mg PRN Q6HRS PRN PO MILD PAIN / TEMP > 100.3'F 08/27/20 19:45 09/04/20 19:55 I have reviewed the current psychotropics carefully including drug interactions. Risk benefit ratio favors no change other than as noted in my dictated progress note. Diagnosis: Problems: (1) Bipolar disorder, unspecified (2) Anxiety disorder, unspecified (3) Impulse control disorder, unspecified OBDULIA MOLINA MD Sep 07, 2020 21:25
[2020-09-08 05:59] VITALS: BP 125/70
[2020-09-08] MEDS: CALCIUM CARBONATE 500 MG TAB.CHEW PO SCH ×3 (09:06→17:04)
[2020-09-08] MEDS: amLODIPine BESYLATE 10 MG TABLET PO SCH (09:06)
[2020-09-08] MEDS: METOPROLOL SUCC 24HR ER 25 MG TAB.ER.24H. PO SCH (09:06)
[2020-09-08] MEDS: GABAPENTIN 300 MG CAPSULE. PO SCH ×2 (09:07→19:55)
[2020-09-08] MEDS: DICLOFENAC SODIUM 1% TOPICAL GEL 100GM TUBE. TP PRN ×2 (09:59→21:41)
[2020-09-08 17:37] VITALS: BP 152/84
[2020-09-08] MEDS: traZODone 50 MG TABLET. PO SCH (19:55)
[2020-09-08] MEDS: CYCLOBENZAPRINE 10 MG TABLET. PO PRN (19:55)
[2020-09-08] MEDS: QUEtiapine 25 MG TABLET. PO SCH (19:55)
[2020-09-08] MEDS: ATORVASTATIN CALCIUM 10 MG TABLET. PO SCH (19:55)
[2020-09-08] MEDS: ACETAMINOPHEN 325 MG TABLET PO PRN (19:55)
--- NOTE | 2020-09-08 20:46 | PDOC ---
Exam Note: Jassi Note: Please also refer to the separate dictated note~for this date of service dictated separately.~Patient seen individually. Discussed the patient with Nursing staff reviewed the chart.~Reviewed interim history and current functioning. Reviewed vital signs,~Labs/ Radiology~and current medications noted below. Continue current treatment with the changes noted in the dictated addendum note Assessment: Vital Signs/I&O: Vital Signs Date Time Temp Pulse Resp B/P (MAP) Pulse Ox O2 Delivery O2 Flow Rate FiO2 09/08/20 17:37 97.7 86 16 152/84 (106) 94 09/08/20 05:59 Room Air I & O 09/07/20 09/07/20 09/08/20 15:00 23:00 07:00 Intake Total 720 ml 840 ml Balance 720 ml 840 ml Current Medications: Meds: Current Medications Medications (Trade) Dose Ordered Sig/Vicente Route PRN Reason Start Time Stop Time Status Last Admin Dose Admin Acetaminophen (Tylenol) 650 mg PRN Q6HRS PRN PO MILD PAIN / TEMP > 100.3'F 06/05/20 16:45 08/20/20 15:27 DC 08/20/20 08:58 Multi-Ingredient Ointment (Analgesic [place]) 1 martina PRN QID PRN TP MUSCLE PAIN 06/05/20 16:45 Cancel Al Hydroxide/Mg Hydroxide (Mylanta Plus Xs) 15 ml PRN AFTMEALHC PRN PO DYSPEPSIA 06/05/20 16:45 06/06/20 17:08 DC Magnesium Hydroxide (Milk Of Magnesia) 2,400 mg PRN QHS PRN PO CONSTIPATION 06/05/20 16:45 Acetaminophen (Tylenol) 1,000 mg BID PO 06/05/20 21:00 06/25/20 12:00 DC 06/23/20 09:08 Amlodipine Besylate (Norvasc) 5 mg DAILY PO 06/06/20 09:00 09/08/20 09:06 Cetirizine HCl (ZyrTEC) 10 mg PRN DAILY PRN PO ALLERGIES 06/05/20 18:15 07/29/20 12:21 Cyclobenzaprine HCl (Flexeril) 10 mg PRN QHS PRN PO MUSCLE SPASMS 06/05/20 18:15 09/08/20 19:55 Diclofenac Sodium (Voltaren) 1 martina PRN Q6HRS PRN TP MUSCLE SKELETAL PAIN 06/05/20 18:15 09/08/20 09:59 Divalproex Sodium (Depakote Er) 1,000 mg QHS PO 06/05/20 21:00 06/07/20 11:57 DC 06/06/20 20:47 Al Hydroxide/Mg Hydroxide (Mylanta Plus Xs) 15 ml PRN AFTMEALHC PRN PO DYSPEPSIA 06/05/20 18:15 Metoprolol Succinate (Toprol Xl) 25 mg DAILY PO 06/06/20 09:00 09/08/20 09:06 Trazodone HCl (Desyrel) 50 mg QHS PO 06/05/20 21:00 09/08/20 19:55 Calcium Carbonate/ Glycine (Tums) 500 mg TIDAFTMEAL PO 06/05/20 18:45 09/08/20 17:04 Magnesium Hydroxide (Milk Of Magnesia) 2,400 mg PRN QHS PRN PO CONSTIPATION 06/05/20 18:45 06/06/20 17:08 DC Multi-Ingredient Ointment (Analgesic [place]) 1 martina PRN QID PRN TP MUSCLE PAIN 06/05/20 18:45 06/06/20 17:09 DC Divalproex Sodium (Depakote Er) 1,250 mg QHS PO 06/07/20 21:00 06/15/20 19:47 DC 06/14/20 20:16 Vitamin D (Vitamin D3) 50,000 unit WEEKLY PO 06/07/20 17:15 09/06/20 10:15 Atorvastatin Calcium (Lipitor) 10 mg QHS PO 06/07/20 21:00 09/08/20 19:55 Quetiapine Fumarate (SEROquel) 25 mg QHS PO 06/09/20 21:00 09/08/20 19:55 Divalproex Sodium (Depakote Er) 250 mg QHS PO 06/15/20 21:00 06/21/20 17:39 DC 06/20/20 20:20 Divalproex Sodium (Depakote Er) 1,000 mg QHS PO 06/15/20 21:00 06/21/20 17:39 DC 06/20/20 20:21 Gabapentin (Neurontin) 300 mg BID PO 06/21/20 21:00 09/08/20 19:55 Acetaminophen/ Hydrocodone Bitart (Lortab 5/325) 1 tab PRN Q6HRS PRN PO MOD-SEV PAIN 08/17/20 17:15 09/01/20 20:38 Acetaminophen (Tylenol) 1,300 mg PRN Q8HRS PRN PO MILD PAIN / TEMP > 100.3'F 08/20/20 15:30 08/27/20 19:41 DC Acetaminophen (Tylenol) 650 mg PRN Q6HRS PRN PO MILD PAIN / TEMP > 100.3'F 08/27/20 19:45 09/08/20 19:55 I have reviewed the current psychotropics carefully including drug interactions. Risk benefit ratio favors no change other than as noted in my dictated progress note. Diagnosis: Problems: (1) Bipolar disorder, unspecified (2) Impulse control disorder, unspecified (3) Anxiety disorder, unspecified OBDULAI MOLINA MD Sep 08, 2020 20:46
[2020-09-09 06:17] VITALS: BP 130/72
--- NOTE | 2020-09-09 08:49 | PDOC ---
Exam Note: Jassi Note: This note is a late entry for 09/07/2020 covers elements not covered in my initial note. Subjective: The patient was seen face to face in the evening of 09/07/2020 with Niya HOLLINGSWORTH. Discussed with nursing staff, reviewed the chart. He slept 6-3/4 hours previous night. He has done well during the day and at night. The patient has been cooperative. No sexually inappropriate behaviors noted. Review of Systems: No CV, , pulmonary, eye, ENT system symptoms on review. Mental Status Exam: The patient reasonably oriented. He is pleasant, verbal, interactive. He complains of some back pain, but nothing significant. Abstraction is fair. Computation impaired. Language function intact. Attention span is fair. Mood and affect is improved. No suicidal or homicidal ideation. Laboratory Data: Reviewed. Impression: Bipolar disorder unspecified. Anxiety disorder unspecified. Impulse control disorder. Plan: No change from initial note. Assessment: Vital Signs/I&O: Vital Signs Date Time Temp Pulse Resp B/P (MAP) Pulse Ox O2 Delivery O2 Flow Rate FiO2 09/09/20 06:17 97.2 77 17 130/72 (91) 95 Room Air I & O 09/08/20 09/08/20 09/09/20 15:00 23:00 07:00 Intake Total 840 ml 480 ml Balance 840 ml 480 ml Current Medications: Meds: Current Medications Medications (Trade) Dose Ordered Sig/Vicente Route PRN Reason Start Time Stop Time Status Last Admin Dose Admin Acetaminophen (Tylenol) 650 mg PRN Q6HRS PRN PO MILD PAIN / TEMP > 100.3'F 06/05/20 16:45 08/20/20 15:27 DC 08/20/20 08:58 Multi-Ingredient Ointment (Analgesic [place]) 1 martina PRN QID PRN TP MUSCLE PAIN 06/05/20 16:45 Cancel Al Hydroxide/Mg Hydroxide (Mylanta Plus Xs) 15 ml PRN AFTMEALHC PRN PO DYSPEPSIA 06/05/20 16:45 06/06/20 17:08 DC Magnesium Hydroxide (Milk Of Magnesia) 2,400 mg PRN QHS PRN PO CONSTIPATION 06/05/20 16:45 Acetaminophen (Tylenol) 1,000 mg BID PO 06/05/20 21:00 06/25/20 12:00 DC 06/23/20 09:08 Amlodipine Besylate (Norvasc) 5 mg DAILY PO 06/06/20 09:00 09/08/20 09:06 Cetirizine HCl (ZyrTEC) 10 mg PRN DAILY PRN PO ALLERGIES 06/05/20 18:15 07/29/20 12:21 Cyclobenzaprine HCl (Flexeril) 10 mg PRN QHS PRN PO MUSCLE SPASMS 06/05/20 18:15 09/08/20 19:55 Diclofenac Sodium (Voltaren) 1 martina PRN Q6HRS PRN TP MUSCLE SKELETAL PAIN 06/05/20 18:15 09/08/20 21:41 Divalproex Sodium (Depakote Er) 1,000 mg QHS PO 06/05/20 21:00 06/07/20 11:57 DC 06/06/20 20:47 Al Hydroxide/Mg Hydroxide (Mylanta Plus Xs) 15 ml PRN AFTMEALHC PRN PO DYSPEPSIA 06/05/20 18:15 Metoprolol Succinate (Toprol Xl) 25 mg DAILY PO 06/06/20 09:00 09/08/20 09:06 Trazodone HCl (Desyrel) 50 mg QHS PO 06/05/20 21:00 09/08/20 19:55 Calcium Carbonate/ Glycine (Tums) 500 mg TIDAFTMEAL PO 06/05/20 18:45 09/08/20 17:04 Magnesium Hydroxide (Milk Of Magnesia) 2,400 mg PRN QHS PRN PO CONSTIPATION 06/05/20 18:45 06/06/20 17:08 DC Multi-Ingredient Ointment (Analgesic [place]) 1 martina PRN QID PRN TP MUSCLE PAIN 06/05/20 18:45 06/06/20 17:09 DC Divalproex Sodium (Depakote Er) 1,250 mg QHS PO 06/07/20 21:00 06/15/20 19:47 DC 06/14/20 20:16 Vitamin D (Vitamin D3) 50,000 unit WEEKLY PO 06/07/20 17:15 09/06/20 10:15 Atorvastatin Calcium (Lipitor) 10 mg QHS PO 06/07/20 21:00 09/08/20 19:55 Quetiapine Fumarate (SEROquel) 25 mg QHS PO 06/09/20 21:00 09/08/20 19:55 Divalproex Sodium (Depakote Er) 250 mg QHS PO 06/15/20 21:00 06/21/20 17:39 DC 06/20/20 20:20 Divalproex Sodium (Depakote Er) 1,000 mg QHS PO 06/15/20 21:00 06/21/20 17:39 DC 06/20/20 20:21 Gabapentin (Neurontin) 300 mg BID PO 06/21/20 21:00 09/08/20 19:55 Acetaminophen/ Hydrocodone Bitart (Lortab 5/325) 1 tab PRN Q6HRS PRN PO MOD-SEV PAIN 08/17/20 17:15 09/01/20 20:38 Acetaminophen (Tylenol) 1,300 mg PRN Q8HRS PRN PO MILD PAIN / TEMP > 100.3'F 08/20/20 15:30 08/27/20 19:41 DC Acetaminophen (Tylenol) 650 mg PRN Q6HRS PRN PO MILD PAIN / TEMP > 100.3'F 08/27/20 19:45 09/08/20 19:55 I have reviewed the current psychotropics carefully including drug interactions. Risk benefit ratio favors no change other than as noted in my dictated progress note. Diagnosis: Problems: (1) Bipolar disorder, unspecified (2) Anxiety disorder, unspecified (3) Impulse control disorder, unspecified OBDULIA MOLINA MD Sep 09, 2020 08:49
[2020-09-09] MEDS: GABAPENTIN 300 MG CAPSULE. PO SCH ×2 (09:06→19:32)
[2020-09-09] MEDS: METOPROLOL SUCC 24HR ER 25 MG TAB.ER.24H. PO SCH (09:07)
[2020-09-09] MEDS: amLODIPine BESYLATE 10 MG TABLET PO SCH (09:07)
[2020-09-09] MEDS: CALCIUM CARBONATE 500 MG TAB.CHEW PO SCH ×3 (09:07→17:13)
--- NOTE | 2020-09-09 09:10 | PDOC ---
Exam Note: Jassi Note: This note is a late entry for 09/08/2020 covers elements not covered in my initial note. Subjective: The patient was seen face to face in the evening of 09/08/2020 with Niya HOLLINGSWORTH. Discussed with nursing staff, reviewed the chart. He slept 6-1/2 hours previous night. He did well previous night and during the day. Review of Systems: He does complain of some back pain. No CV, , pulmonary, eye, ENT system symptoms on review. Mental Status Exam: The patient reasonably oriented. He is pleasant, verbal, interactive. Abstraction is fair. Computation impaired. Language function intact. Attention span is fair. Mood and affect is improved. No suicidal or homicidal ideation. Laboratory Data: Reviewed. Impression: Bipolar disorder unspecified. Anxiety disorder unspecified. Impulse control disorder. Plan: No change from initial note. Assessment: Vital Signs/I&O: Vital Signs Date Time Temp Pulse Resp B/P (MAP) Pulse Ox O2 Delivery O2 Flow Rate FiO2 09/09/20 09:07 77 130/72 09/09/20 06:17 97.2 17 95 Room Air I & O 09/08/20 09/08/20 09/09/20 15:00 23:00 07:00 Intake Total 840 ml 480 ml Balance 840 ml 480 ml Current Medications: Meds: Current Medications Medications (Trade) Dose Ordered Sig/Vicente Route PRN Reason Start Time Stop Time Status Last Admin Dose Admin Acetaminophen (Tylenol) 650 mg PRN Q6HRS PRN PO MILD PAIN / TEMP > 100.3'F 06/05/20 16:45 08/20/20 15:27 DC 08/20/20 08:58 Multi-Ingredient Ointment (Analgesic [place]) 1 martina PRN QID PRN TP MUSCLE PAIN 06/05/20 16:45 Cancel Al Hydroxide/Mg Hydroxide (Mylanta Plus Xs) 15 ml PRN AFTMEALHC PRN PO DYSPEPSIA 06/05/20 16:45 06/06/20 17:08 DC Magnesium Hydroxide (Milk Of Magnesia) 2,400 mg PRN QHS PRN PO CONSTIPATION 06/05/20 16:45 Acetaminophen (Tylenol) 1,000 mg BID PO 06/05/20 21:00 06/25/20 12:00 DC 06/23/20 09:08 Amlodipine Besylate (Norvasc) 5 mg DAILY PO 06/06/20 09:00 09/09/20 09:07 Cetirizine HCl (ZyrTEC) 10 mg PRN DAILY PRN PO ALLERGIES 06/05/20 18:15 07/29/20 12:21 Cyclobenzaprine HCl (Flexeril) 10 mg PRN QHS PRN PO MUSCLE SPASMS 06/05/20 18:15 09/08/20 19:55 Diclofenac Sodium (Voltaren) 1 martina PRN Q6HRS PRN TP MUSCLE SKELETAL PAIN 06/05/20 18:15 09/08/20 21:41 Divalproex Sodium (Depakote Er) 1,000 mg QHS PO 06/05/20 21:00 06/07/20 11:57 DC 06/06/20 20:47 Al Hydroxide/Mg Hydroxide (Mylanta Plus Xs) 15 ml PRN AFTMEALHC PRN PO DYSPEPSIA 06/05/20 18:15 Metoprolol Succinate (Toprol Xl) 25 mg DAILY PO 06/06/20 09:00 09/09/20 09:07 Trazodone HCl (Desyrel) 50 mg QHS PO 06/05/20 21:00 09/08/20 19:55 Calcium Carbonate/ Glycine (Tums) 500 mg TIDAFTMEAL PO 06/05/20 18:45 09/09/20 09:07 Magnesium Hydroxide (Milk Of Magnesia) 2,400 mg PRN QHS PRN PO CONSTIPATION 06/05/20 18:45 06/06/20 17:08 DC Multi-Ingredient Ointment (Analgesic [place]) 1 martina PRN QID PRN TP MUSCLE PAIN 06/05/20 18:45 06/06/20 17:09 DC Divalproex Sodium (Depakote Er) 1,250 mg QHS PO 06/07/20 21:00 06/15/20 19:47 DC 06/14/20 20:16 Vitamin D (Vitamin D3) 50,000 unit WEEKLY PO 06/07/20 17:15 09/06/20 10:15 Atorvastatin Calcium (Lipitor) 10 mg QHS PO 06/07/20 21:00 09/08/20 19:55 Quetiapine Fumarate (SEROquel) 25 mg QHS PO 06/09/20 21:00 09/08/20 19:55 Divalproex Sodium (Depakote Er) 250 mg QHS PO 06/15/20 21:00 06/21/20 17:39 DC 06/20/20 20:20 Divalproex Sodium (Depakote Er) 1,000 mg QHS PO 06/15/20 21:00 06/21/20 17:39 DC 06/20/20 20:21 Gabapentin (Neurontin) 300 mg BID PO 06/21/20 21:00 09/09/20 09:06 Acetaminophen/ Hydrocodone Bitart (Lortab 5/325) 1 tab PRN Q6HRS PRN PO MOD-SEV PAIN 08/17/20 17:15 09/01/20 20:38 Acetaminophen (Tylenol) 1,300 mg PRN Q8HRS PRN PO MILD PAIN / TEMP > 100.3'F 08/20/20 15:30 08/27/20 19:41 DC Acetaminophen (Tylenol) 650 mg PRN Q6HRS PRN PO MILD PAIN / TEMP > 100.3'F 08/27/20 19:45 09/08/20 19:55 I have reviewed the current psychotropics carefully including drug interactions. Risk benefit ratio favors no change other than as noted in my dictated progress note. Diagnosis: Problems: (1) Bipolar disorder, unspecified (2) Anxiety disorder, unspecified (3) Impulse control disorder, unspecified OBDULIA MOLINA MD Sep 09, 2020 09:10
[2020-09-09] MEDS: MAGNESIUM HYDROXIDE 2,400 MG/30 ML ORAL.SUSP. PO PRN (09:54)
[2020-09-09] MEDS: DICLOFENAC SODIUM 1% TOPICAL GEL 100GM TUBE. TP PRN (15:10)
[2020-09-09 15:35] VITALS: BP 148/88
[2020-09-09] MEDS: ATORVASTATIN CALCIUM 10 MG TABLET. PO SCH (19:31)
[2020-09-09] MEDS: CYCLOBENZAPRINE 10 MG TABLET. PO PRN (19:31)
[2020-09-09] MEDS: traZODone 50 MG TABLET. PO SCH (19:31)
[2020-09-09] MEDS: ACETAMINOPHEN 325 MG TABLET PO PRN (19:32)
[2020-09-09] MEDS: QUEtiapine 25 MG TABLET. PO SCH (19:32)
--- NOTE | 2020-09-09 21:00 | PDOC ---
Exam Note: Jassi Note: Please also refer to the separate dictated note~for this date of service dictated separately.~Patient seen individually. Discussed the patient with Nursing staff reviewed the chart.~Reviewed interim history and current functioning. Reviewed vital signs,~Labs/ Radiology~and current medications noted below. Continue current treatment with the changes noted in the dictated addendum note Assessment: Vital Signs/I&O: Vital Signs Date Time Temp Pulse Resp B/P (MAP) Pulse Ox O2 Delivery O2 Flow Rate FiO2 09/09/20 15:35 97.5 91 18 148/88 (108) 93 09/09/20 06:17 Room Air I & O 09/08/20 09/08/20 09/09/20 15:00 23:00 07:00 Intake Total 840 ml 480 ml Balance 840 ml 480 ml Current Medications: Meds: Current Medications Medications (Trade) Dose Ordered Sig/Vicente Route PRN Reason Start Time Stop Time Status Last Admin Dose Admin Acetaminophen (Tylenol) 650 mg PRN Q6HRS PRN PO MILD PAIN / TEMP > 100.3'F 06/05/20 16:45 08/20/20 15:27 DC 08/20/20 08:58 Multi-Ingredient Ointment (Analgesic [place]) 1 martina PRN QID PRN TP MUSCLE PAIN 06/05/20 16:45 Cancel Al Hydroxide/Mg Hydroxide (Mylanta Plus Xs) 15 ml PRN AFTMEALHC PRN PO DYSPEPSIA 06/05/20 16:45 06/06/20 17:08 DC Magnesium Hydroxide (Milk Of Magnesia) 2,400 mg PRN QHS PRN PO CONSTIPATION 06/05/20 16:45 09/09/20 09:54 Acetaminophen (Tylenol) 1,000 mg BID PO 06/05/20 21:00 06/25/20 12:00 DC 06/23/20 09:08 Amlodipine Besylate (Norvasc) 5 mg DAILY PO 06/06/20 09:00 09/09/20 09:07 Cetirizine HCl (ZyrTEC) 10 mg PRN DAILY PRN PO ALLERGIES 06/05/20 18:15 07/29/20 12:21 Cyclobenzaprine HCl (Flexeril) 10 mg PRN QHS PRN PO MUSCLE SPASMS 06/05/20 18:15 09/09/20 19:31 Diclofenac Sodium (Voltaren) 1 martina PRN Q6HRS PRN TP MUSCLE SKELETAL PAIN 06/05/20 18:15 09/09/20 15:10 Divalproex Sodium (Depakote Er) 1,000 mg QHS PO 06/05/20 21:00 06/07/20 11:57 DC 06/06/20 20:47 Al Hydroxide/Mg Hydroxide (Mylanta Plus Xs) 15 ml PRN AFTMEALHC PRN PO DYSPEPSIA 06/05/20 18:15 Metoprolol Succinate (Toprol Xl) 25 mg DAILY PO 06/06/20 09:00 09/09/20 09:07 Trazodone HCl (Desyrel) 50 mg QHS PO 06/05/20 21:00 09/09/20 19:31 Calcium Carbonate/ Glycine (Tums) 500 mg TIDAFTMEAL PO 06/05/20 18:45 09/09/20 17:13 Magnesium Hydroxide (Milk Of Magnesia) 2,400 mg PRN QHS PRN PO CONSTIPATION 06/05/20 18:45 06/06/20 17:08 DC Multi-Ingredient Ointment (Analgesic [place]) 1 martina PRN QID PRN TP MUSCLE PAIN 06/05/20 18:45 06/06/20 17:09 DC Divalproex Sodium (Depakote Er) 1,250 mg QHS PO 06/07/20 21:00 06/15/20 19:47 DC 06/14/20 20:16 Vitamin D (Vitamin D3) 50,000 unit WEEKLY PO 06/07/20 17:15 09/06/20 10:15 Atorvastatin Calcium (Lipitor) 10 mg QHS PO 06/07/20 21:00 09/09/20 19:31 Quetiapine Fumarate (SEROquel) 25 mg QHS PO 06/09/20 21:00 09/09/20 19:32 Divalproex Sodium (Depakote Er) 250 mg QHS PO 06/15/20 21:00 06/21/20 17:39 DC 06/20/20 20:20 Divalproex Sodium (Depakote Er) 1,000 mg QHS PO 06/15/20 21:00 06/21/20 17:39 DC 11/8/20 20:21 Gabapentin (Neurontin) 300 mg BID PO 06/21/20 21:00 09/09/20 19:32 Acetaminophen/ Hydrocodone Bitart (Lortab 5/325) 1 tab PRN Q6HRS PRN PO MOD-SEV PAIN 08/17/20 17:15 09/01/20 20:38 Acetaminophen (Tylenol) 1,300 mg PRN Q8HRS PRN PO MILD PAIN / TEMP > 100.3'F 08/20/20 15:30 08/27/20 19:41 DC Acetaminophen (Tylenol) 650 mg PRN Q6HRS PRN PO MILD PAIN / TEMP > 100.3'F 08/27/20 19:45 09/09/20 19:32 I have reviewed the current psychotropics carefully including drug interactions. Risk benefit ratio favors no change other than as noted in my dictated progress note. Diagnosis: Problems: (1) Bipolar disorder, unspecified (2) Anxiety disorder, unspecified (3) Impulse control disorder, unspecified OBDULIA MOLINA MD Sep 09, 2020 21:00
[2020-09-10 05:59] VITALS: BP 163/72
--- NOTE | 2020-09-10 07:25 | PDOC ---
Exam Note: Jassi Note: This note is a late entry for 09/09/2020 covers elements not covered in my initial note. Subjective: The patient was seen face to face in the evening of 09/09/2020 with Niya HOLLINGSWORTH. Discussed with nursing staff, reviewed the chart. He slept 6 hours previous night. He is pleasant, cooperative. Review of Systems: Denies any back pain or knee pain. No CV, , pulmonary, eye, ENT system symptoms on review. Mental Status Exam: The patient reasonably oriented. Speech coherent. Abstraction is fair. Computation impaired. Language function intact. Attention span is fair. Mood and affect is improved. No suicidal or homicidal ideation. Laboratory Data: Reviewed. Impression: Bipolar disorder unspecified. Anxiety disorder unspecified. Impulse control disorder. Plan: No change from initial note. Assessment: Vital Signs/I&O: Vital Signs Date Time Temp Pulse Resp B/P (MAP) Pulse Ox O2 Delivery O2 Flow Rate FiO2 09/10/20 05:59 97.2 83 19 163/72 (102) 95 Room Air I & O 09/09/20 09/09/20 09/10/20 15:00 23:00 07:00 Intake Total 720 ml 360 ml Balance 720 ml 360 ml Current Medications: Meds: Current Medications Medications (Trade) Dose Ordered Sig/Vicente Route PRN Reason Start Time Stop Time Status Last Admin Dose Admin Acetaminophen (Tylenol) 650 mg PRN Q6HRS PRN PO MILD PAIN / TEMP > 100.3'F 06/05/20 16:45 08/20/20 15:27 DC 08/20/20 08:58 Multi-Ingredient Ointment (Analgesic [place]) 1 martina PRN QID PRN TP MUSCLE PAIN 06/05/20 16:45 Cancel Al Hydroxide/Mg Hydroxide (Mylanta Plus Xs) 15 ml PRN AFTMEALHC PRN PO DYSPEPSIA 06/05/20 16:45 06/06/20 17:08 DC Magnesium Hydroxide (Milk Of Magnesia) 2,400 mg PRN QHS PRN PO CONSTIPATION 06/05/20 16:45 09/09/20 09:54 Acetaminophen (Tylenol) 1,000 mg BID PO 06/05/20 21:00 06/25/20 12:00 DC 06/23/20 09:08 Amlodipine Besylate (Norvasc) 5 mg DAILY PO 06/06/20 09:00 09/09/20 09:07 Cetirizine HCl (ZyrTEC) 10 mg PRN DAILY PRN PO ALLERGIES 06/05/20 18:15 07/29/20 12:21 Cyclobenzaprine HCl (Flexeril) 10 mg PRN QHS PRN PO MUSCLE SPASMS 06/05/20 18:15 09/09/20 19:31 Diclofenac Sodium (Voltaren) 1 martina PRN Q6HRS PRN TP MUSCLE SKELETAL PAIN 06/05/20 18:15 09/09/20 15:10 Divalproex Sodium (Depakote Er) 1,000 mg QHS PO 06/05/20 21:00 06/07/20 11:57 DC 06/06/20 20:47 Al Hydroxide/Mg Hydroxide (Mylanta Plus Xs) 15 ml PRN AFTMEALHC PRN PO DYSPEPSIA 06/05/20 18:15 Metoprolol Succinate (Toprol Xl) 25 mg DAILY PO 06/06/20 09:00 09/09/20 09:07 Trazodone HCl (Desyrel) 50 mg QHS PO 06/05/20 21:00 09/09/20 19:31 Calcium Carbonate/ Glycine (Tums) 500 mg TIDAFTMEAL PO 06/05/20 18:45 09/09/20 17:13 Magnesium Hydroxide (Milk Of Magnesia) 2,400 mg PRN QHS PRN PO CONSTIPATION 06/05/20 18:45 06/06/20 17:08 DC Multi-Ingredient Ointment (Analgesic [place]) 1 martina PRN QID PRN TP MUSCLE PAIN 06/05/20 18:45 06/06/20 17:09 DC Divalproex Sodium (Depakote Er) 1,250 mg QHS PO 06/07/20 21:00 06/15/20 19:47 DC 06/14/20 20:16 Vitamin D (Vitamin D3) 50,000 unit WEEKLY PO 06/07/20 17:15 09/06/20 10:15 Atorvastatin Calcium (Lipitor) 10 mg QHS PO 06/07/20 21:00 09/09/20 19:31 Quetiapine Fumarate (SEROquel) 25 mg QHS PO 06/09/20 21:00 09/09/20 19:32 Divalproex Sodium (Depakote Er) 250 mg QHS PO 06/15/20 21:00 06/21/20 17:39 DC 06/20/20 20:20 Divalproex Sodium (Depakote Er) 1,000 mg QHS PO 06/15/20 21:00 06/21/20 17:39 DC 06/20/20 20:21 Gabapentin (Neurontin) 300 mg BID PO 06/21/20 21:00 09/09/20 19:32 Acetaminophen/ Hydrocodone Bitart (Lortab 5/325) 1 tab PRN Q6HRS PRN PO MOD-SEV PAIN 08/17/20 17:15 09/01/20 20:38 Acetaminophen (Tylenol) 1,300 mg PRN Q8HRS PRN PO MILD PAIN / TEMP > 100.3'F 08/20/20 15:30 08/27/20 19:41 DC Acetaminophen (Tylenol) 650 mg PRN Q6HRS PRN PO MILD PAIN / TEMP > 100.3'F 08/27/20 19:45 09/09/20 19:32 I have reviewed the current psychotropics carefully including drug interactions. Risk benefit ratio favors no change other than as noted in my dictated progress note. Diagnosis: Problems: (1) Bipolar disorder, unspecified (2) Anxiety disorder, unspecified (3) Impulse control disorder, unspecified OBDULIA MOLINA MD Sep 10, 2020 07:25
[2020-09-10] MEDS: GABAPENTIN 300 MG CAPSULE. PO SCH ×2 (07:48→19:47)
[2020-09-10] MEDS: METOPROLOL SUCC 24HR ER 25 MG TAB.ER.24H. PO SCH (07:48)
[2020-09-10] MEDS: CALCIUM CARBONATE 500 MG TAB.CHEW PO SCH ×3 (07:48→16:29)
[2020-09-10] MEDS: amLODIPine BESYLATE 10 MG TABLET PO SCH (07:49)
[2020-09-10 16:06] VITALS: BP 152/87
[2020-09-10] MEDS: ATORVASTATIN CALCIUM 10 MG TABLET. PO SCH (19:46)
[2020-09-10] MEDS: QUEtiapine 25 MG TABLET. PO SCH (19:46)
[2020-09-10] MEDS: ACETAMINOPHEN 325 MG TABLET PO PRN (19:47)
[2020-09-10] MEDS: CYCLOBENZAPRINE 10 MG TABLET. PO PRN (19:47)
[2020-09-10] MEDS: traZODone 50 MG TABLET. PO SCH (19:47)
--- NOTE | 2020-09-10 21:03 | PDOC ---
Exam Note: Jassi Note: Please also refer to the separate dictated note~for this date of service dictated separately.~Patient seen individually. Discussed the patient with Nursing staff reviewed the chart.~Reviewed interim history and current functioning. Reviewed vital signs,~Labs/ Radiology~and current medications noted below. Continue current treatment with the changes noted in the dictated addendum note Assessment: Vital Signs/I&O: Vital Signs Date Time Temp Pulse Resp B/P (MAP) Pulse Ox O2 Delivery O2 Flow Rate FiO2 09/10/20 16:06 98.1 90 20 152/87 (108) 97 Room Air I & O 09/09/20 09/09/20 09/10/20 15:00 23:00 07:00 Intake Total 720 ml 360 ml Balance 720 ml 360 ml Current Medications: Meds: Current Medications Medications (Trade) Dose Ordered Sig/Vicente Route PRN Reason Start Time Stop Time Status Last Admin Dose Admin Acetaminophen (Tylenol) 650 mg PRN Q6HRS PRN PO MILD PAIN / TEMP > 100.3'F 06/05/20 16:45 08/20/20 15:27 DC 08/20/20 08:58 Multi-Ingredient Ointment (Analgesic [place]) 1 martina PRN QID PRN TP MUSCLE PAIN 06/05/20 16:45 Cancel Al Hydroxide/Mg Hydroxide (Mylanta Plus Xs) 15 ml PRN AFTMEALHC PRN PO DYSPEPSIA 06/05/20 16:45 06/06/20 17:08 DC Magnesium Hydroxide (Milk Of Magnesia) 2,400 mg PRN QHS PRN PO CONSTIPATION 06/05/20 16:45 09/09/20 09:54 Acetaminophen (Tylenol) 1,000 mg BID PO 06/05/20 21:00 06/25/20 12:00 DC 06/23/20 09:08 Amlodipine Besylate (Norvasc) 5 mg DAILY PO 06/06/20 09:00 09/10/20 07:49 Cetirizine HCl (ZyrTEC) 10 mg PRN DAILY PRN PO ALLERGIES 06/05/20 18:15 07/29/20 12:21 Cyclobenzaprine HCl (Flexeril) 10 mg PRN QHS PRN PO MUSCLE SPASMS 06/05/20 18:15 09/10/20 19:47 Diclofenac Sodium (Voltaren) 1 martina PRN Q6HRS PRN TP MUSCLE SKELETAL PAIN 06/05/20 18:15 09/09/20 15:10 Divalproex Sodium (Depakote Er) 1,000 mg QHS PO 06/05/20 21:00 06/07/20 11:57 DC 06/06/20 20:47 Al Hydroxide/Mg Hydroxide (Mylanta Plus Xs) 15 ml PRN AFTMEALHC PRN PO DYSPEPSIA 06/05/20 18:15 Metoprolol Succinate (Toprol Xl) 25 mg DAILY PO 06/06/20 09:00 09/10/20 07:48 Trazodone HCl (Desyrel) 50 mg QHS PO 06/05/20 21:00 09/10/20 19:47 Calcium Carbonate/ Glycine (Tums) 500 mg TIDAFTMEAL PO 06/05/20 18:45 09/10/20 16:29 Magnesium Hydroxide (Milk Of Magnesia) 2,400 mg PRN QHS PRN PO CONSTIPATION 06/05/20 18:45 06/06/20 17:08 DC Multi-Ingredient Ointment (Analgesic [place]) 1 martina PRN QID PRN TP MUSCLE PAIN 06/05/20 18:45 06/06/20 17:09 DC Divalproex Sodium (Depakote Er) 1,250 mg QHS PO 06/07/20 21:00 06/15/20 19:47 DC 06/14/20 20:16 Vitamin D (Vitamin D3) 50,000 unit WEEKLY PO 06/07/20 17:15 09/06/20 10:15 Atorvastatin Calcium (Lipitor) 10 mg QHS PO 06/07/20 21:00 09/10/20 19:46 Quetiapine Fumarate (SEROquel) 25 mg QHS PO 06/09/20 21:00 09/10/20 19:46 Divalproex Sodium (Depakote Er) 250 mg QHS PO 06/15/20 21:00 06/21/20 17:39 DC 06/20/20 20:20 Divalproex Sodium (Depakote Er) 1,000 mg QHS PO 06/15/20 21:00 06/21/20 17:39 DC 06/20/20 20:21 Gabapentin (Neurontin) 300 mg BID PO 06/21/20 21:00 09/10/20 19:47 Acetaminophen/ Hydrocodone Bitart (Lortab 5/325) 1 tab PRN Q6HRS PRN PO MOD-SEV PAIN 08/17/20 17:15 09/01/20 20:38 Acetaminophen (Tylenol) 1,300 mg PRN Q8HRS PRN PO MILD PAIN / TEMP > 100.3'F 08/20/20 15:30 08/27/20 19:41 DC Acetaminophen (Tylenol) 650 mg PRN Q6HRS PRN PO MILD PAIN / TEMP > 100.3'F 08/27/20 19:45 09/10/20 19:47 I have reviewed the current psychotropics carefully including drug interactions. Risk benefit ratio favors no change other than as noted in my dictated progress note. Diagnosis: Problems: (1) Bipolar disorder, unspecified (2) Anxiety disorder, unspecified (3) Impulse control disorder, unspecified OBDULIA MOLINA MD Sep 10, 2020 21:03
[2020-09-11 05:59] VITALS: BP 153/81
[2020-09-11] MEDS: amLODIPine BESYLATE 10 MG TABLET PO SCH (07:41)
[2020-09-11] MEDS: CALCIUM CARBONATE 500 MG TAB.CHEW PO SCH ×3 (07:41→17:42)
[2020-09-11] MEDS: GABAPENTIN 300 MG CAPSULE. PO SCH ×2 (07:42→20:28)
[2020-09-11] MEDS: METOPROLOL SUCC 24HR ER 25 MG TAB.ER.24H. PO SCH (07:42)
[2020-09-11 14:35] LABS: BASO # 0.1 x10^3/uL (0.0-0.2); BASO % 1 % (0-3); EOS # 0.3 x10^3/uL (0.0-0.7); EOS % 4 % (0-3); HEMATOCRIT 42.4 % (39.0-53.0); HEMOGLOBIN 14.2 g/dL (13.0-17.5); LYMPH # 1.3 x10^3/uL (1.0-4.8); LYMPH % 18 % (24-48); MEAN CORPUSCULAR HEMOGLOBIN 31 pg (25-35); MEAN CORPUSCULAR HGB CONC 34 g/dL (31-37); MEAN CORPUSCULAR VOLUME 91 fL (79-100); MONO # 0.9 x10^3/uL (0.0-1.1); MONO % 13 % (0-9); NEUT # 4.7 x10^3uL (1.8-7.7); NEUT % 64 % (31-73); PLATELET COUNT 303 x10^3/uL (140-400); RED BLOOD COUNT 4.64 x10^6/uL (4.30-5.70); RED CELL DISTRIBUTION WIDTH 13.2 % (11.5-14.5); WHITE BLOOD COUNT 7.3 x10^3/uL (4.0-11.0)
[2020-09-11 14:54] LABS: ALBUMIN 3.5 g/dL (3.4-5.0); ALBUMIN/GLOBULIN RATIO 0.9 (1.0-1.7); CALCIUM 9.1 mg/dL (8.5-10.1); GFR 73.7; POTASSIUM 4.2 mmol/L (3.5-5.1); TOTAL BILIRUBIN 0.3 mg/dL (0.2-1.0); TOTAL PROTEIN 7.2 g/dL (6.4-8.2)
[2020-09-11 15:00] VITALS: BP 150/90
[2020-09-11] MEDS: traZODone 50 MG TABLET. PO SCH (20:27)
[2020-09-11] MEDS: CYCLOBENZAPRINE 10 MG TABLET. PO PRN (20:27)
[2020-09-11] MEDS: ACETAMINOPHEN 325 MG TABLET PO PRN (20:27)
[2020-09-11] MEDS: ATORVASTATIN CALCIUM 10 MG TABLET. PO SCH (20:27)
[2020-09-11] MEDS: QUEtiapine 25 MG TABLET. PO SCH (20:28)
--- NOTE | 2020-09-11 20:56 | PDOC ---
Exam Note: Jassi Note: Please also refer to the separate dictated note~for this date of service dictated separately.~Patient seen individually. Discussed the patient with Nursing staff reviewed the chart.~Reviewed interim history and current functioning. Reviewed vital signs,~Labs/ Radiology~and current medications noted below. Continue current treatment with the changes noted in the dictated addendum note Assessment: Vital Signs/I&O: Vital Signs Date Time Temp Pulse Resp B/P (MAP) Pulse Ox O2 Delivery O2 Flow Rate FiO2 09/11/20 15:00 97.3 94 20 150/90 (110) 95 Nasal Cannula I & O 09/10/20 09/10/20 09/11/20 14:59 22:59 06:59 Intake Total 960 ml 600 ml Balance 960 ml 600 ml Labs: Laboratory Tests Test 09/11/20 14:20 White Blood Count 7.3 x10^3/uL (4.0-11.0) Red Blood Count 4.64 x10^6/uL (4.30-5.70) Hemoglobin 14.2 g/dL (13.0-17.5) Hematocrit 42.4 % (39.0-53.0) Mean Corpuscular Volume 91 fL (79-100) Mean Corpuscular Hemoglobin 31 pg (25-35) Mean Corpuscular Hemoglobin Concent 34 g/dL (31-37) Red Cell Distribution Width 13.2 % (11.5-14.5) Platelet Count 303 x10^3/uL (140-400) Neutrophils (%) (Auto) 64 % (31-73) Lymphocytes (%) (Auto) 18 % (24-48) L Monocytes (%) (Auto) 13 % (0-9) H Eosinophils (%) (Auto) 4 % (0-3) H Basophils (%) (Auto) 1 % (0-3) Neutrophils # (Auto) 4.7 x10^3uL (1.8-7.7) Lymphocytes # (Auto) 1.3 x10^3/uL (1.0-4.8) Monocytes # (Auto) 0.9 x10^3/uL (0.0-1.1) Eosinophils # (Auto) 0.3 x10^3/uL (0.0-0.7) Basophils # (Auto) 0.1 x10^3/uL (0.0-0.2) Sodium Level 138 mmol/L (136-145) Potassium Level 4.2 mmol/L (3.5-5.1) Chloride Level 104 mmol/L (98-107) Carbon Dioxide Level 29 mmol/L (21-32) Anion Gap 5 (6-14) L Blood Urea Nitrogen 18 mg/dL (8-26) Creatinine 1.0 mg/dL (0.7-1.3) Estimated GFR (Cockcroft-Gault) 73.7 BUN/Creatinine Ratio 18 (6-20) Glucose Level 109 mg/dL (70-99) H Calcium Level 9.1 mg/dL (8.5-10.1) Total Bilirubin 0.3 mg/dL (0.2-1.0) Aspartate Amino Transferase (AST) 39 U/L (15-37) H Alanine Aminotransferase (ALT) 73 U/L (16-63) H Alkaline Phosphatase 201 U/L (46-116) H Total Protein 7.2 g/dL (6.4-8.2) Albumin 3.5 g/dL (3.4-5.0) Albumin/Globulin Ratio 0.9 (1.0-1.7) L Current Medications: Meds: Laboratory Tests Test 09/11/20 14:20 White Blood Count 7.3 x10^3/uL Red Blood Count 4.64 x10^6/uL Hemoglobin 14.2 g/dL Hematocrit 42.4 % Mean Corpuscular Volume 91 fL Mean Corpuscular Hemoglobin 31 pg Mean Corpuscular Hemoglobin Concent 34 g/dL Red Cell Distribution Width 13.2 % Platelet Count 303 x10^3/uL Neutrophils (%) (Auto) 64 % Lymphocytes (%) (Auto) 18 % Monocytes (%) (Auto) 13 % Eosinophils (%) (Auto) 4 % Basophils (%) (Auto) 1 % Neutrophils # (Auto) 4.7 x10^3uL Lymphocytes # (Auto) 1.3 x10^3/uL Monocytes # (Auto) 0.9 x10^3/uL Eosinophils # (Auto) 0.3 x10^3/uL Basophils # (Auto) 0.1 x10^3/uL Sodium Level 138 mmol/L Potassium Level 4.2 mmol/L Chloride Level 104 mmol/L Carbon Dioxide Level 29 mmol/L Anion Gap 5 Blood Urea Nitrogen 18 mg/dL Creatinine 1.0 mg/dL Estimated GFR (Cockcroft-Gault) 73.7 BUN/Creatinine Ratio 18 Glucose Level 109 mg/dL Calcium Level 9.1 mg/dL Total Bilirubin 0.3 mg/dL Aspartate Amino Transf (AST/SGOT) 39 U/L Alanine Aminotransferase (ALT/SGPT) 73 U/L Alkaline Phosphatase 201 U/L Total Protein 7.2 g/dL Albumin 3.5 g/dL Albumin/Globulin Ratio 0.9 Current Medications Medications (Trade) Dose Ordered Sig/[place]ente Route PRN Reason Start Time Stop Time Status Last Admin Dose Admin Acetaminophen (Tylenol) 650 mg PRN Q6HRS PRN PO MILD PAIN / TEMP > 100.3'F 06/05/20 16:45 08/20/20 15:27 DC 08/20/20 08:58 Multi-Ingredient Ointment (Analgesic [place]) 1 martina PRN QID PRN TP MUSCLE PAIN 06/05/20 16:45 Cancel Al Hydroxide/Mg Hydroxide (Mylanta Plus Xs) 15 ml PRN AFTMEALHC PRN PO DYSPEPSIA 06/05/20 16:45 06/06/20 17:08 DC Magnesium Hydroxide (Milk Of Magnesia) 2,400 mg PRN QHS PRN PO CONSTIPATION 06/05/20 16:45 09/09/20 09:54 Acetaminophen (Tylenol) 1,000 mg BID PO 06/05/20 21:00 06/25/20 12:00 DC 06/23/20 09:08 Amlodipine Besylate (Norvasc) 5 mg DAILY PO 06/06/20 09:00 09/11/20 07:41 Cetirizine HCl (ZyrTEC) 10 mg PRN DAILY PRN PO ALLERGIES 06/05/20 18:15 07/29/20 12:21 Cyclobenzaprine HCl (Flexeril) 10 mg PRN QHS PRN PO MUSCLE SPASMS 06/05/20 18:15 09/11/20 20:27 Diclofenac Sodium (Voltaren) 1 martina PRN Q6HRS PRN TP MUSCLE SKELETAL PAIN 06/05/20 18:15 09/09/20 15:10 Divalproex Sodium (Depakote Er) 1,000 mg QHS PO 06/05/20 21:00 06/07/20 11:57 DC 06/06/20 20:47 Al Hydroxide/Mg Hydroxide (Mylanta Plus Xs) 15 ml PRN AFTMEALHC PRN PO DYSPEPSIA 06/05/20 18:15 Metoprolol Succinate (Toprol Xl) 25 mg DAILY PO 06/06/20 09:00 09/11/20 07:42 Trazodone HCl (Desyrel) 50 mg QHS PO 06/05/20 21:00 09/11/20 20:27 Calcium Carbonate/ Glycine (Tums) 500 mg TIDAFTMEAL PO 06/05/20 18:45 09/11/20 17:42 Magnesium Hydroxide (Milk Of Magnesia) 2,400 mg PRN QHS PRN PO CONSTIPATION 06/05/20 18:45 06/06/20 17:08 DC Multi-Ingredient Ointment (Analgesic [place]) 1 martina PRN QID PRN TP MUSCLE PAIN 06/05/20 18:45 06/06/20 17:09 DC Divalproex Sodium (Depakote Er) 1,250 mg QHS PO 06/07/20 21:00 06/15/20 19:47 DC 06/14/20 20:16 Vitamin D (Vitamin D3) 50,000 unit WEEKLY PO 06/07/20 17:15 09/06/20 10:15 Atorvastatin Calcium (Lipitor) 10 mg QHS PO 06/07/20 21:00 09/11/20 20:27 Quetiapine Fumarate (SEROquel) 25 mg QHS PO 06/09/20 21:00 09/11/20 20:28 Divalproex Sodium (Depakote Er) 250 mg QHS PO 06/15/20 21:00 06/21/20 17:39 DC 06/20/20 20:20 Divalproex Sodium (Depakote Er) 1,000 mg QHS PO 06/15/20 21:00 06/21/20 17:39 DC 06/20/20 20:21 Gabapentin (Neurontin) 300 mg BID PO 06/21/20 21:00 09/11/20 20:28 Acetaminophen/ Hydrocodone Bitart (Lortab 5/325) 1 tab PRN Q6HRS PRN PO MOD-SEV PAIN 08/17/20 17:15 09/01/20 20:38 Acetaminophen (Tylenol) 1,300 mg PRN Q8HRS PRN PO MILD PAIN / TEMP > 100.3'F 08/20/20 15:30 08/27/20 19:41 DC Acetaminophen (Tylenol) 650 mg PRN Q6HRS PRN PO MILD PAIN / TEMP > 100.3'F 08/27/20 19:45 09/11/20 20:27 I have reviewed the current psychotropics carefully including drug interactions. Risk benefit ratio favors no change other than as noted in my dictated progress note. Diagnosis: Problems: (1) Bipolar disorder, unspecified (2) Impulse control disorder, unspecified (3) Anxiety disorder, unspecified OBDULIA MOLINA MD Sep 11, 2020 20:56
[2020-09-12 06:21] VITALS: BP 148/91
[2020-09-12] MEDS: METOPROLOL SUCC 24HR ER 25 MG TAB.ER.24H. PO SCH (07:38)
[2020-09-12] MEDS: CALCIUM CARBONATE 500 MG TAB.CHEW PO SCH ×3 (07:38→17:27)
[2020-09-12] MEDS: GABAPENTIN 300 MG CAPSULE. PO SCH ×2 (07:38→20:49)
[2020-09-12] MEDS: amLODIPine BESYLATE 10 MG TABLET PO SCH (07:38)
[2020-09-12] MEDS: DICLOFENAC SODIUM 1% TOPICAL GEL 100GM TUBE. TP PRN ×2 (13:13→20:52)
[2020-09-12 16:30] VITALS: BP 138/88
--- NOTE | 2020-09-12 20:46 | PDOC ---
Exam Note: Jassi Note: This note is a late entry for 09/10/2020 covers elements not covered in my initial note. Subjective: The patient was seen face to face in the evening of 09/10/2020 with Zuleima HOLLINGSWORTH. Discussed with nursing staff, reviewed the chart. He slept 7-1/4 hours previous night. Previous evening per nursing report, the patient felt there were two people that were trying to kill him. He was paranoid, talking about wanting to go home. Review of Systems: No CV, , pulmonary, eye, ENT system symptoms on review. Mental Status Exam: The patient is oriented to himself. Insight, judgment, recent memory is impaired. Language function intact. No suicidal or homicidal ideation. Laboratory Data: Reviewed. Impression: Bipolar disorder unspecified. Anxiety disorder unspecified. Impulse control disorder. Plan: No change from initial note. Assessment: Vital Signs/I&O: Vital Signs Date Time Temp Pulse Resp B/P (MAP) Pulse Ox O2 Delivery O2 Flow Rate FiO2 09/12/20 16:30 98.0 90 16 138/88 (105) 94 09/12/20 06:21 Room Air I & O 09/11/20 09/11/20 09/12/20 15:00 23:00 07:00 Intake Total 720 ml 720 ml Balance 720 ml 720 ml Current Medications: Meds: Current Medications Medications (Trade) Dose Ordered Sig/Vicente Route PRN Reason Start Time Stop Time Status Last Admin Dose Admin Acetaminophen (Tylenol) 650 mg PRN Q6HRS PRN PO MILD PAIN / TEMP > 100.3'F 06/05/20 16:45 08/20/20 15:27 DC 08/20/20 08:58 Multi-Ingredient Ointment (Analgesic [place]) 1 martina PRN QID PRN TP MUSCLE PAIN 06/05/20 16:45 Cancel Al Hydroxide/Mg Hydroxide (Mylanta Plus Xs) 15 ml PRN AFTMEALHC PRN PO DYSPEPSIA 06/05/20 16:45 06/06/20 17:08 DC Magnesium Hydroxide (Milk Of Magnesia) 2,400 mg PRN QHS PRN PO CONSTIPATION 06/05/20 16:45 09/09/20 09:54 Acetaminophen (Tylenol) 1,000 mg BID PO 06/05/20 21:00 06/25/20 12:00 DC 11/11/20 09:08 Amlodipine Besylate (Norvasc) 5 mg DAILY PO 06/06/20 09:00 09/12/20 07:38 Cetirizine HCl (ZyrTEC) 10 mg PRN DAILY PRN PO ALLERGIES 06/05/20 18:15 07/29/20 12:21 Cyclobenzaprine HCl (Flexeril) 10 mg PRN QHS PRN PO MUSCLE SPASMS 06/05/20 18:15 09/11/20 20:27 Diclofenac Sodium (Voltaren) 1 martina PRN Q6HRS PRN TP MUSCLE SKELETAL PAIN 06/05/20 18:15 09/12/20 13:13 Divalproex Sodium (Depakote Er) 1,000 mg QHS PO 06/05/20 21:00 06/07/20 11:57 DC 06/06/20 20:47 Al Hydroxide/Mg Hydroxide (Mylanta Plus Xs) 15 ml PRN AFTMEALHC PRN PO DYSPEPSIA 06/05/20 18:15 Metoprolol Succinate (Toprol Xl) 25 mg DAILY PO 06/06/20 09:00 09/12/20 07:38 Trazodone HCl (Desyrel) 50 mg QHS PO 06/05/20 21:00 09/11/20 20:27 Calcium Carbonate/ Glycine (Tums) 500 mg TIDAFTMEAL PO 06/05/20 18:45 09/12/20 17:27 Magnesium Hydroxide (Milk Of Magnesia) 2,400 mg PRN QHS PRN PO CONSTIPATION 06/05/20 18:45 06/06/20 17:08 DC Multi-Ingredient Ointment (Analgesic [place]) 1 martina PRN QID PRN TP MUSCLE PAIN 06/05/20 18:45 06/06/20 17:09 DC Divalproex Sodium (Depakote Er) 1,250 mg QHS PO 06/07/20 21:00 06/15/20 19:47 DC 06/14/20 20:16 Vitamin D (Vitamin D3) 50,000 unit WEEKLY PO 06/07/20 17:15 09/06/20 10:15 Atorvastatin Calcium (Lipitor) 10 mg QHS PO 06/07/20 21:00 09/11/20 20:27 Quetiapine Fumarate (SEROquel) 25 mg QHS PO 06/09/20 21:00 09/11/20 20:28 Divalproex Sodium (Depakote Er) 250 mg QHS PO 06/15/20 21:00 06/21/20 17:39 DC 06/20/20 20:20 Divalproex Sodium (Depakote Er) 1,000 mg QHS PO 06/15/20 21:00 06/21/20 17:39 DC 06/20/20 20:21 Gabapentin (Neurontin) 300 mg BID PO 06/21/20 21:00 09/12/20 07:38 Acetaminophen/ Hydrocodone Bitart (Lortab 5/325) 1 tab PRN Q6HRS PRN PO MOD-SEV PAIN 08/17/20 17:15 09/01/20 20:38 Acetaminophen (Tylenol) 1,300 mg PRN Q8HRS PRN PO MILD PAIN / TEMP > 100.3'F 08/20/20 15:30 08/27/20 19:41 DC Acetaminophen (Tylenol) 650 mg PRN Q6HRS PRN PO MILD PAIN / TEMP > 100.3'F 08/27/20 19:45 09/11/20 20:27 I have reviewed the current psychotropics carefully including drug interactions. Risk benefit ratio favors no change other than as noted in my dictated progress note. Diagnosis: Problems: (1) Bipolar disorder, unspecified (2) Anxiety disorder, unspecified (3) Impulse control disorder, unspecified OBDULIA MOLINA MD Sep 12, 2020 20:46
[2020-09-12] MEDS: QUEtiapine 25 MG TABLET. PO SCH (20:49)
[2020-09-12] MEDS: traZODone 50 MG TABLET. PO SCH (20:49)
[2020-09-12] MEDS: ATORVASTATIN CALCIUM 10 MG TABLET. PO SCH (20:49)
[2020-09-12] MEDS: CYCLOBENZAPRINE 10 MG TABLET. PO PRN (20:49)
[2020-09-12] MEDS: ACETAMINOPHEN 325 MG TABLET PO PRN (20:50)
--- NOTE | 2020-09-12 21:21 | PDOC ---
Exam Note: Jassi Note: This note is a late entry for 09/11/2020 covers elements not covered in my initial note. Subjective: The patient was seen face to face in the evening of 09/11/2020 with Zuleima HOLLINGSWORTH. Discussed with nursing staff, reviewed the chart. He slept 7-1/4 hours previous night. The patient once again last evening was somewhat paranoid, believed people were trying to kill him. As I met with him in his room this evening, he was fixated on wanting to go home. Review of Systems: Denies any back pain or knee pain. No CV, , pulmonary, eye, ENT system symptoms on review. Mental Status Exam: The patient reasonably oriented. I once again talked to him about his paranoia in the evening. He denied this. Insight, judgment, recent memory is impaired. Language function intact. Other time he is quite well oriented. No suicidal or homicidal ideation. Laboratory Data: Reviewed. Impression: Bipolar disorder unspecified. Anxiety disorder unspecified. Impulse control disorder. Plan: No change from initial note. Assessment: Vital Signs/I&O: Vital Signs Date Time Temp Pulse Resp B/P (MAP) Pulse Ox O2 Delivery O2 Flow Rate FiO2 09/12/20 16:30 98.0 90 16 138/88 (105) 94 09/12/20 06:21 Room Air I & O 09/11/20 09/11/20 09/12/20 15:00 23:00 07:00 Intake Total 720 ml 720 ml Balance 720 ml 720 ml Current Medications: Meds: Current Medications Medications (Trade) Dose Ordered Sig/Vicente Route PRN Reason Start Time Stop Time Status Last Admin Dose Admin Acetaminophen (Tylenol) 650 mg PRN Q6HRS PRN PO MILD PAIN / TEMP > 100.3'F 06/05/20 16:45 08/20/20 15:27 DC 08/20/20 08:58 Multi-Ingredient Ointment (Analgesic [place]) 1 martina PRN QID PRN TP MUSCLE PAIN 06/05/20 16:45 Cancel Al Hydroxide/Mg Hydroxide (Mylanta Plus Xs) 15 ml PRN AFTMEALHC PRN PO DYSPEPSIA 06/05/20 16:45 06/06/20 17:08 DC Magnesium Hydroxide (Milk Of Magnesia) 2,400 mg PRN QHS PRN PO CONSTIPATION 06/05/20 16:45 09/09/20 09:54 Acetaminophen (Tylenol) 1,000 mg BID PO 06/05/20 21:00 06/25/20 12:00 DC 06/23/20 09:08 Amlodipine Besylate (Norvasc) 5 mg DAILY PO 06/06/20 09:00 09/12/20 07:38 Cetirizine HCl (ZyrTEC) 10 mg PRN DAILY PRN PO ALLERGIES 06/05/20 18:15 07/29/20 12:21 Cyclobenzaprine HCl (Flexeril) 10 mg PRN QHS PRN PO MUSCLE SPASMS 06/05/20 18:15 09/12/20 20:49 Diclofenac Sodium (Voltaren) 1 martina PRN Q6HRS PRN TP MUSCLE SKELETAL PAIN 06/05/20 18:15 09/12/20 20:52 Divalproex Sodium (Depakote Er) 1,000 mg QHS PO 06/05/20 21:00 06/07/20 11:57 DC 06/06/20 20:47 Al Hydroxide/Mg Hydroxide (Mylanta Plus Xs) 15 ml PRN AFTMEALHC PRN PO DYSPEPSIA 06/05/20 18:15 Metoprolol Succinate (Toprol Xl) 25 mg DAILY PO 06/06/20 09:00 09/12/20 07:38 Trazodone HCl (Desyrel) 50 mg QHS PO 06/05/20 21:00 09/12/20 20:49 Calcium Carbonate/ Glycine (Tums) 500 mg TIDAFTMEAL PO 06/05/20 18:45 09/12/20 17:27 Magnesium Hydroxide (Milk Of Magnesia) 2,400 mg PRN QHS PRN PO CONSTIPATION 06/05/20 18:45 06/06/20 17:08 DC Multi-Ingredient Ointment (Analgesic [place]) 1 martina PRN QID PRN TP MUSCLE PAIN 06/05/20 18:45 06/06/20 17:09 DC Divalproex Sodium (Depakote Er) 1,250 mg QHS PO 06/07/20 21:00 06/15/20 19:47 DC 06/14/20 20:16 Vitamin D (Vitamin D3) 50,000 unit WEEKLY PO 06/07/20 17:15 09/06/20 10:15 Atorvastatin Calcium (Lipitor) 10 mg QHS PO 06/07/20 21:00 09/12/20 20:49 Quetiapine Fumarate (SEROquel) 25 mg QHS PO 06/09/20 21:00 09/12/20 20:49 Divalproex Sodium (Depakote Er) 250 mg QHS PO 06/15/20 21:00 06/21/20 17:39 DC 06/20/20 20:20 Divalproex Sodium (Depakote Er) 1,000 mg QHS PO 06/15/20 21:00 06/21/20 17:39 DC 06/20/20 20:21 Gabapentin (Neurontin) 300 mg BID PO 06/21/20 21:00 09/12/20 20:49 Acetaminophen/ Hydrocodone Bitart (Lortab 5/325) 1 tab PRN Q6HRS PRN PO MOD-SEV PAIN 08/17/20 17:15 09/01/20 20:38 Acetaminophen (Tylenol) 1,300 mg PRN Q8HRS PRN PO MILD PAIN / TEMP > 100.3'F 08/20/20 15:30 08/27/20 19:41 DC Acetaminophen (Tylenol) 650 mg PRN Q6HRS PRN PO MILD PAIN / TEMP > 100.3'F 08/27/20 19:45 09/12/20 20:50 I have reviewed the current psychotropics carefully including drug interactions. Risk benefit ratio favors no change other than as noted in my dictated progress note. Diagnosis: Problems: (1) Bipolar disorder, unspecified (2) Anxiety disorder, unspecified (3) Impulse control disorder, unspecified OBDULIA MOLINA MD Sep 12, 2020 21:21
--- NOTE | 2020-09-12 21:22 | PDOC ---
Exam Note: Jassi Note: Please also refer to the separate dictated note~for this date of service dictated separately.~Patient seen individually. Discussed the patient with Nursing staff reviewed the chart.~Reviewed interim history and current functioning. Reviewed vital signs,~Labs/ Radiology~and current medications noted below. Continue current treatment with the changes noted in the dictated addendum note Assessment: Vital Signs/I&O: Vital Signs Date Time Temp Pulse Resp B/P (MAP) Pulse Ox O2 Delivery O2 Flow Rate FiO2 09/12/20 16:30 98.0 90 16 138/88 (105) 94 09/12/20 06:21 Room Air I & O 09/11/20 09/11/20 09/12/20 15:00 23:00 07:00 Intake Total 720 ml 720 ml Balance 720 ml 720 ml Current Medications: Meds: Current Medications Medications (Trade) Dose Ordered Sig/Vicente Route PRN Reason Start Time Stop Time Status Last Admin Dose Admin Acetaminophen (Tylenol) 650 mg PRN Q6HRS PRN PO MILD PAIN / TEMP > 100.3'F 06/05/20 16:45 08/20/20 15:27 DC 08/20/20 08:58 Multi-Ingredient Ointment (Analgesic [place]) 1 martina PRN QID PRN TP MUSCLE PAIN 06/05/20 16:45 Cancel Al Hydroxide/Mg Hydroxide (Mylanta Plus Xs) 15 ml PRN AFTMEALHC PRN PO DYSPEPSIA 06/05/20 16:45 06/06/20 17:08 DC Magnesium Hydroxide (Milk Of Magnesia) 2,400 mg PRN QHS PRN PO CONSTIPATION 06/05/20 16:45 09/09/20 09:54 Acetaminophen (Tylenol) 1,000 mg BID PO 06/05/20 21:00 06/25/20 12:00 DC 06/23/20 09:08 Amlodipine Besylate (Norvasc) 5 mg DAILY PO 06/06/20 09:00 09/12/20 07:38 Cetirizine HCl (ZyrTEC) 10 mg PRN DAILY PRN PO ALLERGIES 06/05/20 18:15 07/29/20 12:21 Cyclobenzaprine HCl (Flexeril) 10 mg PRN QHS PRN PO MUSCLE SPASMS 06/05/20 18:15 09/12/20 20:49 Diclofenac Sodium (Voltaren) 1 martina PRN Q6HRS PRN TP MUSCLE SKELETAL PAIN 06/05/20 18:15 09/12/20 20:52 Divalproex Sodium (Depakote Er) 1,000 mg QHS PO 06/05/20 21:00 06/07/20 11:57 DC 06/06/20 20:47 Al Hydroxide/Mg Hydroxide (Mylanta Plus Xs) 15 ml PRN AFTMEALHC PRN PO DYSPEPSIA 06/05/20 18:15 Metoprolol Succinate (Toprol Xl) 25 mg DAILY PO 06/06/20 09:00 09/12/20 07:38 Trazodone HCl (Desyrel) 50 mg QHS PO 06/05/20 21:00 09/12/20 20:49 Calcium Carbonate/ Glycine (Tums) 500 mg TIDAFTMEAL PO 06/05/20 18:45 09/12/20 17:27 Magnesium Hydroxide (Milk Of Magnesia) 2,400 mg PRN QHS PRN PO CONSTIPATION 06/05/20 18:45 06/06/20 17:08 DC Multi-Ingredient Ointment (Analgesic [place]) 1 martina PRN QID PRN TP MUSCLE PAIN 06/05/20 18:45 06/06/20 17:09 DC Divalproex Sodium (Depakote Er) 1,250 mg QHS PO 06/07/20 21:00 06/15/20 19:47 DC 06/14/20 20:16 Vitamin D (Vitamin D3) 50,000 unit WEEKLY PO 06/07/20 17:15 09/06/20 10:15 Atorvastatin Calcium (Lipitor) 10 mg QHS PO 06/07/20 21:00 09/12/20 20:49 Quetiapine Fumarate (SEROquel) 25 mg QHS PO 06/09/20 21:00 09/12/20 20:49 Divalproex Sodium (Depakote Er) 250 mg QHS PO 06/15/20 21:00 06/21/20 17:39 DC 06/20/20 20:20 Divalproex Sodium (Depakote Er) 1,000 mg QHS PO 06/15/20 21:00 06/21/20 17:39 DC 06/20/20 20:21 Gabapentin (Neurontin) 300 mg BID PO 06/21/20 21:00 09/12/20 20:49 Acetaminophen/ Hydrocodone Bitart (Lortab 5/325) 1 tab PRN Q6HRS PRN PO MOD-SEV PAIN 08/17/20 17:15 09/01/20 20:38 Acetaminophen (Tylenol) 1,300 mg PRN Q8HRS PRN PO MILD PAIN / TEMP > 100.3'F 08/20/20 15:30 08/27/20 19:41 DC Acetaminophen (Tylenol) 650 mg PRN Q6HRS PRN PO MILD PAIN / TEMP > 100.3'F 08/27/20 19:45 09/12/20 20:50 I have reviewed the current psychotropics carefully including drug interactions. Risk benefit ratio favors no change other than as noted in my dictated progress note. Diagnosis: Problems: (1) Bipolar disorder, unspecified (2) Anxiety disorder, unspecified (3) Impulse control disorder, unspecified OBDULIA MOLINA MD Sep 12, 2020 21:22
[2020-09-13 06:05] VITALS: BP 136/75
--- NOTE | 2020-09-13 08:09 | PDOC ---
Exam Note: Jassi Note: This note is a late entry for 09/12/2020 covers elements not covered in my initial note. Subjective: The patient was seen face to face in the evening of 09/12/2020 with Zuleima HOLLINGSWORTH. Discussed with nursing staff, reviewed the chart. He slept 2-3/4 hours previous night. The patient is doing reasonably well. He has not been noted to be delusional. Review of Systems: He does complain of some back pain but otherwise, no CV, , pulmonary, eye, ENT system symptoms on review. Mental Status Exam: The patient reasonably oriented. I met with him in his room. Speech is coherent. Abstraction is fair. Computation is impaired. Language function is intact. Mood and affect is improved. He was very verbal, open, and forthcoming. We discussed discharge plans for this coming week. Laboratory Data: Reviewed. Impression: Bipolar disorder unspecified. Anxiety disorder unspecified. Impulse control disorder. Plan: No change from initial note. Assessment: Vital Signs/I&O: Vital Signs Date Time Temp Pulse Resp B/P (MAP) Pulse Ox O2 Delivery O2 Flow Rate FiO2 09/13/20 06:05 97.9 72 14 136/75 (95) 96 Room Air I & O 09/12/20 09/12/20 09/13/20 15:00 23:00 07:00 Intake Total 720 ml 480 ml Balance 720 ml 480 ml Current Medications: Meds: Current Medications Medications (Trade) Dose Ordered Sig/Vicente Route PRN Reason Start Time Stop Time Status Last Admin Dose Admin Acetaminophen (Tylenol) 650 mg PRN Q6HRS PRN PO MILD PAIN / TEMP > 100.3'F 06/05/20 16:45 08/20/20 15:27 DC 08/20/20 08:58 Multi-Ingredient Ointment (Analgesic [place]) 1 martina PRN QID PRN TP MUSCLE PAIN 06/05/20 16:45 Cancel Al Hydroxide/Mg Hydroxide (Mylanta Plus Xs) 15 ml PRN AFTMEALHC PRN PO DYSPEPSIA 06/05/20 16:45 06/06/20 17:08 DC Magnesium Hydroxide (Milk Of Magnesia) 2,400 mg PRN QHS PRN PO CONSTIPATION 06/05/20 16:45 09/09/20 09:54 Acetaminophen (Tylenol) 1,000 mg BID PO 06/05/20 21:00 06/25/20 12:00 DC 06/23/20 09:08 Amlodipine Besylate (Norvasc) 5 mg DAILY PO 06/06/20 09:00 09/12/20 07:38 Cetirizine HCl (ZyrTEC) 10 mg PRN DAILY PRN PO ALLERGIES 06/05/20 18:15 07/29/20 12:21 Cyclobenzaprine HCl (Flexeril) 10 mg PRN QHS PRN PO MUSCLE SPASMS 06/05/20 18:15 09/12/20 20:49 Diclofenac Sodium (Voltaren) 1 martina PRN Q6HRS PRN TP MUSCLE SKELETAL PAIN 06/05/20 18:15 09/12/20 20:52 Divalproex Sodium (Depakote Er) 1,000 mg QHS PO 06/05/20 21:00 06/07/20 11:57 DC 06/06/20 20:47 Al Hydroxide/Mg Hydroxide (Mylanta Plus Xs) 15 ml PRN AFTMEALHC PRN PO DYSPEPSIA 06/05/20 18:15 Metoprolol Succinate (Toprol Xl) 25 mg DAILY PO 06/06/20 09:00 09/12/20 07:38 Trazodone HCl (Desyrel) 50 mg QHS PO 06/05/20 21:00 09/12/20 20:49 Calcium Carbonate/ Glycine (Tums) 500 mg TIDAFTMEAL PO 06/05/20 18:45 09/12/20 17:27 Magnesium Hydroxide (Milk Of Magnesia) 2,400 mg PRN QHS PRN PO CONSTIPATION 06/05/20 18:45 06/06/20 17:08 DC Multi-Ingredient Ointment (Analgesic [place]) 1 martina PRN QID PRN TP MUSCLE PAIN 06/05/20 18:45 06/06/20 17:09 DC Divalproex Sodium (Depakote Er) 1,250 mg QHS PO 06/07/20 21:00 06/15/20 19:47 DC 06/14/20 20:16 Vitamin D (Vitamin D3) 50,000 unit WEEKLY PO 06/07/20 17:15 09/06/20 10:15 Atorvastatin Calcium (Lipitor) 10 mg QHS PO 06/07/20 21:00 09/12/20 20:49 Quetiapine Fumarate (SEROquel) 25 mg QHS PO 06/09/20 21:00 09/12/20 20:49 Divalproex Sodium (Depakote Er) 250 mg QHS PO 06/15/20 21:00 06/21/20 17:39 DC 06/20/20 20:20 Divalproex Sodium (Depakote Er) 1,000 mg QHS PO 06/15/20 21:00 06/21/20 17:39 DC 06/20/20 20:21 Gabapentin (Neurontin) 300 mg BID PO 06/21/20 21:00 09/12/20 20:49 Acetaminophen/ Hydrocodone Bitart (Lortab 5/325) 1 tab PRN Q6HRS PRN PO MOD-SEV PAIN 08/17/20 17:15 09/01/20 20:38 Acetaminophen (Tylenol) 1,300 mg PRN Q8HRS PRN PO MILD PAIN / TEMP > 100.3'F 08/20/20 15:30 08/27/20 19:41 DC Acetaminophen (Tylenol) 650 mg PRN Q6HRS PRN PO MILD PAIN / TEMP > 100.3'F 08/27/20 19:45 09/12/20 20:50 I have reviewed the current psychotropics carefully including drug interactions. Risk benefit ratio favors no change other than as noted in my dictated progress note. Diagnosis: Problems: (1) Bipolar disorder, unspecified (2) Impulse control disorder, unspecified (3) Anxiety disorder, unspecified OBDULIA MOLINA MD Sep 13, 2020 08:09
[2020-09-13] MEDS: CALCIUM CARBONATE 500 MG TAB.CHEW PO SCH ×3 (09:47→17:10)
[2020-09-13] MEDS: GABAPENTIN 300 MG CAPSULE. PO SCH ×2 (09:47→20:12)
[2020-09-13] MEDS: amLODIPine BESYLATE 10 MG TABLET PO SCH (09:48)
[2020-09-13] MEDS: METOPROLOL SUCC 24HR ER 25 MG TAB.ER.24H. PO SCH (09:48)
[2020-09-13] MEDS: CHOLECALCIFEROL (VITAMIN D3) 50,000 UNIT CAPSULE PO SCH (09:49)
[2020-09-13] MEDS: DICLOFENAC SODIUM 1% TOPICAL GEL 100GM TUBE. TP PRN ×2 (09:54→20:14)
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
[2020-09-13 16:14] VITALS: BP 168/89
[2020-09-13] MEDS: QUEtiapine 25 MG TABLET. PO SCH (20:12)
[2020-09-13] MEDS: traZODone 50 MG TABLET. PO SCH (20:13)
[2020-09-13] MEDS: ATORVASTATIN CALCIUM 10 MG TABLET. PO SCH (20:13)
[2020-09-13] MEDS: CYCLOBENZAPRINE 10 MG TABLET. PO PRN (20:13)
[2020-09-13] MEDS: ACETAMINOPHEN 325 MG TABLET PO PRN (20:14)
--- NOTE | 2020-09-13 20:56 | PDOC ---
Exam Note: Jassi Note: Please also refer to the separate dictated note~for this date of service dictated separately.~Patient seen individually. Discussed the patient with Nursing staff reviewed the chart.~Reviewed interim history and current functioning. Reviewed vital signs,~Labs/ Radiology~and current medications noted below. Continue current treatment with the changes noted in the dictated addendum note Assessment: Vital Signs/I&O: Vital Signs Date Time Temp Pulse Resp B/P (MAP) Pulse Ox O2 Delivery O2 Flow Rate FiO2 09/13/20 16:14 98.1 82 16 168/89 (115) 96 09/13/20 06:05 Room Air I & O 09/12/20 09/12/20 09/13/20 15:00 23:00 07:00 Intake Total 720 ml 480 ml Balance 720 ml 480 ml Current Medications: Meds: Current Medications Medications (Trade) Dose Ordered Sig/Vicente Route PRN Reason Start Time Stop Time Status Last Admin Dose Admin Acetaminophen (Tylenol) 650 mg PRN Q6HRS PRN PO MILD PAIN / TEMP > 100.3'F 06/05/20 16:45 08/20/20 15:27 DC 08/20/20 08:58 Multi-Ingredient Ointment (Analgesic [place]) 1 martina PRN QID PRN TP MUSCLE PAIN 06/05/20 16:45 Cancel Al Hydroxide/Mg Hydroxide (Mylanta Plus Xs) 15 ml PRN AFTMEALHC PRN PO DYSPEPSIA 06/05/20 16:45 06/06/20 17:08 DC Magnesium Hydroxide (Milk Of Magnesia) 2,400 mg PRN QHS PRN PO CONSTIPATION 06/05/20 16:45 09/09/20 09:54 Acetaminophen (Tylenol) 1,000 mg BID PO 06/05/20 21:00 06/25/20 12:00 DC 06/23/20 09:08 Amlodipine Besylate (Norvasc) 5 mg DAILY PO 06/06/20 09:00 09/13/20 09:48 Cetirizine HCl (ZyrTEC) 10 mg PRN DAILY PRN PO ALLERGIES 06/05/20 18:15 07/29/20 12:21 Cyclobenzaprine HCl (Flexeril) 10 mg PRN QHS PRN PO MUSCLE SPASMS 06/05/20 18:15 09/13/20 20:13 Diclofenac Sodium (Voltaren) 1 martina PRN Q6HRS PRN TP MUSCLE SKELETAL PAIN 06/05/20 18:15 09/13/20 20:14 Divalproex Sodium (Depakote Er) 1,000 mg QHS PO 06/05/20 21:00 06/07/20 11:57 DC 06/06/20 20:47 Al Hydroxide/Mg Hydroxide (Mylanta Plus Xs) 15 ml PRN AFTMEALHC PRN PO DYSPEPSIA 06/05/20 18:15 Metoprolol Succinate (Toprol Xl) 25 mg DAILY PO 06/06/20 09:00 09/13/20 09:48 Trazodone HCl (Desyrel) 50 mg QHS PO 06/05/20 21:00 09/13/20 20:13 Calcium Carbonate/ Glycine (Tums) 500 mg TIDAFTMEAL PO 06/05/20 18:45 09/13/20 17:10 Magnesium Hydroxide (Milk Of Magnesia) 2,400 mg PRN QHS PRN PO CONSTIPATION 06/05/20 18:45 06/06/20 17:08 DC Multi-Ingredient Ointment (Analgesic [place]) 1 martina PRN QID PRN TP MUSCLE PAIN 06/05/20 18:45 06/06/20 17:09 DC Divalproex Sodium (Depakote Er) 1,250 mg QHS PO 06/07/20 21:00 06/15/20 19:47 DC 06/14/20 20:16 Vitamin D (Vitamin D3) 50,000 unit WEEKLY PO 06/07/20 17:15 09/13/20 09:49 Atorvastatin Calcium (Lipitor) 10 mg QHS PO 06/07/20 21:00 09/13/20 20:13 Quetiapine Fumarate (SEROquel) 25 mg QHS PO 06/09/20 21:00 09/13/20 20:12 Divalproex Sodium (Depakote Er) 250 mg QHS PO 06/15/20 21:00 06/21/20 17:39 DC 06/20/20 20:20 Divalproex Sodium (Depakote Er) 1,000 mg QHS PO 06/15/20 21:00 06/21/20 17:39 DC 06/20/20 20:21 Gabapentin (Neurontin) 300 mg BID PO 06/21/20 21:00 09/13/20 20:12 Acetaminophen/ Hydrocodone Bitart (Lortab 5/325) 1 tab PRN Q6HRS PRN PO MOD-SEV PAIN 08/17/20 17:15 09/01/20 20:38 Acetaminophen (Tylenol) 1,300 mg PRN Q8HRS PRN PO MILD PAIN / TEMP > 100.3'F 08/20/20 15:30 08/27/20 19:41 DC Acetaminophen (Tylenol) 650 mg PRN Q6HRS PRN PO MILD PAIN / TEMP > 100.3'F 08/27/20 19:45 09/13/20 20:14 I have reviewed the current psychotropics carefully including drug interactions. Risk benefit ratio favors no change other than as noted in my dictated progress note. Diagnosis: Problems: (1) Bipolar disorder, unspecified (2) Anxiety disorder, unspecified (3) Impulse control disorder, unspecified OBDULIA MOLINA MD Sep 13, 2020 20:56
[2020-09-14 06:24] VITALS: BP 143/89
[2020-09-14] MEDS: CALCIUM CARBONATE 500 MG TAB.CHEW PO SCH ×3 (07:43→17:03)
[2020-09-14] MEDS: GABAPENTIN 300 MG CAPSULE. PO SCH ×2 (07:45→20:31)
[2020-09-14] MEDS: METOPROLOL SUCC 24HR ER 25 MG TAB.ER.24H. PO SCH (07:45)
[2020-09-14] MEDS: amLODIPine BESYLATE 10 MG TABLET PO SCH (07:45)
[2020-09-14] MEDS: HYDROcodone/APAP 5/325MG 1 TAB TABLET PO PRN ×2 (08:35→14:47)
[2020-09-14] MEDS: DICLOFENAC SODIUM 1% TOPICAL GEL 100GM TUBE. TP PRN (11:29)
[2020-09-14 15:36] VITALS: BP 150/84
[2020-09-14] MEDS: ATORVASTATIN CALCIUM 10 MG TABLET. PO SCH (20:31)
[2020-09-14] MEDS: CYCLOBENZAPRINE 10 MG TABLET. PO PRN (20:31)
[2020-09-14] MEDS: ACETAMINOPHEN 325 MG TABLET PO PRN (20:31)
[2020-09-14] MEDS: traZODone 50 MG TABLET. PO SCH (20:31)
[2020-09-14] MEDS: QUEtiapine 25 MG TABLET. PO SCH (20:32)
--- NOTE | 2020-09-14 20:53 | PDOC ---
Exam Note: Jassi Note: Please also refer to the separate dictated note~for this date of service dictated separately.~Patient seen individually. Discussed the patient with Nursing staff reviewed the chart.~Reviewed interim history and current functioning. Reviewed vital signs,~Labs/ Radiology~and current medications noted below. Continue current treatment with the changes noted in the dictated addendum note Assessment: Vital Signs/I&O: Vital Signs Date Time Temp Pulse Resp B/P (MAP) Pulse Ox O2 Delivery O2 Flow Rate FiO2 09/14/20 15:36 97.4 86 17 150/84 (106) 94 09/14/20 06:24 Room Air I & O 09/13/20 09/13/20 09/14/20 15:00 23:00 07:00 Intake Total 840 ml 480 ml Balance 840 ml 480 ml Current Medications: Meds: Current Medications Medications (Trade) Dose Ordered Sig/Vicente Route PRN Reason Start Time Stop Time Status Last Admin Dose Admin Acetaminophen (Tylenol) 650 mg PRN Q6HRS PRN PO MILD PAIN / TEMP > 100.3'F 06/05/20 16:45 08/20/20 15:27 DC 08/20/20 08:58 Multi-Ingredient Ointment (Analgesic [place]) 1 martina PRN QID PRN TP MUSCLE PAIN 06/05/20 16:45 Cancel Al Hydroxide/Mg Hydroxide (Mylanta Plus Xs) 15 ml PRN AFTMEALHC PRN PO DYSPEPSIA 06/05/20 16:45 06/06/20 17:08 DC Magnesium Hydroxide (Milk Of Magnesia) 2,400 mg PRN QHS PRN PO CONSTIPATION 06/05/20 16:45 09/09/20 09:54 Acetaminophen (Tylenol) 1,000 mg BID PO 06/05/20 21:00 06/25/20 12:00 DC 06/23/20 09:08 Amlodipine Besylate (Norvasc) 5 mg DAILY PO 06/06/20 09:00 09/14/20 07:45 Cetirizine HCl (ZyrTEC) 10 mg PRN DAILY PRN PO ALLERGIES 06/05/20 18:15 07/29/20 12:21 Cyclobenzaprine HCl (Flexeril) 10 mg PRN QHS PRN PO MUSCLE SPASMS 06/05/20 18:15 09/14/20 20:31 Diclofenac Sodium (Voltaren) 1 martina PRN Q6HRS PRN TP MUSCLE SKELETAL PAIN 06/05/20 18:15 09/14/20 11:29 Divalproex Sodium (Depakote Er) 1,000 mg QHS PO 06/05/20 21:00 06/07/20 11:57 DC 06/06/20 20:47 Al Hydroxide/Mg Hydroxide (Mylanta Plus Xs) 15 ml PRN AFTMEALHC PRN PO DYSPEPSIA 06/05/20 18:15 Metoprolol Succinate (Toprol Xl) 25 mg DAILY PO 06/06/20 09:00 09/14/20 07:45 Trazodone HCl (Desyrel) 50 mg QHS PO 06/05/20 21:00 09/14/20 20:31 Calcium Carbonate/ Glycine (Tums) 500 mg TIDAFTMEAL PO 06/05/20 18:45 09/14/20 17:03 Magnesium Hydroxide (Milk Of Magnesia) 2,400 mg PRN QHS PRN PO CONSTIPATION 06/05/20 18:45 06/06/20 17:08 DC Multi-Ingredient Ointment (Analgesic [place]) 1 martina PRN QID PRN TP MUSCLE PAIN 06/05/20 18:45 06/06/20 17:09 DC Divalproex Sodium (Depakote Er) 1,250 mg QHS PO 06/07/20 21:00 06/15/20 19:47 DC 06/14/20 20:16 Vitamin D (Vitamin D3) 50,000 unit WEEKLY PO 06/07/20 17:15 09/13/20 09:49 Atorvastatin Calcium (Lipitor) 10 mg QHS PO 06/07/20 21:00 09/14/20 20:31 Quetiapine Fumarate (SEROquel) 25 mg QHS PO 06/09/20 21:00 09/14/20 20:32 Divalproex Sodium (Depakote Er) 250 mg QHS PO 06/15/20 21:00 06/21/20 17:39 DC 06/20/20 20:20 Divalproex Sodium (Depakote Er) 1,000 mg QHS PO 06/15/20 21:00 06/21/20 17:39 DC 11/8/20 20:21 Gabapentin (Neurontin) 300 mg BID PO 06/21/20 21:00 09/14/20 20:31 Acetaminophen/ Hydrocodone Bitart (Lortab 5/325) 1 tab PRN Q6HRS PRN PO MOD-SEV PAIN 08/17/20 17:15 09/14/20 14:47 Acetaminophen (Tylenol) 1,300 mg PRN Q8HRS PRN PO MILD PAIN / TEMP > 100.3'F 08/20/20 15:30 08/27/20 19:41 DC Acetaminophen (Tylenol) 650 mg PRN Q6HRS PRN PO MILD PAIN / TEMP > 100.3'F 08/27/20 19:45 09/14/20 20:31 I have reviewed the current psychotropics carefully including drug interactions. Risk benefit ratio favors no change other than as noted in my dictated progress note. Diagnosis: Problems: (1) Bipolar disorder, unspecified (2) Impulse control disorder, unspecified (3) Anxiety disorder, unspecified OBDULIA MOLINA MD Sep 14, 2020 20:53
[2020-09-15 06:12] VITALS: BP 116/68
--- NOTE | 2020-09-15 08:36 | PDOC ---
Exam Note: Jassi Note: This note is a late entry for 09/13/2020 covers elements not covered in my initial note. Subjective: The patient was seen face to face in the morning of 09/13/2020 for a treatment team meeting with Samra Hsu, Eula Ellsworth and Shirin (transition social worker), Rosana Sanchez, activity therapy and Niya HOLLINGSWORTH. I also met with the patient face to face in the evening with Shalini HOLLIGNSWORTH. Discussed with nursing staff, reviewed the chart. He slept 5 hours previous night. Overall the patient remains anxious. He was ready to leave in the morning, wanted his belongings, thought he was being discharged and somewhat anxious when he was told that the placement was still being secured. I processed this with him at length in the evening in his room as I met with him. Review of Systems: He complains of some back pain, knee pain but better than before. No CV, , pulmonary, eye system symptoms on review. Mental Status Exam: The patient is reasonably oriented. Speech is coherent, less paranoid. Abstraction is fair. Computation is impaired. Language function is intact. Mood and affect generally improved, slightly anxious.. Laboratory Data: Reviewed. Impression: Bipolar disorder unspecified. Anxiety disorder unspecified. Impulse control disorder. Plan: No change from initial note. Assessment: Vital Signs/I&O: Vital Signs Date Time Temp Pulse Resp B/P (MAP) Pulse Ox O2 Delivery O2 Flow Rate FiO2 09/15/20 06:12 97.2 63 17 116/68 (84) 96 Room Air I & O 09/14/20 09/14/20 09/15/20 15:00 23:00 07:00 Intake Total 720 ml 600 ml Balance 720 ml 600 ml Current Medications: Meds: Current Medications Medications (Trade) Dose Ordered Sig/Vicente Route PRN Reason Start Time Stop Time Status Last Admin Dose Admin Acetaminophen (Tylenol) 650 mg PRN Q6HRS PRN PO MILD PAIN / TEMP > 100.3'F 06/05/20 16:45 08/20/20 15:27 DC 08/20/20 08:58 Multi-Ingredient Ointment (Analgesic [place]) 1 martina PRN QID PRN TP MUSCLE PAIN 06/05/20 16:45 Cancel Al Hydroxide/Mg Hydroxide (Mylanta Plus Xs) 15 ml PRN AFTMEALHC PRN PO DYSPEPSIA 06/05/20 16:45 06/06/20 17:08 DC Magnesium Hydroxide (Milk Of Magnesia) 2,400 mg PRN QHS PRN PO CONSTIPATION 06/05/20 16:45 09/09/20 09:54 Acetaminophen (Tylenol) 1,000 mg BID PO 06/05/20 21:00 06/25/20 12:00 DC 06/23/20 09:08 Amlodipine Besylate (Norvasc) 5 mg DAILY PO 06/06/20 09:00 09/14/20 07:45 Cetirizine HCl (ZyrTEC) 10 mg PRN DAILY PRN PO ALLERGIES 06/05/20 18:15 07/29/20 12:21 Cyclobenzaprine HCl (Flexeril) 10 mg PRN QHS PRN PO MUSCLE SPASMS 06/05/20 18:15 09/14/20 20:31 Diclofenac Sodium (Voltaren) 1 martina PRN Q6HRS PRN TP MUSCLE SKELETAL PAIN 06/05/20 18:15 09/14/20 11:29 Divalproex Sodium (Depakote Er) 1,000 mg QHS PO 06/05/20 21:00 06/07/20 11:57 DC 06/06/20 20:47 Al Hydroxide/Mg Hydroxide (Mylanta Plus Xs) 15 ml PRN AFTMEALHC PRN PO DYSPEPSIA 06/05/20 18:15 Metoprolol Succinate (Toprol Xl) 25 mg DAILY PO 06/06/20 09:00 09/14/20 07:45 Trazodone HCl (Desyrel) 50 mg QHS PO 06/05/20 21:00 09/14/20 20:31 Calcium Carbonate/ Glycine (Tums) 500 mg TIDAFTMEAL PO 06/05/20 18:45 09/14/20 17:03 Magnesium Hydroxide (Milk Of Magnesia) 2,400 mg PRN QHS PRN PO CONSTIPATION 06/05/20 18:45 06/06/20 17:08 DC Multi-Ingredient Ointment (Analgesic [place]) 1 martina PRN QID PRN TP MUSCLE PAIN 06/05/20 18:45 06/06/20 17:09 DC Divalproex Sodium (Depakote Er) 1,250 mg QHS PO 06/07/20 21:00 06/15/20 19:47 DC 06/14/20 20:16 Vitamin D (Vitamin D3) 50,000 unit WEEKLY PO 06/07/20 17:15 09/13/20 09:49 Atorvastatin Calcium (Lipitor) 10 mg QHS PO 06/07/20 21:00 09/14/20 20:31 Quetiapine Fumarate (SEROquel) 25 mg QHS PO 06/09/20 21:00 09/14/20 20:32 Divalproex Sodium (Depakote Er) 250 mg QHS PO 06/15/20 21:00 06/21/20 17:39 DC 06/20/20 20:20 Divalproex Sodium (Depakote Er) 1,000 mg QHS PO 06/15/20 21:00 06/21/20 17:39 DC 06/20/20 20:21 Gabapentin (Neurontin) 300 mg BID PO 06/21/20 21:00 09/14/20 20:31 Acetaminophen/ Hydrocodone Bitart (Lortab 5/325) 1 tab PRN Q6HRS PRN PO MOD-SEV PAIN 08/17/20 17:15 09/14/20 14:47 Acetaminophen (Tylenol) 1,300 mg PRN Q8HRS PRN PO MILD PAIN / TEMP > 100.3'F 08/20/20 15:30 08/27/20 19:41 DC Acetaminophen (Tylenol) 650 mg PRN Q6HRS PRN PO MILD PAIN / TEMP > 100.3'F 08/27/20 19:45 09/14/20 20:31 I have reviewed the current psychotropics carefully including drug interactions. Risk benefit ratio favors no change other than as noted in my dictated progress note. Diagnosis: Problems: (1) Bipolar disorder, unspecified (2) Impulse control disorder, unspecified (3) Anxiety disorder, unspecified OBDULIA MOLINA MD Sep 15, 2020 08:35
--- NOTE | 2020-09-15 08:59 | PDOC ---
Exam Note: Jassi Note: This note is a late entry for 09/14/2020 covers elements not covered in my initial note. Subjective: The patient was seen face to face in the evening of 09/14/2020 with Ramiro HOLLINGSWORTH. Discussed with nursing staff, reviewed the chart. He slept 6-1/4 hours previous night. The patient has been somewhat withdrawn. I met with him in his room in the evening. He is still obsessing about discharge and I processed this with him. Review of Systems: No CV, , pulmonary, eye system symptoms on review. Mental Status Exam: The patient is reasonably oriented. Speech is coherent, less paranoid. Abstraction is fair. Computation is impaired. Language function is intact. Mood and affect generally improved, slightly anxious. No clear psychotic symptoms but he is obsessing about discharge. Laboratory Data: Reviewed. Impression: Bipolar disorder unspecified. Anxiety disorder unspecified. Impulse control disorder. Plan: No change from initial note. Assessment: Vital Signs/I&O: Vital Signs Date Time Temp Pulse Resp B/P (MAP) Pulse Ox O2 Delivery O2 Flow Rate FiO2 09/15/20 06:12 97.2 63 17 116/68 (84) 96 Room Air I & O 09/14/20 09/14/20 09/15/20 15:00 23:00 07:00 Intake Total 720 ml 600 ml Balance 720 ml 600 ml Current Medications: Meds: Current Medications Medications (Trade) Dose Ordered Sig/Vicente Route PRN Reason Start Time Stop Time Status Last Admin Dose Admin Acetaminophen (Tylenol) 650 mg PRN Q6HRS PRN PO MILD PAIN / TEMP > 100.3'F 06/05/20 16:45 08/20/20 15:27 DC 08/20/20 08:58 Multi-Ingredient Ointment (Analgesic [place]) 1 martina PRN QID PRN TP MUSCLE PAIN 06/05/20 16:45 Cancel Al Hydroxide/Mg Hydroxide (Mylanta Plus Xs) 15 ml PRN AFTMEALHC PRN PO DYSPEPSIA 06/05/20 16:45 06/06/20 17:08 DC Magnesium Hydroxide (Milk Of Magnesia) 2,400 mg PRN QHS PRN PO CONSTIPATION 06/05/20 16:45 09/09/20 09:54 Acetaminophen (Tylenol) 1,000 mg BID PO 06/05/20 21:00 11/13/20 12:00 DC 06/23/20 09:08 Amlodipine Besylate (Norvasc) 5 mg DAILY PO 06/06/20 09:00 09/14/20 07:45 Cetirizine HCl (ZyrTEC) 10 mg PRN DAILY PRN PO ALLERGIES 06/05/20 18:15 07/29/20 12:21 Cyclobenzaprine HCl (Flexeril) 10 mg PRN QHS PRN PO MUSCLE SPASMS 06/05/20 18:15 09/14/20 20:31 Diclofenac Sodium (Voltaren) 1 martina PRN Q6HRS PRN TP MUSCLE SKELETAL PAIN 06/05/20 18:15 09/14/20 11:29 Divalproex Sodium (Depakote Er) 1,000 mg QHS PO 06/05/20 21:00 06/07/20 11:57 DC 06/06/20 20:47 Al Hydroxide/Mg Hydroxide (Mylanta Plus Xs) 15 ml PRN AFTMEALHC PRN PO DYSPEPSIA 06/05/20 18:15 Metoprolol Succinate (Toprol Xl) 25 mg DAILY PO 06/06/20 09:00 09/14/20 07:45 Trazodone HCl (Desyrel) 50 mg QHS PO 06/05/20 21:00 09/14/20 20:31 Calcium Carbonate/ Glycine (Tums) 500 mg TIDAFTMEAL PO 06/05/20 18:45 09/14/20 17:03 Magnesium Hydroxide (Milk Of Magnesia) 2,400 mg PRN QHS PRN PO CONSTIPATION 06/05/20 18:45 06/06/20 17:08 DC Multi-Ingredient Ointment (Analgesic [place]) 1 martina PRN QID PRN TP MUSCLE PAIN 06/05/20 18:45 06/06/20 17:09 DC Divalproex Sodium (Depakote Er) 1,250 mg QHS PO 06/07/20 21:00 06/15/20 19:47 DC 06/14/20 20:16 Vitamin D (Vitamin D3) 50,000 unit WEEKLY PO 06/07/20 17:15 09/13/20 09:49 Atorvastatin Calcium (Lipitor) 10 mg QHS PO 06/07/20 21:00 09/14/20 20:31 Quetiapine Fumarate (SEROquel) 25 mg QHS PO 06/09/20 21:00 09/14/20 20:32 Divalproex Sodium (Depakote Er) 250 mg QHS PO 06/15/20 21:00 06/21/20 17:39 DC 06/20/20 20:20 Divalproex Sodium (Depakote Er) 1,000 mg QHS PO 06/15/20 21:00 06/21/20 17:39 DC 06/20/20 20:21 Gabapentin (Neurontin) 300 mg BID PO 06/21/20 21:00 09/14/20 20:31 Acetaminophen/ Hydrocodone Bitart (Lortab 5/325) 1 tab PRN Q6HRS PRN PO MOD-SEV PAIN 08/17/20 17:15 09/14/20 14:47 Acetaminophen (Tylenol) 1,300 mg PRN Q8HRS PRN PO MILD PAIN / TEMP > 100.3'F 08/20/20 15:30 08/27/20 19:41 DC Acetaminophen (Tylenol) 650 mg PRN Q6HRS PRN PO MILD PAIN / TEMP > 100.3'F 08/27/20 19:45 09/14/20 20:31 I have reviewed the current psychotropics carefully including drug interactions. Risk benefit ratio favors no change other than as noted in my dictated progress note. Diagnosis: Problems: (1) Bipolar disorder, unspecified (2) Impulse control disorder, unspecified (3) Anxiety disorder, unspecified OBDULIA MOLINA MD Sep 15, 2020 08:59
[2020-09-15] MEDS: ACETAMINOPHEN 325 MG TABLET PO PRN ×2 (09:53→19:38)
[2020-09-15] MEDS: GABAPENTIN 300 MG CAPSULE. PO SCH ×2 (09:54→19:37)
[2020-09-15] MEDS: amLODIPine BESYLATE 10 MG TABLET PO SCH (09:54)
[2020-09-15] MEDS: CALCIUM CARBONATE 500 MG TAB.CHEW PO SCH ×3 (09:54→18:19)
[2020-09-15] MEDS: METOPROLOL SUCC 24HR ER 25 MG TAB.ER.24H. PO SCH (09:54)
[2020-09-15] MEDS: DICLOFENAC SODIUM 1% TOPICAL GEL 100GM TUBE. TP PRN (10:39)
[2020-09-15] MEDS: HYDROcodone/APAP 5/325MG 1 TAB TABLET PO PRN (12:52)
[2020-09-15 15:53] VITALS: BP 146/86
[2020-09-15] MEDS: ATORVASTATIN CALCIUM 10 MG TABLET. PO SCH (19:37)
[2020-09-15] MEDS: CYCLOBENZAPRINE 10 MG TABLET. PO PRN (19:37)
[2020-09-15] MEDS: QUEtiapine 25 MG TABLET. PO SCH (19:37)
[2020-09-15] MEDS: traZODone 50 MG TABLET. PO SCH (19:38)
--- NOTE | 2020-09-15 20:52 | PDOC ---
Exam Note: Jassi Note: Please also refer to the separate dictated note~for this date of service dictated separately.~Patient seen individually. Discussed the patient with Nursing staff reviewed the chart.~Reviewed interim history and current functioning. Reviewed vital signs,~Labs/ Radiology~and current medications noted below. Continue current treatment with the changes noted in the dictated addendum note Assessment: Vital Signs/I&O: Vital Signs Date Time Temp Pulse Resp B/P (MAP) Pulse Ox O2 Delivery O2 Flow Rate FiO2 09/15/20 15:53 97.6 93 18 146/86 (106) 95.0 09/15/20 13:58 96 09/15/20 06:12 Room Air I & O 09/14/20 09/14/20 09/15/20 15:00 23:00 07:00 Intake Total 720 ml 600 ml Balance 720 ml 600 ml Current Medications: Meds: Current Medications Medications (Trade) Dose Ordered Sig/Vicente Route PRN Reason Start Time Stop Time Status Last Admin Dose Admin Acetaminophen (Tylenol) 650 mg PRN Q6HRS PRN PO MILD PAIN / TEMP > 100.3'F 06/05/20 16:45 08/20/20 15:27 DC 08/20/20 08:58 Multi-Ingredient Ointment (Analgesic [place]) 1 martina PRN QID PRN TP MUSCLE PAIN 06/05/20 16:45 Cancel Al Hydroxide/Mg Hydroxide (Mylanta Plus Xs) 15 ml PRN AFTMEALHC PRN PO DYSPEPSIA 06/05/20 16:45 06/06/20 17:08 DC Magnesium Hydroxide (Milk Of Magnesia) 2,400 mg PRN QHS PRN PO CONSTIPATION 06/05/20 16:45 09/09/20 09:54 Acetaminophen (Tylenol) 1,000 mg BID PO 06/05/20 21:00 06/25/20 12:00 DC 06/23/20 09:08 Amlodipine Besylate (Norvasc) 5 mg DAILY PO 06/06/20 09:00 09/15/20 09:54 Cetirizine HCl (ZyrTEC) 10 mg PRN DAILY PRN PO ALLERGIES 06/05/20 18:15 07/29/20 12:21 Cyclobenzaprine HCl (Flexeril) 10 mg PRN QHS PRN PO MUSCLE SPASMS 06/05/20 18:15 09/15/20 19:37 Diclofenac Sodium (Voltaren) 1 martina PRN Q6HRS PRN TP MUSCLE SKELETAL PAIN 06/05/20 18:15 09/15/20 10:39 Divalproex Sodium (Depakote Er) 1,000 mg QHS PO 06/05/20 21:00 06/07/20 11:57 DC 06/06/20 20:47 Al Hydroxide/Mg Hydroxide (Mylanta Plus Xs) 15 ml PRN AFTMEALHC PRN PO DYSPEPSIA 06/05/20 18:15 Metoprolol Succinate (Toprol Xl) 25 mg DAILY PO 06/06/20 09:00 09/15/20 09:54 Trazodone HCl (Desyrel) 50 mg QHS PO 06/05/20 21:00 09/15/20 19:38 Calcium Carbonate/ Glycine (Tums) 500 mg TIDAFTMEAL PO 06/05/20 18:45 09/15/20 18:19 Magnesium Hydroxide (Milk Of Magnesia) 2,400 mg PRN QHS PRN PO CONSTIPATION 06/05/20 18:45 06/06/20 17:08 DC Multi-Ingredient Ointment (Analgesic [place]) 1 martina PRN QID PRN TP MUSCLE PAIN 06/05/20 18:45 06/06/20 17:09 DC Divalproex Sodium (Depakote Er) 1,250 mg QHS PO 06/07/20 21:00 06/15/20 19:47 DC 06/14/20 20:16 Vitamin D (Vitamin D3) 50,000 unit WEEKLY PO 06/07/20 17:15 09/13/20 09:49 Atorvastatin Calcium (Lipitor) 10 mg QHS PO 06/07/20 21:00 09/15/20 19:37 Quetiapine Fumarate (SEROquel) 25 mg QHS PO 06/09/20 21:00 09/15/20 19:37 Divalproex Sodium (Depakote Er) 250 mg QHS PO 06/15/20 21:00 06/21/20 17:39 DC 06/20/20 20:20 Divalproex Sodium (Depakote Er) 1,000 mg QHS PO 06/15/20 21:00 11/9/20 17:39 DC 06/20/20 20:21 Gabapentin (Neurontin) 300 mg BID PO 06/21/20 21:00 09/15/20 19:37 Acetaminophen/ Hydrocodone Bitart (Lortab 5/325) 1 tab PRN Q6HRS PRN PO MOD-SEV PAIN 08/17/20 17:15 09/15/20 12:52 Acetaminophen (Tylenol) 1,300 mg PRN Q8HRS PRN PO MILD PAIN / TEMP > 100.3'F 08/20/20 15:30 08/27/20 19:41 DC Acetaminophen (Tylenol) 650 mg PRN Q6HRS PRN PO MILD PAIN / TEMP > 100.3'F 08/27/20 19:45 09/15/20 19:38 I have reviewed the current psychotropics carefully including drug interactions. Risk benefit ratio favors no change other than as noted in my dictated progress note. Diagnosis: Problems: (1) Bipolar disorder, unspecified (2) Anxiety disorder, unspecified (3) Impulse control disorder, unspecified OBDULIA MOLINA MD Sep 15, 2020 20:52
--- NOTE | 2020-09-15 23:47 | PN ---
DATE: 09/15/2020 PSYCHIATRIC PROGRESS NOTE This note covers elements not covered in my initial note 09/15/2020. SUBJECTIVE: Discussed the patient with DARRICK Leyva. Reviewed the chart. The patient slept 6-1/4 hours previous night. He spends much time in his room. He is really eager to be discharged and some of this is very understandable. I have not had the patient stay in the hospital inpatient for as long as the patient has. Social service staff are diligently working at finding him appropriate placement in coordination with his daughter who is his DPOA, but finances have impaired this process and the patient is unsafe to return just to living on his own. He had many questions for me about his discharge plans. REVIEW OF SYSTEMS: No CV, , pulmonary, eye system symptoms on review. Does complain of some back pain. MENTAL STATUS EXAM: The patient is reasonably oriented. Speech has some latency, coherent, very pleasant, verbal, interactive as I met with him in his room. No suicidal or homicidal ideation. Attention span is fair. Mood appears euthymic. No clear psychotic symptoms. LABORATORY DATA: Reviewed. IMPRESSION: Unchanged from initial note. PLAN: No change from initial note. OBDULIA MOLINA MD DR: CHANNING/eileen JOB#: [id number] / [id number]
[2020-09-16 05:50] VITALS: BP 131/86
[2020-09-16] MEDS: CALCIUM CARBONATE 500 MG TAB.CHEW PO SCH ×3 (10:13→17:26)
[2020-09-16] MEDS: GABAPENTIN 300 MG CAPSULE. PO SCH ×2 (10:14→19:48)
[2020-09-16] MEDS: METOPROLOL SUCC 24HR ER 25 MG TAB.ER.24H. PO SCH (10:14)
[2020-09-16] MEDS: HYDROcodone/APAP 5/325MG 1 TAB TABLET PO PRN (10:14)
[2020-09-16] MEDS: amLODIPine BESYLATE 10 MG TABLET PO SCH (10:14)
[2020-09-16 15:55] VITALS: BP 155/81
[2020-09-16] MEDS: ACETAMINOPHEN 325 MG TABLET PO PRN (19:48)
[2020-09-16] MEDS: CYCLOBENZAPRINE 10 MG TABLET. PO PRN (19:48)
[2020-09-16] MEDS: ATORVASTATIN CALCIUM 10 MG TABLET. PO SCH (19:48)
[2020-09-16] MEDS: traZODone 50 MG TABLET. PO SCH (19:48)
[2020-09-16] MEDS: QUEtiapine 25 MG TABLET. PO SCH (19:49)
--- NOTE | 2020-09-16 21:00 | PDOC ---
Exam Note: Jassi Note: Please also refer to the separate dictated note~for this date of service dictated separately.~Patient seen individually. Discussed the patient with Nursing staff reviewed the chart.~Reviewed interim history and current functioning. Reviewed vital signs,~Labs/ Radiology~and current medications noted below. Continue current treatment with the changes noted in the dictated addendum note Assessment: Vital Signs/I&O: Vital Signs Date Time Temp Pulse Resp B/P (MAP) Pulse Ox O2 Delivery O2 Flow Rate FiO2 09/16/20 15:55 97.5 86 16 155/81 (105) 95 09/15/20 15:53 95.0 09/15/20 06:12 Room Air I & O 09/15/20 09/15/20 09/16/20 15:00 23:00 07:00 Intake Total 600 ml 480 ml Balance 600 ml 480 ml Current Medications: Meds: Current Medications Medications (Trade) Dose Ordered Sig/Vicente Route PRN Reason Start Time Stop Time Status Last Admin Dose Admin Acetaminophen (Tylenol) 650 mg PRN Q6HRS PRN PO MILD PAIN / TEMP > 100.3'F 06/05/20 16:45 08/20/20 15:27 DC 08/20/20 08:58 Multi-Ingredient Ointment (Analgesic [place]) 1 martina PRN QID PRN TP MUSCLE PAIN 06/05/20 16:45 Cancel Al Hydroxide/Mg Hydroxide (Mylanta Plus Xs) 15 ml PRN AFTMEALHC PRN PO DYSPEPSIA 06/05/20 16:45 06/06/20 17:08 DC Magnesium Hydroxide (Milk Of Magnesia) 2,400 mg PRN QHS PRN PO CONSTIPATION 06/05/20 16:45 09/09/20 09:54 Acetaminophen (Tylenol) 1,000 mg BID PO 06/05/20 21:00 06/25/20 12:00 DC 06/23/20 09:08 Amlodipine Besylate (Norvasc) 5 mg DAILY PO 06/06/20 09:00 09/16/20 10:14 Cetirizine HCl (ZyrTEC) 10 mg PRN DAILY PRN PO ALLERGIES 06/05/20 18:15 07/29/20 12:21 Cyclobenzaprine HCl (Flexeril) 10 mg PRN QHS PRN PO MUSCLE SPASMS 06/05/20 18:15 09/16/20 19:48 Diclofenac Sodium (Voltaren) 1 martina PRN Q6HRS PRN TP MUSCLE SKELETAL PAIN 06/05/20 18:15 09/15/20 10:39 Divalproex Sodium (Depakote Er) 1,000 mg QHS PO 06/05/20 21:00 06/07/20 11:57 DC 06/06/20 20:47 Al Hydroxide/Mg Hydroxide (Mylanta Plus Xs) 15 ml PRN AFTMEALHC PRN PO DYSPEPSIA 06/05/20 18:15 Metoprolol Succinate (Toprol Xl) 25 mg DAILY PO 06/06/20 09:00 09/16/20 10:14 Trazodone HCl (Desyrel) 50 mg QHS PO 06/05/20 21:00 09/16/20 19:48 Calcium Carbonate/ Glycine (Tums) 500 mg TIDAFTMEAL PO 06/05/20 18:45 09/16/20 17:26 Magnesium Hydroxide (Milk Of Magnesia) 2,400 mg PRN QHS PRN PO CONSTIPATION 06/05/20 18:45 06/06/20 17:08 DC Multi-Ingredient Ointment (Analgesic [place]) 1 martina PRN QID PRN TP MUSCLE PAIN 06/05/20 18:45 06/06/20 17:09 DC Divalproex Sodium (Depakote Er) 1,250 mg QHS PO 06/07/20 21:00 06/15/20 19:47 DC 06/14/20 20:16 Vitamin D (Vitamin D3) 50,000 unit WEEKLY PO 06/07/20 17:15 09/13/20 09:49 Atorvastatin Calcium (Lipitor) 10 mg QHS PO 06/07/20 21:00 09/16/20 19:48 Quetiapine Fumarate (SEROquel) 25 mg QHS PO 06/09/20 21:00 09/16/20 19:49 Divalproex Sodium (Depakote Er) 250 mg QHS PO 06/15/20 21:00 06/21/20 17:39 DC 06/20/20 20:20 Divalproex Sodium (Depakote Er) 1,000 mg QHS PO 06/15/20 21:00 11/9/20 17:39 DC 06/20/20 20:21 Gabapentin (Neurontin) 300 mg BID PO 06/21/20 21:00 09/16/20 19:48 Acetaminophen/ Hydrocodone Bitart (Lortab 5/325) 1 tab PRN Q6HRS PRN PO MOD-SEV PAIN 08/17/20 17:15 09/16/20 10:14 Acetaminophen (Tylenol) 1,300 mg PRN Q8HRS PRN PO MILD PAIN / TEMP > 100.3'F 08/20/20 15:30 08/27/20 19:41 DC Acetaminophen (Tylenol) 650 mg PRN Q6HRS PRN PO MILD PAIN / TEMP > 100.3'F 08/27/20 19:45 09/16/20 19:48 I have reviewed the current psychotropics carefully including drug interactions. Risk benefit ratio favors no change other than as noted in my dictated progress note. Diagnosis: Problems: (1) Bipolar disorder, unspecified (2) Impulse control disorder, unspecified (3) Anxiety disorder, unspecified OBDULIA MOLINA MD Sep 16, 2020 21:00
[2020-09-17] MEDS: METOPROLOL SUCC 24HR ER 25 MG TAB.ER.24H. PO SCH (05:33)
[2020-09-17] MEDS: GABAPENTIN 300 MG CAPSULE. PO SCH ×2 (05:33→20:42)
[2020-09-17] MEDS: amLODIPine BESYLATE 10 MG TABLET PO SCH (05:35)
[2020-09-17] MEDS: CALCIUM CARBONATE 500 MG TAB.CHEW PO SCH ×3 (05:35→17:37)
[2020-09-17 06:09] VITALS: BP 138/83
[2020-09-17] MEDS: DICLOFENAC SODIUM 1% TOPICAL GEL 100GM TUBE. TP PRN ×2 (12:42→20:41)
[2020-09-17] MEDS: HYDROcodone/APAP 5/325MG 1 TAB TABLET PO PRN ×2 (15:09→20:42)
[2020-09-17 15:47] VITALS: BP 147/80
[2020-09-17] MEDS: traZODone 50 MG TABLET. PO SCH (20:41)
[2020-09-17] MEDS: ACETAMINOPHEN 325 MG TABLET PO PRN (20:41)
[2020-09-17] MEDS: ATORVASTATIN CALCIUM 10 MG TABLET. PO SCH (20:42)
[2020-09-17] MEDS: CYCLOBENZAPRINE 10 MG TABLET. PO PRN (20:42)
[2020-09-17] MEDS: QUEtiapine 50 MG TABLET. PO SCH (20:43)
--- NOTE | 2020-09-17 20:44 | PDOC ---
Exam Note: Jassi Note: Please also refer to the separate dictated note~for this date of service dictated separately.~Patient seen individually. Discussed the patient with Nursing staff reviewed the chart.~Reviewed interim history and current functioning. Reviewed vital signs,~Labs/ Radiology~and current medications noted below. Continue current treatment with the changes noted in the dictated addendum note Assessment: Vital Signs/I&O: Vital Signs Date Time Temp Pulse Resp B/P (MAP) Pulse Ox O2 Delivery O2 Flow Rate FiO2 09/17/20 16:10 96 09/17/20 15:47 97.6 101 20 147/80 (102) Room Air 09/15/20 15:53 95.0 I & O 0 09/16/20 09/16/20 09/17/20 14:59 22:59 06:59 Intake Total 960 ml 580 ml Balance 960 ml 580 ml Current Medications: Meds: Current Medications Medications (Trade) Dose Ordered Sig/Vicente Route PRN Reason Start Time Stop Time Status Last Admin Dose Admin Acetaminophen (Tylenol) 650 mg PRN Q6HRS PRN PO MILD PAIN / TEMP > 100.3'F 06/05/20 16:45 08/20/20 15:27 DC 08/20/20 08:58 Multi-Ingredient Ointment (Analgesic [place]) 1 martina PRN QID PRN TP MUSCLE PAIN 06/05/20 16:45 Cancel Al Hydroxide/Mg Hydroxide (Mylanta Plus Xs) 15 ml PRN AFTMEALHC PRN PO DYSPEPSIA 06/05/20 16:45 06/06/20 17:08 DC Magnesium Hydroxide (Milk Of Magnesia) 2,400 mg PRN QHS PRN PO CONSTIPATION 06/05/20 16:45 09/09/20 09:54 Acetaminophen (Tylenol) 1,000 mg BID PO 06/05/20 21:00 06/25/20 12:00 DC 06/23/20 09:08 Amlodipine Besylate (Norvasc) 5 mg DAILY PO 06/06/20 09:00 09/17/20 05:35 Cetirizine HCl (ZyrTEC) 10 mg PRN DAILY PRN PO ALLERGIES 06/05/20 18:15 07/29/20 12:21 Cyclobenzaprine HCl (Flexeril) 10 mg PRN QHS PRN PO MUSCLE SPASMS 06/05/20 18:15 09/16/20 19:48 Diclofenac Sodium (Voltaren) 1 martina PRN Q6HRS PRN TP MUSCLE SKELETAL PAIN 06/05/20 18:15 09/17/20 12:42 Divalproex Sodium (Depakote Er) 1,000 mg QHS PO 06/05/20 21:00 06/07/20 11:57 DC 06/06/20 20:47 Al Hydroxide/Mg Hydroxide (Mylanta Plus Xs) 15 ml PRN AFTMEALHC PRN PO DYSPEPSIA 06/05/20 18:15 Metoprolol Succinate (Toprol Xl) 25 mg DAILY PO 06/06/20 09:00 09/17/20 05:33 Trazodone HCl (Desyrel) 50 mg QHS PO 06/05/20 21:00 09/16/20 19:48 Calcium Carbonate/ Glycine (Tums) 500 mg TIDAFTMEAL PO 06/05/20 18:45 09/17/20 17:37 Magnesium Hydroxide (Milk Of Magnesia) 2,400 mg PRN QHS PRN PO CONSTIPATION 06/05/20 18:45 06/06/20 17:08 DC Multi-Ingredient Ointment (Analgesic [place]) 1 martina PRN QID PRN TP MUSCLE PAIN 06/05/20 18:45 06/06/20 17:09 DC Divalproex Sodium (Depakote Er) 1,250 mg QHS PO 06/07/20 21:00 06/15/20 19:47 DC 06/14/20 20:16 Vitamin D (Vitamin D3) 50,000 unit WEEKLY PO 06/07/20 17:15 09/13/20 09:49 Atorvastatin Calcium (Lipitor) 10 mg QHS PO 06/07/20 21:00 09/16/20 19:48 Quetiapine Fumarate (SEROquel) 25 mg QHS PO 06/09/20 21:00 09/17/20 17:52 DC 09/16/20 19:49 Divalproex Sodium (Depakote Er) 250 mg QHS PO 06/15/20 21:00 06/21/20 17:39 DC 06/20/20 20:20 Divalproex Sodium (Depakote Er) 1,000 mg QHS PO 06/15/20 21:00 06/21/20 17:39 DC 06/20/20 20:21 Gabapentin (Neurontin) 300 mg BID PO 06/21/20 21:00 09/17/20 05:33 Acetaminophen/ Hydrocodone Bitart (Lortab 5/325) 1 tab PRN Q6HRS PRN PO MOD-SEV PAIN 08/17/20 17:15 09/17/20 15:09 Acetaminophen (Tylenol) 1,300 mg PRN Q8HRS PRN PO MILD PAIN / TEMP > 100.3'F 08/20/20 15:30 08/27/20 19:41 DC Acetaminophen (Tylenol) 650 mg PRN Q6HRS PRN PO MILD PAIN / TEMP > 100.3'F 08/27/20 19:45 09/16/20 19:48 Quetiapine Fumarate (SEROquel) 50 mg QHS PO 09/17/20 21:00 I have reviewed the current psychotropics carefully including drug interactions. Risk benefit ratio favors no change other than as noted in my dictated progress note. Diagnosis: Problems: (1) Bipolar disorder, unspecified (2) Impulse control disorder, unspecified (3) Anxiety disorder, unspecified OBDULIA MOLINA MD Sep 17, 2020 20:44
[2020-09-18 03:22] VITALS: BP 175/85
[2020-09-18] MEDS: CALCIUM CARBONATE 500 MG TAB.CHEW PO SCH ×3 (04:45→16:59)
[2020-09-18] MEDS: GABAPENTIN 300 MG CAPSULE. PO SCH ×2 (04:45→20:02)
[2020-09-18] MEDS: amLODIPine BESYLATE 10 MG TABLET PO SCH (04:46)
[2020-09-18] MEDS: METOPROLOL SUCC 24HR ER 25 MG TAB.ER.24H. PO SCH (04:46)
--- NOTE | 2020-09-18 07:05 | PDOC ---
Exam Note: Jassi Note: This note is a late entry for 09/16/2020 covers elements not covered in my initial note. Subjective: The patient was seen face to face in the evening of 09/16/2020 with Niya HOLLINGSWORTH. Discussed with nursing staff, reviewed the chart. He slept 6-1/2 hours previous night. Overall the patient remains withdrawn into his room, does complain of some back pain, occasional knee pain but states the Lord is healing it. No clear psychotic symptoms. Review of Systems: No CV, , pulmonary, eye system symptoms on review. Mental Status Exam: The patient is reasonably oriented. He is pleasant, cooperative, did not appear psychotic, smiling and interactive, somewhat obsessive about discharge plans. Speech is coherent, less paranoid. Abstraction is fair. Computation is impaired. Language function is intact. Mood and affect anxious. No clear psychotic symptoms. Laboratory Data: Reviewed. Impression: Bipolar disorder unspecified. Anxiety disorder unspecified. Impulse control disorder. Plan: No change from initial note. Assessment: Vital Signs/I&O: Vital Signs Date Time Temp Pulse Resp B/P (MAP) Pulse Ox O2 Delivery O2 Flow Rate FiO2 09/18/20 04:46 81 175/85 09/18/20 03:22 97.6 18 96 09/17/20 15:47 Room Air 09/15/20 15:53 95.0 I & O 09/17/20 09/17/20 09/18/20 15:00 23:00 07:00 Intake Total 600 ml 360 ml Balance 600 ml 360 ml Current Medications: Meds: Current Medications Medications (Trade) Dose Ordered Sig/Vicente Route PRN Reason Start Time Stop Time Status Last Admin Dose Admin Acetaminophen (Tylenol) 650 mg PRN Q6HRS PRN PO MILD PAIN / TEMP > 100.3'F 06/05/20 16:45 08/20/20 15:27 DC 08/20/20 08:58 Multi-Ingredient Ointment (Analgesic [place]) 1 martina PRN QID PRN TP MUSCLE PAIN 06/05/20 16:45 Cancel Al Hydroxide/Mg Hydroxide (Mylanta Plus Xs) 15 ml PRN AFTMEALHC PRN PO DYSPEPSIA 06/05/20 16:45 06/06/20 17:08 DC Magnesium Hydroxide (Milk Of Magnesia) 2,400 mg PRN QHS PRN PO CONSTIPATION 10/24/20 16:45 09/09/20 09:54 Acetaminophen (Tylenol) 1,000 mg BID PO 06/05/20 21:00 06/25/20 12:00 DC 06/23/20 09:08 Amlodipine Besylate (Norvasc) 5 mg DAILY PO 06/06/20 09:00 09/18/20 04:46 Cetirizine HCl (ZyrTEC) 10 mg PRN DAILY PRN PO ALLERGIES 06/05/20 18:15 07/29/20 12:21 Cyclobenzaprine HCl (Flexeril) 10 mg PRN QHS PRN PO MUSCLE SPASMS 06/05/20 18:15 09/17/20 20:42 Diclofenac Sodium (Voltaren) 1 martina PRN Q6HRS PRN TP MUSCLE SKELETAL PAIN 06/05/20 18:15 09/17/20 20:41 Divalproex Sodium (Depakote Er) 1,000 mg QHS PO 06/05/20 21:00 06/07/20 11:57 DC 06/06/20 20:47 Al Hydroxide/Mg Hydroxide (Mylanta Plus Xs) 15 ml PRN AFTMEALHC PRN PO DYSPEPSIA 06/05/20 18:15 Metoprolol Succinate (Toprol Xl) 25 mg DAILY PO 06/06/20 09:00 09/18/20 04:46 Trazodone HCl (Desyrel) 50 mg QHS PO 06/05/20 21:00 09/17/20 20:41 Calcium Carbonate/ Glycine (Tums) 500 mg TIDAFTMEAL PO 06/05/20 18:45 09/18/20 04:45 Magnesium Hydroxide (Milk Of Magnesia) 2,400 mg PRN QHS PRN PO CONSTIPATION 06/05/20 18:45 06/06/20 17:08 DC Multi-Ingredient Ointment (Analgesic [place]) 1 martina PRN QID PRN TP MUSCLE PAIN 06/05/20 18:45 06/06/20 17:09 DC Divalproex Sodium (Depakote Er) 1,250 mg QHS PO 06/07/20 21:00 06/15/20 19:47 DC 06/14/20 20:16 Vitamin D (Vitamin D3) 50,000 unit WEEKLY PO 06/07/20 17:15 2/1/21 09:49 Atorvastatin Calcium (Lipitor) 10 mg QHS PO 06/07/20 21:00 09/17/20 20:42 Quetiapine Fumarate (SEROquel) 25 mg QHS PO 06/09/20 21:00 09/17/20 17:52 DC 09/16/20 19:49 Divalproex Sodium (Depakote Er) 250 mg QHS PO 06/15/20 21:00 06/21/20 17:39 DC 06/20/20 20:20 Divalproex Sodium (Depakote Er) 1,000 mg QHS PO 06/15/20 21:00 06/21/20 17:39 DC 06/20/20 20:21 Gabapentin (Neurontin) 300 mg BID PO 06/21/20 21:00 09/18/20 04:45 Acetaminophen/ Hydrocodone Bitart (Lortab 5/325) 1 tab PRN Q6HRS PRN PO MOD-SEV PAIN 08/17/20 17:15 09/17/20 20:42 Acetaminophen (Tylenol) 1,300 mg PRN Q8HRS PRN PO MILD PAIN / TEMP > 100.3'F 08/20/20 15:30 08/27/20 19:41 DC Acetaminophen (Tylenol) 650 mg PRN Q6HRS PRN PO MILD PAIN / TEMP > 100.3'F 08/27/20 19:45 09/17/20 20:41 Quetiapine Fumarate (SEROquel) 50 mg QHS PO 09/17/20 21:00 09/17/20 20:43 Current Medications Medications (Trade) Dose Ordered Sig/Vicente Route PRN Reason Start Time Stop Time Status Last Admin Dose Admin Quetiapine Fumarate (SEROquel) 50 mg QHS PO 09/17/20 21:00 09/17/20 20:43 I have reviewed the current psychotropics carefully including drug interactions. Risk benefit ratio favors no change other than as noted in my dictated progress note. Diagnosis: Problems: (1) Bipolar disorder, unspecified (2) Impulse control disorder, unspecified (3) Anxiety disorder, unspecified OBDULIA MOLINA MD Sep 18, 2020 07:05
--- NOTE | 2020-09-18 07:31 | PDOC ---
Exam Note: Jassi Note: This note is a late entry for 09/17/2020 covers elements not covered in my initial note. Subjective: The patient was seen face to face in the evening of 09/17/2020 with Niya HOLLINGSWORTH. Discussed with nursing staff, reviewed the chart. He slept 8-1/2 hours previous night. Previous night the patient was stating that there were two people coming to kill him. He was then talking about someone had dropped out his truck outside and he needed to take it and leave. Review of Systems: Denies any back pain or knee pain. No CV, , pulmonary, eye system symptoms on review. Mental Status Exam: The patient is reasonably oriented. He is pleasant, verbal, smiling but somewhat delusional as I specifically questioned him about the above in his room. Speech is coherent, less paranoid. Abstraction is fair. Computation is impaired. Language function is intact. Mood and affect anxious. No clear psychotic symptoms. Laboratory Data: Reviewed. Impression: Bipolar disorder unspecified. Anxiety disorder unspecified. Impulse control disorder. Plan: Continue his current psychotropics but given his psychotic symptoms, increase Seroquel from 25 mg h.s. to 50 mg h.s. Maintain trazodone 50 mg h.s., gabapentin 300 mg b.i.d. Adjust further as clinically indicated. Assessment: Vital Signs/I&O: Vital Signs Date Time Temp Pulse Resp B/P (MAP) Pulse Ox O2 Delivery O2 Flow Rate FiO2 09/18/20 04:46 81 175/85 09/18/20 03:22 97.6 18 96 09/17/20 15:47 Room Air 09/15/20 15:53 95.0 I & O 09/17/20 09/17/20 09/18/20 15:00 23:00 07:00 Intake Total 600 ml 360 ml Balance 600 ml 360 ml Current Medications: Meds: Current Medications Medications (Trade) Dose Ordered Sig/Vicente Route PRN Reason Start Time Stop Time Status Last Admin Dose Admin Acetaminophen (Tylenol) 650 mg PRN Q6HRS PRN PO MILD PAIN / TEMP > 100.3'F 06/05/20 16:45 08/20/20 15:27 DC 08/20/20 08:58 Multi-Ingredient Ointment (Analgesic [place]) 1 martina PRN QID PRN TP MUSCLE PAIN 06/05/20 16:45 Cancel Al Hydroxide/Mg Hydroxide (Mylanta Plus Xs) 15 ml PRN AFTMEALHC PRN PO DYSPEPSIA 06/05/20 16:45 06/06/20 17:08 DC Magnesium Hydroxide (Milk Of Magnesia) 2,400 mg PRN QHS PRN PO CONSTIPATION 06/05/20 16:45 09/09/20 09:54 Acetaminophen (Tylenol) 1,000 mg BID PO 06/05/20 21:00 06/25/20 12:00 DC 06/23/20 09:08 Amlodipine Besylate (Norvasc) 5 mg DAILY PO 06/06/20 09:00 09/18/20 04:46 Cetirizine HCl (ZyrTEC) 10 mg PRN DAILY PRN PO ALLERGIES 06/05/20 18:15 07/29/20 12:21 Cyclobenzaprine HCl (Flexeril) 10 mg PRN QHS PRN PO MUSCLE SPASMS 06/05/20 18:15 09/17/20 20:42 Diclofenac Sodium (Voltaren) 1 martina PRN Q6HRS PRN TP MUSCLE SKELETAL PAIN 06/05/20 18:15 09/17/20 20:41 Divalproex Sodium (Depakote Er) 1,000 mg QHS PO 06/05/20 21:00 06/07/20 11:57 DC 06/06/20 20:47 Al Hydroxide/Mg Hydroxide (Mylanta Plus Xs) 15 ml PRN AFTMEALHC PRN PO DYSPEPSIA 06/05/20 18:15 Metoprolol Succinate (Toprol Xl) 25 mg DAILY PO 06/06/20 09:00 09/18/20 04:46 Trazodone HCl (Desyrel) 50 mg QHS PO 06/05/20 21:00 09/17/20 20:41 Calcium Carbonate/ Glycine (Tums) 500 mg TIDAFTMEAL PO 06/05/20 18:45 09/18/20 04:45 Magnesium Hydroxide (Milk Of Magnesia) 2,400 mg PRN QHS PRN PO CONSTIPATION 06/05/20 18:45 06/06/20 17:08 DC Multi-Ingredient Ointment (Analgesic [place]) 1 martina PRN QID PRN TP MUSCLE PAIN 06/05/20 18:45 06/06/20 17:09 DC Divalproex Sodium (Depakote Er) 1,250 mg QHS PO 06/07/20 21:00 06/15/20 19:47 DC 06/14/20 20:16 Vitamin D (Vitamin D3) 50,000 unit WEEKLY PO 06/07/20 17:15 09/13/20 09:49 Atorvastatin Calcium (Lipitor) 10 mg QHS PO 06/07/20 21:00 09/17/20 20:42 Quetiapine Fumarate (SEROquel) 25 mg QHS PO 06/09/20 21:00 09/17/20 17:52 DC 09/16/20 19:49 Divalproex Sodium (Depakote Er) 250 mg QHS PO 06/15/20 21:00 06/21/20 17:39 DC 06/20/20 20:20 Divalproex Sodium (Depakote Er) 1,000 mg QHS PO 06/15/20 21:00 06/21/20 17:39 DC 06/20/20 20:21 Gabapentin (Neurontin) 300 mg BID PO 06/21/20 21:00 09/18/20 04:45 Acetaminophen/ Hydrocodone Bitart (Lortab 5/325) 1 tab PRN Q6HRS PRN PO MOD-SEV PAIN 08/17/20 17:15 09/17/20 20:42 Acetaminophen (Tylenol) 1,300 mg PRN Q8HRS PRN PO MILD PAIN / TEMP > 100.3'F 08/20/20 15:30 08/27/20 19:41 DC Acetaminophen (Tylenol) 650 mg PRN Q6HRS PRN PO MILD PAIN / TEMP > 100.3'F 08/27/20 19:45 09/17/20 20:41 Quetiapine Fumarate (SEROquel) 50 mg QHS PO 09/17/20 21:00 09/17/20 20:43 Current Medications Medications (Trade) Dose Ordered Sig/Vicente Route PRN Reason Start Time Stop Time Status Last Admin Dose Admin Quetiapine Fumarate (SEROquel) 50 mg QHS PO 09/17/20 21:00 09/17/20 20:43 I have reviewed the current psychotropics carefully including drug interactions. Risk benefit ratio favors no change other than as noted in my dictated progress note. Diagnosis: Problems: (1) Bipolar disorder, unspecified (2) Impulse control disorder, unspecified (3) Anxiety disorder, unspecified OBDULIA MOLINA MD Sep 18, 2020 07:31
[2020-09-18 15:52] VITALS: BP 161/92
[2020-09-18] MEDS: traZODone 50 MG TABLET. PO SCH (20:02)
[2020-09-18] MEDS: HYDROcodone/APAP 7.5/325MG 1 TAB TABLET PO PRN (20:02)
[2020-09-18] MEDS: ATORVASTATIN CALCIUM 10 MG TABLET. PO SCH (20:03)
[2020-09-18] MEDS: CLINDAMYCIN HCL 150 MG CAPSULE PO SCH (20:03)
[2020-09-18] MEDS: QUEtiapine 50 MG TABLET. PO SCH (20:03)
--- NOTE | 2020-09-18 20:58 | PDOC ---
Exam Note: Jassi Note: Please also refer to the separate dictated note~for this date of service dictated separately.~Patient seen individually. Discussed the patient with Nursing staff reviewed the chart.~Reviewed interim history and current functioning. Reviewed vital signs,~Labs/ Radiology~and current medications noted below. Continue current treatment with the changes noted in the dictated addendum note Assessment: Vital Signs/I&O: Vital Signs Date Time Temp Pulse Resp B/P (MAP) Pulse Ox O2 Delivery O2 Flow Rate FiO2 09/18/20 20:02 93 09/18/20 19:48 99.9 09/18/20 15:52 100 16 161/92 (115) 09/17/20 15:47 Room Air 09/15/20 15:53 95.0 I & O 09/17/20 09/17/20 09/18/20 15:00 23:00 07:00 Intake Total 600 ml 360 ml Balance 600 ml 360 ml Current Medications: Meds: Current Medications Medications (Trade) Dose Ordered Sig/Vicente Route PRN Reason Start Time Stop Time Status Last Admin Dose Admin Acetaminophen (Tylenol) 650 mg PRN Q6HRS PRN PO MILD PAIN / TEMP > 100.3'F 06/05/20 16:45 08/20/20 15:27 DC 08/20/20 08:58 Multi-Ingredient Ointment (Analgesic [place]) 1 martina PRN QID PRN TP MUSCLE PAIN 06/05/20 16:45 Cancel Al Hydroxide/Mg Hydroxide (Mylanta Plus Xs) 15 ml PRN AFTMEALHC PRN PO DYSPEPSIA 06/05/20 16:45 06/06/20 17:08 DC Magnesium Hydroxide (Milk Of Magnesia) 2,400 mg PRN QHS PRN PO CONSTIPATION 06/05/20 16:45 09/09/20 09:54 Acetaminophen (Tylenol) 1,000 mg BID PO 06/05/20 21:00 06/25/20 12:00 DC 06/23/20 09:08 Amlodipine Besylate (Norvasc) 5 mg DAILY PO 06/06/20 09:00 09/18/20 04:46 Cetirizine HCl (ZyrTEC) 10 mg PRN DAILY PRN PO ALLERGIES 06/05/20 18:15 07/29/20 12:21 Cyclobenzaprine HCl (Flexeril) 10 mg PRN QHS PRN PO MUSCLE SPASMS 06/05/20 18:15 09/17/20 20:42 Diclofenac Sodium (Voltaren) 1 martina PRN Q6HRS PRN TP MUSCLE SKELETAL PAIN 06/05/20 18:15 09/17/20 20:41 Divalproex Sodium (Depakote Er) 1,000 mg QHS PO 06/05/20 21:00 06/07/20 11:57 DC 06/06/20 20:47 Al Hydroxide/Mg Hydroxide (Mylanta Plus Xs) 15 ml PRN AFTMEALHC PRN PO DYSPEPSIA 06/05/20 18:15 Metoprolol Succinate (Toprol Xl) 25 mg DAILY PO 06/06/20 09:00 09/18/20 04:46 Trazodone HCl (Desyrel) 50 mg QHS PO 06/05/20 21:00 09/18/20 20:02 Calcium Carbonate/ Glycine (Tums) 500 mg TIDAFTMEAL PO 06/05/20 18:45 09/18/20 16:59 Magnesium Hydroxide (Milk Of Magnesia) 2,400 mg PRN QHS PRN PO CONSTIPATION 06/05/20 18:45 06/06/20 17:08 DC Multi-Ingredient Ointment (Analgesic [place]) 1 martina PRN QID PRN TP MUSCLE PAIN 06/05/20 18:45 06/06/20 17:09 DC Divalproex Sodium (Depakote Er) 1,250 mg QHS PO 06/07/20 21:00 06/15/20 19:47 DC 06/14/20 20:16 Vitamin D (Vitamin D3) 50,000 unit WEEKLY PO 06/07/20 17:15 09/13/20 09:49 Atorvastatin Calcium (Lipitor) 10 mg QHS PO 06/07/20 21:00 09/18/20 20:03 Quetiapine Fumarate (SEROquel) 25 mg QHS PO 06/09/20 21:00 09/17/20 17:52 DC 09/16/20 19:49 Divalproex Sodium (Depakote Er) 250 mg QHS PO 06/15/20 21:00 06/21/20 17:39 DC 06/20/20 20:20 Divalproex Sodium (Depakote Er) 1,000 mg QHS PO 06/15/20 21:00 06/21/20 17:39 DC 06/20/20 20:21 Gabapentin (Neurontin) 300 mg BID PO 06/21/20 21:00 09/18/20 20:02 Acetaminophen/ Hydrocodone Bitart (Lortab 5/325) 1 tab PRN Q6HRS PRN PO MOD-SEV PAIN 08/17/20 17:15 09/18/20 19:59 DC 09/17/20 20:42 Acetaminophen (Tylenol) 1,300 mg PRN Q8HRS PRN PO MILD PAIN / TEMP > 100.3'F 08/20/20 15:30 08/27/20 19:41 DC Acetaminophen (Tylenol) 650 mg PRN Q6HRS PRN PO MILD PAIN / TEMP > 100.3'F 08/27/20 19:45 09/17/20 20:41 Quetiapine Fumarate (SEROquel) 50 mg QHS PO 09/17/20 21:00 09/18/20 20:03 Clindamycin HCl (Cleocin) 300 mg BID PO 09/18/20 21:00 09/24/20 09:00 09/18/20 20:03 Acetaminophen/ Hydrocodone Bitart (Lortab 7.5/325) 1 tab PRN Q4HRS PRN PO PAIN 09/18/20 20:00 09/18/20 20:02 Current Medications Medications (Trade) Dose Ordered Sig/Vicente Route PRN Reason Start Time Stop Time Status Last Admin Dose Admin Quetiapine Fumarate (SEROquel) 50 mg QHS PO 09/17/20 21:00 09/18/20 20:03 Clindamycin HCl (Cleocin) 300 mg BID PO 09/18/20 21:00 09/24/20 09:00 09/18/20 20:03 Acetaminophen/ Hydrocodone Bitart (Lortab 7.5/325) 1 tab PRN Q4HRS PRN PO PAIN 09/18/20 20:00 09/18/20 20:02 I have reviewed the current psychotropics carefully including drug interactions. Risk benefit ratio favors no change other than as noted in my dictated progress note. Diagnosis: Problems: (1) Bipolar disorder, unspecified (2) Impulse control disorder, unspecified (3) Anxiety disorder, unspecified JESSE,MAN M MD Sep 18, 2020 20:58
[2020-09-19] MEDS: HYDROcodone/APAP 7.5/325MG 1 TAB TABLET PO PRN (05:40)
[2020-09-19 05:56] VITALS: BP 114/70
--- NOTE | 2020-09-19 08:00 | PDOC ---
Exam Note: Jassi Note: This note is a late entry for 09/18/2020 covers elements not covered in my initial note. Subjective: The patient was seen on telehealth rounds in the evening of 09/18/2020 with Bi HOLLINGSWORTH. Discussed with nursing staff, reviewed the chart. He slept 5-1/4 hours previous night. Overall the patient has done well, has been calm, somewhat isolative, spending much time in his room. He has some facial swelling from a tooth abscess and reportedly has been started on antibiotics per Dr. Marinelli. Review of Systems: Other than discomfort in his mouth, no CV, , pulmonary, eye system symptoms on review. Mental Status Exam: The patient is reasonably oriented. Speech is coherent. Abstraction is fair. Computation is impaired. Language function is intact. Mood and affect is improved, less paranoid. Laboratory Data: Reviewed. Impression: Bipolar disorder unspecified. Anxiety disorder unspecified. Impulse control disorder. Plan: Continue his current psychotropics. Assessment: Vital Signs/I&O: Vital Signs Date Time Temp Pulse Resp B/P (MAP) Pulse Ox O2 Delivery O2 Flow Rate FiO2 09/19/20 07:45 18 Room Air 09/19/20 05:56 98.1 88 114/70 (85) 94 09/15/20 15:53 95.0 I & O 09/18/20 09/18/20 09/19/20 15:00 23:00 07:00 Intake Total 840 ml 480 ml Balance 840 ml 480 ml Current Medications: Meds: Current Medications Medications (Trade) Dose Ordered Sig/Vicente Route PRN Reason Start Time Stop Time Status Last Admin Dose Admin Acetaminophen (Tylenol) 650 mg PRN Q6HRS PRN PO MILD PAIN / TEMP > 100.3'F 06/05/20 16:45 08/20/20 15:27 DC 08/20/20 08:58 Multi-Ingredient Ointment (Analgesic [place]) 1 martina PRN QID PRN TP MUSCLE PAIN 06/05/20 16:45 Cancel Al Hydroxide/Mg Hydroxide (Mylanta Plus Xs) 15 ml PRN AFTMEALHC PRN PO DYSPEPSIA 06/05/20 16:45 06/06/20 17:08 DC Magnesium Hydroxide (Milk Of Magnesia) 2,400 mg PRN QHS PRN PO CONSTIPATION 06/05/20 16:45 09/09/20 09:54 Acetaminophen (Tylenol) 1,000 mg BID PO 06/05/20 21:00 06/25/20 12:00 DC 06/23/20 09:08 Amlodipine Besylate (Norvasc) 5 mg DAILY PO 06/06/20 09:00 09/18/20 04:46 Cetirizine HCl (ZyrTEC) 10 mg PRN DAILY PRN PO ALLERGIES 06/05/20 18:15 07/29/20 12:21 Cyclobenzaprine HCl (Flexeril) 10 mg PRN QHS PRN PO MUSCLE SPASMS 06/05/20 18:15 09/17/20 20:42 Diclofenac Sodium (Voltaren) 1 martina PRN Q6HRS PRN TP MUSCLE SKELETAL PAIN 06/05/20 18:15 09/17/20 20:41 Divalproex Sodium (Depakote Er) 1,000 mg QHS PO 06/05/20 21:00 06/07/20 11:57 DC 06/06/20 20:47 Al Hydroxide/Mg Hydroxide (Mylanta Plus Xs) 15 ml PRN AFTMEALHC PRN PO DYSPEPSIA 06/05/20 18:15 Metoprolol Succinate (Toprol Xl) 25 mg DAILY PO 06/06/20 09:00 09/18/20 04:46 Trazodone HCl (Desyrel) 50 mg QHS PO 06/05/20 21:00 09/18/20 20:02 Calcium Carbonate/ Glycine (Tums) 500 mg TIDAFTMEAL PO 06/05/20 18:45 09/18/20 16:59 Magnesium Hydroxide (Milk Of Magnesia) 2,400 mg PRN QHS PRN PO CONSTIPATION 06/05/20 18:45 06/06/20 17:08 DC Multi-Ingredient Ointment (Analgesic [place]) 1 martina PRN QID PRN TP MUSCLE PAIN 06/05/20 18:45 06/06/20 17:09 DC Divalproex Sodium (Depakote Er) 1,250 mg QHS PO 06/07/20 21:00 06/15/20 19:47 DC 06/14/20 20:16 Vitamin D (Vitamin D3) 50,000 unit WEEKLY PO 06/07/20 17:15 09/13/20 09:49 Atorvastatin Calcium (Lipitor) 10 mg QHS PO 06/07/20 21:00 09/18/20 20:03 Quetiapine Fumarate (SEROquel) 25 mg QHS PO 06/09/20 21:00 09/17/20 17:52 DC 09/16/20 19:49 Divalproex Sodium (Depakote Er) 250 mg QHS PO 06/15/20 21:00 06/21/20 17:39 DC 06/20/20 20:20 Divalproex Sodium (Depakote Er) 1,000 mg QHS PO 06/15/20 21:00 06/21/20 17:39 DC 06/20/20 20:21 Gabapentin (Neurontin) 300 mg BID PO 06/21/20 21:00 09/18/20 20:02 Acetaminophen/ Hydrocodone Bitart (Lortab 5/325) 1 tab PRN Q6HRS PRN PO MOD-SEV PAIN 08/17/20 17:15 09/18/20 19:59 DC 09/17/20 20:42 Acetaminophen (Tylenol) 1,300 mg PRN Q8HRS PRN PO MILD PAIN / TEMP > 100.3'F 08/20/20 15:30 08/27/20 19:41 DC Acetaminophen (Tylenol) 650 mg PRN Q6HRS PRN PO MILD PAIN / TEMP > 100.3'F 08/27/20 19:45 09/17/20 20:41 Quetiapine Fumarate (SEROquel) 50 mg QHS PO 09/17/20 21:00 09/18/20 20:03 Clindamycin HCl (Cleocin) 300 mg BID PO 09/18/20 21:00 09/24/20 09:00 09/18/20 20:03 Acetaminophen/ Hydrocodone Bitart (Lortab 7.5/325) 1 tab PRN Q4HRS PRN PO PAIN 09/18/20 20:00 09/19/20 05:40 Current Medications Medications (Trade) Dose Ordered Sig/Vicente Route PRN Reason Start Time Stop Time Status Last Admin Dose Admin Clindamycin HCl (Cleocin) 300 mg BID PO 09/18/20 21:00 09/24/20 09:00 09/18/20 20:03 Acetaminophen/ Hydrocodone Bitart (Lortab 7.5/325) 1 tab PRN Q4HRS PRN PO PAIN 09/18/20 20:00 09/19/20 05:40 I have reviewed the current psychotropics carefully including drug interactions. Risk benefit ratio favors no change other than as noted in my dictated progress note. Diagnosis: Problems: (1) Bipolar disorder, unspecified (2) Anxiety disorder, unspecified (3) Impulse control disorder, unspecified OBDULIA MOLINA MD Sep 19, 2020 08:00
[2020-09-19] MEDS: CALCIUM CARBONATE 500 MG TAB.CHEW PO SCH ×3 (08:26→17:21)
[2020-09-19] MEDS: METOPROLOL SUCC 24HR ER 25 MG TAB.ER.24H. PO SCH (08:26)
[2020-09-19] MEDS: amLODIPine BESYLATE 10 MG TABLET PO SCH (08:26)
[2020-09-19] MEDS: GABAPENTIN 300 MG CAPSULE. PO SCH ×2 (08:26→20:08)
[2020-09-19] MEDS: CLINDAMYCIN HCL 150 MG CAPSULE PO SCH ×2 (08:27→20:07)
[2020-09-19 15:00] VITALS: BP 120/74
[2020-09-19] MEDS: ATORVASTATIN CALCIUM 10 MG TABLET. PO SCH (20:07)
[2020-09-19] MEDS: ACETAMINOPHEN 325 MG TABLET PO PRN (20:07)
[2020-09-19] MEDS: QUEtiapine 50 MG TABLET. PO SCH (20:08)
[2020-09-19] MEDS: traZODone 50 MG TABLET. PO SCH (20:08)
--- NOTE | 2020-09-19 20:52 | PDOC ---
Exam Note: Jassi Note: Please also refer to the separate dictated note~for this date of service dictated separately.~Patient seen individually. Discussed the patient with Nursing staff reviewed the chart.~Reviewed interim history and current functioning. Reviewed vital signs,~Labs/ Radiology~and current medications noted below. Continue current treatment with the changes noted in the dictated addendum note Assessment: Vital Signs/I&O: Vital Signs Date Time Temp Pulse Resp B/P (MAP) Pulse Ox O2 Delivery O2 Flow Rate FiO2 09/19/20 15:00 97.4 102 24 120/74 (89) 98 Room Air 09/15/20 15:53 95.0 I & O 09/18/20 09/18/20 09/19/20 15:00 23:00 07:00 Intake Total 840 ml 480 ml Balance 840 ml 480 ml Current Medications: Meds: Current Medications Medications (Trade) Dose Ordered Sig/Vicente Route PRN Reason Start Time Stop Time Status Last Admin Dose Admin Acetaminophen (Tylenol) 650 mg PRN Q6HRS PRN PO MILD PAIN / TEMP > 100.3'F 06/05/20 16:45 08/20/20 15:27 DC 08/20/20 08:58 Multi-Ingredient Ointment (Analgesic [place]) 1 martina PRN QID PRN TP MUSCLE PAIN 06/05/20 16:45 Cancel Al Hydroxide/Mg Hydroxide (Mylanta Plus Xs) 15 ml PRN AFTMEALHC PRN PO DYSPEPSIA 06/05/20 16:45 06/06/20 17:08 DC Magnesium Hydroxide (Milk Of Magnesia) 2,400 mg PRN QHS PRN PO CONSTIPATION 06/05/20 16:45 09/09/20 09:54 Acetaminophen (Tylenol) 1,000 mg BID PO 06/05/20 21:00 06/25/20 12:00 DC 06/23/20 09:08 Amlodipine Besylate (Norvasc) 5 mg DAILY PO 06/06/20 09:00 09/19/20 08:26 Cetirizine HCl (ZyrTEC) 10 mg PRN DAILY PRN PO ALLERGIES 06/05/20 18:15 07/29/20 12:21 Cyclobenzaprine HCl (Flexeril) 10 mg PRN QHS PRN PO MUSCLE SPASMS 06/05/20 18:15 09/17/20 20:42 Diclofenac Sodium (Voltaren) 1 martina PRN Q6HRS PRN TP MUSCLE SKELETAL PAIN 06/05/20 18:15 09/17/20 20:41 Divalproex Sodium (Depakote Er) 1,000 mg QHS PO 06/05/20 21:00 06/07/20 11:57 DC 06/06/20 20:47 Al Hydroxide/Mg Hydroxide (Mylanta Plus Xs) 15 ml PRN AFTMEALHC PRN PO DYSPEPSIA 06/05/20 18:15 Metoprolol Succinate (Toprol Xl) 25 mg DAILY PO 06/06/20 09:00 09/19/20 08:26 Trazodone HCl (Desyrel) 50 mg QHS PO 06/05/20 21:00 09/19/20 20:08 Calcium Carbonate/ Glycine (Tums) 500 mg TIDAFTMEAL PO 06/05/20 18:45 09/19/20 17:21 Magnesium Hydroxide (Milk Of Magnesia) 2,400 mg PRN QHS PRN PO CONSTIPATION 06/05/20 18:45 06/06/20 17:08 DC Multi-Ingredient Ointment (Analgesic [place]) 1 martina PRN QID PRN TP MUSCLE PAIN 06/05/20 18:45 06/06/20 17:09 DC Divalproex Sodium (Depakote Er) 1,250 mg QHS PO 06/07/20 21:00 06/15/20 19:47 DC 06/14/20 20:16 Vitamin D (Vitamin D3) 50,000 unit WEEKLY PO 06/07/20 17:15 09/13/20 09:49 Atorvastatin Calcium (Lipitor) 10 mg QHS PO 06/07/20 21:00 09/19/20 20:07 Quetiapine Fumarate (SEROquel) 25 mg QHS PO 06/09/20 21:00 09/17/20 17:52 DC 09/16/20 19:49 Divalproex Sodium (Depakote Er) 250 mg QHS PO 06/15/20 21:00 06/21/20 17:39 DC 06/20/20 20:20 Divalproex Sodium (Depakote Er) 1,000 mg QHS PO 06/15/20 21:00 06/21/20 17:39 DC 06/20/20 20:21 Gabapentin (Neurontin) 300 mg BID PO 06/21/20 21:00 09/19/20 20:08 Acetaminophen/ Hydrocodone Bitart (Lortab 5/325) 1 tab PRN Q6HRS PRN PO MOD-SEV PAIN 08/17/20 17:15 09/18/20 19:59 DC 09/17/20 20:42 Acetaminophen (Tylenol) 1,300 mg PRN Q8HRS PRN PO MILD PAIN / TEMP > 100.3'F 08/20/20 15:30 08/27/20 19:41 DC Acetaminophen (Tylenol) 650 mg PRN Q6HRS PRN PO MILD PAIN / TEMP > 100.3'F 08/27/20 19:45 09/19/20 20:07 Quetiapine Fumarate (SEROquel) 50 mg QHS PO 09/17/20 21:00 09/19/20 20:08 Clindamycin HCl (Cleocin) 300 mg BID PO 09/18/20 21:00 09/24/20 09:00 09/19/20 20:07 Acetaminophen/ Hydrocodone Bitart (Lortab 7.5/325) 1 tab PRN Q4HRS PRN PO PAIN 09/18/20 20:00 09/19/20 05:40 Current Medications Medications (Trade) Dose Ordered Sig/Vicente Route PRN Reason Start Time Stop Time Status Last Admin Dose Admin Clindamycin HCl (Cleocin) 300 mg BID PO 09/18/20 21:00 09/24/20 09:00 09/19/20 20:07 I have reviewed the current psychotropics carefully including drug interactions. Risk benefit ratio favors no change other than as noted in my dictated progress note. Diagnosis: Problems: (1) Bipolar disorder, unspecified (2) Impulse control disorder, unspecified (3) Anxiety disorder, unspecified OBDULIA MOLINA MD Sep 19, 2020 20:52
--- NOTE | 2020-09-19 21:40 | PN ---
DATE: 09/19/2020 PSYCHIATRIC PROGRESS NOTE This note covers elements not covered in my initial note. SUBJECTIVE: I met with the patient evening of 09/19/2020 on telehealth rounds in the evening in his room. Discussed with DARRICK Munoz and reviewed the chart. The patient slept 7-3/4 hours previous night. Overall, he remains withdrawn, spends much time in his room. Otherwise, appropriate. No suicidal or homicidal ideation. REVIEW OF SYSTEMS: Still complains of mild discomfort due to infected tooth, but no CV, , pulmonary, eye system symptoms on review. MENTAL STATUS EXAM: Oriented to himself and situation. Speech has some latency, coherent. Abstraction fair, computation impaired, language function intact. Mood and affect withdrawn, but improved. LABORATORY DATA: Reviewed. IMPRESSION: Unchanged from initial note. PLAN: No change from initial note. He remains on antibiotics for his infected tooth and is improving. OBDULIA MOLINA MD DR: CHANNING/eileen JOB#: [id number] / [id number]
[2020-09-20 06:16] VITALS: BP 117/71
[2020-09-20] MEDS: CLINDAMYCIN HCL 150 MG CAPSULE PO SCH ×2 (08:07→19:40)
[2020-09-20] MEDS: GABAPENTIN 300 MG CAPSULE. PO SCH ×2 (08:08→19:40)
[2020-09-20] MEDS: amLODIPine BESYLATE 10 MG TABLET PO SCH (08:08)
[2020-09-20] MEDS: METOPROLOL SUCC 24HR ER 25 MG TAB.ER.24H. PO SCH (08:08)
[2020-09-20] MEDS: CALCIUM CARBONATE 500 MG TAB.CHEW PO SCH ×3 (08:08→17:01)
[2020-09-20] MEDS: CHOLECALCIFEROL (VITAMIN D3) 50,000 UNIT CAPSULE PO SCH (08:11)
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
[2020-09-20] MEDS: MAGNESIUM HYDROXIDE 2,400 MG/30 ML ORAL.SUSP. PO PRN (14:41)
[2020-09-20 15:13] VITALS: BP 131/72
[2020-09-20] MEDS: LACTOBACILLUS RHAMNOSUS GG 1 CAPSULE. PO SCH (19:39)
[2020-09-20] MEDS: QUEtiapine 50 MG TABLET. PO SCH (19:39)
[2020-09-20] MEDS: ATORVASTATIN CALCIUM 10 MG TABLET. PO SCH (19:39)
[2020-09-20] MEDS: ACETAMINOPHEN 325 MG TABLET PO PRN (19:39)
[2020-09-20] MEDS: CYCLOBENZAPRINE 10 MG TABLET. PO PRN (19:39)
[2020-09-20] MEDS: traZODone 50 MG TABLET. PO SCH (19:40)
--- NOTE | 2020-09-20 21:23 | PDOC ---
Exam Note: Jassi Note: Please also refer to the separate dictated note~for this date of service dictated separately.~Patient seen individually. Discussed the patient with Nursing staff reviewed the chart.~Reviewed interim history and current functioning. Reviewed vital signs,~Labs/ Radiology~and current medications noted below. Continue current treatment with the changes noted in the dictated addendum note Assessment: Vital Signs/I&O: Vital Signs Date Time Temp Pulse Resp B/P (MAP) Pulse Ox O2 Delivery O2 Flow Rate FiO2 09/20/20 15:13 97.9 110 18 131/72 (91) 97 09/19/20 15:00 Room Air 09/15/20 15:53 95.0 I & O 09/19/20 09/19/20 09/20/20 15:00 23:00 07:00 Intake Total 720 ml 480 ml Balance 720 ml 480 ml Current Medications: Meds: Current Medications Medications (Trade) Dose Ordered Sig/Vicente Route PRN Reason Start Time Stop Time Status Last Admin Dose Admin Lactobacillus Rhamnosus (Culturelle) 1 cap BID PO 09/20/20 21:00 09/20/20 19:39 I have reviewed the current psychotropics carefully including drug interactions. Risk benefit ratio favors no change other than as noted in my dictated progress note. Diagnosis: Problems: (1) Bipolar disorder, unspecified (2) Anxiety disorder, unspecified (3) Impulse control disorder, unspecified OBDULIA MOLINA MD Sep 20, 2020 21:23
[2020-09-21 06:13] VITALS: BP 128/82
--- NOTE | 2020-09-21 08:20 | PDOC ---
Exam Note: Jassi Note: This note is a late entry for 09/20/2020 covers elements not covered in my initial note. Subjective: The patient was seen face to face in the morning of 09/20/2020 for a treatment team meeting with Samra Hsu, Eula Ellsworth and Shirin (rn social work), Rosana Sanchez, activity therapy and Michelle HOLLINGSWORTH, reviewed the chart. The patients progress was reassessed and placement options being pursued actively by social service staff. This has been frustrating due to payor source problems. Review of Systems: Positive for some discomfort in his mouth, but swelling is better as he is on the antibiotics for infected tooth. No CV, , pulmonary, eye system symptoms on review. Mental Status Exam: The patient is reasonably oriented. I met with him in his room. Speech is coherent. Abstraction is fair. Computation is impaired. Language function is intact. Mood and affect is improved. Laboratory Data: Reviewed. Impression: Bipolar disorder unspecified. Anxiety disorder unspecified. Impulse control disorder. Plan: Continue his current psychotropics. Assessment: Vital Signs/I&O: Vital Signs Date Time Temp Pulse Resp B/P (MAP) Pulse Ox O2 Delivery O2 Flow Rate FiO2 09/21/20 06:13 98.5 89 18 128/82 (97) 94 09/19/20 15:00 Room Air 09/15/20 15:53 95.0 I & O 09/20/20 09/20/20 09/21/20 14:59 22:59 06:59 Intake Total 840 ml 720 ml Balance 840 ml 720 ml Current Medications: Meds: Current Medications Medications (Trade) Dose Ordered Sig/Vicente Route PRN Reason Start Time Stop Time Status Last Admin Dose Admin Acetaminophen (Tylenol) 650 mg PRN Q6HRS PRN PO MILD PAIN / TEMP > 100.3'F 06/05/20 16:45 08/20/20 15:27 DC 08/20/20 08:58 Multi-Ingredient Ointment (Analgesic [place]) 1 martina PRN QID PRN TP MUSCLE PAIN 06/05/20 16:45 Cancel Al Hydroxide/Mg Hydroxide (Mylanta Plus Xs) 15 ml PRN AFTMEALHC PRN PO DYSPEPSIA 06/05/20 16:45 06/06/20 17:08 DC Magnesium Hydroxide (Milk Of Magnesia) 2,400 mg PRN QHS PRN PO CONSTIPATION 06/05/20 16:45 09/20/20 14:41 Acetaminophen (Tylenol) 1,000 mg BID PO 06/05/20 21:00 06/25/20 12:00 DC 06/23/20 09:08 Amlodipine Besylate (Norvasc) 5 mg DAILY PO 06/06/20 09:00 09/20/20 08:08 Cetirizine HCl (ZyrTEC) 10 mg PRN DAILY PRN PO ALLERGIES 06/05/20 18:15 07/29/20 12:21 Cyclobenzaprine HCl (Flexeril) 10 mg PRN QHS PRN PO MUSCLE SPASMS 06/05/20 18:15 09/20/20 19:39 Diclofenac Sodium (Voltaren) 1 martina PRN Q6HRS PRN TP MUSCLE SKELETAL PAIN 06/05/20 18:15 09/17/20 20:41 Divalproex Sodium (Depakote Er) 1,000 mg QHS PO 06/05/20 21:00 06/07/20 11:57 DC 06/06/20 20:47 Al Hydroxide/Mg Hydroxide (Mylanta Plus Xs) 15 ml PRN AFTMEALHC PRN PO DYSPEPSIA 06/05/20 18:15 Metoprolol Succinate (Toprol Xl) 25 mg DAILY PO 06/06/20 09:00 09/20/20 08:08 Trazodone HCl (Desyrel) 50 mg QHS PO 06/05/20 21:00 09/20/20 19:40 Calcium Carbonate/ Glycine (Tums) 500 mg TIDAFTMEAL PO 06/05/20 18:45 09/20/20 17:01 Magnesium Hydroxide (Milk Of Magnesia) 2,400 mg PRN QHS PRN PO CONSTIPATION 06/05/20 18:45 06/06/20 17:08 DC Multi-Ingredient Ointment (Analgesic [place]) 1 martina PRN QID PRN TP MUSCLE PAIN 06/05/20 18:45 06/06/20 17:09 DC Divalproex Sodium (Depakote Er) 1,250 mg QHS PO 06/07/20 21:00 06/15/20 19:47 DC 06/14/20 20:16 Vitamin D (Vitamin D3) 50,000 unit WEEKLY PO 06/07/20 17:15 09/20/20 08:11 Atorvastatin Calcium (Lipitor) 10 mg QHS PO 06/07/20 21:00 09/20/20 19:39 Quetiapine Fumarate (SEROquel) 25 mg QHS PO 06/09/20 21:00 09/17/20 17:52 DC 09/16/20 19:49 Divalproex Sodium (Depakote Er) 250 mg QHS PO 06/15/20 21:00 06/21/20 17:39 DC 06/20/20 20:20 Divalproex Sodium (Depakote Er) 1,000 mg QHS PO 06/15/20 21:00 06/21/20 17:39 DC 06/20/20 20:21 Gabapentin (Neurontin) 300 mg BID PO 06/21/20 21:00 09/20/20 19:40 Acetaminophen/ Hydrocodone Bitart (Lortab 5/325) 1 tab PRN Q6HRS PRN PO MOD-SEV PAIN 08/17/20 17:15 09/18/20 19:59 DC 09/17/20 20:42 Acetaminophen (Tylenol) 1,300 mg PRN Q8HRS PRN PO MILD PAIN / TEMP > 100.3'F 08/20/20 15:30 08/27/20 19:41 DC Acetaminophen (Tylenol) 650 mg PRN Q6HRS PRN PO MILD PAIN / TEMP > 100.3'F 08/27/20 19:45 09/20/20 19:39 Quetiapine Fumarate (SEROquel) 50 mg QHS PO 09/17/20 21:00 09/20/20 19:39 Clindamycin HCl (Cleocin) 300 mg BID PO 09/18/20 21:00 09/24/20 09:00 09/20/20 19:40 Acetaminophen/ Hydrocodone Bitart (Lortab 7.5/325) 1 tab PRN Q4HRS PRN PO PAIN 09/18/20 20:00 09/19/20 05:40 Lactobacillus Rhamnosus (Culturelle) 1 cap BID PO 09/20/20 21:00 09/20/20 19:39 Current Medications Medications (Trade) Dose Ordered Sig/Vicente Route PRN Reason Start Time Stop Time Status Last Admin Dose Admin Lactobacillus Rhamnosus (Culturelle) 1 cap BID PO 09/20/20 21:00 09/20/20 19:39 I have reviewed the current psychotropics carefully including drug interactions. Risk benefit ratio favors no change other than as noted in my dictated progress note. Diagnosis: Problems: (1) Impulse control disorder, unspecified (2) Anxiety disorder, unspecified (3) Bipolar disorder, unspecified OBDULIA MOLINA MD Sep 21, 2020 08:20
[2020-09-21] MEDS: CLINDAMYCIN HCL 150 MG CAPSULE PO SCH ×2 (08:54→20:03)
[2020-09-21] MEDS: GABAPENTIN 300 MG CAPSULE. PO SCH ×2 (08:54→20:03)
[2020-09-21] MEDS: amLODIPine BESYLATE 10 MG TABLET PO SCH (08:54)
[2020-09-21] MEDS: CALCIUM CARBONATE 500 MG TAB.CHEW PO SCH ×3 (08:54→17:41)
[2020-09-21] MEDS: LACTOBACILLUS RHAMNOSUS GG 1 CAPSULE. PO SCH ×2 (08:54→20:03)
[2020-09-21] MEDS: METOPROLOL SUCC 24HR ER 25 MG TAB.ER.24H. PO SCH (08:55)
[2020-09-21 15:42] VITALS: BP 126/76
[2020-09-21] MEDS: ATORVASTATIN CALCIUM 10 MG TABLET. PO SCH (20:03)
[2020-09-21] MEDS: traZODone 50 MG TABLET. PO SCH (20:03)
[2020-09-21] MEDS: QUEtiapine 50 MG TABLET. PO SCH (20:04)
--- NOTE | 2020-09-21 20:48 | PDOC ---
Exam Note: Jassi Note: Please also refer to the separate dictated note~for this date of service dictated separately.~Patient seen individually. Discussed the patient with Nursing staff reviewed the chart.~Reviewed interim history and current functioning. Reviewed vital signs,~Labs/ Radiology~and current medications noted below. Continue current treatment with the changes noted in the dictated addendum note Assessment: Vital Signs/I&O: Vital Signs Date Time Temp Pulse Resp B/P (MAP) Pulse Ox O2 Delivery O2 Flow Rate FiO2 09/21/20 15:42 98.8 94 16 126/76 (93) 95 09/19/20 15:00 Room Air 09/15/20 15:53 95.0 I & O 09/20/20 09/20/20 09/21/20 15:00 23:00 07:00 Intake Total 840 ml 720 ml Balance 840 ml 720 ml Current Medications: Meds: Current Medications Medications (Trade) Dose Ordered Sig/Vicente Route PRN Reason Start Time Stop Time Status Last Admin Dose Admin Acetaminophen (Tylenol) 650 mg PRN Q6HRS PRN PO MILD PAIN / TEMP > 100.3'F 06/05/20 16:45 08/20/20 15:27 DC 08/20/20 08:58 Multi-Ingredient Ointment (Analgesic [place]) 1 martina PRN QID PRN TP MUSCLE PAIN 06/05/20 16:45 Cancel Al Hydroxide/Mg Hydroxide (Mylanta Plus Xs) 15 ml PRN AFTMEALHC PRN PO DYSPEPSIA 06/05/20 16:45 06/06/20 17:08 DC Magnesium Hydroxide (Milk Of Magnesia) 2,400 mg PRN QHS PRN PO CONSTIPATION 06/05/20 16:45 09/20/20 14:41 Acetaminophen (Tylenol) 1,000 mg BID PO 06/05/20 21:00 06/25/20 12:00 DC 06/23/20 09:08 Amlodipine Besylate (Norvasc) 5 mg DAILY PO 06/06/20 09:00 09/21/20 08:54 Cetirizine HCl (ZyrTEC) 10 mg PRN DAILY PRN PO ALLERGIES 06/05/20 18:15 07/29/20 12:21 Cyclobenzaprine HCl (Flexeril) 10 mg PRN QHS PRN PO MUSCLE SPASMS 06/05/20 18:15 09/20/20 19:39 Diclofenac Sodium (Voltaren) 1 martina PRN Q6HRS PRN TP MUSCLE SKELETAL PAIN 06/05/20 18:15 09/17/20 20:41 Divalproex Sodium (Depakote Er) 1,000 mg QHS PO 06/05/20 21:00 06/07/20 11:57 DC 06/06/20 20:47 Al Hydroxide/Mg Hydroxide (Mylanta Plus Xs) 15 ml PRN AFTMEALHC PRN PO DYSPEPSIA 06/05/20 18:15 Metoprolol Succinate (Toprol Xl) 25 mg DAILY PO 06/06/20 09:00 09/21/20 08:55 Trazodone HCl (Desyrel) 50 mg QHS PO 06/05/20 21:00 09/21/20 20:03 Calcium Carbonate/ Glycine (Tums) 500 mg TIDAFTMEAL PO 06/05/20 18:45 09/21/20 17:41 Magnesium Hydroxide (Milk Of Magnesia) 2,400 mg PRN QHS PRN PO CONSTIPATION 06/05/20 18:45 06/06/20 17:08 DC Multi-Ingredient Ointment (Analgesic [place]) 1 martina PRN QID PRN TP MUSCLE PAIN 06/05/20 18:45 06/06/20 17:09 DC Divalproex Sodium (Depakote Er) 1,250 mg QHS PO 06/07/20 21:00 06/15/20 19:47 DC 06/14/20 20:16 Vitamin D (Vitamin D3) 50,000 unit WEEKLY PO 06/07/20 17:15 09/20/20 08:11 Atorvastatin Calcium (Lipitor) 10 mg QHS PO 06/07/20 21:00 09/21/20 20:03 Quetiapine Fumarate (SEROquel) 25 mg QHS PO 06/09/20 21:00 09/17/20 17:52 DC 09/16/20 19:49 Divalproex Sodium (Depakote Er) 250 mg QHS PO 06/15/20 21:00 06/21/20 17:39 DC 06/20/20 20:20 Divalproex Sodium (Depakote Er) 1,000 mg QHS PO 06/15/20 21:00 06/21/20 17:39 DC 06/20/20 20:21 Gabapentin (Neurontin) 300 mg BID PO 06/21/20 21:00 09/21/20 20:03 Acetaminophen/ Hydrocodone Bitart (Lortab 5/325) 1 tab PRN Q6HRS PRN PO MOD-SEV PAIN 08/17/20 17:15 09/18/20 19:59 DC 09/17/20 20:42 Acetaminophen (Tylenol) 1,300 mg PRN Q8HRS PRN PO MILD PAIN / TEMP > 100.3'F 08/20/20 15:30 08/27/20 19:41 DC Acetaminophen (Tylenol) 650 mg PRN Q6HRS PRN PO MILD PAIN / TEMP > 100.3'F 08/27/20 19:45 09/20/20 19:39 Quetiapine Fumarate (SEROquel) 50 mg QHS PO 09/17/20 21:00 09/21/20 20:04 Clindamycin HCl (Cleocin) 300 mg BID PO 09/18/20 21:00 09/24/20 09:00 09/21/20 20:03 Acetaminophen/ Hydrocodone Bitart (Lortab 7.5/325) 1 tab PRN Q4HRS PRN PO PAIN 09/18/20 20:00 09/19/20 05:40 Lactobacillus Rhamnosus (Culturelle) 1 cap BID PO 09/20/20 21:00 09/21/20 20:03 Current Medications Medications (Trade) Dose Ordered Sig/Vicente Route PRN Reason Start Time Stop Time Status Last Admin Dose Admin Lactobacillus Rhamnosus (Culturelle) 1 cap BID PO 09/20/20 21:00 09/21/20 20:03 I have reviewed the current psychotropics carefully including drug interactions. Risk benefit ratio favors no change other than as noted in my dictated progress note. Diagnosis: Problems: (1) Bipolar disorder, unspecified (2) Anxiety disorder, unspecified (3) Impulse control disorder, unspecified OBDULIA MOLINA MD Sep 21, 2020 20:48
[2020-09-22 05:52] VITALS: BP 129/79
--- NOTE | 2020-09-22 08:20 | PDOC ---
Exam Note: Jassi Note: This note is a late entry for 09/21/2020 covers elements not covered in my initial note. Subjective: The patient was seen on telehealth rounds in the evening of 09/21/2020 with Vel HOLLINGSWORTH, reviewed the chart. He slept 6-1/4 fours previous night. The patient was somewhat paranoid previous evening believed people were planning to kill him. He has not expressed any of that today. Review of Systems: He is not complaining of discomfort of his mouth and infected tooth. No CV, , pulmonary, eye system symptoms on review. Mental Status Exam: The patient is reasonably oriented. Speech is coherent, has some latency. Abstraction is fair. Computation is impaired. Language function is intact. Mood and affect is somewhat withdrawn. Some of this was observation per nursing staff. No suicidal or homicidal ideation. Laboratory Data: Reviewed. Impression: Bipolar disorder unspecified. Anxiety disorder unspecified. Impulse control disorder. Plan: No change from initial note. Assessment: Vital Signs/I&O: Vital Signs Date Time Temp Pulse Resp B/P (MAP) Pulse Ox O2 Delivery O2 Flow Rate FiO2 09/22/20 05:52 97.2 86 16 129/79 (96) 93 09/19/20 15:00 Room Air I & O 09/21/20 09/21/20 09/22/20 15:00 23:00 07:00 Intake Total 720 ml 600 ml Balance 720 ml 600 ml Current Medications: Meds: Current Medications Medications (Trade) Dose Ordered Sig/Vicente Route PRN Reason Start Time Stop Time Status Last Admin Dose Admin Acetaminophen (Tylenol) 650 mg PRN Q6HRS PRN PO MILD PAIN / TEMP > 100.3'F 06/05/20 16:45 08/20/20 15:27 DC 08/20/20 08:58 Multi-Ingredient Ointment (Analgesic [place]) 1 martina PRN QID PRN TP MUSCLE PAIN 06/05/20 16:45 Cancel Al Hydroxide/Mg Hydroxide (Mylanta Plus Xs) 15 ml PRN AFTMEALHC PRN PO DYSPEPSIA 06/05/20 16:45 06/06/20 17:08 DC Magnesium Hydroxide (Milk Of Magnesia) 2,400 mg PRN QHS PRN PO CONSTIPATION 06/05/20 16:45 09/20/20 14:41 Acetaminophen (Tylenol) 1,000 mg BID PO 06/05/20 21:00 06/25/20 12:00 DC 06/23/20 09:08 Amlodipine Besylate (Norvasc) 5 mg DAILY PO 06/06/20 09:00 09/21/20 08:54 Cetirizine HCl (ZyrTEC) 10 mg PRN DAILY PRN PO ALLERGIES 06/05/20 18:15 07/29/20 12:21 Cyclobenzaprine HCl (Flexeril) 10 mg PRN QHS PRN PO MUSCLE SPASMS 06/05/20 18:15 09/20/20 19:39 Diclofenac Sodium (Voltaren) 1 martina PRN Q6HRS PRN TP MUSCLE SKELETAL PAIN 06/05/20 18:15 09/17/20 20:41 Divalproex Sodium (Depakote Er) 1,000 mg QHS PO 06/05/20 21:00 06/07/20 11:57 DC 06/06/20 20:47 Al Hydroxide/Mg Hydroxide (Mylanta Plus Xs) 15 ml PRN AFTMEALHC PRN PO DYSPEPSIA 06/05/20 18:15 Metoprolol Succinate (Toprol Xl) 25 mg DAILY PO 06/06/20 09:00 09/21/20 08:55 Trazodone HCl (Desyrel) 50 mg QHS PO 06/05/20 21:00 09/21/20 20:03 Calcium Carbonate/ Glycine (Tums) 500 mg TIDAFTMEAL PO 06/05/20 18:45 09/21/20 17:41 Magnesium Hydroxide (Milk Of Magnesia) 2,400 mg PRN QHS PRN PO CONSTIPATION 06/05/20 18:45 06/06/20 17:08 DC Multi-Ingredient Ointment (Analgesic [place]) 1 martina PRN QID PRN TP MUSCLE PAIN 06/05/20 18:45 06/06/20 17:09 DC Divalproex Sodium (Depakote Er) 1,250 mg QHS PO 06/07/20 21:00 06/15/20 19:47 DC 06/14/20 20:16 Vitamin D (Vitamin D3) 50,000 unit WEEKLY PO 06/07/20 17:15 09/20/20 08:11 Atorvastatin Calcium (Lipitor) 10 mg QHS PO 06/07/20 21:00 09/21/20 20:03 Quetiapine Fumarate (SEROquel) 25 mg QHS PO 06/09/20 21:00 09/17/20 17:52 DC 09/16/20 19:49 Divalproex Sodium (Depakote Er) 250 mg QHS PO 06/15/20 21:00 06/21/20 17:39 DC 06/20/20 20:20 Divalproex Sodium (Depakote Er) 1,000 mg QHS PO 06/15/20 21:00 06/21/20 17:39 DC 06/20/20 20:21 Gabapentin (Neurontin) 300 mg BID PO 06/21/20 21:00 09/21/20 20:03 Acetaminophen/ Hydrocodone Bitart (Lortab 5/325) 1 tab PRN Q6HRS PRN PO MOD-SEV PAIN 08/17/20 17:15 09/18/20 19:59 DC 09/17/20 20:42 Acetaminophen (Tylenol) 1,300 mg PRN Q8HRS PRN PO MILD PAIN / TEMP > 100.3'F 08/20/20 15:30 08/27/20 19:41 DC Acetaminophen (Tylenol) 650 mg PRN Q6HRS PRN PO MILD PAIN / TEMP > 100.3'F 08/27/20 19:45 09/20/20 19:39 Quetiapine Fumarate (SEROquel) 50 mg QHS PO 09/17/20 21:00 09/21/20 20:04 Clindamycin HCl (Cleocin) 300 mg BID PO 09/18/20 21:00 09/24/20 09:00 09/21/20 20:03 Acetaminophen/ Hydrocodone Bitart (Lortab 7.5/325) 1 tab PRN Q4HRS PRN PO PAIN 09/18/20 20:00 09/19/20 05:40 Lactobacillus Rhamnosus (Culturelle) 1 cap BID PO 09/20/20 21:00 09/21/20 20:03 I have reviewed the current psychotropics carefully including drug interactions. Risk benefit ratio favors no change other than as noted in my dictated progress note. Diagnosis: Problems: (1) Bipolar disorder, unspecified (2) Impulse control disorder, unspecified (3) Anxiety disorder, unspecified JESSE,MAN M MD Sep 22, 2020 08:20
[2020-09-22] MEDS: CLINDAMYCIN HCL 150 MG CAPSULE PO SCH ×2 (08:45→20:08)
[2020-09-22] MEDS: amLODIPine BESYLATE 10 MG TABLET PO SCH (08:45)
[2020-09-22] MEDS: METOPROLOL SUCC 24HR ER 25 MG TAB.ER.24H. PO SCH (08:46)
[2020-09-22] MEDS: GABAPENTIN 300 MG CAPSULE. PO SCH ×2 (08:46→20:08)
[2020-09-22] MEDS: LACTOBACILLUS RHAMNOSUS GG 1 CAPSULE. PO SCH ×2 (08:46→20:08)
[2020-09-22] MEDS: CALCIUM CARBONATE 500 MG TAB.CHEW PO SCH ×3 (08:47→17:36)
[2020-09-22 10:25] LABS: BASO # 0.1 x10^3/uL (0.0-0.2); BASO % 1 % (0-3); EOS # 0.3 x10^3/uL (0.0-0.7); EOS % 5 % (0-3); HEMATOCRIT 41.9 % (39.0-53.0); LYMPH # 0.9 x10^3/uL (1.0-4.8); LYMPH % 14 % (24-48); MEAN CORPUSCULAR HEMOGLOBIN 31 pg (25-35); MEAN CORPUSCULAR HGB CONC 34 g/dL (31-37); MEAN CORPUSCULAR VOLUME 92 fL (79-100); MONO # 0.9 x10^3/uL (0.0-1.1); MONO % 15 % (0-9); NEUT # 4.2 x10^3uL (1.8-7.7); NEUT % 66 % (31-73); PLATELET COUNT 316 x10^3/uL (140-400); RED BLOOD COUNT 4.56 x10^6/uL (4.30-5.70); RED CELL DISTRIBUTION WIDTH 13.5 % (11.5-14.5); WHITE BLOOD COUNT 6.4 x10^3/uL (4.0-11.0)
[2020-09-22 11:00] LABS: ALBUMIN 3.3 g/dL (3.4-5.0); ALBUMIN/GLOBULIN RATIO 0.8 (1.0-1.7); CALCIUM 8.9 mg/dL (8.5-10.1); CREATININE 1.1 mg/dL (0.7-1.3); POTASSIUM 4.2 mmol/L (3.5-5.1); TOTAL BILIRUBIN 0.3 mg/dL (0.2-1.0); TOTAL PROTEIN 7.2 g/dL (6.4-8.2)
[2020-09-22 16:25] VITALS: BP 144/79
[2020-09-22] MEDS: HYDROcodone/APAP 7.5/325MG 1 TAB TABLET PO PRN (20:07)
[2020-09-22] MEDS: DICLOFENAC SODIUM 1% TOPICAL GEL 100GM TUBE. TP PRN (20:07)
[2020-09-22] MEDS: CYCLOBENZAPRINE 10 MG TABLET. PO PRN (20:07)
[2020-09-22] MEDS: traZODone 50 MG TABLET. PO SCH (20:08)
[2020-09-22] MEDS: ATORVASTATIN CALCIUM 10 MG TABLET. PO SCH (20:08)
[2020-09-22] MEDS: QUEtiapine 50 MG TABLET. PO SCH (20:08)
--- NOTE | 2020-09-22 20:53 | PDOC ---
Exam Note: Jassi Note: Please also refer to the separate dictated note~for this date of service dictated separately.~Patient seen individually. Discussed the patient with Nursing staff reviewed the chart.~Reviewed interim history and current functioning. Reviewed vital signs,~Labs/ Radiology~and current medications noted below. Continue current treatment with the changes noted in the dictated addendum note Assessment: Vital Signs/I&O: Vital Signs Date Time Temp Pulse Resp B/P (MAP) Pulse Ox O2 Delivery O2 Flow Rate FiO2 09/22/20 20:07 92 09/22/20 16:25 98.1 95 20 144/79 (100) 09/19/20 15:00 Room Air I & O 09/21/20 09/21/20 09/22/20 15:00 23:00 07:00 Intake Total 720 ml 600 ml Balance 720 ml 600 ml Labs: Laboratory Tests Test 09/22/20 10:17 White Blood Count 6.4 x10^3/uL (4.0-11.0) Red Blood Count 4.56 x10^6/uL (4.30-5.70) Hemoglobin 14.0 g/dL (13.0-17.5) Hematocrit 41.9 % (39.0-53.0) Mean Corpuscular Volume 92 fL (79-100) Mean Corpuscular Hemoglobin 31 pg (25-35) Mean Corpuscular Hemoglobin Concent 34 g/dL (31-37) Red Cell Distribution Width 13.5 % (11.5-14.5) Platelet Count 316 x10^3/uL (140-400) Neutrophils (%) (Auto) 66 % (31-73) Lymphocytes (%) (Auto) 14 % (24-48) L Monocytes (%) (Auto) 15 % (0-9) H Eosinophils (%) (Auto) 5 % (0-3) H Basophils (%) (Auto) 1 % (0-3) Neutrophils # (Auto) 4.2 x10^3uL (1.8-7.7) Lymphocytes # (Auto) 0.9 x10^3/uL (1.0-4.8) L Monocytes # (Auto) 0.9 x10^3/uL (0.0-1.1) Eosinophils # (Auto) 0.3 x10^3/uL (0.0-0.7) Basophils # (Auto) 0.1 x10^3/uL (0.0-0.2) Sodium Level 143 mmol/L (136-145) Potassium Level 4.2 mmol/L (3.5-5.1) Chloride Level 107 mmol/L (98-107) Carbon Dioxide Level 32 mmol/L (21-32) Anion Gap 4 (6-14) L Blood Urea Nitrogen 21 mg/dL (8-26) Creatinine 1.1 mg/dL (0.7-1.3) Estimated GFR (Cockcroft-Gault) 66.0 BUN/Creatinine Ratio 19 (6-20) Glucose Level 93 mg/dL (70-99) Calcium Level 8.9 mg/dL (8.5-10.1) Total Bilirubin 0.3 mg/dL (0.2-1.0) Aspartate Amino Transferase (AST) 42 U/L (15-37) H Alanine Aminotransferase (ALT) 79 U/L (16-63) H Alkaline Phosphatase 186 U/L (46-116) H Total Protein 7.2 g/dL (6.4-8.2) Albumin 3.3 g/dL (3.4-5.0) L Albumin/Globulin Ratio 0.8 (1.0-1.7) L Current Medications: Meds: Laboratory Tests Test 09/22/20 10:17 White Blood Count 6.4 x10^3/uL Red Blood Count 4.56 x10^6/uL Hemoglobin 14.0 g/dL Hematocrit 41.9 % Mean Corpuscular Volume 92 fL Mean Corpuscular Hemoglobin 31 pg Mean Corpuscular Hemoglobin Concent 34 g/dL Red Cell Distribution Width 13.5 % Platelet Count 316 x10^3/uL Neutrophils (%) (Auto) 66 % Lymphocytes (%) (Auto) 14 % Monocytes (%) (Auto) 15 % Eosinophils (%) (Auto) 5 % Basophils (%) (Auto) 1 % Neutrophils # (Auto) 4.2 x10^3uL Lymphocytes # (Auto) 0.9 x10^3/uL Monocytes # (Auto) 0.9 x10^3/uL Eosinophils # (Auto) 0.3 x10^3/uL Basophils # (Auto) 0.1 x10^3/uL Sodium Level 143 mmol/L Potassium Level 4.2 mmol/L Chloride Level 107 mmol/L Carbon Dioxide Level 32 mmol/L Anion Gap 4 Blood Urea Nitrogen 21 mg/dL Creatinine 1.1 mg/dL Estimated GFR (Cockcroft-Gault) 66.0 BUN/Creatinine Ratio 19 Glucose Level 93 mg/dL Calcium Level 8.9 mg/dL Total Bilirubin 0.3 mg/dL Aspartate Amino Transf (AST/SGOT) 42 U/L Alanine Aminotransferase (ALT/SGPT) 79 U/L Alkaline Phosphatase 186 U/L Total Protein 7.2 g/dL Albumin 3.3 g/dL Albumin/Globulin Ratio 0.8 Current Medications Medications (Trade) Dose Ordered Sig/Vicente Route PRN Reason Start Time Stop Time Status Last Admin Dose Admin Acetaminophen (Tylenol) 650 mg PRN Q6HRS PRN PO MILD PAIN / TEMP > 100.3'F 06/05/20 16:45 08/20/20 15:27 DC 08/20/20 08:58 Multi-Ingredient Ointment (Analgesic [place]) 1 martina PRN QID PRN TP MUSCLE PAIN 06/05/20 16:45 Cancel Al Hydroxide/Mg Hydroxide (Mylanta Plus Xs) 15 ml PRN AFTMEALHC PRN PO DYSPEPSIA 06/05/20 16:45 06/06/20 17:08 DC Magnesium Hydroxide (Milk Of Magnesia) 2,400 mg PRN QHS PRN PO CONSTIPATION 06/05/20 16:45 09/20/20 14:41 Acetaminophen (Tylenol) 1,000 mg BID PO 06/05/20 21:00 06/25/20 12:00 DC 06/23/20 09:08 Amlodipine Besylate (Norvasc) 5 mg DAILY PO 06/06/20 09:00 09/22/20 08:45 Cetirizine HCl (ZyrTEC) 10 mg PRN DAILY PRN PO ALLERGIES 06/05/20 18:15 07/29/20 12:21 Cyclobenzaprine HCl (Flexeril) 10 mg PRN QHS PRN PO MUSCLE SPASMS 06/05/20 18:15 09/22/20 20:07 Diclofenac Sodium (Voltaren) 1 martina PRN Q6HRS PRN TP MUSCLE SKELETAL PAIN 06/05/20 18:15 09/22/20 20:07 Divalproex Sodium (Depakote Er) 1,000 mg QHS PO 06/05/20 21:00 06/07/20 11:57 DC 06/06/20 20:47 Al Hydroxide/Mg Hydroxide (Mylanta Plus Xs) 15 ml PRN AFTMEALHC PRN PO DYSPEPSIA 06/05/20 18:15 Metoprolol Succinate (Toprol Xl) 25 mg DAILY PO 06/06/20 09:00 09/22/20 08:46 Trazodone HCl (Desyrel) 50 mg QHS PO 06/05/20 21:00 09/22/20 20:08 Calcium Carbonate/ Glycine (Tums) 500 mg TIDAFTMEAL PO 06/05/20 18:45 09/22/20 17:36 Magnesium Hydroxide (Milk Of Magnesia) 2,400 mg PRN QHS PRN PO CONSTIPATION 06/05/20 18:45 06/06/20 17:08 DC Multi-Ingredient Ointment (Analgesic [place]) 1 martina PRN QID PRN TP MUSCLE PAIN 06/05/20 18:45 06/06/20 17:09 DC Divalproex Sodium (Depakote Er) 1,250 mg QHS PO 06/07/20 21:00 06/15/20 19:47 DC 06/14/20 20:16 Vitamin D (Vitamin D3) 50,000 unit WEEKLY PO 06/07/20 17:15 09/20/20 08:11 Atorvastatin Calcium (Lipitor) 10 mg QHS PO 06/07/20 21:00 09/22/20 20:08 Quetiapine Fumarate (SEROquel) 25 mg QHS PO 06/09/20 21:00 09/17/20 17:52 DC 09/16/20 19:49 Divalproex Sodium (Depakote Er) 250 mg QHS PO 06/15/20 21:00 06/21/20 17:39 DC 06/20/20 20:20 Divalproex Sodium (Depakote Er) 1,000 mg QHS PO 06/15/20 21:00 06/21/20 17:39 DC 06/20/20 20:21 Gabapentin (Neurontin) 300 mg BID PO 06/21/20 21:00 09/22/20 20:08 Acetaminophen/ Hydrocodone Bitart (Lortab 5/325) 1 tab PRN Q6HRS PRN PO MOD-SEV PAIN 08/17/20 17:15 09/18/20 19:59 DC 09/17/20 20:42 Acetaminophen (Tylenol) 1,300 mg PRN Q8HRS PRN PO MILD PAIN / TEMP > 100.3'F 08/20/20 15:30 08/27/20 19:41 DC Acetaminophen (Tylenol) 650 mg PRN Q6HRS PRN PO MILD PAIN / TEMP > 100.3'F 08/27/20 19:45 09/20/20 19:39 Quetiapine Fumarate (SEROquel) 50 mg QHS PO 09/17/20 21:00 09/22/20 20:08 Clindamycin HCl (Cleocin) 300 mg BID PO 09/18/20 21:00 09/24/20 09:00 09/22/20 20:08 Acetaminophen/ Hydrocodone Bitart (Lortab 7.5/325) 1 tab PRN Q4HRS PRN PO PAIN 09/18/20 20:00 09/22/20 20:07 Lactobacillus Rhamnosus (Culturelle) 1 cap BID PO 09/20/20 21:00 09/22/20 20:08 I have reviewed the current psychotropics carefully including drug interactions. Risk benefit ratio favors no change other than as noted in my dictated progress note. Diagnosis: Problems: (1) Bipolar disorder, unspecified (2) Anxiety disorder, unspecified (3) Impulse control disorder, unspecified OBDULIA MOLINA MD Sep 22, 2020 20:53
[2020-09-23 05:22] VITALS: BP 131/82
--- NOTE | 2020-09-23 07:51 | PDOC ---
Exam Note: Jassi Note: This note is a late entry for 09/22/2020 covers elements not covered in my initial note. Subjective: The patient was seen face to face in the evening of 09/22/2020 with Vel HOLLINGSWORTH, discussed and reviewed the chart. He slept 6-3/4 fours previous night. As I met with him his tooth pain was better. He is still anxious, repeatedly questioning me about discharge plans. Social service staff is diligently working on this. Review of Systems: No CV, , pulmonary, eye system symptoms on review. Mental Status Exam: The patient is reasonably oriented. Speech is coherent, has some latency. Abstraction is fair. Computation is impaired. Language function is intact. Mood and affect is withdrawn. Laboratory Data: Reviewed. Impression: Bipolar disorder unspecified. Anxiety disorder unspecified. Impulse control disorder. Plan: No change from initial note. Assessment: Vital Signs/I&O: Vital Signs Date Time Temp Pulse Resp B/P (MAP) Pulse Ox O2 Delivery O2 Flow Rate FiO2 09/23/20 05:22 97.4 82 18 131/82 (98) 94 09/19/20 15:00 Room Air I & O 09/22/20 09/22/20 09/23/20 15:00 23:00 07:00 Intake Total 480 ml 600 ml Balance 480 ml 600 ml Labs: Laboratory Tests Test 09/22/20 10:17 White Blood Count 6.4 x10^3/uL (4.0-11.0) Red Blood Count 4.56 x10^6/uL (4.30-5.70) Hemoglobin 14.0 g/dL (13.0-17.5) Hematocrit 41.9 % (39.0-53.0) Mean Corpuscular Volume 92 fL (79-100) Mean Corpuscular Hemoglobin 31 pg (25-35) Mean Corpuscular Hemoglobin Concent 34 g/dL (31-37) Red Cell Distribution Width 13.5 % (11.5-14.5) Platelet Count 316 x10^3/uL (140-400) Neutrophils (%) (Auto) 66 % (31-73) Lymphocytes (%) (Auto) 14 % (24-48) L Monocytes (%) (Auto) 15 % (0-9) H Eosinophils (%) (Auto) 5 % (0-3) H Basophils (%) (Auto) 1 % (0-3) Neutrophils # (Auto) 4.2 x10^3uL (1.8-7.7) Lymphocytes # (Auto) 0.9 x10^3/uL (1.0-4.8) L Monocytes # (Auto) 0.9 x10^3/uL (0.0-1.1) Eosinophils # (Auto) 0.3 x10^3/uL (0.0-0.7) Basophils # (Auto) 0.1 x10^3/uL (0.0-0.2) Sodium Level 143 mmol/L (136-145) Potassium Level 4.2 mmol/L (3.5-5.1) Chloride Level 107 mmol/L (98-107) Carbon Dioxide Level 32 mmol/L (21-32) Anion Gap 4 (6-14) L Blood Urea Nitrogen 21 mg/dL (8-26) Creatinine 1.1 mg/dL (0.7-1.3) Estimated GFR (Cockcroft-Gault) 66.0 BUN/Creatinine Ratio 19 (6-20) Glucose Level 93 mg/dL (70-99) Calcium Level 8.9 mg/dL (8.5-10.1) Total Bilirubin 0.3 mg/dL (0.2-1.0) Aspartate Amino Transferase (AST) 42 U/L (15-37) H Alanine Aminotransferase (ALT) 79 U/L (16-63) H Alkaline Phosphatase 186 U/L (46-116) H Total Protein 7.2 g/dL (6.4-8.2) Albumin 3.3 g/dL (3.4-5.0) L Albumin/Globulin Ratio 0.8 (1.0-1.7) L Current Medications: Meds: Laboratory Tests Test 09/22/20 10:17 White Blood Count 6.4 x10^3/uL Red Blood Count 4.56 x10^6/uL Hemoglobin 14.0 g/dL Hematocrit 41.9 % Mean Corpuscular Volume 92 fL Mean Corpuscular Hemoglobin 31 pg Mean Corpuscular Hemoglobin Concent 34 g/dL Red Cell Distribution Width 13.5 % Platelet Count 316 x10^3/uL Neutrophils (%) (Auto) 66 % Lymphocytes (%) (Auto) 14 % Monocytes (%) (Auto) 15 % Eosinophils (%) (Auto) 5 % Basophils (%) (Auto) 1 % Neutrophils # (Auto) 4.2 x10^3uL Lymphocytes # (Auto) 0.9 x10^3/uL Monocytes # (Auto) 0.9 x10^3/uL Eosinophils # (Auto) 0.3 x10^3/uL Basophils # (Auto) 0.1 x10^3/uL Sodium Level 143 mmol/L Potassium Level 4.2 mmol/L Chloride Level 107 mmol/L Carbon Dioxide Level 32 mmol/L Anion Gap 4 Blood Urea Nitrogen 21 mg/dL Creatinine 1.1 mg/dL Estimated GFR (Cockcroft-Gault) 66.0 BUN/Creatinine Ratio 19 Glucose Level 93 mg/dL Calcium Level 8.9 mg/dL Total Bilirubin 0.3 mg/dL Aspartate Amino Transf (AST/SGOT) 42 U/L Alanine Aminotransferase (ALT/SGPT) 79 U/L Alkaline Phosphatase 186 U/L Total Protein 7.2 g/dL Albumin 3.3 g/dL Albumin/Globulin Ratio 0.8 Current Medications Medications (Trade) Dose Ordered Sig/Vicente Route PRN Reason Start Time Stop Time Status Last Admin Dose Admin Acetaminophen (Tylenol) 650 mg PRN Q6HRS PRN PO MILD PAIN / TEMP > 100.3'F 06/05/20 16:45 08/20/20 15:27 DC 08/20/20 08:58 Multi-Ingredient Ointment (Analgesic [place]) 1 martina PRN QID PRN TP MUSCLE PAIN 06/05/20 16:45 Cancel Al Hydroxide/Mg Hydroxide (Mylanta Plus Xs) 15 ml PRN AFTMEALHC PRN PO DYSPEPSIA 06/05/20 16:45 06/06/20 17:08 DC Magnesium Hydroxide (Milk Of Magnesia) 2,400 mg PRN QHS PRN PO CONSTIPATION 06/05/20 16:45 09/20/20 14:41 Acetaminophen (Tylenol) 1,000 mg BID PO 06/05/20 21:00 06/25/20 12:00 DC 06/23/20 09:08 Amlodipine Besylate (Norvasc) 5 mg DAILY PO 06/06/20 09:00 09/22/20 08:45 Cetirizine HCl (ZyrTEC) 10 mg PRN DAILY PRN PO ALLERGIES 06/05/20 18:15 07/29/20 12:21 Cyclobenzaprine HCl (Flexeril) 10 mg PRN QHS PRN PO MUSCLE SPASMS 06/05/20 18:15 09/22/20 20:07 Diclofenac Sodium (Voltaren) 1 martina PRN Q6HRS PRN TP MUSCLE SKELETAL PAIN 06/05/20 18:15 09/22/20 20:07 Divalproex Sodium (Depakote Er) 1,000 mg QHS PO 06/05/20 21:00 06/07/20 11:57 DC 06/06/20 20:47 Al Hydroxide/Mg Hydroxide (Mylanta Plus Xs) 15 ml PRN AFTMEALHC PRN PO DYSPEPSIA 06/05/20 18:15 Metoprolol Succinate (Toprol Xl) 25 mg DAILY PO 06/06/20 09:00 09/22/20 08:46 Trazodone HCl (Desyrel) 50 mg QHS PO 06/05/20 21:00 09/22/20 20:08 Calcium Carbonate/ Glycine (Tums) 500 mg TIDAFTMEAL PO 06/05/20 18:45 09/22/20 17:36 Magnesium Hydroxide (Milk Of Magnesia) 2,400 mg PRN QHS PRN PO CONSTIPATION 06/05/20 18:45 06/06/20 17:08 DC Multi-Ingredient Ointment (Analgesic [place]) 1 martina PRN QID PRN TP MUSCLE PAIN 06/05/20 18:45 06/06/20 17:09 DC Divalproex Sodium (Depakote Er) 1,250 mg QHS PO 06/07/20 21:00 06/15/20 19:47 DC 06/14/20 20:16 Vitamin D (Vitamin D3) 50,000 unit WEEKLY PO 06/07/20 17:15 09/20/20 08:11 Atorvastatin Calcium (Lipitor) 10 mg QHS PO 06/07/20 21:00 09/22/20 20:08 Quetiapine Fumarate (SEROquel) 25 mg QHS PO 06/09/20 21:00 09/17/20 17:52 DC 09/16/20 19:49 Divalproex Sodium (Depakote Er) 250 mg QHS PO 06/15/20 21:00 06/21/20 17:39 DC 06/20/20 20:20 Divalproex Sodium (Depakote Er) 1,000 mg QHS PO 06/15/20 21:00 06/21/20 17:39 DC 06/20/20 20:21 Gabapentin (Neurontin) 300 mg BID PO 06/21/20 21:00 09/22/20 20:08 Acetaminophen/ Hydrocodone Bitart (Lortab 5/325) 1 tab PRN Q6HRS PRN PO MOD-SEV PAIN 08/17/20 17:15 09/18/20 19:59 DC 09/17/20 20:42 Acetaminophen (Tylenol) 1,300 mg PRN Q8HRS PRN PO MILD PAIN / TEMP > 100.3'F 08/20/20 15:30 08/27/20 19:41 DC Acetaminophen (Tylenol) 650 mg PRN Q6HRS PRN PO MILD PAIN / TEMP > 100.3'F 08/27/20 19:45 09/20/20 19:39 Quetiapine Fumarate (SEROquel) 50 mg QHS PO 09/17/20 21:00 09/22/20 20:08 Clindamycin HCl (Cleocin) 300 mg BID PO 09/18/20 21:00 09/24/20 09:00 09/22/20 20:08 Acetaminophen/ Hydrocodone Bitart (Lortab 7.5/325) 1 tab PRN Q4HRS PRN PO PAIN 09/18/20 20:00 09/22/20 20:07 Lactobacillus Rhamnosus (Culturelle) 1 cap BID PO 09/20/20 21:00 09/22/20 20:08 I have reviewed the current psychotropics carefully including drug interactions. Risk benefit ratio favors no change other than as noted in my dictated progress note. Diagnosis: Problems: (1) Bipolar disorder, unspecified (2) Impulse control disorder, unspecified (3) Anxiety disorder, unspecified OBDULIA MOLINA MD Sep 23, 2020 07:51
[2020-09-23] MEDS: LACTOBACILLUS RHAMNOSUS GG 1 CAPSULE. PO SCH ×2 (09:53→20:04)
[2020-09-23] MEDS: CLINDAMYCIN HCL 150 MG CAPSULE PO SCH ×2 (09:53→20:05)
[2020-09-23] MEDS: METOPROLOL SUCC 24HR ER 25 MG TAB.ER.24H. PO SCH (09:53)
[2020-09-23] MEDS: amLODIPine BESYLATE 10 MG TABLET PO SCH (09:54)
[2020-09-23] MEDS: GABAPENTIN 300 MG CAPSULE. PO SCH ×2 (09:54→20:08)
[2020-09-23] MEDS: CALCIUM CARBONATE 500 MG TAB.CHEW PO SCH ×3 (09:54→19:20)
[2020-09-23 15:16] VITALS: BP 133/76
[2020-09-23] MEDS: QUEtiapine 50 MG TABLET. PO SCH (20:05)
[2020-09-23] MEDS: traZODone 50 MG TABLET. PO SCH (20:05)
[2020-09-23] MEDS: ATORVASTATIN CALCIUM 10 MG TABLET. PO SCH (20:05)
--- NOTE | 2020-09-23 20:56 | PDOC ---
Exam Note: Jassi Note: Please also refer to the separate dictated note~for this date of service dictated separately.~Patient seen individually. Discussed the patient with Nursing staff reviewed the chart.~Reviewed interim history and current functioning. Reviewed vital signs,~Labs/ Radiology~and current medications noted below. Continue current treatment with the changes noted in the dictated addendum note Assessment: Vital Signs/I&O: Vital Signs Date Time Temp Pulse Resp B/P (MAP) Pulse Ox O2 Delivery O2 Flow Rate FiO2 09/23/20 15:16 97.6 100 20 133/76 (95) 94 Room Air I & O 09/22/20 09/22/20 09/23/20 14:59 22:59 06:59 Intake Total 480 ml 600 ml Balance 480 ml 600 ml Current Medications: Meds: Current Medications Medications (Trade) Dose Ordered Sig/Vicente Route PRN Reason Start Time Stop Time Status Last Admin Dose Admin Acetaminophen (Tylenol) 650 mg PRN Q6HRS PRN PO MILD PAIN / TEMP > 100.3'F 06/05/20 16:45 08/20/20 15:27 DC 08/20/20 08:58 Multi-Ingredient Ointment (Analgesic [place]) 1 martina PRN QID PRN TP MUSCLE PAIN 06/05/20 16:45 Cancel Al Hydroxide/Mg Hydroxide (Mylanta Plus Xs) 15 ml PRN AFTMEALHC PRN PO DYSPEPSIA 06/05/20 16:45 06/06/20 17:08 DC Magnesium Hydroxide (Milk Of Magnesia) 2,400 mg PRN QHS PRN PO CONSTIPATION 06/05/20 16:45 09/20/20 14:41 Acetaminophen (Tylenol) 1,000 mg BID PO 06/05/20 21:00 06/25/20 12:00 DC 06/23/20 09:08 Amlodipine Besylate (Norvasc) 5 mg DAILY PO 06/06/20 09:00 09/23/20 09:54 Cetirizine HCl (ZyrTEC) 10 mg PRN DAILY PRN PO ALLERGIES 06/05/20 18:15 07/29/20 12:21 Cyclobenzaprine HCl (Flexeril) 10 mg PRN QHS PRN PO MUSCLE SPASMS 06/05/20 18:15 09/22/20 20:07 Diclofenac Sodium (Voltaren) 1 martina PRN Q6HRS PRN TP MUSCLE SKELETAL PAIN 06/05/20 18:15 09/22/20 20:07 Divalproex Sodium (Depakote Er) 1,000 mg QHS PO 06/05/20 21:00 06/07/20 11:57 DC 06/06/20 20:47 Al Hydroxide/Mg Hydroxide (Mylanta Plus Xs) 15 ml PRN AFTMEALHC PRN PO DYSPEPSIA 06/05/20 18:15 Metoprolol Succinate (Toprol Xl) 25 mg DAILY PO 06/06/20 09:00 09/23/20 09:53 Trazodone HCl (Desyrel) 50 mg QHS PO 06/05/20 21:00 09/23/20 20:05 Calcium Carbonate/ Glycine (Tums) 500 mg TIDAFTMEAL PO 06/05/20 18:45 09/23/20 19:20 Magnesium Hydroxide (Milk Of Magnesia) 2,400 mg PRN QHS PRN PO CONSTIPATION 06/05/20 18:45 06/06/20 17:08 DC Multi-Ingredient Ointment (Analgesic [place]) 1 martina PRN QID PRN TP MUSCLE PAIN 06/05/20 18:45 06/06/20 17:09 DC Divalproex Sodium (Depakote Er) 1,250 mg QHS PO 06/07/20 21:00 06/15/20 19:47 DC 06/14/20 20:16 Vitamin D (Vitamin D3) 50,000 unit WEEKLY PO 06/07/20 17:15 09/20/20 08:11 Atorvastatin Calcium (Lipitor) 10 mg QHS PO 06/07/20 21:00 09/23/20 20:05 Quetiapine Fumarate (SEROquel) 25 mg QHS PO 06/09/20 21:00 09/17/20 17:52 DC 09/16/20 19:49 Divalproex Sodium (Depakote Er) 250 mg QHS PO 06/15/20 21:00 06/21/20 17:39 DC 06/20/20 20:20 Divalproex Sodium (Depakote Er) 1,000 mg QHS PO 06/15/20 21:00 06/21/20 17:39 DC 06/20/20 20:21 Gabapentin (Neurontin) 300 mg BID PO 06/21/20 21:00 09/23/20 20:08 Acetaminophen/ Hydrocodone Bitart (Lortab 5/325) 1 tab PRN Q6HRS PRN PO MOD-SEV PAIN 08/17/20 17:15 09/18/20 19:59 DC 09/17/20 20:42 Acetaminophen (Tylenol) 1,300 mg PRN Q8HRS PRN PO MILD PAIN / TEMP > 100.3'F 08/20/20 15:30 08/27/20 19:41 DC Acetaminophen (Tylenol) 650 mg PRN Q6HRS PRN PO MILD PAIN / TEMP > 100.3'F 08/27/20 19:45 09/20/20 19:39 Quetiapine Fumarate (SEROquel) 50 mg QHS PO 09/17/20 21:00 09/23/20 20:05 Clindamycin HCl (Cleocin) 300 mg BID PO 09/18/20 21:00 09/24/20 09:00 09/23/20 20:05 Acetaminophen/ Hydrocodone Bitart (Lortab 7.5/325) 1 tab PRN Q4HRS PRN PO PAIN 09/18/20 20:00 09/22/20 20:07 Lactobacillus Rhamnosus (Culturelle) 1 cap BID PO 09/20/20 21:00 09/23/20 20:04 I have reviewed the current psychotropics carefully including drug interactions. Risk benefit ratio favors no change other than as noted in my dictated progress note. Diagnosis: Problems: (1) Bipolar disorder, unspecified (2) Impulse control disorder, unspecified (3) Anxiety disorder, unspecified OBDULIA MOLINA MD Sep 23, 2020 20:56
[2020-09-24 05:39] VITALS: BP 123/74
[2020-09-24] MEDS: CLINDAMYCIN HCL 150 MG CAPSULE PO SCH (08:04)
[2020-09-24] MEDS: METOPROLOL SUCC 24HR ER 25 MG TAB.ER.24H. PO SCH (08:04)
[2020-09-24] MEDS: LACTOBACILLUS RHAMNOSUS GG 1 CAPSULE. PO SCH ×2 (08:04→19:41)
[2020-09-24] MEDS: CALCIUM CARBONATE 500 MG TAB.CHEW PO SCH ×3 (08:04→17:43)
[2020-09-24] MEDS: amLODIPine BESYLATE 10 MG TABLET PO SCH (08:08)
[2020-09-24] MEDS: GABAPENTIN 300 MG CAPSULE. PO SCH ×2 (08:39→19:44)
[2020-09-24 16:09] VITALS: BP 149/89
[2020-09-24] MEDS: QUEtiapine 50 MG TABLET. PO SCH (19:41)
[2020-09-24] MEDS: ATORVASTATIN CALCIUM 10 MG TABLET. PO SCH (19:41)
[2020-09-24] MEDS: traZODone 50 MG TABLET. PO SCH (19:41)
[2020-09-24] MEDS: HYDROcodone/APAP 7.5/325MG 1 TAB TABLET PO PRN (21:59)
[2020-09-25 05:50] VITALS: BP 118/69
[2020-09-25] MEDS: LACTOBACILLUS RHAMNOSUS GG 1 CAPSULE. PO SCH ×2 (08:04→19:40)
[2020-09-25] MEDS: CALCIUM CARBONATE 500 MG TAB.CHEW PO SCH ×3 (08:04→18:00)
[2020-09-25] MEDS: METOPROLOL SUCC 24HR ER 25 MG TAB.ER.24H. PO SCH (08:06)
[2020-09-25] MEDS: amLODIPine BESYLATE 10 MG TABLET PO SCH (08:06)
[2020-09-25] MEDS: GABAPENTIN 300 MG CAPSULE. PO SCH ×2 (08:07→19:39)
[2020-09-25 15:38] VITALS: BP 153/84
[2020-09-25] MEDS: ACETAMINOPHEN 325 MG TABLET PO PRN (19:39)
[2020-09-25] MEDS: CYCLOBENZAPRINE 10 MG TABLET. PO PRN (19:39)
[2020-09-25] MEDS: ATORVASTATIN CALCIUM 10 MG TABLET. PO SCH (19:39)
[2020-09-25] MEDS: traZODone 50 MG TABLET. PO SCH (19:40)
[2020-09-25] MEDS: QUEtiapine 50 MG TABLET. PO SCH (19:40)
--- NOTE | 2020-09-25 20:56 | PDOC ---
Exam Note: Jassi Note: Late entry for 09/24/2020. Please also refer to the separate dictated note~for this date of service dictated separately.~Patient seen individually. Discussed the patient with Nursing staff reviewed the chart.~Reviewed interim history and current functioning. Reviewed vital signs,~Labs/ Radiology~and current medic ations noted below. Continue current treatment with the changes noted in the dictated addendum note Assessment: Vital Signs/I&O: Vital Signs Date Time Temp Pulse Resp B/P (MAP) Pulse Ox O2 Delivery O2 Flow Rate FiO2 09/25/20 15:38 98.1 92 18 153/84 (107) 97 09/25/20 05:50 Room Air I & O 09/24/20 09/24/20 09/25/20 15:00 23:00 07:00 Intake Total 600 ml 480 ml Balance 600 ml 480 ml Labs: Laboratory Tests Test 09/25/20 06:00 Coronavirus (PCR) Not detected (Not Detected) Current Medications: I have reviewed the current psychotropics carefully including drug interactions. Risk benefit ratio favors no change other than as noted in my dictated progress note. Diagnosis: Problems: (1) Bipolar disorder, unspecified (2) Anxiety disorder, unspecified (3) Impulse control disorder, unspecified OBDULIA MOLINA MD Sep 25, 2020 20:56
--- NOTE | 2020-09-25 20:57 | PDOC ---
Exam Note: Jassi Note: Please also refer to the separate dictated note~for this date of service dictated separately.~Patient seen individually. Discussed the patient with Nursing staff reviewed the chart.~Reviewed interim history and current functioning. Reviewed vital signs,~Labs/ Radiology~and current medications noted below. Continue current treatment with the changes noted in the dictated addendum note Assessment: Vital Signs/I&O: Vital Signs Date Time Temp Pulse Resp B/P (MAP) Pulse Ox O2 Delivery O2 Flow Rate FiO2 09/25/20 15:38 98.1 92 18 153/84 (107) 97 09/25/20 05:50 Room Air I & O 09/24/20 09/24/20 09/25/20 15:00 23:00 07:00 Intake Total 600 ml 480 ml Balance 600 ml 480 ml Labs: Laboratory Tests Test 09/25/20 06:00 Coronavirus (PCR) Not detected (Not Detected) Current Medications: I have reviewed the current psychotropics carefully including drug interactions. Risk benefit ratio favors no change other than as noted in my dictated progress note. Diagnosis: Problems: (1) Bipolar disorder, unspecified (2) Anxiety disorder, unspecified (3) Impulse control disorder, unspecified OBDULIA MOLINA MD Sep 25, 2020 20:57
[2020-09-26 06:06] VITALS: BP 125/74
--- NOTE | 2020-09-26 07:34 | PDOC ---
Exam Note: Jassi Note: This note is a late entry for 09/23/2020 covers elements not covered in my initial note. Subjective: The patient was seen face to face in the morning of 09/23/2020 for a treatment team meeting with Samra Hsu, Eula Ellsworth and Shirin (social welfare research worker), Rosana Sanchez, activity therapy and Vel HOLLINGSWORTH, discussed and reviewed the chart. He slept 6-1/2 hours previous night. The patient spends much time in his room. He does not complain of anymore dental pain. Review of Systems: Denies back pain. No CV, , pulmonary, eye system symptoms on review. Mental Status Exam: The patient is reasonably oriented. He is pleasant, verbal, interactive. Speech is coherent, has some latency. Abstraction is fair. Computation is impaired. Language function is intact. Mood and affect is withdrawn. Laboratory Data: Reviewed. Impression: Bipolar disorder unspecified. Anxiety disorder unspecified. Impulse control disorder. Plan: No change from initial note. Assessment: Vital Signs/I&O: Vital Signs Date Time Temp Pulse Resp B/P (MAP) Pulse Ox O2 Delivery O2 Flow Rate FiO2 09/26/20 06:06 97.6 67 20 125/74 (91) 94 09/25/20 05:50 Room Air I & O 09/25/20 09/25/20 09/26/20 15:00 23:00 07:00 Intake Total 720 ml 360 ml Balance 720 ml 360 ml Current Medications: I have reviewed the current psychotropics carefully including drug interactions. Risk benefit ratio favors no change other than as noted in my dictated progress note. Diagnosis: Problems: (1) Bipolar disorder, unspecified (2) Anxiety disorder, unspecified (3) Impulse control disorder, unspecified OBDULIA MOLINA MD Sep 26, 2020 07:34
--- NOTE | 2020-09-26 07:41 | PDOC ---
Exam Note: Jassi Note: This note is a late entry for 09/24/2020 covers elements not covered in my initial note. Subjective: The patient was seen face to face in the evening of 09/24/2020 with Zuleima HOLLINGSWORTH, discussed and reviewed the chart. He slept 6-1/4 hours previous night. He has been appropriate, spends much time in his room. The patient is quite adamant. He is not having any dental pain but I discussed with nursing staff to make sure he follows up with the dentist post discharge. Review of Systems: Denies back pain. No CV, , pulmonary, eye system symptoms on review. Mental Status Exam: The patient is reasonably oriented. Speech is coherent, has some latency. Abstraction is fair. Computation is impaired. Language function is intact. Mood and affect is withdrawn. Laboratory Data: Reviewed. Impression: Bipolar disorder unspecified. Anxiety disorder unspecified. Impulse control disorder. Plan: No change from initial note. Assessment: Vital Signs/I&O: Vital Signs Date Time Temp Pulse Resp B/P (MAP) Pulse Ox O2 Delivery O2 Flow Rate FiO2 09/26/20 06:06 97.6 67 20 125/74 (91) 94 09/25/20 05:50 Room Air I & O 09/25/20 09/25/20 09/26/20 15:00 23:00 07:00 Intake Total 720 ml 360 ml Balance 720 ml 360 ml Current Medications: I have reviewed the current psychotropics carefully including drug interactions. Risk benefit ratio favors no change other than as noted in my dictated progress note. Diagnosis: Problems: (1) Bipolar disorder, unspecified (2) Anxiety disorder, unspecified (3) Impulse control disorder, unspecified OBDULIA MOLINA MD Sep 26, 2020 07:41
--- NOTE | 2020-09-26 07:43 | PDOC ---
Exam Note: Jassi Note: This note is a late entry for 09/25/2020 covers elements not covered in my initial note. Subjective: The patient was seen face to face in the evening of 09/25/2020 with Zuleima HOLLINGSWORTH, discussed and reviewed the chart. He slept 7-1/2 hours previous night. He has been appropriate, pleasant, and cooperative. He was in his room as I met with him. Review of Systems: Denies any back or knee pain and no CV, , pulmonary, eye system symptoms on review. Mental Status Exam: The patient is reasonably oriented. I met with him in his room, very pleasant, appropriate. We discussed discharge plans for Sunday. He is very accepting of this. Speech is coherent. Abstraction is fair. Computation is impaired. Language function is intact. Mood and affect is withdrawn. Laboratory Data: Reviewed. Impression: Bipolar disorder unspecified. Anxiety disorder unspecified. Impulse control disorder. Plan: No change from initial note. Assessment: Vital Signs/I&O: Vital Signs Date Time Temp Pulse Resp B/P (MAP) Pulse Ox O2 Delivery O2 Flow Rate FiO2 09/26/20 06:06 97.6 67 20 125/74 (91) 94 09/25/20 05:50 Room Air I & O 09/25/20 09/25/20 09/26/20 15:00 23:00 07:00 Intake Total 720 ml 360 ml Balance 720 ml 360 ml Current Medications: I have reviewed the current psychotropics carefully including drug interactions. Risk benefit ratio favors no change other than as noted in my dictated progress note. Diagnosis: Problems: (1) Bipolar disorder, unspecified (2) Anxiety disorder, unspecified (3) Impulse control disorder, unspecified OBDULIA MOLINA MD Sep 26, 2020 07:43
[2020-09-26] MEDS: CALCIUM CARBONATE 500 MG TAB.CHEW PO SCH ×3 (07:54→18:00)
[2020-09-26] MEDS: LACTOBACILLUS RHAMNOSUS GG 1 CAPSULE. PO SCH ×2 (07:54→18:23)
[2020-09-26] MEDS: METOPROLOL SUCC 24HR ER 25 MG TAB.ER.24H. PO SCH (07:55)
[2020-09-26] MEDS: amLODIPine BESYLATE 10 MG TABLET PO SCH (07:55)
[2020-09-26] MEDS: GABAPENTIN 300 MG CAPSULE. PO SCH ×2 (07:58→18:24)
[2020-09-26 15:25] VITALS: BP 141/84
[2020-09-26] MEDS: ACETAMINOPHEN 325 MG TABLET PO PRN (18:23)
[2020-09-26] MEDS: QUEtiapine 50 MG TABLET. PO SCH (18:23)
[2020-09-26] MEDS: CYCLOBENZAPRINE 10 MG TABLET. PO PRN (18:23)
[2020-09-26] MEDS: traZODone 50 MG TABLET. PO SCH (18:24)
[2020-09-26] MEDS: ATORVASTATIN CALCIUM 10 MG TABLET. PO SCH (18:24)
--- NOTE | 2020-09-26 20:50 | PDOC ---
Exam Note: Jassi Note: Please also refer to the separate dictated note~for this date of service dictated separately.~Patient seen individually. Discussed the patient with Nursing staff reviewed the chart.~Reviewed interim history and current functioning. Reviewed vital signs,~Labs/ Radiology~and current medications noted below. Continue current treatment with the changes noted in the dictated addendum note Assessment: Vital Signs/I&O: Vital Signs Date Time Temp Pulse Resp B/P (MAP) Pulse Ox O2 Delivery O2 Flow Rate FiO2 09/26/20 15:25 97.9 100 18 141/84 (103) 97 09/25/20 05:50 Room Air I & O 09/25/20 09/25/20 09/26/20 14:59 22:59 06:59 Intake Total 720 ml 360 ml Balance 720 ml 360 ml Current Medications: I have reviewed the current psychotropics carefully including drug interactions. Risk benefit ratio favors no change other than as noted in my dictated progress note. Diagnosis: Problems: (1) Bipolar disorder, unspecified (2) Anxiety disorder, unspecified (3) Impulse control disorder, unspecified OBDULIA MOLINA MD Sep 26, 2020 20:50
[2020-09-27] MEDS ORDERED: LACT1CAP21 PO (00:21)
[2020-09-27] MEDS ORDERED: HYDR-2765 PO (00:23)
[2020-09-27 06:17] VITALS: BP 166/98
[2020-09-27 07:44] VITALS: BP 166/98
[2020-09-27] MEDS: METOPROLOL SUCC 24HR ER 25 MG TAB.ER.24H. PO SCH (07:44)
[2020-09-27] MEDS: amLODIPine BESYLATE 10 MG TABLET PO SCH (07:44)
[2020-09-27] MEDS: GABAPENTIN 300 MG CAPSULE. PO SCH (07:44)
[2020-09-27] MEDS: LACTOBACILLUS RHAMNOSUS GG 1 CAPSULE. PO SCH (07:44)
[2020-09-27] MEDS: CALCIUM CARBONATE 500 MG TAB.CHEW PO SCH (07:45)
--- NOTE | 2020-09-27 08:25 | PDOC ---
Exam Note: Jassi Note: This note is a late entry for 09/26/2020 covers elements not covered in my initial note. Subjective: The patient was seen face to face in the evening of 09/26/2020 with Zuleima HOLLINGSWORTH, discussed and reviewed the chart. He slept 9-1/4 hours previous night. Review of Systems: He denies any further toothache but agrees to follow up outpatient with the dentist. No complaints of pain in his knee or side. No CV, , pulmonary, eye system symptoms on review. Mental Status Exam: The patient is reasonably oriented. I met with him in his room. He is pleasant, verbal, and interactive. We discussed discharge plans for 09/27 and he is agreeable to this. Speech is coherent. Abstraction is fair . Computation is impaired. Language function is intact. Mood and affect is withdrawn. Laboratory Data: Reviewed. Impression: Bipolar disorder unspecified. Anxiety disorder unspecified. Impulse control disorder. Plan: No change from initial note. Assessment: Vital Signs/I&O: Vital Signs Date Time Temp Pulse Resp B/P (MAP) Pulse Ox O2 Delivery O2 Flow Rate FiO2 09/27/20 07:44 87 166/98 09/27/20 06:17 98.1 14 94 Room Air I & O 09/26/20 09/26/20 09/27/20 15:00 23:00 07:00 Intake Total 600 ml 360 ml 240 ml Balance 600 ml 360 ml 240 ml Current Medications: Meds: Current Medications Medications (Trade) Dose Ordered Sig/Vicente Route PRN Reason Start Time Stop Time Status Last Admin Dose Admin Acetaminophen (Tylenol) 650 mg PRN Q6HRS PRN PO MILD PAIN / TEMP > 100.3'F 06/05/20 16:45 08/20/20 15:27 DC 08/20/20 08:58 Multi-Ingredient Ointment (Analgesic [place]) 1 martina PRN QID PRN TP MUSCLE PAIN 06/05/20 16:45 Cancel Al Hydroxide/Mg Hydroxide (Mylanta Plus Xs) 15 ml PRN AFTMEALHC PRN PO DYSPEPSIA 06/05/20 16:45 06/06/20 17:08 DC Magnesium Hydroxide (Milk Of Magnesia) 2,400 mg PRN QHS PRN PO CONSTIPATION 06/05/20 16:45 09/20/20 14:41 Acetaminophen (Tylenol) 1,000 mg BID PO 06/05/20 21:00 06/25/20 12:00 DC 06/23/20 09:08 Amlodipine Besylate (Norvasc) 5 mg DAILY PO 06/06/20 09:00 09/27/20 07:44 Cetirizine HCl (ZyrTEC) 10 mg PRN DAILY PRN PO ALLERGIES 06/05/20 18:15 07/29/20 12:21 Cyclobenzaprine HCl (Flexeril) 10 mg PRN QHS PRN PO MUSCLE SPASMS 06/05/20 18:15 09/26/20 18:23 Diclofenac Sodium (Voltaren) 1 martina PRN Q6HRS PRN TP MUSCLE SKELETAL PAIN 06/05/20 18:15 09/22/20 20:07 Divalproex Sodium (Depakote Er) 1,000 mg QHS PO 06/05/20 21:00 06/07/20 11:57 DC 06/06/20 20:47 Al Hydroxide/Mg Hydroxide (Mylanta Plus Xs) 15 ml PRN AFTMEALHC PRN PO DYSPEPSIA 06/05/20 18:15 Metoprolol Succinate (Toprol Xl) 25 mg DAILY PO 06/06/20 09:00 09/27/20 07:44 Trazodone HCl (Desyrel) 50 mg QHS PO 06/05/20 21:00 09/26/20 18:24 Calcium Carbonate/ Glycine (Tums) 500 mg TIDAFTMEAL PO 06/05/20 18:45 09/27/20 07:45 Magnesium Hydroxide (Milk Of Magnesia) 2,400 mg PRN QHS PRN PO CONSTIPATION 06/05/20 18:45 06/06/20 17:08 DC Multi-Ingredient Ointment (Analgesic [place]) 1 martina PRN QID PRN TP MUSCLE PAIN 06/05/20 18:45 06/06/20 17:09 DC Divalproex Sodium (Depakote Er) 1,250 mg QHS PO 06/07/20 21:00 06/15/20 19:47 DC 06/14/20 20:16 Vitamin D (Vitamin D3) 50,000 unit WEEKLY PO 06/07/20 17:15 09/20/20 08:11 Atorvastatin Calcium (Lipitor) 10 mg QHS PO 06/07/20 21:00 09/26/20 18:24 Quetiapine Fumarate (SEROquel) 25 mg QHS PO 06/09/20 21:00 09/17/20 17:52 DC 09/16/20 19:49 Divalproex Sodium (Depakote Er) 250 mg QHS PO 06/15/20 21:00 06/21/20 17:39 DC 06/20/20 20:20 Divalproex Sodium (Depakote Er) 1,000 mg QHS PO 06/15/20 21:00 06/21/20 17:39 DC 06/20/20 20:21 Gabapentin (Neurontin) 300 mg BID PO 06/21/20 21:00 09/27/20 07:44 Acetaminophen/ Hydrocodone Bitart (Lortab 5/325) 1 tab PRN Q6HRS PRN PO MOD-SEV PAIN 08/17/20 17:15 09/18/20 19:59 DC 09/17/20 20:42 Acetaminophen (Tylenol) 1,300 mg PRN Q8HRS PRN PO MILD PAIN / TEMP > 100.3'F 08/20/20 15:30 08/27/20 19:41 DC Acetaminophen (Tylenol) 650 mg PRN Q6HRS PRN PO MILD PAIN / TEMP > 100.3'F 08/27/20 19:45 09/26/20 18:23 Quetiapine Fumarate (SEROquel) 50 mg QHS PO 09/17/20 21:00 09/26/20 18:23 Clindamycin HCl (Cleocin) 300 mg BID PO 09/18/20 21:00 09/24/20 09:00 DC 09/24/20 08:04 Acetaminophen/ Hydrocodone Bitart (Lortab 7.5/325) 1 tab PRN Q4HRS PRN PO MOD-SEV PAIN 09/18/20 20:00 09/24/20 21:59 Lactobacillus Rhamnosus (Culturelle) 1 cap BID PO 09/20/20 21:00 09/27/20 07:44 I have reviewed the current psychotropics carefully including drug interactions. Risk benefit ratio favors no change other than as noted in my dictated progress note. Diagnosis: Problems: (1) Bipolar disorder, unspecified (2) Anxiety disorder, unspecified (3) Impulse control disorder, unspecified OBDULIA MOLINA MD Sep 27, 2020 08:25
[2020-09-27] MEDS: CHOLECALCIFEROL (VITAMIN D3) 50,000 UNIT CAPSULE PO SCH (09:00)
--- NOTE | 2020-09-27 20:58 | PDOC ---
Exam Note: Jassi Note: Please also refer to the separate dictated note~for this date of service dictated separately.~Patient seen individually. Discussed the patient with Nursing staff reviewed the chart.~Reviewed interim history and current functioning. Reviewed vital signs,~Labs/ Radiology~and current medications noted below. Continue current treatment with the changes noted in the dictated addendum note Assessment: Vital Signs/I&O: Vital Signs Date Time Temp Pulse Resp B/P (MAP) Pulse Ox O2 Delivery O2 Flow Rate FiO2 09/27/20 07:44 87 166/98 09/27/20 06:17 98.1 14 94 Room Air I & O 09/26/20 09/26/20 09/27/20 15:00 23:00 07:00 Intake Total 600 ml 360 ml 240 ml Balance 600 ml 360 ml 240 ml Current Medications: Meds: Current Medications Medications (Trade) Dose Ordered Sig/Vicente Route PRN Reason Start Time Stop Time Status Last Admin Dose Admin Acetaminophen (Tylenol) 650 mg PRN Q6HRS PRN PO MILD PAIN / TEMP > 100.3'F 06/05/20 16:45 08/20/20 15:27 DC 08/20/20 08:58 Multi-Ingredient Ointment (Analgesic [place]) 1 martina PRN QID PRN TP MUSCLE PAIN 06/05/20 16:45 Cancel Al Hydroxide/Mg Hydroxide (Mylanta Plus Xs) 15 ml PRN AFTMEALHC PRN PO DYSPEPSIA 06/05/20 16:45 06/06/20 17:08 DC Magnesium Hydroxide (Milk Of Magnesia) 2,400 mg PRN QHS PRN PO CONSTIPATION 06/05/20 16:45 09/27/20 12:22 DC 09/20/20 14:41 Acetaminophen (Tylenol) 1,000 mg BID PO 06/05/20 21:00 06/25/20 12:00 DC 06/23/20 09:08 Amlodipine Besylate (Norvasc) 5 mg DAILY PO 06/06/20 09:00 09/27/20 12:22 DC 09/27/20 07:44 Cetirizine HCl (ZyrTEC) 10 mg PRN DAILY PRN PO ALLERGIES 06/05/20 18:15 09/27/20 12:22 DC 07/29/20 12:21 Cyclobenzaprine HCl (Flexeril) 10 mg PRN QHS PRN PO MUSCLE SPASMS 06/05/20 18:15 09/27/20 12:22 DC 09/26/20 18:23 Diclofenac Sodium (Voltaren) 1 martina PRN Q6HRS PRN TP MUSCLE SKELETAL PAIN 06/05/20 18:15 09/27/20 12:22 DC 09/22/20 20:07 Divalproex Sodium (Depakote Er) 1,000 mg QHS PO 06/05/20 21:00 06/07/20 11:57 DC 06/06/20 20:47 Al Hydroxide/Mg Hydroxide (Mylanta Plus Xs) 15 ml PRN AFTMEALHC PRN PO DYSPEPSIA 06/05/20 18:15 09/27/20 12:22 DC Metoprolol Succinate (Toprol Xl) 25 mg DAILY PO 06/06/20 09:00 09/27/20 12:22 DC 09/27/20 07:44 Trazodone HCl (Desyrel) 50 mg QHS PO 06/05/20 21:00 09/27/20 12:22 DC 09/26/20 18:24 Calcium Carbonate/ Glycine (Tums) 500 mg TIDAFTMEAL PO 06/05/20 18:45 09/27/20 12:22 DC 09/27/20 07:45 Magnesium Hydroxide (Milk Of Magnesia) 2,400 mg PRN QHS PRN PO CONSTIPATION 06/05/20 18:45 06/06/20 17:08 DC Multi-Ingredient Ointment (Analgesic [place]) 1 martina PRN QID PRN TP MUSCLE PAIN 06/05/20 18:45 06/06/20 17:09 DC Divalproex Sodium (Depakote Er) 1,250 mg QHS PO 06/07/20 21:00 06/15/20 19:47 DC 06/14/20 20:16 Vitamin D (Vitamin D3) 50,000 unit WEEKLY PO 06/07/20 17:15 09/27/20 12:22 DC 09/20/20 08:11 Atorvastatin Calcium (Lipitor) 10 mg QHS PO 06/07/20 21:00 09/27/20 12:22 DC 09/26/20 18:24 Quetiapine Fumarate (SEROquel) 25 mg QHS PO 06/09/20 21:00 09/17/20 17:52 DC 09/16/20 19:49 Divalproex Sodium (Depakote Er) 250 mg QHS PO 06/15/20 21:00 06/21/20 17:39 DC 06/20/20 20:20 Divalproex Sodium (Depakote Er) 1,000 mg QHS PO 06/15/20 21:00 06/21/20 17:39 DC 06/20/20 20:21 Gabapentin (Neurontin) 300 mg BID PO 06/21/20 21:00 09/27/20 12:22 DC 09/27/20 07:44 Acetaminophen/ Hydrocodone Bitart (Lortab 5/325) 1 tab PRN Q6HRS PRN PO MOD-SEV PAIN 08/17/20 17:15 09/18/20 19:59 DC 09/17/20 20:42 Acetaminophen (Tylenol) 1,300 mg PRN Q8HRS PRN PO MILD PAIN / TEMP > 100.3'F 08/20/20 15:30 08/27/20 19:41 DC Acetaminophen (Tylenol) 650 mg PRN Q6HRS PRN PO MILD PAIN / TEMP > 100.3'F 08/27/20 19:45 09/27/20 12:22 DC 09/26/20 18:23 Quetiapine Fumarate (SEROquel) 50 mg QHS PO 09/17/20 21:00 09/27/20 12:22 DC 09/26/20 18:23 Clindamycin HCl (Cleocin) 300 mg BID PO 09/18/20 21:00 09/24/20 09:00 DC 09/24/20 08:04 Acetaminophen/ Hydrocodone Bitart (Lortab 7.5/325) 1 tab PRN Q4HRS PRN PO MOD-SEV PAIN 09/18/20 20:00 09/27/20 12:22 DC 09/24/20 21:59 Lactobacillus Rhamnosus (Culturelle) 1 cap BID PO 09/20/20 21:00 09/27/20 12:22 DC 09/27/20 07:44 I have reviewed the current psychotropics carefully including drug interactions. Risk benefit ratio favors no change other than as noted in my dictated progress note. Diagnosis: Problems: (1) Bipolar disorder, unspecified (2) Anxiety disorder, unspecified (3) Impulse control disorder, unspecified OBDULIA MOLINA MD Sep 27, 2020 20:58
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
== END 2020-09-27 08:30 | DRG 885 ==
LOC: GEROPSY 15:05
PROVIDERS: ADMIT Psychiatry & Neurology Psychiatry; ATTEND Psychiatry & Neurology Psychiatry
DX: F31.64 Bipolar disorder, current episode mixed, severe, with psychotic features (principal); F01.51 Vascular dementia, unspecified severity, with behavioral disturbance; F02.81 Dementia in other diseases classified elsewhere, unspecified severity, with behavioral disturbance; E55.9 Vitamin D deficiency, unspecified; E78.5 Hyperlipidemia, unspecified; F41.9 Anxiety disorder, unspecified; F63.9 Impulse disorder, unspecified; G30.9 Alzheimer's disease, unspecified; G31.09 Other frontotemporal neurocognitive disorder; G89.29 Other chronic pain; I10 Essential (primary) hypertension; K04.7 Periapical abscess without sinus; M19.90 Unspecified osteoarthritis, unspecified site; Z79.899 Other long term (current) drug therapy; Z86.73 Personal history of transient ischemic attack (TIA), and cerebral infarction without residual deficits; Z88.8 Allergy status to other drugs, medicaments and biological substances; Z20.822 Contact with and (suspected) exposure to COVID-19; Y04.2XXA Assault by strike against or bumped into by another person, initial encounter
CPT/HCPCS: 36415; 70450; 72072; 72100; 80053; 80061; 80164; 81001; 82306; 82607; 83036; 83540; 83550; 84075; 84436; 84443; 84480; 85007; 85025; 85027; 86592; U0003